=== PATIENT | female | born 1965 | race Caucasian/White ===

== ENCOUNTER 2016-11-11 15:16 | Inpatient (IN) | payer MEDICARE ==
[2016-11-11] MEDS ORDERED: Sodium Chloride 0.9% 10 ML FLUSH Syringe IV PRN (15:35)
[2016-11-11] MEDS ORDERED: TYLENOL 325 MG PO PRN (15:42)
[2016-11-11] MEDS ORDERED: xanAX 0.25 MG PO PRN (15:43)
[2016-11-11] MEDS ORDERED: Zofran 4 MG/2 ML VIAL IV PRN (15:43)
[2016-11-11] MEDS ORDERED: solu-MEDROL 125 MG IV SCH (16:00)
[2016-11-11] MEDS: ROCEPHIN 1 Gm-D5w 50 ml Bag** 50 ML IV SCH (16:47)
[2016-11-11 16:54] LABS: BASOPHIL % 0.2 % (0.0-0.4); Eosinophil % 1.1 % (0.00-5.0); Granulocytes % 74.3 % (36.0-66.0); Lymphocytes % 18.8 % (24.0-44.0); Mean Cell Volume 74.5 fl (78-100); Monocytes % 5.6 % (0.0-12.0); Platelet Count 247 K/mm3 (150-450); Red Blood Count 4.67 M/mm3 (4.1-5.4); Red Cell Distribution Width 15.6 % (11.5-14.0); White Blood Count 12.4 K/mm3 (4.0-10.5)
[2016-11-11 17:00] LABS: Mean Corpuscular Hemoglobin 24.1 pg (26-32)
[2016-11-11] MEDS ORDERED: MEDICATION INTERVENTION MC PRN (17:31)
[2016-11-11] MEDS: Zithromax 500 MG/ 250 ML NaCl Premix 250 ML IV SCH (17:46)
[2016-11-11 17:59] LABS: ALBUMIN 2.4 g/dL (3.4-5.0); ANION GAP 14.9 MEQ/L (5-15); BILIRUBIN,TOTAL 0.2 mg/dL (0.2-1.0); Carbon Dioxide 22.6 mEq/L (21-32); Potassium 5.3 mEq/L (3.5-5.1); Total Protein 8.2 gm/dL (6.4-8.2)
[2016-11-11] MEDS ORDERED: GABAPENTIN 1800 MG PO SCH (18:00)
[2016-11-11] MEDS ORDERED: Sodium Chloride 0.9% 1000 ML 1,000 ML IV STA (18:24)
[2016-11-11] MEDS: Lantus Insulin SQ SCH (18:39)
[2016-11-11] MEDS: NovoLOG Insulin SQ PRN ×2 (18:39→22:49)
[2016-11-11] MEDS: NORCO 5/325 MG PO PRN (18:50)
[2016-11-11] MEDS ORDERED: Advair Hfa 230/21 Mcg COMMON CANISTER IH SCH (19:00)
--- NOTE | 2016-11-11 22:33 | XRAY ---
Indication: COPD. Comparison: April 21, 2015. Portable chest demonstrates new right infrahilar infiltrate/atelectasis and bilaterally prominent interstitial opacities. Heart is not enlarged but there is central vascular prominence. No consolidation or large effusion.
[2016-11-11] MEDS: Zocor 10MG PO SCH (22:48)
[2016-11-11] MEDS: Cymbalta 30 MG Capsule PO SCH (22:48)
[2016-11-11] MEDS: Sodium Chloride 0.9% 10 ML FLUSH Syringe IV SCH (23:01)
[2016-11-12] MEDS: solu-MEDROL 40 MG IV SCH ×2 (01:23→10:41)
[2016-11-12] MEDS: Sodium Chloride 0.9% 10 ML FLUSH Syringe IV SCH (06:09)
[2016-11-12] MEDS ORDERED: PROVENTIL 2.5 MG/3 ML NEB IH PRN (06:47)
[2016-11-12 09:29] LABS: BASOPHIL % 0.2 % (0.0-0.4); Eosinophil % 0.1 % (0.00-5.0); Granulocytes % 88.9 % (36.0-66.0); Lymphocytes % 10.2 % (24.0-44.0); Mean Cell Volume 73.8 fl (78-100); Mean Corpuscular Hemoglobin 23.8 pg (26-32); Mean Platelet Volume 10.7 fl (6-9.5); Monocytes % 0.6 % (0.0-12.0); Platelet Count 199 K/mm3 (150-450); Red Cell Distribution Width 15.7 % (11.5-14.0); White Blood Count 11.4 K/mm3 (4.0-10.5)
[2016-11-12 09:57] LABS: ANION GAP 15.4 MEQ/L (5-15); BLOOD UREA NITROGEN 20 mg/dL (9-20); CHLORIDE 94 mEq/L (98-107); Carbon Dioxide 22.6 mEq/L (21-32); Glucose 478 MG/DL (70-110)
[2016-11-12] MEDS ORDERED: Lasix 40 MG PO SCH (10:00)
[2016-11-12] MEDS ORDERED: NON-FORMULARY ITEM (Omeprazole 20 Mg [Prilosec 20 Mg] 20 MG) PO SCH (10:00)
[2016-11-12] MEDS ORDERED: NON-FORMULARY ITEM (Pravastatin Sodium [Pravachol] 10 MG) PO SCH (10:00)
[2016-11-12] MEDS ORDERED: BABY ASPIRIN 81 MG CHEW PO SCH (10:00)
[2016-11-12] MEDS ORDERED: NON-FORMULARY ITEM (Multivitamin [Multivitamins] 1 EACH) PO SCH (10:00)
[2016-11-12] MEDS ORDERED: NovoLOG Insulin SQ PRN (10:02)
[2016-11-12] MEDS ORDERED: Lantus Insulin SQ SCH ×2 (10:02→13:15)
[2016-11-12 10:07] LABS: SODIUM 126 mEq/L (136-145)
[2016-11-12] MEDS: THERAGRAN MULTIVITAMIN PO SCH (10:41)
[2016-11-12] MEDS: ROCEPHIN 1 Gm-D5w 50 ml Bag** 50 ML IV SCH (10:41)
[2016-11-12] MEDS: Zestril 10 MG PO SCH (10:41)
[2016-11-12] MEDS: CLARITIN 10 MG PO SCH (10:41)
[2016-11-12] MEDS: Lantus Insulin SQ SCH ×3 (10:42→22:25)
[2016-11-12] MEDS: Protonix 40MG Tablet PO SCH (10:42)
[2016-11-12] MEDS: ECOTRIN 81 MG PO SCH (10:42)
[2016-11-12] MEDS ORDERED: Sodium Chloride 0.9% 500 ML 500 ML IV ONE (10:52)
[2016-11-12] MEDS ORDERED: NovoLOG Insulin SQ ONE (10:53)
[2016-11-12] MEDS: Spiriva 18 Mcg/Cap Inhaler IH SCH (11:42)
[2016-11-12] MEDS ORDERED: NovoLOG Insulin SQ SCH ×2 (12:00→17:00)
[2016-11-12] MEDS: ENOXAPARIN SODIUM SQ SCH (12:14)
[2016-11-12] MEDS ORDERED: Dextrose 5% -0.45 NaCl 1000 ML 1,000 ML IV PRN (13:36)
[2016-11-12] MEDS: NOVOLIN R INSULIN (FOR DRIPS)** 100 UNITS in Sodium Chloride 0.9% 100 ML IVPB 100 ML IV SCH (13:38)
[2016-11-12] MEDS ORDERED: Sodium Chloride 0.9% 1000 ML 1,000 ML IV SCH (13:45)
--- NOTE | 2016-11-12 14:28 | HP ---
HISTORY OF PRESENT ILLNESS: This is a 51 y/o patient of Dr. Giovanny Porter who presented to his clinic yesterday with increasing shortness of breath and O2 saturation 87% on room air. He made her a direct admission to the hospital for chronic obstructive pulmonary disease exacerbation. The patient had labs drawn. She was found to have a significantly elevated blood glucose. She does have a known history of diabetes mellitus type 2 as well as hyponatremia. He gave her a liter of NS overnight. The patient reports she does feel better today. She is not on any O2 right now. She reports she was having breathing problems for the past week and a half that were getting worse. She had cough and rhinorrhea. She denied any fever. She reports her blood sugars usually run 60-150 and she used to be on insulin pump, but isn't now and uses Humulin R 500 on a sliding scale. She reports that she has been seeing Dr. 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 REVIEW OF SYSTEMS: She denies any diarrhea. No chest pain. No abdominal pain. No constipation. No diarrhea. She reports pain in her left hip. Otherwise, Review of Systems is negative. PAST MEDICAL HISTORY: Diabetes mellitus type 2, history of left diabetic foot ulcer, asthma, chronic obstructive pulmonary disease, depression, and hypertension. PAST SURGICAL HISTORY: Cholecystectomy, hysterectomy, tonsillectomy, left foot surgery 09/28/16, left hip surgery for bone graft also in 09/2016. SOCIAL HISTORY: She smokes 10 cigarettes per day. She denies any alcohol use. She lives with her daughter. FAMILY HISTORY: Her mother is and had a brain aneurysm. Her father is living. HOME MEDICATIONS: Albuterol 2 puffs q 3 h PRN, aspirin 81 mg PO daily, Symbicort 160/4.5 mcg 2 puffs bid, Cymbalta 60 mg PO q HS, furosemide 40 mg PO daily, gabapentin 1800 mg PO in the evening, lisinopril 10 mg PO daily, loratadine 10 mg PO daily, multivitamin 1 tab daily, omeprazole 20 mg PO daily, pravastatin 10 mg PO daily, Spiriva 1 capsule inhaled daily, again she also says she is on the Humalog 500 at home on a sliding scale. ALLERGIES: ADHESIVE BAND-AIDS, BEE STINGS. PHYSICAL EXAMINATION: VITAL SIGNS: Temperature current 98.2, temperature maximum 99.8, heart rate 99-117, respiratory rate 17-20, O2 saturation 92-95% on room air, BP 104-142/55-74. GENERAL: The patient is lying in bed a pleasant lady in no acute distress. CVS: She has a regular rate and rhythm. No murmurs, gallops, or rubs are appreciated. CHEST: Clear to auscultation bilaterally. No crackles or wheezes. ABDOMEN: Soft, nontender, nondistended with normal bowel sounds. EXTREMITIES: The inside of her left ankle, she has a scar with a pinpoint opening which she states sometimes drains fluid. Her left hip has approximately 4 cm opening that is packed and covered with a bandage. No clubbing, cyanosis, or edema of her lower extremities. LABORATORY DATA: On admission, her glucose was 671, sodium 119, potassium 5.3, chloride 86. WBC 12.4 with 74% granulocytes, 18% lymphocytes, albumin 2.4. Repeat WBC this morning 11.4 with 88% granulocytes, 10% lymphocytes. She has a wound culture in lab from her left foot and blood cultures in lab. Chest x-ray was read as new right infrahilar infiltrates, this was a portable x-ray. ASSESSMENT AND PLAN: 1. CHRONIC OBSTRUCTIVE PULMONARY DISEASE EXACERBATION. She was started on IV ceftriaxone and azithromycin. She was also started on methylprednisolone. She had 125 mg IV once and then decreased to 40 mg IV q 8. She is also receiving breathing treatments. She is currently not needing O2. 2. DIABETES MELLITUS TYPE 2 UNCONTROLLED. I have ordered an Hgb A1C. She has been started on Lantus. Will start her on some short-acting insulin with her meals and she may need her Lantus increased. We are rechecking a BMP this morning. 3. HYPERTENSION. Currently well controlled on her home medications. 4. LEFT HIP WOUND. Her wound VAC had to be removed as her daughter couldn't come back in to bring in the cord and chicken sexer. Will as for physical therapy consult. 5. PNEUMONIA IN THE RIGHT LUNG. Will continue with current antibiotics. 6. HYPONATREMIA. Again, she got a liter of NS last night. We are rechecking her sodium this morning. 7. DEEP VEIN THROMBOSIS PROPHYLAXIS. Will start her on Lovenox.
[2016-11-12 15:26] LABS: ANION GAP 14.3 MEQ/L (5-15); Carbon Dioxide 21.8 mEq/L (21-32); MAGNESIUM 1.5 mg/dL (1.8-2.4); Potassium 4.2 mEq/L (3.5-5.1)
[2016-11-12] MEDS: Magnesium 1 Gm / 100 Ml D5W*** 100 ML IV PRN ×2 (16:27→17:02)
[2016-11-12] MEDS: Zithromax 500 MG/ 250 ML NaCl Premix 250 ML IV SCH (17:40)
[2016-11-12] MEDS: PATIENT OWN MEDICATION PO SCH (17:41)
[2016-11-12 20:33] LABS: ANION GAP 14.8 MEQ/L (5-15); Carbon Dioxide 20.4 mEq/L (21-32); Potassium 4.5 mEq/L (3.5-5.1)
[2016-11-12] MEDS: Cymbalta 30 MG Capsule PO SCH (22:01)
[2016-11-12] MEDS: Zocor 10MG PO SCH (22:01)
[2016-11-12] MEDS: Sodium Chloride 0.9% 1000 ML 1,000 ML IV SCH (22:02)
[2016-11-12] MEDS ORDERED: Lantus Insulin ONE (22:21)
[2016-11-12 23:58] LABS: ANION GAP 10.9 MEQ/L (5-15); BLOOD UREA NITROGEN 21 mg/dL (9-20); CHLORIDE 99 mEq/L (98-107); Carbon Dioxide 24.2 mEq/L (21-32); Glucose 140 MG/DL (70-110); Potassium 4.4 mEq/L (3.5-5.1); SODIUM 130 mEq/L (136-145)
[2016-11-13] MEDS: NOVOLIN R INSULIN (FOR DRIPS)** 100 UNITS in Sodium Chloride 0.9% 100 ML IVPB 100 ML IV SCH (05:02)
[2016-11-13 05:38] LABS: BASOPHIL % 0.2 % (0.0-0.4); Eosinophil % 0.8 % (0.00-5.0); Granulocytes % 64.4 % (36.0-66.0); Lymphocytes % 28.6 % (24.0-44.0); Mean Cell Volume 74.4 fl (78-100); Mean Platelet Volume 9.5 fl (6-9.5); Platelet Count 172 K/mm3 (150-450); Red Blood Count 3.79 M/mm3 (4.1-5.4); Red Cell Distribution Width 15.5 % (11.5-14.0)
[2016-11-13 05:56] LABS: ANION GAP 12.6 MEQ/L (5-15); BLOOD UREA NITROGEN 19 mg/dL (9-20); CHLORIDE 99 mEq/L (98-107); Carbon Dioxide 22.8 mEq/L (21-32); Glucose 135 MG/DL (70-110); SODIUM 130 mEq/L (136-145)
[2016-11-13] MEDS ORDERED: NovoLOG Insulin SQ PRN (06:00)
[2016-11-13] MEDS: Magnesium 1 Gm / 100 Ml D5W*** 100 ML IV PRN ×2 (07:27→08:24)
[2016-11-13] MEDS: NovoLOG Insulin SQ SCH ×3 (08:02→16:43)
[2016-11-13] MEDS: Spiriva 18 Mcg/Cap Inhaler IH SCH (09:05)
[2016-11-13] MEDS: ADVAIR 500-50 DISKUS IH SCH ×2 (09:06→18:49)
--- NOTE | 2016-11-13 09:30 | PCM.NOTE ---
Date and Time: 11/13/16924 Subjective Assessment: Patient reports she wants to go home but she was just taken off the insulin drip last night and started on lantus and novolog and she does not have these insulins at home. I explained to her that is best to make sure that her blood glucoses are stable and that she doesn't have any lows so that she won't need to come right back and also it is best for her wound healing to have her blood glucoses controlled as her Hgb A1C was 12. She reports she used to see Dr. Roger but needs to make an appointment with him. She reports her breathing is better. - Review of Systems Constitutional: No Symptoms Eyes: No Symptoms Ears, Nose, & Throat: No Symptoms Respiratory: Cough Cardiac: No Symptoms Abdominal/Gastrointestinal: No Symptoms Genitourinary Symptoms: No Symptoms Musculoskeletal: No Symptoms Skin: No Symptoms Neurological: No Symptoms Objective Exam General Appearance: no apparent distress, alert Neurologic Exam: alert, cooperative, normal mood/affect Skin Exam: normal color, warm, dry, other (areas on toes with dried blood, inside of left ankle with scar, left hip with dressing in place (wound was visualized yesterday)) Respiratory Exam: normal breath sounds, lungs clear, No crackles/rales, No rhonchi, No wheezing Cardiovascular Exam: regular rate/rhythm, normal heart sounds, No murmur, No friction rub, No gallop Gastrointestinal/Abdomen Exam: soft, normal bowel sounds, No tenderness, No distention, No mass Extremity Exam: other (no c/c/e, +2 dorsalis pedis pusles bilat) OBJECTIVE DATA Vital Signs: Vital Signs - 24 hr Temp Pulse Resp BP BP Pulse Ox 11/13/16 08:00 98 H 11/13/16 05:00 98.5 F 98 H 20 136/77 96 11/13/16 00:00 98.1 F 99 H 19 128/73 98 11/12/16 20:00 96.0 F 100 H 19 112/71 97 11/12/16 16:00 98.2 F 105 H 19 112/71 94 L 11/12/16 12:00 98.4 F 112 H 24 141/65 90 L Pain Assessment - Last Documented Pain Intensity 0 Pain Scale Used FLACC Intake and Output: Intake & Output 03/10/11/12/16 11/13/16 11/14/16 05:59 05:59 06:59 06:59 Intake Total Output Total Balance Weight Lab Results: Accuchecks 11/13/1611/13/1611/12/1611/12/1611/12/1611/12/1611/12/1611/12/1611/12/1611/12/1611/12/1611/12/1611/12/1611/12/16 Time 00:00 Time 23:05 Time 22:25 Time 22:05 Time 21:00 Time 20:00 Time 19:00 Time 18:00 Time 17:00 Time 16:00 Time 15:00 Time 14:00 Time 13:00 Accucheck Value: 145 Accucheck Value: 154 Accucheck Value: 191 Accucheck Value: 254 Accucheck Value: 352 Accucheck Value: 400 Accucheck Value: 362 Accucheck Value: 356 Accucheck Value: 373 Accucheck Value: 471 Accucheck Value: 531 Accucheck Value: 590 Lab Results-Last 24 Hours 11/12/16 11/12/16 11/12/16 Range/Units 09:15 09:15 09:15 WBC 11.4 H (4.0-10.5) K/mm3 RBC 4.70 (4.1-5.4) M/mm3 Hgb 11.2 L (12.0-16.0) gm/dl Hct 34.7 L (35-47) % MCV 73.8 L (78-100) fl MCH 23.8 L (26-32) pg MCHC 32.3 (32-36) g/dl RDW 15.7 H (11.5-14.0) % Plt Count 199 (150-450) K/mm3 MPV 10.7 H (6-9.5) fl Gran % 88.9 H (36.0-66.0) % Lymphocytes % 10.2 L (24.0-44.0) % Monocytes % 0.6 (0.0-12.0) % Eosinophils % 0.1 (0.00-5.0) % Basophils % 0.2 (0.0-0.4) % Basophils # 0.02 (0-0.4) Sodium 126 L (136-145) mEq/L Potassium 6.0 H* (3.5-5.1) mEq/L Chloride 94 L (98-107) mEq/L Carbon Dioxide 22.6 (21-32) mEq/L Anion Gap 15.4 H (5-15) MEQ/L BUN 20 (9-20) mg/dL Creatinine 1.00 (0.55-1.30) mg/dl Estimated GFR > 60 ML/MIN Glucose 478 H (70-110) MG/DL Hemoglobin A1c 12.0 H (4.5-6.2) Calcium 8.9 (8.5-10.1) mg/dL Magnesium (1.8-2.4) mg/dL Serum , Qual (Negative) 11/12/16 11/12/16 11/12/16 Range/Units 11:40 15:00 15:00 WBC (4.0-10.5) K/mm3 RBC (4.1-5.4) M/mm3 Hgb (12.0-16.0) gm/dl Hct (35-47) % MCV (78-100) fl MCH (26-32) pg MCHC (32-36) g/dl RDW (11.5-14.0) % Plt Count (150-450) K/mm3 MPV (6-9.5) fl Gran % (36.0-66.0) % Lymphocytes % (24.0-44.0) % Monocytes % (0.0-12.0) % Eosinophils % (0.00-5.0) % Basophils % (0.0-0.4) % Basophils # (0-0.4) Sodium 127 L (136-145) mEq/L Potassium 4.2 (3.5-5.1) mEq/L Chloride 95 L (98-107) mEq/L Carbon Dioxide 21.8 (21-32) mEq/L Anion Gap 14.3 (5-15) MEQ/L BUN 22 H (9-20) mg/dL Creatinine 1.11 (0.55-1.30) mg/dl Estimated GFR 56 ML/MIN Glucose 582 H* 471 H (70-110) MG/DL Hemoglobin A1c (4.5-6.2) Calcium 8.6 (8.5-10.1) mg/dL Magnesium 1.5 L (1.8-2.4) mg/dL Serum , Qual NEGATIVE (Negative) 11/12/16 11/12/16 11/13/16 Range/Units 20:11 23:40 05:25 WBC 9.0 (4.0-10.5) K/mm3 RBC 3.79 L (4.1-5.4) M/mm3 Hgb 9.1 L (12.0-16.0) gm/dl Hct 28.2 L (35-47) % MCV 74.4 L (78-100) fl MCH 24.0 L (26-32) pg MCHC 32.3 (32-36) g/dl RDW 15.5 H (11.5-14.0) % Plt Count 172 (150-450) K/mm3 MPV 9.5 (6-9.5) fl Gran % 64.4 (36.0-66.0) % Lymphocytes % 28.6 (24.0-44.0) % Monocytes % 6.0 (0.0-12.0) % Eosinophils % 0.8 (0.00-5.0) % Basophils % 0.2 (0.0-0.4) % Basophils # 0.02 (0-0.4) Sodium 130 L 130 L (136-145) mEq/L Potassium 4.5 4.4 (3.5-5.1) mEq/L Chloride 99 99 (98-107) mEq/L Carbon Dioxide 20.4 L 24.2 (21-32) mEq/L Anion Gap 14.8 10.9 (5-15) MEQ/L BUN 21 H 21 H (9-20) mg/dL Creatinine 1.21 0.98 (0.55-1.30) mg/dl Estimated GFR 50 > 60 ML/MIN Glucose 342 H 140 H (70-110) MG/DL Hemoglobin A1c (4.5-6.2) Calcium 8.3 L 8.3 L (8.5-10.1) mg/dL Magnesium (1.8-2.4) mg/dL Serum , Qual (Negative) 11/13/16 11/13/16 Range/Units 05:25 05:25 WBC (4.0-10.5) K/mm3 RBC (4.1-5.4) M/mm3 Hgb (12.0-16.0) gm/dl Hct (35-47) % MCV (78-100) fl MCH (26-32) pg MCHC (32-36) g/dl RDW (11.5-14.0) % Plt Count (150-450) K/mm3 MPV (6-9.5) fl Gran % (36.0-66.0) % Lymphocytes % (24.0-44.0) % Monocytes % (0.0-12.0) % Eosinophils % (0.00-5.0) % Basophils % (0.0-0.4) % Basophils # (0-0.4) Sodium 130 L (136-145) mEq/L Potassium 4.0 (3.5-5.1) mEq/L Chloride 99 (98-107) mEq/L Carbon Dioxide 22.8 (21-32) mEq/L Anion Gap 12.6 (5-15) MEQ/L BUN 19 (9-20) mg/dL Creatinine 0.85 (0.55-1.30) mg/dl Estimated GFR > 60 ML/MIN Glucose 135 H (70-110) MG/DL Hemoglobin A1c (4.5-6.2) Calcium 8.5 (8.5-10.1) mg/dL Magnesium 1.7 L (1.8-2.4) mg/dL Serum , Qual (Negative) Radiology Exams: Radiology Procedures Category Date Time Status CHEST 1 VIEW (PORTABLE) Routine Exams 11/11/16 15:36 Completed CHEST 2 VIEWS (PA AND LAT) Routine Exams 11/13/16 08:00 Taken Assessment/Plan (1) COPD with exacerbation Current Visit: Yes Status: Acute Assessment & Plan: Continue antibiotics. I stopped her steroids yesterday as she did not have much wheezing and her blood glucoses were >500 requiring an insulin drip. Code(s): J44.1 - CHRONIC OBSTRUCTIVE PULMONARY DISEASE W (ACUTE) EXACERBATION (2) Pneumonia Current Visit: Yes Status: Acute Qualifiers: Laterality: right Assessment & Plan: Continue antibiotics. She is not requiring oxygen. 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 She had required about 120 units of lantus over the past 24 hours so I started her on lantus 60 units which she got about 10 pm last night before she came off the drip and I have ordered novolog 14 units tid with her meals. She will need orders for these insulins at home. She does not currently have an insulin pump at home and only has some kind of 500 units/mL of insulin at home which sounds like a short acting insulin. Code(s): E11.65 - TYPE 2 DIABETES MELLITUS WITH HYPERGLYCEMIA (4) Hypertension Current Visit: Yes Status: Acute Assessment & Plan: Currently well controlled. Code(s): I10 - ESSENTIAL (PRIMARY) HYPERTENSION (5) Hyponatremia Current Visit: Yes Status: Acute Assessment & Plan: Improved but her Na is still low at 130. Code(s): E87.1 - HYPO-OSMOLALITY AND HYPONATREMIA (6) Hypomagnesemia Current Visit: Yes Status: Acute Assessment & Plan: She was given 2 grams of Magnesium sulfate this AM. Recheck magnesium in AM. Code(s): E83.42 - HYPOMAGNESEMIA (7) Wound, open, hip or thigh Current Visit: Yes Status: Acute Assessment & Plan: PT consulted. Continue dressing changes. Wound vac could not be continued her as her family could not bring in her battery pack/cord. She will follow up with home health after discharge and her wound care center at [facility]. Code(s): S71.009A - UNSPECIFIED OPEN WOUND, UNSPECIFIED HIP, INITIAL ENCOUNTER; S71.109A - UNSPECIFIED OPEN WOUND, UNSPECIFIED THIGH, INITIAL ENCOUNTER
[2016-11-13] MEDS: Sodium Chloride 0.9% 1000 ML 1,000 ML IV SCH ×2 (09:31→20:05)
[2016-11-13] MEDS: ECOTRIN 81 MG PO SCH (09:58)
[2016-11-13] MEDS: Zestril 10 MG PO SCH (09:58)
[2016-11-13] MEDS: THERAGRAN MULTIVITAMIN PO SCH (09:58)
[2016-11-13] MEDS: CLARITIN 10 MG PO SCH (09:59)
[2016-11-13] MEDS: ROCEPHIN 1 Gm-D5w 50 ml Bag** 50 ML IV SCH (09:59)
[2016-11-13] MEDS: Protonix 40MG Tablet PO SCH (10:01)
[2016-11-13] MEDS: ENOXAPARIN SODIUM SQ SCH (10:01)
--- NOTE | 2016-11-13 10:05 | XRAY ---
Indication: Follow-up pneumonia. Comparison: November 11, 2016. PA/lateral chest again demonstrates bilateral interstitial opacities and right lower lobe infiltrate/atelectasis unchanged. Heart is not enlarged and the vascularity appears more normal. No new cardiopulmonary abnormalities. Comment: Preliminary interpretation was made by [facility]. No discrepancy.
[2016-11-13] MEDS: Zithromax 500 MG/ 250 ML NaCl Premix 250 ML IV SCH (16:43)
[2016-11-13] MEDS: PATIENT OWN MEDICATION PO SCH (16:43)
[2016-11-13] MEDS: NORCO 5/325 MG PO PRN ×2 (16:44→23:21)
[2016-11-13] MEDS: Cymbalta 30 MG Capsule PO SCH (21:57)
[2016-11-13] MEDS: Zocor 10MG PO SCH (21:57)
[2016-11-13] MEDS ORDERED: Lantus Insulin SQ SCH ×2 (22:00)
[2016-11-14] MEDS: Sodium Chloride 0.9% 1000 ML 1,000 ML IV SCH (05:27)
[2016-11-14 05:54] LABS: BASOPHIL % 0.4 % (0.0-0.4); Eosinophil % 1.9 % (0.00-5.0); Granulocytes % 52.3 % (36.0-66.0); Lymphocytes % 37.9 % (24.0-44.0); Mean Cell Volume 76.3 fl (78-100); Mean Corpuscular Hemoglobin 24.5 pg (26-32); Mean Platelet Volume 9.7 fl (6-9.5); Monocytes % 7.5 % (0.0-12.0); Platelet Count 185 K/mm3 (150-450); Red Blood Count 3.71 M/mm3 (4.1-5.4); Red Cell Distribution Width 15.8 % (11.5-14.0); White Blood Count 5.4 K/mm3 (4.0-10.5)
[2016-11-14 06:24] LABS: ANION GAP 13.4 MEQ/L (5-15); BLOOD UREA NITROGEN 14 mg/dL (9-20); CHLORIDE 106 mEq/L (98-107); Glucose 81 MG/DL (70-110); Potassium 4.2 mEq/L (3.5-5.1); SODIUM 140 mEq/L (136-145)
[2016-11-14] MEDS: Spiriva 18 Mcg/Cap Inhaler IH SCH (06:54)
[2016-11-14] MEDS: ADVAIR 500-50 DISKUS IH SCH (06:54)
--- NOTE | 2016-11-14 08:02 | PCM.DCORD ---
- Discharge Discharge Date: 11/14/16 Disposition: Home, Self-Care Condition: Stable Prescriptions: New Insulin Glargine,Hum.rec.anlog [Lantus Solostar] 50 unit SQ DAILY #15 ml Insulin Aspart [Novolog Flexpen] 14 unit SQ AC #15 ml Azithromycin 250 mg [Zithromax 250 MG TABLET] 250 mg PO DAILY #3 tablet Continue Multivitamin [Multivitamins] 1 each PO DAILY Duloxetine HCl 30 mg [Cymbalta 30 MG Capsule] 60 mg PO HS Aspirin 81 gm Chew [Baby Aspirin 81 mg Chew] 81 mg PO DAILY Omeprazole 20 MG [Prilosec 20 mg] 20 mg PO DAILY Budesonide/Formoterol Fumarate [Symbicort 160-4.5 Mcg Inhaler] 2 puff IH BID Albuterol Sulfate [Proair Hfa] 2 puff IH Q3H/PRN PRN PRN Reason: RESP Pravastatin Sodium [Pravachol] 10 mg PO DAILY Loratadine 10 mg [Claritin 10 mg] 10 mg PO DAILY Lisinopril 10 mg [Zestril 10 MG] 10 mg PO DAILY Gabapentin [Gralise] 1,800 mg PO EVENING MEAL Furosemide 40 mg [Lasix 40 MG] 40 mg PO DAILY Tiotropium [place] Inhaler [Spiriva 18 Mcg/Cap Inhaler] 1 ea IH BID Follow up with: ROSELIA BOWER [Primary Care Provider] - 1 Week MARCO A REBOLLAR [NON-STAFF PHY W/O PRIVILEGES] - 1 Week
[2016-11-14] MEDS: Zestril 10 MG PO SCH (08:28)
[2016-11-14] MEDS: THERAGRAN MULTIVITAMIN PO SCH (08:28)
[2016-11-14] MEDS: ENOXAPARIN SODIUM SQ SCH (08:28)
[2016-11-14] MEDS: ECOTRIN 81 MG PO SCH (08:28)
[2016-11-14] MEDS: NovoLOG Insulin SQ SCH (08:28)
[2016-11-14] MEDS: CLARITIN 10 MG PO SCH (08:28)
[2016-11-14] MEDS: Protonix 40MG Tablet PO SCH (08:28)
[2016-11-14] MEDS: ROCEPHIN 1 Gm-D5w 50 ml Bag** 50 ML IV SCH (08:28)
[2016-11-14 08:43] VITALS: BP 165/85; PULSE 90; O2SAT 96
--- NOTE | 2016-11-14 18:28 | PCM.DS ---
Discharge Summary Date of Admission: 11/12/16 11:40 Date of Discharge: 11/14/16 Admitting Physician: ROSELIA BOWER Consults: Consults on Case 11/12/16 19:20 Nutritional Consult ROUTINE Primary Care Provider: ROSELIA BOWER Allergies Allergies Adhesive Bandage *RETIRED-12/26/12 [Adhesive Bandage] Allergy (Mild, Verified 18:22) bee stings Allergy (Mild, Uncoded 02/07/16 18:22) Hospital Summary - Hospital Course Hospital Course: she presented with shortness of breath to office was found to have O2 at 87% after walking to exam room and improved with rest. SHe was very wheezing and tachypneic and arrangements made for direct admission. She was treated with steroids and antibiotics found to have pneumonia but did not require O2. IT was discovered she stopped using her insulin pump a while back and her sugars are very uncontrolled and in the 600's on arrival. With the sugar readings adn requirement for steroids fro the lungs she was placed on insulin gtt with control of her hyperglycemia and changed over to subcutaneous basal bolus. She tolerated this well breathing was much better she was weaned all the way off the steroids and antibiotic continued at discharge. She was given new Rx for lantus and novolog pens to use as well as rx for mag ox with her hypomagnesemia while inpatient. - Vitals & Intake/Output Vital Signs: Vital Signs Temperature 98.3 F 11/14/16 08:00 Pulse Rate 90 11/14/16 08:00 Respiratory Rate 16 11/14/16 08:00 Blood Pressure 165/85 11/14/16 08:00 O2 Sat by Pulse Oximetry 96 11/14/16 08:00 Intake & Output: Intake & Output 11/12/16 11/13/16 11/14/16 11/15/16 10:59 11:59 11:59 11:59 Intake Total 5208 Output Total 3800 Balance 1408 Weight 87.7 kg - Lab Result Diagrams: 11/14/16 05:20 11/14/16 05:20 Lab Results-Last 24 Hrs: Accuchecks Date 11/14/16 Date 11/13/16 Time 05:30 Accucheck Value: 166 Lab Results-Last 24 Hours 11/14/16 11/14/16 11/14/16 Range/Units 05:20 05:20 05:20 WBC 5.4 (4.0-10.5) K/mm3 RBC 3.71 L (4.1-5.4) M/mm3 Hgb 9.1 L (12.0-16.0) gm/dl Hct 28.3 L (35-47) % MCV 76.3 L (78-100) fl MCH 24.5 L (26-32) pg MCHC 32.2 (32-36) g/dl RDW 15.8 H (11.5-14.0) % Plt Count 185 (150-450) K/mm3 MPV 9.7 H (6-9.5) fl Gran % 52.3 (36.0-66.0) % Lymphocytes % 37.9 (24.0-44.0) % Monocytes % 7.5 (0.0-12.0) % Eosinophils % 1.9 (0.00-5.0) % Basophils % 0.4 (0.0-0.4) % Basophils # 0.02 (0-0.4) Sodium 140 (136-145) mEq/L Potassium 4.2 (3.5-5.1) mEq/L Chloride 106 (98-107) mEq/L Carbon Dioxide 25.0 (21-32) mEq/L Anion Gap 13.4 (5-15) MEQ/L BUN 14 (9-20) mg/dL Creatinine 0.75 (0.55-1.30) mg/dl Estimated GFR > 60 ML/MIN Glucose 81 (70-110) MG/DL Calcium 8.4 L (8.5-10.1) mg/dL Magnesium 1.5 L (1.8-2.4) mg/dL Micro Results-Entire Visit: Microbiology 11/11/16 16:35 Blood Culture - Preliminary Blood NO GROWTH TO DATE 11/11/16 16:30 Blood Culture - Preliminary Blood NO GROWTH TO DATE 11/11/16 19:06 Gram Stain - Final Foot - Left Top Wound Culture - Preliminary ORGANISMS ISOLATED ARE CONSISTENT WITH NORMAL SKIN HEATHER MODERATE GROWTH, NO PREDOMINANT ORGANISM Accuchecks Date 11/14/16 Date 11/13/16 Time 05:30 Accucheck Value: 166 - Radiology Exams Ordered Rad Exams-Entire Visit: Radiology Procedures Category Date Time Status CHEST 2 VIEWS (PA AND LAT) Routine Exams 11/13/16 08:00 Completed - Procedures and Test Procedures and Tests throughout Hospitalization: Therapy Orders & Screens 11/11/16 15:36 Respiratory Therapy Consult ROUTINE Comment: Reason For Exam: 11/11/16 16:20 OT Screen per Nursing Assess ONCE Comment: Protocol Order Physician Instructions: Greater than 3 points order OT Admission Screening Reason For Exam: Triggered on Admission Diagnosis: Exac. COPD Open Wound/Cellutlitis/Pressure Ulcers: Yes Acute Fx/ORIF/Change in wt bearing status: No Severe MUSCULOSKELETAL pain: No ADL Dysfunction: No Acute CVA w/Hemiparesis/Hemiplegia: No Decreased Functional Mobility/Strength: Yes Sprain/Strain: No Acute Post-op Mobility Dysfunction: No Total Points: 6 PT Screen per Nursing Assess ONCE Comment: Protocol Order Physician Instructions: Greater than 3 points order PT Admission Screenin Reason For Exam: Triggered on Admission Diagnosis: Exac. COPD Open Wound/Cellutlitis/Pressure Ulcers: Yes Acute Fx/ORIF/Change in wt bearing status: No Severe MUSCULOSKELETAL pain: No ADL Dysfunction: No Acute CVA w/Hemiparesis/Hemiplegia: No Decreased Functional Mobility/Strength: Yes Sprain/Strain: No Acute Post-op Mobility Dysfunction: No Total Points: 6 RT Screen per Nursing Assess ONCE Comment: Protocol Order Physician Instructions: Greater than 3 points order RT Admission Screen Reason For Exam: Triggered on Admission Diagnosis: Exac. COPD Diagnosis: Exac. COPD Pneumonia: No Home O2: No Asthma: Yes CHF: No Home CPAP/BIPAP: Yes Home Nebs/MDI: Yes Total Points: 14 Smoking Cessation Education ONCE Comment: Diagnosis: Exac. COPD Smoking Status: Current every day smoker How long have you smoked: 33 Have you smoked in the past 12 months: Yes Approximately how many cigarettes per day: 7 Do you dip or chew tobacco: No 11/12/16 06:47 neb [Respiratory Nebulizer] PRN Comment: Diagnosis: Exac. COPD 11/12/16 07:00 Respiratory MDI UD Comment: SPIRIVA DAILY Diagnosis: Exac. COPD 11/12/16 10:00 PT Eval & Treat (MD Order) ROUTINE Evaluate: Yes Treat: Yes Reason for Eval:: left hip wound, hx of wound vac from [facility] Diagnosis: Exac. COPD 11/12/16 10:53 EKG STAT Comment: Diagnosis: Exac. COPD Discharge Exam General Appearance: no apparent distress, obese Neurologic Exam: alert, 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 Skin Exam: warm, dry Eye Exam: No scleral icterus Ears, Nose, Throat Exam: moist mucous membranes Neck Exam: non-tender, supple Respiratory Exam: normal breath sounds, No accessory muscle use, No rhonchi, No wheezing Cardiovascular Exam: regular rate/rhythm, normal heart sounds Gastrointestinal/Abdomen Exam: soft, normal bowel sounds, No tenderness, No distention Extremity Exam: normal inspection, No calf tenderness, No pedal edema Final Diagnosis/Problem List - Final Discharge Diagnosis/Problem (1) Pneumonia Status: Acute (2) COPD with exacerbation Status: Acute (3) Diabetes mellitus type 2, uncontrolled Status: Acute (4) Hypertension Status: Acute (5) Hypomagnesemia Status: Acute (6) Noncompliance Status: Acute (7) Wound, open, foot with complication Status: Acute - Discharge Discharge Date: 11/14/16 Disposition: Home, Self-Care Condition: Stable Prescriptions: New Insulin Glargine,Hum.rec.anlog [Lantus Solostar] 50 unit SQ DAILY #15 ml Insulin Aspart [Novolog Flexpen] 14 unit SQ AC #15 ml Azithromycin 250 mg [Zithromax 250 MG TABLET] 250 mg PO DAILY #3 tablet Magnesium Oxide 400 mg [Mag-Ox 400] 400 mg PO BID #60 tablet Continue Multivitamin [Multivitamins] 1 each PO DAILY Duloxetine HCl 30 mg [Cymbalta 30 MG Capsule] 60 mg PO HS Aspirin 81 gm Chew [Baby Aspirin 81 mg Chew] 81 mg PO DAILY Omeprazole 20 MG [Prilosec 20 mg] 20 mg PO DAILY Budesonide/Formoterol Fumarate [Symbicort 160-4.5 Mcg Inhaler] 2 puff IH BID Albuterol Sulfate [Proair Hfa] 2 puff IH Q3H/PRN PRN PRN Reason: RESP Pravastatin Sodium [Pravachol] 10 mg PO DAILY Loratadine 10 mg [Claritin 10 mg] 10 mg PO DAILY Lisinopril 10 mg [Zestril 10 MG] 10 mg PO DAILY Gabapentin [Gralise] 1,800 mg PO EVENING MEAL Furosemide 40 mg [Lasix 40 MG] 40 mg PO DAILY Tiotropium [place] Inhaler [Spiriva 18 Mcg/Cap Inhaler] 1 ea IH BID Instructions: Take Care of Your Feet If You Have Diabetes, Insulin Aspart., Insulin Glulisine., Carbohydrate-Counting Diet, Chronic Obstructive Pulmonary Disease, Diabetes Type 2 Follow up with: MARCO A REBOLLAR [NON-STAFF PHY W/O PRIVILEGES] - 1 Week ROSELIA BOWER [Primary Care Provider] - 1 Week
== END 2016-11-14 10:45 | disposition home or self-care (01) | DRG 194 ==
LOC: MED SURG 15:16 → INTOOBSV 15:16 → OBSVTOIN 15:16 → INTOOBSV 11-12 11:40 → OBSVTOIN 11-12 11:40 → ICU 11-12 13:00 → MED SURG 11-12 13:00
PROVIDERS: ADMIT Family Medicine; ATTEND Family Medicine
DX: J18.9 Pneumonia, unspecified organism (principal); J44.1 Chronic obstructive pulmonary disease with (acute) exacerbation; E87.1 Hypo-osmolality and hyponatremia; I10 Essential (primary) hypertension; E11.40 Type 2 diabetes mellitus with diabetic neuropathy, unspecified; E11.65 Type 2 diabetes mellitus with hyperglycemia; Z79.01 Long term (current) use of anticoagulants; E83.42 Hypomagnesemia; Z91.19 Patient's noncompliance with other medical treatment and regimen; S71.009A Unspecified open wound, unspecified hip, initial encounter; S71.109A Unspecified open wound, unspecified thigh, initial encounter; S91.309A Unspecified open wound, unspecified foot, initial encounter; K21.9 Gastro-esophageal reflux disease without esophagitis; G47.33 Obstructive sleep apnea (adult) (pediatric); F32.9 Major depressive disorder, single episode, unspecified; Z79.4 Long term (current) use of insulin; Z79.899 Other long term (current) drug therapy; J45.909 Unspecified asthma, uncomplicated
CPT/HCPCS: 36415; 71010; 71020; 80048; 80053; 82947; 82962; 83036; 83605; 83735; 83880; 84134; 84703; 85025; 87040; 87070; 93005; 93268; 94640; G0378; J0456; J0696; J1650; J1815; J2920; J3475; A9270-GY

== ENCOUNTER 2017-01-22 12:47 | Emergency (ER) | payer MEDICARE ==
[2017-01-22] MEDS ORDERED: DUONEB 0.5-3 MG/3 ml Neb IH ONE ×2 (13:23→13:29)
[2017-01-22] MEDS ORDERED: Sodium Chloride 0.9% 1000 ML 1,000 ML IV SCH (13:30)
[2017-01-22] MEDS ORDERED: Sodium Chloride 0.9% 1000 ML 1,000 ML ONE (13:42)
[2017-01-22 13:46] LABS: Mean Cell Volume 72.3 fl (78-100); Mean Corpuscular Hemoglobin 21.5 pg (26-32); Platelet Count 235 K/mm3 (150-450); Red Blood Count 3.76 M/mm3 (4.1-5.4)
--- NOTE | 2017-01-22 13:53 | ERPHSYRPT ---
- History of Present Illness Time Seen by Provider: 01/22/17 12:53 Source: patient, other ([facility] nurse) Patient Subjective Stated Complaint: pt states she seen Dr. Bower on 01/20/17 and he instructed her to come to ER if she was not feeling better over the weekend. pt c/o feeling weak with Sob. Pt currently being treated for a wound to left foot and left hip. Triage Nursing Assessment: pt pink, warm, dry. lung sounds have some crackles throughout. pt afebrile. Physician History: CC: short of breath HX: 51 y/o chronically ill patient of Dr Bower. She has [facility]. She has recent diabetic foot infection, left hip wound infection wearing wound vac. She recent pneumonia. She has PICC. She is now on insulin shots. She reports increased dyspnea. Nurse heard wheezing and sent her to ER. No fever or chills. She has general malaise and fatigue. She continues to smoke but has cut down. Timing/Duration: day(s) (couple) Severity: moderate Allergies/Adverse Reactions: Adhesive Bandage *RETIRED-12/26/12 [Adhesive Bandage] Allergy (Mild, Verified 13:08) bee stings Allergy (Mild, Uncoded 01/22/17 13:08) Home Medications: Aspirin 81 gm Chew [Baby Aspirin 81 mg Chew] 81 mg PO DAILY 11/17/12 [ History] Duloxetine HCl 30 mg [Cymbalta 30 MG Capsule] 60 mg PO HS 11/17/12 [ History] Multivitamin [Multivitamins] 1 each PO DAILY 11/17/12 [History] Albuterol Sulfate [Proair Hfa] 2 puff IH Q3H/PRN PRN 04/21/15 [History] Budesonide/Formoterol Fumarate [Symbicort 160-4.5 Mcg Inhaler] 2 puff IH BID [History] Omeprazole 20 MG [Prilosec 20 mg] 20 mg PO DAILY 04/21/15 [History] Pravastatin Sodium [Pravachol] 10 mg PO DAILY 02/07/16 [History] Furosemide 40 mg [Lasix 40 MG] 40 mg PO DAILY 11/11/16 [History] Gabapentin [Gralise] 1,800 mg PO EVENING MEAL 11/11/16 [History] Lisinopril 10 mg [Zestril 10 MG] 10 mg PO DAILY 11/11/16 [History] Loratadine 10 mg [Claritin 10 mg] 10 mg PO DAILY 11/11/16 [History] Insulin Aspart [Novolog Flexpen] 0 unit SQ AC 01/22/17 [History] Hx Tetanus, Diphtheria Vaccination/Date Given: Yes (up to date) Hx Influenza Vaccination/Date Given: No Hx Pneumococcal Vaccination/Date Given: No Immunizations Up to Date: Yes - Review of Systems Constitutional: Fatigue, Malaise, Weakness, No Fever, No Chills Eyes: No Symptoms Ears, Nose, & Throat: No Symptoms Respiratory: Cough, Dyspnea Cardiac: No Chest Pain Abdominal/Gastrointestinal: No Abdominal Pain Skin: No Rash Neurological: No Focal Weakness, No Headache All Other Systems: Reviewed and Negative - Past Medical History Pertinent Past Medical History: Yes Neurological History: No Pertinent History ENT History: No Pertinent History Cardiac History: Hypertension Respiratory History: Asthma, COPD, Pneumonia Endocrine Medical History: Diabetes Type II Musculoskeletal History: Fractures GI Medical History: GERD History: No Pertinent History Psycho-Social History: Anxiety, Depression Female Reproductive Disorders: No Pertinent History Other Medical History: left ankle fracture. wound vac left hip. wound center left foot - Past Surgical History Past Surgical History: Yes Neuro Surgical History: No Pertinent History Cardiac: No Pertinent History Respiratory: No Pertinent History Gastrointestinal: Cholecystectomy, Exploratory Laparoscopy Genitourinary: No Pertinent History Musculoskeletal: No Pertinent History Female Surgical History: Section, Hysterectomy Other Surgical History: foot surgery, screw placed in left big toe, removal, and antibiotic beed placement - Social History Smoking Status: Current every day smoker How long have you smoked: 34 Exposure to second hand smoke: Yes Drug Use: none Patient Lives Alone: No - Female History Hx Now: No - Nursing Vital Signs Nursing Vital Signs: Initial Vital Signs Temperature 98.2 F Temperature Source Oral Pulse Rate 103 Respiratory Rate 18 Blood Pressure [] 158/87 Pain Intensity 0 - Physical Exam General Appearance: alert Eye Exam: PERRL/EOMI Ears, Nose, Throat Exam: moist mucous membranes Neck Exam: supple Respiratory Exam: wheezing Cardiovascular Exam: regular rate/rhythm Gastrointestinal/Abdomen Exam: soft, No tenderness, No distention Extremity Exam: other (wound vac left hip-looks good. Some serous drng from left diabetic foot wound but not red. Some swelling is chronic appearing.) Neurologic Exam: alert, 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, cooperative, No motor deficits Skin Exam: warm, dry, pale SpO2 Interpretation: normal SpO2: 96 Oxygen Delivery: Room Air - Course Nursing assessment & vital signs reviewed: Yes EKG Interpreted by Me: RATE (100), Sinus Rhythm, NORMAL AXIS, NORMAL INTERVALS, NORMAL QRS, NORMAL ST-T - Radiology Exams cxr X-ray Interpretation: Reviewed by me (some congestion, mild RLL infitrate not much changed from prior) Ordered Tests: Active Orders 24 hr Category Date Time Status Accucheck STAT Care 01/22/17 15:03 Active It Web Development Consultant STAT Care 01/22/17 13:13 Active Cath for Specimen-Straight STAT Care 01/22/17 13:22 Active EKG-ER Only STAT Care 01/22/17 13:22 Active IV Insertion STAT Care 01/22/17 13:13 Active CHEST 1 VIEW (PORTABLE) Stat Exams 01/22/17 13:23 Taken CBC W DIFF Stat Lab 01/22/17 13:15 Completed CMP Stat Lab 01/22/17 13:15 Completed CULTURE,URINE Stat Lab 01/22/17 14:15 Received Lactic Acid Stat Lab 01/22/17 13:22 Completed Manual Differential NC Stat Lab 01/22/17 13:15 Completed NT PRO BNP Stat Lab 01/22/17 13:15 Completed UA W/ MICROSCOPIC Stat Lab 01/22/17 14:15 Completed Respiratory Nebulizer STAT RT 01/22/17 13:23 Completed Medication Summary Generic Name Dose Route Start Last Admin Trade Name Freq PRN Reason Stop Dose Admin Sodium Chloride 1,000 mls @ 100 mls/hr 01/22/17 13:30 01/22/17 13:43 Sodium Chloride 0.9% 1000 Ml IV 02/21/17 13:29 100 mls/hr .Q10H TISHA Administration Discontinued Medications Generic Name Dose Route Start Last Admin Trade Name Freq PRN Reason Stop Dose Admin Albuterol/Ipratropium 3 ml 01/22/17 13:23 01/22/17 13:38 Duoneb 0.5-3 Mg/3 Ml Neb IH 01/22/17 13:24 3 ml STAT ONE Administration Albuterol/Ipratropium Confirm 05/21/17 13:29 Duoneb 0.5-3 Mg/3 Ml Neb Administered 01/22/17 13:30 Dose 3 ml IH .STK-MED ONE Furosemide 40 mg 01/22/17 15:03 01/22/17 15:12 Lasix 40 Mg/4 Ml IV 01/22/17 15:04 40 mg STAT ONE Administration Furosemide Confirm 01/22/17 15:11 Lasix 40 Mg/4 Ml Administered 01/22/17 15:12 Dose 40 mg .ROUTE .STK-MED ONE Insulin Aspart 5 unit 01/22/17 15:03 01/22/17 15:28 Novolog Insulin SQ 01/22/17 15:04 5 unit STAT ONE Administration Insulin Aspart Confirm 01/22/17 15:11 Novolog Insulin Administered 01/22/17 15:12 Dose 5 unit .ROUTE .STK-MED ONE Lab/Rad Data: Laboratory Result Diagrams 01/22/17 13:15 01/22/17 13:15 Laboratory Results 01/22/17 01/22/17 01/22/17 Range/Units 14:15 13:22 13:15 WBC (4.0-10.5) K/mm3 RBC (4.1-5.4) M/mm3 Hgb (12.0-16.0) gm/dl Hct (35-47) % MCV (78-100) fl MCH (26-32) pg MCHC (32-36) g/dl RDW (11.5-14.0) % Plt Count (150-450) K/mm3 MPV (6-9.5) fl Segmented Neutrophils (36.0-66.0) % Lymphocytes (Manual) (24-44) % Monocytes (Manual) (0.0-12.0) % Eosinophils (Manual) (0.00-3.0) % Differential Comment Platelet Estimate (NORMAL) Sodium (136-145) mEq/L Potassium (3.5-5.1) mEq/L Chloride (98-107) mEq/L Carbon Dioxide (21-32) mEq/L Anion Gap (5-15) MEQ/L BUN (9-20) mg/dL Creatinine (0.55-1.30) mg/dl Estimated GFR ML/MIN Glucose (70-110) MG/DL Lactic Acid 1.3 (0.4-2.0) Calcium (8.5-10.1) mg/dL Total Bilirubin (0.2-1.0) mg/dL AST (15-37) U/L ALT (12-78) U/L Alkaline Phosphatase (46-116) U/L NT-Pro-B Natriuret Pep 376 H (0-125) pg/ml Serum Total Protein (6.4-8.2) gm/dL Albumin (3.4-5.0) g/dL Ur Collection Type CATH Urine Color YELLOW (YELLOW) Urine Appearance CLEAR (CLEAR) Urine pH 6.0 (5-6) Ur Specific Ransom 1.025 (1.005-1.025) Urine Protein >=300 (Negative) Urine Glucose (UA) 100 (NEGATIVE) mg/dL Urine Ketones NEGATIVE (NEGATIVE) Urine Nitrite NEGATIVE (NEGATIVE) Urine Bilirubin NEGATIVE (NEGATIVE) Urine Urobilinogen 0.2 (0-1) mg/dL Urine WBC (Auto) NEGATIVE (NEGATIVE) Urine RBC (Auto) SMALL (0-5) Ubaldo/ul Urine Microscopic RBC 2-5 (0-2) /HPF Urine Microscopic WBC 5-10 (0-5) /HPF Ur Epithelial Cells MODERATE (FEW) /HPF Amorphous Crystals FEW (NEGATIVE) /HPF Urine Bacteria FEW (NEGATIVE) /HPF Hyaline Casts 0-2 (0-2) /LPF Specimen Received 01/22/17 1415 01/22/17 01/22/17 Range/Units 13:15 13:15 WBC 8.0 (4.0-10.5) K/mm3 RBC 3.76 L (4.1-5.4) M/mm3 Hgb 8.1 L (12.0-16.0) gm/dl Hct 27.2 L (35-47) % MCV 72.3 L (78-100) fl MCH 21.5 L (26-32) pg MCHC 29.8 L (32-36) g/dl RDW 19.0 H (11.5-14.0) % Plt Count 235 (150-450) K/mm3 MPV 10.0 H (6-9.5) fl Segmented Neutrophils 79 H (36.0-66.0) % Lymphocytes (Manual) 16 L (24-44) % Monocytes (Manual) 4 (0.0-12.0) % Eosinophils (Manual) 1 (0.00-3.0) % Differential Comment NORMAL Platelet Estimate NORMAL (NORMAL) Sodium 132 L (136-145) mEq/L Potassium 3.9 (3.5-5.1) mEq/L Chloride 101 (98-107) mEq/L Carbon Dioxide 22.1 (21-32) mEq/L Anion Gap 12.4 (5-15) MEQ/L BUN 13 (9-20) mg/dL Creatinine 1.23 (0.55-1.30) mg/dl Estimated GFR 49 ML/MIN Glucose 287 H (70-110) MG/DL Lactic Acid (0.4-2.0) Calcium 8.5 (8.5-10.1) mg/dL Total Bilirubin 0.3 (0.2-1.0) mg/dL AST 52 H (15-37) U/L ALT 30 (12-78) U/L Alkaline Phosphatase 250 H (46-116) U/L NT-Pro-B Natriuret Pep (0-125) pg/ml Serum Total Protein 7.5 (6.4-8.2) gm/dL Albumin 1.8 L (3.4-5.0) g/dL Ur Collection Type Urine Color (YELLOW) Urine Appearance (CLEAR) Urine pH (5-6) Ur Specific Ransom (1.005-1.025) Urine Protein (Negative) Urine Glucose (UA) (NEGATIVE) mg/dL Urine Ketones (NEGATIVE) Urine Nitrite (NEGATIVE) Urine Bilirubin (NEGATIVE) Urine Urobilinogen (0-1) mg/dL Urine WBC (Auto) (NEGATIVE) Urine RBC (Auto) (0-5) Ubaldo/ul Urine Microscopic RBC (0-2) /HPF Urine Microscopic WBC (0-5) /HPF Ur Epithelial Cells (FEW) /HPF Amorphous Crystals (NEGATIVE) /HPF Urine Bacteria (NEGATIVE) /HPF Hyaline Casts (0-2) /LPF Specimen Received - Progress Progress Note: 01/22/17 16:18 She is feeling better. No fever or WBC elevation. Lasix and insulin given. She feels good enough to go home. Will follow up with Dr Bower. Will use her nebs every 4 hours. Nothing to suggest venous thromboembolic disease. Counseled pt/family regarding: lab results, diagnosis, need for follow-up - Departure Time of Disposition: 16:19 Departure Disposition: Home Clinical Impression: Shortness of breath, Uncontrolled diabetes mellitus Condition: Stable Critical Care Time: No Referrals: ROSELIA BOWER [Primary Care Provider] - Instructions: Shortness of Breath Additional Instructions: Use your nebulizers every [address] Bower this week. Return for problems or concerns.
[2017-01-22 14:03] LABS: ALBUMIN 1.8 g/dL (3.4-5.0); ANION GAP 12.4 MEQ/L (5-15); BILIRUBIN,TOTAL 0.3 mg/dL (0.2-1.0); Carbon Dioxide 22.1 mEq/L (21-32); Potassium 3.9 mEq/L (3.5-5.1); Total Protein 7.5 gm/dL (6.4-8.2)
[2017-01-22 14:27] LABS: Eosinophil 1 % (0.00-3.0); Total Cells Counted 100
[2017-01-22 14:28] LABS: Platelet Estimate NORMAL (NORMAL)
[2017-01-22 14:35] LABS: Collection Type CATH
[2017-01-22 14:41] LABS: COMPLETE URINE MICROSCOPIC? YES
[2017-01-22 14:50] LABS: Bacteria FEW /HPF (NEGATIVE); Epithelial Cells MODERATE /HPF (FEW); Hyaline Casts 0-2 /LPF (0-2)
[2017-01-22] MEDS ORDERED: Lasix 40 MG/4 ML IV ONE (15:03)
[2017-01-22] MEDS ORDERED: NovoLOG Insulin SQ ONE (15:03)
[2017-01-22] MEDS ORDERED: NovoLOG Insulin ONE (15:11)
[2017-01-22] MEDS ORDERED: Lasix 40 MG/4 ML ONE (15:11)
[2017-01-22 16:22] VITALS: BP 159/83; PULSE 92; O2SAT 97
--- NOTE | 2017-01-22 20:58 | XRAY ---
Indication: Cough. Comparison: November 13, 2016. Portable chest demonstrates interval left lung clearing with small residual right base infiltrate/atelectasis. Heart is not enlarged for AP portable technique. New left-sided PICC line with tip projecting over the SVC.
== END 2017-01-22 16:37 | disposition home or self-care (01) ==
LOC: ED 12:47
DX: R06.02 Shortness of breath (principal); E11.65 Type 2 diabetes mellitus with hyperglycemia; I10 Essential (primary) hypertension; J44.9 Chronic obstructive pulmonary disease, unspecified; Z87.01 Personal history of pneumonia (recurrent); R05 Cough; R06.00 Dyspnea, unspecified
CPT/HCPCS: 93041; 96372; 96374; 36591; 99284; 82962; 96360; 96361; 93005; 81000; 36415; 83880; 85025; 80053; 87086; 71010; 94640; 83605; P9612; J1940; A9270-GY

== ENCOUNTER 2017-01-27 15:21 | Emergency (ER) | payer MEDICARE ==
--- NOTE | 2017-01-27 16:26 | ERPHSYRPT ---
- History of Present Illness Time Seen by Provider: 01/27/17 16:20 Historian: patient Exam Limitations: no limitations Patient Subjective Stated Complaint: Pt c/o abdominal pain for last 2 weeks but it has gotten really bad today. She has had severe nausea and vomited 5 times today. She also c/o diarrhea for 1 week. Denies any fever Triage Nursing Assessment: Pt alert and oriented x3. skin pink warm and dry. afebrile. pt dry heaving upon arrival. bowel sounds hypoactive x4. abdomen round, firm, and tender with palpation Physician History: The patient is a 51-year-old female complains of increasing abdominal pain for 2 weeks. She has vomited 5 times today. She's had diarrhea as well. She was recently treated with IV antibiotics which were discontinued January 13 for left foot cellulitis. Her past medical history is significant for left foot cellulitis, hypertension, COPD, diabetes, and depression. Timing/Duration: week(s) (2) Activities at Onset: none Quality: sharpness Abdominal Pain Onset Location: generalized abdomen Severity of Pain-Max: moderate Severity of Pain-Current: moderate Modifying Factors: Improves With: nothing Associated Symptoms: diarrhea, nausea, vomiting Previous symptoms: no prior history Allergies/Adverse Reactions: Adhesive Bandage *RETIRED-12/26/12 [Adhesive Bandage] Allergy (Mild, Verified 15:41) "silk tape" bee stings Allergy (Mild, Uncoded 01/22/17 13:08) Home Medications: Aspirin 81 gm Chew [Baby Aspirin 81 mg Chew] 81 mg PO DAILY 11/17/12 [ History] Duloxetine HCl 30 mg [Cymbalta 30 MG Capsule] 60 mg PO HS 11/17/12 [ History] Multivitamin [Multivitamins] 1 each PO DAILY 11/17/12 [History] Albuterol Sulfate [Proair Hfa] 2 puff IH Q3H/PRN PRN 04/21/15 [History] Budesonide/Formoterol Fumarate [Symbicort 160-4.5 Mcg Inhaler] 2 puff IH BID [History] Omeprazole 20 MG [Prilosec 20 mg] 20 mg PO DAILY 04/21/15 [History] Pravastatin Sodium [Pravachol] 10 mg PO DAILY 02/07/16 [History] Furosemide 40 mg [Lasix 40 MG] 40 mg PO DAILY 11/11/16 [History] Gabapentin [Gralise] 1,800 mg PO EVENING MEAL 11/11/16 [History] Lisinopril 10 mg [Zestril 10 MG] 10 mg PO DAILY 11/11/16 [History] Loratadine 10 mg [Claritin 10 mg] 10 mg PO DAILY 11/11/16 [History] Insulin Aspart [Novolog Flexpen] 0 unit SQ AC 01/22/17 [History] Insulin Glargine,Hum.rec.anlog [Lantus Solostar] 50 unit SQ HS 01/27/17 [History ] Magnesium Oxide 400 mg [Mag-Ox 400] 800 mg PO BID 01/27/17 [History] Hx Tetanus, Diphtheria Vaccination/Date Given: Yes (up to date) Hx Influenza Vaccination/Date Given: No Hx Pneumococcal Vaccination/Date Given: No - Review of Systems Constitutional: No Fever, No Chills Eyes: No Symptoms Ears, Nose, & Throat: No Symptoms Respiratory: Wheezing, No Cough, No Dyspnea Cardiac: No Chest Pain, No Edema, No Syncope Abdominal/Gastrointestinal: Abdominal Pain, Nausea, Vomiting, Diarrhea Genitourinary Symptoms: No Dysuria Musculoskeletal: No Back Pain, No Neck Pain Skin: No Rash Neurological: No Dizziness, No Focal Weakness, No Sensory Changes Psychological: No Symptoms Hematologic/Lymphatic: No Symptoms Immunological/Allergic: No Symptoms All Other Systems: Reviewed and Negative - Past Medical History Pertinent Past Medical History: Yes Neurological History: No Pertinent History ENT History: No Pertinent History Cardiac History: Hypertension Respiratory History: Asthma, COPD, Pneumonia Endocrine Medical History: Diabetes Type II Musculoskeletal History: Fractures GI Medical History: GERD History: No Pertinent History Psycho-Social History: Anxiety, Depression Female Reproductive Disorders: No Pertinent History Other Medical History: left ankle fracture. wound vac left hip. wound center left foot - Past Surgical History Past Surgical History: Yes Neuro Surgical History: No Pertinent History Cardiac: No Pertinent History Respiratory: No Pertinent History Gastrointestinal: Cholecystectomy, Exploratory Laparoscopy Genitourinary: No Pertinent History Musculoskeletal: No Pertinent History Female Surgical History: Section, Hysterectomy Other Surgical History: foot surgery, screw placed in left big toe, removal, and antibiotic beed placement - Social History Smoking Status: Current every day smoker How long have you smoked: 34 Exposure to second hand smoke: Yes Drug Use: none Patient Lives Alone: No - Female History Hx Last Menstrual Period: n/a Hx Now: No - Nursing Vital Signs Nursing Vital Signs: Initial Vital Signs Temperature 98.1 F Temperature Source Oral Pulse Rate 98 Respiratory Rate 18 Blood Pressure [Right Arm] 175/80 Pain Intensity 10 - Physical Exam General Appearance: moderate distress Eye Exam: PERRL/EOMI, eyes nml inspection Ears, Nose, Throat Exam: normal ENT inspection, pharynx normal, moist mucous membranes Neck Exam: normal inspection, non-tender, supple, full range of motion Respiratory Exam: diminished breath sounds, wheezing Cardiovascular Exam: regular rate/rhythm, normal heart sounds Gastrointestinal/Abdomen Exam: tenderness (generalized), other (hypoactive BS) Pelvic Exam: not done Rectal Exam: not done Back Exam: normal inspection, normal range of motion, No CVA tenderness, No vertebral tenderness Extremity Exam: other (Evaluation of the left lower leg and foot reveals swelling and redness.) Neurologic Exam: alert, 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, cooperative, normal mood/affect, nml cerebellar function, sensation nml, No motor deficits Skin Exam: normal color, warm, dry SpO2 Interpretation: normal SpO2: 100 Oxygen Delivery: Room Air Ordered Tests: Active Orders 24 hr Category Date Time Status IV Insertion STAT Care 01/27/17 16:33 Active cath [Cath for Specimen-Straight] STAT Care 01/27/17 17:51 Active ABDOMEN AND PELVIS W/0 CONTRAS [CT] Stat Exams 01/27/17 16:33 Taken CBC W DIFF Stat Lab 01/27/17 17:30 Completed CMP Stat Lab 01/27/17 17:30 Completed LIPASE Stat Lab 01/27/17 17:30 Completed Lactic Acid Stat Lab 01/27/17 17:41 Completed Manual Differential NC Stat Lab 01/27/17 17:30 Completed TROPONIN Stat Lab 01/27/17 17:30 Completed UA W/RFX UR CULTURE Stat Lab 01/27/17 16:32 Ordered Medication Summary Discontinued Medications Generic Name Dose Route Start Last Admin Trade Name Freq PRN Reason Stop Dose Admin Sodium Chloride 1,000 mls @ 999 mls/hr 01/27/17 16:33 01/27/17 17:00 Sodium Chloride 0.9% 1000 Ml IV 01/27/17 17:33 999 mls/hr .Q1H1M STA Administration Sodium Chloride Confirm 01/27/17 16:58 Sodium Chloride 0.9% 1000 Ml Administered 01/27/17 16:59 Dose 1,000 mls @ ud .ROUTE .STK-MED ONE Ondansetron HCl 4 mg 01/27/17 16:33 01/27/17 17:00 Zofran 4 Mg/2 Ml Vial IV 01/27/17 16:34 4 mg STAT ONE Administration Ondansetron HCl Confirm 01/27/17 16:58 Zofran 4 Mg/2 Ml Vial Administered 01/27/17 16:59 Dose 4 mg .ROUTE .STK-MED ONE Lab/Rad Data: Laboratory Result Diagrams 01/27/17 17:30 01/27/17 17:30 Laboratory Results 01/27/17 01/27/17 01/27/17 Range/Units 17:41 17:30 17:30 WBC 7.9 (4.0-10.5) K/mm3 RBC 3.70 L (4.1-5.4) M/mm3 Hgb 7.9 L (12.0-16.0) gm/dl Hct 26.5 L (35-47) % MCV 71.6 L (78-100) fl MCH 21.3 L (26-32) pg MCHC 29.8 L (32-36) g/dl RDW 18.9 H (11.5-14.0) % Plt Count 204 (150-450) K/mm3 MPV 11.1 H (6-9.5) fl Sodium 131 L (136-145) mEq/L Potassium 3.6 (3.5-5.1) mEq/L Chloride 99 (98-107) mEq/L Carbon Dioxide 23.6 (21-32) mEq/L Anion Gap 12.2 (5-15) MEQ/L BUN 11 (9-20) mg/dL Creatinine 1.17 (0.55-1.30) mg/dl Estimated GFR 52 ML/MIN Glucose 272 H (70-110) MG/DL Lactic Acid 1.4 (0.4-2.0) Calcium 8.4 L (8.5-10.1) mg/dL Total Bilirubin 0.30 (0.2-1.0) mg/dL AST 68 H (15-37) U/L ALT 40 (12-78) U/L Alkaline Phosphatase 256 H (46-116) U/L Ammonia (11-32) MMOL/l Troponin I < 0.017 (0.000-0.056) ng/ml Serum Total Protein 7.5 (6.4-8.2) gm/dL Albumin 1.9 L (3.4-5.0) g/dL Lipase 127 (73-393) U/L / Range/Units 13:00 WBC (4.0-10.5) K/mm3 RBC (4.1-5.4) M/mm3 Hgb (12.0-16.0) gm/dl Hct (35-47) % MCV (78-100) fl MCH (26-32) pg MCHC (32-36) g/dl RDW (11.5-14.0) % Plt Count (150-450) K/mm3 MPV (6-9.5) fl Sodium (136-145) mEq/L Potassium (3.5-5.1) mEq/L Chloride (98-107) mEq/L Carbon Dioxide (21-32) mEq/L Anion Gap (5-15) MEQ/L BUN (9-20) mg/dL Creatinine (0.55-1.30) mg/dl Estimated GFR ML/MIN Glucose (70-110) MG/DL Lactic Acid (0.4-2.0) Calcium (8.5-10.1) mg/dL Total Bilirubin (0.2-1.0) mg/dL AST (15-37) U/L ALT (12-78) U/L Alkaline Phosphatase (46-116) U/L Ammonia 30 (11-32) MMOL/l Troponin I (0.000-0.056) ng/ml Serum Total Protein (6.4-8.2) gm/dL Albumin (3.4-5.0) g/dL Lipase (73-393) U/L - Progress Progress: unchanged Counseled pt/family regarding: lab results, diagnosis, rad results - Departure Time of Disposition: 19:54 Departure Disposition: Transfer (The patient to be transferred to [facility] per GI liver specialist Dr. iMshra.) Clinical Impression: Cirrhosis, Ascites, Abdominal pain Condition: Stable Critical Care Time: No
[2017-01-27] MEDS ORDERED: Zofran 4 MG/2 ML VIAL IV ONE (16:33)
[2017-01-27] MEDS ORDERED: Sodium Chloride 0.9% 1000 ML 1,000 ML IV STA (16:33)
[2017-01-27] MEDS ORDERED: Sodium Chloride 0.9% 1000 ML 1,000 ML ONE ×2 (16:58→20:18)
[2017-01-27] MEDS ORDERED: Zofran 4 MG/2 ML VIAL ONE (16:58)
[2017-01-27 17:58] LABS: Mean Cell Volume 71.6 fl (78-100); Mean Platelet Volume 11.1 fl (6-9.5); Platelet Count 204 K/mm3 (150-450); Red Cell Distribution Width 18.9 % (11.5-14.0); White Blood Count 7.9 K/mm3 (4.0-10.5)
[2017-01-27 17:59] LABS: Mean Corpuscular Hemoglobin 21.3 pg (26-32)
[2017-01-27 18:27] LABS: ALBUMIN 1.9 g/dL (3.4-5.0); ALKALINE PHOSPHATASE 256 U/L (46-116); ANION GAP 12.2 MEQ/L (5-15); BLOOD UREA NITROGEN 11 mg/dL (9-20); CHLORIDE 99 mEq/L (98-107); Carbon Dioxide 23.6 mEq/L (21-32); Glucose 272 MG/DL (70-110); LIPASE 127 U/L (73-393); Potassium 3.6 mEq/L (3.5-5.1); SGOT/AST 68 U/L (15-37); SGPT/ALT 40 U/L (12-78); SODIUM 131 mEq/L (136-145); TROPONIN < 0.017 ng/ml (0.000-0.056); Total Protein 7.5 gm/dL (6.4-8.2)
[2017-01-27] MEDS ORDERED: ROCEPHIN 1 Gm-D5w 50 ml Bag** 1 G/50 ML IVPB IV ONE ×2 (19:57→20:19)
[2017-01-27] MEDS ORDERED: Sodium Chloride 0.9% 1000 ML 1,000 ML IV SCH (20:30)
[2017-01-27 20:32] LABS: ADD URINE CULTURE? YES (NO); Bacteria FEW /HPF (NEGATIVE); COMPLETE URINE MICROSCOPIC? YES; Collection Type CATH; Epithelial Cells RARE /HPF (FEW)
--- NOTE | 2017-01-27 21:58 | XRAY ---
Indication: Central abdominal pain and vomiting. Multiple contiguous axial images obtained through the abdomen and pelvis without contrast as ordered. Comparison: None Lung bases demonstrates diffuse bilateral interstitial alveolar opacities. No consolidation or effusion. Heart is not enlarged. Cirrhotic appearing liver with large amount of abdominal and pelvic ascites. No free air. Spleen is enlarged measuring 14.5 cm. Noncontrasted stomach and bowel loops appear nonobstructed. Previous cholecystectomy and hysterectomy. Urinary bladder is nominally distended with circumferential wall thickening either incomplete distention versus cystitis. Remaining pancreas, adrenal glands, kidneys, and ureters are unremarkable for noncontrast exam. Mild aortoiliac calcifications without aneurysm. Osseous structures intact with minimal degenerative changes throughout the spine. Lower abdominal wall demonstrates marked cutaneous/subcutaneous induration. Impression: 1. Cirrhotic liver with large amount of abdominal/pelvic ascites. 2. Splenomegaly. 3. Urinary bladder wall thickening either incomplete distention versus cystitis. 4. Lung bases demonstrates diffuse bilateral interstitial alveolar opacities. Comment: Preliminary interpretation was made by [facility]. No critical discrepancy. CTDI 23.24
[2017-01-27 22:36] LABS: Eosinophil 1 % (0.00-3.0); Total Cells Counted 100
[2017-01-27 22:37] LABS: Platelet Estimate NORMAL (NORMAL)
[2017-01-27 22:39] LABS: Hypochromia 2+
[2017-01-27 22:40] LABS: ANISOCYTOSIS 1+
[2017-01-28 03:48] VITALS: BP 130/70; PULSE 94; O2SAT 94
== END 2017-01-28 04:26 | disposition short-term general hospital (02) ==
LOC: ED 15:21
DX: K74.60 Unspecified cirrhosis of liver (principal); R18.8 Other ascites; R10.9 Unspecified abdominal pain; R11.2 Nausea with vomiting, unspecified; I10 Essential (primary) hypertension; J44.9 Chronic obstructive pulmonary disease, unspecified; E11.9 Type 2 diabetes mellitus without complications; F32.9 Major depressive disorder, single episode, unspecified; Z79.899 Other long term (current) drug therapy; Z79.4 Long term (current) use of insulin
CPT/HCPCS: 96374; 96365; 99285; 51702; 96360; 96361; 81000; 36415; 83690; 82140; 85025; 80053; 84484; 87086; 74176; 83605; P9612; J0696; J2405

== ENCOUNTER 2017-03-03 21:38 | Emergency (ER) | payer MEDICARE ==
[2017-03-03] MEDS ORDERED: Rocephin 1000 MG INJ IM STA (22:11)
[2017-03-03] MEDS ORDERED: Sodium Chloride 0.9% 1000 ML 1,000 ML IV STA (22:11)
--- NOTE | 2017-03-03 22:23 | ERPHSYRPT ---
- History of Present Illness Time Seen by Provider: 03/03/17 22:21 Source: patient Exam Limitations: no limitations Patient Subjective Stated Complaint: pt states she began having increased pain in her lt foot and pain in her calf. states she noticed redness and increased swelling today. states she is nwb on that leg per her wound care Triage Nursing Assessment: pt alert and oriented, answers questions approp. respirations nonlabored with lungs cta. edema, redness, warmth noted to lt leg. drsg to lt foot with kerlix and coban. unable to assess pedal pulse. Physician History: pt states she began having increased pain in her lt foot and pain in her calf. states she noticed redness and increased swelling today. states she is non weight bearing on that leg per her wound care drJace Patient diabetic and has chronic wound of left foot Modifying Factors: Improves With: nothing Allergies/Adverse Reactions: Adhesive Bandage *RETIRED-12/26/12 [Adhesive Bandage] Allergy (Mild, Verified 22:04) "silk tape" bee stings Allergy (Mild, Uncoded 03/03/17 22:04) Home Medications: Aspirin 81 gm Chew [Baby Aspirin 81 mg Chew] 81 mg PO DAILY 11/17/12 [ History] Duloxetine HCl 30 mg [Cymbalta 30 MG Capsule] 60 mg PO HS 11/17/12 [ History] Multivitamin [Multivitamins] 1 each PO DAILY 11/17/12 [History] Albuterol Sulfate [Proair Hfa] 2 puff IH Q3H/PRN PRN 04/21/15 [History] Budesonide/Formoterol Fumarate [Symbicort 160-4.5 Mcg Inhaler] 2 puff IH BID [History] Omeprazole 20 MG [Prilosec 20 mg] 20 mg PO DAILY 04/21/15 [History] Pravastatin Sodium [Pravachol] 10 mg PO DAILY 02/07/16 [History] Furosemide 40 mg [Lasix 40 MG] 40 mg PO DAILY 11/11/16 [History] Gabapentin [Gralise] 1,800 mg PO EVENING MEAL 11/11/16 [History] Loratadine 10 mg [Claritin 10 mg] 10 mg PO DAILY 11/11/16 [History] Insulin Aspart [Novolog Flexpen] 0 unit SQ AC 01/22/17 [History] Insulin Glargine,Hum.rec.anlog [Lantus Solostar] 50 unit SQ HS 01/27/17 [History ] Magnesium Oxide 400 mg [Mag-Ox 400] 800 mg PO BID 01/27/17 [History] Hx Tetanus, Diphtheria Vaccination/Date Given: Yes (up to date) Hx Influenza Vaccination/Date Given: No Hx Pneumococcal Vaccination/Date Given: No Immunizations Up to Date: Yes - Review of Systems Constitutional: Lethargy, Malaise, Weakness, No Fever, No Chills Eyes: No Symptoms Ears, Nose, & Throat: No Symptoms Respiratory: No Cough, No Dyspnea Cardiac: No Chest Pain, No Edema, No Syncope Abdominal/Gastrointestinal: No Abdominal Pain, No Nausea, No Vomiting, No Diarrhea Genitourinary Symptoms: No Dysuria Musculoskeletal: No Back Pain, No Neck Pain Skin: Other (diabetic woung kim stage 2 on planter surface of left foot), No Rash Neurological: No Dizziness, No Focal Weakness, No Sensory Changes Psychological: No Symptoms Endocrine: No Symptoms All Other Systems: Reviewed and Negative - Past Medical History Pertinent Past Medical History: Yes Neurological History: No Pertinent History ENT History: No Pertinent History Cardiac History: Hypertension Respiratory History: Asthma, COPD, Pneumonia Endocrine Medical History: Diabetes Type II Musculoskeletal History: Fractures GI Medical History: GERD History: No Pertinent History Psycho-Social History: Anxiety, Depression Female Reproductive Disorders: No Pertinent History Other Medical History: left ankle fx with mult surgeries. wound center left foot - Past Surgical History Past Surgical History: Yes Neuro Surgical History: No Pertinent History Cardiac: No Pertinent History Respiratory: No Pertinent History Gastrointestinal: Cholecystectomy, Exploratory Laparoscopy Genitourinary: No Pertinent History Musculoskeletal: No Pertinent History Female Surgical History: Section, Hysterectomy Other Surgical History: foot surgery, screw placed in left big toe, removal, and antibiotic beed placement. mult lt foot surgeries - Social History Smoking Status: Current every day smoker How long have you smoked: 34 Exposure to second hand smoke: Yes Drug Use: none Patient Lives Alone: No - Female History Hx Last Menstrual Period: hyster Hx Now: No - Nursing Vital Signs Nursing Vital Signs: Initial Vital Signs Temperature 99.4 F Temperature Source Oral Pulse Rate 115 Respiratory Rate 16 Blood Pressure [Right Arm] 133/62 Pain Intensity 10 - Physical Exam General Appearance: alert Eyes, Ears, Nose, Throat Exam: moist mucous membranes Neck Exam: non-tender, supple Cardiovascular/Respiratory Exam: chest non-tender, normal breath sounds, regular rate/rhythm, no respiratory distress Gastrointestinal/Abdominal Exam: non-tender, guarding Back Exam: normal inspection, No vertebral tenderness Foot Exam: left foot: infection, soft tissue tenderness, swelling Neuro/Tendon Exam: normal sensation, normal motor functions Mental Status Exam: alert, 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, cooperative Skin Exam: normal color, warm, dry SpO2: 97 Oxygen Delivery: Room Air - Course Nursing assessment & vital signs reviewed: Yes Ordered Tests: Active Orders 24 hr Category Date Time Status BLOOD CULTURE Stat Lab 03/03/17 22:39 Ordered CBC W DIFF Stat Lab 03/03/17 22:30 Completed CMP Stat Lab 03/03/17 22:30 Completed CULTURE,WOUND Stat Lab 03/03/17 22:11 Ordered Lactic Acid Stat Lab 03/03/17 22:11 Completed UA W/RFX UR CULTURE Stat Lab 03/03/17 22:11 Ordered Medication Summary Generic Name Dose Route Start Last Admin Trade Name Freq PRN Reason Stop Dose Admin Ceftriaxone Sodium mg 03/03/17 22:11 Rocephin 1000 Mg Inj IM 03/03/17 22:12 STAT STA Sodium Chloride 1,000 mls @ 999 mls/hr 03/03/17 22:11 03/03/17 22:31 Sodium Chloride 0.9% 1000 Ml IV 03/03/17 23:11 999 mls/hr .Q1H1M STA Administration Discontinued Medications Generic Name Dose Route Start Last Admin Trade Name Freq PRN Reason Stop Dose Admin Sodium Chloride Confirm 03/03/17 22:24 Sodium Chloride 0.9% 1000 Ml Administered 03/03/17 22:25 Dose 1,000 mls @ ud .ROUTE .STK-MED ONE Ceftriaxone Sodium/Dextrose Confirm 03/03/17 22:51 Rocephin 1 Gm-D5w 50 Ml Bag Administered 03/03/17 22:52 Dose 1 g in 50 mls @ ud IV .STK-MED ONE Lab/Rad Data: Laboratory Result Diagrams 03/03/17 22:30 03/03/17 22:30 Laboratory Results 03/03/17 03/03/17 03/03/17 Range/Units 22:30 22:30 22:11 WBC 11.7 H (4.0-10.5) K/mm3 RBC 3.49 L (4.1-5.4) M/mm3 Hgb 7.9 L (12.0-16.0) gm/dl Hct 25.5 L (35-47) % MCV 73.1 L (78-100) fl MCH 22.6 L (26-32) pg MCHC 31.0 L (32-36) g/dl RDW 21.0 H (11.5-14.0) % Plt Count 252 (150-450) K/mm3 MPV 10.3 H (6-9.5) fl Gran % 80.5 H (36.0-66.0) % Lymphocytes % 12.5 L (24.0-44.0) % Monocytes % 5.6 (0.0-12.0) % Eosinophils % 1.2 (0.00-5.0) % Basophils % 0.2 (0.0-0.4) % Basophils # 0.02 (0-0.4) Sodium 130 L (136-145) mEq/L Potassium 4.3 (3.5-5.1) mEq/L Chloride 97 L (98-107) mEq/L Carbon Dioxide 22.8 (21-32) mEq/L Anion Gap 14.4 (5-15) MEQ/L BUN 18 (9-20) mg/dL Creatinine 1.39 H (0.55-1.30) mg/dl Estimated GFR 43 ML/MIN Glucose 360 H (70-110) MG/DL Lactic Acid 1.3 (0.4-2.0) Calcium 8.3 L (8.5-10.1) mg/dL Total Bilirubin 0.20 (0.2-1.0) mg/dL AST 38 H (15-37) U/L ALT 24 (12-78) U/L Alkaline Phosphatase 293 H (46-116) U/L Serum Total Protein 7.5 (6.4-8.2) gm/dL Albumin 1.7 L (3.4-5.0) g/dL - Progress Progress: unchanged Counseled pt/family regarding: lab results, diagnosis, need for follow-up - Departure Time of Disposition: 22:53 Departure Disposition: Home Clinical Impression: Wound, open, foot with complication Qualifiers: Encounter type: sequela Laterality: left Qualified Code(s): S91.302S - Unspecified open wound, left foot, sequela Diabetes mellitus type 2, uncontrolled Qualifiers: Diabetes mellitus complication status: with skin complications Diabetes mellitus complication detail: with foot ulcer 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 Please take your medication as prescribed if given. If symptoms recur or get worse, come back to the emergency room if you cannot reach your primary care physician, or call your primary care physician for an appointment. Again if your symptoms get worse, come back to the emergency room. Thanks for visiting emergency room, and let us take care of you.
[2017-03-03] MEDS ORDERED: Sodium Chloride 0.9% 1000 ML 1,000 ML ONE (22:24)
[2017-03-03 22:42] LABS: BASOPHIL % 0.2 % (0.0-0.4); Eosinophil % 1.2 % (0.00-5.0); Granulocytes % 80.5 % (36.0-66.0); Lymphocytes % 12.5 % (24.0-44.0); Mean Cell Volume 73.1 fl (78-100); Mean Corpuscular Hemoglobin 22.6 pg (26-32); Mean Platelet Volume 10.3 fl (6-9.5); Monocytes % 5.6 % (0.0-12.0); Platelet Count 252 K/mm3 (150-450); Red Blood Count 3.49 M/mm3 (4.1-5.4); White Blood Count 11.7 K/mm3 (4.0-10.5)
[2017-03-03] MEDS ORDERED: ROCEPHIN 1 Gm-D5w 50 ml Bag** 1 G/50 ML IVPB IV ONE (22:51)
[2017-03-03 23:01] LABS: ALBUMIN 1.7 g/dL (3.4-5.0); ANION GAP 14.4 MEQ/L (5-15); BILIRUBIN,TOTAL 0.2 mg/dL (0.2-1.0); Carbon Dioxide 22.8 mEq/L (21-32); Potassium 4.3 mEq/L (3.5-5.1); Total Protein 7.5 gm/dL (6.4-8.2)
[2017-03-03 23:05] VITALS: BP 133/62; PULSE 115
[2017-03-03 23:07] VITALS: O2SAT 97
[2017-03-04] MEDS ORDERED: ROCEPHIN 1 Gm-D5w 50 ml Bag** 1 G/50 ML IVPB IV STA (05:37)
== END 2017-03-03 23:42 | disposition home or self-care (01) ==
LOC: ED 21:38
DX: S91.302S Unspecified open wound, left foot, sequela (principal); E11.621 Type 2 diabetes mellitus with foot ulcer; Z79.899 Other long term (current) drug therapy
CPT/HCPCS: 36415; 80053; 83605; 85025; 87040; 96360; 96361; 99284; J0696

== ENCOUNTER 2017-04-19 17:21 | Emergency (ER) | payer MEDICARE ==
--- NOTE | 2017-04-19 18:08 | ERPHSYRPT ---
- History of Present Illness Historian: patient Exam Limitations: no limitations Patient Subjective Stated Complaint: pt states she was released from [facility] on 08/20. She states she had a paracentesis for cirrhosis during her stay. pt c/o abdominal pain that has been worse over the past few days. Triage Nursing Assessment: pt dusky, warm, dry. abdomen distended. bowel sounds present in all 4 quads. pt afebrile. Timing/Duration: day(s) (5) Activities at Onset: none Quality: aching, fullness Abdominal Pain Onset Location: generalized abdomen Pain Radiation: no radiation Severity of Pain-Max: moderate Severity of Pain-Current: moderate Modifying Factors: Improves With: nothing Associated Symptoms: diarrhea, loss of appetite, nausea, No vomiting Previous symptoms: same symptoms as today, recent hospitalization, recently treated Hx Tetanus, Diphtheria Vaccination/Date Given: Yes (up to date) Hx Influenza Vaccination/Date Given: No Hx Pneumococcal Vaccination/Date Given: No Immunizations Up to Date: Yes <GRACIE HADDAD - Last Filed: 04/19/17 19:07> <GRACIE HURTADO - Last Filed: 04/19/17 22:51> - History of Present Illness Time Seen by Provider: 04/19/17 18:01 Physician History: The patient is a 52-year-old female complaining of abdominal pain and distention since she was released from [facility] in [place]. She was seen at [facility] for abdominal pain and distention. She states they did a paracentesis on her abdomen. She doesn't think they drained enough fluid from it. She has known cirrhosis that was diagnosed in January. She spent 5 days at [facility] in [place] and was treated for ascites secondary to cirrhosis. Today she states she also is nauseated. She thinks she needs more fluid to be taken off of her abdomen. Her past medical history is significant for cirrhosis. Ascites. Left foot cellulitis. Hypertension. COPD. Diabetes. Depression. GERD. (GRACIE HADDAD) Allergies/Adverse Reactions: Adhesive Bandage *RETIRED-12/26/12 [Adhesive Bandage] Allergy (Mild, Unverified 04/19/17 17:44) "silk tape" bee stings Allergy (Mild, Uncoded 04/19/17 17:44) Hives Home Medications: Aspirin 81 gm Chew [Baby Aspirin 81 mg Chew] 81 mg PO DAILY 11/17/12 [ History] Duloxetine HCl 30 mg [Cymbalta 30 MG Capsule] 60 mg PO HS 11/17/12 [ History] Multivitamin [Multivitamins] 1 each PO DAILY 11/17/12 [History] Albuterol Sulfate [Proair Hfa] 2 puff IH Q3H/PRN PRN 04/21/15 [History] Budesonide/Formoterol Fumarate [Symbicort 160-4.5 Mcg Inhaler] 2 puff IH BID [History] Omeprazole 20 MG [Prilosec 20 mg] 20 mg PO DAILY 04/21/15 [History] Pravastatin Sodium [Pravachol] 10 mg PO DAILY 02/07/16 [History] Furosemide 40 mg [Lasix 40 MG] 40 mg PO DAILY 11/11/16 [History] Gabapentin [Gralise] 1,800 mg PO EVENING MEAL 11/11/16 [History] Loratadine 10 mg [Claritin 10 mg] 10 mg PO DAILY 11/11/16 [History] Insulin Aspart [Novolog Flexpen] 0 unit SQ AC 01/22/17 [History] Insulin Glargine,Hum.rec.anlog [Lantus Solostar] 50 unit SQ HS 01/27/17 [History ] Magnesium Oxide 400 mg [Mag-Ox 400] 800 mg PO BID 01/27/17 [History] - Review of Systems Constitutional: No Fever, No Chills Eyes: No Symptoms Ears, Nose, & Throat: No Symptoms Respiratory: No Cough, No Dyspnea Cardiac: No Chest Pain, No Edema, No Syncope Abdominal/Gastrointestinal: Nausea, Diarrhea Genitourinary Symptoms: No Dysuria Musculoskeletal: No Back Pain, No Neck Pain Skin: No Rash Neurological: No Dizziness, No Focal Weakness, No Sensory Changes Psychological: No Symptoms Endocrine: No Symptoms Hematologic/Lymphatic: No Symptoms Immunological/Allergic: No Symptoms All Other Systems: Reviewed and Negative <GRACIE HADDAD - Last Filed: 04/19/17 19:07> - Past Medical History Pertinent Past Medical History: Yes Neurological History: No Pertinent History ENT History: No Pertinent History Cardiac History: Hypertension Respiratory History: Asthma, COPD, Pneumonia Endocrine Medical History: Diabetes Type II Musculoskeletal History: Fractures GI Medical History: GERD, Other History: No Pertinent History Psycho-Social History: Anxiety, Depression Female Reproductive Disorders: No Pertinent History Other Medical History: left ankle fx with mult surgeries. wound center left foot - Past Surgical History Past Surgical History: Yes Neuro Surgical History: No Pertinent History Cardiac: No Pertinent History Respiratory: No Pertinent History Gastrointestinal: Cholecystectomy, Exploratory Laparoscopy Genitourinary: No Pertinent History Musculoskeletal: No Pertinent History Female Surgical History: Section, Hysterectomy Other Surgical History: foot surgery, screw placed in left big toe, removal, and antibiotic beed placement. mult lt foot surgeries - Social History Smoking Status: Current every day smoker How long have you smoked: 35 Exposure to second hand smoke: Yes Drug Use: none Patient Lives Alone: No - Female History Hx Now: No <GRACIE HADDAD - Last Filed: 04/19/17 19:07> - Physical Exam General Appearance: moderate distress Eye Exam: PERRL/EOMI, eyes nml inspection Ears, Nose, Throat Exam: normal ENT inspection, pharynx normal, moist mucous membranes Neck Exam: normal inspection, non-tender, supple, full range of motion Respiratory Exam: diminished breath sounds, prolonged expirations, rhonchi, No respiratory distress Cardiovascular Exam: regular rate/rhythm Gastrointestinal/Abdomen Exam: tenderness, distention, other (fluid wave) Pelvic Exam: not done Rectal Exam: not done Back Exam: normal inspection, normal range of motion, No CVA tenderness, No vertebral tenderness Extremity Exam: normal range of motion, pelvis stable, other (left foot and lower leg bandaged) Neurologic Exam: alert, 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, cooperative, normal mood/affect, nml cerebellar function, sensation nml, No motor deficits Skin Exam: normal color, warm, dry SpO2 Interpretation: normal SpO2: 96 Oxygen Delivery: Room Air <GRACIE HADDAD - Last Filed: 04/19/17 19:07> - Nursing Vital Signs Nursing Vital Signs: Initial Vital Signs Temperature 98.5 F 04/19/17 17:25 Pulse Rate 125 H 04/19/17 17:25 Respiratory Rate 26 H 04/19/17 17:25 Blood Pressure 141/78 04/19/17 17:25 O2 Sat by Pulse Oximetry 96 04/19/17 17:25 Pain Scale Pain Intensity 6 - CT Exams Abdomen/Pelvis CT Interpretation: Tele-radiologist Report (CIRRHOSIS WITH EVIDENCE OF PORTAL HYPERTENSION INCLUDING MASSIVE ASCITES AND SPLENOMEGLAY. SEE REST OF REPORT.) - Radiology Ultrasound Exam Left Venous Lower Extremity Ultrasound: Other (TECH REPORT: NO DVT.) <GRACIE HURTADO - Last Filed: 04/19/17 22:51> Ordered Tests: Active Orders 24 hr Category Date Time Status IV Insertion STAT Care 04/19/17 18:06 Active cath [Cath for Specimen-Straight] STAT Care 04/19/17 18:49 Active ABDOMEN AND PELVIS W/0 CONTRAS [CT] Stat Exams 04/19/17 20:35 Taken CHEST 2 VIEWS (PA AND LAT) Stat Exams 04/19/17 20:35 Taken KUB Stat Exams 04/19/17 18:26 Taken VENOUS UNILAT/LIMITED EXTREMIT [US] Stat Exams 04/19/17 20:59 Taken AMYLASE Stat Lab 04/19/17 17:30 Completed CBC W DIFF Stat Lab 04/19/17 18:30 Completed CMP Stat Lab 04/19/17 18:30 Completed CULTURE,URINE Stat Lab 04/19/17 18:30 Received LIPASE Stat Lab 04/19/17 18:30 Completed Lactic Acid Stat Lab 04/19/17 Completed PROTIME WITH INR Stat Lab 04/19/17 18:30 Completed UA W/ MICROSCOPIC Stat Lab 04/19/17 18:30 Completed Respiratory Nebulizer STAT RT 04/19/17 22:06 Active Medication Summary Discontinued Medications Generic Name Dose Route Start Last Admin Trade Name Freq PRN Reason Stop Dose Admin Levalbuterol HCl 1.25 mg 04/19/17 20:35 04/19/17 22:01 Xopenex 1.25 Mg/0.5 Ml Ud Nebule IH 04/19/17 20:36 1.25 mg STAT ONE Administration Levalbuterol HCl Confirm 04/19/17 21:01 Xopenex 1.25 Mg/0.5 Ml Ud Nebule Administered 04/19/17 21:02 Dose 1.25 mg IH .STK-MED ONE Ondansetron HCl 4 mg 04/19/17 18:25 04/19/17 18:30 Zofran 4 Mg/2 Ml Vial IV 04/19/17 18:26 4 mg STAT ONE Administration Ondansetron HCl Confirm 04/19/17 18:29 Zofran 4 Mg/2 Ml Vial Administered 04/19/17 18:30 Dose 4 mg .ROUTE .STK-MED ONE Sodium Chloride Confirm 04/19/17 21:02 Sodium Chloride 3 Ml Ud Nebules Administered 04/19/17 21:03 Dose 3 ml IH .STK-MED ONE Lab/Rad Data: Laboratory Result Diagrams 04/19/17 18:30 04/19/17 18:30 Laboratory Results 04/19/17 04/19/17 04/19/17 Range/Units Unknown 18:30 18:30 WBC (4.0-10.5) K/mm3 RBC (4.1-5.4) M/mm3 Hgb (12.0-16.0) gm/dl Hct (35-47) % MCV (78-100) fl MCH (26-32) pg MCHC (32-36) g/dl RDW (11.5-14.0) % Plt Count (150-450) K/mm3 MPV (6-9.5) fl Gran % (36.0-66.0) % Lymphocytes % (24.0-44.0) % Monocytes % (0.0-12.0) % Eosinophils % (0.00-5.0) % Basophils % (0.0-0.4) % Basophils # (0-0.4) INR 1.26 (0.8-3.0) Sodium (136-145) mEq/L Potassium (3.5-5.1) mEq/L Chloride (98-107) mEq/L Carbon Dioxide (21-32) mEq/L Anion Gap (5-15) MEQ/L BUN (9-20) mg/dL Creatinine (0.55-1.30) mg/dl Estimated GFR ML/MIN Glucose (70-110) MG/DL Lactic Acid 1.3 (0.4-2.0) Calcium (8.5-10.1) mg/dL Total Bilirubin (0.2-1.0) mg/dL AST (15-37) U/L ALT (12-78) U/L Alkaline Phosphatase (46-116) U/L Serum Total Protein (6.4-8.2) gm/dL Albumin (3.4-5.0) g/dL Amylase (25-115) U/L Lipase (73-393) U/L Ur Collection Type CATH Urine Color DARK YELLOW (YELLOW) Urine Appearance SLIGHTLY CLOUDY (CLEAR) Urine pH 5.0 (5-6) Ur Specific [place] 1.020 (1.005-1.025) Urine Protein 300 (Negative) Urine Ketones MODERATE (NEGATIVE) Urine Blood TRACE LYSED (0-5) Ubaldo/ul Urine Nitrite NEGATIVE (NEGATIVE) Urine Bilirubin + (NEGATIVE) Urine Urobilinogen NORMAL (0-1) mg/dL Ur Leukocyte Esterase NEGATIVE (NEGATIVE) Urine Microscopic RBC 2-5 (0-2) /HPF Urine Microscopic WBC 2-5 (0-5) /HPF Ur Epithelial Cells FEW (FEW) /HPF Amorphous Crystals MODERATE (NEGATIVE) /HPF Urine Bacteria FEW (NEGATIVE) /HPF Urine Glucose 50 (NEGATIVE) mg/dL Specimen Received 04/19/17 1841 04/19/17 04/19/17 04/19/17 Range/Units 18:30 18:30 17:30 WBC 11.9 H (4.0-10.5) K/mm3 RBC 3.53 L (4.1-5.4) M/mm3 Hgb 8.5 L (12.0-16.0) gm/dl Hct 27.7 L (35-47) % MCV 78.5 (78-100) fl MCH 24.0 L (26-32) pg MCHC 30.7 L (32-36) g/dl RDW 19.9 H (11.5-14.0) % Plt Count 247 (150-450) K/mm3 MPV 9.8 H (6-9.5) fl Gran % 88.1 H (36.0-66.0) % Lymphocytes % 6.9 L (24.0-44.0) % Monocytes % 4.5 (0.0-12.0) % Eosinophils % 0.3 (0.00-5.0) % Basophils % 0.2 (0.0-0.4) % Basophils # 0.02 (0-0.4) INR (0.8-3.0) Sodium 133 L (136-145) mEq/L Potassium 4.6 (3.5-5.1) mEq/L Chloride 100 (98-107) mEq/L Carbon Dioxide 18.9 L (21-32) mEq/L Anion Gap 18.4 H (5-15) MEQ/L BUN 15 (9-20) mg/dL Creatinine 1.11 (0.55-1.30) mg/dl Estimated GFR 55 ML/MIN Glucose 208 H (70-110) MG/DL Lactic Acid (0.4-2.0) Calcium 8.2 L (8.5-10.1) mg/dL Total Bilirubin 0.60 (0.2-1.0) mg/dL AST 43 H (15-37) U/L ALT 27 (12-78) U/L Alkaline Phosphatase 331 H (46-116) U/L Serum Total Protein 7.4 (6.4-8.2) gm/dL Albumin 1.9 L (3.4-5.0) g/dL Amylase 21 L (25-115) U/L Lipase 126 (73-393) U/L Ur Collection Type Urine Color (YELLOW) Urine Appearance (CLEAR) Urine pH (5-6) Ur Specific [place] (1.005-1.025) Urine Protein (Negative) Urine Ketones (NEGATIVE) Urine Blood (0-5) Ubaldo/ul Urine Nitrite (NEGATIVE) Urine Bilirubin (NEGATIVE) Urine Urobilinogen (0-1) mg/dL Ur Leukocyte Esterase (NEGATIVE) Urine Microscopic RBC (0-2) /HPF Urine Microscopic WBC (0-5) /HPF Ur Epithelial Cells (FEW) /HPF Amorphous Crystals (NEGATIVE) /HPF Urine Bacteria (NEGATIVE) /HPF Urine Glucose (NEGATIVE) mg/dL Specimen Received <GRACIE HADDAD - Last Filed: 04/19/17 19:07> - Progress Discussed with DrJace: Other (SPOKE WITH Angel [facility](FOR DR WEBER)([id number]) WHO ACCEPTED PT FOR TRANSFER TO [facility] A DIRECT ADMISSION.) <GRACIE HURTADO - Last Filed: 04/19/17 22:51> - Progress Progress Note: 04/19/17 19:07 Pt care discussed and care transferred to Dr Hurtado at 19:00. (GRACIE HADDAD) 04/19/17 20:[address] HURTADO 2020: PERRL; EOMI; PHARYNX PINK; LUNGS HAVE RHONCHI AND MILD EXPIRATORY WHEEZING; NO CARDIAC RUB; ABDOMINAL B.S. NORMAL WITH MILDLY TENDER DISTENDED ABDOMEN AND FLUID WAVE; LEFT FOOT HAS +3 EDEMA WITH ULCER ON THE LEFT DORSUM ~ 1 CM DIAMETER(ONGOING); ALERT & COOPERATIVE. PT STATES SHE HAS SOME PAIN IN THE LEFT LEG AND HAD A BLOOD CLOT IN THAT LEG LAST YEAR. (GRACIE HURTADO) <GRACIE HADDAD - Last Filed: 04/19/17 19:07> - Departure Time of Disposition: 22:51 Departure Disposition: Transfer ([facility]) Critical Care Time: No <GRACIE HURTADO - Last Filed: 04/19/17 22:51> - Departure Clinical Impression: ABDOMINAL PAIN/DISTENTION, MASSIVE ASCITES AND SPLENOMEGALY, BRONCHITIS, COPD, HTN, DM, GERD, ANXIETY, DEPRESSION, ULCER OF LEFT FOOT, ANEMIA, HYPOALBUMINEMIA Condition: Stable Referrals: ROSELIA BOWER [Primary Care Provider] -
[2017-04-19] MEDS ORDERED: Zofran 4 MG/2 ML VIAL IV ONE (18:25)
[2017-04-19] MEDS ORDERED: Zofran 4 MG/2 ML VIAL ONE (18:29)
[2017-04-19 18:33] LABS: BASOPHIL % 0.2 % (0.0-0.4); Eosinophil % 0.3 % (0.00-5.0); Granulocytes % 88.1 % (36.0-66.0); Lymphocytes % 6.9 % (24.0-44.0); Mean Cell Volume 78.5 fl (78-100); Mean Platelet Volume 9.8 fl (6-9.5); Monocytes % 4.5 % (0.0-12.0); Platelet Count 247 K/mm3 (150-450); Red Blood Count 3.53 M/mm3 (4.1-5.4); Red Cell Distribution Width 19.9 % (11.5-14.0); White Blood Count 11.9 K/mm3 (4.0-10.5)
[2017-04-19 18:55] LABS: ALBUMIN 1.9 g/dL (3.4-5.0); ANION GAP 18.4 MEQ/L (5-15); BILIRUBIN,TOTAL 0.6 mg/dL (0.2-1.0); Carbon Dioxide 18.9 mEq/L (21-32); Potassium 4.6 mEq/L (3.5-5.1); Total Protein 7.4 gm/dL (6.4-8.2)
[2017-04-19 18:58] LABS: INR 1.26 (0.8-3.0); PROTIME 14.3 SECONDS (9.95-12.35)
[2017-04-19 19:19] LABS: Blood TRACE LYSED Ery/ul (0-5); Collection Type CATH; Glucose 50 mg/dL (NEGATIVE); Leukocyte Esterase NEGATIVE (NEGATIVE)
[2017-04-19 19:20] LABS: Bacteria FEW /HPF (NEGATIVE); COMPLETE URINE MICROSCOPIC? YES; Epithelial Cells FEW /HPF (FEW)
[2017-04-19 19:21] LABS: ADD URINE CULTURE? YES (NO)
[2017-04-19] MEDS ORDERED: Xopenex 1.25 MG/0.5 ML UD NEBULE IH ONE ×2 (20:35→21:01)
[2017-04-19] MEDS ORDERED: Sodium Chloride 3 ML UD NEBULES IH ONE (21:02)
[2017-04-19 22:09] VITALS: PULSE 110
[2017-04-20 00:09] VITALS: BP 117/78; O2SAT 93
--- NOTE | 2017-04-20 08:56 | XRAY ---
Indication: Abdominal pain, nausea, and vomiting. History of cirrhosis. Multiple contiguous axial images obtained through the abdomen and pelvis without contrast as ordered. Comparison: January 27, 2017. Lung bases again demonstrates diffuse bilateral interstitial alveolar opacities without consolidation or effusion. Heart is not enlarged. Again cirrhotic appearing liver with large amount of abdominal and pelvic ascites. No free air. Spleen remains enlarged today measuring 15.5 cm in greatest axial dimension. Noncontrasted stomach and bowel loops appear nonobstructed. Again previous cholecystectomy and hysterectomy. Urinary bladder is normally distended with again circumferential wall thickening either incomplete distention versus cystitis. Remaining pancreas, adrenal glands, kidneys, and ureters are unremarkable for noncontrast exam. There remains mild aortoiliac calcifications without aneurysm. Osseous structures intact with minimal degenerative changes throughout the spine. Lower abdominal wall again demonstrates marked cutaneous/subcutaneous induration. Impression: 1. Stable cirrhotic liver with large abdominal/pelvic ascites. 2. Again splenomegaly. 3. Stable urinary bladder wall thickening either incomplete distention versus cystitis. 4. Lung bases demonstrates again diffuse bilateral interstitial alveolar opacities. Comment: Preliminary interpretation was made by [facility]. No critical discrepancy. CTDI 27.23
--- NOTE | 2017-04-20 08:57 | XRAY ---
Indication: Abdominal pain. Ascites. Comparison: None KUB appears nonacute and nonobstructed with known large ascites and cholecystectomy clips. Solid organs unremarkable. Osseous structures intact with mild degenerative changes.
--- NOTE | 2017-04-20 09:04 | XRAY ---
Indication: Left leg pain. Two-dimensional sonogram and color Doppler imaging of the major venous vessels of the left leg was performed. Comparison: None Posterior tibial vein not imaged due to overlying bandage. No thrombus seen in the remaining examined deep venous vessels of the left leg including greater saphenous vein. Veins demonstrate normal compressibility. Venous waveforms are normal with and without augmentation. Impression: Posterior tibial vein not imaged. Left leg negative for DVT. Comment: Preliminary report was given.
--- NOTE | 2017-04-20 09:05 | XRAY ---
Indication: Wheezing. Comparison: January 22, 2017. AP/lateral chest unchanged again demonstrating right base infiltrate/atelectasis and left arm PICC line. Remaining left lung and heart unremarkable. Bony thorax intact.
== END 2017-04-20 00:35 | disposition short-term general hospital (02) ==
LOC: ED 17:21
DX: R10.84 Generalized abdominal pain (principal); R14.0 Abdominal distension (gaseous); R18.8 Other ascites; R16.1 Splenomegaly, not elsewhere classified; J40 Bronchitis, not specified as acute or chronic; J44.9 Chronic obstructive pulmonary disease, unspecified; I10 Essential (primary) hypertension; E11.9 Type 2 diabetes mellitus without complications; K21.9 Gastro-esophageal reflux disease without esophagitis; F41.9 Anxiety disorder, unspecified; F32.9 Major depressive disorder, single episode, unspecified; L97.529 Non-pressure chronic ulcer of other part of left foot with unspecified severity; D64.9 Anemia, unspecified; E88.09 Other disorders of plasma-protein metabolism, not elsewhere classified; R19.7 Diarrhea, unspecified; R11.2 Nausea with vomiting, unspecified; R63.0 Anorexia; K74.60 Unspecified cirrhosis of liver; L03.116 Cellulitis of left lower limb; Z79.4 Long term (current) use of insulin; Z79.899 Other long term (current) drug therapy
CPT/HCPCS: 36591; 99285; 82150; 81000; 85610; 36415; 83690; 85025; 80053; 87086; 93971; 71020; 74000; 74176; 94640; 83605; P9612; J2405; A9270-GY

== ENCOUNTER 2017-09-08 19:41 | Inpatient (IN) | payer MEDICARE ==
[2017-09-08] MEDS ORDERED: D50W 50 ml Abboject IV ONE ×2 (19:47→19:56)
[2017-09-08] MEDS ORDERED: Zithromax 500 MG/ 250 ML NaCl Premix 500 MG/250 ML IVPB IV STA (19:53)
[2017-09-08] MEDS ORDERED: DUONEB 0.5-3 MG/3 ml Neb IH ONE ×2 (19:53→19:58)
[2017-09-08] MEDS ORDERED: ROCEPHIN 1 Gm-D5w 50 ml Bag** 1 G/50 ML IVPB IV STA (19:53)
[2017-09-08] MEDS ORDERED: solu-MEDROL 125 MG IV ONE (19:53)
[2017-09-08] MEDS ORDERED: Sodium Chloride 0.9% 1000 ML 1,000 ML IV SCH (20:00)
[2017-09-08] MEDS ORDERED: Sodium Chloride 0.9% 1000 ML 1,000 ML ONE (20:15)
[2017-09-08] MEDS ORDERED: ROCEPHIN 1 Gm-D5w 50 ml Bag** 1 G/50 ML IVPB IV ONE (20:15)
[2017-09-08] MEDS ORDERED: solu-MEDROL 125 MG ONE (20:15)
--- NOTE | 2017-09-08 20:19 | ERPHSYRPT ---
- History of Present Illness Time Seen by Provider: 09/08/17 19:50 Source: patient, EMS Exam Limitations: clinical condition Patient Subjective Stated Complaint: was found unresponsive per EMS by family member, unknown length of time unresponsive, responsive to voice upon arrival Triage Nursing Assessment: patient responsive to stimulus and verbal upon arrival. Physician History: PATIENT WITH A HISTORY OF TYPE 2 DIABETES, CIRRHOSIS, HYPERTENSION, COPD WAS FOUND PER EMS UNRESPONSIVE BY FAMILY MEMBER, HAD ACCUCHECK OF 33, GIVEN AN AMP OF GLUCAGON WITH MINIMAL RESPONSE. PATIENT RESPONSIVE TO VERBAL STIMULI. Timing/Duration: other (PRIOR TO ARRIVAL ) Severity: severe Character of Deficits: other (UNRESPONSIVE) Deficits: weak (RESPONSIVE TO VERBAL STIMULI) Baseline/Normal Cognition: alert 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 Current Cognition: poor alertness Baseline Gait: walks w/o assistance Associated Symptoms: weakness Allergies/Adverse Reactions: Adhesive Bandage *RETIRED-12/26/12 [Adhesive Bandage] Allergy (Mild, Unverified 04/19/17 17:44) "silk tape" bee stings Allergy (Mild, Uncoded 04/19/17 17:44) Hives Home Medications: Aspirin 81 gm Chew [Baby Aspirin 81 mg Chew] 81 mg PO DAILY 11/17/12 [ History] Duloxetine HCl 30 mg [Cymbalta 30 MG Capsule] 60 mg PO HS 11/17/12 [ History] Multivitamin [Multivitamins] 1 each PO DAILY 11/17/12 [History] Albuterol Sulfate [Proair Hfa] 2 puff IH Q3H/PRN PRN 04/21/15 [History] Budesonide/Formoterol Fumarate [Symbicort 160-4.5 Mcg Inhaler] 2 puff IH BID [History] Omeprazole 20 MG [Prilosec 20 mg] 20 mg PO DAILY 04/21/15 [History] Pravastatin Sodium [Pravachol] 10 mg PO DAILY 02/07/16 [History] Furosemide 40 mg [Lasix 40 MG] 40 mg PO DAILY 11/11/16 [History] Gabapentin [Gralise] 1,800 mg PO EVENING MEAL 11/11/16 [History] Loratadine 10 mg [Claritin 10 mg] 10 mg PO DAILY 11/11/16 [History] Insulin Aspart [Novolog Flexpen] 0 unit SQ AC 01/22/17 [History] Insulin Glargine,Hum.rec.anlog [Lantus Solostar] 50 unit SQ HS 01/27/17 [History ] Magnesium Oxide 400 mg [Mag-Ox 400] 800 mg PO BID 01/27/17 [History] Hx Tetanus, Diphtheria Vaccination/Date Given: Yes (up to date) Hx Influenza Vaccination/Date Given: No Hx Pneumococcal Vaccination/Date Given: No Immunizations Up to Date: Yes - Review of Systems Constitutional: Weakness, No Fever, No Chills Eyes: No Symptoms Ears, Nose, & Throat: No Symptoms Respiratory: No Cough, No Dyspnea Cardiac: No Symptoms, No Chest Pain, No Edema, No Syncope Abdominal/Gastrointestinal: No Symptoms, No Abdominal Pain, No Nausea, No Vomiting, No Diarrhea Genitourinary Symptoms: No Symptoms, No Dysuria Musculoskeletal: No Symptoms, No Back Pain, No Neck Pain Skin: No Rash Neurological: Lethargy, No Dizziness, No Focal Weakness, No Sensory Changes Psychological: No Symptoms Endocrine: No Symptoms All Other Systems: Reviewed and Negative - Past Medical History Pertinent Past Medical History: Yes Neurological History: No Pertinent History ENT History: No Pertinent History Cardiac History: Hypertension Respiratory History: Asthma, COPD, Pneumonia Endocrine Medical History: Diabetes Type II Musculoskeletal History: Fractures GI Medical History: GERD, Other History: No Pertinent History Psycho-Social History: Anxiety, Depression Female Reproductive Disorders: No Pertinent History Other Medical History: left ankle fx with mult surgeries. wound center left foot - Past Surgical History Past Surgical History: Yes Neuro Surgical History: No Pertinent History Cardiac: No Pertinent History Respiratory: No Pertinent History Gastrointestinal: Cholecystectomy, Exploratory Laparoscopy Genitourinary: No Pertinent History Musculoskeletal: No Pertinent History Female Surgical History: Section, Hysterectomy Other Surgical History: foot surgery, screw placed in left big toe, removal, and antibiotic beed placement. mult lt foot surgeries - Social History Smoking Status: Current every day smoker How long have you smoked: 35 Exposure to second hand smoke: Yes Drug Use: none Patient Lives Alone: No - Nursing Vital Signs Nursing Vital Signs: Initial Vital Signs Temperature 91.2 F 09/08/17 19:52 Pulse Rate 80 09/08/17 19:52 Respiratory Rate 36 H 09/08/17 19:52 Blood Pressure 136/64 09/08/17 19:52 O2 Sat by Pulse Oximetry 100 09/08/17 19:52 Pain Scale Pain Intensity 7 - [place] Coma Scale Best Eye Response ([place]): (4) open spontaneously Best Verbal Response ([place]): (4) confused conversation Best Motor Response (Kavon): (6) obeys commands Kavon Total: 14 - Physical Exam General Appearance: lethargy Eye Exam: bilateral eye: normal inspection, PERRL Ears, Nose, Throat Exam: normal ENT inspection Neck Exam: normal inspection Respiratory: diminished breath sounds, wheezing (DIFFUSE WHEEZES) Cardiovascular: regular rate/rhythm Gastrointestinal: soft, normal bowel sounds, other (NONTENDER) Back Exam: normal inspection, normal range of motion Extremity Exam: normal inspection, normal range of motion Peripheral Pulses: carotid (R): 2+, carotid (L): 2+, femoral (R): 2+, femoral (L ): 2+, dorsalis-pedis (R): 2+, dorsalis-pedis (L): 2+ Mental Status: other (RESPONSIVE TO VERBAL STIMULI) core 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 Exam: normal hearing, normal speech Coordination/Gait: normal finger to nose Motor/Sensory: no motor deficit, no sensory deficit DTR: bicep (R): 2+, bicep (L): 2+, tricep (R): 2+, tricep (L): 2+, knee (R): 2+ , knee (L): 2+, ankle (R): 2+, ankle (L): 2+ SpO2 Interpretation: normal SpO2: 100 Oxygen Delivery: Aerosol Mask - Course EKG Interpreted by Me: RATE, Sinus Rhythm, NORMAL AXIS - Radiology Exams Chest X-ray Interpretation: Interpreted by me (INFILTRATE LEFT LINGULA, RIGHT MIDDLE , LOWER LOBE INFILTRATES) Ordered Tests: Active Orders 24 hr Category Date Time Status Bedrest with BRP/BSC TOLERATED Activity 09/08/17 22:18 Active Accucheck ACHS Care 09/08/17 22:28 Active Admission/Status Order ROUTINE Care 09/08/17 22:18 Active Admission/Status Order ROUTINE Care 09/08/17 22:28 Active Te[place] Yo,Apply DAILY Care 09/08/17 20:00 Active Engraved Roller Inspector STAT Care 09/08/17 19:54 Active Catheter-[place] STAT Care 09/08/17 19:53 Active Code Status Order ROUTINE Care 09/08/17 22:28 Active EKG-ER Only STAT Care 09/08/17 19:53 Active IV Care Q6H Care 09/08/17 22:28 Active IV Insertion ROUTINE Care 09/08/17 22:18 Active Implement Pneumonia Pathway ROUTINE Care 09/08/17 22:18 Active Intake and Output 09,13,18,21 Care 09/08/17 22:18 Active Oxygen-ED Only NASAL CANNULA 2 lpm Care 09/08/17 19:53 Active Dewayne Hose, Apply ROUTINE Care 09/08/17 22:28 Active Vital Signs .q15mx2,q3omx2,q1hx2,q7hw93r Care 09/08/17 22:18 Active Weight,Daily 0600 Care 09/08/17 22:28 Active 2000 Calorie ADA Diet 09/08/17 Breakfast Active CHEST 1 VIEW (PORTABLE) Stat Exams 09/08/17 19:54 Completed BLOOD CULTURE Stat Lab 09/08/17 20:20 Received BMP AM.LAB Lab 09/09/17 04:00 Ordered CBC W DIFF AM.LAB Lab 09/09/17 04:00 Ordered CBC W DIFF Stat Lab 09/08/17 20:20 Completed CMP Stat Lab 09/08/17 20:20 Completed CULTURE,URINE Stat Lab 09/08/17 20:08 Received Lactic Acid Stat Lab 09/08/17 20:07 Completed MAGNESIUM Stat Lab 09/08/17 20:20 Completed NT PRO BNP Stat Lab 09/08/17 20:20 Completed PROTIME WITH INR Stat Lab 09/08/17 20:20 Completed TROPONIN Q3H Lab 09/08/17 20:20 Completed TROPONIN Q3H Lab 09/08/17 23:15 Ordered TROPONIN Q3H Lab 09/09/17 02:15 Ordered TROPONIN Q3H Lab 09/09/17 05:15 Ordered TROPONIN Q3H Lab 09/09/17 08:15 Ordered UA W/ MICROSCOPIC Stat Lab 09/08/17 20:08 Completed Urine Triage Profile Stat Lab 09/08/17 20:05 Completed VENOUS BLOOD GAS Stat Lab 09/08/17 20:07 Completed Oxygen NASAL CANNULA 2 lpm RT 09/08/17 22:28 Active Pulse Oximetry CONTINUOUS RT 09/08/17 22:30 Active Respiratory Nebulizer STAT RT 09/08/17 19:56 Completed Respiratory Nebulizer STAT RT 09/08/17 22:24 Active Respiratory Therapy Consult ROUTINE RT 09/08/17 22:18 Active Transfer Order Routine Transfer 09/08/17 Ordered Medication Summary Generic Name Dose Route Start Last Admin Trade Name Fremaeve PRN Reason Stop Dose Admin Albuterol/Ipratropium 3 ml 09/08/17 22:23 Duoneb 0.5-3 Mg/3 Ml Neb IH 10/08/17 22:22 Q4HPRN PRN SHORTNESS OF BREATH/WHEEZING Sodium Chloride 1,000 mls @ 200 mls/hr 09/08/17 20:00 09/08/17 20:18 Sodium Chloride 0.9% 1000 Ml IV 10/08/17 19:59 200 mls/hr .Q5H TISHA Administration Ceftriaxone Sodium/Dextrose 1 g in 50 mls @ 100 mls/hr 09/09/17 10:00 Rocephin 1 Gm-D5w 50 Ml Bag IV 10/09/17 09:59 Q24H10 TISHA Azithromycin 250 mls @ 125 mls/hr 09/09/17 10:00 Zithromax 500 Mg/ 250 Ml Nacl Premix IV 10/09/17 09:59 Q24H10 TISHA Sodium Chloride 1,000 mls @ 100 mls/hr 09/08/17 22:30 Sodium Chloride 0.9% 1000 Ml IV 10/08/17 22:29 .Q10H TISHA Insulin Aspart 0 unit 09/08/17 22:28 Novolog Insulin SQ 10/08/17 22:27 UD PRN HYPERGLYCEMIA Levalbuterol HCl 1.25 mg 09/08/17 22:23 Xopenex 1.25 Mg/0.5 Ml Ud Nebule IH 10/08/17 22:22 Q2HPRN PRN DIFFICULTY BREATHING Magnesium Oxide 800 mg 09/09/17 10:00 Mag-Ox 400 PO 10/09/17 09:59 BID TISHA Methylprednisolone Sodium Succinate 80 mg 09/09/17 00:00 Solu-Medrol 125 Mg IV 10/09/17 00:00 Q6HT TISHA Discontinued Medications Generic Name Dose Route Start Last Admin Trade Name Allan PRN Reason Stop Dose Admin Albuterol/Ipratropium 3 ml 09/08/17 19:53 09/08/17 20:01 Duoneb 0.5-3 Mg/3 Ml Neb IH 09/08/17 19:54 3 ml STAT ONE Administration Albuterol/Ipratropium Confirm 09/08/17 19:58 Duoneb 0.5-3 Mg/3 Ml Neb Administered 09/08/17 19:59 Dose 3 ml IH .STK-MED ONE Dextrose Confirm 09/08/17 19:47 D50w 50 Ml Abboject Administered 09/08/17 19:48 Dose 50 ml IV .STK-MED ONE Dextrose 50 ml 09/08/17 19:56 09/08/17 20:13 D50w 50 Ml Abboject IV 09/08/17 19:57 50 ml STAT ONE Administration Ceftriaxone Sodium/Dextrose 1 g in 50 mls @ 100 mls/hr 09/08/17 19:53 20:23 Rocephin 1 Gm-D5w 50 Ml Bag IV 09/08/17 20:22 100 mls/hr STAT STA Administration Azithromycin 500 mg in 250 mls @ 250 mls/hr 09/08/17 19:53 09/08/17 20:30 Zithromax 500 Mg/ 250 Ml Nacl Premix IV 09/08/17 20:52 250 mls/hr STAT STA Administration Ceftriaxone Sodium/Dextrose Confirm 09/08/17 20:15 Rocephin 1 Gm-D5w 50 Ml Bag Administered 09/08/17 20:16 Dose 1 g in 50 mls @ ud IV .STK-MED ONE Azithromycin Confirm 09/08/17 20:27 Zithromax 500 Mg/ 250 Ml Nacl Premix Administered 09/08/17 20:28 Dose 500 mg in 250 mls @ ud IV .STK-MED ONE Methylprednisolone Sodium Succinate 125 mg 09/08/17 19:53 09/08/17 20:20 Solu-Medrol 125 Mg IV 09/08/17 19:54 125 mg STAT ONE Administration Methylprednisolone Sodium Succinate Confirm 09/08/17 20:15 Solu-Medrol 125 Mg Administered 09/08/17 20:16 Dose 125 mg .ROUTE .STK-MED ONE Lab/Rad Data: Laboratory Result Diagrams 09/08/17 20:20 09/08/17 20:20 Laboratory Results 09/08/17 09/08/17 09/08/17 Range/Units 20:20 20:20 20:20 WBC (4.0-10.5) K/mm3 RBC (4.1-5.4) M/mm3 Hgb (12.0-16.0) gm/dl Hct (35-47) % MCV (78-100) fl MCH (26-32) pg MCHC (32-36) g/dl RDW (11.5-14.0) % Plt Count (150-450) K/mm3 MPV (6-9.5) fl Gran % (36.0-66.0) % Lymphocytes % (24.0-44.0) % Monocytes % (0.0-12.0) % Eosinophils % (0.00-5.0) % Basophils % (0.0-0.4) % Basophils # (0-0.4) INR 1.31 (0.8-3.0) VBG pH (7.32-7.42) VBG pCO2 at Pat Temp (42-55) mm/Hg VBG pO2 at Pat Temp (25-40) mm/Hg VBG HCO3 (22-28) meq/L VBG O2 Sat (Radha) (95-100) VBG Base Excess (-2.0-2.0) VBG Hemoglobin VBG Carboxyhemoglobin (0.0-6.9) % T HGB POC Potassium (3.5-5.1) Sodium 128 L (136-145) mEq/L Potassium 4.3 (3.5-5.1) mEq/L Chloride 99 (98-107) mEq/L Carbon Dioxide 18.3 L (21-32) mEq/L Anion Gap 15.2 H (5-15) MEQ/L BUN 15 (9-20) mg/dL Creatinine 1.18 (0.55-1.30) mg/dl Estimated GFR 52 ML/MIN Glucose 139 H (70-110) MG/DL Lactic Acid (0.4-2.0) Calcium 8.4 L (8.5-10.1) mg/dL Magnesium 1.6 L (1.8-2.4) mg/dL Total Bilirubin 0.30 (0.2-1.0) mg/dL AST 30 (15-37) U/L ALT 12 (12-78) U/L Alkaline Phosphatase 274 H (46-116) U/L Troponin I < 0.017 (0.000-0.056) ng/ml NT-Pro-B Natriuret Pep 374 H (0-125) pg/ml Serum Total Protein 7.6 (6.4-8.2) gm/dL Albumin 1.9 L (3.4-5.0) g/dL Ur Collection Type Urine Color (YELLOW) Urine Appearance (CLEAR) Urine pH (5-6) Ur Specific Bradley (1.005-1.025) Urine Protein (Negative) Urine Ketones (NEGATIVE) Urine Blood (0-5) Ubaldo/ul Urine Nitrite (NEGATIVE) Urine Bilirubin (NEGATIVE) Urine Urobilinogen (0-1) mg/dL Ur Leukocyte Esterase (NEGATIVE) Urine Microscopic RBC (0-2) /HPF Urine Microscopic WBC (0-5) /HPF Urine Culture Reflexed (NO) Urine Glucose (NEGATIVE) mg/dL Urine Opiates Level (NEGATIVE) Ur Methadone (NEGATIVE) Urine Barbiturates (NEGATIVE) Ur Phencyclidine (PCP) (NEGATIVE) Urine Amphetamine (NEGATIVE) U Benzodiazepine Level (NEGATIVE) Urine Cocaine (NEGATIVE) Urine Marijuana (THC) (NEGATIVE) Specimen Received 09/08/17 09/08/17 09/08/17 Range/Units 20:20 20:08 20:07 WBC 5.6 (4.0-10.5) K/mm3 RBC 4.09 L (4.1-5.4) M/mm3 Hgb 10.6 L (12.0-16.0) gm/dl Hct 33.2 L (35-47) % MCV 81.2 (78-100) fl MCH 25.9 L (26-32) pg MCHC 31.9 L (32-36) g/dl RDW 15.2 H (11.5-14.0) % Plt Count 158 (150-450) K/mm3 MPV 8.7 (6-9.5) fl Gran % 80.2 H (36.0-66.0) % Lymphocytes % 11.6 L (24.0-44.0) % Monocytes % 7.8 (0.0-12.0) % Eosinophils % 0.2 (0.00-5.0) % Basophils % 0.2 (0.0-0.4) % Basophils # 0.01 (0-0.4) INR (0.8-3.0) VBG pH 7.24 L* (7.32-7.42) VBG pCO2 at Pat Temp 52 (42-55) mm/Hg VBG pO2 at Pat Temp 26 (25-40) mm/Hg VBG HCO3 22.3 (22-28) meq/L VBG O2 Sat (Radha) 49.0 L (95-100) VBG Base Excess -5.3 L (-2.0-2.0) VBG Hemoglobin 11.6 VBG Carboxyhemoglobin 3.4 (0.0-6.9) % T HGB POC Potassium 4.3 (3.5-5.1) Sodium (136-145) mEq/L Potassium (3.5-5.1) mEq/L Chloride (98-107) mEq/L Carbon Dioxide (21-32) mEq/L Anion Gap (5-15) MEQ/L BUN (9-20) mg/dL Creatinine (0.55-1.30) mg/dl Estimated GFR ML/MIN Glucose (70-110) MG/DL Lactic Acid (0.4-2.0) Calcium (8.5-10.1) mg/dL Magnesium (1.8-2.4) mg/dL Total Bilirubin (0.2-1.0) mg/dL AST (15-37) U/L ALT (12-78) U/L Alkaline Phosphatase (46-116) U/L Troponin I (0.000-0.056) ng/ml NT-Pro-B Natriuret Pep (0-125) pg/ml Serum Total Protein (6.4-8.2) gm/dL Albumin (3.4-5.0) g/dL Ur Collection Type CCMS Urine Color YELLOW (YELLOW) Urine Appearance CLEAR (CLEAR) Urine pH 6.0 (5-6) Ur Specific Bradley 1.010 (1.005-1.025) Urine Protein 100 (Negative) Urine Ketones NEGATIVE (NEGATIVE) Urine Blood 50 (0-5) Ubaldo/ul Urine Nitrite NEGATIVE (NEGATIVE) Urine Bilirubin NEGATIVE (NEGATIVE) Urine Urobilinogen NORMAL (0-1) mg/dL Ur Leukocyte Esterase NEGATIVE (NEGATIVE) Urine Microscopic RBC 0-2 (0-2) /HPF Urine Microscopic WBC 0-2 (0-5) /HPF Urine Culture Reflexed YES (NO) Urine Glucose NEGATIVE (NEGATIVE) mg/dL Urine Opiates Level (NEGATIVE) Ur Methadone (NEGATIVE) Urine Barbiturates (NEGATIVE) Ur Phencyclidine (PCP) (NEGATIVE) Urine Amphetamine (NEGATIVE) U Benzodiazepine Level (NEGATIVE) Urine Cocaine (NEGATIVE) Urine Marijuana (THC) (NEGATIVE) Specimen Received 09-08-17 2030 09/08/17 09/08/17 Range/Units 20:07 20:05 WBC (4.0-10.5) K/mm3 RBC (4.1-5.4) M/mm3 Hgb (12.0-16.0) gm/dl Hct (35-47) % MCV (78-100) fl MCH (26-32) pg MCHC (32-36) g/dl RDW (11.5-14.0) % Plt Count (150-450) K/mm3 MPV (6-9.5) fl Gran % (36.0-66.0) % Lymphocytes % (24.0-44.0) % Monocytes % (0.0-12.0) % Eosinophils % (0.00-5.0) % Basophils % (0.0-0.4) % Basophils # (0-0.4) INR (0.8-3.0) VBG pH (7.32-7.42) VBG pCO2 at Pat Temp (42-55) mm/Hg VBG pO2 at Pat Temp (25-40) mm/Hg VBG HCO3 (22-28) meq/L VBG O2 Sat (Radha) (95-100) VBG Base Excess (-2.0-2.0) VBG Hemoglobin VBG Carboxyhemoglobin (0.0-6.9) % T HGB POC Potassium (3.5-5.1) Sodium (136-145) mEq/L Potassium (3.5-5.1) mEq/L Chloride (98-107) mEq/L Carbon Dioxide (21-32) mEq/L Anion Gap (5-15) MEQ/L BUN (9-20) mg/dL Creatinine (0.55-1.30) mg/dl Estimated GFR ML/MIN Glucose (70-110) MG/DL Lactic Acid 1.0 (0.4-2.0) Calcium (8.5-10.1) mg/dL Magnesium (1.8-2.4) mg/dL Total Bilirubin (0.2-1.0) mg/dL AST (15-37) U/L ALT (12-78) U/L Alkaline Phosphatase (46-116) U/L Troponin I (0.000-0.056) ng/ml NT-Pro-B Natriuret Pep (0-125) pg/ml Serum Total Protein (6.4-8.2) gm/dL Albumin (3.4-5.0) g/dL Ur Collection Type Urine Color (YELLOW) Urine Appearance (CLEAR) Urine pH (5-6) Ur Specific Bradley (1.005-1.025) Urine Protein (Negative) Urine Ketones (NEGATIVE) Urine Blood (0-5) Ubaldo/ul Urine Nitrite (NEGATIVE) Urine Bilirubin (NEGATIVE) Urine Urobilinogen (0-1) mg/dL Ur Leukocyte Esterase (NEGATIVE) Urine Microscopic RBC (0-2) /HPF Urine Microscopic WBC (0-5) /HPF Urine Culture Reflexed (NO) Urine Glucose (NEGATIVE) mg/dL Urine Opiates Level NEG. (NEGATIVE) Ur Methadone NEG. (NEGATIVE) Urine Barbiturates NEG. (NEGATIVE) Ur Phencyclidine (PCP) NEG. (NEGATIVE) Urine Amphetamine NEG. (NEGATIVE) U Benzodiazepine Level POS. (NEGATIVE) Urine Cocaine NEG. (NEGATIVE) Urine Marijuana (THC) NEG. (NEGATIVE) Specimen Received - Progress Progress: improved Progress Note: 09/08/17 20:21 ACCUCHECK UPON ARRIVAL 33, IV AMP D-50 MORE ALERT, IV NORMAL SALINE 200ML/HR, RECTAL TEMP 91, PLACED ON DOUG HUGGER, FOLLOWED BY DUONEB AEROSOL, AFTER 2 SETS OF BLOOD CULTURES ADMINISTERED ROCEPHIN 1GM, ZITHROMAX 500MG IVPB 09/08/17 21:48 PATIENT IS PROGRESSIVELY MORE ALERT 09/08/17 22:16- TEMP IMPROVED TO 92.[address] Troncoso (DISCUSSED WITH DR TRONCOSO AT 2130 FOR ADMISSION) - Departure Time of Disposition: 22:30 Departure Disposition: In-patient Admission Clinical Impression: PNEUMONIA, UNCONTROLLED DIABETES, HYPOTHERMIA Condition: Stable Critical Care Time: No Referrals: ROSELIA BOWER [Primary Care Provider] -
[2017-09-08 20:26] LABS: BASOPHIL % 0.2 % (0.0-0.4); Basophil (Absolute #) 0.01 (0-0.4); Eosinophil % 0.2 % (0.00-5.0); Eosinophil (Absolute #) 0.01 (0-0.5); Granulocyte Absolute (ANC) 4.51 (1.4-6.9); Granulocytes % 80.2 % (36.0-66.0); Hematocrit 33.2 % (35-47); Hemoglobin 10.6 gm/dl (12.0-16.0); Lymphocyte (Absolute #) 0.65 (1.0-4.6); Lymphocytes % 11.6 % (24.0-44.0); Mean Cell Volume 81.2 fl (78-100); Mean Corpuscular Hemoglobin 25.9 pg (26-32); Mean Corpuscular Hgb Concent. 31.9 g/dl (32-36); Mean Platelet Volume 8.7 fl (6-9.5); Monocyte (Absolute #) 0.44 (0.0-1.3); Monocytes % 7.8 % (0.0-12.0); Platelet Count 158 K/mm3 (150-450); Red Blood Count 4.09 M/mm3 (4.1-5.4); Red Cell Distribution Width 15.2 % (11.5-14.0); White Blood Count 5.6 K/mm3 (4.0-10.5)
[2017-09-08] MEDS ORDERED: Zithromax 500 MG/ 250 ML NaCl Premix 500 MG/250 ML IVPB IV ONE (20:27)
[2017-09-08 20:29] LABS: VBG BASE EXCESS -5.3 (-2.0-2.0); VBG CARBOXYHEMOGLOBIN 3.4 % T HGB (0.0-6.9); VBG HCO3- 22.3 meq/L (22-28); VBG HEMOGLOBIN 11.6; VBG POTASSIUM 4.3 (3.5-5.1)
[2017-09-08 20:30] LABS: VBG pH 7.24 (7.32-7.42)
[2017-09-08 20:56] LABS: Appearance CLEAR (CLEAR); Bilirubin NEGATIVE (NEGATIVE); Blood 50 Ery/ul (0-5); Glucose NEGATIVE (NEGATIVE); Ketones NEGATIVE (NEGATIVE); Leukocyte Esterase NEGATIVE (NEGATIVE); Nitrite NEGATIVE (NEGATIVE); Protein,Urine Dip 100 (Negative); Urobilinogen NORMAL mg/dL (0-1)
[2017-09-08 20:57] LABS: WBC 0-2 /HPF (0-5)
[2017-09-08 21:03] LABS: INR 1.31 (0.8-3.0)
[2017-09-08 21:04] LABS: ALBUMIN 1.9 g/dL (3.4-5.0); ANION GAP 15.2 MEQ/L (5-15); BILIRUBIN,TOTAL 0.3 mg/dL (0.2-1.0); Calcium 8.4 mg/dL (8.5-10.1); Carbon Dioxide 18.3 mEq/L (21-32); Creatinine 1 1.18 mg/dl (0.55-1.30); MAGNESIUM 1.6 mg/dL (1.8-2.4); Potassium 4.3 mEq/L (3.5-5.1); Total Protein 7.6 gm/dL (6.4-8.2)
[2017-09-08 21:21] LABS: Amphetamine,Urine NEG. (NEGATIVE); Barbiturate,Urine NEG. (NEGATIVE); Benzodiazepine,Urine POS. (NEGATIVE); Cocaine,Urine NEG. (NEGATIVE); Methadone,Urine NEG. (NEGATIVE); Opiate,Urine NEG. (NEGATIVE); PCP,Urine NEG. (NEGATIVE); THC,Urine NEG. (NEGATIVE)
[2017-09-08] MEDS ORDERED: Xopenex 1.25 MG/0.5 ML UD NEBULE IH PRN (22:23)
--- NOTE | 2017-09-08 22:27 | XRAY ---
Indication: Found unresponsive. Cough and dyspnea. Comparison: April 19, 2017. Portable chest slightly underinflated with again right base infiltrate/atelectasis but no consolidation or large effusion. Left lung remains clear. Heart is not enlarged for AP portable technique. Bony thorax intact.
[2017-09-08] MEDS ORDERED: NovoLOG Insulin SQ PRN (22:28)
[2017-09-08] MEDS: DUONEB 0.5-3 MG/3 ml Neb IH PRN (23:35)
[2017-09-09] MEDS: solu-MEDROL 125 MG IV SCH ×3 (01:13→13:19)
[2017-09-09] MEDS: Sodium Chloride 0.9% 1000 ML 1,000 ML IV SCH ×3 (01:14→16:25)
[2017-09-09 07:08] LABS: ANION GAP 17.2 MEQ/L (5-15); Calcium 8.3 mg/dL (8.5-10.1); Carbon Dioxide 18.7 mEq/L (21-32); Creatinine 1 1.22 mg/dl (0.55-1.30)
[2017-09-09] MEDS ORDERED: Sodium Chloride 0.9% 500 ML 500 ML IV ONE ×2 (08:30→10:36)
[2017-09-09] MEDS ORDERED: NON-FORMULARY ITEM (Pravastatin Sodium [Pravachol] 10 MG) PO SCH (10:00)
[2017-09-09] MEDS ORDERED: NON-FORMULARY ITEM (Omeprazole 20 Mg [Prilosec 20 Mg] 20 MG) PO SCH (10:00)
[2017-09-09] MEDS ORDERED: NON-FORMULARY ITEM (Multivitamin [Multivitamins] 1 EACH) PO SCH (10:00)
[2017-09-09] MEDS ORDERED: BABY ASPIRIN 81 MG CHEW PO SCH (10:00)
[2017-09-09] MEDS ORDERED: GABAPENTIN 600 MG PO SCH (10:00)
[2017-09-09] MEDS: ECOTRIN 81 MG PO SCH (10:29)
[2017-09-09] MEDS: CLARITIN 10 MG PO SCH (10:29)
[2017-09-09] MEDS: Zocor 10MG PO SCH (10:29)
[2017-09-09] MEDS: THERAGRAN MULTIVITAMIN PO SCH (10:29)
[2017-09-09] MEDS: NEURONTIN 300 MG PO SCH ×3 (10:29→21:06)
[2017-09-09] MEDS: MAG-OX 400 PO SCH ×2 (10:29→21:05)
[2017-09-09] MEDS: Protonix 40MG Tablet PO SCH (10:29)
[2017-09-09] MEDS: ENOXAPARIN SODIUM SQ SCH (10:30)
[2017-09-09] MEDS ORDERED: NovoLOG Insulin SQ PRN (13:04)
[2017-09-09] MEDS: Advair Hfa 230/21 Mcg COMMON CANISTER IH SCH ×2 (13:06→21:43)
[2017-09-09] MEDS ORDERED: Lantus Insulin SQ ONE (13:30)
[2017-09-09 15:18] LABS: ANION GAP 16.8 MEQ/L (5-15); Calcium 8.1 mg/dL (8.5-10.1); Carbon Dioxide 16.8 mEq/L (21-32); Creatinine 1 1.68 mg/dl (0.55-1.30); Potassium 5.3 mEq/L (3.5-5.1)
[2017-09-09] MEDS ORDERED: NOVOLIN R INSULIN (FOR DRIPS)** 100 UNITS in Sodium Chloride 0.9% 100 ML IVPB 100 ML IV PRN (16:11)
[2017-09-09 20:15] LABS: ANION GAP 14.5 MEQ/L (5-15); Carbon Dioxide 18.8 mEq/L (21-32); Creatinine 1 1.46 mg/dl (0.55-1.30)
[2017-09-09] MEDS: ROCEPHIN 1 Gm-D5w 50 ml Bag** 1 G/50 ML IVPB IV SCH (20:58)
[2017-09-09] MEDS: Cymbalta 30 MG Capsule PO SCH (21:05)
[2017-09-09] MEDS: DUONEB 0.5-3 MG/3 ml Neb IH PRN (21:57)
[2017-09-09] MEDS: NACL IV SCH (21:58)
[2017-09-09] MEDS: ZITHROMAX IV SCH (21:58)
[2017-09-09] MEDS: TYLENOL 325 MG PO PRN (22:33)
[2017-09-10 00:40] LABS: ANION GAP 15.1 MEQ/L (5-15); Calcium 7.8 mg/dL (8.5-10.1); Carbon Dioxide 16.3 mEq/L (21-32); Creatinine 1 1.28 mg/dl (0.55-1.30)
[2017-09-10] MEDS: Sodium Chloride 0.9% 1000 ML 1,000 ML IV SCH ×3 (03:53→21:44)
[2017-09-10 04:05] LABS: ANION GAP 14.9 MEQ/L (5-15); Carbon Dioxide 17.8 mEq/L (21-32); Creatinine 1 1.2 mg/dl (0.55-1.30); Potassium 4.9 mEq/L (3.5-5.1)
[2017-09-10] MEDS: TYLENOL 325 MG PO PRN (07:10)
[2017-09-10 07:51] LABS: Calcium 8.2 mg/dL (8.5-10.1); Carbon Dioxide 19.8 mEq/L (21-32); Creatinine 1 1.23 mg/dl (0.55-1.30); Potassium 5.2 mEq/L (3.5-5.1)
[2017-09-10] MEDS ORDERED: NovoLOG Insulin SQ PRN (08:57)
--- NOTE | 2017-09-10 09:08 | PCM.NOTE ---
Date and Time: 09/10/17 0900 Subjective Assessment: Patient reports that she feels much better. She would like to try to eat this AM and feels hungry. She denies abdominal pain. She continues to have some cough. She reports she had a little headache which they gave her tylenol for and this helped. - Review of Systems Constitutional: No Symptoms Eyes: No Symptoms Ears, Nose, & Throat: No Symptoms Respiratory: Cough, Wheezing Cardiac: No Symptoms Abdominal/Gastrointestinal: No Symptoms Genitourinary Symptoms: No Symptoms Musculoskeletal: No Symptoms Skin: No Symptoms Objective Exam General Appearance: no apparent distress, alert Neurologic Exam: alert, cooperative, normal mood/affect Skin Exam: normal color, warm, dry, No rash Respiratory Exam: wheezing, other (scattered wheezing throughout, equal breath sounds, no crackles, no rhonchi.) Cardiovascular Exam: regular rate/rhythm, normal heart sounds, No murmur, No friction rub, No gallop Gastrointestinal/Abdomen Exam: soft, normal bowel sounds, No tenderness, No distention, No mass Extremity Exam: other (no c/c/e) OBJECTIVE DATA Vital Signs: Vital Signs - 24 hr Temp Pulse Resp BP Pulse Ox 09/10/17 07:55 98.8 F 94 H 23 141/64 95 09/10/17 07:53 94 H 09/10/17 04:51 107 H 09/10/17 04:00 98.1 F 107 H 20 143/73 99 09/10/17 01:00 97 H 09/09/17 23:26 98.4 F 113 H 22 132/62 98 09/09/17 21:57 99 09/09/17 21:43 97 H 19 99 09/09/17 21:00 98.2 F 79 26 H 137/74 99 09/09/17 16:20 98.3 F 103 H 17 143/68 95 09/09/17 16:18 103 H 09/09/17 13:48 109 H 20 140/79 98 09/09/17 13:00 104 H 09/09/17 11:00 98 F 104 H 20 169/73 98 09/09/17 10:00 100 H 18 100 Pain Assessment - Last Documented Pain Intensity 6 Pain Scale Used 0-10 Pain Scale Intake and Output: Intake & Output 09/08/17 09/09/17 09/10/17 09/11/17 06:59 06:59 06:59 06:59 Intake Total 719 5322 Output Total 700 1890 Balance 19 2672 Weight 77 kg Lab Results: Accuchecks 09/10/1709/10/1709/10/1709/10/1709/10/1709/10/1709/10/1709/10/1709/09/1709/09/1709/09/1709/09/1709/09/1709/09/1709/09/1709/09/1709/09/17 Time 07:30 Time 06:27 Time 05:28 Time 04:00 Time 03:00 Time 01:14 Time 00:30 Time 00:15 Time 23:00 Time 22:04 Time 20:39 Time 19:30 Time 18:27 Time 17:25 Time 15:55 Time 13:00 Time 12:45 Accucheck Value: 95 Accucheck Value: 97 Accucheck Value: 123 Accucheck Value: 111 Accucheck Value: 117 Accucheck Value: 213 Accucheck Value: 236 Accucheck Value: 225 Accucheck Value: 190 Accucheck Value: 253 Accucheck Value: 315 Accucheck Value: 403 Accucheck Value: 428 Accucheck Value: 507 Accucheck Value: 458 Accucheck Value: 459 Lab Results-Last 24 Hours 09/09/17 09/09/17 09/09/17 Range/Units 00:05 08:35 08:35 Sodium 125 L (136-145) mEq/L Potassium 5.0 5.5 H (3.5-5.1) mEq/L Chloride 99 (98-107) mEq/L Carbon Dioxide 16.3 L (21-32) mEq/L Anion Gap 15.1 H (5-15) MEQ/L BUN 30 H (9-20) mg/dL Creatinine 1.28 (0.55-1.30) mg/dl Estimated GFR 47 ML/MIN Glucose 240 H (70-110) MG/DL Calcium 7.8 L (8.5-10.1) mg/dL Creatine Kinase (26-192) U/L Troponin I < 0.017 (0.000-0.056) ng/ml 09/09/17 09/09/17 09/09/17 Range/Units 08:44 14:15 19:40 Sodium 127 L 127 L (136-145) mEq/L Potassium 5.3 H 5.0 (3.5-5.1) mEq/L Chloride 99 99 (98-107) mEq/L Carbon Dioxide 16.8 L 18.8 L (21-32) mEq/L Anion Gap 16.8 H 14.5 (5-15) MEQ/L BUN 26 H 29 H (9-20) mg/dL Creatinine 1.68 H 1.46 H (0.55-1.30) mg/dl Estimated GFR 34 40 ML/MIN Glucose 537 H* 315 H (70-110) MG/DL Calcium 8.1 L 8.0 L (8.5-10.1) mg/dL Creatine Kinase 40 (26-192) U/L Troponin I (0.000-0.056) ng/ml 09/10/17 09/10/17 Range/Units 03:45 07:27 Sodium 129 L 132 L (136-145) mEq/L Potassium 4.9 5.2 H (3.5-5.1) mEq/L Chloride 101 104 (98-107) mEq/L Carbon Dioxide 17.8 L 19.8 L (21-32) mEq/L Anion Gap 14.9 13.0 (5-15) MEQ/L BUN 29 H 29 H (9-20) mg/dL Creatinine 1.20 1.23 (0.55-1.30) mg/dl Estimated GFR 51 49 ML/MIN Glucose 108 99 (70-110) MG/DL Calcium 8.0 L 8.2 L (8.5-10.1) mg/dL Creatine Kinase (26-192) U/L Troponin I (0.000-0.056) ng/ml Radiology Exams: Radiology Procedures Category Date Time Status CHEST 2 VIEWS (PA AND LAT) Routine Exams 09/10/17 Ordered Multi-Disciplinary Progress Notes: Multi-Disciplinary Progress Notes 09/09/17 10:57 Case Management Note by Milagros Powell DISCHARGE PLAN REVIEWED WITH PT. NORMALLY LIVES AT HOME WITH HER CHILDREN AND HAS AVAILABLE A WALKER, CANE, WHEELCHAIR, AND DIABETIC TESTING DEVICE. SHE HAS HOME PHYSICAL THERAPY ONCE WEEKLY WITH [facility]. PT DENIES NEED FOR ANY OTHER SERVICE/DME AT HOME. IMPORTANT PAPERS FROM [employer] EXPLAINED, SIGNED AND COPY GIVEN TO PT WITH ORIGINALS ON THE CHART. PLAN TO RETUN HOME TO PRE EPISODIC LEVEL OF FUNCTION. WILL CONTINUE TO MONITOR FOR ALL D/C NEEDS. Initialized on 09/09/17 10:57 - END OF NOTE Assessment/Plan (1) Diabetes type 2, controlled Current Visit: Yes Status: Acute Qualifiers: Diabetes mellitus complication status: with hyperglycemia Assessment & Plan: She initially came in with hypoglycemia and hypothermia. She was started on IV steroids for her breathing and insulin was held. Her blood glucoses then reached 500's despite 12 units of novolog and 20 units of lantus that were given once her blood glucose started to rise. Patient is unsure how much insulin she is on through her pump and says her Paper Pattern Folder, Dr. Roger, programs this. She says she gives herself the 50 units of lantus only if she eats. I had her on an insulin drip overnight as I was not sure how much insulin she usually requires. While on the drip, her nurses state she got 47 units. So yesterday she had a total of 79 units (47 on the drip, 20 units of lantus at 1400 on 09/09/17 and 12 units of novolog). Code(s): E11.9 - TYPE 2 DIABETES MELLITUS WITHOUT COMPLICATIONS (2) COPD with exacerbation Current Visit: Yes Status: Acute Assessment & Plan: Continue breathing treatments and IV antibiotics Day 2. Currently off IV steroids due to hyperglycemia, brittle diabetes. Check Chest X-ray. Code(s): J44.1 - CHRONIC OBSTRUCTIVE PULMONARY DISEASE W (ACUTE) EXACERBATION (3) Hyponatremia Current Visit: Yes Status: Acute Assessment & Plan: Appears to be chronic. May be related to her underlying liver disease. Continue to monitor. Check cortisol level in AM. Code(s): E87.1 - HYPO-OSMOLALITY AND HYPONATREMIA (4) Dehydration Current Visit: Yes Status: Acute Assessment & Plan: Resolving. Continue Normal saline at 80 mL/hr. Code(s): E86.0 - DEHYDRATION (5) Hyperkalemia Current Visit: Yes Status: Acute Assessment & Plan: K currently 5.2. Continue to monitor. Code(s): E87.5 - HYPERKALEMIA (6) Cirrhosis Current Visit: No Status: Chronic (7) Anemia of chronic disease Current Visit: Yes Status: Acute Assessment & Plan: Check CBC today. Code(s): D63.8 - ANEMIA IN OTHER CHRONIC DISEASES CLASSIFIED ELSEWHERE
[2017-09-10 09:35] LABS: Basophil (Absolute #) 0 (0-0.4); Eosinophil (Absolute #) 0 (0-0.5); Granulocyte Absolute (ANC) 4.36 (1.4-6.9); Hematocrit 25.8 % (35-47); Hemoglobin 8.2 gm/dl (12.0-16.0); Lymphocyte (Absolute #) 0.76 (1.0-4.6); Lymphocytes % 13.6 % (24.0-44.0); Mean Cell Volume 81.9 fl (78-100); Mean Corpuscular Hgb Concent. 31.8 g/dl (32-36); Mean Platelet Volume 9.2 fl (6-9.5); Monocyte (Absolute #) 0.47 (0.0-1.3); Monocytes % 8.4 % (0.0-12.0); Platelet Count 147 K/mm3 (150-450); Red Blood Count 3.15 M/mm3 (4.1-5.4); Red Cell Distribution Width 14.9 % (11.5-14.0); White Blood Count 5.6 K/mm3 (4.0-10.5)
[2017-09-10] MEDS: Protonix 40MG Tablet PO SCH (10:27)
[2017-09-10] MEDS: Zocor 10MG PO SCH (10:27)
[2017-09-10] MEDS: THERAGRAN MULTIVITAMIN PO SCH (10:27)
[2017-09-10] MEDS: MAG-OX 400 PO SCH ×2 (10:27→21:43)
[2017-09-10] MEDS: CLARITIN 10 MG PO SCH (10:27)
[2017-09-10] MEDS: NEURONTIN 300 MG PO SCH ×3 (10:27→21:43)
[2017-09-10] MEDS: ECOTRIN 81 MG PO SCH (10:27)
[2017-09-10] MEDS: ENOXAPARIN SODIUM SQ SCH (10:27)
[2017-09-10] MEDS: Advair Hfa 230/21 Mcg COMMON CANISTER IH SCH ×2 (11:26→18:40)
[2017-09-10] MEDS: NovoLOG Insulin SQ SCH ×2 (11:51→16:30)
[2017-09-10] MEDS: Lantus Insulin SQ SCH (13:43)
--- NOTE | 2017-09-10 20:10 | XRAY ---
Indication: COPD. Comparison: September 08, 2017. PA/lateral chest hyperinflated today with bibasilar infiltrate/atelectasis, stable on the right and new on the left. Remaining heart and lungs unremarkable. Comment: Preliminary interpretation was made by [facility]. No discrepancy.
[2017-09-10] MEDS: ZITHROMAX IV SCH (21:43)
[2017-09-10] MEDS: Cymbalta 30 MG Capsule PO SCH (21:43)
[2017-09-10] MEDS: NACL IV SCH (21:43)
[2017-09-10] MEDS: ROCEPHIN 1 Gm-D5w 50 ml Bag** 1 G/50 ML IVPB IV SCH (21:44)
[2017-09-11] MEDS: Sodium Chloride 0.9% 1000 ML 1,000 ML IV SCH ×2 (01:49→07:43)
[2017-09-11 06:04] LABS: Granulocyte Absolute (ANC) 2.56 (1.4-6.9); Hematocrit 25.7 % (35-47); Mean Cell Volume 82.4 fl (78-100); Mean Corpuscular Hemoglobin 25.6 pg (26-32); Mean Corpuscular Hgb Concent. 31.1 g/dl (32-36); Mean Platelet Volume 8.6 fl (6-9.5); Platelet Count 130 K/mm3 (150-450); Red Blood Count 3.12 M/mm3 (4.1-5.4); Red Cell Distribution Width 14.8 % (11.5-14.0)
[2017-09-11 06:27] LABS: ANION GAP 14.4 MEQ/L (5-15); Calcium 8.1 mg/dL (8.5-10.1); Carbon Dioxide 20.2 mEq/L (21-32); Creatinine 1 1.23 mg/dl (0.55-1.30); Potassium 5.5 mEq/L (3.5-5.1)
[2017-09-11 07:18] LABS: ANISOCYTOSIS 1+; Lymphocytes 18 % (24-44); Monocyte 6 % (0.0-12.0); Neutrophils 76 % (36.0-66.0); Platelet Estimate NORMAL (NORMAL); Poikilocytosis 1+; Total Cells Counted 100
[2017-09-11] MEDS: NovoLOG Insulin SQ SCH ×3 (07:42→17:46)
[2017-09-11] MEDS: Lantus Insulin SQ SCH (07:42)
[2017-09-11] MEDS: Advair Hfa 230/21 Mcg COMMON CANISTER IH SCH ×2 (07:50→17:44)
--- NOTE | 2017-09-11 08:41 | PCM.NOTE ---
Date and Time: 09/11/17 0840 Subjective Assessment: still very weak coughing and feels short of breath sugar better controlled now off the drip since yesterday Objective Exam General Appearance: no apparent distress, alert, obese Neurologic Exam: alert, 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, cooperative, normal mood/affect, sensation nml, No motor deficits Skin Exam: normal color, warm, dry Eye Exam: PERRL, EOMI, eyes nml inspection Ears, Nose, Throat Exam: normal ENT inspection, moist mucous membranes Neck Exam: normal inspection, non-tender, supple, full range of motion Respiratory Exam: crackles/rales (bibasilar), rhonchi, wheezing, No respiratory distress Cardiovascular Exam: regular rate/rhythm, normal heart sounds Gastrointestinal/Abdomen Exam: soft, No tenderness, No mass Extremity Exam: normal range of motion, other (chronic left foot deformity) Back Exam: normal inspection, No CVA tenderness, No vertebral tenderness Pelvic Exam: deferred Rectal Exam: deferred OBJECTIVE DATA Vital Signs: Vital Signs - 24 hr Temp Pulse Resp BP Pulse Ox 09/11/17 08:00 98.5 F 101 H 18 157/77 96 09/11/17 07:52 103 H 20 95 09/11/17 04:00 97.8 F 101 H 20 155/74 97 09/11/17 00:00 98.6 F 105 H 20 175/78 95 09/10/17 21:00 97 09/10/17 20:00 97.8 F 103 H 24 155/70 96 09/10/17 18:49 95 H 18 97 09/10/17 16:00 98.5 F 104 H 18 120/62 99 09/10/17 15:00 90 09/10/17 11:47 98.2 F 90 20 140/67 97 09/10/17 11:26 87 18 98 09/10/17 10:30 92 H Pain Assessment - Last Documented Pain Intensity 0 Pain Scale Used 0-10 Pain Scale Intake and Output: Intake & Output 09/08/17 09/09/17 09/10/17 09/11/17 11:59 11:59 11:59 11:59 Intake Total 1559 4482 4369 Output Total 700 8045 0380 Balance 568 812 0934 Weight 77 kg 83.3 kg Lab Results: Accuchecks Date 01/08/09/10/17 Date 09/10/17 Date 09/10/17 Time 07:43 Time 21:00 Time 16:25 Time 11:46 Accucheck Value: 85 Accucheck Value: 173 Accucheck Value: 195 Accucheck Value: 125 Lab Results-Last 24 Hours 09/10/17 09/11/17 09/11/17 Range/Units 07:30 05:50 05:50 WBC 5.6 4.0 (4.0-10.5) K/mm3 RBC 3.15 L 3.12 L (4.1-5.4) M/mm3 Hgb 8.2 L 8.0 L (12.0-16.0) gm/dl Hct 25.8 L 25.7 L (35-47) % MCV 81.9 82.4 (78-100) fl MCH 26.0 25.6 L (26-32) pg MCHC 31.8 L 31.1 L (32-36) g/dl RDW 14.9 H 14.8 H (11.5-14.0) % Plt Count 147 L 130 L (150-450) K/mm3 MPV 9.2 8.6 (6-9.5) fl Gran % 78.0 H (36.0-66.0) % Lymphocytes % 13.6 L (24.0-44.0) % Monocytes % 8.4 (0.0-12.0) % Eosinophils % 0.0 (0.00-5.0) % Basophils % 0.0 (0.0-0.4) % Segmented Neutrophils 76 H (36.0-66.0) % Lymphocytes (Manual) 18 L (24-44) % Monocytes (Manual) 6 (0.0-12.0) % Basophils # 0 (0-0.4) Differential Comment ABNORMAL Platelet Estimate NORMAL (NORMAL) Poikilocytosis 1+ Anisocytosis 1+ Sodium 133 L (136-145) mEq/L Potassium 5.5 H (3.5-5.1) mEq/L Chloride 104 (98-107) mEq/L Carbon Dioxide 20.2 L (21-32) mEq/L Anion Gap 14.4 (5-15) MEQ/L BUN 25 H (9-20) mg/dL Creatinine 1.23 (0.55-1.30) mg/dl Estimated GFR 49 ML/MIN Glucose 96 (70-110) MG/DL Calcium 8.1 L (8.5-10.1) mg/dL Radiology Exams: Radiology Procedures Category Date Time Status CHEST 2 VIEWS (PA AND LAT) Routine Exams 09/10/17 11:00 Completed Assessment/Plan (1) COPD with exacerbation Current Visit: Yes Status: Acute Assessment & Plan: with the evolving bibasilar likely pneumonia and her presentation with the hypoglycemia ams will change coverage for possible aspiration if doing well tomorrow on this could go home on Augmentin then she still has the hyperkalemia repeat in am monitor glucose levels Code(s): J44.1 - CHRONIC OBSTRUCTIVE PULMONARY DISEASE W (ACUTE) EXACERBATION (2) Pneumonia Current Visit: Yes Status: Acute Qualifiers: Laterality: right Code(s): J18.9 - PNEUMONIA, UNSPECIFIED ORGANISM (3) Hyperkalemia Current Visit: Yes Status: Acute Code(s): E87.5 - HYPERKALEMIA (4) Anemia of chronic disease Current Visit: Yes Status: Acute Code(s): D63.8 - ANEMIA IN OTHER CHRONIC DISEASES CLASSIFIED ELSEWHERE (5) Diabetes mellitus type 2, uncontrolled Current Visit: Yes Status: Acute Qualifiers: Diabetes mellitus complication status: with skin complications Diabetes mellitus complication detail: with foot ulcer 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
[2017-09-11] MEDS: Unasyn 3GM / NaCl 100ML 3 GM/100 ML IVPB IV SCH ×4 (09:01→22:49)
--- NOTE | 2017-09-11 09:03 | HP ---
HISTORY OF PRESENT ILLNESS: This is a 52 year-old patient who was brought in by ambulance. The patient states she does not recall what happened but the emergency room note said that she was found by her family unresponsive and that they tried to give her a dose of Glucagon. When EMS arrived her blood sugar was 33. The emergency room note stated that she was minimally responsive. In the emergency department her temperature was found to be 91.2F rectally. The patient reports that the last time she remembers checking her blood sugar it was 167 at approximately 1430 hours in the afternoon. She laid down because she had a stomach ache which she stated she had for a couple of days and also had vomiting x2 days. She uses an insulin pump that Dr. Roger prescribes and on her medicine list was also Lantus but it said she last took that on 09/05/2017. She reports she used to have problem with hypoglycemia when she was on U500 but she was changed to Humalog three months ago. She does not think she had any U500 left that she could have gotten confused with. She reports she remembers being in the emergency department. She states that her home does have heat and quite a few people live at home including her daughter, her daughter's boyfriend, the patient's friend, the friend's child and a grandson and the friend's uncle. She reports she sleeps with a fan on her year round. She reports that she has a visiting nurse that told her that her lungs sounded bad yesterday and she has an appointment scheduled to see Dr. Dante Barrett this coming Monday. REVIEW OF SYSTEMS: She denies any diarrhea. She states she has had a decreased appetite and could not eat but did adjust her insulin pump for this. She reports a cough for months productive of a little bit of phlegm. She denies any fever. She states she has been urinating well. She had some sinus headaches but not now. She denies any rashes. PAST MEDICAL HISTORY: Diabetes mellitus type [address] Roger. Diabetic neuropathy. History of chronic left foot problems. Cirrhosis with history of paracentesis she reports three years ago. She sees Dr. Valencia for this as well as a doctor in [place]. History of chronic obstructive pulmonary disease and asthma. She does not wear oxygen at home. No history of coronary artery disease. No history of congestive heart failure. PAST SURGICAL HISTORY: section x3, cholecystectomy, tonsillectomy, hysterectomy, exploratory surgery. Ten surgeries on her left foot. MEDICATIONS: Albuterol 2 puffs every three hours as needed, aspirin 81 mg daily, Symbicort 2 puffs b.i.d. 160/4.5 mcg, Cymbalta 600 mg p.o. q.h.s., Furosemide 40 mg p.o. daily, gabapentin 600 mg p.o. t.i.d., Lantus 50 units subcutaneously h.s., Humalog insulin pump per sliding scale, loratadine 10 mg p.o. daily, magnesium oxide 800 mg p.o. b.i.d., multivitamin 1 tablet daily, omeprazole 20 mg daily, Pravastatin 10 mg daily, ALLERGIES: ADHESIVE BANDAGE, BEE STINGS. SOCIAL HISTORY: She reports she smokes one-half pack per day. She denies need for nicotine patch. She denies any alcohol or illicit drug use. She lives at home with individuals as mentioned in history of present illness. FAMILY HISTORY: Her mother is and had a brain aneurysm. Her father is living and is healthy. PHYSICAL EXAMINATION: VITAL SIGNS: Temperature current 97.7F, temperature max 99.5F, however it was 91.2F, heart rate 78 to 101 currently 101, respiratory rate 16 to 36 currently 19, blood pressure 115 to 149 over 60 to 82, weight 77 kg. Oxygen saturation 96 to 100% on 2 liters to nonrebreather. She is currently 100% on 1 liter nasal cannula. GENERAL: The patient is lying in bed and a pleasant talkative lady. She is alert and oriented x3. HEENT: Her pupils equal and reactive to light. Her mount is moist. There is no erythema or exudate. NECK: Supple without any lymphadenopathy. CVS: Her heart has a regular rate and rhythm. No murmurs, gallops or rubs are appreciated. CHEST: She has a few scattered wheezes. ABDOMEN: Obese, soft, nontender, nondistended. No hepatosplenomegaly. EXTREMITIES: She has marked deformity of her left foot with old surgical scars. No clubbing, cyanosis or edema. SKIN: Warm, dry and intact. LABORATORY DATA AND TESTS: Her hemoglobin was 10.6. Chest x-ray was read as right base infiltrate versus atelectasis. Please see the radiologist dictation for the full report. EKG 09/08/2017 at 2022 hours was normal sinus rhythm with a heart rate of 81, no ST-T wave changes. ASSESSMENT AND PLAN: 1) HYPOGLYCEMIA: She was given an amp of D50 in the emergency department. Currently her blood sugar is 207. Her insulin pump was removed in the emergency room. Her Lantus is being held. We are using a low dose sliding scale of NovoLog right now. The hypoglycemia most likely contributed to the hypothermia. The patient will need to be followed up closely when she is discharged by her judge's clerk. 2) HYPOTHERMIA: This resolved with the use of a Bear hugger overnight. Her temperature is currently normal, will continue to monitor this closely. 3) DEHYDRATION: She has been getting normal saline at 100 ml/hour. Carbon dioxide is18.7 this morning and I will give her 500 ml normal saline bolus and continue with her fluids at 100 ml/hour, monitor her ins and outs closely. 4) DIABETES MELLITUS TYPE 2: Again she is on a low dose sliding scale right now. She will need to follow up closely with Dr. Roger as an outpatient. Her hemoglobin A1C was 7.8. 5) ANEMIA: Her hemoglobin was 10.6 on admission. MCV was normal. Most likely this is anemia of chronic disease. 6) CIRRHOSIS: Appears to be stable at this point. She follows up as an outpatient with a specialist. 7) HYPONATREMIA: I looked back at her labs and she has a baseline sodium of 130 which is where she is at this morning. Continue with the normal saline and IV fluids. 8) HYPERKALEMIA: Potassium is 6.0 this morning. Her potassium yesterday was 4.3. Her creatinine is 1.22 which is at her baseline. She is not on any potassium supplements and has not received any potassium through her IV. I am going to ask them to redraw this to check and make sure it is not a lab error. 9) PNEUMONIA: She has been started on ceftriaxone and azithromycin which we will continue. Right lower lung is where the pneumonia is located. 10) CHRONIC OBSTRUCTIVE PULMONARY DISEASE EXACERBATION: Will continue with breathing treatments. She has been started on IV steroids, oxygen as needed and will continue with close monitoring. 11) DEEP VENOUS THROMBOSIS PROPHYLAXIS: Will start her on Lovenox and JESUS hose.
[2017-09-11] MEDS: THERAGRAN MULTIVITAMIN PO SCH (09:27)
[2017-09-11] MEDS: ENOXAPARIN SODIUM SQ SCH (09:27)
[2017-09-11] MEDS: NEURONTIN 300 MG PO SCH ×3 (09:27→22:49)
[2017-09-11] MEDS: Protonix 40MG Tablet PO SCH (09:27)
[2017-09-11] MEDS: ECOTRIN 81 MG PO SCH (09:28)
[2017-09-11] MEDS: CLARITIN 10 MG PO SCH (09:28)
[2017-09-11] MEDS: Zocor 10MG PO SCH (09:28)
[2017-09-11] MEDS: MAG-OX 400 PO SCH ×2 (09:30→22:49)
[2017-09-11] MEDS: TYLENOL 325 MG PO PRN (10:33)
[2017-09-11] MEDS: Cymbalta 30 MG Capsule PO SCH (22:49)
[2017-09-12] MEDS: Unasyn 3GM / NaCl 100ML 3 GM/100 ML IVPB IV SCH (05:14)
[2017-09-12] MEDS: Advair Hfa 230/21 Mcg COMMON CANISTER IH SCH (07:46)
[2017-09-12] MEDS: DUONEB 0.5-3 MG/3 ml Neb IH PRN (07:46)
[2017-09-12] MEDS: NovoLOG Insulin SQ SCH (07:56)
[2017-09-12 08:17] LABS: Calcium 8.1 mg/dL (8.5-10.1); Carbon Dioxide 21.5 mEq/L (21-32); Creatinine 1 1.37 mg/dl (0.55-1.30); Potassium 4.9 mEq/L (3.5-5.1)
--- NOTE | 2017-09-12 08:19 | PCM.DS ---
Discharge Summary Date of Admission: 09/08/17 23:17 Date of Discharge: 09/12/2017 Admitting Physician: ROSELIA BOWER Primary Care Provider: ROSELIA BOWER Allergies Allergies adhesive tape Allergy (Mild, Verified 09/08/17 23:51) Hives bee stings Allergy (Mild, Uncoded 04/19/17 17:44) [facility] Summary - Hospital Course Hospital Course: Ms. Bonilla lives at home and follows with Dr. Roger for her insulin mgmt and was suffering from an exacerbation of her COPD from a viral influenza like illness when she was not eating well and went to sleep and woke up in the hospital after her friend found her unresponsive. SHe had glucose of 31. She was treated and improved then developed severe hyperglycemia and was placed on insulin gtt. SHe was taken off this 09/10 and transitioned to subcutaneous insulin and was doing well with sugar well controlled and tolerating po well. Her breathing however continued to give her trouble and there were developing lower lobe infiltrates bilaterally. On admission she was treated with ceftriaxone and azithromycin with the evolving symptoms and her lack of improvement and concern for possible aspiration given her presentation with ams she was changed to unasyn iv and showed improvement. SHe was not requiring O2. SHe has home health arranged and is discharged to continue her neb treatments and start augmentin. She will f/u with Dr. Roger on her blood sugars as well. - Vitals & Intake/Output Vital Signs: Vital Signs Temperature 98.6 F 09/12/17 07:31 Pulse Rate 95 H 09/12/17 07:46 Respiratory Rate 20 09/12/17 07:46 Blood Pressure 154/65 09/12/17 07:31 O2 Sat by Pulse Oximetry 95 09/12/17 07:46 Oxygen-Last Documented O2 Percentage 1 Liter = 24% Intake & Output: Intake & Output 09/09/17 09/10/17 09/11/17 09/12/17 11:59 11:59 11:59 11:59 Intake Total 1559 4482 4369 1621 Output Total 700 3825 2050 Balance 240 400 4572 1621 Weight 77 kg 83.3 kg 82.1 kg - Lab Result Diagrams: 09/11/17 05:50 09/12/17 05:25 Lab Results-Last 24 Hrs: Accuchecks Date 09/11/17 Date 09/11/17 Time 22:00 Time 11:25 Accucheck Value: 146 Accucheck Value: 116 Accucheck Value: 170 Micro Results-Entire Visit: Accuchecks Date 09/11/17 Date 09/11/17 Time 22:00 Time 11:25 Accucheck Value: 146 Accucheck Value: 116 Accucheck Value: 170 - Radiology Exams Ordered Rad Exams-Entire Visit: Radiology Procedures Category Date Time Status CHEST 2 VIEWS (PA AND LAT) Routine Exams 09/10/17 11:00 Completed - Procedures and Test Procedures and Tests throughout Hospitalization: Therapy Orders & Screens 09/08/17 22:18 Respiratory Therapy Consult ROUTINE Comment: Reason For Exam: Diagnosis: Shortness of Breath 09/08/17 22:24 Respiratory Nebulizer STAT Comment: Diagnosis: Shortness of Breath 09/08/17 22:28 Oxygen NASAL CANNULA 2 lpm Comment: Diagnosis: Shortness of Breath 09/08/17 23:45 neb [Respiratory Nebulizer] PRN Comment: Q4PRN Diagnosis: Shortness of Breath 09/09/17 00:42 Smoking Cessation Education ONCE Comment: Diagnosis: Shortness of Breath Smoking Status: Current every day smoker How long have you smoked: 35 years Have you smoked in the past 12 months: Yes Approximately how many cigarettes per day: 10 Do you dip or chew tobacco: No 09/09/17 01:09 Respiratory MDI BID Comment: Diagnosis: Shortness of Breath 09/09/17 10:35 EKG ROUTINE Comment: Diagnosis: hyperkalemia Discharge Exam General Appearance: no apparent distress, alert Neurologic Exam: alert, 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, cooperative, normal mood/affect Skin Exam: normal color, warm, dry Eye Exam: EOMI, eyes nml inspection Ears, Nose, Throat Exam: pharynx normal, moist mucous membranes Neck Exam: normal inspection, non-tender, supple, full range of motion Respiratory Exam: crackles/rales, rhonchi, wheezing Cardiovascular Exam: regular rate/rhythm, normal heart sounds Gastrointestinal/Abdomen Exam: soft, No tenderness, No mass Extremity Exam: other (left foot chronic deformity mild edema no open wounds) Back Exam: normal inspection, normal range of motion, No CVA tenderness, No vertebral tenderness Pelvic Exam: deferred Rectal Exam: deferred Final Diagnosis/Problem List - Final Discharge Diagnosis/Problem (1) COPD with exacerbation Status: Acute (2) Pneumonia Status: Acute (3) Hyperkalemia Status: Acute (4) Anemia of chronic disease Status: Acute (5) Diabetes mellitus type 2, uncontrolled Status: Acute (6) Hypoglycemia associated with diabetes Status: Acute - Discharge Discharge Date: 09/12/17 Disposition: Home Health @ Other In State Condition: Fair Prescriptions: New Amoxicillin/Potassium Clav [Augmentin 875-125 Tablet] 1 each PO BID #12 tablet Continue Multivitamin [Multivitamins] 1 each PO DAILY Duloxetine HCl 30 mg [Cymbalta 30 MG Capsule] 60 mg PO HS Aspirin 81 gm Chew [Baby Aspirin 81 mg Chew] 81 mg PO DAILY Omeprazole 20 MG [Prilosec 20 mg] 20 mg PO DAILY Budesonide/Formoterol Fumarate [Symbicort 160-4.5 Mcg Inhaler] 2 puff IH BID Albuterol Sulfate [Proair Hfa] 2 puff IH Q3H/PRN PRN PRN Reason: RESP Pravastatin Sodium [Pravachol] 10 mg PO DAILY Loratadine 10 mg [Claritin 10 mg] 10 mg PO DAILY Gabapentin [Gralise] 600 mg PO TID Furosemide 40 mg [Lasix 40 MG] 40 mg PO DAILY Magnesium Oxide 400 mg [Mag-Ox 400] 800 mg PO BID Insulin Lispro [Humalog] 0 unit SQ AC Discontinued Insulin Glargine,Hum.rec.anlog [Lantus Solostar] 50 unit SQ HS Instructions: Pneumonia in Adults, Type 2 Diabetes, Exacerbation of COPD Additional Instructions: Resume home health services [facility] WILL FOLLOW ON DISCHARGE. THEY ARE AWARE OF YOUR DISCHARGE AND WILL CALL YOU TO ARRANGE YOUR NEXT APPOINTMENT. Follow up with: ROSELIA BOWER [Primary Care Provider] - 09/19/17 9:45 am
[2017-09-12] MEDS: ECOTRIN 81 MG PO SCH (08:35)
[2017-09-12] MEDS: CLARITIN 10 MG PO SCH (08:35)
[2017-09-12] MEDS: Lantus Insulin SQ SCH (08:35)
[2017-09-12] MEDS: ENOXAPARIN SODIUM SQ SCH (08:35)
[2017-09-12] MEDS: Zocor 10MG PO SCH (08:36)
[2017-09-12] MEDS: MAG-OX 400 PO SCH (08:36)
[2017-09-12] MEDS: THERAGRAN MULTIVITAMIN PO SCH (08:36)
[2017-09-12] MEDS: NEURONTIN 300 MG PO SCH (08:36)
[2017-09-12] MEDS: Protonix 40MG Tablet PO SCH (08:42)
[2017-09-12 10:59] VITALS: BP 150/62; PULSE 76; O2SAT 92
== END 2017-09-12 11:00 | disposition home health service (06) | DRG 194 ==
LOC: ED 19:41 → ICU 23:17 → MED SURG 09-11 18:30
PROVIDERS: ADMIT Family Medicine; ATTEND Family Medicine
DX: J18.9 Pneumonia, unspecified organism (principal); E11.65 Type 2 diabetes mellitus with hyperglycemia; J44.1 Chronic obstructive pulmonary disease with (acute) exacerbation; T68.XXXA Hypothermia, initial encounter; K74.60 Unspecified cirrhosis of liver; I10 Essential (primary) hypertension; J44.9 Chronic obstructive pulmonary disease, unspecified; F41.8 Other specified anxiety disorders; K21.9 Gastro-esophageal reflux disease without esophagitis; E87.1 Hypo-osmolality and hyponatremia; Z79.4 Long term (current) use of insulin; E87.5 Hyperkalemia; E86.0 Dehydration; D63.8 Anemia in other chronic diseases classified elsewhere; E11.649 Type 2 diabetes mellitus with hypoglycemia without coma; J45.909 Unspecified asthma, uncomplicated; E11.40 Type 2 diabetes mellitus with diabetic neuropathy, unspecified; E11.621 Type 2 diabetes mellitus with foot ulcer; L97.509 Non-pressure chronic ulcer of other part of unspecified foot with unspecified severity; Z79.899 Other long term (current) drug therapy; Z72.0 Tobacco use
CPT/HCPCS: 36000; 36415; 51702; 71045; 71046; 80048; 80053; 80307; 81000; 82533; 82550; 82805; 82962; 83036; 83605; 83735; 83880; 84132; 84484; 85025; 85610; 87040; 87086; 93005; 93041; 94640; 94760; 96360; 96361; 96365; 96366; 96374; 99291; 99292; J0295; J0456; J0696; J1650; J1815; J2930; A9270-GY

== ENCOUNTER 2019-01-17 16:37 | Inpatient (IN) | payer MEDICARE ==
[2019-01-17] MEDS ORDERED: Sodium Chloride 0.9% 1000 ML 1,000 ML IV STA (16:54)
[2019-01-17] MEDS ORDERED: DUONEB 0.5-3 MG/3 ml Neb IH ONE ×2 (16:56→17:02)
[2019-01-17] MEDS ORDERED: Sodium Chloride 0.9% 1000 ML 1,000 ML ONE (17:00)
--- NOTE | 2019-01-17 17:01 | ERPHSYRPT ---
- History of Present Illness Source: patient, EMS Patient Subjective Stated Complaint: Medics stated "She was found unresponsive with a FSBS 30, we gave 25 g D50 and her sugar came up to 188. He breathing was not very good so we gave her a duo neb tx and her Spo2 improved.". Pt states "I have been coughing and I am just really really sleepy." Triage Nursing Assessment: Pt presented via [facility] through the back doors and placed in room 5. Pt presented alert and oriented X 3, skin pwd. PT had a duo neb tx in place upon arrival. Pt had an 18 g iv in right forearm upon arrival, pt had picc line in her left bicep upon arrival. PT has wound on her left foot that is being cared for prior to arrival. PT able to speak in clear full sentences with intermittant cough. Pt had coarse lung soudns. 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, improved with D50 and narcan, no injury, no emesis, on home oxygen, no fever, pt given solumedrol by ems (NAKUL DOWNING) Allergies/Adverse Reactions: adhesive tape Allergy (Mild, Verified 09/08/17 23:51) Hives bee stings Allergy (Mild, Uncoded 04/19/17 17:44) Hives Home Medications: Aspirin 81 gm Chew [Baby Aspirin 81 mg Chew] 81 mg PO DAILY 11/17/12 [ History] Duloxetine HCl 30 mg [Cymbalta 30 MG Capsule] 60 mg PO HS 11/17/12 [ History] Multivitamin [Multivitamins] 1 each PO DAILY 11/17/12 [History] Albuterol Sulfate [Proair Hfa] 2 puff IH Q3H/PRN PRN 04/21/15 [History] Budesonide/Formoterol Fumarate [Symbicort 160-4.5 Mcg Inhaler] 2 puff IH BID [History] Omeprazole 20 MG [Prilosec 20 mg] 20 mg PO DAILY 04/21/15 [History] Pravastatin Sodium [Pravachol] 10 mg PO DAILY 02/07/16 [History] Furosemide 40 mg [Lasix 40 MG] 40 mg PO DAILY 11/11/16 [History] Gabapentin [Gralise] 600 mg PO TID 11/11/16 [History] Loratadine 10 mg [Claritin 10 mg] 10 mg PO DAILY 11/11/16 [History] Magnesium Oxide 400 mg [Mag-Ox 400] 800 mg PO BID 01/27/17 [History] Insulin Lispro [Humalog] 0 unit SQ AC 09/08/17 [History] - Past Medical History Pertinent Past Medical History: Yes Neurological History: No Pertinent History ENT History: No Pertinent History Cardiac History: Hypertension Respiratory History: Asthma, COPD, Pneumonia Endocrine Medical History: Diabetes Type II Musculoskeletal History: Fractures GI Medical History: GERD, Other History: No Pertinent History Psycho-Social History: Anxiety, Depression Female Reproductive Disorders: No Pertinent History Other Medical History: left ankle fx with mult surgeries. wound center left foot - Past Surgical History Past Surgical History: Yes Neuro Surgical History: No Pertinent History Cardiac: No Pertinent History Respiratory: No Pertinent History Gastrointestinal: Cholecystectomy, Exploratory Laparoscopy Genitourinary: No Pertinent History Musculoskeletal: No Pertinent History Female Surgical History: Section, Hysterectomy Other Surgical History: foot surgery, screw placed in left big toe, removal, and antibiotic beed placement. mult lt foot surgeries - Social History Smoking Status: Current every day smoker How long have you smoked: 35 years Exposure to second hand smoke: Yes Drug Use: none Patient Lives Alone: No - Female History Hx Last Menstrual Period: 1996 hysterectomy Hx Now: No <NAKUL DOWNING - Last Filed: 01/17/19 18:57> - Review of Systems Constitutional: No Fever Eyes: No Eye Redness Ears, Nose, & Throat: No Mouth Pain Respiratory: Dyspnea, Wheezing, No Cyanosis, No Stridor Cardiac: Syncope, No Chest Pain Abdominal/Gastrointestinal: No Abdominal Pain, No Vomiting Neurological: Dizziness, No Focal Weakness <NAKUL DOWNING - Last Filed: 01/17/19 18:57> Physical Exam - [place] Coma Scale Best Eye Response ([place]): (4) open spontaneously Best Verbal Response ([place]): (5) oriented Best Motor Response ([place]): (6) obeys commands [place] Total: 15 - Physical Exam General Appearance: no apparent distress Eye Exam: bilateral eye: PERRL, EOMI Ears, Nose, Throat Exam: moist mucous membranes Neck Exam: normal inspection Respiratory: wheezing, No respiratory distress, No accessory muscle use, No stridor Cardiovascular: regular rate/rhythm Gastrointestinal: soft, No tenderness Back Exam: No vertebral tenderness Extremity Exam: No joint swelling 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, 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, 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 Exam: normal hearing, normal speech, PERRL Skin Exam: warm, dry SpO2 Interpretation: normal SpO2: 100 <NAKUL DOWNING - Last Filed: 01/17/19 18:57> - Nursing Vital Signs Nursing Vital Signs: Initial Vital Signs Temperature 97.5 F 01/17/19 16:39 Pulse Rate 84 01/17/19 16:39 Respiratory Rate 18 01/17/19 16:39 Blood Pressure 157/87 01/17/19 16:39 O2 Sat by Pulse Oximetry 100 01/17/19 16:39 Pain Scale Pain Intensity 0 - Course Nursing assessment & vital signs reviewed: Yes EKG Interpreted by Me: RATE (83), Sinus Rhythm, NORMAL AXIS, NORMAL INTERVALS, NORMAL QRS, Other (no change from comparison ekg date09/09/17) <CATE KENDALL - Last Filed: 01/17/19 22:35> Ordered Tests: Active Orders 24 hr Category Date Time Status Oim Consultant STAT Care 01/17/19 16:55 Active EKG-ER Only STAT Care 01/17/19 16:54 Active IV Insertion STAT Care 01/17/19 16:54 Active Oxygen-ED Only Nasal Cannula 2 lpm Care 01/17/19 16:54 Active CHEST 1 VIEW (PORTABLE) Stat Exams 01/17/19 16:55 Taken CHEST WITH CONTRAST [CT] Stat Exams 01/17/19 19:47 Taken HEAD WITHOUT CONTRAST [CT] Stat Exams 01/17/19 16:56 Taken ABG [ARTERIAL BLOOD GASES] Stat Lab 01/17/19 18:18 Completed ABG [ARTERIAL BLOOD GASES] Stat Lab 05/16/19 22:05 Completed CBC W DIFF Stat Lab 01/17/19 18:10 Completed CMP Stat Lab 01/17/19 18:10 Completed D-DIMER QUANTITATION Stat Lab 01/17/19 18:10 Completed NT PRO BNP Stat Lab 01/17/19 18:10 Completed PROTIME WITH INR Stat Lab 01/17/19 18:10 Completed TROPONIN Q3H Lab 01/17/19 18:10 Completed TROPONIN Q3H Lab 01/17/19 20:16 Completed TROPONIN Q3H Lab 01/17/19 23:00 Ordered TROPONIN Q3H Lab 01/18/19 02:00 Ordered TROPONIN Q3H Lab 01/18/19 05:00 Ordered UA W/RFX UR CULTURE Stat Lab 01/17/19 21:30 Completed Urine Triage Profile Stat Lab 01/17/19 21:30 Completed BiPap/CPAP STAT RT 01/17/19 18:40 Active Respiratory Therapy Assessment DAILY RT 01/17/19 17:07 Active Transfer Order Routine Transfer 01/17/19 Ordered Medication Summary Generic Name Dose Route Start Last Admin Trade Name Freq PRN Reason Stop Dose Admin Dextrose/Sodium Chloride 1,000 mls @ 50 mls/hr 01/17/19 22:30 Dextrose 5%-Ns Iv Solution 1000 Ml IV 02/16/19 22:29 .Q20H TISHA Discontinued Medications Generic Name Dose Route Start Last Admin Trade Name Freq PRN Reason Stop Dose Admin Albuterol/Ipratropium 3 ml 01/17/19 16:56 01/17/19 17:04 Duoneb 0.5-3 Mg/3 Ml Neb IH 01/17/19 16:57 3 ml STAT ONE Administration Albuterol/Ipratropium Confirm 01/17/19 17:02 Duoneb 0.5-3 Mg/3 Ml Neb Administered 01/17/19 17:03 Dose 3 ml IH .STK-MED ONE Dextrose 50 ml 01/17/19 17:49 01/17/19 17:56 D50w 50 Ml Abboject IV 01/17/19 17:50 50 ml STAT ONE Administration Enoxaparin Sodium 80 mg 01/17/19 22:23 Enoxaparin Sodium SQ 01/17/19 22:24 STAT ONE Furosemide 40 mg 01/17/19 22:09 Lasix 40 Mg/4 Ml IV 01/17/19 22:10 STAT ONE Sodium Chloride 1,000 mls @ 999 mls/hr 01/17/19 16:54 01/17/19 17:00 Sodium Chloride 0.9% 1000 Ml IV 01/17/19 17:54 999 mls/hr .Q1H1M STA Administration Sodium Chloride Confirm 01/17/19 17:00 Sodium Chloride 0.9% 1000 Ml Administered 01/17/19 17:01 Dose 1,000 mls @ ud .ROUTE .STK-MED ONE Naloxone HCl Confirm 01/17/19 17:46 Narcan 2 Mg/2 Ml Administered 01/17/19 17:47 Dose 2 mg .ROUTE .STK-MED ONE Naloxone HCl 1 mg 01/17/19 17:49 01/17/19 17:50 Narcan 2 Mg/2 Ml IV 01/17/19 17:50 1 mg STAT ONE Administration Lab/Rad Data: Laboratory Result Diagrams 01/17/19 18:10 01/17/19 18:10 Laboratory Results 01/17/19 01/17/19 01/17/19 Range/Units 22:05 21:30 21:30 WBC (4.0-10.5) K/mm3 RBC (4.1-5.4) M/mm3 Hgb (12.0-16.0) gm/dl Hct (35-47) % MCV (78-100) fl MCH (26-32) pg MCHC (32-36) g/dl RDW (11.5-14.0) % Plt Count (150-450) K/mm3 MPV (6-9.5) fl Gran % (36.0-66.0) % Eos # (Auto) (0-0.5) Absolute Lymphs (auto) (1.0-4.6) Absolute Monos (auto) (0.0-1.3) Lymphocytes % (24.0-44.0) % Monocytes % (0.0-12.0) % Eosinophils % (0.00-5.0) % Basophils % (0.0-0.4) % Absolute Granulocytes (1.4-6.9) Basophils # (0-0.4) PT (9.95-12.35) SECONDS INR (0.8-3.0) D-Dimer (215-500) ng/mL Puncture Site LEFT RADIAL pCO2 52 H (35-45) mmHg pO2 88 (75-100) mmHg Base Excess 0.3 (-2.0-2.0) O2 Saturation 93.7 L (94-100) g/dF ABG pH 7.32 L (7.35-7.45) ABG HCO3 26.8 (22-28) ABG O2 Sat (Measured) 97.4 (95-100) % Des Test YES A-a Gradient 47 a/A Ratio 0.65 Hemoglobin 9.4 Carboxyhemoglobin 2.4 (0.0-6.9) % THgb Methemoglobin 1.4 (1.4-1.5) % Temperature 37.0 C POC O2 Flow Rate 28 % Sodium (137-145) mmol/L Potassium 4.8 (3.5-5.1) mmol/L Chloride (98-107) mmol/L Carbon Dioxide (22-30) mmol/L Anion Gap (5-15) MEQ/L BUN (7-17) mg/dL Creatinine (0.52-1.04) mg/dL Estimated GFR ML/MIN Glucose (74-106) mg/dL Calcium (8.4-10.2) mg/dL Total Bilirubin (0.2-1.3) mg/dL AST (14-36) U/L ALT (0-35) U/L Alkaline Phosphatase (38-126) U/L Ammonia (9-30) umol/L Troponin I (0.000-0.034) ng/mL NT-Pro-B Natriuret Pep (0-900) pg/mL Serum Total Protein (6.3-8.2) g/dL Albumin (3.5-5.0) g/dL Urine Color STRAW (YELLOW) Urine Appearance CLEAR (CLEAR) Urine pH 7.0 (5-6) Ur Specific [place] 1.011 (1.005-1.025) Urine Protein 100 (Negative) Urine Ketones NEGATIVE (NEGATIVE) Urine Blood NEGATIVE (0-5) Ubaldo/ul Urine Nitrite NEGATIVE (NEGATIVE) Urine Bilirubin NEGATIVE (NEGATIVE) Urine Urobilinogen NEGATIVE (0-1) mg/dL Ur Leukocyte Esterase NEGATIVE (NEGATIVE) Urine WBC (Auto) NONE (0-5) /HPF Urine RBC (Auto) NONE (0-2) /HPF U Epithel Cells (Auto) NONE (FEW) /HPF Urine Bacteria (Auto) NONE (NEGATIVE) /HPF Urine Culture Reflexed NO (NO) Urine Glucose NEGATIVE (NEGATIVE) mg/dL Urine Opiates Level NEGATIVE (NEGATIVE) Ur Methadone NEGATIVE (NEGATIVE) Urine Barbiturates NEGATIVE (NEGATIVE) Ur Phencyclidine (PCP) NEGATIVE (NEGATIVE) Urine Amphetamine NEGATIVE (NEGATIVE) U Benzodiazepine Level NEGATIVE (NEGATIVE) Urine Cocaine NEGATIVE (NEGATIVE) Urine Marijuana (THC) NEGATIVE (NEGATIVE) 01/17/19 01/17/19 01/17/19 Range/Units 20:16 19:08 18:18 WBC (4.0-10.5) K/mm3 RBC (4.1-5.4) M/mm3 Hgb (12.0-16.0) gm/dl Hct (35-47) % MCV (78-100) fl MCH (26-32) pg MCHC (32-36) g/dl RDW (11.5-14.0) % Plt Count (150-450) K/mm3 MPV (6-9.5) fl Gran % (36.0-66.0) % Eos # (Auto) (0-0.5) Absolute Lymphs (auto) (1.0-4.6) Absolute Monos (auto) (0.0-1.3) Lymphocytes % (24.0-44.0) % Monocytes % (0.0-12.0) % Eosinophils % (0.00-5.0) % Basophils % (0.0-0.4) % Absolute Granulocytes (1.4-6.9) Basophils # (0-0.4) PT (9.95-12.35) SECONDS INR (0.8-3.0) D-Dimer (215-500) ng/mL Puncture Site LEFT BRACHIAL pCO2 56 H (35-45) mmHg pO2 116 H (75-100) mmHg Base Excess 0.7 (-2.0-2.0) O2 Saturation 94.6 (94-100) g/dF ABG pH 7.30 L (7.35-7.45) ABG HCO3 27.6 (22-28) ABG O2 Sat (Measured) 98.7 (95-100) % Des Test NOT APPLICABLE A-a Gradient -36 a/A Ratio 1.45 Hemoglobin 8.6 Carboxyhemoglobin 3.0 (0.0-6.9) % THgb Methemoglobin 1.3 L (1.4-1.5) % Temperature 37.0 C POC O2 Flow Rate 21 % Sodium (137-145) mmol/L Potassium 3.9 (3.5-5.1) mmol/L Chloride (98-107) mmol/L Carbon Dioxide (22-30) mmol/L Anion Gap (5-15) MEQ/L BUN (7-17) mg/dL Creatinine (0.52-1.04) mg/dL Estimated GFR ML/MIN Glucose (74-106) mg/dL Calcium (8.4-10.2) mg/dL Total Bilirubin (0.2-1.3) mg/dL AST (14-36) U/L ALT (0-35) U/L Alkaline Phosphatase (38-126) U/L Ammonia 24 (9-30) umol/L Troponin I < 0.012 (0.000-0.034) ng/mL NT-Pro-B Natriuret Pep (0-900) pg/mL Serum Total Protein (6.3-8.2) g/dL Albumin (3.5-5.0) g/dL Urine Color (YELLOW) Urine Appearance (CLEAR) Urine pH (5-6) Ur Specific [place] (1.005-1.025) Urine Protein (Negative) Urine Ketones (NEGATIVE) Urine Blood (0-5) Ubaldo/ul Urine Nitrite (NEGATIVE) Urine Bilirubin (NEGATIVE) Urine Urobilinogen (0-1) mg/dL Ur Leukocyte Esterase (NEGATIVE) Urine WBC (Auto) (0-5) /HPF Urine RBC (Auto) (0-2) /HPF U Epithel Cells (Auto) (FEW) /HPF Urine Bacteria (Auto) (NEGATIVE) /HPF Urine Culture Reflexed (NO) Urine Glucose (NEGATIVE) mg/dL Urine Opiates Level (NEGATIVE) Ur Methadone (NEGATIVE) Urine Barbiturates (NEGATIVE) Ur Phencyclidine (PCP) (NEGATIVE) Urine Amphetamine (NEGATIVE) U Benzodiazepine Level (NEGATIVE) Urine Cocaine (NEGATIVE) Urine Marijuana (THC) (NEGATIVE) 01/17/19 01/17/19 01/17/19 Range/Units 18:10 18:10 18:10 WBC (4.0-10.5) K/mm3 RBC (4.1-5.4) M/mm3 Hgb (12.0-16.0) gm/dl Hct (35-47) % MCV (78-100) fl MCH (26-32) pg MCHC (32-36) g/dl RDW (11.5-14.0) % Plt Count (150-450) K/mm3 MPV (6-9.5) fl Gran % (36.0-66.0) % Eos # (Auto) (0-0.5) Absolute Lymphs (auto) (1.0-4.6) Absolute Monos (auto) (0.0-1.3) Lymphocytes % (24.0-44.0) % Monocytes % (0.0-12.0) % Eosinophils % (0.00-5.0) % Basophils % (0.0-0.4) % Absolute Granulocytes (1.4-6.9) Basophils # (0-0.4) PT 16.1 H (9.95-12.35) SECONDS INR 1.38 (0.8-3.0) D-Dimer 3506 H* (215-500) ng/mL Puncture Site pCO2 (35-45) mmHg pO2 (75-100) mmHg Base Excess (-2.0-2.0) O2 Saturation (94-100) g/dF ABG pH (7.35-7.45) ABG HCO3 (22-28) ABG O2 Sat (Measured) (95-100) % Des Test A-a Gradient a/A Ratio Hemoglobin Carboxyhemoglobin (0.0-6.9) % THgb Methemoglobin (1.4-1.5) % Temperature C POC O2 Flow Rate % Sodium 127 L (137-145) mmol/L Potassium 4.0 (3.5-5.1) mmol/L Chloride 93 L (98-107) mmol/L Carbon Dioxide 26 (22-30) mmol/L Anion Gap 11.5 (5-15) MEQ/L BUN 25 H (7-17) mg/dL Creatinine 0.84 (0.52-1.04) mg/dL Estimated GFR > 60.0 ML/MIN Glucose 222 H (74-106) mg/dL Calcium 7.6 L (8.4-10.2) mg/dL Total Bilirubin 0.30 (0.2-1.3) mg/dL AST 35 (14-36) U/L ALT 17 (0-35) U/L Alkaline Phosphatase 131 H (38-126) U/L Ammonia (9-30) umol/L Troponin I < 0.012 (0.000-0.034) ng/mL NT-Pro-B Natriuret Pep 1420 H (0-900) pg/mL Serum Total Protein 6.0 L (6.3-8.2) g/dL Albumin 2.7 L (3.5-5.0) g/dL Urine Color (YELLOW) Urine Appearance (CLEAR) Urine pH (5-6) Ur Specific [place] (1.005-1.025) Urine Protein (Negative) Urine Ketones (NEGATIVE) Urine Blood (0-5) Ubaldo/ul Urine Nitrite (NEGATIVE) Urine Bilirubin (NEGATIVE) Urine Urobilinogen (0-1) mg/dL Ur Leukocyte Esterase (NEGATIVE) Urine WBC (Auto) (0-5) /HPF Urine RBC (Auto) (0-2) /HPF U Epithel Cells (Auto) (FEW) /HPF Urine Bacteria (Auto) (NEGATIVE) /HPF Urine Culture Reflexed (NO) Urine Glucose (NEGATIVE) mg/dL Urine Opiates Level (NEGATIVE) Ur Methadone (NEGATIVE) Urine Barbiturates (NEGATIVE) Ur Phencyclidine (PCP) (NEGATIVE) Urine Amphetamine (NEGATIVE) U Benzodiazepine Level (NEGATIVE) Urine Cocaine (NEGATIVE) Urine Marijuana (THC) (NEGATIVE) 01/17/19 Range/Units 18:10 WBC 7.8 (4.0-10.5) K/mm3 RBC 3.21 L (4.1-5.4) M/mm3 Hgb 8.3 L (12.0-16.0) gm/dl Hct 26.0 L (35-47) % MCV 81.0 (78-100) fl MCH 25.8 L (26-32) pg MCHC 31.9 L (32-36) g/dl RDW 16.4 H (11.5-14.0) % Plt Count 190 (150-450) K/mm3 MPV 9.6 H (6-9.5) fl Gran % 83.6 H (36.0-66.0) % Eos # (Auto) 0.11 (0-0.5) Absolute Lymphs (auto) 0.78 L (1.0-4.6) Absolute Monos (auto) 0.35 (0.0-1.3) Lymphocytes % 10.1 L (24.0-44.0) % Monocytes % 4.5 (0.0-12.0) % Eosinophils % 1.4 (0.00-5.0) % Basophils % 0.4 (0.0-0.4) % Absolute Granulocytes 6.49 (1.4-6.9) Basophils # 0.03 (0-0.4) PT (9.95-12.35) SECONDS INR (0.8-3.0) D-Dimer (215-500) ng/mL Puncture Site pCO2 (35-45) mmHg pO2 (75-100) mmHg Base Excess (-2.0-2.0) O2 Saturation (94-100) g/dF ABG pH (7.35-7.45) ABG HCO3 (22-28) ABG O2 Sat (Measured) (95-100) % Des Test A-a Gradient a/A Ratio Hemoglobin Carboxyhemoglobin (0.0-6.9) % THgb Methemoglobin (1.4-1.5) % Temperature C POC O2 Flow Rate % Sodium (137-145) mmol/L Potassium (3.5-5.1) mmol/L Chloride (98-107) mmol/L Carbon Dioxide (22-30) mmol/L Anion Gap (5-15) MEQ/L BUN (7-17) mg/dL Creatinine (0.52-1.04) mg/dL Estimated GFR ML/MIN Glucose (74-106) mg/dL Calcium (8.4-10.2) mg/dL Total Bilirubin (0.2-1.3) mg/dL AST (14-36) U/L ALT (0-35) U/L Alkaline Phosphatase (38-126) U/L Ammonia (9-30) umol/L Troponin I (0.000-0.034) ng/mL NT-Pro-B Natriuret Pep (0-900) pg/mL Serum Total Protein (6.3-8.2) g/dL Albumin (3.5-5.0) g/dL Urine Color (YELLOW) Urine Appearance (CLEAR) Urine pH (5-6) Ur Specific [place] (1.005-1.025) Urine Protein (Negative) Urine Ketones (NEGATIVE) Urine Blood (0-5) Ubaldo/ul Urine Nitrite (NEGATIVE) Urine Bilirubin (NEGATIVE) Urine Urobilinogen (0-1) mg/dL Ur Leukocyte Esterase (NEGATIVE) Urine WBC (Auto) (0-5) /HPF Urine RBC (Auto) (0-2) /HPF U Epithel Cells (Auto) (FEW) /HPF Urine Bacteria (Auto) (NEGATIVE) /HPF Urine Culture Reflexed (NO) Urine Glucose (NEGATIVE) mg/dL Urine Opiates Level (NEGATIVE) Ur Methadone (NEGATIVE) Urine Barbiturates (NEGATIVE) Ur Phencyclidine (PCP) (NEGATIVE) Urine Amphetamine (NEGATIVE) U Benzodiazepine Level (NEGATIVE) Urine Cocaine (NEGATIVE) Urine Marijuana (THC) (NEGATIVE) <NAKUL DOWNING - Last Filed: 01/17/19 18:57> - Progress Progress: improved, re-examined Discussed with : Jose Counseled pt/family regarding: lab results, diagnosis, rad results <CATE KENDALL - Last Filed: 01/17/19 22:35> - Progress Progress Note: 01/17/19 18:[address] Kendall at 19:00 (NAKUL DOWNING) 01/17/19 22:30 i reviewed pt hx, condition, lab, ekg, cta chest results with dr. betancourt. she accepts pt for observation 01/17/19 22:33 cta chest: very tiny rll pulmonary embolus. diffuse bilat interstitial alveolar opacities. intraabd ascites, cirrhosis, splenomegaly (CATE KENDALL) <NAKUL DOWNING - Last Filed: 01/17/19 18:57> - Departure Departure Disposition: Observation Critical Care Time: Yes Critical Care Time(excluding separately billable procedures): 30-74 minutes <CATE KENDALL - Last Filed: 01/17/19 22:35> - Departure Clinical Impression: Pulmonary embolus, CHF (congestive heart failure), Hypoglycemia, Hyponatremia Condition: Stable Referrals: TERRY TRONCOSO [Primary Care Provider] - Instructions: Heart Failure
[2019-01-17] MEDS ORDERED: NARCAN 2 MG/2 ML ONE (17:46)
[2019-01-17] MEDS ORDERED: NARCAN 2 MG/2 ML IV ONE (17:49)
[2019-01-17] MEDS ORDERED: D50W 50 ml Abboject IV ONE (17:49)
[2019-01-17 18:11] LABS: BASOPHIL % 0.4 % (0.0-0.4); Basophil (Absolute #) 0.03 (0-0.4); Eosinophil % 1.4 % (0.00-5.0); Eosinophil (Absolute #) 0.11 (0-0.5); Granulocyte Absolute (ANC) 6.49 (1.4-6.9); Granulocytes % 83.6 % (36.0-66.0); Hemoglobin 8.3 gm/dl (12.0-16.0); Lymphocyte (Absolute #) 0.78 (1.0-4.6); Lymphocytes % 10.1 % (24.0-44.0); Mean Corpuscular Hgb Concent. 31.9 g/dl (32-36); Mean Platelet Volume 9.6 fl (6-9.5); Monocyte (Absolute #) 0.35 (0.0-1.3); Monocytes % 4.5 % (0.0-12.0); Platelet Count 190 K/mm3 (150-450); Red Blood Count 3.21 M/mm3 (4.1-5.4); Red Cell Distribution Width 16.4 % (11.5-14.0); White Blood Count 7.8 K/mm3 (4.0-10.5)
[2019-01-17 18:15] LABS: Mean Corpuscular Hemoglobin 25.8 pg (26-32)
[2019-01-17 18:17] LABS: INR 1.38 (0.8-3.0); PROTIME 16.1 SECONDS (9.95-12.35)
[2019-01-17 18:23] LABS: A-aADO2 -36; ABG HEMOGLOBIN 8.6; ABG POTASSIUM 3.9 (3.5-5.1); ABG SITE LEFT BRACHIAL; ARTERIAL BLD GAS O2 SATURATION 98.7 % (95-100); ARTERIAL BLOOD GAS BASE EXCESS 0.7 (-2.0-2.0); ARTERIAL BLOOD GAS FIO2 21 %; ARTERIAL BLOOD GAS PCO2 56 mmHg (35-45); ARTERIAL BLOOD GAS PO2 116 mmHg (75-100); HCO3- 27.6 (22-28); HGB O2 SAT 94.6 g/dF (94-100); Methhemoglobin 1.3 % (1.4-1.5); paO2 pAO1 1.45
[2019-01-17 18:33] LABS: ALBUMIN 2.7 g/dL (3.5-5.0); ALKALINE PHOSPHATASE 131 U/L (38-126); ANION GAP 11.5 MEQ/L (5-15); BLOOD UREA NITROGEN 25 mg/dL (7-17); CHLORIDE 93 mmol/L (98-107); Calcium 7.6 mg/dL (8.4-10.2); Carbon Dioxide 26 mmol/L (22-30); Creatinine 1 0.84 mg/dL (0.52-1.04); Glucose 222 mg/dL (74-106); NT PRO BNP 1420 pg/mL (0-900); SGOT/AST 35 U/L (14-36); SGPT/ALT 17 U/L (0-35); SODIUM 127 mmol/L (137-145)
[2019-01-17 21:41] LABS: Appearance CLEAR (CLEAR); Bilirubin NEGATIVE (NEGATIVE); Blood NEGATIVE Ery/ul (0-5); Glucose NEGATIVE (NEGATIVE); Ketones NEGATIVE (NEGATIVE); Leukocyte Esterase NEGATIVE (NEGATIVE); Nitrite NEGATIVE (NEGATIVE); Protein,Urine Dip 100 (Negative); Specific Gravity 1.011 (1.005-1.025); Urobilinogen NEGATIVE mg/dL (0-1)
[2019-01-17 21:52] LABS: Amphetamine,Urine NEGATIVE (NEGATIVE); Barbiturate,Urine NEGATIVE (NEGATIVE); Benzodiazepine,Urine NEGATIVE (NEGATIVE); Cocaine,Urine NEGATIVE (NEGATIVE); Methadone,Urine NEGATIVE (NEGATIVE); Opiate,Urine NEGATIVE (NEGATIVE); PCP,Urine NEGATIVE (NEGATIVE); THC,Urine NEGATIVE (NEGATIVE)
[2019-01-17] MEDS ORDERED: Lasix 40 MG/4 ML IV ONE (22:09)
[2019-01-17 22:11] LABS: A-aADO2 47; ABG HEMOGLOBIN 9.4; ABG POTASSIUM 4.8 (3.5-5.1); ABG SITE LEFT RADIAL; ARTERIAL BLD GAS O2 SATURATION 97.4 % (95-100); ARTERIAL BLOOD GAS BASE EXCESS 0.3 (-2.0-2.0); ARTERIAL BLOOD GAS FIO2 28 %; ARTERIAL BLOOD GAS PCO2 52 mmHg (35-45); ARTERIAL BLOOD GAS PO2 88 mmHg (75-100); ARTERIAL BLOOD GAS pH 7.32 (7.35-7.45); CARBOXYHEMOGLOBIN 2.4 % THgb (0.0-6.9); HCO3- 26.8 (22-28); HGB O2 SAT 93.7 g/dF (94-100); Methhemoglobin 1.4 % (1.4-1.5); paO2 pAO1 0.65
[2019-01-17 22:12] LABS: ALLEN TEST OK? YES
[2019-01-17] MEDS ORDERED: ENOXAPARIN SODIUM SQ ONE ×2 (22:23→22:28)
[2019-01-17] MEDS ORDERED: Lasix 40 MG/4 ML ONE (22:28)
[2019-01-17] MEDS ORDERED: Dextrose 5%-NS IV Solution 1000 ML 1,000 ML IV ONE (22:28)
[2019-01-17] MEDS ORDERED: Dextrose 5%-NS IV Solution 1000 ML 1,000 ML IV SCH (22:30)
[2019-01-17] MEDS ORDERED: Zofran 4 MG/2 ML VIAL IV PRN (23:10)
[2019-01-18] MEDS: PROVENTIL 2.5 MG/3 ML NEB IH SCH ×4 (05:53→19:09)
[2019-01-18 06:52] LABS: Basophil (Absolute #) 0 (0-0.4); Eosinophil % 0.2 % (0.00-5.0); Eosinophil (Absolute #) 0.01 (0-0.5); Granulocyte Absolute (ANC) 3.67 (1.4-6.9); Granulocytes % 82.6 % (36.0-66.0); Hematocrit 25.7 % (35-47); Hemoglobin 8.1 gm/dl (12.0-16.0); Lymphocytes % 11.3 % (24.0-44.0); Mean Cell Volume 81.6 fl (78-100); Mean Corpuscular Hemoglobin 25.7 pg (26-32); Mean Corpuscular Hgb Concent. 31.5 g/dl (32-36); Mean Platelet Volume 9.6 fl (6-9.5); Monocyte (Absolute #) 0.26 (0.0-1.3); Monocytes % 5.9 % (0.0-12.0); Platelet Count 192 K/mm3 (150-450); Red Blood Count 3.15 M/mm3 (4.1-5.4); Red Cell Distribution Width 16.6 % (11.5-14.0); White Blood Count 4.4 K/mm3 (4.0-10.5)
[2019-01-18 06:59] LABS: ALBUMIN 2.7 g/dL (3.5-5.0); ALKALINE PHOSPHATASE 145 U/L (38-126); ANION GAP 15.2 MEQ/L (5-15); BLOOD UREA NITROGEN 27 mg/dL (7-17); CHLORIDE 95 mmol/L (98-107); Calcium 8.2 mg/dL (8.4-10.2); Carbon Dioxide 25 mmol/L (22-30); Creatinine 1 0.94 mg/dL (0.52-1.04); Glucose 247 mg/dL (74-106); NT PRO BNP 991 pg/mL (0-900); SGOT/AST 29 U/L (14-36); SGPT/ALT 19 U/L (0-35); SODIUM 131 mmol/L (137-145); Total Protein 6.1 g/dL (6.3-8.2)
[2019-01-18 07:25] LABS: Potassium 5.1 mmol/L (3.5-5.1)
--- NOTE | 2019-01-18 08:37 | XRAY ---
Indication: Syncope and headache. Loss of consciousness. Poor historian. Multiple contiguous axial images obtained through the head without contrast. Comparison: None Several images slightly degraded by motion artifact especially near the base of the brain. No gross acute intracranial hemorrhage, abnormal extra-axial fluid collection, or mass effect. Fourth ventricle is midline without hydrocephalus. Mcconnell-white matter differentiation preserved. Bony calvarium intact. Visualized paranasal sinuses and mastoid air cells are clear. Impression: Motion artifact. No gross acute intracranial abnormalities. CT DI 50.97
--- NOTE | 2019-01-18 08:44 | XRAY ---
Indication: Short of breath. Elevated d-dimer. Multiple contiguous axial images obtained through the chest using 100 cc Isovue 370 contrast and PE protocol. Comparison: Noncontrast exam July 08, 2016. There is good opacification of the pulmonary arteries to include the lobar and segmental branches. Tiny pulmonary embolus seen in the distal right lower lobe pulmonary artery. Heart is nonenlarged. Aorta is normal in course and caliber. Prominent bilateral perihilar adenopathy, largest right suprahilar measuring 1.7 x 3.2 cm. Examination of the lung parenchyma again demonstrates diffuse bilateral interstitial alveolar opacities greatest near the lung bases. No consolidation/effusion. Again partial differential includes nonspecific pneumonitis, idiopathic pulmonary fibrosis, pulmonary alveolar proteinosis, and hypersensitivity pneumonia. Bony thorax intact again with minimal degenerative changes throughout the spine. Limited upper abdomen demonstrates worsening cirrhosis, increasing splenomegaly today 17.2 cm, and increasing large ascites. Impression: 1. New tiny right lower lobe pulmonary embolus. 2. Grossly stable diffuse bilateral interstitial alveolar opacities with partial differential offered above. 3. Mild prominent bilateral hilar adenopathy. 4. Worsening cirrhosis, splenomegaly, and ascites. CT DI 22.96
--- NOTE | 2019-01-18 08:47 | XRAY ---
Indication: Short of breath, wheezing, and fatigue. Comparison: September 14, 2018. Portable chest less inflated today again with bilateral interstitial alveolar opacities. No consolidation or large effusion. New left arm PICC line with tip projecting over the SVC. Remaining heart and bony thorax unremarkable.
[2019-01-18] MEDS: TYLENOL 325 MG PO PRN (09:20)
[2019-01-18] MEDS ORDERED: Lasix 40 MG/4 ML IV SCH (10:00)
--- NOTE | 2019-01-18 10:03 | HP ---
HISTORY OF PRESENT ILLNESS: This is a 53 year-old patient of mine who presented to the emergency department after being found unresponsive in her home with a blood sugar in the 30's. According to EMS, she was given a bolus of D50 by then and a nebulizer treatment. The patient is alert and oriented this morning. She reports that she was at [facility] from 01/14/2019 to 01/14/2019 with ascites and she reports they drained 2 gallons off. She reports she saw Dr. Navarro's office yesterday and her blood sugar was in the 30's there. They gave her Starburst to eat and rechecked her blood sugar and it was 79 and she was told she could go home. I called Natalie the physician's medical assistant dermatology at Dr. Navarro's office, she reports the patient is on a pump and has a basal rate usually at 44 units per day which they decreased yesterday to 38 units a day. She also has a bolus ratio of 1 unit of Humalog for every 4 gm of carbs she eats and then 1 unit of insulin for every 15 points her blood sugar is high and reports that the patient had given herself 18 units of Humalog right before she came to the clinic. The patient also had a recent foot surgery with Dr. Madrid on 01/04/2019. She reports one stitch came out and now more stitches have come out and it is wide open. She reports they were aware of this at [facility] and have set her up to see Dr. Madrid in the [facility] this coming Monday. She has a PICC line in place. She also saw Dr. Romo, Infection Disease, yesterday. He has ordered Cubicin through her IV. She reports she had a culture when she has surgery that was growing something. She reports she has also been on Cubicin and Meropenem for weeks before this. She cannot tell me much more about this infection. They took her insulin pump off when she was in the emergency department. The patient reports she feels like she has been hit by a truck. REVIEW OF SYSTEMS: She has had a cough. She reports her chest hurts. She reports headache. No nausea or vomiting. No diarrhea. She reports her belly was sore but better than before when she had the 2 gallons of fluid removed at [facility]. At this time I do not have access to any of [facility] records and we have asked for these. PAST MEDICAL HISTORY: Asthma, chronic obstructive pulmonary disease, depression, diabetes mellitus type 2, hypertension, iron deficiency anemia, cirrhosis of the liver. She reports she is going to see Dr. Valencia but has not yet. In the past she had declined seeing a med peds. PAST SURGICAL HISTORY: section x3. Cholecystectomy. Hysterectomy. Tonsillectomy. Multiple left foot surgeries. Right second toe amputation. MEDICATIONS: Please see the medication reconciliation list. ALLERGIES: ADHESIVE TAPE. SOCIAL HISTORY: She smokes one half pack per day, denies any alcohol use. Her two daughters live with her. FAMILY HISTORY: Her mother of a stroke after having a brain aneurysm. Her father is living and healthy. PHYSICAL EXAMINATION: VITAL SIGNS: Temperature current 98.5F, temperature max 98.5F, heart rate 110, respiratory rate 22, blood pressure 142/70. Oxygen saturation 98% on 2 liters. GENERAL: The patient is a pleasant talkative lady lying in bed in no acute distress. She is able to follow commands and answers questions appropriately. CVS: She is tachycardic with a regular rhythm. No murmurs, gallops or rubs are appreciated. CHEST: Scattered rhonchi at the bases, bilateral equal breath sounds. No tachypnea. No retractions. ABDOMEN: Obese. She has some splenomegaly but hard to assess due to obesity. It is soft, nontender, normal bowel sounds. EXTREMITIES: She has a large gapping foot wound with sutures in place with some tunneling. There is no surrounding erythema. No drainage. When I saw the bandage had come off on her bed that the wound was open. Right lower extremity no clubbing, cyanosis or edema. LABORATORY DATA AND TESTS: Hemoglobin 8.1, sodium 131, glucose 247. BNP 991. Albumin 2.7. UA was negative. Urine tox was negative. She has no cultures in lab. She had a CT scan of her chest show a small right lower lobe pulmonary embolus, prominent bilateral hilar adenopathy, worsening cirrhosis, splenomegaly and ascites. EKG normal sinus rhythm. Heart rate [address]-T wave changes. ASSESSMENT AND PLAN: 1) PULMONARY EMBOLUS: Will continue with Lovenox at this time, will consult music intern, Dr. Zachery Galan. The patient has multiple other health problems along with this new problem now. 2) HYPOGLYCEMIA: When I talked to the PA at Dr. Navarro's office she thought it would be best if she was not placed back on her pump at the time of discharge and will try to see how much insulin the patient is requiring at this time. Will probably start a low dose of some Lantus while she is here and continue a short-acting insulin with her meal. 3) CIRRHOSIS: Etiology is unknown. The patient plans to finally see a med peds. She usually requires paracentesis every few months which she gets at [facility] most of the time. 4) DIABETES MELLITUS TYPE 2: It is actually well controlled according to her A1C but she had significant hypoglycemic event now. 5) LEFT FOOT WOUND: I tried to call Dr. Madrid's office. They are not open again until this coming Monday. I left a message. I tried the number we have his home and pager and both have been disconnected. I will ask physical therapy to take a look at her wound. Will try to speak with Dr. Romo and see what doses of antibiotics she has been getting and what the indication was. 6) CHRONIC OBSTRUCTIVE PULMONARY DISEASE AND ASTHMA: Will continue with her home medication. 7) HYPERTENSION: Will continue with her home medications. 8) ANEMIA: Will continue to monitor closely. She may need a blood transfusion if her hemoglobin continues to drop. 9) HYPERLIPIDEMIA: Will continue her cholesterol medicine. 10) HYPOTHYROIDISM: Will continue with her levothyroxine.
[2019-01-18] MEDS: ENOXAPARIN SODIUM SQ SCH ×2 (10:27→21:20)
[2019-01-18] MEDS: Lantus Insulin SQ SCH (10:27)
[2019-01-18] MEDS ORDERED: Ventolin Hfa MDI IH PRN (10:42)
[2019-01-18] MEDS ORDERED: VITAMIN D2 PO SCH (10:45)
[2019-01-18] MEDS ORDERED: PROVENTIL COMMON CANISTER IH PRN (10:49)
[2019-01-18] MEDS ORDERED: MEDICATION INTERVENTION MC SCH (11:00)
[2019-01-18] MEDS ORDERED: MEDICATION INTERVENTION PO SCH (11:00)
[2019-01-18] MEDS: BUMEX 1 MG PO SCH (11:37)
[2019-01-18] MEDS: ATARAX 25 MG PO SCH ×2 (11:37→21:19)
[2019-01-18] MEDS: DELTASONE 20 MG PO SCH ×2 (11:38→21:20)
[2019-01-18] MEDS: Zocor 10MG PO SCH (11:38)
[2019-01-18] MEDS: SYNTHROID 25 MCG PO SCH (11:38)
[2019-01-18] MEDS: FEOSOL 325 MG PO SCH (11:38)
[2019-01-18] MEDS: NORVASC 5 MG PO SCH (11:38)
[2019-01-18] MEDS: Protonix 40MG Tablet PO SCH (11:38)
[2019-01-18] MEDS ORDERED: PHARMACY DOSING REQUIRED: VANCOMYCIN IV ONE (13:50)
[2019-01-18] MEDS ORDERED: VANCOCIN 1 GM VIAL*** 1.5 GM in Sodium Chloride 0.9% 500 ML 500 ML IV SCH (15:00)
[2019-01-18] MEDS ORDERED: GABAPENTIN 600 MG PO SCH (15:00)
[2019-01-18] MEDS: Vibramycin 100 MG PO SCH (17:55)
[2019-01-18] MEDS ORDERED: NovoLOG Insulin SQ ONE (21:04)
[2019-01-18] MEDS ORDERED: Lantus Insulin SQ ONE (21:05)
[2019-01-18] MEDS: Colace 100 MG PO SCH (21:20)
[2019-01-18] MEDS: Cymbalta 30 MG Capsule PO SCH (21:20)
[2019-01-18] MEDS ORDERED: NON-FORMULARY ITEM (Hydroxyzine Hcl [Hydroxyzine Hcl] 10 MG) PO SCH (22:00)
[2019-01-18] MEDS ORDERED: NON-FORMULARY ITEM (Budesonide/Formoterol Fumarate [Symbicort 160-4.5 Mcg Inhaler] 2 PUFF) IH SCH (22:00)
[2019-01-19] MEDS: PROVENTIL 2.5 MG/3 ML NEB IH SCH ×4 (00:51→17:27)
[2019-01-19] MEDS: TYLENOL 325 MG PO PRN (03:27)
[2019-01-19] MEDS: VANCOCIN 1 GM VIAL*** 1 GM in Sodium Chloride 0.9% 250 ML 250 ML IV SCH ×2 (06:11→17:26)
[2019-01-19] MEDS: Lantus Insulin SQ SCH (08:34)
[2019-01-19] MEDS: BUMEX 1 MG PO SCH (08:34)
[2019-01-19] MEDS: ATARAX 25 MG PO SCH ×2 (08:35→21:23)
[2019-01-19] MEDS: DELTASONE 20 MG PO SCH ×2 (08:35→21:24)
[2019-01-19] MEDS: Zocor 10MG PO SCH (08:35)
[2019-01-19] MEDS: FEOSOL 325 MG PO SCH (08:35)
[2019-01-19] MEDS: SYNTHROID 25 MCG PO SCH (08:35)
[2019-01-19] MEDS: Protonix 40MG Tablet PO SCH (08:35)
[2019-01-19] MEDS: NORVASC 5 MG PO SCH (08:35)
[2019-01-19] MEDS: Vibramycin 100 MG PO SCH ×2 (08:35→17:25)
[2019-01-19] MEDS: NovoLOG Insulin SQ PRN ×3 (08:36→21:25)
[2019-01-19] MEDS: ENOXAPARIN SODIUM SQ SCH (08:36)
[2019-01-19] MEDS ORDERED: BUMETANIDE 2 MG PO SCH (10:00)
[2019-01-19] MEDS ORDERED: NON-FORMULARY ITEM (Pravastatin Sodium [Pravachol] 10 MG) PO SCH (10:00)
[2019-01-19] MEDS ORDERED: NON-FORMULARY ITEM (Omeprazole 20 Mg [Prilosec 20 Mg] 20 MG) PO SCH (10:00)
[2019-01-19] MEDS: ADVAIR 500-50 DISKUS IH SCH ×2 (12:15→17:27)
[2019-01-19 13:06] LABS: BASOPHIL % 0.2 % (0.0-0.4); Basophil (Absolute #) 0.01 (0-0.4); Eosinophil % 0.3 % (0.00-5.0); Eosinophil (Absolute #) 0.02 (0-0.5); Granulocyte Absolute (ANC) 4.92 (1.4-6.9); Granulocytes % 86.1 % (36.0-66.0); Hemoglobin 8.4 gm/dl (12.0-16.0); Lymphocyte (Absolute #) 0.43 (1.0-4.6); Lymphocytes % 7.5 % (24.0-44.0); Mean Cell Volume 83.9 fl (78-100); Mean Corpuscular Hgb Concent. 31.1 g/dl (32-36); Monocyte (Absolute #) 0.34 (0.0-1.3); Monocytes % 5.9 % (0.0-12.0); Platelet Count 182 K/mm3 (150-450); Red Blood Count 3.22 M/mm3 (4.1-5.4); Red Cell Distribution Width 17.3 % (11.5-14.0); White Blood Count 5.7 K/mm3 (4.0-10.5)
[2019-01-19 13:28] LABS: ANION GAP 16.8 MEQ/L (5-15); Calcium 8.2 mg/dL (8.4-10.2); Creatinine 1 1.07 mg/dL (0.52-1.04); Potassium 4.9 mmol/L (3.5-5.1)
--- NOTE | 2019-01-19 14:57 | PCM.NOTE ---
Date and Time: 01/19/19 5281 Subjective Assessment: Patient reports she is feeling a little better. She reports hx of DVT in left leg 2-3 years ago and being on Eliquis for this for 3 months and doing well on this. Discussed with Dr. Peng Galan who thought with her liver disease that it would be better for her to be on Eliquis than warfarin for anticoagulation for her small PE. PT as wrapped wound for the weekend to try to limit infection. Patient has been having high blood glucoses now instead of low blood glucoses. She reports her appetite is good. - Review of Systems Constitutional: Fatigue Eyes: No Symptoms Ears, Nose, & Throat: No Symptoms Respiratory: Cough, Short Of Breath Cardiac: No Symptoms Abdominal/Gastrointestinal: No Symptoms Genitourinary Symptoms: No Symptoms Musculoskeletal: Other (some vague pain in her left foot on and off) Objective Exam General Appearance: no apparent distress, alert Neurologic Exam: alert, cooperative, normal mood/affect Skin Exam: normal color, warm, dry, other (left foot wrapped and dressed) Wound Assessment: Skin/Wound Assessment Wound/Incision Assessment Start: 01/18/19 00: 17 Text: Status: Active Freq: Q6H Protocol: Document 01/19/19 14:00 CL (Rec: 01/19/19 14:32 CL [id number]) Wound/Incision Assessment Left Foot Wound Type gross abnormality Dressing Status Dry & Intact Drainage Amount Minimal Comment Pb PT has pictures and is calling it gross abnormality; dressing cdi Wound Photo Photo Taken Yes Date: 01/18/19 Time: 12:00 Comment: Pb PT has pictures and is calling it gross abnormality. Respiratory Exam: other (few scattered wheezes throughout) Cardiovascular Exam: regular rate/rhythm, normal heart sounds, No murmur, No friction rub, No gallop Gastrointestinal/Abdomen Exam: soft, normal bowel sounds, No tenderness, No distention, No mass Extremity Exam: other (no c/c/e) OBJECTIVE DATA Vital Signs: Vital Signs - 24 hr Temp Pulse Resp BP Pulse Ox 01/19/19 12:22 100 H 18 100 01/19/19 12:00 18 01/19/19 11:22 98.2 F 99 H 18 151/71 99 01/19/19 08:00 18 01/19/19 07:17 98.1 F 109 H 18 158/78 99 01/19/19 05:42 100 H 18 96 01/19/19 04:00 98.1 F 100 H 19 148/71 99 01/19/19 00:52 100 H 17 99 01/19/19 00:00 15 01/18/19 23:18 98.1 F 99 H 15 143/66 99 01/18/19 20:00 98.6 F 113 H 17 141/71 97 01/18/19 19:09 107 H 18 99 01/18/19 16:00 98.9 F 102 H 18 141/67 97 Oxygen-Last 24 hours O2 Percentage 2 Liters = 28% O2 Percentage 2 Liters = 28% O2 Percentage 2 Liters = 28% O2 Percentage 2 Liters = 28% O2 Percentage 2 Liters = 28% Pain Assessment - Last Documented Pain Intensity 5 Pain Scale Used 0-10 Pain Scale Intake and Output: Intake & Output 01/17/19 01/18/19 01/19/19 01/20/19 06:59 06:59 06:59 06:59 Intake Total 315 2279 960 Output Total 3258 6101 Balance -2935 -1214 960 Weight 89.8 kg 88.3 kg Lab Results: Accuchecks Date 01/19/19 Date 01/19/19 Date 01/18/19 Date 01/18/19 Time 11:30 Time 07:30 Time 21:20 Time 16:30 Accucheck Value: 478 Accucheck Value: 275 Accucheck Value: 329 Lab Results-Last 24 Hours 01/18/19 01/19/19 01/19/19 Range/Units 20:55 13:03 13:03 WBC 5.7 (4.0-10.5) K/mm3 RBC 3.22 L (4.1-5.4) M/mm3 Hgb 8.4 L (12.0-16.0) gm/dl Hct 27.0 L (35-47) % MCV 83.9 (78-100) fl MCH 26.0 (26-32) pg MCHC 31.1 L (32-36) g/dl RDW 17.3 H (11.5-14.0) % Plt Count 182 (150-450) K/mm3 MPV 10.0 H (6-9.5) fl Gran % 86.1 H (36.0-66.0) % Eos # (Auto) 0.02 (0-0.5) Absolute Lymphs (auto) 0.43 L (1.0-4.6) Absolute Monos (auto) 0.34 (0.0-1.3) Lymphocytes % 7.5 L (24.0-44.0) % Monocytes % 5.9 (0.0-12.0) % Eosinophils % 0.3 (0.00-5.0) % Basophils % 0.2 (0.0-0.4) % Absolute Granulocytes 4.92 (1.4-6.9) Basophils # 0.01 (0-0.4) Sodium 131 L (137-145) mmol/L Potassium 4.9 (3.5-5.1) mmol/L Chloride 96 L (98-107) mmol/L Carbon Dioxide 23 (22-30) mmol/L Anion Gap 16.8 H (5-15) MEQ/L BUN 27 H (7-17) mg/dL Creatinine 1.07 H (0.52-1.04) mg/dL Estimated GFR 57.5 ML/MIN Glucose 522 H* 545 H* (74-106) mg/dL Calcium 8.2 L (8.4-10.2) mg/dL Radiology Exams: Radiology Procedures Category Date Time Status CHEST 1 VIEW (PORTABLE) Stat Exams 01/17/19 16:55 Completed CHEST WITH CONTRAST [CT] Stat Exams 01/17/19 19:47 Completed HEAD WITHOUT CONTRAST [CT] Stat Exams 01/17/19 16:56 Completed Assessment/Plan (1) Pulmonary embolus Current Visit: Yes Status: Acute Assessment & Plan: Will stop lovenox tonight and start eliquis. Dr. Peng Galan plans to see patient tomorrow. Code(s): I26.99 - OTHER PULMONARY EMBOLISM WITHOUT ACUTE COR PULMONALE (2) Diabetes type 2, controlled Current Visit: No Status: Acute Qualifiers: Diabetes mellitus longterm insulin use: with longterm use Diabetes mellitus complication status: with skin complications Assessment & Plan: Trying to determine how much insulin she needs since pump removed after severe hypogylcemia episode. I increased her lantus today and added short acting insulin to her meals at night starting tonight. She will follow up with her Pipe Testing Technician after discharge. Code(s): E11.9 - TYPE 2 DIABETES MELLITUS WITHOUT COMPLICATIONS (3) Cirrhosis Current Visit: No Status: Chronic Qualifiers: Ascites presence: with ascites Assessment & Plan: s/p drainage of almost 6L during her last hospitalization at [facility]. She plans to see cloth shrinking tester as outpatient. (4) Unspecified open wound, left foot, subsequent encounter Current Visit: Yes Status: Acute Assessment & Plan: PT has dressed. Patient on longterm antibiotics. Left message with Dr. Madrid' s office yesterday. Surgical area has dihisced. Code(s): S91.302D - UNSPECIFIED OPEN WOUND, LEFT FOOT, SUBSEQUENT ENCOUNTER (5) COPD with exacerbation Current Visit: No Status: Acute Assessment & Plan: Finishing course of doxycycline started at [facility] (she needed 5 more days). Continue with prednisone, breathing treatments and oxygen. She wears oxygen at home also. Code(s): J44.1 - CHRONIC OBSTRUCTIVE PULMONARY DISEASE W (ACUTE) EXACERBATION (6) Anemia of chronic disease Current Visit: Yes Status: Acute Assessment & Plan: Stable at this time. Pending Sale To [facility] discharge notes that she did not want a blood transfusion there. Code(s): D63.8 - ANEMIA IN OTHER CHRONIC DISEASES CLASSIFIED ELSEWHERE (7) Hyponatremia Current Visit: Yes Status: Acute Assessment & Plan: Chronic and stable. Code(s): E87.1 - HYPO-OSMOLALITY AND HYPONATREMIA
[2019-01-19] MEDS ORDERED: NovoLOG Insulin SQ ONE (15:14)
[2019-01-19 15:33] LABS: Slide Review 1 YES
[2019-01-19] MEDS: NovoLOG Insulin SQ SCH (17:25)
[2019-01-19] MEDS: ELIQUIS 2.5 MG TABLET PO SCH (21:24)
[2019-01-19] MEDS: Cymbalta 30 MG Capsule PO SCH (21:24)
[2019-01-19] MEDS: Colace 100 MG PO SCH (21:24)
[2019-01-20] MEDS: PROVENTIL 2.5 MG/3 ML NEB IH SCH ×2 (00:45→07:09)
[2019-01-20] MEDS: TYLENOL 325 MG PO PRN ×3 (03:30→17:51)
[2019-01-20 06:06] LABS: Basophil (Absolute #) 0 (0-0.4); Eosinophil % 0.4 % (0.00-5.0); Eosinophil (Absolute #) 0.02 (0-0.5); Granulocyte Absolute (ANC) 4.47 (1.4-6.9); Granulocytes % 86.6 % (36.0-66.0); Hematocrit 26.2 % (35-47); Hemoglobin 8.2 gm/dl (12.0-16.0); Lymphocyte (Absolute #) 0.48 (1.0-4.6); Lymphocytes % 9.3 % (24.0-44.0); Mean Cell Volume 83.2 fl (78-100); Mean Corpuscular Hgb Concent. 31.3 g/dl (32-36); Mean Platelet Volume 9.7 fl (6-9.5); Monocyte (Absolute #) 0.19 (0.0-1.3); Monocytes % 3.7 % (0.0-12.0); Platelet Count 158 K/mm3 (150-450); Red Blood Count 3.15 M/mm3 (4.1-5.4); Red Cell Distribution Width 17.1 % (11.5-14.0); White Blood Count 5.2 K/mm3 (4.0-10.5)
[2019-01-20 06:30] LABS: ANION GAP 13.9 MEQ/L (5-15); BLOOD UREA NITROGEN 26 mg/dL (7-17); CHLORIDE 99 mmol/L (98-107); Calcium 8.6 mg/dL (8.4-10.2); Carbon Dioxide 27 mmol/L (22-30); Creatinine 1 0.93 mg/dL (0.52-1.04); Glucose 233 mg/dL (74-106); Potassium 5.1 mmol/L (3.5-5.1); SODIUM 134 mmol/L (137-145)
[2019-01-20] MEDS: VANCOCIN 1 GM VIAL*** 1 GM in Sodium Chloride 0.9% 250 ML 250 ML IV SCH ×2 (06:44→17:48)
[2019-01-20] MEDS: ADVAIR 500-50 DISKUS IH SCH ×2 (07:12→19:05)
[2019-01-20] MEDS: NovoLOG Insulin SQ SCH ×3 (08:33→17:48)
[2019-01-20] MEDS: Vibramycin 100 MG PO SCH ×2 (08:33→17:48)
[2019-01-20] MEDS: Lantus Insulin SQ SCH (08:33)
[2019-01-20 08:37] LABS: Slide Review 1 YES
[2019-01-20] MEDS: BUMEX 1 MG PO SCH (10:05)
[2019-01-20] MEDS: ELIQUIS 2.5 MG TABLET PO SCH ×2 (10:05→21:39)
[2019-01-20] MEDS: Protonix 40MG Tablet PO SCH (10:06)
[2019-01-20] MEDS: Zestril 5 MG PO SCH (10:06)
[2019-01-20] MEDS: NORVASC 5 MG PO SCH (10:06)
[2019-01-20] MEDS: SYNTHROID 25 MCG PO SCH (10:06)
[2019-01-20] MEDS: DELTASONE 20 MG PO SCH (10:06)
[2019-01-20] MEDS: ATARAX 25 MG PO SCH ×2 (10:06→21:40)
[2019-01-20] MEDS: FEOSOL 325 MG PO SCH (10:06)
[2019-01-20] MEDS: Zocor 10MG PO SCH (10:06)
[2019-01-20] MEDS ORDERED: PROVENTIL 2.5 MG/3 ML NEB IH PRN (10:50)
[2019-01-20] MEDS: NovoLOG Insulin SQ PRN ×3 (12:05→21:47)
--- NOTE | 2019-01-20 12:38 | PCM.NOTE ---
Date and Time: 01/20/19 1233 Subjective Assessment: Patient reports besides a headache this AM, she is feeling better. - Review of Systems Constitutional: No Symptoms Eyes: No Symptoms Ears, Nose, & Throat: No Symptoms Respiratory: No Symptoms Cardiac: No Symptoms Abdominal/Gastrointestinal: No Symptoms Genitourinary Symptoms: No Symptoms Musculoskeletal: No Symptoms Skin: No Symptoms Neurological: Headache Objective Exam General Appearance: no apparent distress, alert Neurologic Exam: alert, cooperative, normal mood/affect Skin Exam: normal color, warm, dry, other (left foot wrapped and dressed) Wound Assessment: Skin/Wound Assessment Wound/Incision Assessment Start: 01/18/19 00: 17 Text: Status: Active Freq: Q6H Protocol: Document 01/20/19 08:00 CL (Rec: 01/20/19 08:23 CL [id number]) Wound/Incision Assessment Left Foot Wound Assessment Shift Assessment Wound Type gross abnormality Dressing Status Dry & Intact Comment Dressing CDI, not removed per PT Wound Photo Photo Taken Yes Date: 01/18/19 Respiratory Exam: normal breath sounds, lungs clear, No crackles/rales, No rhonchi, No wheezing Cardiovascular Exam: regular rate/rhythm, No murmur, No friction rub, No gallop Gastrointestinal/Abdomen Exam: soft, normal bowel sounds, No tenderness, No distention, No mass Extremity Exam: other (no c/c/e (left foot with deformity and wrapped and dressed)) OBJECTIVE DATA Vital Signs: Vital Signs - 24 hr Temp Pulse Resp BP Pulse Ox 01/20/19 12:00 16 01/20/19 08:00 16 01/20/19 07:12 100 H 16 95 01/20/19 07:11 98.5 F 107 H 18 176/79 93 L 01/20/19 04:00 98.5 F 102 H 18 181/79 96 01/20/19 00:45 97 H 16 97 01/20/19 00:00 16 01/19/19 23:46 98.6 F 104 H 17 143/74 94 L 01/19/19 20:00 18 01/19/19 19:29 97.7 F 116 H 18 169/71 95 01/19/19 17:31 104 H 18 98 01/19/19 16:00 98.1 F 106 H 18 136/56 96 Oxygen-Last 24 hours O2 Percentage 2 Liters = 28% Pain Assessment - Last Documented Pain Intensity 5 Pain Scale Used 0-10 Pain Scale Intake and Output: Intake & Output 01/18/19 01/19/19 01/20/19 01/21/19 06:59 06:59 06:59 06:59 Intake Total 315 2279 2260 480 Output Total 3255 6186 2200 Balance -2935 -3871 60 480 Weight 89.8 kg 88.3 kg Lab Results: Accuchecks Date 01/20/19 Date 01/20/19 Date 01/19/19 Time 11:30 Time 07:30 Time 18:16 Accucheck Value: 325 Accucheck Value: 233 Accucheck Value: 406 Accucheck Value: 471 Lab Results-Last 24 Hours 01/19/19 01/19/19 01/19/19 Range/Units 13:03 13:03 14:43 WBC 5.7 (4.0-10.5) K/mm3 RBC 3.22 L (4.1-5.4) M/mm3 Hgb 8.4 L (12.0-16.0) gm/dl Hct 27.0 L (35-47) % MCV 83.9 (78-100) fl MCH 26.0 (26-32) pg MCHC 31.1 L (32-36) g/dl RDW 17.3 H (11.5-14.0) % Plt Count 182 (150-450) K/mm3 MPV 10.0 H (6-9.5) fl Gran % 86.1 H (36.0-66.0) % Eos # (Auto) 0.02 (0-0.5) Absolute Lymphs (auto) 0.43 L (1.0-4.6) Absolute Monos (auto) 0.34 (0.0-1.3) Lymphocytes % 7.5 L (24.0-44.0) % Monocytes % 5.9 (0.0-12.0) % Eosinophils % 0.3 (0.00-5.0) % Basophils % 0.2 (0.0-0.4) % Absolute Granulocytes 4.92 (1.4-6.9) Basophils # 0.01 (0-0.4) Sodium 131 L (137-145) mmol/L Potassium 4.9 (3.5-5.1) mmol/L Chloride 96 L (98-107) mmol/L Carbon Dioxide 23 (22-30) mmol/L Anion Gap 16.8 H (5-15) MEQ/L BUN 27 H (7-17) mg/dL Creatinine 1.07 H (0.52-1.04) mg/dL Estimated GFR 57.5 ML/MIN Glucose 545 H* 517 H* (74-106) mg/dL Calcium 8.2 L (8.4-10.2) mg/dL Slides for Path Review YES 01/20/19 01/20/19 Range/Units 05:47 05:47 WBC 5.2 (4.0-10.5) K/mm3 RBC 3.15 L (4.1-5.4) M/mm3 Hgb 8.2 L (12.0-16.0) gm/dl Hct 26.2 L (35-47) % MCV 83.2 (78-100) fl MCH 26.0 (26-32) pg MCHC 31.3 L (32-36) g/dl RDW 17.1 H (11.5-14.0) % Plt Count 158 (150-450) K/mm3 MPV 9.7 H (6-9.5) fl Gran % 86.6 H (36.0-66.0) % Eos # (Auto) 0.02 (0-0.5) Absolute Lymphs (auto) 0.48 L (1.0-4.6) Absolute Monos (auto) 0.19 (0.0-1.3) Lymphocytes % 9.3 L (24.0-44.0) % Monocytes % 3.7 (0.0-12.0) % Eosinophils % 0.4 (0.00-5.0) % Basophils % 0.0 (0.0-0.4) % Absolute Granulocytes 4.47 (1.4-6.9) Basophils # 0 (0-0.4) Sodium 134 L (137-145) mmol/L Potassium 5.1 (3.5-5.1) mmol/L Chloride 99 (98-107) mmol/L Carbon Dioxide 27 (22-30) mmol/L Anion Gap 13.9 (5-15) MEQ/L BUN 26 H (7-17) mg/dL Creatinine 0.93 (0.52-1.04) mg/dL Estimated GFR > 60.0 ML/MIN Glucose 233 H (74-106) mg/dL Calcium 8.6 (8.4-10.2) mg/dL Slides for Path Review YES Assessment/Plan (1) Pulmonary embolus Current Visit: Yes Status: Acute Assessment & Plan: Continue with Eliquis 10 mg po bid x 7 days (day 2) then [address] Peng Galan plans to see patient today. She is on room air. Discussed with patient that we decided to use Eliquis instead of warfarin. Code(s): I26.99 - OTHER PULMONARY EMBOLISM WITHOUT ACUTE COR PULMONALE (2) Diabetes type 2, controlled Current Visit: No Status: Acute Qualifiers: Diabetes mellitus alf insulin use: with alf use Diabetes mellitus complication status: with skin complications Assessment & Plan: Her blood glucoses were high yesterday. I am continuing to adjust to try to control her blood glucoses without significant lows which is one of the main reasons she was admitted. She will follow with her Rehab Department Manager as outpatient. Code(s): E11.9 - TYPE 2 DIABETES MELLITUS WITHOUT COMPLICATIONS (3) Cirrhosis Current Visit: No Status: Chronic Qualifiers: Ascites presence: with ascites Assessment & Plan: to see specialist as outpatient. (4) Unspecified open wound, left foot, subsequent encounter Current Visit: Yes Status: Acute Assessment & Plan: PT consulting. Hopefully she can see her surgeon as outpatient on Monday. Code(s): S91.302D - UNSPECIFIED OPEN WOUND, LEFT FOOT, SUBSEQUENT ENCOUNTER (5) COPD with exacerbation Current Visit: No Status: Acute Assessment & Plan: I have weaned her prednisone down to 20 mg daily today. Finishing course of doxycyline that was prescribed at time of discharge from [facility]. Code(s): J44.1 - CHRONIC OBSTRUCTIVE PULMONARY DISEASE W (ACUTE) EXACERBATION (6) Anemia of chronic disease Current Visit: Yes Status: Acute Assessment & Plan: Stable. Code(s): D63.8 - ANEMIA IN OTHER CHRONIC DISEASES CLASSIFIED ELSEWHERE (7) Hyponatremia Current Visit: Yes Status: Acute Assessment & Plan: Improving. Code(s): E87.1 - HYPO-OSMOLALITY AND HYPONATREMIA
[2019-01-20] MEDS: Colace 100 MG PO SCH (21:40)
[2019-01-20] MEDS: Cymbalta 30 MG Capsule PO SCH (21:45)
[2019-01-21] MEDS ORDERED: TROUGH DRUG LEVELS IJ ONE (05:30)
[2019-01-21] MEDS: ADVAIR 500-50 DISKUS IH SCH (06:50)
--- NOTE | 2019-01-21 09:35 | XRAY ---
Exam: Two-view chest from 01/21/2019. Comparison: CT of the chest with IV contrast from 01/17/2019 and AP portable chest film from 01/17/2019. Indication: Cigarette smoker, protocol for ventilation/perfusion nuclear lung scan. Findings: Upright PA and lateral chest films are submitted for evaluation. I again note a left-sided PICC line with the tip within the lateral aspect of the mid SVC pointing inferiorly. The transverse heart size is normal. Inflation of the lungs is a bit less than average. Prior mild mediastinal/bilateral perihilar lymphadenopathy seen on the CT of the chest with IV contrast from 01/17/2019 is more difficult to appreciate on the current plain films. I again note abnormal increased interstitial lung markings with some alveolar opacities and bronchial wall thickening at the right lung base, left perihilar projection, and left lung base. This appears similar to the portable chest film from 01/17/2019 as well as the two-view chest series from 09/14/2018 and 05/23/2018. I do not see a definite superimposed dense consolidation, but it would be difficult to in exclude a superimposed acute inflammatory or infectious process upon chronic interstitial lung disease. Only the upper two thirds the right lung, the left lung apex, and the lateral left lung base remain relatively unaffected. There is no pleural fluid. No pneumothorax is seen. Surgical clips consistent with prior cholecystectomy are seen within the right upper quadrant. The bones are demineralized. No acute osseous process is seen. Impression: 1. I again see evidence of significant bilateral asymmetric interstitial lung disease with superimposed fine airspace opacities, but no dense focal consolidated areas. Similar findings are seen dating back to a CT of the chest from 07/08/2016. This would suggest a chronic process, although some superimposed acute inflammation or infection cannot be entirely excluded. I see no associated pleural effusion. 2. Unchanged position of left-sided PICC line.
[2019-01-21] MEDS: VANCOCIN 1 GM VIAL*** 1 GM in Sodium Chloride 0.9% 250 ML 250 ML IV SCH (10:22)
[2019-01-21] MEDS: Zestril 5 MG PO SCH (10:23)
[2019-01-21] MEDS: ELIQUIS 2.5 MG TABLET PO SCH (10:23)
[2019-01-21] MEDS: BUMEX 1 MG PO SCH (10:23)
[2019-01-21] MEDS: ATARAX 25 MG PO SCH (10:23)
[2019-01-21] MEDS: SYNTHROID 25 MCG PO SCH (10:24)
[2019-01-21] MEDS: Vibramycin 100 MG PO SCH (10:24)
[2019-01-21] MEDS: Protonix 40MG Tablet PO SCH (10:24)
[2019-01-21] MEDS: NORVASC 5 MG PO SCH (10:24)
[2019-01-21] MEDS: DELTASONE 20 MG PO SCH (10:24)
[2019-01-21] MEDS: Zocor 10MG PO SCH (10:24)
[2019-01-21] MEDS: NovoLOG Insulin SQ SCH ×2 (10:24→12:05)
[2019-01-21] MEDS: FEOSOL 325 MG PO SCH (10:24)
[2019-01-21] MEDS: Lantus Insulin SQ SCH (10:25)
--- NOTE | 2019-01-21 11:21 | XRAY ---
Exam: Radionuclide ventilation perfusion lung scan from 01/21/2019. Comparison: Two-view chest radiograph series from 01/21/[address] of the chest with IV contrast from 01/17/2019. Indication: PE. Additional history: Patient has history of shortness of breath, COPD, asthma, and chronic interstitial lung disease. Recent CT scan of the chest with IV contrast revealed a small, partially occluding filling defect within a right lower lobe pulmonary artery. Dose: Ventilation scan - 38.4 mCi of technetium 99m MDP DTPA aerosol Perfusion scan - 6 mCi of technetium 99m MAA IV Technique: Anterior, posterior, both lateral, both posterior oblique, and both anterior oblique projections of the chest were obtained during the ventilation and perfusion lung phases. Findings: There are multiple bilateral ventilation defects, somewhat larger within the left lung than the right lung. I believe these ventilation defects are mostly matched on the perfusion scan. The corresponding chest radiograph is abnormal with left perihilar and bibasilar (right greater than left) increased interstitial lung markings with fine air space opacities. According to the modified PIOPED criteria for pulmonary embolism, the best fit for these images would be an intermediate probability for pulmonary embolism. Impression: 1. Intermediate probability of pulmonary embolism.
[2019-01-21 11:39] VITALS: BP 163/79; PULSE 82; O2SAT 98
--- NOTE | 2019-01-21 11:50 | XRAY ---
Exam: Bilateral lower extremity duplex Doppler venous ultrasound exam from 01/21/2019. Comparison: Left lower extremity duplex Doppler venous ultrasound exam from 04/19/2017. Indication: PE. Technique: Bilateral lower extremity duplex Doppler venous ultrasound exam was obtained in the usual manner using grayscale images and color flow images. Findings: Normal compressibility, Doppler waveforms, and color flow imaging was seen within route service representative sections of the common femoral vein, proximal, mid, and distal superficial femoral vein, popliteal vein, and distal posterior tibial veins bilaterally. I also noted normal compression of the greater saphenous vein and peroneal vein bilaterally. There was normal color flow within the profunda femoral vein bilaterally. I saw no evidence of echogenic clot within any of the deep veins. There was normal Doppler signal augmentation within all route service representative sections of the common femoral vein, superficial femoral vein, and popliteal vein bilaterally. Impression: 1. No evidence of DVT is seen within either lower extremity. Also, no definite superficial venous thrombosis is seen within the greater saphenous vein in either lower extremity.
--- NOTE | 2019-01-21 12:17 | CONS ---
CONSULT DATE: 01/20/2019 HISTORY: Miss Heather Bonilla is a 53 year-old woman with history of chronic obstructive pulmonary disease/obstructive airway disease who was brought in after the patient was found poorly responsive. She was noted to have an episode of hypoglycemia, this was corrected. However, the patient also had a CT chest performed through the emergency room showed a small right lower lobe pulmonary embolus. She was on anticoagulation before with history of deep venous thrombosis about a year ago. The patient reportedly took Eliquis for six months and stopped it upon medical advice of her polishing pad mounter. She is unsure of the doctor and states it was likely Dr. Madrid. The patient has had history of obstructive airway disease. She has not had any major exacerbations in the past. She does use inhaled bronchodilators along with nebulizer. PAST MEDICAL HISTORY: Positive for history of cirrhosis. Patient is unclear of the etiology, reportedly had fatty liver. History of diabetes mellitus, hypertension, anxiety, depression, hypothyroidism, gastroesophageal reflux. PAST SURGICAL HISTORY: No recent surgeries. PERSONAL AND SOCIAL HISTORY: Patient has been a former smoker. She also reportedly did drink in excess in the past. Denies any history of hepatitis. MEDICATIONS: Home and current medications are reviewed. ALLERGIES: ALLERGIES NOTED. PHYSICAL EXAMINATION: A middle aged woman appears comfortable, able to speak without difficulty, remains on room air. Vital signs noted. HEENT: Normocephalic. Oral exam is unremarkable. NECK: Supple. CVS: First and second heart sounds normal, regular, rhythmic. RESPIRATORY: Shows diminished breath sounds, clear to auscultation. ABDOMEN: Soft. No significant edema is noted. LABORATORY DATA AND TESTS: CT chest preliminary report reviewed. ASSESSMENT: This is a 53 year old woman admitted with: 1) Altered mental status from hypoglycemia now with fluctuating blood sugars as noted. 2) Finding of right lower lobe pulmonary embolus with prior history of deep venous thrombosis. 3) Underlying chronic obstructive pulmonary disease, stable. 4) Fluctuating blood. The patient is still on prednisone 20 mg a day, indication? 5) Hypertension, diabetes and other comorbids as listed above. RECOMMENDATIONS: 1) Discussed with patient risks, benefits of anticoagulation along with options. She has been on Eliquis before and upon discussion with Dr. Ayala yesterday I recommended that the patient be restarted back on Eliquis for at least six months at the end of which will repeat CT followed by hypercoag work up. 2) Obtain lower extremity venous Doppler's to rule out additional clot burden. 3) Continue bronchodilators. 4) Reduce steroids if possible which may allow better control of hyperglycemia. 5) The patient is maintaining good oxygen saturation on room air. Ambulate as tolerated and discharge home, follow up with me in outpatient setting in the next weeks or earlier. 6) The patient has a foot wound which is open on physical examination managed by a polishing pad mounter. Thank you for allowing me to participate in the care of Heather Bonilla.
--- NOTE | 2019-01-21 15:09 | PCM.DCORD ---
- Discharge Discharge Date: 01/21/19 Disposition: Home, Self-Care Condition: Fair Prescriptions: New Apixaban [Eliquis] 5 mg PO UD #70 tablet Insulin Glargine [Lantus Insulin] 26 unit SQ AMINSULIN #10 ml Lisinopril 5 mg [Zestril 5 MG] 5 mg PO DAILY #90 tablet Continue Duloxetine HCl 30 mg [Cymbalta 30 MG Capsule] 60 mg PO HS Omeprazole 20 MG [Prilosec 20 mg] 20 mg PO DAILY Budesonide/Formoterol Fumarate [Symbicort 160-4.5 Mcg Inhaler] 2 puff IH BID Albuterol Sulfate [Proair Hfa] 2 puff IH Q4HPRN PRN PRN Reason: RESP Pravastatin Sodium [Pravachol] 10 mg PO DAILY Gabapentin [Gralise] 600 mg PO TID Docusate Sodium 100 mg [Colace 100 MG] 100 mg PO HS Ergocalciferol (Vitamin D2) [Vitamin D] 50,000 units PO UD Hydroxyzine HCl 10 mg PO BID Ferrous Sulfate 325 mg PO DAILY Bumetanide 2 mg PO DAILY Levothyroxine Sodium 25 Mcg [Synthroid 25 Mcg] 25 mcg PO DAILY Amlodipine Besylate 5 mg PO DAILY Changed Insulin Lispro [Humalog] 8 unit SQ TIDWM #0 Discontinued Aspirin 81 gm Chew [Baby Aspirin 81 mg Chew] 81 mg PO DAILY Prednisone 20 mg [Deltasone 20 mg] 20 mg PO BID Doxycycline Hyclate [Vibramycin] 100 mg PO BID Additional Instructions: Keep your appointment at the [facility] with Dr. Adhikari tomorrow. Schedule a follow up with Dr. Sutton as soon as possible. Check your blood glucoses before meals and before supper. Continue your Cubicin as ordered by your infectious disease doctor. Go to ER if you have blood in your stool, dark black stools, or any concerns. Follow up with: VARSHA LEVINE [ACTIVE STAFF] - 02/04/19 3:00 pm (at [place] ) TERRY TRONCOSO [Primary Care Provider] - 05/24/19 9:45 am WARD SUTTON [NON-STAFF PHY W/O PRIVILEGES] - 1 Week BILL ADHIKARI III [NON-STAFF PHY W/O PRIVILEGES] - 1 Week
--- NOTE | 2019-01-23 09:53 | DS ---
DISCHARGE DIAGNOSES: 1) RIGHT LUNG PULMONARY EMBOLUS. 2) DIABETES MELLITUS TYPE 2, CONTROLLED. 3) CIRRHOSIS. 4) LEFT FOOT WOUND. 5) CHRONIC OBSTRUCTIVE PULMONARY DISEASE WITH EXACERBATION. 6) ANEMIA OF CHRONIC DISEASE. 7) HYPONATREMIA. 8) OSTEOMYELITIS. 9) HYPERTENSION. DISCHARGE PHYSICAL EXAMINATION: VITALS: Temperature current 98.8F, temperature max 99.1F, heart rate 82, respiratory rate 18, blood pressure 162/79. Oxygen saturation 98% on room air. GENERAL: The patient is a pleasant talkative lady sitting up on the side of the bed in no acute distress. CVS: She has a regular rate and rhythm. No murmurs, gallops or rubs. CHEST: Clear to auscultation bilaterally. No crackles or wheezes. ABDOMEN: Soft, nontender, nondistended with normal bowel sounds. EXTREMITIES: Her left foot has known deformity, is dressed with some blood marking the dressing. HOSPITAL COURSE: 1) PULMONARY EMBOLISM: She was found to have a tiny right lower lobe pulmonary embolism on chest CT. She was initially started on Lovenox 1 mg/kg and this was changed to Eliquis and she finished two days of 10 mg p.o. b.i.d. and will be discharged on 10 mg p.o. b.i.d. for five more days and then to change to [address] Zachery Galan, Research Staff Member, saw her while she was in the hospital and agreed to this treatment. She also had Doppler's of her lower extremities that were negative and a VQ scan that was intermediate probability for pulmonary embolism. I discussed the risks and benefits of anticoagulation and her nurse reported that Dr. Zachery Galan also discussed these with her. She reported that she had been on Eliquis in the past. She is going to follow up with Dr. Galan this coming month in early February. 2) DIABETES MELLITUS TYPE 2, CONTROLLED: She came in with hypoglycemic episode. Her blood sugars have been hard to control and have mostly been high but more in the 200's at the time of discharge. She is not to use her insulin pump until she sees Dr. Navarro again. Please see the discharge order for her current regimen. 3) CIRRHOSIS: She reported no abdominal discomfort during her hospitalization and she plans to follow up with Dr. Valencia, [employer], as an outpatient. 4) LEFT FOOT WOUND: Dr. Madrid's office was not open during her hospitalization. She has already scheduled appointment to see him tomorrow. She was seen by PT while she was here and they used Alginate and dressing, this was kept on over the weekend and redressed the day of her discharge. According to the physical therapist the wound did look better. This had been dressed and wrapped over the weekend. 5) CHRONIC OBSTRUCTIVE PULMONARY DISEASE WITH EXACERBATION: She has completed a course of doxycycline and prednisone per her discharge from [facility]. Dr. Zachery Galan did not feel like she needed to be on prednisone so I stopped this at discharge as well as the doxycycline. 6) ANEMIA OF CHRONIC DISEASE: Her hemoglobin was stable at just above 8 during her hospitalization. 7) HYPONATREMIA: Improved during her hospital course. At the time of discharge, her sodium was 134. 8) OSTEOMYELITIS: She was continued on Vancomycin while she was here as her note from [facility] said she was on Vancomycin when she was there with them. She reports she has Cubicin at home per her infectious disease doctor which she plans to give to herself and has a supply at home. 9) HYPERTENSION: I started her on a low dose of lisinopril which may need to be adjusted as an outpatient. DISCHARGE MEDICATIONS: Please see the discharge order. FOLLOW UP: Please see the discharge order. DISPOSITION: The patient was discharged to home in fair condition.
== END 2019-01-21 15:42 | disposition home or self-care (01) | DRG 176 ==
LOC: ED 16:37 → MED SURG 23:06 → OBSVTOIN 01-18 09:13
PROVIDERS: ADMIT Internal Medicine; ATTEND Internal Medicine
DX: I26.99 Other pulmonary embolism without acute cor pulmonale (principal); E87.1 Hypo-osmolality and hyponatremia; J44.1 Chronic obstructive pulmonary disease with (acute) exacerbation; E11.649 Type 2 diabetes mellitus with hypoglycemia without coma; S91.302D Unspecified open wound, left foot, subsequent encounter; I10 Essential (primary) hypertension; F17.200 Nicotine dependence, unspecified, uncomplicated; K74.60 Unspecified cirrhosis of liver; R51 Headache; E78.5 Hyperlipidemia, unspecified; E03.9 Hypothyroidism, unspecified; Z86.711 Personal history of pulmonary embolism; Z79.4 Long term (current) use of insulin; Z79.01 Long term (current) use of anticoagulants; Z79.899 Other long term (current) drug therapy; D63.8 Anemia in other chronic diseases classified elsewhere; Z98.890 Other specified postprocedural states
CPT/HCPCS: 36000; 36415; 36600; 51702; 70450; 71045; 71046; 71260; 80048; 80053; 80202; 80307; 81001; 82140; 82375; 82803; 82947; 82962; 83036; 83880; 84134; 84484; 85025; 85379; 85610; 93005; 93041; 93268; 93970; 94002; 94150; 94640; 94760; 94762; 96360; 96365; 96372; 96374; 96375; 97161; 97530; 99285; G0378; 78582; A6457; A9540; A9567; J1650; J1940; J2310; J3370; J7609; A9270-GY

== ENCOUNTER 2019-01-29 13:06 | Emergency (ER) | payer MEDICARE ==
[2019-01-29] MEDS ORDERED: Sodium Chloride 0.9% 1000 ML 1,000 ML IV STA (13:14)
[2019-01-29] MEDS ORDERED: DUONEB 0.5-3 MG/3 ml Neb IH ONE ×2 (13:19→13:41)
--- NOTE | 2019-01-29 13:25 | ERPHSYRPT ---
- History of Present Illness Time Seen by Provider: 01/29/19 13:15 Source: patient Exam Limitations: no limitations Physician History: 53-year-old white female with history of asthma, high blood pressure, COPD, and pneumonia, diabetes, ORIF of her foot with multiple surgeries. Patient brought by medics with complaint that patient had taken too many of her Nucynta 75 mg as many as 6-7 tablets, also had taken 2 times her normal dosages of her regular medication. Patient was noted to be decreased level of consciousness by the medics she was given Narcan patient also was noted to have a low pressure. Patient states she has a chronic foot infection which she sees a local physician secondary to this he states he took theNucnta secondary to pain in that foot. Patient does have obvious wheezing she has no chest pain. Past medical history includes asthma, high blood pressure, COPD, pneumonia, diabetes type 2, fractures, GERD, anxiety, depression, left ankle fracture with multiple surgeries, wound in the center of her left foot Past surgical history includes tubal ligation, cholecystectomy, exploratory laparotomy, , hysterectomy, ORIF left foot. Timing/Duration: today Severity: moderate Modifying Factors: Improves With: medication (took too many of nucnta.) Associated Symptoms: shortness of breath, cough, other (Left foot pain with chronic draining wound left foot), No nausea, No vomiting, No abdominal pain, No heartburn, No diaphoresis, No chills, No chest pain, No fever, No headaches, No loss of appetite, No malaise, No rash, No syncope, No seizure, No weakness Allergies/Adverse Reactions: adhesive tape Allergy (Mild, Verified 01/29/19 13:29) Hives bee stings Allergy (Mild, Uncoded 01/18/19 00:31) Hives Home Medications: Duloxetine HCl 30 mg [Cymbalta 30 MG Capsule] 60 mg PO HS 11/17/12 [ History] Albuterol Sulfate [Proair Hfa] 2 puff IH Q4HPRN PRN 04/21/15 [History] Budesonide/Formoterol Fumarate [Symbicort 160-4.5 Mcg Inhaler] 2 puff IH BID [History] Omeprazole 20 MG [Prilosec 20 mg] 20 mg PO DAILY 04/21/15 [History] Pravastatin Sodium [Pravachol] 10 mg PO DAILY 02/07/16 [History] Gabapentin [Gralise] 600 mg PO TID 11/11/16 [History] Amlodipine Besylate 5 mg PO DAILY 01/18/19 [History] Bumetanide 2 mg PO DAILY 01/18/19 [History] Docusate Sodium 100 mg [Colace 100 MG] 100 mg PO HS 01/18/19 [History] Ergocalciferol (Vitamin D2) [Vitamin D] 50,000 units PO UD 01/18/19 [History] Ferrous Sulfate 325 mg PO DAILY 01/18/19 [History] Hydroxyzine HCl 10 mg PO BID 01/18/19 [History] Levothyroxine Sodium 25 Mcg [Synthroid 25 Mcg] 25 mcg PO DAILY 01/18/19 [ History] Tapentadol HCl [Nucynta] 75 mg PO Q8H 01/29/19 [History] Hx Tetanus, Diphtheria Vaccination/Date Given: No Hx Influenza Vaccination/Date Given: Yes Hx Pneumococcal Vaccination/Date Given: Yes - Review of Systems Constitutional: Other (decreased level of consciousness at home), No Fever, No Chills Eyes: No Symptoms Ears, Nose, & Throat: No Symptoms Respiratory: Cough, Dyspnea, Wheezing Cardiac: No Chest Pain, No Edema, No Syncope Abdominal/Gastrointestinal: No Abdominal Pain, No Nausea, No Vomiting, No Diarrhea Genitourinary Symptoms: No Dysuria Musculoskeletal: Other (left foot pain chronic draining wound left foot) Skin: Other (chronic draining wound left foot) Neurological: No Dizziness, No Focal Weakness, No Sensory Changes Psychological: No Symptoms, Other (possible overdose nucnta) Endocrine: No Symptoms - Past Medical History Pertinent Past Medical History: Yes Neurological History: No Pertinent History ENT History: No Pertinent History Cardiac History: Hypertension Respiratory History: Asthma, COPD, Pneumonia Endocrine Medical History: Diabetes Type II Musculoskeletal History: Fractures GI Medical History: GERD, Other History: No Pertinent History Psycho-Social History: Anxiety, Depression Female Reproductive Disorders: No Pertinent History Other Medical History: left ankle fx with mult surgeries. wound center left foot - Past Surgical History Past Surgical History: Yes Neuro Surgical History: No Pertinent History Cardiac: No Pertinent History Respiratory: No Pertinent History Gastrointestinal: Cholecystectomy, Exploratory Laparoscopy Genitourinary: No Pertinent History Musculoskeletal: No Pertinent History Female Surgical History: Section, Hysterectomy Other Surgical History: foot surgery, screw placed in left big toe, removal, and antibiotic beed placement. mult lt foot surgeries - Social History Smoking Status: Current every day smoker How long have you smoked: 35 years Exposure to second hand smoke: Yes Drug Use: none Patient Lives Alone: No - Nursing Vital Signs Nursing Vital Signs: Initial Vital Signs Temperature 97.9 F 01/29/19 13:07 Pulse Rate 76 01/29/19 13:07 Blood Pressure 153/64 01/29/19 13:07 O2 Sat by Pulse Oximetry 97 01/29/19 13:07 Pain Scale Pain Intensity 7 - Physical Exam General Appearance: other (Well-developed white female alert oriented x3 garbled wheezes) Eye Exam: PERRL/EOMI, eyes nml inspection Ears, Nose, Throat Exam: normal ENT inspection, TMs normal, pharynx normal, moist mucous membranes Neck Exam: normal inspection, non-tender, supple, full range of motion Respiratory Exam: wheezing (wheezes throughout) Cardiovascular Exam: regular rate/rhythm, normal heart sounds, normal peripheral pulses Gastrointestinal/Abdomen Exam: soft, normal bowel sounds, No tenderness, No mass Extremity Exam: other (left foot with dirty dressing. dressing is removed by the patient's nurse. patient without erythema to the left ankle there does appear to be exposed bone in the left ankle with overlying exudate on the medial surface of the left ankle.) Neurologic Exam: alert, 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, cooperative, desk attendant II-XII nml as tested, normal mood/affect, nml cerebellar function, nml station & gait, sensation nml, No motor deficits Skin Exam: other (Left ankle with dirty dressing, this is removed by the patient 's nurse. Left ankle with sutures in place medially, no erythema exposed what appears to be bones with overlying exudate medially.) - Course Nursing assessment & vital signs reviewed: Yes EKG Interpreted by Me: RATE (71 bpm), Sinus Rhythm, NORMAL AXIS, Other (EKG: Sinus rhythmwwith large amount of artifact, 71 beats per minute, normal axis, no acute ST or T wave changes noted) - Radiology Exams Chest X-ray Interpretation: Discussed w/ radiologist (chest x-ray: Moderate worsening diffuse bilateral interstitial alveolar opacities without consolidation or large effusion. Heart is not enlarged is stable left PICC line. Remaining chest unremarkable) Ordered Tests: Active Orders 24 hr Category Date Time Status Inspector Structural Bonding STAT Care 01/29/19 13:14 Active EKG-ER Only STAT Care 01/29/19 13:14 Active IV Insertion STAT Care 01/29/19 13:14 Active Pulse Oximetry (ED) STAT Care 01/29/19 13:19 Active CHEST 1 VIEW (PORTABLE) Stat Exams 01/29/19 13:18 Completed ACETAMINOPHEN Stat Lab 01/29/19 13:23 Completed BLOOD CULTURE Stat Lab 01/29/19 13:42 Received CBC W DIFF Stat Lab 01/29/19 13:23 Completed CMP Stat Lab 01/29/19 13:23 Completed CULTURE,URINE Stat Lab 01/29/19 14:15 Received ETHYL ALCOHOL Stat Lab 01/29/19 13:23 Completed Lactic Acid Stat Lab 01/29/19 13:18 Completed Potassium Stat Lab 01/29/19 16:11 Ordered SALICYLATE Stat Lab 01/29/19 13:23 Completed UA W/RFX UR CULTURE Stat Lab 01/29/19 14:15 Completed Urine Triage Profile Stat Lab 01/29/19 Completed VENOUS BLOOD GAS Stat Lab 01/29/19 13:14 Completed Respiratory Therapy Assessment DAILY RT 01/30/19 13:44 Completed Medication Summary Generic Name Dose Route Start Last Admin Trade Name Freq PRN Reason Stop Dose Admin Ceftriaxone Sodium/Dextrose 1 g in 50 mls @ 100 mls/hr 01/29/19 16:01 16:14 Rocephin 1 Gm-D5w 50 Ml Bag IV 01/29/19 16:30 100 mls/hr STAT STA 100 mls/hr Administration Discontinued Medications Generic Name Dose Route Start Last Admin Trade Name Freq PRN Reason Stop Dose Admin Albuterol/Ipratropium 3 ml 01/29/19 13:19 01/29/19 13:44 Duoneb 0.5-3 Mg/3 Ml Neb IH 01/29/19 13:20 3 ml STAT ONE Administration Albuterol/Ipratropium Confirm 01/29/19 13:41 Duoneb 0.5-3 Mg/3 Ml Neb Administered 01/29/19 13:42 Dose 3 ml IH .STK-MED ONE Sodium Chloride 1,000 mls @ 999 mls/hr 01/29/19 13:14 01/29/19 14:49 Sodium Chloride 0.9% 1000 Ml IV 01/29/19 14:14 Infused .Q1H1M STA Infusion Sodium Chloride Confirm 01/29/19 13:41 Sodium Chloride 0.9% 1000 Ml Administered 01/29/19 13:42 Dose 1,000 mls @ ud .ROUTE .STK-MED ONE Ceftriaxone Sodium/Dextrose Confirm 01/29/19 16:09 Rocephin 1 Gm-D5w 50 Ml Bag Administered 01/29/19 16:10 Dose 1 g in 50 mls @ ud IV .STK-MED ONE Lab/Rad Data: Laboratory Result Diagrams 01/29/19 13:23 01/29/19 13:23 Laboratory Results 01/29/19 01/29/19 01/29/19 Range/Units Unknown 14:15 13:23 WBC (4.0-10.5) K/mm3 RBC (4.1-5.4) M/mm3 Hgb (12.0-16.0) gm/dl Hct (35-47) % MCV (78-100) fl MCH (26-32) pg MCHC (32-36) g/dl RDW (11.5-14.0) % Plt Count (150-450) K/mm3 MPV (6-9.5) fl Gran % (36.0-66.0) % Eos # (Auto) (0-0.5) Absolute Lymphs (auto) (1.0-4.6) Absolute Monos (auto) (0.0-1.3) Lymphocytes % (24.0-44.0) % Monocytes % (0.0-12.0) % Eosinophils % (0.00-5.0) % Basophils % (0.0-0.4) % Absolute Granulocytes (1.4-6.9) Basophils # (0-0.4) pO2/FiO2 Ratio % VBG pH (7.32-7.42) VBG pCO2 at Pat Temp (42-55) mm/Hg VBG pO2 at Pat Temp (25-40) mm/Hg VBG HCO3 (22-28) meq/L VBG O2 Sat (Radha) (95-100) VBG Base Excess (-2.0-2.0) VBG Hemoglobin VBG Carboxyhemoglobin (0.0-6.9) % T HGB POC Potassium (3.5-5.1) Sodium 129 L (137-145) mmol/L Potassium 5.4 H (3.5-5.1) mmol/L Chloride 96 L (98-107) mmol/L Carbon Dioxide 24 (22-30) mmol/L Anion Gap 14.4 (5-15) MEQ/L BUN 34 H (7-17) mg/dL Creatinine 1.75 H (0.52-1.04) mg/dL Estimated GFR 32.6 ML/MIN Glucose 175 H (74-106) mg/dL Lactic Acid (0.4-2.0) Calcium 8.4 (8.4-10.2) mg/dL Total Bilirubin 0.70 (0.2-1.3) mg/dL AST 29 (14-36) U/L ALT 25 (0-35) U/L Alkaline Phosphatase 222 H (38-126) U/L Serum Total Protein 6.9 (6.3-8.2) g/dL Albumin 3.2 L (3.5-5.0) g/dL Urine Color YELLOW (YELLOW) Urine Appearance CLEAR (CLEAR) Urine pH 5.0 (5-6) Ur Specific [place] 1.006 (1.005-1.025) Urine Protein 30 (Negative) Urine Ketones NEGATIVE (NEGATIVE) Urine Blood SMALL (0-5) Ubaldo/ul Urine Nitrite NEGATIVE (NEGATIVE) Urine Bilirubin NEGATIVE (NEGATIVE) Urine Urobilinogen NEGATIVE (0-1) mg/dL Ur Leukocyte Esterase NEGATIVE (NEGATIVE) Urine WBC (Auto) 0-2 (0-5) /HPF Urine RBC (Auto) 0-2 (0-2) /HPF U Hyaline Cast (Auto) 6-10 (0-2) /LPF U Epithel Cells (Auto) NONE (FEW) /HPF Urine Bacteria (Auto) FEW (NEGATIVE) /HPF Urine Mucus (Auto) SLIGHT (NEGATIVE) /HPF Urine Culture Reflexed YES (NO) Urine Glucose NEGATIVE (NEGATIVE) mg/dL Salicylates < 1.0 L (2-20) mg/dL Urine Opiates Level NEGATIVE (NEGATIVE) Ur Methadone NEGATIVE (NEGATIVE) Acetaminophen < 10 L (10-30) ug/ml Urine Barbiturates NEGATIVE (NEGATIVE) Ur Phencyclidine (PCP) NEGATIVE (NEGATIVE) Urine Amphetamine NEGATIVE (NEGATIVE) U Benzodiazepine Level NEGATIVE (NEGATIVE) Urine Cocaine NEGATIVE (NEGATIVE) Urine Marijuana (THC) NEGATIVE (NEGATIVE) Ethyl Alcohol < 10 (0-10) mg/dL 01/29/19 01/29/19 01/29/19 Range/Units 13:23 13:18 13:14 WBC 10.1 (4.0-10.5) K/mm3 RBC 3.20 L (4.1-5.4) M/mm3 Hgb 8.4 L (12.0-16.0) gm/dl Hct 26.2 L (35-47) % MCV 81.9 (78-100) fl MCH 26.2 (26-32) pg MCHC 32.1 (32-36) g/dl RDW 19.0 H (11.5-14.0) % Plt Count 210 (150-450) K/mm3 MPV 9.9 H (6-9.5) fl Gran % 73.6 H (36.0-66.0) % Eos # (Auto) 0.23 (0-0.5) Absolute Lymphs (auto) 1.41 (1.0-4.6) Absolute Monos (auto) 0.99 (0.0-1.3) Lymphocytes % 14.0 L (24.0-44.0) % Monocytes % 9.8 (0.0-12.0) % Eosinophils % 2.3 (0.00-5.0) % Basophils % 0.3 (0.0-0.4) % Absolute Granulocytes 7.40 H (1.4-6.9) Basophils # 0.03 (0-0.4) pO2/FiO2 Ratio 36.0 % VBG pH 7.26 L (7.32-7.42) VBG pCO2 at Pat Temp 52 (42-55) mm/Hg VBG pO2 at Pat Temp 22 L (25-40) mm/Hg VBG HCO3 23.3 (22-28) meq/L VBG O2 Sat (Radha) 35.6 L (95-100) VBG Base Excess -3.8 L (-2.0-2.0) VBG Hemoglobin 8.7 VBG Carboxyhemoglobin 3.8 (0.0-6.9) % T HGB POC Potassium 5.1 (3.5-5.1) Sodium (137-145) mmol/L Potassium (3.5-5.1) mmol/L Chloride (98-107) mmol/L Carbon Dioxide (22-30) mmol/L Anion Gap (5-15) MEQ/L BUN (7-17) mg/dL Creatinine (0.52-1.04) mg/dL Estimated GFR ML/MIN Glucose (74-106) mg/dL Lactic Acid 0.6 (0.4-2.0) Calcium (8.4-10.2) mg/dL Total Bilirubin (0.2-1.3) mg/dL AST (14-36) U/L ALT (0-35) U/L Alkaline Phosphatase (38-126) U/L Serum Total Protein (6.3-8.2) g/dL Albumin (3.5-5.0) g/dL Urine Color (YELLOW) Urine Appearance (CLEAR) Urine pH (5-6) Ur Specific [place] (1.005-1.025) Urine Protein (Negative) Urine Ketones (NEGATIVE) Urine Blood (0-5) Ubaldo/ul Urine Nitrite (NEGATIVE) Urine Bilirubin (NEGATIVE) Urine Urobilinogen (0-1) mg/dL Ur Leukocyte Esterase (NEGATIVE) Urine WBC (Auto) (0-5) /HPF Urine RBC (Auto) (0-2) /HPF U Hyaline Cast (Auto) (0-2) /LPF U Epithel Cells (Auto) (FEW) /HPF Urine Bacteria (Auto) (NEGATIVE) /HPF Urine Mucus (Auto) (NEGATIVE) /HPF Urine Culture Reflexed (NO) Urine Glucose (NEGATIVE) mg/dL Salicylates (2-20) mg/dL Urine Opiates Level (NEGATIVE) Ur Methadone (NEGATIVE) Acetaminophen (10-30) ug/ml Urine Barbiturates (NEGATIVE) Ur Phencyclidine (PCP) (NEGATIVE) Urine Amphetamine (NEGATIVE) U Benzodiazepine Level (NEGATIVE) Urine Cocaine (NEGATIVE) Urine Marijuana (THC) (NEGATIVE) Ethyl Alcohol (0-10) mg/dL - Progress Progress: improved Progress Note: 01/29/19 15:28 53-year-old white female with history of asthma, high blood pressure, COPD, pneumonia, diabetes type 2 Brought by medics with complaint of possible overdose of Nucynta. Patient apparently with decreased level of consciousness at home in improved after receiving Narcan from Medics. Patient is now somewhat more alert she does however have bilateral rhonchi and wheezes. Chest x-ray remarkable for moderate worsening of diffuse bilateral interstitial alveolar opacities without consolidation or large effusion Patient has received duo neb treatment Patient apparently needs to be monitored for at least 4 hours after last Narcan received (just prior to arrival) Will contact Dr. olivas and discuss the patient's case with her 01/29/19 15:49 I discussed the patient's case with Dr. olivas she states that the patient was admitted to this hospital one week ago patient with severe ulceration of her left ankle which has been been taking care of by wound care physician. She states that she has been unable to get the patient to present for continuing care. Nurses have actually stated that the patient to was to see the wound care physician today and consideration was being given to discussing possible amputation of the left foot with her. Dr. olivas feels like the patient needs to go to [facility] where she can have specialist care she states she has chronic liver problems. Patient does have a somewhat elevated potassium of 5.4 at this time. Will go ahead and discuss the case with [facility] one call. And discuss possible transfer. Impression 1Nucynta overdose. 2. Possible aspiration 3. Chronic wound infection left ankle, 4. Hyperkalemia 01/29/19 16:12 Rocephin 1 g IV was ordered for the patient, it should be noted that the patient did state that she was on [place] at home for her left ankle however it is unclear how long it has been since she receivedthis Therefore the Rocephin was ordered. The patient's case was discussed with Dr. Cuellar who has accepted the patient for transfer - Departure Departure Disposition: Transfer Clinical Impression: Decreased level of consciousness, Nucynta overdose, Hyperkalemia, chronic infection left ankle Aspiration into lower respiratory tract Qualifiers: Encounter type: initial encounter Qualified Code(s): T17.800A - Unspecified foreign body in other parts of respiratory tract causing asphyxiation, initial encounter Condition: Fair Critical Care Time: No Referrals: TERRY OLIVAS [Primary Care Provider] -
[2019-01-29 13:36] LABS: BASOPHIL % 0.3 % (0.0-0.4); Basophil (Absolute #) 0.03 (0-0.4); Eosinophil % 2.3 % (0.00-5.0); Eosinophil (Absolute #) 0.23 (0-0.5); Granulocytes % 73.6 % (36.0-66.0); Hematocrit 26.2 % (35-47); Hemoglobin 8.4 gm/dl (12.0-16.0); Lymphocyte (Absolute #) 1.41 (1.0-4.6); Mean Cell Volume 81.9 fl (78-100); Mean Corpuscular Hgb Concent. 32.1 g/dl (32-36); Mean Platelet Volume 9.9 fl (6-9.5); Monocyte (Absolute #) 0.99 (0.0-1.3); Monocytes % 9.8 % (0.0-12.0); Platelet Count 210 K/mm3 (150-450); White Blood Count 10.1 K/mm3 (4.0-10.5)
[2019-01-29] MEDS ORDERED: Sodium Chloride 0.9% 1000 ML 1,000 ML ONE (13:41)
[2019-01-29 13:43] LABS: Mean Corpuscular Hemoglobin 26.2 pg (26-32)
[2019-01-29 13:47] LABS: ALBUMIN 3.2 g/dL (3.5-5.0); ALKALINE PHOSPHATASE 222 U/L (38-126); ANION GAP 14.4 MEQ/L (5-15); BLOOD UREA NITROGEN 34 mg/dL (7-17); CHLORIDE 96 mmol/L (98-107); Calcium 8.4 mg/dL (8.4-10.2); Carbon Dioxide 24 mmol/L (22-30); Creatinine 1 1.75 mg/dL (0.52-1.04); Glucose 175 mg/dL (74-106); Potassium 5.4 mmol/L (3.5-5.1); SGOT/AST 29 U/L (14-36); SGPT/ALT 25 U/L (0-35); SODIUM 129 mmol/L (137-145); Total Protein 6.9 g/dL (6.3-8.2)
[2019-01-29 13:49] LABS: VBG BASE EXCESS -3.8 (-2.0-2.0); VBG CARBOXYHEMOGLOBIN 3.8 % T HGB (0.0-6.9); VBG HCO3- 23.3 meq/L (22-28); VBG HEMOGLOBIN 8.7; VBG O2 SATURATION 35.6 (95-100); VBG POTASSIUM 5.1 (3.5-5.1); VBG pH 7.26 (7.32-7.42)
[2019-01-29 13:51] LABS: ACETAMINOPHEN < 10 ug/ml (10-30); ETHYL ALCOHOL < 10 mg/dL (0-10); SALICYLATE < 1.0 mg/dL (2-20)
--- NOTE | 2019-01-29 13:58 | XRAY ---
Indication: Wheezing. Overdose. Comparison: January 21, 2019. Portable chest demonstrates moderate worsening diffuse bilateral interstitial alveolar opacities again without consolidation/large effusion. Heart is not enlarged with stable left PICC line. Remaining chest unremarkable.
[2019-01-29 14:03] VITALS: O2SAT 97
[2019-01-29 14:47] LABS: Appearance CLEAR (CLEAR); Bacteria FEW /HPF (NEGATIVE); Bilirubin NEGATIVE (NEGATIVE); Blood SMALL Ery/ul (0-5); Glucose NEGATIVE (NEGATIVE); Ketones NEGATIVE (NEGATIVE); Leukocyte Esterase NEGATIVE (NEGATIVE); Mucus SLIGHT /HPF (NEGATIVE); Nitrite NEGATIVE (NEGATIVE); Protein,Urine Dip 30 (Negative); RBC 0-2 /HPF (0-2); Specific Gravity 1.006 (1.005-1.025); Urobilinogen NEGATIVE mg/dL (0-1); WBC 0-2 /HPF (0-5)
[2019-01-29 15:00] LABS: Amphetamine,Urine NEGATIVE (NEGATIVE); Barbiturate,Urine NEGATIVE (NEGATIVE); Benzodiazepine,Urine NEGATIVE (NEGATIVE); Cocaine,Urine NEGATIVE (NEGATIVE); Methadone,Urine NEGATIVE (NEGATIVE); Opiate,Urine NEGATIVE (NEGATIVE); PCP,Urine NEGATIVE (NEGATIVE); THC,Urine NEGATIVE (NEGATIVE)
[2019-01-29 15:58] VITALS: BP 104/47; PULSE 69
[2019-01-29] MEDS ORDERED: ROCEPHIN 1 Gm-D5w 50 ml Bag** 1 G/50 ML IVPB IV STA (16:01)
[2019-01-29] MEDS ORDERED: ROCEPHIN 1 Gm-D5w 50 ml Bag** 1 G/50 ML IVPB IV ONE (16:09)
[2019-01-29] MEDS ORDERED: solu-MEDROL 125 MG ONE (16:19)
[2019-01-29] MEDS ORDERED: solu-MEDROL 125 MG IV ONE (16:20)
== END 2019-01-29 17:16 | disposition short-term general hospital (02) ==
LOC: ED 13:06
DX: R40.4 Transient alteration of awareness (principal); T50.991A Poisoning by other drugs, medicaments and biological substances, accidental (unintentional), initial encounter; E87.5 Hyperkalemia; M00.9 Pyogenic arthritis, unspecified; T17.800A Unspecified foreign body in other parts of respiratory tract causing asphyxiation, initial encounter; I10 Essential (primary) hypertension; J44.9 Chronic obstructive pulmonary disease, unspecified; E11.9 Type 2 diabetes mellitus without complications; J45.909 Unspecified asthma, uncomplicated; Z79.899 Other long term (current) drug therapy
CPT/HCPCS: 36415; 71045; 80053; 80307; 81001; 82805; 83605; 84132; 85025; 87040; 87086; 93005; 93041; 94640; 96360; 96365; 96374; 99285; G0480; G0481; J0696; J2930; A9270-GY

== ENCOUNTER 2019-05-19 21:29 | Emergency (ER) | payer MEDICARE ==
--- NOTE | 2019-05-19 22:21 | ERPHSYRPT ---
- History of Present Illness Time Seen by Provider: 05/19/19 22:05 Historian: patient Exam Limitations: no limitations Patient Subjective Stated Complaint: pt states, "I've been vomiting off and on x1 week, stomach pain x1 week". Triage Nursing Assessment: pt alert and oriented x3, pleasant. Wheeled self in w/c to rm 5. Lungs clear, no distress noted. Heart tones reg, abd lg, soft with active bs x4 quad. Pt c/o hx of acsites due to fatty liver. Vomtiing off and on x1 week and diarrhea that started today. Pt c/o nausea. Physician History: One week of left sided abdominal pain with nausea and vomiting. Negative evaluation prior to coming into the emergency department. Timing/Duration: week(s) (1) Activities at Onset: none Quality: aching Abdominal Pain Onset Location: LLQ Pain Radiation: LUQ Severity of Pain-Max: moderate Severity of Pain-Current: mild Modifying Factors: Improves With: eating. Worsens With: breathing, defecating, lying down, movement, rest, vomiting, position Associated Symptoms: nausea, vomiting, No back, No chest pain, No diaphoresis, No diarrhea, No fever/chills, No fatigue, No headache, No heartburn, No neck pain, No rash, No shortness of breath, No weakness Previous symptoms: same symptoms as today, no recent treatment Allergies/Adverse Reactions: adhesive tape Allergy (Mild, Verified 01/29/19 13:29) Hives bee stings Allergy (Mild, Uncoded 01/18/19 00:31) Hives Home Medications: Duloxetine HCl 30 mg [Cymbalta 30 MG Capsule] 60 mg PO HS 11/17/12 [ History] Albuterol Sulfate [Proair Hfa] 2 puff IH Q4HPRN PRN 04/21/15 [History] Budesonide/Formoterol Fumarate [Symbicort 160-4.5 Mcg Inhaler] 2 puff IH BID [History] Omeprazole 20 MG [Prilosec 20 mg] 20 mg PO DAILY 04/21/15 [History] Pravastatin Sodium [Pravachol] 10 mg PO DAILY 02/07/16 [History] Gabapentin [Gralise] 600 mg PO TID 11/11/16 [History] Amlodipine Besylate 5 mg PO DAILY 01/18/19 [History] Bumetanide 2 mg PO DAILY 01/18/19 [History] Docusate Sodium 100 mg [Colace 100 MG] 100 mg PO HS 01/18/19 [History] Ergocalciferol (Vitamin D2) [Vitamin D] 50,000 units PO UD 01/18/19 [History] Ferrous Sulfate 325 mg PO DAILY 01/18/19 [History] Hydroxyzine HCl 10 mg PO BID 01/18/19 [History] Levothyroxine Sodium 25 Mcg [Synthroid 25 Mcg] 25 mcg PO DAILY 01/18/19 [ History] Tapentadol HCl [Nucynta] 100 mg PO Q6H 01/29/19 [History] Apixaban [Eliquis] 5 mg PO BID 05/19/19 [History] Hx Tetanus, Diphtheria Vaccination/Date Given: Yes Hx Influenza Vaccination/Date Given: No Hx Pneumococcal Vaccination/Date Given: Yes Immunizations Up to Date: Yes - Review of Systems Constitutional: Fatigue, No Fever, No Chills Eyes: No Symptoms, No Eye Pain, No Vision Changes Ears, Nose, & Throat: No Nose Pain, No Nose Discharge, No Mouth Swelling, No Throat Pain Respiratory: No Cough, No Cyanosis, No Dyspnea Cardiac: No Chest Pain, No Edema, No Syncope Abdominal/Gastrointestinal: Abdominal Pain, Nausea, Vomiting, No Diarrhea, No Hematemesis, No Hematochezia, No Melena Genitourinary Symptoms: No Dysuria, No Frequency, No Hematuria, No Flank Pain Musculoskeletal: No Back Pain, No Neck Pain Skin: No Rash Neurological: No Dizziness, No Focal Weakness, No Parasthesia, No Sensory Changes Psychological: No Symptoms Endocrine: No Symptoms Hematologic/Lymphatic: No Easy Bleeding, No Easy Bruising All Other Systems: Reviewed and Negative - Past Medical History Pertinent Past Medical History: Yes Neurological History: No Pertinent History ENT History: No Pertinent History Cardiac History: Hypertension Respiratory History: Asthma, COPD, Pneumonia Endocrine Medical History: Diabetes Type II Musculoskeletal History: Fractures GI Medical History: GERD, Other History: No Pertinent History Psycho-Social History: Anxiety, Depression Female Reproductive Disorders: No Pertinent History Other Medical History: left ankle fx with mult surgeries, in February 2019 bka. ascites - Past Surgical History Past Surgical History: Yes Neuro Surgical History: No Pertinent History Cardiac: No Pertinent History Respiratory: No Pertinent History Gastrointestinal: Cholecystectomy, Exploratory Laparoscopy Genitourinary: No Pertinent History Musculoskeletal: No Pertinent History Female Surgical History: Section, Hysterectomy Other Surgical History: foot surgery, screw placed in left big toe, removal, and antibiotic bead placement. mult lt foot surgeries. LT BKA February 2019 - Social History Smoking Status: Current every day smoker How long have you smoked: 35 years Exposure to second hand smoke: Yes Drug Use: none Patient Lives Alone: No - Female History Hx Last Menstrual Period: hysterectomy Hx Now: No - Nursing Vital Signs Nursing Vital Signs: Initial Vital Signs Temperature 98.7 F 05/19/19 21:36 Pulse Rate 99 H 05/19/19 21:36 Respiratory Rate 20 05/19/19 21:36 Blood Pressure 160/87 05/19/19 21:36 O2 Sat by Pulse Oximetry 99 05/19/19 21:36 Pain Scale Pain Intensity 6 - Physical Exam General Appearance: no apparent distress, alert Eye Exam: PERRL/EOMI, eyes nml inspection, No scleral icterus Ears, Nose, Throat Exam: normal ENT inspection, pharynx normal, dry mucous membranes Neck Exam: normal inspection, non-tender, supple, full range of motion, No meningismus, No mass, No Brudzinski, No Kernig's Respiratory Exam: normal breath sounds, lungs clear, airway intact, No respiratory distress, No diminished breath sounds, No accessory muscle use, No crackles/rales, No rhonchi, No wheezing, No stridor Cardiovascular Exam: regular rate/rhythm, normal heart sounds Gastrointestinal/Abdomen Exam: soft, normal bowel sounds, distention, other ( positive fluid shift), No tenderness, No mass, No pulsatile mass, No rebound Back Exam: normal inspection, normal range of motion, No CVA tenderness, No vertebral tenderness Extremity Exam: normal inspection, normal range of motion, pelvis stable Neurologic Exam: alert, 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, cooperative, normal mood/affect, nml cerebellar function, sensation nml, No motor deficits Skin Exam: normal color, warm, dry Lymphatic Exam: No adenopathy SpO2 Interpretation: normal SpO2: 99 O2 Delivery: Room Air - Course EKG Interpreted by Me: RATE ([id number]), Sinus Rhythm, NORMAL AXIS, NORMAL INTERVALS, NORMAL QRS, NORMAL ST-T, Other (possible anterior myocardial infarction; no appreciable change in comparison to EKG from 01/29/2019) - CT Exams Abdomen/Pelvis CT Interpretation: Tele-radiologist Report, Other (radiologist report: Negative for focal acute inflammatory process. Central lobular emphysematous changes. Groundglass in interstitial markings in the lower lung villalpando may reflect an infectious or inflammatory process. Cirrhotic liver. Spleen enlarged to 17 cm. Moderate amount of ascites in the abdomen. Cholecystectomy.) Ordered Tests: Active Orders 24 hr Category Date Time Status Retail Visual Merchandiser STAT Care 05/19/19 22:10 Active EKG-ER Only STAT Care 05/19/19 22:15 Active IV Insertion STAT Care 05/19/19 22:10 Active Pulse Oximetry (ED) STAT Care 05/19/19 22:10 Active ABDOMEN AND PELVIS W/0 CONTRAS [CT] Stat Exams 05/19/19 22:16 Taken CHEST 1 VIEW (PORTABLE) Stat Exams 05/19/19 22:10 Taken BLOOD CULTURE Stat Lab 05/19/19 22:53 Received CBC W DIFF Stat Lab 05/19/19 22:53 Completed CMP Stat Lab 05/19/19 22:53 Completed CULTURE,URINE Stat Lab 05/19/19 22:59 Received LIPASE Stat Lab 05/19/19 22:53 Completed Lactic Acid Stat Lab 05/19/19 22:20 Completed MAGNESIUM Stat Lab 05/19/19 22:53 Completed PROTIME WITH INR Stat Lab 05/19/19 22:53 Completed PTT Stat Lab 05/19/19 22:53 Completed Urinalysis with Microscopy Stat Lab 05/19/19 22:53 Completed Medication Summary Generic Name Dose Route Start Last Admin Trade Name Freq PRN Reason Stop Dose Admin Sodium Chloride 1,000 mls @ 999 mls/hr 05/19/19 22:15 05/19/19 23:39 Sodium Chloride 0.9% 1000 Ml IV 05/20/19 01:15 999 mls/hr .Q1H1M TISHA Administration Discontinued Medications Generic Name Dose Route Start Last Admin Trade Name Freq PRN Reason Stop Dose Admin Magnesium Sulfate/Dextrose 100 mls @ 200 mls/hr 05/19/19 23:53 05/19/19 23:56 Magnesium 1 Gm / 100 Ml D5w IV 05/20/19 00:22 200 mls/hr STAT ONE Administration Magnesium Sulfate/Dextrose Confirm 05/19/19 23:54 Magnesium 1 Gm / 100 Ml D5w Administered 05/19/19 23:55 Dose 100 mls @ ud IV .[facility] ONE Magnesium Sulfate 1 gm 05/19/19 23:45 05/19/19 23:56 Magnesium Sulfate 1 Gm/2 Ml Vial IV 05/19/19 23:46 Not Given ONCE ONE Magnesium Sulfate Confirm 05/19/19 23:52 Magnesium Sulfate 1 Gm/2 Ml Vial Administered 05/19/19 23:53 Dose 1 gm .ROUTE .[facility] ONE Lab/Rad Data: Laboratory Result Diagrams 05/19/19 22:53 05/19/19 22:53 Laboratory Results 05/19/19 05/19/19 05/19/19 Range/Units 22:53 22:53 22:53 WBC (4.0-10.5) K/mm3 RBC (4.1-5.4) M/mm3 Hgb (12.0-16.0) gm/dl Hct (35-47) % MCV (78-100) fl MCH (26-32) pg MCHC (32-36) g/dl RDW (11.5-14.0) % Plt Count (150-450) K/mm3 MPV (6-9.5) fl Gran % (36.0-66.0) % Eos # (Auto) (0-0.5) Absolute Lymphs (auto) (1.0-4.6) Absolute Monos (auto) (0.0-1.3) Lymphocytes % (24.0-44.0) % Monocytes % (0.0-12.0) % Eosinophils % (0.00-5.0) % Basophils % (0.0-0.4) % Absolute Granulocytes (1.4-6.9) Basophils # (0-0.4) PT 15.3 H (9.95-12.35) SECONDS INR 1.35 (0.8-3.0) APTT 27.6 (25.3-37.0) SECONDS Sodium 135 L (137-145) mmol/L Potassium 4.4 (3.5-5.1) mmol/L Chloride 101 (98-107) mmol/L Carbon Dioxide 21 L (22-30) mmol/L Anion Gap 16.4 H (5-15) MEQ/L BUN 14 (7-17) mg/dL Creatinine 1.52 H (0.52-1.04) mg/dL Estimated GFR 38.2 ML/MIN Glucose 230 H (74-106) mg/dL Lactic Acid (0.4-2.0) Calcium 8.3 L (8.4-10.2) mg/dL Magnesium 1.4 L (1.6-2.3) mg/dL Total Bilirubin 0.50 (0.2-1.3) mg/dL AST 21 (14-36) U/L ALT 11 (0-35) U/L Alkaline Phosphatase 179 H (38-126) U/L Serum Total Protein 7.2 (6.3-8.2) g/dL Albumin 3.1 L (3.5-5.0) g/dL Lipase 48 (23-300) U/L Urine Color YELLOW (YELLOW) Urine Appearance CLOUDY (CLEAR) Urine pH 6.0 (5-6) Ur Specific Labad[place] 1.006 (1.005-1.025) Urine Protein 100 (Negative) Urine Ketones NEGATIVE (NEGATIVE) Urine Blood SMALL (0-5) Ubaldo/ul Urine Nitrite NEGATIVE (NEGATIVE) Urine Bilirubin NEGATIVE (NEGATIVE) Urine Urobilinogen NEGATIVE (0-1) mg/dL Ur Leukocyte Esterase LARGE (NEGATIVE) Urine WBC (Auto) >100 (0-5) /HPF Urine RBC (Auto) 11-15 (0-2) /HPF U Epithel Cells (Auto) NONE (FEW) /HPF Urine Bacteria (Auto) NONE (NEGATIVE) /HPF Urine Glucose NEGATIVE (NEGATIVE) mg/dL 05/19/19 05/19/19 Range/Units 22:53 22:20 WBC 5.9 (4.0-10.5) K/mm3 RBC 3.37 L (4.1-5.4) M/mm3 Hgb 8.9 L (12.0-16.0) gm/dl Hct 26.7 L (35-47) % MCV 79.2 (78-100) fl MCH 26.4 (26-32) pg MCHC 33.3 (32-36) g/dl RDW 15.9 H (11.5-14.0) % Plt Count 171 (150-450) K/mm3 MPV 10.0 H (6-9.5) fl Gran % 57.8 (36.0-66.0) % Eos # (Auto) 0.14 (0-0.5) Absolute Lymphs (auto) 1.65 (1.0-4.6) Absolute Monos (auto) 0.66 (0.0-1.3) Lymphocytes % 28.2 (24.0-44.0) % Monocytes % 11.3 (0.0-12.0) % Eosinophils % 2.4 (0.00-5.0) % Basophils % 0.3 (0.0-0.4) % Absolute Granulocytes 3.38 (1.4-6.9) Basophils # 0.02 (0-0.4) PT (9.95-12.35) SECONDS INR (0.8-3.0) APTT (25.3-37.0) SECONDS Sodium (137-145) mmol/L Potassium (3.5-5.1) mmol/L Chloride (98-107) mmol/L Carbon Dioxide (22-30) mmol/L Anion Gap (5-15) MEQ/L BUN (7-17) mg/dL Creatinine (0.52-1.04) mg/dL Estimated GFR ML/MIN Glucose (74-106) mg/dL Lactic Acid 1.5 (0.4-2.0) Calcium (8.4-10.2) mg/dL Magnesium (1.6-2.3) mg/dL Total Bilirubin (0.2-1.3) mg/dL AST (14-36) U/L ALT (0-35) U/L Alkaline Phosphatase (38-126) U/L Serum Total Protein (6.3-8.2) g/dL Albumin (3.5-5.0) g/dL Lipase (23-300) U/L Urine Color (YELLOW) Urine Appearance (CLEAR) Urine pH (5-6) Ur Specific Labadie (1.005-1.025) Urine Protein (Negative) Urine Ketones (NEGATIVE) Urine Blood (0-5) Ubaldo/ul Urine Nitrite (NEGATIVE) Urine Bilirubin (NEGATIVE) Urine Urobilinogen (0-1) mg/dL Ur Leukocyte Esterase (NEGATIVE) Urine WBC (Auto) (0-5) /HPF Urine RBC (Auto) (0-2) /HPF U Epithel Cells (Auto) (FEW) /HPF Urine Bacteria (Auto) (NEGATIVE) /HPF Urine Glucose (NEGATIVE) mg/dL - Progress Progress: improved Progress Note: 05/20/19 00:16 Patient's nausea has resolved. Patient has had multiple episodes of paracentesis in the past, including one time at [facility]. Patient denies any localized abdominal pain. Counseled pt/family regarding: lab results, diagnosis, need for follow-up, rad results - Departure Departure Disposition: Home, In-patient Admission, Extended Care Facility Clinical Impression: Anemia of chronic disease, Ascites of liver, Hypomagnesemia, Chronic kidney disease, stage 3 (moderate), Abdominal bloating, Splenomegaly Cirrhosis Qualifiers: Hepatic cirrhosis type: unspecified hepatic cirrhosis Ascites presence: with ascites Qualified Code(s): K74.60 - Unspecified cirrhosis of liver Nausea and vomiting Qualifiers: Vomiting type: unspecified Vomiting Intractability: non-intractable Qualified Code(s): R11.2 - Nausea with vomiting, unspecified Condition: Good Critical Care Time: No Referrals: TERRY TRONCOSO [Primary Care Provider] - Instructions: Nausea -- Adult, Vomiting -- Adult, Fluid in the Belly (Ascites) (DC), Abdominal Paracentesis (DC), Chronic Kidney Disease (DC), Low Magnesium Level (DC) Additional Instructions: Make an appointment with your physician in the morning of 05/20/2019 to get set up for an outpatient paracentesis. Return immediately back to emergency department if any worsening abdominal pain, worse vomiting, or any other concerning signs or symptoms that were not present at today's visit for immediate reevaluation in the emergency department. Prescriptions: Ondansetron ODT 4 MG [Zofran Odt 4 mg] 4 mg PO DAILY PRN PRN #3 tab.rapdis PRN Reason: Nausea
[2019-05-19] MEDS ORDERED: Sodium Chloride 0.9% 1000 ML 1,000 ML ONE ×2 (22:24→23:38)
[2019-05-19] MEDS: Sodium Chloride 0.9% 1000 ML 1,000 ML IV SCH ×2 (22:26→23:39)
[2019-05-19 22:55] LABS: BASOPHIL % 0.3 % (0.0-0.4); Basophil (Absolute #) 0.02 (0-0.4); Eosinophil % 2.4 % (0.00-5.0); Eosinophil (Absolute #) 0.14 (0-0.5); Granulocyte Absolute (ANC) 3.38 (1.4-6.9); Granulocytes % 57.8 % (36.0-66.0); Hematocrit 26.7 % (35-47); Hemoglobin 8.9 gm/dl (12.0-16.0); Lymphocyte (Absolute #) 1.65 (1.0-4.6); Lymphocytes % 28.2 % (24.0-44.0); Mean Cell Volume 79.2 fl (78-100); Mean Corpuscular Hemoglobin 26.4 pg (26-32); Mean Corpuscular Hgb Concent. 33.3 g/dl (32-36); Monocyte (Absolute #) 0.66 (0.0-1.3); Monocytes % 11.3 % (0.0-12.0); Platelet Count 171 K/mm3 (150-450); Red Blood Count 3.37 M/mm3 (4.1-5.4); Red Cell Distribution Width 15.9 % (11.5-14.0); White Blood Count 5.9 K/mm3 (4.0-10.5)
[2019-05-19 23:01] LABS: INR 1.35 (0.8-3.0); PROTIME 15.3 SECONDS (9.95-12.35)
[2019-05-19 23:03] LABS: PTT 27.6 SECONDS (25.3-37.0)
[2019-05-19 23:07] LABS: ALBUMIN 3.1 g/dL (3.5-5.0); ANION GAP 16.4 MEQ/L (5-15); BILIRUBIN,TOTAL 0.5 mg/dL (0.2-1.3); Calcium 8.3 mg/dL (8.4-10.2); Creatinine 1 1.52 mg/dL (0.52-1.04); MAGNESIUM 1.4 mg/dL (1.6-2.3); Potassium 4.4 mmol/L (3.5-5.1); Total Protein 7.2 g/dL (6.3-8.2)
[2019-05-19 23:08] LABS: Appearance CLOUDY (CLEAR); Bilirubin NEGATIVE (NEGATIVE); Blood SMALL Ery/ul (0-5); Glucose NEGATIVE (NEGATIVE); Ketones NEGATIVE (NEGATIVE); Leukocyte Esterase LARGE (NEGATIVE); Nitrite NEGATIVE (NEGATIVE); Protein,Urine Dip 100 (Negative); Specific Gravity 1.006 (1.005-1.025); Urobilinogen NEGATIVE mg/dL (0-1); WBC >100 /HPF (0-5)
[2019-05-19] MEDS ORDERED: Magnesium Sulfate 1 GM/2 ML VIAL IV ONE (23:45)
[2019-05-19] MEDS ORDERED: Magnesium Sulfate 1 GM/2 ML VIAL ONE (23:52)
[2019-05-19] MEDS ORDERED: Magnesium 1 Gm / 100 Ml D5W*** 100 ML IV ONE ×2 (23:53→23:54)
[2019-05-20 00:16] VITALS: O2SAT 99
[2019-05-20 00:51] VITALS: BP 140/74; PULSE 93
--- NOTE | 2019-05-20 09:13 | XRAY ---
Indication: Abdomen pain, emesis, and diarrhea. History ascites. Comparison: November 29, 2018. Portable chest demonstrates marked improvement of the previous bilateral interstitial alveolar opacities with bibasilar recurrent/residual opacities, right greater than left. Remaining heart, lungs, and bony thorax unremarkable.
--- NOTE | 2019-05-20 09:17 | XRAY ---
Indication: Ascites, nausea, vomiting, and diarrhea. Multiple contiguous axial images obtained through the abdomen and pelvis without contrast as ordered. Comparison: April 19, 2017. Lung bases again demonstrates scattered interstitial alveolar opacities and bronchiectasis bilaterally. No consolidation or effusion. Heart is not enlarged. Noncontrasted stomach and bowel loops appear nonobstructed. Again cirrhotic appearing liver with moderate abdomen/pelvic ascites. No free air. Spleen remains enlarged today measuring 18 cm in CC dimension. Again previous cholecystectomy and hysterectomy. Urinary bladder normally distended again with mild circumferential wall thickening either incomplete distention versus cystitis. Remaining pancreas, adrenal glands, kidneys, and ureters appear unremarkable for noncontrast exam. Stable mild aortoiliac calcifications without AAA. Osseous structures intact again with mild degenerative changes throughout the spine Impression: 1. Again cirrhotic liver with ascites and splenomegaly. 2. Stable urinary bladder wall thickening again either incomplete distention versus cystitis. 3. Stable bibasilar pulmonary interstitial alveolar opacities and bronchiectasis. Comment: Preliminary interpretation was made by [facility]. No critical discrepancy. CT DI 20.39
== END 2019-05-20 00:56 | disposition home or self-care (01) ==
LOC: ED 21:29
DX: N18.3 Chronic kidney disease, stage 3 (moderate) (principal); D63.1 Anemia in chronic kidney disease; R18.8 Other ascites; E83.42 Hypomagnesemia; R14.0 Abdominal distension (gaseous); R16.1 Splenomegaly, not elsewhere classified; K74.60 Unspecified cirrhosis of liver; R11.2 Nausea with vomiting, unspecified; Z79.899 Other long term (current) drug therapy
CPT/HCPCS: 36000; 36415; 71045; 74176; 80053; 81001; 83605; 83690; 83735; 85025; 85610; 85730; 87040; 87077; 87086; 87186; 93005; 93041; 94760; 96360; 96361; 96365; 99285; J3475

== ENCOUNTER 2019-07-11 15:22 | Emergency (ER) | payer MEDICARE ==
[2019-07-11] MEDS ORDERED: Sodium Chloride 0.9% 1000 ML 1,000 ML IV STA (16:41)
[2019-07-11] MEDS ORDERED: MORPHINE SULFATE 2 MG INJ IV ONE (16:41)
[2019-07-11] MEDS ORDERED: Zofran 4 MG/2 ML VIAL IV ONE (16:41)
--- NOTE | 2019-07-11 16:41 | ERPHSYRPT ---
- History of Present Illness Time Seen by Provider: 07/11/19 16:20 Source: patient Exam Limitations: no limitations Patient Subjective Stated Complaint: Pt c/o of coughing, vomiting, off and on for the past 2 weeks Triage Nursing Assessment: Pt brought in via wheelchair, left BKA, vitals wnl, lungs coarse, rhonchi, and wheezing throughout, pulses normal, rates chest/ abdomen pain 04/13 Physician History: K/C/O COPD, continues to smoke. C/O N/V/D and ABd pain, cough for 2 weeks Timing/Duration: week(s) (2) Severity: moderate Associated Symptoms: nausea, vomiting, abdominal pain, shortness of breath, cough, chills, loss of appetite, malaise Allergies/Adverse Reactions: adhesive tape Allergy (Mild, Verified 07/11/19 16:34) Hives bee stings Allergy (Mild, Uncoded 07/11/19 16:34) Hives Home Medications: Duloxetine HCl 30 mg [Cymbalta 30 MG Capsule] 60 mg PO HS 11/17/12 [ History] Albuterol Sulfate [Proair Hfa] 2 puff IH Q4HPRN PRN 04/21/15 [History] Budesonide/Formoterol Fumarate [Symbicort 160-4.5 Mcg Inhaler] 2 puff IH BID [History] Omeprazole 20 MG [Prilosec 20 mg] 20 mg PO DAILY 04/21/15 [History] Pravastatin Sodium [Pravachol] 10 mg PO DAILY 02/07/16 [History] Gabapentin [Gralise] 600 mg PO TID 11/11/16 [History] Amlodipine Besylate 5 mg PO DAILY 01/18/19 [History] Bumetanide 2 mg PO DAILY 01/18/19 [History] Docusate Sodium 100 mg [Colace 100 MG] 100 mg PO HS 01/18/19 [History] Ergocalciferol (Vitamin D2) [Vitamin D] 50,000 units PO UD 01/18/19 [History] Ferrous Sulfate 325 mg PO DAILY 01/18/19 [History] Hydroxyzine HCl 10 mg PO BID 01/18/19 [History] Levothyroxine Sodium 25 Mcg [Synthroid 25 Mcg] 25 mcg PO DAILY 01/18/19 [ History] Tapentadol HCl [Nucynta] 200 mg PO Q6H 01/29/19 [History] Hydrocodone/Acetaminophen [[place] 7.5-325 Tablet] 1 each PO UD PRN 07/11/19 [ History] Insulin Lispro [Humalog] 100 unit SQ UD 07/11/19 [History] Hx Tetanus, Diphtheria Vaccination/Date Given: Yes Hx Influenza Vaccination/Date Given: No Hx Pneumococcal Vaccination/Date Given: Yes - Review of Systems Constitutional: No Fever, No Chills Eyes: No Symptoms Ears, Nose, & Throat: No Symptoms Respiratory: Cough, No Dyspnea Cardiac: No Chest Pain, No Edema, No Syncope Abdominal/Gastrointestinal: Nausea, Vomiting, Diarrhea Genitourinary Symptoms: No Dysuria Musculoskeletal: No Back Pain, No Neck Pain Skin: No Rash Neurological: No Dizziness, No Focal Weakness, No Sensory Changes Psychological: No Symptoms Endocrine: No Symptoms All Other Systems: Reviewed and Negative - Past Medical History Pertinent Past Medical History: Yes Neurological History: No Pertinent History ENT History: No Pertinent History Cardiac History: Hypertension Respiratory History: Asthma, COPD, Pneumonia Endocrine Medical History: Diabetes Type II Musculoskeletal History: Fractures GI Medical History: GERD, Other History: No Pertinent History Psycho-Social History: Anxiety, Depression Female Reproductive Disorders: No Pertinent History Other Medical History: left ankle fx with mult surgeries, in February 2019 bka. ascites - Past Surgical History Past Surgical History: Yes Neuro Surgical History: No Pertinent History Cardiac: No Pertinent History Respiratory: No Pertinent History Gastrointestinal: Cholecystectomy, Exploratory Laparoscopy Genitourinary: No Pertinent History Musculoskeletal: No Pertinent History, Amputation Female Surgical History: Section, Hysterectomy Other Surgical History: foot surgery, screw placed in left big toe, removal, and antibiotic bead placement. mult lt foot surgeries. LT BKA February 2019 - Social History Smoking Status: Current every day smoker How long have you smoked: 35 years Exposure to second hand smoke: Yes Drug Use: none Patient Lives Alone: No - Female History Hx Now: No - Nursing Vital Signs Nursing Vital Signs: Initial Vital Signs Temperature 97.9 F 07/11/19 16:22 Pulse Rate 100 H 07/11/19 16:22 Blood Pressure 135/83 07/11/19 16:22 O2 Sat by Pulse Oximetry 98 07/11/19 16:22 Pain Scale Pain Intensity 0 - Physical Exam General Appearance: no apparent distress, alert Eye Exam: PERRL/EOMI, eyes nml inspection Ears, Nose, Throat Exam: normal ENT inspection, TMs normal, pharynx normal, moist mucous membranes Neck Exam: normal inspection, non-tender, supple, full range of motion Respiratory Exam: normal breath sounds, lungs clear, No respiratory distress Cardiovascular Exam: regular rate/rhythm, normal heart sounds, normal peripheral pulses Gastrointestinal/Abdomen Exam: soft, normal bowel sounds, No tenderness, No mass Back Exam: normal inspection, normal range of motion, No CVA tenderness, No vertebral tenderness Extremity Exam: normal inspection, normal range of motion, pelvis stable, other (left below knee amputation) Neurologic Exam: alert, 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, cooperative, normal mood/affect, nml cerebellar function, nml station & gait, sensation nml, No motor deficits Skin Exam: normal color, warm, dry, No rash Lymphatic Exam: No adenopathy SpO2: 100 - Course EKG Interpreted by Me: RATE, Sinus Rhythm, NORMAL AXIS, NORMAL INTERVALS, NORMAL QRS, Q-wave, Non-specific ST Changes - CT Exams Abdomen/Pelvis CT Interpretation: Discussed w/radiologist, Other (sstable by basilar interstitial or alveolar opacities, cirrhosis, splenomegaly, ascites, distended urinary bladder.) Ordered Tests: Active Orders 24 hr Category Date Time Status EKG-ER Only STAT Care 07/11/19 16:41 Active IV Insertion STAT Care 07/11/19 16:41 Active NPO (ED) STAT Care 07/11/19 16:41 Active ABDOMEN AND PELVIS W/0 CONTRAS [CT] Stat Exams 07/11/19 18:38 Taken CHEST 1 VIEW (PORTABLE) Stat Exams 07/11/19 16:42 Taken BLOOD CULTURE Stat Lab 07/11/19 18:00 Received CBC W DIFF Stat Lab 07/11/19 17:00 Completed CMP Stat Lab 07/11/19 17:00 Completed CULTURE,URINE Stat Lab 07/11/19 19:52 Received LIPASE Stat Lab 07/11/19 17:00 Completed Lactic Acid Stat Lab 07/11/19 17:20 Completed TROPONIN Stat Lab 07/11/19 17:00 Completed UA W/RFX UR CULTURE Stat Lab 07/11/19 19:52 Completed Peak Expiratory Flow Rate ONCE RT 07/11/19 17:42 Active Respiratory Therapy Assessment DAILY RT 07/11/19 17:41 Active Medication Summary Discontinued Medications Generic Name Dose Route Start Last Admin Trade Name Allan PRN Reason Stop Dose Admin Albuterol/Ipratropium 3 ml 07/11/19 16:46 07/11/19 17:36 Duoneb 0.5-3 Mg/3 Ml Neb IH 07/11/19 16:47 3 ml STAT ONE Administration Albuterol/Ipratropium Confirm 07/11/19 16:53 Duoneb 0.5-3 Mg/3 Ml Neb Administered 07/11/19 16:54 Dose 3 ml IH .STK-MED ONE Azithromycin 500 mg 07/11/19 16:46 07/11/19 17:25 Zithromax 250 Mg Tablet PO 07/11/19 16:47 500 mg STAT ONE Administration Azithromycin Confirm 07/11/19 17:16 Zithromax 250 Mg Tablet Administered 07/11/19 17:17 Dose 500 mg .ROUTE .STK-MED ONE Sodium Chloride 1,000 mls @ 999 mls/hr 07/11/19 16:41 07/11/19 18:17 Sodium Chloride 0.9% 1000 Ml IV 07/11/19 17:41 Infused .Q1H1M STA Infusion Ceftriaxone Sodium/Dextrose 1 g in 50 mls @ 100 mls/hr 07/11/19 16:46 18:16 Rocephin 1 Gm-D5w 50 Ml Bag IV 07/11/19 17:15 Infused STAT STA Infusion Sodium Chloride Confirm 07/11/19 17:17 Sodium Chloride 0.9% 1000 Ml Administered 07/11/19 17:18 Dose 1,000 mls @ ud .ROUTE .STK-MED ONE Ceftriaxone Sodium/Dextrose Confirm 07/11/19 17:17 Rocephin 1 Gm-D5w 50 Ml Bag Administered 07/11/19 17:18 Dose 1 g in 50 mls @ ud IV .STK-MED ONE Morphine Sulfate 2 mg 07/11/19 16:41 07/11/19 17:25 Morphine Sulfate 2 Mg Inj IV 07/11/19 16:42 2 mg STAT ONE Administration Morphine Sulfate Confirm 07/11/19 17:17 Morphine Sulfate 2 Mg Inj Administered 07/11/19 17:18 Dose 2 mg .ROUTE .STK-MED ONE Ondansetron HCl 4 mg 07/11/19 16:41 07/11/19 17:25 Zofran 4 Mg/2 Ml Vial IV 07/11/19 16:42 4 mg STAT ONE Administration Ondansetron HCl Confirm 07/11/19 17:16 Zofran 4 Mg/2 Ml Vial Administered 07/11/19 17:17 Dose 4 mg .ROUTE .STK-MED ONE Lab/Rad Data: Laboratory Result Diagrams 07/11/19 17:00 07/11/19 17:00 Laboratory Results 07/11/19 07/11/19 07/11/19 Range/Units 19:52 17:20 17:00 WBC (4.0-10.5) K/mm3 RBC (4.1-5.4) M/mm3 Hgb (12.0-16.0) gm/dl Hct (35-47) % MCV (78-100) fl MCH (26-32) pg MCHC (32-36) g/dl RDW (11.5-14.0) % Plt Count (150-450) K/mm3 MPV (6-9.5) fl Gran % (36.0-66.0) % Eos # (Auto) (0-0.5) Absolute Lymphs (auto) (1.0-4.6) Absolute Monos (auto) (0.0-1.3) Lymphocytes % (24.0-44.0) % Monocytes % (0.0-12.0) % Eosinophils % (0.00-5.0) % Basophils % (0.0-0.4) % Absolute Granulocytes (1.4-6.9) Basophils # (0-0.4) Sodium 129 L (137-145) mmol/L Potassium 4.2 (3.5-5.1) mmol/L Chloride 91 L (98-107) mmol/L Carbon Dioxide 28 (22-30) mmol/L Anion Gap 14.2 (5-15) MEQ/L BUN 11 (7-17) mg/dL Creatinine 1.13 H (0.52-1.04) mg/dL Estimated GFR 53.7 ML/MIN Glucose 146 H (74-106) mg/dL Lactic Acid 1.1 (0.4-2.0) Calcium 8.5 (8.4-10.2) mg/dL Total Bilirubin 0.50 (0.2-1.3) mg/dL AST 25 (14-36) U/L ALT 9 (0-35) U/L Alkaline Phosphatase 180 H (38-126) U/L Troponin I < 0.012 (0.000-0.034) ng/mL Serum Total Protein 7.4 (6.3-8.2) g/dL Albumin 3.1 L (3.5-5.0) g/dL Lipase 31 (23-300) U/L Urine Color YELLOW (YELLOW) Urine Appearance CLOUDY (CLEAR) Urine pH 6.0 (5-6) Ur Specific [place] 1.004 (1.005-1.025) Urine Protein 100 (Negative) Urine Ketones NEGATIVE (NEGATIVE) Urine Blood SMALL (0-5) Ubaldo/ul Urine Nitrite NEGATIVE (NEGATIVE) Urine Bilirubin NEGATIVE (NEGATIVE) Urine Urobilinogen NEGATIVE (0-1) mg/dL Ur Leukocyte Esterase LARGE (NEGATIVE) Urine WBC (Auto) >100 (0-5) /HPF Urine RBC (Auto) 16-25 (0-2) /HPF U Epithel Cells (Auto) RARE (FEW) /HPF Urine Bacteria (Auto) MODERATE (NEGATIVE) /HPF Urine Mucus (Auto) SLIGHT (NEGATIVE) /HPF Urine Yeast (Budding) Rare (NEGATIVE) /HPF Urine Culture Reflexed YES (NO) Urine Glucose NEGATIVE (NEGATIVE) mg/dL 07/11/19 Range/Units 17:00 WBC 12.0 H (4.0-10.5) K/mm3 RBC 4.06 L (4.1-5.4) M/mm3 Hgb 10.6 L (12.0-16.0) gm/dl Hct 31.9 L (35-47) % MCV 78.6 (78-100) fl MCH 26.1 (26-32) pg MCHC 33.2 (32-36) g/dl RDW 15.7 H (11.5-14.0) % Plt Count 257 (150-450) K/mm3 MPV 9.1 (6-9.5) fl Gran % 77.8 H (36.0-66.0) % Eos # (Auto) 0.19 (0-0.5) Absolute Lymphs (auto) 1.83 (1.0-4.6) Absolute Monos (auto) 0.60 (0.0-1.3) Lymphocytes % 15.3 L (24.0-44.0) % Monocytes % 5.0 (0.0-12.0) % Eosinophils % 1.6 (0.00-5.0) % Basophils % 0.3 (0.0-0.4) % Absolute Granulocytes 9.34 H (1.4-6.9) Basophils # 0.04 (0-0.4) Sodium (137-145) mmol/L Potassium (3.5-5.1) mmol/L Chloride (98-107) mmol/L Carbon Dioxide (22-30) mmol/L Anion Gap (5-15) MEQ/L BUN (7-17) mg/dL Creatinine (0.52-1.04) mg/dL Estimated GFR ML/MIN Glucose (74-106) mg/dL Lactic Acid (0.4-2.0) Calcium (8.4-10.2) mg/dL Total Bilirubin (0.2-1.3) mg/dL AST (14-36) U/L ALT (0-35) U/L Alkaline Phosphatase (38-126) U/L Troponin I (0.000-0.034) ng/mL Serum Total Protein (6.3-8.2) g/dL Albumin (3.5-5.0) g/dL Lipase (23-300) U/L Urine Color (YELLOW) Urine Appearance (CLEAR) Urine pH (5-6) Ur Specific [place] (1.005-1.025) Urine Protein (Negative) Urine Ketones (NEGATIVE) Urine Blood (0-5) Ubaldo/ul Urine Nitrite (NEGATIVE) Urine Bilirubin (NEGATIVE) Urine Urobilinogen (0-1) mg/dL Ur Leukocyte Esterase (NEGATIVE) Urine WBC (Auto) (0-5) /HPF Urine RBC (Auto) (0-2) /HPF U Epithel Cells (Auto) (FEW) /HPF Urine Bacteria (Auto) (NEGATIVE) /HPF Urine Mucus (Auto) (NEGATIVE) /HPF Urine Yeast (Budding) (NEGATIVE) /HPF Urine Culture Reflexed (NO) Urine Glucose (NEGATIVE) mg/dL - Progress Progress: improved Progress Note: 07/11/19 19:49 patient feels better. Discussed the the lab and CT results with the patient she understood that she has a low sodium and also cirrhosis of the liver with splenomegaly. I advised her to see ticket chopper assembler for the same. Patient understood and agreed. No acute life or limb threatening condition on discharge. The patient was seen in May for the same thing. The CT scan has not changed since then. No active vomiting or bleeding. Will discharge patient home with Zofran ODT for vomiting and Z-Chano for bronchitis. 07/11/19 19:55 ddelay in dispo due to CT scan and lab results. 07/11/19 20:12 on UA patient has a UTI so we'll treat with Levaquin. Counseled pt/family regarding: lab results, diagnosis, need for follow-up, rad results, smoking cessation - Departure Departure Disposition: Home Clinical Impression: Hyponatremia Nausea and vomiting Qualifiers: Vomiting type: unspecified Vomiting Intractability: non-intractable Qualified Code(s): R11.2 - Nausea with vomiting, unspecified Acute bronchitis Qualifiers: Bronchitis organism: unspecified organism Qualified Code(s): J20.9 - Acute bronchitis, unspecified Cirrhosis Qualifiers: Hepatic cirrhosis type: unspecified hepatic cirrhosis Ascites presence: with ascites Qualified Code(s): K74.60 - Unspecified cirrhosis of liver; R18.8 - Other ascites Ascites Qualifiers: Ascites type: other type Qualified Code(s): R18.8 - Other ascites UTI (urinary tract infection) Qualifiers: Urinary tract infection type: site unspecified Hematuria presence: without hematuria Qualified Code(s): N39.0 - Urinary tract infection, site not specified Condition: Stable Critical Care Time: No Referrals: TERRY TRONCOSO [Primary Care Provider] - Instructions: Fluid in the Belly (Ascites), Acute Bronchitis, Nausea and Vomiting, Adult (DC), Cirrhosis (DC), Cough, Adult (DC) Prescriptions: Ondansetron ODT 4 MG [Zofran Odt 4 mg] 4 mg PO Q6H PRN PRN #10 tab.rapdis PRN Reason: Vomiting Levofloxacin [Levaquin] 500 mg PO DAILY #7 tablet
[2019-07-11] MEDS ORDERED: ROCEPHIN 1 Gm-D5w 50 ml Bag** 1 G/50 ML IVPB IV STA (16:46)
[2019-07-11] MEDS ORDERED: DUONEB 0.5-3 MG/3 ml Neb IH ONE ×2 (16:46→16:53)
[2019-07-11] MEDS ORDERED: Zithromax 250 MG TABLET PO ONE (16:46)
[2019-07-11] MEDS ORDERED: Zofran 4 MG/2 ML VIAL ONE (17:16)
[2019-07-11] MEDS ORDERED: Zithromax 250 MG TABLET ONE (17:16)
[2019-07-11] MEDS ORDERED: ROCEPHIN 1 Gm-D5w 50 ml Bag** 1 G/50 ML IVPB IV ONE (17:17)
[2019-07-11] MEDS ORDERED: Sodium Chloride 0.9% 1000 ML 1,000 ML ONE (17:17)
[2019-07-11] MEDS ORDERED: MORPHINE SULFATE 2 MG INJ ONE (17:17)
[2019-07-11 17:55] LABS: Absolute Neutrophil Ct (ANC) 9.34 (1.4-6.9); BASOPHIL % 0.3 % (0.0-0.4); Basophil (Absolute #) 0.04 (0-0.4); Eosinophil % 1.6 % (0.00-5.0); Eosinophil (Absolute #) 0.19 (0-0.5); Hematocrit 31.9 % (35-47); Hemoglobin 10.6 gm/dl (12.0-16.0); Lymphocyte (Absolute #) 1.83 (1.0-4.6); Lymphocytes % 15.3 % (24.0-44.0); Mean Cell Volume 78.6 fl (78-100); Mean Corpuscular Hemoglobin 26.1 pg (26-32); Mean Corpuscular Hgb Concent. 33.2 g/dl (32-36); Mean Platelet Volume 9.1 fl (6-9.5); Neutrophil % 77.8 % (36.0-66.0); Platelet Count 257 K/mm3 (150-450); Red Blood Count 4.06 M/mm3 (4.1-5.4); Red Cell Distribution Width 15.7 % (11.5-14.0)
[2019-07-11 18:13] LABS: ALBUMIN 3.1 g/dL (3.5-5.0); ALKALINE PHOSPHATASE 180 U/L (38-126); ANION GAP 14.2 MEQ/L (5-15); BLOOD UREA NITROGEN 11 mg/dL (7-17); CHLORIDE 91 mmol/L (98-107); Calcium 8.5 mg/dL (8.4-10.2); Carbon Dioxide 28 mmol/L (22-30); Creatinine 1 1.13 mg/dL (0.52-1.04); Glucose 146 mg/dL (74-106); LIPASE 31 U/L (23-300); Potassium 4.2 mmol/L (3.5-5.1); SGOT/AST 25 U/L (14-36); SGPT/ALT 9 U/L (0-35); SODIUM 129 mmol/L (137-145); Total Protein 7.4 g/dL (6.3-8.2)
[2019-07-11 18:20] LABS: TROPONIN < 0.012 ng/mL (0.000-0.034)
[2019-07-11 18:33] VITALS: O2SAT 100
[2019-07-11 19:55] VITALS: BP 131/76
[2019-07-11 20:07] LABS: Appearance CLOUDY (CLEAR); Bacteria MODERATE /HPF (NEGATIVE); Bilirubin NEGATIVE (NEGATIVE); Blood SMALL Ery/ul (0-5); Epithelial Cells RARE /HPF (FEW); Glucose NEGATIVE (NEGATIVE); Ketones NEGATIVE (NEGATIVE); Leukocyte Esterase LARGE (NEGATIVE); Mucus SLIGHT /HPF (NEGATIVE); Nitrite NEGATIVE (NEGATIVE); Protein,Urine Dip 100 (Negative); Specific Gravity 1.004 (1.005-1.025); Urobilinogen NEGATIVE mg/dL (0-1); WBC >100 /HPF (0-5)
[2019-07-11 20:08] LABS: Budding Yeast Rare /HPF (NEGATIVE)
[2019-07-11 20:32] VITALS: PULSE 96
--- NOTE | 2019-07-12 08:39 | XRAY ---
Indication: Abdominal pain and vomiting. Multiple contiguous axial images obtained through the abdomen and pelvis without contrast as ordered. Comparison: May 19, 2019. Lung bases again demonstrates diffuse scattered interstitial alveolar opacities and cylindrical bronchiectasis. No consolidation or large effusion. Heart is not enlarged. Noncontrasted stomach and bowel loops appear nonobstructed. Mild increasing scattered colonic fecal debris predominantly in the ascending and transverse colon. Stable cirrhotic liver with significant abdomen/pelvic ascites and 17 cm splenomegaly. No free air. Again previous cholecystectomy and hysterectomy. Urinary bladder remains distended with mild circumferential wall thickening presumed chronic. Remaining pancreas, adrenal glands, kidneys, and ureters unremarkable for noncontrast exam. Stable mild aortoiliac calcifications without AAA. Osseous structures again demonstrates mild degenerative changes throughout the thoracolumbar spine. Stable small fatty umbilical hernia. Impression: 1. Again cirrhotic liver with marked ascites and splenomegaly. 2. Urinary bladder distended again with chronic circumferential wall thickening. 3. Stable bibasilar pulmonary interstitial alveolar opacities and bronchiectasis. CT DI 12.11
--- NOTE | 2019-07-12 08:41 | XRAY ---
Indication: Cough 2 months. Comparison: June 10, 2019. Portable chest again demonstrates bibasilar interstitial alveolar opacities, right greater than left. Remaining heart, upper lungs, and bony thorax remain unremarkable.
== END 2019-07-11 20:42 | disposition home or self-care (01) ==
LOC: ED 15:22
DX: E87.1 Hypo-osmolality and hyponatremia (principal); R11.2 Nausea with vomiting, unspecified; J20.9 Acute bronchitis, unspecified; K74.60 Unspecified cirrhosis of liver; R18.8 Other ascites; N39.0 Urinary tract infection, site not specified; R10.9 Unspecified abdominal pain; F17.200 Nicotine dependence, unspecified, uncomplicated; J44.9 Chronic obstructive pulmonary disease, unspecified; R05 Cough; Z79.899 Other long term (current) drug therapy; Z79.891 Long term (current) use of opiate analgesic; Z79.4 Long term (current) use of insulin; E11.9 Type 2 diabetes mellitus without complications; I10 Essential (primary) hypertension
CPT/HCPCS: 36415; 71045; 74176; 80053; 81001; 83605; 83690; 84484; 85025; 87040; 87077; 87086; 87186; 93005; 94150; 94640; 96360; 96365; 96374; 96375; 99284; J0696; J2270; J2405; A9270-GY

== ENCOUNTER 2019-07-16 15:56 | Inpatient (IN) | payer MEDICARE ==
[2019-07-16 17:00] LABS: Absolute Neutrophil Ct (ANC) 6.46 (1.4-6.9); BASOPHIL % 0.2 % (0.0-0.4); Basophil (Absolute #) 0.02 (0-0.4); Eosinophil % 1.8 % (0.00-5.0); Eosinophil (Absolute #) 0.16 (0-0.5); Hematocrit 32.2 % (35-47); Hemoglobin 10.4 gm/dl (12.0-16.0); Lymphocyte (Absolute #) 1.55 (1.0-4.6); Lymphocytes % 17.6 % (24.0-44.0); Mean Cell Volume 79.9 fl (78-100); Mean Corpuscular Hemoglobin 25.8 pg (26-32); Mean Corpuscular Hgb Concent. 32.3 g/dl (32-36); Mean Platelet Volume 8.7 fl (6-9.5); Monocyte (Absolute #) 0.62 (0.0-1.3); Neutrophil % 73.4 % (36.0-66.0); Platelet Count 213 K/mm3 (150-450); Red Blood Count 4.03 M/mm3 (4.1-5.4); Red Cell Distribution Width 15.4 % (11.5-14.0); White Blood Count 8.8 K/mm3 (4.0-10.5)
[2019-07-16 17:08] LABS: INR 1.32 (0.8-3.0)
[2019-07-16 17:12] LABS: ALBUMIN 3.1 g/dL (3.5-5.0); ALKALINE PHOSPHATASE 162 U/L (38-126); ANION GAP 12.1 MEQ/L (5-15); BLOOD UREA NITROGEN 8 mg/dL (7-17); CHLORIDE 94 mmol/L (98-107); Calcium 8.5 mg/dL (8.4-10.2); Carbon Dioxide 28 mmol/L (22-30); Glucose 203 mg/dL (74-106); Potassium 4.1 mmol/L (3.5-5.1); SGOT/AST 18 U/L (14-36); SGPT/ALT 10 U/L (0-35); SODIUM 131 mmol/L (137-145); Total Protein 7.4 g/dL (6.3-8.2)
[2019-07-16] MEDS ORDERED: Sodium Chloride 0.9% 10 ML FLUSH Syringe IV PRN (17:15)
[2019-07-16] MEDS ORDERED: PROVENTIL COMMON CANISTER IH PRN (17:40)
[2019-07-16] MEDS: NovoLOG Insulin SQ PRN (17:45)
[2019-07-16] MEDS ORDERED: Ventolin Hfa MDI IH PRN (18:05)
[2019-07-16] MEDS ORDERED: NORCO 7.5/325 MG TAB PO PRN (18:21)
[2019-07-16] MEDS ORDERED: ZOFRAN ODT 4 MG PO PRN (18:36)
[2019-07-16] MEDS: Advair Hfa 230/21 Mcg COMMON CANISTER IH SCH (19:54)
[2019-07-16] MEDS ORDERED: PROTONIX 40 MG IV IV ONE (20:06)
[2019-07-16] MEDS: ROCEPHIN 1 Gm-D5w 50 ml Bag** 1 G/50 ML IVPB IV SCH (20:12)
[2019-07-16] MEDS: PROTONIX 40 MG IV IV SCH (20:12)
[2019-07-16] MEDS: solu-MEDROL 125 MG IV SCH (20:12)
[2019-07-16] MEDS: Sodium Chloride 0.9% 10 ML FLUSH Syringe IV SCH (20:12)
[2019-07-16] MEDS: Zithromax 500 MG/ 250 ML NaCl Premix 500 MG/250 ML IVPB IV SCH (20:12)
[2019-07-16] MEDS: Colace 100 MG PO SCH (20:39)
[2019-07-16] MEDS: FEOSOL 325 MG PO SCH (20:39)
[2019-07-16] MEDS: NEURONTIN 300 MG PO SCH (20:40)
[2019-07-16] MEDS: Zocor 10MG PO SCH (20:40)
[2019-07-16] MEDS: Cymbalta 30 MG Capsule PO SCH (20:40)
[2019-07-16] MEDS: Phenergan 25 MG INJ IV PRN (20:41)
[2019-07-16] MEDS ORDERED: ATARAX 25 MG PO SCH (22:00)
[2019-07-17] MEDS: solu-MEDROL 125 MG IV SCH ×4 (00:48→18:08)
[2019-07-17 04:45] LABS: Appearance SLIGHTLY CLOUDY (CLEAR); Bilirubin NEGATIVE (NEGATIVE); Blood SMALL Ery/ul (0-5); Epithelial Cells RARE /HPF (FEW); Glucose 50 mg/dL (NEGATIVE); Ketones NEGATIVE (NEGATIVE); Leukocyte Esterase LARGE (NEGATIVE); Mucus SLIGHT /HPF (NEGATIVE); Nitrite NEGATIVE (NEGATIVE); Protein,Urine Dip 100 (Negative); Specific Gravity 1.009 (1.005-1.025); Urobilinogen NEGATIVE mg/dL (0-1); WBC >100 /HPF (0-5)
[2019-07-17] MEDS: Sodium Chloride 0.9% 10 ML FLUSH Syringe IV SCH ×3 (05:29→21:15)
[2019-07-17] MEDS ORDERED: NORCO 7.5/325 MG TAB PO PRN (06:36)
[2019-07-17] MEDS ORDERED: PROVENTIL COMMON CANISTER IH PRN (06:38)
[2019-07-17] MEDS: Advair Hfa 230/21 Mcg COMMON CANISTER IH SCH ×2 (07:17→21:10)
[2019-07-17] MEDS ORDERED: Protonix 40MG Tablet PO SCH (08:00)
[2019-07-17] MEDS: NovoLOG Insulin SQ PRN ×4 (08:11→21:09)
--- NOTE | 2019-07-17 08:31 | XRAY ---
Indication: Cough. COPD exacerbation. Comparison: July 11, 2019. AP/lateral chest unchanged again demonstrating diffuse bilateral interstitial alveolar opacities, right greater than left. Heart is not enlarged. No new cardiopulmonary abnormalities.
[2019-07-17 09:37] LABS: Hematocrit 31.7 % (35-47); Hemoglobin 10.3 gm/dl (12.0-16.0); Mean Cell Volume 79.4 fl (78-100); Mean Corpuscular Hemoglobin 25.8 pg (26-32); Mean Corpuscular Hgb Concent. 32.5 g/dl (32-36); Mean Platelet Volume 8.8 fl (6-9.5); Platelet Count 189 K/mm3 (150-450); Red Blood Count 3.99 M/mm3 (4.1-5.4); Red Cell Distribution Width 15.3 % (11.5-14.0); White Blood Count 5.2 K/mm3 (4.0-10.5)
[2019-07-17] MEDS ORDERED: NON-FORMULARY ITEM (Tapentadol Hcl [Nucynta Er] 200 MG) PO SCH (10:00)
[2019-07-17 11:11] LABS: ALBUMIN 3.2 g/dL (3.5-5.0); ANION GAP 16.2 MEQ/L (5-15); BILIRUBIN,TOTAL 0.4 mg/dL (0.2-1.3); Calcium 8.5 mg/dL (8.4-10.2); Creatinine 1 1.04 mg/dL (0.52-1.04); Potassium 5.2 mmol/L (3.5-5.1); Total Protein 7.7 g/dL (6.3-8.2)
[2019-07-17] MEDS: Sodium Chloride 0.9% 1000 ML 1,000 ML IV SCH (11:27)
[2019-07-17] MEDS: PROTONIX 40 MG IV IV SCH (11:30)
[2019-07-17] MEDS: Phenergan 25 MG INJ IV PRN (11:30)
[2019-07-17] MEDS: ROCEPHIN 1 Gm-D5w 50 ml Bag** 1 G/50 ML IVPB IV SCH (11:32)
[2019-07-17] MEDS: Zestril 5 MG PO SCH ×2 (11:36→13:05)
[2019-07-17] MEDS: NORVASC 5 MG PO SCH ×2 (11:36→13:06)
[2019-07-17] MEDS: BUMEX 1 MG PO SCH (11:36)
[2019-07-17] MEDS: SYNTHROID 25 MCG PO SCH ×2 (11:36→13:04)
[2019-07-17] MEDS: NEURONTIN 300 MG PO SCH ×3 (11:36→21:09)
[2019-07-17] MEDS: FEOSOL 325 MG PO SCH ×2 (11:36→21:09)
[2019-07-17] MEDS: ATARAX 25 MG PO SCH ×2 (11:37→21:10)
--- NOTE | 2019-07-17 12:16 | XRAY ---
Indication: Ascites. Informed consent obtained. Patient placed supine. Initial 4 quadrant abdominal ultrasound performed for localization. Largest pocket in the right mid abdomen. The abdominal wall was prepped and draped in sterile fashion. 1% lidocaine plain was used for local anesthesia. Tiny skin incision made. 5 Slovak Yueh paracentesis needle/catheter was then percutaneously inserted. Once fluid was aspirating, the outer catheter was then advanced with the inner needle removed. Catheter was connected to a Vacutainer. Approximately 750 cc of clear almaz fluid was aspirated when the catheter stopped draining for unknown reason. Repeat sonogram continue to demonstrate large ascites. Catheter was manipulated unsuccessfully. Site was abandoned. A second percutaneous paracentesis site was identified just superior to this. Again abdominal wall was prepped and draped in sterile fashion. 1% lidocaine plain used for local anesthesia. Tiny skin incision made. 5 Slovak UV paracentesis needle/catheter was then percutaneously inserted until fluid was noted aspirating easily. Outer catheter was advanced with the inner needle removed. Catheter connected to a Vacutainer. Approximately 3 L of grape-colored transudative fluid was aspirated. All the fluid was collected and sent to laboratory. Repeat sonogram demonstrates marked improvement with small residual. Catheter removed. Band-Aid applied over the puncture site. Patient was discharged in good condition. Impression: Technically successful ultrasound-guided abdominal paracentesis for diagnostic and therapeutic purpose. Approximately 3.75 L of fluid aspirated. Second puncture/paracentesis site revealed a different color transudative fluid, grape in color. Case was discussed with the ordering clinician Dr. Ayala via telephone. I informed her my concern for possible postprocedure hemorrhage and recommended close observation including monitoring vital signs and hemoglobin/hematocrit.
[2019-07-17] MEDS: PATIENT OWN MEDICATION PO SCH ×2 (13:04→21:16)
[2019-07-17] MEDS: Zithromax 500 MG/ 250 ML NaCl Premix 500 MG/250 ML IVPB IV SCH (13:05)
[2019-07-17] MEDS ORDERED: Lantus Insulin SQ ONE (13:15)
[2019-07-17 13:36] LABS: Hematocrit 31.8 % (35-47); Hemoglobin 10.4 gm/dl (12.0-16.0)
--- NOTE | 2019-07-17 14:02 | HP ---
HISTORY OF PRESENT ILLNESS: This is a 54 year-old patient of mine who presented to the clinic yesterday. She reports that she had been coughing and vomiting for the past two weeks. She was seen in the emergency room last Monday and was diagnosed with urinary tract infection and given first levofloxacin which had been changed to Keflex to take at home for that. She had a CT scan of her abdomen and pelvis there in the emergency room. I reviewed the report on that. It was read as cirrhotic liver, marked ascites and splenomegaly. Please see the radiologist dictation for the full report. She also had a chest x-ray that was read as bibasilar interstitial alveolar opacities right greater than left. The patient reports she has not had much of an appetite at home. She is not using her insulin pump due to not eating well. She has a history of ascites and she has seen Dr. Valencia's nurse practitioner in regards to figuring out where the etiology is for the cirrhosis of her liver that is causing the ascites. She has had numerous paracentesis at [facility] as well as [facility] in the past for this. The patient reports some epigastric pain. REVIEW OF SYSTEMS: No fever. She is urinating well. Mild epigastric abdominal pain. No difficulty breathing. She denies any sores on her skin. She has been more fatigued and nauseated sometimes with vomiting. PAST MEDICAL HISTORY: Cirrhosis of unknown etiology being worked up by Dr. Valencia's office. Asthma. Chronic obstructive pulmonary disease. Depression. Diabetes mellitus type [address] Navarro for. Hypertension. Iron deficiency anemia. PAST SURGICAL HISTORY: Amputation of her leg below the knee on the left. section x3. Cholecystectomy. Hysterectomy. Laparoscopy. Tonsillectomy. Left foot surgery. SOCIAL HISTORY: She smokes one-fourth pack per day of cigarettes. Denies any alcohol use. She is currently staying with her brother. FAMILY HISTORY: Noncontributory. PHYSICAL EXAMINATION: VITAL SIGNS: Temperature current 98.3F, temperature max 98.5F, heart rate 108, respiratory rate 18, blood pressure 134/91. Oxygen saturation 94% on room air. GENERAL: The patient is lying in bed in no acute distress. She appears chronically ill. She is pale. CVS: She is tachycardic with a regular rhythm. No murmurs, gallops or rubs are appreciated. CHEST: She has rhonchi scattered throughout her lung villalpando. No retractions. Equal breath sounds. ABDOMEN: Distended with mild epigastric tenderness. No guarding. No rigidity. EXTREMITIES: No clubbing, cyanosis or edema. She has left below knee amputation. LABORATORY DATA AND TESTS: Hemoglobin 10.4, PLT 213,000, white blood cell count 8.3. International normalized ratio 1.3. Sodium 131, chloride 94, glucose 203. Hemoglobin A1C 7.32. AST and ALT are normal. UA had greater than 100 white blood cells, 6 to 10 red blood cells, 100 protein. She has urine culture in lab. EKG is sinus rhythm with no ST-T wave changes. Chest x-ray was read as diffuse bilateral interstitial alveolar opacities right greater than left. Please see the radiologist report for the full dictation. ASSESSMENT AND PLAN: 1) CHRONIC OBSTRUCTIVE PULMONARY DISEASE, EXACERBATION: I started her on azithromycin and ceftriaxone as well as IV steroids. She has been continued on her home breathing medications and RT is following her. I have asked her cloud solutions architect, Dr. Zachery Galan to see her. 2) CIRRHOSIS OF THE LIVER WITH ASCITIES: Again the etiology of the cirrhosis is not known. She was recently agreeable to seeing a locomotive operator and had initial appointment with them and has follow up scheduled next month including an upper endoscopy to look for what sounds like varices. She has no known varices at this time. Will plan for therapeutic and diagnostic paracentesis with Dr. Abilio Back under ultrasound guidance. 3) DIABETES MELLITUS TYPE 2: Again, she usually sees Dr. Navarro and is on an insulin pump but right now she is off of that due to poor oral intake. Will continue with a low dose sliding scale and consider adding low dose of Lantus. 4) URINARY TRACT INFECTION: Will continue with ceftriaxone and await the next urine culture. 5) NAUSEA: It could be due to the ascites and cirrhosis. 6) TOBACCO ABUSE: The patient will need to be counseled that she should completely quit smoking.
[2019-07-17 14:57] LABS: ANISOCYTOSIS 1+; Lymphocytes 14 % (24-44); Monocyte 4 % (0.0-12.0); Neutrophils 82 % (36.0-66.0); Platelet Estimate NORMAL (NORMAL); Total Cells Counted 100; Toxic Granulation 1+
[2019-07-17 17:44] LABS: Hemoglobin 9.9 gm/dl (12.0-16.0)
[2019-07-17] MEDS ORDERED: Mucomyst 200 MG/ML ONE (20:19)
[2019-07-17] MEDS: Zocor 10MG PO SCH (21:09)
[2019-07-17] MEDS: Colace 100 MG PO SCH (21:09)
[2019-07-17] MEDS: Cymbalta 30 MG Capsule PO SCH (21:09)
[2019-07-17] MEDS: PROVENTIL 2.5 MG/3 ML NEB IH SCH (21:09)
[2019-07-17] MEDS: Mucomyst 200 MG/ML IH SCH (21:10)
[2019-07-18] MEDS: solu-MEDROL 125 MG IV SCH ×4 (00:09→22:09)
[2019-07-18] MEDS: Phenergan 25 MG INJ IV PRN ×2 (04:30→08:37)
[2019-07-18 04:50] LABS: Absolute Neutrophil Ct (ANC) 6.69 (1.4-6.9); BASOPHIL % 0.1 % (0.0-0.4); Basophil (Absolute #) 0.01 (0-0.4); Eosinophil % 0.1 % (0.00-5.0); Eosinophil (Absolute #) 0.01 (0-0.5); Hemoglobin 9.5 gm/dl (12.0-16.0); Lymphocyte (Absolute #) 0.66 (1.0-4.6); Lymphocytes % 8.7 % (24.0-44.0); Mean Cell Volume 79.7 fl (78-100); Mean Corpuscular Hgb Concent. 32.8 g/dl (32-36); Mean Platelet Volume 9.2 fl (6-9.5); Monocytes % 2.6 % (0.0-12.0); Neutrophil % 88.5 % (36.0-66.0); Platelet Count 158 K/mm3 (150-450); Red Blood Count 3.64 M/mm3 (4.1-5.4); Red Cell Distribution Width 15.1 % (11.5-14.0); White Blood Count 7.6 K/mm3 (4.0-10.5)
[2019-07-18 04:57] LABS: ALBUMIN 2.8 g/dL (3.5-5.0); ALKALINE PHOSPHATASE 135 U/L (38-126); ANION GAP 12.7 MEQ/L (5-15); BLOOD UREA NITROGEN 13 mg/dL (7-17); CHLORIDE 93 mmol/L (98-107); Calcium 8.2 mg/dL (8.4-10.2); Carbon Dioxide 26 mmol/L (22-30); Creatinine 1 0.98 mg/dL (0.52-1.04); Glucose 289 mg/dL (74-106); Potassium 4.6 mmol/L (3.5-5.1); SGOT/AST 14 U/L (14-36); SGPT/ALT 8 U/L (0-35); SODIUM 127 mmol/L (137-145); Total Protein 6.8 g/dL (6.3-8.2)
[2019-07-18] MEDS: Sodium Chloride 0.9% 10 ML FLUSH Syringe IV SCH ×3 (06:14→23:00)
[2019-07-18] MEDS: PROVENTIL 2.5 MG/3 ML NEB IH SCH ×4 (07:08→19:36)
[2019-07-18] MEDS: Mucomyst 200 MG/ML IH SCH ×2 (07:08→19:38)
[2019-07-18] MEDS: Advair Hfa 230/21 Mcg COMMON CANISTER IH SCH ×2 (07:09→19:38)
[2019-07-18] MEDS: Sodium Chloride 0.9% 1000 ML 1,000 ML IV SCH (07:47)
--- NOTE | 2019-07-18 07:50 | CONS ---
CONSULT DATE: 07/17/2019 HISTORY: Heather Bonilla is a 54 year-old woman with history of chronic obstructive pulmonary disease who has been admitted with complaints of cough, shortness of breath and wheezing. The patient has reportedly has been getting gradually worse. In addition, she was noted to have cirrhosis of the liver requiring frequent paracentesis. The patient underwent paracentesis today where 3.75 liters of fluid was aspirated from abdominal cavity. At the time of my evaluation she appears comfortable. She does complain of cough which has been minimally productive. The patient has a feeling that she has mucus but is unable to cough it up. PAST MEDICAL HISTORY: She had been diagnosed with chronic obstructive pulmonary disease and chronic bronchitis. Besides this she has history of cirrhosis of liver along with diabetes mellitus. Besides this the patient has history of anemia. PAST SURGICAL HISTORY: No recent surgery. PERSONAL AND SOCIAL HISTORY: She is a middle aged woman who appears chronically ill. PHYSICAL EXAMINATION: Vital signs noted. HEENT: Normocephalic. Oral exam limited. Partly edentulous. NECK: Supple. CVS: First and second heart sounds are normal, regular, rhythmic. RESPIRATORY: Shows diminished breath sounds, scattered rhonchi are heard. ABDOMEN: Soft. EXTREMITIES: Trace edema is noted. LABORATORY DATA AND TESTS: X-rays reviewed. ASSESSMENT: A 54 year old woman admitted with: 1) Chronic obstructive pulmonary disease with mild exacerbation. 2) Acute bronchitis. 3) Cirrhosis of liver with ascites having undergone paracentesis. 4) Anemia. 5) Diabetes mellitus. RECOMMENDATIONS: 1) The patient is clinically improving. 2) Continue bronchodilators. 3) Will add Mucomyst and flutter valve to improve pulmonary toilet. 4) Advised gradual steroid taper, continue other supportive care. I will follow up in outpatient setting when released from the hospital.
[2019-07-18] MEDS ORDERED: Lantus Insulin SQ SCH (08:00)
[2019-07-18] MEDS: NovoLOG Insulin SQ PRN ×4 (08:35→22:10)
[2019-07-18] MEDS: Zithromax 500 MG/ 250 ML NaCl Premix 500 MG/250 ML IVPB IV SCH (09:40)
[2019-07-18] MEDS: ROCEPHIN 1 Gm-D5w 50 ml Bag** 1 G/50 ML IVPB IV SCH (09:40)
[2019-07-18] MEDS: BUMEX 1 MG PO SCH (09:41)
[2019-07-18] MEDS: PROTONIX 40 MG IV IV SCH (09:41)
[2019-07-18] MEDS: SYNTHROID 25 MCG PO SCH (09:41)
[2019-07-18] MEDS: FEOSOL 325 MG PO SCH ×2 (09:41→22:09)
[2019-07-18] MEDS: Zestril 5 MG PO SCH (09:41)
[2019-07-18] MEDS: ATARAX 25 MG PO SCH ×2 (09:41→22:59)
[2019-07-18] MEDS: NEURONTIN 300 MG PO SCH ×3 (09:41→22:09)
[2019-07-18] MEDS: NORVASC 5 MG PO SCH (09:41)
[2019-07-18] MEDS: VITAMIN D2 PO SCH (09:41)
[2019-07-18] MEDS: PATIENT OWN MEDICATION PO SCH ×2 (09:42→22:59)
--- NOTE | 2019-07-18 10:25 | PCM.NOTE ---
Date and Time: 07/18/19 1020 Subjective Assessment: Patient reports she feels a little bit better and not coughing as much. She reports nausea at times which nausea medication helps with. She has been getting up to the chair and getting to the bathroom with assistance. She does not think she will need a rehab stay before going home. She reports some continued abdominal pain. She has upcoming ultrasound at [facility] ordered by Dr. Valencia and upcoming upper endoscopy with Dr. Valencia this month as well as follow up with him. - Review of Systems Constitutional: Fatigue Eyes: No Symptoms Ears, Nose, & Throat: No Symptoms Respiratory: Cough Cardiac: No Symptoms Abdominal/Gastrointestinal: Abdominal Pain Genitourinary Symptoms: No Symptoms Musculoskeletal: No Symptoms Objective Exam General Appearance: no apparent distress Neurologic Exam: alert, cooperative Skin Exam: normal color, warm, dry Respiratory Exam: other (few scattered wheezes at bases, no crackles, no rhonchi ) Cardiovascular Exam: regular rate/rhythm, No murmur, No friction rub, No gallop Gastrointestinal/Abdomen Exam: soft, normal bowel sounds, No tenderness, No distention, No mass Extremity Exam: other (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, no c/c/e of right leg) OBJECTIVE DATA Vital Signs: Vital Signs - 24 hr Temp Pulse Resp BP Pulse Ox 07/18/19 07:22 98.4 F 108 H 18 151/72 94 L 07/18/19 07:00 95 H 18 97 07/18/19 04:15 98.2 F 108 H 18 176/81 95 07/17/19 23:42 98.8 F 93 H 20 127/62 96 07/17/19 21:11 99 H 16 95 07/17/19 19:44 97.7 F 104 H 16 122/62 95 07/17/19 16:00 98.8 F 103 H 18 148/70 92 L 07/17/19 11:57 98.3 F 108 H 18 134/91 94 L Pain Assessment - Last Documented Pain Intensity 7 Pain Scale Used [facility] Intake and Output: Intake & Output 07/16/19 07/17/19 07/18/19 07/19/19 06:59 06:59 06:59 06:59 Intake Total 458 2081 Output Total 500 1600 650 Balance -42 481 -650 Weight 67.1 kg 64 kg Lab Results: Accuchecks Date 07/18/19 Date 07/17/19 Date 07/17/19 Time 05:00 Time 16:40 Time 11:30 Accucheck Value: 305 Accucheck Value: 338 Accucheck Value: 328 Lab Results-Last 24 Hours 07/17/19 07/17/19 07/17/19 Range/Units 09:25 09:25 12:04 WBC (4.0-10.5) K/mm3 RBC (4.1-5.4) M/mm3 Hgb (12.0-16.0) gm/dl Hct (35-47) % MCV (78-100) fl MCH (26-32) pg MCHC (32-36) g/dl RDW (11.5-14.0) % Plt Count (150-450) K/mm3 MPV (6-9.5) fl Gran % (36.0-66.0) % Eos # (Auto) (0-0.5) Absolute Lymphs (auto) (1.0-4.6) Absolute Monos (auto) (0.0-1.3) Lymphocytes % (24.0-44.0) % Monocytes % (0.0-12.0) % Eosinophils % (0.00-5.0) % Basophils % (0.0-0.4) % Absolute Granulocytes (1.4-6.9) Segmented Neutrophils 82 H (36.0-66.0) % Lymphocytes (Manual) 14 L (24-44) % Monocytes (Manual) 4 (0.0-12.0) % Basophils # (0-0.4) Toxic Granulation 1+ Platelet Estimate NORMAL (NORMAL) RBC Morphology ABNORMAL Anisocytosis 1+ Sodium 131 L (137-145) mmol/L Potassium 5.2 H D (3.5-5.1) mmol/L Chloride 95 L (98-107) mmol/L Carbon Dioxide 24 (22-30) mmol/L Anion Gap 16.2 H (5-15) MEQ/L BUN 11 (7-17) mg/dL Creatinine 1.04 (0.52-1.04) mg/dL Estimated GFR 59.1 ML/MIN Glucose 325 H (74-106) mg/dL Calcium 8.5 (8.4-10.2) mg/dL Total Bilirubin 0.40 (0.2-1.3) mg/dL AST 19 (14-36) U/L ALT 12 (0-35) U/L Alkaline Phosphatase 165 H (38-126) U/L Serum Total Protein 7.7 (6.3-8.2) g/dL Albumin 3.2 L (3.5-5.0) g/dL Fluid Differential SEE SEPARATE REPORT Fluid Tot Cell Count SEE SEPARATE REPORT Fluid Glucose SEE SEPARATE REPORT Fluid Total Protein SEE SEPARATE REPORT Fluid LDH SEE SEPARATE REPORT 07/17/19 07/17/19 07/18/19 Range/Units 13:34 17:30 04:47 WBC 7.6 (4.0-10.5) K/mm3 RBC 3.64 L (4.1-5.4) M/mm3 Hgb 10.4 L 9.9 L 9.5 L (12.0-16.0) gm/dl Hct 31.8 L 30.0 L 29.0 L (35-47) % MCV 79.7 (78-100) fl MCH 26.0 (26-32) pg MCHC 32.8 (32-36) g/dl RDW 15.1 H (11.5-14.0) % Plt Count 158 (150-450) K/mm3 MPV 9.2 (6-9.5) fl Gran % 88.5 H (36.0-66.0) % Eos # (Auto) 0.01 (0-0.5) Absolute Lymphs (auto) 0.66 L (1.0-4.6) Absolute Monos (auto) 0.20 (0.0-1.3) Lymphocytes % 8.7 L (24.0-44.0) % Monocytes % 2.6 (0.0-12.0) % Eosinophils % 0.1 (0.00-5.0) % Basophils % 0.1 (0.0-0.4) % Absolute Granulocytes 6.69 (1.4-6.9) Segmented Neutrophils (36.0-66.0) % Lymphocytes (Manual) (24-44) % Monocytes (Manual) (0.0-12.0) % Basophils # 0.01 (0-0.4) Toxic Granulation Platelet Estimate (NORMAL) RBC Morphology Anisocytosis Sodium (137-145) mmol/L Potassium (3.5-5.1) mmol/L Chloride (98-107) mmol/L Carbon Dioxide (22-30) mmol/L Anion Gap (5-15) MEQ/L BUN (7-17) mg/dL Creatinine (0.52-1.04) mg/dL Estimated GFR ML/MIN Glucose (74-106) mg/dL Calcium (8.4-10.2) mg/dL Total Bilirubin (0.2-1.3) mg/dL AST (14-36) U/L ALT (0-35) U/L Alkaline Phosphatase (38-126) U/L Serum Total Protein (6.3-8.2) g/dL Albumin (3.5-5.0) g/dL Fluid Differential Fluid Tot Cell Count Fluid Glucose Fluid Total Protein Fluid LDH 07/18/19 Range/Units 04:47 WBC (4.0-10.5) K/mm3 RBC (4.1-5.4) M/mm3 Hgb (12.0-16.0) gm/dl Hct (35-47) % MCV (78-100) fl MCH (26-32) pg MCHC (32-36) g/dl RDW (11.5-14.0) % Plt Count (150-450) K/mm3 MPV (6-9.5) fl Gran % (36.0-66.0) % Eos # (Auto) (0-0.5) Absolute Lymphs (auto) (1.0-4.6) Absolute Monos (auto) (0.0-1.3) Lymphocytes % (24.0-44.0) % Monocytes % (0.0-12.0) % Eosinophils % (0.00-5.0) % Basophils % (0.0-0.4) % Absolute Granulocytes (1.4-6.9) Segmented Neutrophils (36.0-66.0) % Lymphocytes (Manual) (24-44) % Monocytes (Manual) (0.0-12.0) % Basophils # (0-0.4) Toxic Granulation Platelet Estimate (NORMAL) RBC Morphology Anisocytosis Sodium 127 L (137-145) mmol/L Potassium 4.6 (3.5-5.1) mmol/L Chloride 93 L (98-107) mmol/L Carbon Dioxide 26 (22-30) mmol/L Anion Gap 12.7 (5-15) MEQ/L BUN 13 (7-17) mg/dL Creatinine 0.98 (0.52-1.04) mg/dL Estimated GFR > 60.0 ML/MIN Glucose 289 H (74-106) mg/dL Calcium 8.2 L (8.4-10.2) mg/dL Total Bilirubin 0.40 (0.2-1.3) mg/dL AST 14 (14-36) U/L ALT 8 (0-35) U/L Alkaline Phosphatase 135 H (38-126) U/L Serum Total Protein 6.8 (6.3-8.2) g/dL Albumin 2.8 L (3.5-5.0) g/dL Fluid Differential Fluid Tot Cell Count Fluid Glucose Fluid Total Protein Fluid LDH Radiology Exams: Radiology Procedures Category Date Time Status ABDOMINAL PARACENTESIS [US] Routine Exams 07/17/19 09:00 Completed CHEST 2 VIEWS (PA AND LAT) Routine Exams 07/16/19 16:30 Completed Assessment/Plan (1) COPD with exacerbation Current Visit: Yes Status: Acute Assessment & Plan: Continue IV antibiotics and IV steroids; Dr. Galan has seen patient and plans to follow up with her as an outpatient. Clinically she is slowly improving. Code(s): J44.1 - CHRONIC OBSTRUCTIVE PULMONARY DISEASE W (ACUTE) EXACERBATION (2) Cirrhosis of liver with ascites Current Visit: Yes Status: Acute Assessment & Plan: Ascitic fluid revealed uncomplicated ascites in cirrhosis as no WBC in fluid, serum - ascitic albumin gradient 5.3 and protein <2.5. She follows with Dr. Valencia as an outpatient. Code(s): K74.60 - UNSPECIFIED CIRRHOSIS OF LIVER; R18.8 - OTHER ASCITES (3) Diabetes mellitus type 2, uncontrolled Current Visit: No Status: Acute Assessment & Plan: Lantus started yesterday at 10 units a day, will increase to 2 units and continue low dose sliding scale. Code(s): E11.65 - TYPE 2 DIABETES MELLITUS WITH HYPERGLYCEMIA (4) UTI (urinary tract infection) Current Visit: No Status: Acute Assessment & Plan: Urine culture grew mixed mohan. Will continue antibiotics at this time. She had positive urine culture from ER visit last Monday. Code(s): N39.0 - URINARY TRACT INFECTION, SITE NOT SPECIFIED (5) Nausea Current Visit: Yes Status: Acute Assessment & Plan: Improving Code(s): R11.0 - NAUSEA (6) Hyponatremia Current Visit: No Status: Acute Assessment & Plan: She reports she sees Dr. Thrasher as outpatient. Will continue with gentle hydration with normal saline. May be related to fluid shift after paracentesis. Continue to monitor and will ask Dr. Thrasher for consultation. Code(s): E87.1 - HYPO-OSMOLALITY AND HYPONATREMIA (7) Tobacco abuse Current Visit: Yes Status: Acute Assessment & Plan: Will ask for Tob abuse counseling Code(s): Z72.0 - TOBACCO USE
[2019-07-18] MEDS ORDERED: Lantus Insulin SQ ONE (11:00)
[2019-07-18 20:01] LABS: A-aADO2 54; ABG HEMOGLOBIN 10.1; ABG POTASSIUM 4.5 (3.5-5.1); ABG SITE RIGHT RADIAL; ALLEN TEST OK? YES; ARTERIAL BLD GAS O2 SATURATION 99.6 % (95-100); ARTERIAL BLOOD GAS BASE EXCESS 0.5 (-2.0-2.0); ARTERIAL BLOOD GAS FIO2 40 %; ARTERIAL BLOOD GAS PCO2 45 mmHg (35-45); ARTERIAL BLOOD GAS PO2 175 mmHg (75-100); ARTERIAL BLOOD GAS pH 7.37 (7.35-7.45); CARBOXYHEMOGLOBIN 2.2 % THgb (0.0-6.9); HGB O2 SAT 96.3 g/dF (94-100); Methhemoglobin 1.1 % (1.4-1.5); paO2 pAO1 0.76
[2019-07-18] MEDS ORDERED: Narcan 0.4 MG/ML ONE (20:21)
[2019-07-18] MEDS ORDERED: Sodium Chloride 0.9% 1000 ML 1,000 ML IV STA (20:30)
[2019-07-18 20:32] LABS: Hematocrit 30.6 % (35-47); Hemoglobin 9.9 gm/dl (12.0-16.0); Mean Cell Volume 79.9 fl (78-100); Mean Corpuscular Hemoglobin 25.8 pg (26-32); Mean Corpuscular Hgb Concent. 32.4 g/dl (32-36); Mean Platelet Volume 8.9 fl (6-9.5); Platelet Count 210 K/mm3 (150-450); Red Blood Count 3.83 M/mm3 (4.1-5.4); Red Cell Distribution Width 14.9 % (11.5-14.0); White Blood Count 11.2 K/mm3 (4.0-10.5)
[2019-07-18] MEDS ORDERED: Narcan 0.4 MG/ML IV ONE ×2 (20:32→23:21)
[2019-07-18 20:43] LABS: ANION GAP 15.6 MEQ/L (5-15); BILIRUBIN,TOTAL 0.3 mg/dL (0.2-1.3); Calcium 8.4 mg/dL (8.4-10.2); Creatinine 1 1.11 mg/dL (0.52-1.04); Potassium 4.7 mmol/L (3.5-5.1)
[2019-07-18 21:10] LABS: Appearance CLEAR (CLEAR); Bilirubin NEGATIVE (NEGATIVE); Blood NEGATIVE Ery/ul (0-5); Glucose 150 mg/dL (NEGATIVE); Ketones NEGATIVE (NEGATIVE); Leukocyte Esterase TRACE (NEGATIVE); Nitrite NEGATIVE (NEGATIVE); Protein,Urine Dip 100 (Negative); Specific Gravity 1.006 (1.005-1.025); Urobilinogen NEGATIVE mg/dL (0-1)
[2019-07-18 21:29] LABS: Amphetamine,Urine NEGATIVE (NEGATIVE); Barbiturate,Urine NEGATIVE (NEGATIVE); Benzodiazepine,Urine NEGATIVE (NEGATIVE); Cocaine,Urine NEGATIVE (NEGATIVE); Methadone,Urine NEGATIVE (NEGATIVE); Opiate,Urine NEGATIVE (NEGATIVE); PCP,Urine NEGATIVE (NEGATIVE); THC,Urine NEGATIVE (NEGATIVE)
[2019-07-18] MEDS: Cymbalta 30 MG Capsule PO SCH (22:09)
[2019-07-18] MEDS: Colace 100 MG PO SCH (22:09)
[2019-07-18] MEDS: Zocor 10MG PO SCH (22:10)
[2019-07-18] MEDS: MOTRIN 600 MG PO PRN (22:11)
[2019-07-19] MEDS ORDERED: Narcan 0.4 MG/ML IV ONE (00:43)
[2019-07-19 04:33] LABS: Absolute Neutrophil Ct (ANC) 6.67 (1.4-6.9); Basophil (Absolute #) 0 (0-0.4); Eosinophil (Absolute #) 0 (0-0.5); Hematocrit 28.9 % (35-47); Hemoglobin 9.3 gm/dl (12.0-16.0); Lymphocyte (Absolute #) 0.64 (1.0-4.6); Lymphocytes % 8.5 % (24.0-44.0); Mean Cell Volume 80.7 fl (78-100); Mean Corpuscular Hgb Concent. 32.2 g/dl (32-36); Monocyte (Absolute #) 0.18 (0.0-1.3); Monocytes % 2.4 % (0.0-12.0); Neutrophil % 89.1 % (36.0-66.0); Platelet Count 156 K/mm3 (150-450); Red Blood Count 3.58 M/mm3 (4.1-5.4); Red Cell Distribution Width 14.9 % (11.5-14.0); White Blood Count 7.5 K/mm3 (4.0-10.5)
[2019-07-19 04:35] LABS: Mean Corpuscular Hemoglobin 25.9 pg (26-32)
[2019-07-19 04:43] LABS: ALBUMIN 2.7 g/dL (3.5-5.0); ANION GAP 11.7 MEQ/L (5-15); BILIRUBIN,TOTAL 0.3 mg/dL (0.2-1.3); Calcium 8.2 mg/dL (8.4-10.2); Creatinine 1 1.15 mg/dL (0.52-1.04); Potassium 4.7 mmol/L (3.5-5.1); Total Protein 6.4 g/dL (6.3-8.2)
[2019-07-19] MEDS: solu-MEDROL 125 MG IV SCH ×3 (05:31→20:44)
[2019-07-19] MEDS: Sodium Chloride 0.9% 10 ML FLUSH Syringe IV SCH ×5 (05:31→20:44)
[2019-07-19] MEDS: Advair Hfa 230/21 Mcg COMMON CANISTER IH SCH ×2 (06:42→19:39)
[2019-07-19] MEDS: PROVENTIL 2.5 MG/3 ML NEB IH SCH ×2 (06:42→19:38)
[2019-07-19] MEDS: Mucomyst 200 MG/ML IH SCH ×2 (06:42→19:39)
[2019-07-19] MEDS: Lantus Insulin SQ SCH (08:13)
[2019-07-19] MEDS: NovoLOG Insulin SQ PRN ×4 (08:13→20:44)
--- NOTE | 2019-07-19 08:47 | PCM.NOTE ---
Date and Time: 07/19/19 08 Subjective Assessment: Patient reports she had headache last night and took tylenol from her purse and this is all she remembers. She was found to have decreased responsiveness and decreased respirations and had code rapid called as detailed in her chart and nurses notes and was transferred to ICU per er doctor and Dr. Pizarro who was also called. She required 3 doses of narcan and bipap. When I asked her today if there was something besides tylenol in her bottle, she said there is nucynta but that nucynta is blue and tylenol is white. She had not been taking the nucynta regularly at home she states due to not needing it. Dr. New is her pain management doctor and she has an upcoming appointment later this month. She states that she does not have narcan at home. Patient reports her abdominal pain is better and her breathing is ok but she wants to try to get off the oxygen. - Review of Systems Constitutional: No Symptoms Respiratory: No Symptoms Cardiac: No Symptoms Abdominal/Gastrointestinal: No Symptoms Genitourinary Symptoms: No Symptoms Neurological: Headache, Other OBJECTIVE DATA Vital Signs: Vital Signs - 24 hr Temp Pulse Resp BP Pulse Ox 07/19/19 08:00 108 H 07/19/19 06:47 98 H 18 100 07/19/19 04:00 97.5 F 99 H 12 145/93 99 07/18/19 23:47 97.0 F 100 H 12 143/82 97 07/18/19 19:38 102 H 10 L 95 07/18/19 19:29 98.8 F 108 H 16 140/66 95 07/18/19 16:00 98 F 105 H 20 154/72 97 07/18/19 11:34 97.9 F 107 H 16 159/75 95 Oxygen-Last 24 hours O2 Percentage 2 Liters = 28% O2 Percentage 2 Liters = 28% Pain Assessment - Last Documented Pain Intensity 0 Pain Scale Used 0-10 Pain Scale Intake and Output: Intake & Output 07/17/19 07/18/19 07/19/19 07/20/19 06:59 06:59 06:59 06:59 Intake Total 458 2081 1435 Output Total 500 1600 2970 Balance -42 651 -6752 Weight 67.1 kg 64 kg 65.2 kg Lab Results: Accuchecks Date 07/18/19 Date 07/18/19 Time 16:30 Time 11:30 Accucheck Value: 274 Accucheck Value: 407 Accucheck Value: 334 Lab Results-Last 24 Hours 07/17/19 07/18/19 07/18/19 Range/Units 12:04 12:18 12:18 WBC (4.0-10.5) K/mm3 RBC (4.1-5.4) M/mm3 Hgb (12.0-16.0) gm/dl Hct (35-47) % MCV (78-100) fl MCH (26-32) pg MCHC (32-36) g/dl RDW (11.5-14.0) % Plt Count (150-450) K/mm3 MPV (6-9.5) fl Gran % (36.0-66.0) % Eos # (Auto) (0-0.5) Absolute Lymphs (auto) (1.0-4.6) Absolute Monos (auto) (0.0-1.3) Lymphocytes % (24.0-44.0) % Monocytes % (0.0-12.0) % Eosinophils % (0.00-5.0) % Basophils % (0.0-0.4) % Absolute Granulocytes (1.4-6.9) Basophils # (0-0.4) Puncture Site pCO2 (35-45) mmHg pO2 (75-100) mmHg Base Excess (-2.0-2.0) O2 Saturation (94-100) g/dF ABG pH (7.35-7.45) ABG HCO3 (22-28) ABG O2 Sat (Measured) (95-100) % Eds Test A-a Gradient a/A Ratio Hemoglobin Carboxyhemoglobin (0.0-6.9) % THgb Methemoglobin (1.4-1.5) % Potassium (3.5-5.1) Temperature C POC O2 Flow Rate % Sodium (137-145) mmol/L Chloride (98-107) mmol/L Carbon Dioxide (22-30) mmol/L Anion Gap (5-15) MEQ/L BUN (7-17) mg/dL Creatinine (0.52-1.04) mg/dL Estimated GFR ML/MIN Glucose (74-106) mg/dL Lactic Acid (0.4-2.0) Calcium (8.4-10.2) mg/dL Magnesium (1.6-2.3) mg/dL Total Bilirubin (0.2-1.3) mg/dL AST (14-36) U/L ALT (0-35) U/L Alkaline Phosphatase (38-126) U/L Ammonia (9-30) umol/L Serum Total Protein (6.3-8.2) g/dL Albumin (3.5-5.0) g/dL Urine Color (YELLOW) Urine Appearance (CLEAR) Urine pH (5-6) Ur Specific [place] (1.005-1.025) Urine Protein (Negative) Urine Ketones (NEGATIVE) Urine Blood (0-5) Ubaldo/ul Urine Nitrite (NEGATIVE) Urine Bilirubin (NEGATIVE) Urine Urobilinogen (0-1) mg/dL Ur Leukocyte Esterase (NEGATIVE) Urine WBC (Auto) (0-5) /HPF Urine RBC (Auto) (0-2) /HPF U Epithel Cells (Auto) (FEW) /HPF Urine Bacteria (Auto) (NEGATIVE) /HPF Urine Culture Reflexed (NO) Urine Osmolality 301 mOsm/kg Urine Sodium 86 (30-90) mmol/L Urine Glucose (NEGATIVE) mg/dL Fluid Differential SEE SEPARATE REPORT Fluid Tot Cell Count SEE SEPARATE REPORT Fluid Glucose SEE SEPARATE REPORT Fluid Total Protein SEE SEPARATE REPORT Fluid LDH SEE SEPARATE REPORT Urine Opiates Level (NEGATIVE) Ur Methadone (NEGATIVE) Urine Barbiturates (NEGATIVE) Ur Phencyclidine (PCP) (NEGATIVE) Urine Amphetamine (NEGATIVE) U Benzodiazepine Level (NEGATIVE) Urine Cocaine (NEGATIVE) Urine Marijuana (THC) (NEGATIVE) 07/18/19 07/18/19 07/18/19 Range/Units 19:58 20:26 20:26 WBC 11.2 H (4.0-10.5) K/mm3 RBC 3.83 L (4.1-5.4) M/mm3 Hgb 9.9 L (12.0-16.0) gm/dl Hct 30.6 L (35-47) % MCV 79.9 (78-100) fl MCH 25.8 L (26-32) pg MCHC 32.4 (32-36) g/dl RDW 14.9 H (11.5-14.0) % Plt Count 210 (150-450) K/mm3 MPV 8.9 (6-9.5) fl Gran % (36.0-66.0) % Eos # (Auto) (0-0.5) Absolute Lymphs (auto) (1.0-4.6) Absolute Monos (auto) (0.0-1.3) Lymphocytes % (24.0-44.0) % Monocytes % (0.0-12.0) % Eosinophils % (0.00-5.0) % Basophils % (0.0-0.4) % Absolute Granulocytes (1.4-6.9) Basophils # (0-0.4) Puncture Site RIGHT RADIAL pCO2 45 (35-45) mmHg pO2 175 H* (75-100) mmHg Base Excess 0.5 (-2.0-2.0) O2 Saturation 96.3 (94-100) g/dF ABG pH 7.37 (7.35-7.45) ABG HCO3 26.0 (22-28) ABG O2 Sat (Measured) 99.6 (95-100) % Des Test YES A-a Gradient 54 a/A Ratio 0.76 Hemoglobin 10.1 Carboxyhemoglobin 2.2 (0.0-6.9) % THgb Methemoglobin 1.1 L (1.4-1.5) % Potassium 4.5 4.7 (3.5-5.1) Temperature 37.0 C POC O2 Flow Rate 40 % Sodium 129 L (137-145) mmol/L Chloride 93 L (98-107) mmol/L Carbon Dioxide 25 (22-30) mmol/L Anion Gap 15.6 H (5-15) MEQ/L BUN 16 (7-17) mg/dL Creatinine 1.11 H (0.52-1.04) mg/dL Estimated GFR 54.9 ML/MIN Glucose 280 H (74-106) mg/dL Lactic Acid (0.4-2.0) Calcium 8.4 (8.4-10.2) mg/dL Magnesium (1.6-2.3) mg/dL Total Bilirubin 0.30 (0.2-1.3) mg/dL AST 18 (14-36) U/L ALT 12 (0-35) U/L Alkaline Phosphatase 127 H (38-126) U/L Ammonia (9-30) umol/L Serum Total Protein 7.0 (6.3-8.2) g/dL Albumin 3.0 L (3.5-5.0) g/dL Urine Color (YELLOW) Urine Appearance (CLEAR) Urine pH (5-6) Ur Specific [place] (1.005-1.025) Urine Protein (Negative) Urine Ketones (NEGATIVE) Urine Blood (0-5) Ubaldo/ul Urine Nitrite (NEGATIVE) Urine Bilirubin (NEGATIVE) Urine Urobilinogen (0-1) mg/dL Ur Leukocyte Esterase (NEGATIVE) Urine WBC (Auto) (0-5) /HPF Urine RBC (Auto) (0-2) /HPF U Epithel Cells (Auto) (FEW) /HPF Urine Bacteria (Auto) (NEGATIVE) /HPF Urine Culture Reflexed (NO) Urine Osmolality mOsm/kg Urine Sodium (30-90) mmol/L Urine Glucose (NEGATIVE) mg/dL Fluid Differential Fluid Tot Cell Count Fluid Glucose Fluid Total Protein Fluid LDH Urine Opiates Level (NEGATIVE) Ur Methadone (NEGATIVE) Urine Barbiturates (NEGATIVE) Ur Phencyclidine (PCP) (NEGATIVE) Urine Amphetamine (NEGATIVE) U Benzodiazepine Level (NEGATIVE) Urine Cocaine (NEGATIVE) Urine Marijuana (THC) (NEGATIVE) 07/18/19 07/18/19 07/18/19 Range/Units 20:27 20:33 21:02 WBC (4.0-10.5) K/mm3 RBC (4.1-5.4) M/mm3 Hgb (12.0-16.0) gm/dl Hct (35-47) % MCV (78-100) fl MCH (26-32) pg MCHC (32-36) g/dl RDW (11.5-14.0) % Plt Count (150-450) K/mm3 MPV (6-9.5) fl Gran % (36.0-66.0) % Eos # (Auto) (0-0.5) Absolute Lymphs (auto) (1.0-4.6) Absolute Monos (auto) (0.0-1.3) Lymphocytes % (24.0-44.0) % Monocytes % (0.0-12.0) % Eosinophils % (0.00-5.0) % Basophils % (0.0-0.4) % Absolute Granulocytes (1.4-6.9) Basophils # (0-0.4) Puncture Site pCO2 (35-45) mmHg pO2 (75-100) mmHg Base Excess (-2.0-2.0) O2 Saturation (94-100) g/dF ABG pH (7.35-7.45) ABG HCO3 (22-28) ABG O2 Sat (Measured) (95-100) % Des Test A-a Gradient a/A Ratio Hemoglobin Carboxyhemoglobin (0.0-6.9) % THgb Methemoglobin (1.4-1.5) % Potassium (3.5-5.1) Temperature C POC O2 Flow Rate % Sodium (137-145) mmol/L Chloride (98-107) mmol/L Carbon Dioxide (22-30) mmol/L Anion Gap (5-15) MEQ/L BUN (7-17) mg/dL Creatinine (0.52-1.04) mg/dL Estimated GFR ML/MIN Glucose (74-106) mg/dL Lactic Acid (0.4-2.0) Calcium (8.4-10.2) mg/dL Magnesium 1.4 L (1.6-2.3) mg/dL Total Bilirubin (0.2-1.3) mg/dL AST (14-36) U/L ALT (0-35) U/L Alkaline Phosphatase (38-126) U/L Ammonia (9-30) umol/L Serum Total Protein (6.3-8.2) g/dL Albumin (3.5-5.0) g/dL Urine Color STRAW (YELLOW) Urine Appearance CLEAR (CLEAR) Urine pH 6.0 (5-6) Ur Specific [place] 1.006 (1.005-1.025) Urine Protein 100 (Negative) Urine Ketones NEGATIVE (NEGATIVE) Urine Blood NEGATIVE (0-5) Ubaldo/ul Urine Nitrite NEGATIVE (NEGATIVE) Urine Bilirubin NEGATIVE (NEGATIVE) Urine Urobilinogen NEGATIVE (0-1) mg/dL Ur Leukocyte Esterase TRACE (NEGATIVE) Urine WBC (Auto) 6-10 (0-5) /HPF Urine RBC (Auto) NONE (0-2) /HPF U Epithel Cells (Auto) NONE (FEW) /HPF Urine Bacteria (Auto) NONE (NEGATIVE) /HPF Urine Culture Reflexed ORDERED SEPARATELY (NO) Urine Osmolality mOsm/kg Urine Sodium (30-90) mmol/L Urine Glucose 150 (NEGATIVE) mg/dL Fluid Differential Fluid Tot Cell Count Fluid Glucose Fluid Total Protein Fluid LDH Urine Opiates Level NEGATIVE (NEGATIVE) Ur Methadone NEGATIVE (NEGATIVE) Urine Barbiturates NEGATIVE (NEGATIVE) Ur Phencyclidine (PCP) NEGATIVE (NEGATIVE) Urine Amphetamine NEGATIVE (NEGATIVE) U Benzodiazepine Level NEGATIVE (NEGATIVE) Urine Cocaine NEGATIVE (NEGATIVE) Urine Marijuana (THC) NEGATIVE (NEGATIVE) 07/18/19 07/18/19 07/19/19 Range/Units 22:05 Unknown 04:32 WBC 7.5 (4.0-10.5) K/mm3 RBC 3.58 L (4.1-5.4) M/mm3 Hgb 9.3 L (12.0-16.0) gm/dl Hct 28.9 L (35-47) % MCV 80.7 (78-100) fl MCH 25.9 L (26-32) pg MCHC 32.2 (32-36) g/dl RDW 14.9 H (11.5-14.0) % Plt Count 156 (150-450) K/mm3 MPV 9.0 (6-9.5) fl Gran % 89.1 H (36.0-66.0) % Eos # (Auto) 0 (0-0.5) Absolute Lymphs (auto) 0.64 L (1.0-4.6) Absolute Monos (auto) 0.18 (0.0-1.3) Lymphocytes % 8.5 L (24.0-44.0) % Monocytes % 2.4 (0.0-12.0) % Eosinophils % 0.0 (0.00-5.0) % Basophils % 0.0 (0.0-0.4) % Absolute Granulocytes 6.67 (1.4-6.9) Basophils # 0 (0-0.4) Puncture Site pCO2 (35-45) mmHg pO2 (75-100) mmHg Base Excess (-2.0-2.0) O2 Saturation (94-100) g/dF ABG pH (7.35-7.45) ABG HCO3 (22-28) ABG O2 Sat (Measured) (95-100) % Des Test A-a Gradient a/A Ratio Hemoglobin Carboxyhemoglobin (0.0-6.9) % THgb Methemoglobin (1.4-1.5) % Potassium (3.5-5.1) Temperature C POC O2 Flow Rate % Sodium (137-145) mmol/L Chloride (98-107) mmol/L Carbon Dioxide (22-30) mmol/L Anion Gap (5-15) MEQ/L BUN (7-17) mg/dL Creatinine (0.52-1.04) mg/dL Estimated GFR ML/MIN Glucose (74-106) mg/dL Lactic Acid 1.5 (0.4-2.0) Calcium (8.4-10.2) mg/dL Magnesium (1.6-2.3) mg/dL Total Bilirubin (0.2-1.3) mg/dL AST (14-36) U/L ALT (0-35) U/L Alkaline Phosphatase (38-126) U/L Ammonia 14 (9-30) umol/L Serum Total Protein (6.3-8.2) g/dL Albumin (3.5-5.0) g/dL Urine Color (YELLOW) Urine Appearance (CLEAR) Urine pH (5-6) Ur Specific [place] (1.005-1.025) Urine Protein (Negative) Urine Ketones (NEGATIVE) Urine Blood (0-5) Ubaldo/ul Urine Nitrite (NEGATIVE) Urine Bilirubin (NEGATIVE) Urine Urobilinogen (0-1) mg/dL Ur Leukocyte Esterase (NEGATIVE) Urine WBC (Auto) (0-5) /HPF Urine RBC (Auto) (0-2) /HPF U Epithel Cells (Auto) (FEW) /HPF Urine Bacteria (Auto) (NEGATIVE) /HPF Urine Culture Reflexed (NO) Urine Osmolality mOsm/kg Urine Sodium (30-90) mmol/L Urine Glucose (NEGATIVE) mg/dL Fluid Differential Fluid Tot Cell Count Fluid Glucose Fluid Total Protein Fluid LDH Urine Opiates Level (NEGATIVE) Ur Methadone (NEGATIVE) Urine Barbiturates (NEGATIVE) Ur Phencyclidine (PCP) (NEGATIVE) Urine Amphetamine (NEGATIVE) U Benzodiazepine Level (NEGATIVE) Urine Cocaine (NEGATIVE) Urine Marijuana (THC) (NEGATIVE) 07/19/19 Range/Units 04:32 WBC (4.0-10.5) K/mm3 RBC (4.1-5.4) M/mm3 Hgb (12.0-16.0) gm/dl Hct (35-47) % MCV (78-100) fl MCH (26-32) pg MCHC (32-36) g/dl RDW (11.5-14.0) % Plt Count (150-450) K/mm3 MPV (6-9.5) fl Gran % (36.0-66.0) % Eos # (Auto) (0-0.5) Absolute Lymphs (auto) (1.0-4.6) Absolute Monos (auto) (0.0-1.3) Lymphocytes % (24.0-44.0) % Monocytes % (0.0-12.0) % Eosinophils % (0.00-5.0) % Basophils % (0.0-0.4) % Absolute Granulocytes (1.4-6.9) Basophils # (0-0.4) Puncture Site pCO2 (35-45) mmHg pO2 (75-100) mmHg Base Excess (-2.0-2.0) O2 Saturation (94-100) g/dF ABG pH (7.35-7.45) ABG HCO3 (22-28) ABG O2 Sat (Measured) (95-100) % Des Test A-a Gradient a/A Ratio Hemoglobin Carboxyhemoglobin (0.0-6.9) % THgb Methemoglobin (1.4-1.5) % Potassium 4.7 (3.5-5.1) Temperature C POC O2 Flow Rate % Sodium 128 L (137-145) mmol/L Chloride 95 L (98-107) mmol/L Carbon Dioxide 26 (22-30) mmol/L Anion Gap 11.7 (5-15) MEQ/L BUN 18 H (7-17) mg/dL Creatinine 1.15 H (0.52-1.04) mg/dL Estimated GFR 52.7 ML/MIN Glucose 215 H (74-106) mg/dL Lactic Acid (0.4-2.0) Calcium 8.2 L (8.4-10.2) mg/dL Magnesium (1.6-2.3) mg/dL Total Bilirubin 0.30 (0.2-1.3) mg/dL AST 17 (14-36) U/L ALT 9 (0-35) U/L Alkaline Phosphatase 116 (38-126) U/L Ammonia (9-30) umol/L Serum Total Protein 6.4 (6.3-8.2) g/dL Albumin 2.7 L (3.5-5.0) g/dL Urine Color (YELLOW) Urine Appearance (CLEAR) Urine pH (5-6) Ur Specific [place] (1.005-1.025) Urine Protein (Negative) Urine Ketones (NEGATIVE) Urine Blood (0-5) Ubaldo/ul Urine Nitrite (NEGATIVE) Urine Bilirubin (NEGATIVE) Urine Urobilinogen (0-1) mg/dL Ur Leukocyte Esterase (NEGATIVE) Urine WBC (Auto) (0-5) /HPF Urine RBC (Auto) (0-2) /HPF U Epithel Cells (Auto) (FEW) /HPF Urine Bacteria (Auto) (NEGATIVE) /HPF Urine Culture Reflexed (NO) Urine Osmolality mOsm/kg Urine Sodium (30-90) mmol/L Urine Glucose (NEGATIVE) mg/dL Fluid Differential Fluid Tot Cell Count Fluid Glucose Fluid Total Protein Fluid LDH Urine Opiates Level (NEGATIVE) Ur Methadone (NEGATIVE) Urine Barbiturates (NEGATIVE) Ur Phencyclidine (PCP) (NEGATIVE) Urine Amphetamine (NEGATIVE) U Benzodiazepine Level (NEGATIVE) Urine Cocaine (NEGATIVE) Urine Marijuana (THC) (NEGATIVE) Radiology Exams: Radiology Procedures Category Date Time Status ABDOMINAL PARACENTESIS [US] Routine Exams 07/17/19 09:00 Completed CHEST 1 VIEW (PORTABLE) Stat Exams 07/18/19 20:53 Taken Multi-Disciplinary Progress Notes: Multi-Disciplinary Progress Notes 07/18/19 20:53 Respiratory Note by Liliana,Chan CAME IN TO PT SLEEPING AND HER DINNER/FOOD AND DRINK WERE SPILLED IN HER LAP. SHE WOULD WAKE TO ANSWER QUESTIONS BUT QUICKLY FALL ASLEEP AFTER. I PLACED TX AND I STARTED CHECKING VITALS. I CALLED PT NURSE IN TO VERIFY IF SHE HAD RECENTLY BEEN GIVEN PAIN MEDS. SHE HAD NOT. AFTER NURSING AND I ASSESSED I ROSE MARIE AN ABG, THEY CHECKED SUGAR, VITALS AGAIN, AND DID AN EKG. NOTHING WAS TERRIBLY ALARMING OTHER THAN PT LOC AND RR. WE CALLED A CODE RAPID AND DR. HULL REQUESTED I PLACE PT ON A BIPAP. Initialized on 07/18/19 20:53 - END OF NOTE 07/18/19 14:12 Case Management Note by Brittni Davidson CALL TO [facility] [phone], SPOKE WITH ANTHONY, REPORTED THAT PT IS INPT STATUS, AND WILL NOTIFY ON DISCHARGE. Initialized on 07/18/19 14:12 - END OF NOTE 07/18/19 10:00 (created 07/18/19 14:13) Case Management Note by Brittni Davidson PLANS TO RETURN HOME TO PRE EPISODIC LEVEL OF [facility], PLANS FOR [facility] TO RESUME SERVICES. DENIES ADDNL NEEDS FOR DISCHARGE. Initialized on 07/18/19 14:13 - END OF NOTE Assessment/Plan (1) Opioid overdose Current Visit: Yes Status: Acute Assessment & Plan: Discussed with patient that I would not recommend for her to take nucynta or opioids at home when she is discharged due to the overdose that she experienced here in the hospital where it seems she took some medication (opioids) that she had in her purse. I also told her that I wanted her to have narcan at home and would write this script and that her family needs to know about the narcan and how to use it. She states she will talk to her brother whom she lives with. She states she takes the pain medication for her legs and foot. I had had her home pain medication ordered here in the hospital but it was not being given as we did not have it available and I have discontinued these orders now. Code(s): T40.2X1A - POISONING BY OTH OPIOIDS, ACCIDENTAL (UNINTENTIONAL), INIT (2) COPD with exacerbation Current Visit: Yes Status: Acute Assessment & Plan: IV steroids were weaned yesterday. Continue IV antibiotics. Clinically she is improving but was put on oxygen last night during rapid response. Dr. Galan has been following. Off Bipap now. Code(s): J44.1 - CHRONIC OBSTRUCTIVE PULMONARY DISEASE W (ACUTE) EXACERBATION (3) Cirrhosis of liver with ascites Current Visit: Yes Status: Acute Assessment & Plan: Continue to see Dr. Valencia as outpatient. S/p paracentesis here in hospital and fluid looked to be uncomplicated ascities. Code(s): K74.60 - UNSPECIFIED CIRRHOSIS OF LIVER; R18.8 - OTHER ASCITES (4) Diabetes mellitus type 2, uncontrolled Current Visit: No Status: Acute Assessment & Plan: Continue lantus and sliding scale. Code(s): E11.65 - TYPE 2 DIABETES MELLITUS WITH HYPERGLYCEMIA (5) UTI (urinary tract infection) Current Visit: No Status: Acute Assessment & Plan: On ceftriaxone. Had positive culture from ER visit last Monday. Code(s): N39.0 - URINARY TRACT INFECTION, SITE NOT SPECIFIED (6) Nausea Current Visit: Yes Status: Acute Assessment & Plan: Improved today and patient is eating breakfast well. Code(s): R11.0 - NAUSEA (7) Hyponatremia Current Visit: No Status: Acute Assessment & Plan: Nephrology consulted. Stable. Code(s): E87.1 - HYPO-OSMOLALITY AND HYPONATREMIA (8) Tobacco abuse Current Visit: Yes Status: Acute Code(s): Z72.0 - TOBACCO USE (9) Chronic pain Current Visit: Yes Status: Acute Assessment & Plan: Patient will need to follow closely with Dr. New. Code(s): G89.29 - OTHER CHRONIC PAIN
--- NOTE | 2019-07-19 08:47 | XRAY ---
Indication: Low respiration and low oxygenation. Comparison: July 16, 2019. Portable chest unchanged again demonstrating diffuse interstitial alveolar opacities, right greater than left. Heart and mediastinal structures within normal limits. No new cardiopulmonary abnormalities.
[2019-07-19] MEDS: NORVASC 5 MG PO SCH (09:06)
[2019-07-19] MEDS: ATARAX 25 MG PO SCH ×2 (09:06→20:43)
[2019-07-19] MEDS: SYNTHROID 25 MCG PO SCH (09:06)
[2019-07-19] MEDS: NEURONTIN 300 MG PO SCH ×3 (09:06→20:43)
[2019-07-19] MEDS: FEOSOL 325 MG PO SCH ×2 (09:06→20:43)
[2019-07-19] MEDS: BUMEX 1 MG PO SCH (09:07)
[2019-07-19] MEDS: ROCEPHIN 1 Gm-D5w 50 ml Bag** 1 G/50 ML IVPB IV SCH (09:07)
[2019-07-19] MEDS: PROTONIX 40 MG IV IV SCH (09:07)
[2019-07-19] MEDS: Zestril 5 MG PO SCH (09:07)
[2019-07-19] MEDS: Zithromax 500 MG/ 250 ML NaCl Premix 500 MG/250 ML IVPB IV SCH (09:58)
[2019-07-19] MEDS ORDERED: FLUZONE QUAD 2019-2020 SYRINGE IM ONE (10:00)
[2019-07-19] MEDS ORDERED: Sodium Chloride 0.9% 10 ML FLUSH Syringe IV PRN (14:00)
--- NOTE | 2019-07-19 14:27 | CONS ---
CONSULT DATE: 07/19/2019 REASON FOR CONSULT: Hyponatremia, chronic kidney disease. HISTORY: The patient is a 54 year-old female who follows with Dr. Thrasher in the office for chronic kidney disease stage III, thought to be related hypertensive nephropathy. The patient apparently started having cough and vomiting a few days ago. She went to the emergency room last Monday and diagnosed with urinary tract infection and was given levofloxacin which was changed to Keflex at home. She had a CT abdomen and pelvis in the emergency room which showed cirrhosis of the liver, marked ascites, splenomegaly. She also had x-ray done that showed bibasilar interstitial alveolar opacities. She had not been feeling better. She was admitted for management. The patient had episode of confusion last night. She had initial sodium 131 which dropped down to 128 with fluids. She denies any active vomiting or diarrhea. REVIEW OF SYSTEMS: Complains of generalized weakness. Denies any active vomiting, diarrhea, fever or chest pain. Vague abdominal discomfort. All other systems were reviewed negative except as listed above. PAST MEDICAL HISTORY: Diabetes mellitus type 2. Hypertension. Chronic kidney disease stage III. Chronic obstructive pulmonary disease. Chronic tobacco abuse. Cirrhosis of the liver of unclear etiology. Splenomegaly. Hypertension. Anemia. Edema. PAST SURGICAL HISTORY: Amputation of left leg below knee. section x2. Cholecystectomy. Hysterectomy. Tonsillectomy. Left foot surgery. MEDICATIONS: Home medicines and medicine in the hospital reviewed per the medication reconciliation sheet. ALLERGIES: ADHESIVE TAPE. SOCIAL HISTORY: She smokes cigarettes every day. Denies any alcohol or illicit substance abuse. She currently lives with her brother. FAMILY HISTORY: Denies any history of kidney disease in the family. PHYSICAL EXAMINATION: The patient is awake, alert and oriented. No acute distress. VITAL SIGNS: Temperature 98.4, pulse rate 108, respiratory rate 18, blood pressure 151/72. Oxygen saturation 94% on room air. HEENT: Head - Atraumatic, normocephalic. Eyes - Nonicteric. No pallor. ENT: Mucosa moist. NECK: No JVD. CHEST: Occasional rhonchi, occasional wheeze. No rales. No respiratory distress. CVS: Appears regular. No peripheral edema. ABDOMEN: Soft, nontender. Positive bowel sounds. No organomegaly. EXTREMITIES: Left below knee amputation. Right no edema. NEURO: Awake, alert, oriented. Following commands. PSYCH: Appropriate mood and affect. SKIN: Warm and dry. LAB DATA AND TESTS: Hemoglobin 9.3. BUN 18, creatinine 1.15. Glomerular filtration rate 52. Sodium 138, potassium 4.7. Ammonia 14. Glucose 215. Her CT scan showed ascites, splenomegaly, cirrhosis of liver. She had paracentesis. Ultrasound and CT scan and imaging tests over the last few days have been reviewed. ASSESSMENT AND PLAN: 1) Hyponatremia. Likely secondary to cirrhosis, volume overload, increased ADH secondary to chronic obstructive pulmonary disease, diuretics and poor osmolar intake. Given her cirrhosis she is not a very good candidate for SAMSCA. I recommend Jynarque 15 gm p.o. b.i.d. and I will monitor her sodium level closely. 2) Chronic kidney disease stage III. Secondary to diabetes mellitus type 2, hypertension, nephropathy and possible contribution from chronic renal syndrome. Renal functions still low moderate. Monitor renal functions and electrolytes closely. I recommend avoiding nephrotoxins. 3) Ascites. I recommend continuing her diuretics Lasix, Bumex. 4) Anemia. Likely secondary to acute and chronic medical problems and possibly iron deficiency, get B12, folic acid. Monitor hemoglobin closely. 5) Hypertension. Continue to monitor it. Management per primary team. 6) Cirrhosis of the liver. Unclear etiology. Further management per GI. 7) Urinary tract infection. Continue present management. I agree with ceftriaxone. Thank you for the consultation on this patient. Please do not hesitate to contact me for any questions.
[2019-07-19] MEDS: NovoLOG Insulin SQ SCH (17:16)
[2019-07-19] MEDS: NON-FORMULARY ITEM PO SCH (17:17)
[2019-07-19] MEDS: Zocor 10MG PO SCH (20:43)
[2019-07-19] MEDS: Cymbalta 30 MG Capsule PO SCH (20:43)
[2019-07-19] MEDS: Colace 100 MG PO SCH (20:43)
[2019-07-20 05:49] LABS: Absolute Neutrophil Ct (ANC) 6.05 (1.4-6.9); Basophil (Absolute #) 0 (0-0.4); Eosinophil (Absolute #) 0 (0-0.5); Hematocrit 27.8 % (35-47); Hemoglobin 9.1 gm/dl (12.0-16.0); Lymphocytes % 11.1 % (24.0-44.0); Mean Cell Volume 78.8 fl (78-100); Mean Corpuscular Hgb Concent. 32.7 g/dl (32-36); Monocyte (Absolute #) 0.36 (0.0-1.3); Neutrophil % 83.9 % (36.0-66.0); Platelet Count 150 K/mm3 (150-450); Red Blood Count 3.53 M/mm3 (4.1-5.4); Red Cell Distribution Width 14.6 % (11.5-14.0); White Blood Count 7.2 K/mm3 (4.0-10.5)
[2019-07-20 05:53] LABS: Mean Corpuscular Hemoglobin 25.7 pg (26-32)
[2019-07-20 06:05] LABS: ALBUMIN 2.6 g/dL (3.5-5.0); ANION GAP 11.8 MEQ/L (5-15); BILIRUBIN,TOTAL 0.3 mg/dL (0.2-1.3); Creatinine 1 1.1 mg/dL (0.52-1.04); Potassium 4.5 mmol/L (3.5-5.1); Total Protein 6.2 g/dL (6.3-8.2)
[2019-07-20 06:12] LABS: Iron 35 ug/dL (37-170); Iron Saturation 16 % (20-39); TIBC 221 ug/dL (265-462)
[2019-07-20] MEDS: Sodium Chloride 0.9% 10 ML FLUSH Syringe IV SCH ×6 (06:30→23:03)
[2019-07-20] MEDS: Mucomyst 200 MG/ML IH SCH ×2 (06:41→19:14)
[2019-07-20] MEDS: Advair Hfa 230/21 Mcg COMMON CANISTER IH SCH ×2 (06:41→19:12)
[2019-07-20] MEDS: PROVENTIL 2.5 MG/3 ML NEB IH SCH ×2 (06:41→19:11)
[2019-07-20 07:10] LABS: Ferritin 37.6 ng/mL (11.1-264); Folate (Folic Acid) 3.09 ng/mL (2.76 - >20); MAGNESIUM 1.3 mg/dL (1.6-2.3)
[2019-07-20] MEDS: NovoLOG Insulin SQ SCH ×3 (07:57→17:32)
[2019-07-20] MEDS: NON-FORMULARY ITEM PO SCH ×2 (07:57→18:25)
[2019-07-20] MEDS: Lantus Insulin SQ SCH (07:59)
[2019-07-20] MEDS: MOTRIN 600 MG PO PRN ×2 (09:58→20:54)
[2019-07-20] MEDS: Zithromax 500 MG/ 250 ML NaCl Premix 500 MG/250 ML IVPB IV SCH (09:59)
[2019-07-20] MEDS: solu-MEDROL 125 MG IV SCH (09:59)
[2019-07-20] MEDS: PROTONIX 40 MG IV IV SCH (09:59)
[2019-07-20] MEDS: ROCEPHIN 1 Gm-D5w 50 ml Bag** 1 G/50 ML IVPB IV SCH (09:59)
[2019-07-20] MEDS: SYNTHROID 25 MCG PO SCH (10:00)
[2019-07-20] MEDS: NORVASC 5 MG PO SCH (10:00)
[2019-07-20] MEDS: BUMEX 1 MG PO SCH (10:00)
[2019-07-20] MEDS: NEURONTIN 300 MG PO SCH ×3 (10:00→22:09)
[2019-07-20] MEDS: FEOSOL 325 MG PO SCH ×2 (10:00→22:09)
[2019-07-20] MEDS: Zestril 5 MG PO SCH (10:00)
[2019-07-20] MEDS: ATARAX 25 MG PO SCH ×2 (10:01→22:08)
[2019-07-20] MEDS: NovoLOG Insulin SQ PRN ×2 (11:54→17:32)
--- NOTE | 2019-07-20 15:18 | PCM.NOTE ---
Date and Time: 07/20/19 1513 - Review of Systems Constitutional: Lethargy Respiratory: Short Of Breath (better ) Abdominal/Gastrointestinal: Other (a little improvement in appetite) Objective Exam General Appearance: other (appears fatigued) Skin Exam: warm, dry, pale Respiratory Exam: wheezing (bilateral mid) Cardiovascular Exam: other (regular ,rate 90) Gastrointestinal/Abdomen Exam: soft (nontender) Extremity Exam: other (no pitting edema) OBJECTIVE DATA Vital Signs: Vital Signs - 24 hr Temp Pulse Resp BP Pulse Ox 07/20/19 11:13 68 20 125/62 96 07/20/19 07:16 97.7 F 80 20 138/75 96 07/20/19 06:46 103 H 16 98 07/20/19 03:48 100 H 07/20/19 03:45 98.0 F 99 H 21 168/93 97 07/20/19 00:00 97.8 F 99 H 26 H 140/71 100 07/19/19 19:52 98.0 F 106 H 19 135/85 100 07/19/19 19:45 103 H 07/19/19 19:44 104 H 18 98 07/19/19 16:00 98.5 F 105 H 22 124/73 98 Oxygen-Last 24 hours O2 Percentage 2 Liters = 28% Pain Assessment - Last Documented Pain Intensity 0 Pain Scale Used 0-10 Pain Scale Intake and Output: Intake & Output 07/18/19 07/19/19 07/20/19 07/21/19 11:59 11:59 11:59 11:59 Intake Total 2081 1435 2920 240 Output Total 2950 1620 3150 750 Balance -869 -185 -230 -510 Weight 64 kg 65.2 kg 65.4 kg Lab Results: Accuchecks Date 07/20/19 Date 07/20/19 Date 07/19/19 Time 11:30 Time 07:30 Time 03:50 Accucheck Value: 279 Accucheck Value: 168 Accucheck Value: 405 Lab Results-Last 24 Hours 07/20/19 07/20/19 07/20/19 Range/Units 05:43 05:43 05:43 WBC 7.2 (4.0-10.5) K/mm3 RBC 3.53 L (4.1-5.4) M/mm3 Hgb 9.1 L (12.0-16.0) gm/dl Hct 27.8 L (35-47) % MCV 78.8 (78-100) fl MCH 25.7 L (26-32) pg MCHC 32.7 (32-36) g/dl RDW 14.6 H (11.5-14.0) % Plt Count 150 (150-450) K/mm3 MPV 9.0 (6-9.5) fl Gran % 83.9 H (36.0-66.0) % Eos # (Auto) 0 (0-0.5) Absolute Lymphs (auto) 0.80 L (1.0-4.6) Absolute Monos (auto) 0.36 (0.0-1.3) Lymphocytes % 11.1 L (24.0-44.0) % Monocytes % 5.0 (0.0-12.0) % Eosinophils % 0.0 (0.00-5.0) % Basophils % 0.0 (0.0-0.4) % Absolute Granulocytes 6.05 (1.4-6.9) Basophils # 0 (0-0.4) Sodium 124 L (137-145) mmol/L Potassium 4.5 (3.5-5.1) mmol/L Chloride 91 L (98-107) mmol/L Carbon Dioxide 26 (22-30) mmol/L Anion Gap 11.8 (5-15) MEQ/L BUN 32 H (7-17) mg/dL Creatinine 1.10 H (0.52-1.04) mg/dL Estimated GFR 55.4 ML/MIN Glucose 327 H (74-106) mg/dL Calcium 8.0 L (8.4-10.2) mg/dL Magnesium 1.3 L (1.6-2.3) mg/dL Iron (37-170) ug/dL TIBC (265-462) ug/dL Iron Saturation (20-39) % Ferritin 37.6 (11.1-264) ng/mL Total Bilirubin 0.30 (0.2-1.3) mg/dL AST 20 (14-36) U/L ALT 13 (0-35) U/L Alkaline Phosphatase 100 (38-126) U/L Serum Total Protein 6.2 L (6.3-8.2) g/dL Albumin 2.6 L (3.5-5.0) g/dL Vitamin B12 884 (239-931) pg/mL Folic Acid 3.09 (2.76 - >20) ng/mL 07/20/19 Range/Units 05:43 WBC (4.0-10.5) K/mm3 RBC (4.1-5.4) M/mm3 Hgb (12.0-16.0) gm/dl Hct (35-47) % MCV (78-100) fl MCH (26-32) pg MCHC (32-36) g/dl RDW (11.5-14.0) % Plt Count (150-450) K/mm3 MPV (6-9.5) fl Gran % (36.0-66.0) % Eos # (Auto) (0-0.5) Absolute Lymphs (auto) (1.0-4.6) Absolute Monos (auto) (0.0-1.3) Lymphocytes % (24.0-44.0) % Monocytes % (0.0-12.0) % Eosinophils % (0.00-5.0) % Basophils % (0.0-0.4) % Absolute Granulocytes (1.4-6.9) Basophils # (0-0.4) Sodium (137-145) mmol/L Potassium (3.5-5.1) mmol/L Chloride (98-107) mmol/L Carbon Dioxide (22-30) mmol/L Anion Gap (5-15) MEQ/L BUN (7-17) mg/dL Creatinine (0.52-1.04) mg/dL Estimated GFR ML/MIN Glucose (74-106) mg/dL Calcium (8.4-10.2) mg/dL Magnesium (1.6-2.3) mg/dL Iron 35 L (37-170) ug/dL TIBC 221 L (265-462) ug/dL Iron Saturation 16 L (20-39) % Ferritin (11.1-264) ng/mL Total Bilirubin (0.2-1.3) mg/dL AST (14-36) U/L ALT (0-35) U/L Alkaline Phosphatase (38-126) U/L Serum Total Protein (6.3-8.2) g/dL Albumin (3.5-5.0) g/dL Vitamin B12 (239-931) pg/mL Folic Acid (2.76 - >20) ng/mL Radiology Exams: Radiology Procedures Category Date Time Status CHEST 1 VIEW (PORTABLE) Stat Exams 07/18/19 20:53 Completed Assessment/Plan (1) Hyponatremia Current Visit: No Status: Acute Assessment & Plan: phone consult with Commodities Broker,Dr Thrasher who advised fluid restriction ,hold Bumex and start IV NS at 20cc/hour with caution. Code(s): E87.1 - HYPO-OSMOLALITY AND HYPONATREMIA (2) Opioid overdose Current Visit: Yes Status: Acute Assessment & Plan: responded to Narcan ,stable to transfer back to med/surg bed. Code(s): T40.2X1A - POISONING BY OTH OPIOIDS, ACCIDENTAL (UNINTENTIONAL), INIT (3) COPD with exacerbation Current Visit: Yes Status: Acute Assessment & Plan: not quite at baseline per patient but improving,reduce IV solumedrol 60mg q12h to 40mg q 12h Code(s): J44.1 - CHRONIC OBSTRUCTIVE PULMONARY DISEASE W (ACUTE) EXACERBATION
[2019-07-20] MEDS: Sodium Chloride 0.9% 1000 ML 1,000 ML IV SCH (15:53)
[2019-07-20] MEDS ORDERED: solu-MEDROL 40 MG IV SCH (22:00)
[2019-07-20] MEDS: Colace 100 MG PO SCH (22:08)
[2019-07-20] MEDS: Cymbalta 30 MG Capsule PO SCH (22:09)
[2019-07-20] MEDS: Zocor 10MG PO SCH (22:09)
[2019-07-20] MEDS: solu-MEDROL 40 MG IV SCH (23:07)
[2019-07-21 06:17] LABS: Absolute Neutrophil Ct (ANC) 6.84 (1.4-6.9); Basophil (Absolute #) 0 (0-0.4); Eosinophil % 0.1 % (0.00-5.0); Eosinophil (Absolute #) 0.01 (0-0.5); Hematocrit 30.9 % (35-47); Hemoglobin 10.1 gm/dl (12.0-16.0); Lymphocytes % 11.3 % (24.0-44.0); Mean Corpuscular Hemoglobin 25.8 pg (26-32); Mean Corpuscular Hgb Concent. 32.7 g/dl (32-36); Mean Platelet Volume 9.3 fl (6-9.5); Monocyte (Absolute #) 0.22 (0.0-1.3); Monocytes % 2.8 % (0.0-12.0); Neutrophil % 85.8 % (36.0-66.0); Platelet Count 188 K/mm3 (150-450); Red Blood Count 3.91 M/mm3 (4.1-5.4); Red Cell Distribution Width 14.9 % (11.5-14.0)
[2019-07-21 06:20] LABS: ALBUMIN 2.9 g/dL (3.5-5.0); ANION GAP 13.6 MEQ/L (5-15); BILIRUBIN,TOTAL 0.3 mg/dL (0.2-1.3); Calcium 8.4 mg/dL (8.4-10.2); Creatinine 1 1.25 mg/dL (0.52-1.04); Potassium 4.5 mmol/L (3.5-5.1); Total Protein 6.7 g/dL (6.3-8.2)
[2019-07-21] MEDS: PROVENTIL 2.5 MG/3 ML NEB IH SCH ×2 (07:08→19:27)
[2019-07-21] MEDS: Advair Hfa 230/21 Mcg COMMON CANISTER IH SCH ×2 (07:08→19:27)
[2019-07-21] MEDS: Lantus Insulin SQ SCH (08:07)
[2019-07-21] MEDS: NovoLOG Insulin SQ SCH ×3 (08:07→16:30)
[2019-07-21] MEDS: NON-FORMULARY ITEM PO SCH ×2 (08:08→18:34)
[2019-07-21] MEDS: ROCEPHIN 1 Gm-D5w 50 ml Bag** 1 G/50 ML IVPB IV SCH (09:43)
[2019-07-21] MEDS: PROTONIX 40 MG IV IV SCH (09:44)
[2019-07-21] MEDS: FEOSOL 325 MG PO SCH ×2 (09:44→21:33)
[2019-07-21] MEDS: Calcium 500MG W/Vit D Tablet PO SCH (09:44)
[2019-07-21] MEDS: NEURONTIN 300 MG PO SCH ×3 (09:44→21:33)
[2019-07-21] MEDS: Zestril 5 MG PO SCH (09:44)
[2019-07-21] MEDS: NORVASC 5 MG PO SCH (09:44)
[2019-07-21] MEDS: ATARAX 25 MG PO SCH ×2 (09:44→21:33)
[2019-07-21] MEDS: SYNTHROID 25 MCG PO SCH (09:44)
[2019-07-21] MEDS: Zithromax 500 MG/ 250 ML NaCl Premix 500 MG/250 ML IVPB IV SCH (10:21)
[2019-07-21] MEDS: solu-MEDROL 40 MG IV SCH ×2 (10:21→21:33)
[2019-07-21] MEDS: VITAMIN D2 PO SCH (10:21)
[2019-07-21] MEDS: NovoLOG Insulin SQ PRN ×3 (11:54→21:34)
[2019-07-21] MEDS: Phenergan 25 MG INJ IV PRN (13:50)
[2019-07-21] MEDS: MOTRIN 600 MG PO PRN (13:57)
[2019-07-21] MEDS: Sodium Chloride 0.9% 10 ML FLUSH Syringe IV SCH ×6 (14:00→21:33)
--- NOTE | 2019-07-21 14:16 | PCM.NOTE ---
Date and Time: 07/21/19 1415 Subjective Assessment: Patient C/O nausea after eating today and is feeling lethargic. Sugars are 300+ . Patient states she is on an insulin pump at home. 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 Objective Exam General Appearance: moderate distress (vomiting nauseated) Neurologic Exam: alert, 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, cooperative Skin Exam: warm, dry, pale Respiratory Exam: wheezing (right base) Gastrointestinal/Abdomen Exam: soft, tenderness (epigastrum), distention Extremity Exam: other (BKA no edema) OBJECTIVE DATA Vital Signs: Vital Signs - 24 hr Temp Pulse Resp BP Pulse Ox 07/21/19 12:26 97.7 F 110 H 20 135/71 97 07/21/19 07:35 97.6 F 106 H 18 161/72 95 07/21/19 07:00 110 H 18 98 07/21/19 03:44 98.3 F 100 H 17 151/88 94 L 07/20/19 23:58 97.6 F 97 H 17 131/70 96 07/20/19 20:00 98.1 F 104 H 16 125/76 98 07/20/19 19:15 104 H 16 98 07/20/19 16:26 98.2 F 90 20 139/75 97 Pain Assessment - Last Documented Pain Intensity 6 Pain Scale Used 0-10 Pain Scale Intake and Output: Intake & Output 07/19/19 07/20/19 07/21/19 07/22/19 11:59 11:59 11:59 11:59 Intake Total 1435 2920 1175 210 Output Total 1620 3150 2750 Balance -185 -230 -1575 210 Weight 65.2 kg 65.4 kg 69 kg Lab Results: Accuchecks Date 07/21/19 Date 07/21/19 Date 07/20/19 Date 07/20/19 Time 11:30 Time 07:30 Time 21:00 Time 16:30 Accucheck Value: 287 Accucheck Value: 399 Accucheck Value: 323 Accucheck Value: 316 Lab Results-Last 24 Hours 07/21/19 07/21/19 Range/Units 05:45 05:45 WBC 8.0 (4.0-10.5) K/mm3 RBC 3.91 L (4.1-5.4) M/mm3 Hgb 10.1 L (12.0-16.0) gm/dl Hct 30.9 L (35-47) % MCV 79.0 (78-100) fl MCH 25.8 L (26-32) pg MCHC 32.7 (32-36) g/dl RDW 14.9 H (11.5-14.0) % Plt Count 188 (150-450) K/mm3 MPV 9.3 (6-9.5) fl Gran % 85.8 H (36.0-66.0) % Eos # (Auto) 0.01 (0-0.5) Absolute Lymphs (auto) 0.90 L (1.0-4.6) Absolute Monos (auto) 0.22 (0.0-1.3) Lymphocytes % 11.3 L (24.0-44.0) % Monocytes % 2.8 (0.0-12.0) % Eosinophils % 0.1 (0.00-5.0) % Basophils % 0.0 (0.0-0.4) % Absolute Granulocytes 6.84 (1.4-6.9) Basophils # 0 (0-0.4) Sodium 128 L (137-145) mmol/L Potassium 4.5 (3.5-5.1) mmol/L Chloride 94 L (98-107) mmol/L Carbon Dioxide 25 (22-30) mmol/L Anion Gap 13.6 (5-15) MEQ/L BUN 55 H (7-17) mg/dL Creatinine 1.25 H (0.52-1.04) mg/dL Estimated GFR 47.8 ML/MIN Glucose 363 H (74-106) mg/dL Calcium 8.4 (8.4-10.2) mg/dL Total Bilirubin 0.30 (0.2-1.3) mg/dL AST 35 (14-36) U/L ALT 23 (0-35) U/L Alkaline Phosphatase 121 (38-126) U/L Serum Total Protein 6.7 (6.3-8.2) g/dL Albumin 2.9 L (3.5-5.0) g/dL Assessment/Plan (1) Hyponatremia Current Visit: No Status: Acute Assessment & Plan: symptomatic treated with fluid restriction ,IV NS at 20 cc/hour per [employer] Finishing Supervisor. Is not keeping food down today. Code(s): E87.1 - HYPO-OSMOLALITY AND HYPONATREMIA (2) COPD with exacerbation Current Visit: Yes Status: Acute Assessment & Plan: improving and has tolerated lower dose of steroids. Code(s): J44.1 - CHRONIC OBSTRUCTIVE PULMONARY DISEASE W (ACUTE) EXACERBATION (3) Hyperglycemia due to type 2 diabetes mellitus Current Visit: Yes Status: Acute Assessment & Plan: increased Lantus to 25 units and increased Sliding scal to moderate Code(s): E11.65 - TYPE 2 DIABETES MELLITUS WITH HYPERGLYCEMIA (4) Opioid overdose Current Visit: Yes Status: Resolved Code(s): T40.2X1A - POISONING BY OTH OPIOIDS, ACCIDENTAL (UNINTENTIONAL), INIT
[2019-07-21] MEDS ORDERED: Lantus Insulin SQ SCH (14:24)
[2019-07-21] MEDS: Sodium Chloride 0.9% 1000 ML 1,000 ML IV SCH (16:29)
[2019-07-21] MEDS: Cymbalta 30 MG Capsule PO SCH (21:33)
[2019-07-21] MEDS: Colace 100 MG PO SCH (21:33)
[2019-07-21] MEDS: Zocor 10MG PO SCH (21:33)
[2019-07-22 05:22] LABS: Hematocrit 26.8 % (35-47); Hemoglobin 8.7 gm/dl (12.0-16.0); Mean Cell Volume 80.2 fl (78-100); Mean Corpuscular Hgb Concent. 32.5 g/dl (32-36); Platelet Count 161 K/mm3 (150-450); Red Blood Count 3.34 M/mm3 (4.1-5.4); Red Cell Distribution Width 14.9 % (11.5-14.0); White Blood Count 5.5 K/mm3 (4.0-10.5)
[2019-07-22] MEDS: Sodium Chloride 0.9% 10 ML FLUSH Syringe IV SCH ×6 (05:31→21:37)
[2019-07-22] MEDS: PROVENTIL 2.5 MG/3 ML NEB IH SCH ×2 (06:50→18:43)
[2019-07-22] MEDS: Advair Hfa 230/21 Mcg COMMON CANISTER IH SCH ×2 (06:50→18:45)
[2019-07-22] MEDS: NON-FORMULARY ITEM PO SCH ×2 (08:31→18:28)
[2019-07-22] MEDS: NovoLOG Insulin SQ SCH ×3 (08:32→18:29)
[2019-07-22] MEDS: NovoLOG Insulin SQ PRN ×2 (08:32→21:40)
--- NOTE | 2019-07-22 08:59 | PCM.NOTE ---
Date and Time: 07/22/19 0853 Subjective Assessment: Patient reports increased stools yesterday but thinks from constipation earlier this hospital stay. She denies abdominal pain or nausea today. She does not like the fluid restriction that Dr. Thrasher placed her on. She reports headache yesterday but not today. She denies history of headache. I called Dr. New 's office and left a message about her episode night with opioid overdose. INSPECT reviewed and shows she is getting over 160 MME per day from Dr. New. This is filled by [facility]. I asked patient if she was trying to hurt herself that night and she said no. She stated she is trying to get better. I called Dr. Navarro's office and she has not been seen there for over 6 months and nurse stated he would not refill her insulin for her pump. They reported she was taking 39 units of long acting insulin and 5 units of insulin with meals. - Review of Systems Constitutional: No Symptoms Eyes: No Symptoms Ears, Nose, & Throat: No Symptoms Respiratory: No Symptoms Cardiac: No Symptoms Abdominal/Gastrointestinal: No Symptoms Genitourinary Symptoms: No Symptoms Musculoskeletal: No Symptoms Skin: No Symptoms Objective Exam General Appearance: no apparent distress Neurologic Exam: alert, cooperative, normal mood/affect Skin Exam: normal color, warm Respiratory Exam: other (few scattered rhonchi) Cardiovascular Exam: regular rate/rhythm, normal heart sounds, No murmur, No friction rub, No gallop Extremity Exam: other (no c/c/e of right leg; left leg with amputation) OBJECTIVE DATA Vital Signs: Vital Signs - 24 hr Temp Pulse Resp BP Pulse Ox 07/22/19 08:00 97.8 F 107 H 18 132/68 96 07/22/19 06:53 109 H 16 96 07/22/19 04:00 97.9 F 109 H 20 138/64 96 07/21/19 23:46 97.8 F 105 H 20 123/75 96 07/21/19 19:36 97.9 F 110 H 20 98/59 96 07/21/19 19:29 110 H 18 97 07/21/19 16:29 97.6 F 116 H 20 117/65 95 07/21/19 12:26 97.7 F 110 H 20 135/71 97 Pain Assessment - Last Documented Pain Intensity 0 Pain Scale Used 0-10 Pain Scale,FLACC Intake and Output: Intake & Output 07/20/19 07/21/19 07/22/19 07/23/19 06:59 06:59 06:59 06:59 Intake Total 2800 1195 1251 Output Total 3150 2300 1150 Balance -350 -1105 101 Weight 65.2 kg 68.9 kg 69 kg Lab Results: Accuchecks Date 07/22/19 Date 07/21/19 Date 07/21/19 Date 07/21/19 Time 07:30 Time 21:47 Time 16:30 Time 11:30 Accucheck Value: 410 Accucheck Value: 264 Accucheck Value: 351 Accucheck Value: 287 Lab Results-Last 24 Hours 07/22/19 07/22/19 Range/Units 04:25 04:25 WBC 5.5 (4.0-10.5) K/mm3 RBC 3.34 L (4.1-5.4) M/mm3 Hgb 8.7 L (12.0-16.0) gm/dl Hct 26.8 L (35-47) % MCV 80.2 (78-100) fl MCH 26.0 (26-32) pg MCHC 32.5 (32-36) g/dl RDW 14.9 H (11.5-14.0) % Plt Count 161 (150-450) K/mm3 MPV 10.0 H (6-9.5) fl 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 New's office to update. Code(s): T40.2X1A - POISONING BY OTH OPIOIDS, ACCIDENTAL (UNINTENTIONAL), INIT (2) COPD with exacerbation Current Visit: Yes Status: Acute Assessment & Plan: Much improvement will wean off IV steroid and change to oral steroids. Code(s): J44.1 - CHRONIC OBSTRUCTIVE PULMONARY DISEASE W (ACUTE) EXACERBATION (3) Cirrhosis of liver with ascites Current Visit: Yes Status: Acute Assessment & Plan: Continue follow up as outpatient with Dr. Valencia. Code(s): K74.60 - UNSPECIFIED CIRRHOSIS OF LIVER; R18.8 - OTHER ASCITES (4) Diabetes mellitus type 2, uncontrolled Current Visit: No Status: Acute Assessment & Plan: Will continue to adjust insulin and plan to send home on lantus and novolog if her insurance will cover this. Code(s): E11.65 - TYPE 2 DIABETES MELLITUS WITH HYPERGLYCEMIA (5) Nausea Current Visit: Yes Status: Resolved Code(s): R11.0 - NAUSEA (6) Hyponatremia Current Visit: No Status: Acute Assessment & Plan: Following with privacy officer. Code(s): E87.1 - HYPO-OSMOLALITY AND HYPONATREMIA (7) Tobacco abuse Current Visit: Yes Status: Acute Code(s): Z72.0 - TOBACCO USE (8) Chronic pain Current Visit: Yes Status: Acute Assessment & Plan: Currently controlled with cymbalta and neurontin. Code(s): G89.29 - OTHER CHRONIC PAIN (9) Sinus tachycardia Current Visit: Yes Status: Acute Assessment & Plan: May be related to fluid restriction. Will add metoprolol. Code(s): R00.0 - TACHYCARDIA, UNSPECIFIED
[2019-07-22] MEDS: ATARAX 25 MG PO SCH ×2 (09:35→21:35)
[2019-07-22] MEDS: PROTONIX 40 MG IV IV SCH (09:35)
[2019-07-22] MEDS: Calcium 500MG W/Vit D Tablet PO SCH (09:38)
[2019-07-22] MEDS: FEOSOL 325 MG PO SCH ×2 (09:39→21:37)
[2019-07-22] MEDS: NEURONTIN 300 MG PO SCH ×3 (09:40→21:37)
[2019-07-22] MEDS: Lopressor 25MG Tab PO SCH ×2 (09:40→21:37)
[2019-07-22] MEDS: NORVASC 5 MG PO SCH (09:41)
[2019-07-22] MEDS: SYNTHROID 25 MCG PO SCH (09:41)
[2019-07-22] MEDS: ROCEPHIN 1 Gm-D5w 50 ml Bag** 1 G/50 ML IVPB IV SCH (09:41)
[2019-07-22] MEDS: Zestril 5 MG PO SCH (09:41)
[2019-07-22] MEDS ORDERED: DELTASONE 20 MG PO SCH (10:00)
[2019-07-22] MEDS ORDERED: NovoLOG Insulin SQ ONE (12:00)
[2019-07-22] MEDS ORDERED: Lantus Insulin SQ ONE (12:15)
[2019-07-22] MEDS: Cymbalta 30 MG Capsule PO SCH (21:37)
[2019-07-22] MEDS: Zocor 10MG PO SCH (21:37)
[2019-07-22] MEDS: Colace 100 MG PO SCH (21:37)
[2019-07-23] MEDS: MOTRIN 600 MG PO PRN (02:15)
[2019-07-23] MEDS: Sodium Chloride 0.9% 10 ML FLUSH Syringe IV SCH ×2 (04:02)
[2019-07-23] MEDS: PROVENTIL 2.5 MG/3 ML NEB IH SCH (07:21)
[2019-07-23] MEDS: Advair Hfa 230/21 Mcg COMMON CANISTER IH SCH (07:22)
[2019-07-23 07:44] VITALS: PULSE 80
[2019-07-23] MEDS: Sodium Chloride 0.9% 1000 ML 1,000 ML IV SCH (07:47)
[2019-07-23] MEDS ORDERED: Lantus Insulin SQ SCH (08:00)
[2019-07-23] MEDS: NON-FORMULARY ITEM PO SCH (08:04)
[2019-07-23] MEDS: NovoLOG Insulin SQ SCH (08:05)
[2019-07-23 08:21] VITALS: BP 125/58; O2SAT 95
--- NOTE | 2019-07-23 08:38 | PCM.DCORD ---
- Discharge Discharge Date: 07/23/19 Disposition: HOME HEALTH SERVICE Condition: Good Prescriptions: New Prednisone 20 mg [Deltasone 20 mg] 20 mg PO DAILY #3 tablet Insulin Lispro [Humalog Kwikpen U-100] 8 unit SQ TIDWMEALS #3 insuln.pen Insulin Glargine,Hum.rec.anlog [Lantus Solostar] 30 unit SQ QAM #3 pens Metoprolol Tartrate 25 mg [Lopressor 25MG Tab] 25 mg PO BID #60 tab Continue Duloxetine HCl 30 mg [Cymbalta 30 MG Capsule] 60 mg PO HS Omeprazole 20 MG [Prilosec 20 mg] 20 mg PO DAILY Budesonide/Formoterol Fumarate [Symbicort 160-4.5 Mcg Inhaler] 2 puff IH BID Albuterol Sulfate [Proair Hfa] 2 puff IH Q4HPRN PRN PRN Reason: RESP Pravastatin Sodium [Pravachol] 10 mg PO HS Gabapentin [Gralise] 600 mg PO TID Docusate Sodium 100 mg [Colace 100 MG] 100 mg PO HS Ergocalciferol (Vitamin D2) [Vitamin D] 50,000 units PO UD Hydroxyzine HCl 10 mg PO BID Ferrous Sulfate 325 mg PO BID Levothyroxine Sodium 25 Mcg [Synthroid 25 Mcg] 25 mcg PO DAILY Lisinopril 5 mg [Zestril 5 MG] 5 mg PO DAILY #90 tablet Ondansetron ODT 4 MG [Zofran Odt 4 mg] 4 mg PO Q6H PRN PRN #10 tab.rapdis PRN Reason: Vomiting Discontinued Bumetanide 2 mg PO DAILY Amlodipine Besylate 5 mg PO DAILY Hydrocodone/Acetaminophen [Hadley 7.5-325 Tablet] 1 tab PO DAILY PRN PRN PRN Reason: Pain Insulin Lispro [Humalog] 100 unit SQ UD Tapentadol HCl [Nucynta ER] 200 mg PO BID Additional Instructions: Narcan script was handwritten. Please take this to your pharmacy. Do not take any opioid pain medication until you have spoken with Dr. Holt, your pain management physician. Do not take hydrocodone, Hadley, Vicodin or Nucynta. You are on a fluid restriction and you should not drink more than 1500 mL a day. I have sent a prescription for your pen needles for the insulin in through the outpatient computer system. Keep your upcoming appointment with Dr. Valencia also. Follow up with: HU ROJAS [CONSULTING PHYSICIAN] - 07/29/19 3:00 pm (at [facility] ) TERRY TRONCOSO [Primary Care Provider] - 07/30/19 10:30 am WARD SUTTON [NON-STAFF PHY W/O PRIVILEGES] - 1 Week VARSHA LEVINE [ACTIVE STAFF] - 1 Week WILFREDO HOLT [CONSULTING PHYSICIAN] - 1 Week
[2019-07-23] MEDS ORDERED: Lantus Insulin SQ ONE (12:00)
--- NOTE | 2019-07-24 09:43 | DS ---
DISCHARGE DIAGNOSES: 1) CHRONIC OBSTRUCTIVE PULMONARY DISEASE WITH EXACERBATION. 2) CIRRHOSIS OF THE LIVER WITH ASCITES. 3) DIABETES MELLITUS TYPE 2. 4) UNINTENTIONAL OPIOID OVERDOSE. 5) HYPONATREMIA. 6) NAUSEA. 7) TOBACCO ABUSE. 8) CHRONIC PAIN. 9) SINUS TACHYCARDIA. DISCHARGE PHYSICAL EXAMINATION: VITALS: Temperature current 98.0F, temperature max 98.0F, heart rate 80, respiratory rate 20, blood pressure 125/58. Oxygen saturation 95% on room air. GENERAL: The patient is a pleasant talkative lady sitting up in bed in no acute distress. CVS: She had a regular rate and rhythm. No murmurs, gallops or rubs are appreciated. CHEST: A few scattered wheezes, equal breath sounds. No tachypnea. No retractions. ABDOMEN: Soft, nontender, nondistended with normal bowel sounds. EXTREMITIES: No clubbing, cyanosis or edema right leg. Left leg shows below knee amputation. HOSPITAL COURSE: 1) CHRONIC OBSTRUCTIVE PULMONARY DISEASE WITH EXACERBATION: She was started on IV steroids and IV antibiotics during her hospitalization. She completed over five day course of azithromycin as well as seven day course of ceftriaxone and was weaned to oral steroids before her discharge. She was given breathing treatments in the hospital. Reported that she had medication at home to give herself. Her medications for her chronic obstructive pulmonary disease and follow up scheduled with her flagsetter, Dr. Zachery Galan, who also saw her while she was in the hospital. 2) CIRRHOSIS OF THE LIVER WITH ASCITES: She is being worked up as an outpatient with Dr. Valencia. She did have a paracentesis here that looked like the fluid was normal or inflammatory fluid from the cirrhosis and not infected. They took off 3.8 liters. 3) DIABETES MELLITUS TYPE 2: Uncontrolled. She has not seen her sales representative for over six months. She is usually on insulin pump but is almost out of insulin. I contacted their office and they will not refill this until they see her. I started her on Lantus and a short-acting insulin. She was discharged on Lantus and Humalog to follow up with her sales representative. 4) UNINTENTIONAL OPIOID OVERDOSE: On the evening of 07/18/2019, she was found with her purse open and decreased respirations and altered mental status and they thought that she had taken an opioid in her purse. She has a home prescription for Nucynta from Dr. New. She was given a total of three doses of Narcan at night and was doing fine the next morning. I spoke with Dr. New on the phone and explained what had happened. I have instructed the patient not to take any of her opioids as her body is not used to them at this point and to keep her appointment with Dr. New to talk about pain control. I explained to Dr. New the patient is doing fine off all opiates here in the hospital. She was on Cymbalta and gabapentin. 5) HYPONATREMIA: Her sodium was low on admission. Continued levothyroxine throughout her hospitalization. She was seen by Dr. Marshall and Dr. Thrasher that felt like her corrected sodium corrected for hypoglycemia was okay and they will follow as an outpatient. 6) NAUSEA: This improved during her hospitalization with treatment of the chronic obstructive pulmonary disease exacerbation. 7) TOBACCO ABUSE: The patient was counseled that she should quit smoking. 8) CHRONIC PAIN: She will follow up with Dr. New. 9) SINUS TACHYCARDIA: Started a low dose of metoprolol b.i.d. and her heart rate is within normal limits on the day of her discharge. DISCHARGE MEDICATIONS: Please see the discharge order. FOLLOW UP: She is to follow up with myself, Dr. Zachery Galan, Dr. Thrasher, Dr. Valencia, Dr. New and Dr. Navarro. DISPOSITION: The patient was discharged to home with home care.
== END 2019-07-23 09:27 | disposition home health service (06) | DRG 191 ==
LOC: MED SURG 16:02 → OBSVTOIN 07-17 13:03 → ICU 07-19 00:50 → MED SURG 07-22 22:20
PROVIDERS: ADMIT Internal Medicine; ATTEND Internal Medicine
DX: J44.1 Chronic obstructive pulmonary disease with (acute) exacerbation (principal); R18.8 Other ascites; E87.1 Hypo-osmolality and hyponatremia; N39.0 Urinary tract infection, site not specified; K74.60 Unspecified cirrhosis of liver; E11.65 Type 2 diabetes mellitus with hyperglycemia; I12.9 Hypertensive chronic kidney disease with stage 1 through stage 4 chronic kidney disease, or unspecified chronic kidney disease; E11.22 Type 2 diabetes mellitus with diabetic chronic kidney disease; N18.3 Chronic kidney disease, stage 3 (moderate); T40.2X1A Poisoning by other opioids, accidental (unintentional), initial encounter; R11.0 Nausea; G89.29 Other chronic pain; R00.0 Tachycardia, unspecified; Z72.0 Tobacco use; D50.9 Iron deficiency anemia, unspecified; Z89.512 Acquired absence of left leg below knee; R51 Headache
CPT/HCPCS: 36415; 36600; 49083; 71045; 71046; 80053; 80307; 81001; 82040; 82140; 82150; 82375; 82607; 82728; 82746; 82803; 82945; 82962; 83036; 83540; 83550; 83605; 83615; 83735; 83935; 84157; 84300; 85014; 85018; 85025; 85027; 85610; 87040; 87070; 87075; 87086; 87205; 89050; 89051; 93005; 94002; 94150; 94640; 94667; 94668; 94760; G0378; 90686; J0456; J0696; J2310; J2550; J2920; J2930; J7609; A9270-GY

== ENCOUNTER 2019-08-05 16:41 | Emergency (ER) | payer MEDICARE ==
[2019-08-05] MEDS ORDERED: Lasix 40 MG/4 ML IV ONE (17:03)
--- NOTE | 2019-08-05 17:14 | ERPHSYRPT ---
- History of Present Illness Time Seen by Provider: 08/05/19 16:55 Source: patient Exam Limitations: no limitations Patient Subjective Stated Complaint: pt here for sob for a couple days with swelling to lower right leg,and abd, pt was seen by kidney dr and he told her to come to the er, Triage Nursing Assessment: pt alert, arrived per wc, resp easy, skin yellow in color, warm and dry, and large and distended, she states had fluid remvoed from 2 weeks ago, pt is a left below the knee amputee, the stump is red and has an open sore which pt states she healing,bruising to right mtz from hitting her wc at home Physician History: The patient has been short of breath for the past 4 days and she feels like she is drowning. Patient has a history of ascites and was in the hospital last week. 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 Patient has been seen or treated by anyone prior to coming into the emergency department this late afternoon. Timing/Duration: day(s) (4) Activities at Onset: none Severity of Dyspnea-Max: severe Severity of Dyspnea-Current: severe Possible Cause: occasional episodes Modifying Factors: Worsens With: lying down Associated Symptoms: constant, edema (in abdomen), ankle swelling, heaviness, No cough, No chest pain/discomfort, No fever, No insomnia, No loss of appetite, No lightheadedness, No wheezing, No chills, No hemoptysis, No calf pain, No dizziness, No heart racing, No lightheadedness, No muscle spasms hands, No productive cough, No sweating, No tightness, No tingling face International travel in last 2 weeks: No Allergies/Adverse Reactions: adhesive tape Allergy (Mild, Verified 08/05/19 16:48) Hives bee stings Allergy (Mild, Uncoded 08/05/19 16:48) Hives Home Medications: Duloxetine HCl 30 mg [Cymbalta 30 MG Capsule] 60 mg PO HS 11/17/12 [ History] Albuterol Sulfate [Proair Hfa] 2 puff IH Q4HPRN PRN 04/21/15 [History] Budesonide/Formoterol Fumarate [Symbicort 160-4.5 Mcg Inhaler] 2 puff IH BID [History] Omeprazole 20 MG [Prilosec 20 mg] 20 mg PO DAILY 04/21/15 [History] Pravastatin Sodium [Pravachol] 10 mg PO HS 02/07/16 [History] Gabapentin [Gralise] 600 mg PO TID 11/11/16 [History] Docusate Sodium 100 mg [Colace 100 MG] 100 mg PO HS 01/18/19 [History] Ergocalciferol (Vitamin D2) [Vitamin D] 50,000 units PO UD 01/18/19 [History] Ferrous Sulfate 325 mg PO BID 01/18/19 [History] Hydroxyzine HCl 10 mg PO BID 01/18/19 [History] Levothyroxine Sodium 25 Mcg [Synthroid 25 Mcg] 25 mcg PO DAILY 01/18/19 [ History] Hx Tetanus, Diphtheria Vaccination/Date Given: No Hx Influenza Vaccination/Date Given: Yes Hx Pneumococcal Vaccination/Date Given: Yes Immunizations Up to Date: Yes - Review of Systems Constitutional: No Fever, No Chills Eyes: No Eye Pain, No Vision Changes Ears, Nose, & Throat: No Nose Congestion, No Mouth Swelling, No Painful Swallowing Respiratory: Dyspnea, No Cough Cardiac: Edema, No Chest Pain, No Syncope Abdominal/Gastrointestinal: No Abdominal Pain, No Nausea, No Vomiting, No Diarrhea, No Melena Genitourinary Symptoms: No Dysuria, No Hematuria Musculoskeletal: No Back Pain, No Neck Pain Skin: No Rash Neurological: No Dizziness, No Focal Weakness, No Headache, No Sensory Changes Psychological: No Symptoms Endocrine: No Symptoms Hematologic/Lymphatic: No Easy Bleeding, No Easy Bruising All Other Systems: Reviewed and Negative - Past Medical History Pertinent Past Medical History: Yes Neurological History: No Pertinent History ENT History: No Pertinent History Cardiac History: Hypertension Respiratory History: Asthma, COPD, Pneumonia Endocrine Medical History: Diabetes Type II Musculoskeletal History: Fractures GI Medical History: GERD, Other History: No Pertinent History Psycho-Social History: Anxiety, Depression Female Reproductive Disorders: No Pertinent History Other Medical History: left ankle fx with mult surgeries, in February 2019 bka. ascites. fatty liver - Past Surgical History Past Surgical History: Yes Neuro Surgical History: No Pertinent History Cardiac: No Pertinent History Respiratory: No Pertinent History Gastrointestinal: Cholecystectomy, Exploratory Laparoscopy Genitourinary: No Pertinent History Musculoskeletal: No Pertinent History, Amputation Female Surgical History: Section, Hysterectomy Other Surgical History: foot surgery, screw placed in left big toe, removal, and antibiotic bead placement. mult lt foot surgeries. LT BKA February 2019 - Social History Smoking Status: Current every day smoker How long have you smoked: "33 years" Exposure to second hand smoke: Yes Drug Use: none Patient Lives Alone: No - Female History Hx Last Menstrual Period: post - Nursing Vital Signs Nursing Vital Signs: Initial Vital Signs Temperature 97.7 F 08/05/19 16:52 Pulse Rate 80 08/05/19 16:52 Respiratory Rate 20 08/05/19 16:52 Blood Pressure 126/58 08/05/19 16:52 O2 Sat by Pulse Oximetry 100 08/05/19 16:52 Pain Scale Pain Intensity 0 - Physical Exam General Appearance: no apparent distress, mild distress, alert Eye Exam: PERRL/EOMI, eyes nml inspection, No scleral icterus, No pale conjunctivae Ears, Nose, Throat Exam: hearing grossly normal, normal pharynx, No pharyngeal erythema Neck Exam: normal inspection, supple, full range of motion, No Brudzinski, No lymphadenopathy (R), No lymphadenopathy (L) Respiratory Exam: airway intact, crackles/rales, No respiratory distress, No prolonged expirations, No rhonchi, No wheezing, No stridor Cardiovascular/Chest Exam: normal heart sounds, regular rate/rhythm Abdominal/Gastrointestinal Exam: soft, distention, other (positive fluid), No tenderness, No mass, No guarding, No rebound Extremity Exam: non-tender, normal range of motion, pedal edema, swelling Neurologic Exam: alert, 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, cooperative, motel operator II-XII nml as tested, sensation nml, No motor deficits Skin Exam: normal color, warm, No dry, No rash, No cyanosis, No jaundice SpO2 Interpretation: normal SpO2: 99 O2 Delivery: Room Air - Course Nursing assessment & vital signs reviewed: Yes EKG Interpreted by Me: RATE, Sinus Rhythm, NORMAL AXIS, NORMAL INTERVALS, NORMAL QRS, NORMAL ST-T, Other (negative for any appreciable change in comparison to EKG from 07/18/2019) - Radiology Exams Chest X-ray Interpretation: No Pneumonia, No Pneumothorax, Other (bilateral alveolar infiltrates, R> L) Ordered Tests: Active Orders 24 hr Category Date Time Status [facility] STAT Care 08/05/19 17:04 Active Catheter-[place] STAT Care 08/05/19 17:03 Active EKG-ER Only STAT Care 08/05/19 17:03 Active IV Insertion STAT Care 08/05/19 17:03 Active NPO (ED) STAT Care 08/05/19 17:03 Active Pulse Oximetry (ED) STAT Care 08/05/19 17:03 Active CHEST 1 VIEW (PORTABLE) Stat Exams 08/05/19 17:03 Taken BLOOD CULTURE Stat Lab 08/05/19 17:22 Received CBC W DIFF Stat Lab 08/05/19 17:19 Completed CMP Stat Lab 08/05/19 17:19 Completed CULTURE,URINE Stat Lab 08/05/19 Received Lactic Acid Stat Lab 08/05/19 17:29 Completed MAGNESIUM Stat Lab 08/05/19 17:19 Completed NT PRO BNP Stat Lab 08/05/19 17:19 Completed PROTIME WITH INR Stat Lab 08/05/19 17:19 Completed TROPONIN Q3H Lab 08/05/19 17:19 Completed TROPONIN Q3H Lab 08/05/19 20:15 Ordered TROPONIN Q3H Lab 08/05/19 23:15 Ordered TROPONIN Q3H Lab 08/06/19 02:15 Ordered TROPONIN Q3H Lab 08/06/19 05:15 Ordered TSH [TSH, 3RD Generation] Stat Lab 08/05/19 17:15 Completed UA W/RFX UR CULTURE Stat Lab 08/05/19 Completed VENOUS BLOOD GAS Stat Lab 08/05/19 17:29 Completed BiPap/CPAP STAT RT 08/05/19 17:03 Active Respiratory Therapy Assessment DAILY RT 08/05/19 19:25 Active Medication Summary Discontinued Medications Generic Name Dose Route Start Last Admin Trade Name Freq PRN Reason Stop Dose Admin Albuterol/Ipratropium Confirm 08/05/19 19:18 Duoneb 0.5-3 Mg/3 Ml Neb Administered 08/05/19 19:19 Dose 3 ml IH .STK-MED ONE Albuterol/Ipratropium 3 ml 08/05/19 19:21 08/05/19 19:24 Duoneb 0.5-3 Mg/3 Ml Neb IH 08/05/19 19:22 3 ml STAT ONE Administration Furosemide 40 mg 08/05/19 17:03 08/05/19 17:31 Lasix 40 Mg/4 Ml IV 08/05/19 17:04 40 mg STAT ONE Administration Furosemide Confirm 08/05/19 17:29 Lasix 40 Mg/4 Ml Administered 08/05/19 17:30 Dose 40 mg .ROUTE .STK-MED ONE Lab/Rad Data: Laboratory Result Diagrams 08/05/19 17:19 08/05/19 17:19 Laboratory Results 08/05/19 08/05/19 08/05/19 Range/Units Unknown 17:29 17:19 WBC (4.0-10.5) K/mm3 RBC (4.1-5.4) M/mm3 Hgb (12.0-16.0) gm/dl Hct (35-47) % MCV (78-100) fl MCH (26-32) pg MCHC (32-36) g/dl RDW (11.5-14.0) % Plt Count (150-450) K/mm3 MPV (6-9.5) fl Gran % (36.0-66.0) % Eos # (Auto) (0-0.5) Absolute Lymphs (auto) (1.0-4.6) Absolute Monos (auto) (0.0-1.3) Lymphocytes % (24.0-44.0) % Monocytes % (0.0-12.0) % Eosinophils % (0.00-5.0) % Basophils % (0.0-0.4) % Absolute Granulocytes (1.4-6.9) Basophils # (0-0.4) PT (9.95-12.35) SECONDS INR (0.8-3.0) pO2/FiO2 Ratio 21.0 % VBG pH 7.33 (7.32-7.42) VBG pCO2 at Pat Temp 45 (42-55) mm/Hg VBG pO2 at Pat Temp 23 L (25-40) mm/Hg VBG HCO3 23.7 (22-28) meq/L VBG O2 Sat (Radha) 48.7 L (95-100) VBG Base Excess -2.2 L (-2.0-2.0) VBG Hemoglobin 9.2 VBG Carboxyhemoglobin 7.8 H* (0.0-6.9) % T HGB POC Potassium 3.9 (3.5-5.1) Sodium (137-145) mmol/L Potassium (3.5-5.1) mmol/L Chloride (98-107) mmol/L Carbon Dioxide (22-30) mmol/L Anion Gap (5-15) MEQ/L BUN (7-17) mg/dL Creatinine (0.52-1.04) mg/dL Estimated GFR ML/MIN Glucose (74-106) mg/dL Lactic Acid 1.1 (0.4-2.0) Calcium (8.4-10.2) mg/dL Magnesium (1.6-2.3) mg/dL Total Bilirubin (0.2-1.3) mg/dL AST (14-36) U/L ALT (0-35) U/L Alkaline Phosphatase (38-126) U/L Troponin I < 0.012 (0.000-0.034) ng/mL NT-Pro-B Natriuret Pep (0-900) pg/mL Serum Total Protein (6.3-8.2) g/dL Albumin (3.5-5.0) g/dL TSH 3rd Generation (0.47-4.68) mIU/L Urine Color STRAW (YELLOW) Urine Appearance CLEAR (CLEAR) Urine pH 6.0 (5-6) Ur Specific [place] 1.004 (1.005-1.025) Urine Protein NEGATIVE (Negative) Urine Ketones NEGATIVE (NEGATIVE) Urine Blood NEGATIVE (0-5) Ubaldo/ul Urine Nitrite NEGATIVE (NEGATIVE) Urine Bilirubin NEGATIVE (NEGATIVE) Urine Urobilinogen NEGATIVE (0-1) mg/dL Ur Leukocyte Esterase NEGATIVE (NEGATIVE) Urine WBC (Auto) 11-15 (0-5) /HPF Urine RBC (Auto) 0-2 (0-2) /HPF Urine Bacteria (Auto) RARE (NEGATIVE) /HPF Urine Culture Reflexed YES (NO) Urine Glucose NEGATIVE (NEGATIVE) mg/dL 08/05/19 08/05/19 08/05/19 Range/Units 17:19 17:19 17:19 WBC 11.3 H (4.0-10.5) K/mm3 RBC 3.49 L (4.1-5.4) M/mm3 Hgb 9.3 L (12.0-16.0) gm/dl Hct 28.0 L (35-47) % MCV 80.2 (78-100) fl MCH 26.6 (26-32) pg MCHC 33.2 (32-36) g/dl RDW 15.5 H (11.5-14.0) % Plt Count 189 (150-450) K/mm3 MPV 9.8 H (6-9.5) fl Gran % 75.0 H (36.0-66.0) % Eos # (Auto) 0.30 (0-0.5) Absolute Lymphs (auto) 1.97 (1.0-4.6) Absolute Monos (auto) 0.51 (0.0-1.3) Lymphocytes % 17.4 L (24.0-44.0) % Monocytes % 4.5 (0.0-12.0) % Eosinophils % 2.7 (0.00-5.0) % Basophils % 0.4 (0.0-0.4) % Absolute Granulocytes 8.48 H (1.4-6.9) Basophils # 0.05 (0-0.4) PT 14.3 H (9.95-12.35) SECONDS INR 1.26 (0.8-3.0) pO2/FiO2 Ratio % VBG pH (7.32-7.42) VBG pCO2 at Pat Temp (42-55) mm/Hg VBG pO2 at Pat Temp (25-40) mm/Hg VBG HCO3 (22-28) meq/L VBG O2 Sat (Radha) (95-100) VBG Base Excess (-2.0-2.0) VBG Hemoglobin VBG Carboxyhemoglobin (0.0-6.9) % T HGB POC Potassium (3.5-5.1) Sodium 131 L (137-145) mmol/L Potassium 4.0 (3.5-5.1) mmol/L Chloride 96 L (98-107) mmol/L Carbon Dioxide 25 (22-30) mmol/L Anion Gap 13.6 (5-15) MEQ/L BUN 20 H (7-17) mg/dL Creatinine 1.35 H (0.52-1.04) mg/dL Estimated GFR 43.8 ML/MIN Glucose 143 H (74-106) mg/dL Lactic Acid (0.4-2.0) Calcium 8.6 (8.4-10.2) mg/dL Magnesium 1.5 L (1.6-2.3) mg/dL Total Bilirubin 0.40 (0.2-1.3) mg/dL AST 60 H (14-36) U/L ALT 41 H (0-35) U/L Alkaline Phosphatase 283 H (38-126) U/L Troponin I (0.000-0.034) ng/mL NT-Pro-B Natriuret Pep 442 (0-900) pg/mL Serum Total Protein 7.6 (6.3-8.2) g/dL Albumin 3.2 L (3.5-5.0) g/dL TSH 3rd Generation (0.47-4.68) mIU/L Urine Color (YELLOW) Urine Appearance (CLEAR) Urine pH (5-6) Ur Specific [place] (1.005-1.025) Urine Protein (Negative) Urine Ketones (NEGATIVE) Urine Blood (0-5) Ubaldo/ul Urine Nitrite (NEGATIVE) Urine Bilirubin (NEGATIVE) Urine Urobilinogen (0-1) mg/dL Ur Leukocyte Esterase (NEGATIVE) Urine WBC (Auto) (0-5) /HPF Urine RBC (Auto) (0-2) /HPF Urine Bacteria (Auto) (NEGATIVE) /HPF Urine Culture Reflexed (NO) Urine Glucose (NEGATIVE) mg/dL 08/05/19 Range/Units 17:15 WBC (4.0-10.5) K/mm3 RBC (4.1-5.4) M/mm3 Hgb (12.0-16.0) gm/dl Hct (35-47) % MCV (78-100) fl MCH (26-32) pg MCHC (32-36) g/dl RDW (11.5-14.0) % Plt Count (150-450) K/mm3 MPV (6-9.5) fl Gran % (36.0-66.0) % Eos # (Auto) (0-0.5) Absolute Lymphs (auto) (1.0-4.6) Absolute Monos (auto) (0.0-1.3) Lymphocytes % (24.0-44.0) % Monocytes % (0.0-12.0) % Eosinophils % (0.00-5.0) % Basophils % (0.0-0.4) % Absolute Granulocytes (1.4-6.9) Basophils # (0-0.4) PT (9.95-12.35) SECONDS INR (0.8-3.0) pO2/FiO2 Ratio % VBG pH (7.32-7.42) VBG pCO2 at Pat Temp (42-55) mm/Hg VBG pO2 at Pat Temp (25-40) mm/Hg VBG HCO3 (22-28) meq/L VBG O2 Sat (Radha) (95-100) VBG Base Excess (-2.0-2.0) VBG Hemoglobin VBG Carboxyhemoglobin (0.0-6.9) % T HGB POC Potassium (3.5-5.1) Sodium (137-145) mmol/L Potassium (3.5-5.1) mmol/L Chloride (98-107) mmol/L Carbon Dioxide (22-30) mmol/L Anion Gap (5-15) MEQ/L BUN (7-17) mg/dL Creatinine (0.52-1.04) mg/dL Estimated GFR ML/MIN Glucose (74-106) mg/dL Lactic Acid (0.4-2.0) Calcium (8.4-10.2) mg/dL Magnesium (1.6-2.3) mg/dL Total Bilirubin (0.2-1.3) mg/dL AST (14-36) U/L ALT (0-35) U/L Alkaline Phosphatase (38-126) U/L Troponin I (0.000-0.034) ng/mL NT-Pro-B Natriuret Pep (0-900) pg/mL Serum Total Protein (6.3-8.2) g/dL Albumin (3.5-5.0) g/dL TSH 3rd Generation 3.610 (0.47-4.68) mIU/L Urine Color (YELLOW) Urine Appearance (CLEAR) Urine pH (5-6) Ur Specific [place] (1.005-1.025) Urine Protein (Negative) Urine Ketones (NEGATIVE) Urine Blood (0-5) Ubaldo/ul Urine Nitrite (NEGATIVE) Urine Bilirubin (NEGATIVE) Urine Urobilinogen (0-1) mg/dL Ur Leukocyte Esterase (NEGATIVE) Urine WBC (Auto) (0-5) /HPF Urine RBC (Auto) (0-2) /HPF Urine Bacteria (Auto) (NEGATIVE) /HPF Urine Culture Reflexed (NO) Urine Glucose (NEGATIVE) mg/dL - Progress Progress: re-examined Air Movement: good Progress Note: 08/05/19 19:20 Patient feels much better after BiPAP and IV Lasix and feels she can breathe easy now. Patient still had same findings of crackles and some rhonchi. I will do one DuoNeb treatment. 08/05/19 19:57 Discussed the patient and her presentation, imaging and labs with Dr Galan, Pulmonology. Dr Galan states he will be able to see her on 08/07/2019 due to being in the office all day tomorrow, but will be able for phone consultation 08/05/2019 19:58 Discussed the recommendations and when Dr Galan can see the paitent with Dr Troncoso, patient's physician and hospitalist. Due to Reid not being able to potentially see the patient for two days and the patient's specialists are in [place], [place], Dr Troncoso recommended transfer to [facility] in [place], [place]. 08/05/19 20:11 Discussed the patient with Dr Cuellar, Emergency Department attending at [facility] in [place], [place]. Dr Cuellar accepted the patient for transfer to [facility]. Blood Culture(s) Obtained: No Antibiotics given: No Discussed with DrJace: Faheem (@19:15, spoke with Dr Troncoso about the patient, her presentation and x-ray and lab results. Dr Troncoso would like Reid, [employer] consulted since patient was recently admitted and had paracentesis performed and has no history of heart failure.) Counseled pt/family regarding: lab results, diagnosis, need for follow-up, rad results - Departure Departure Disposition: Home Clinical Impression: Shortness of breath, Acute renal insufficiency, COPD with exacerbation, Hypomagnesemia, COPD with exacerbation CHF (congestive heart failure) Qualifiers: Heart failure type: unspecified Heart failure chronicity: acute Qualified Code( s): I50.9 - Heart failure, unspecified Cirrhosis of liver with ascites Qualifiers: Hepatic cirrhosis type: unspecified hepatic cirrhosis Qualified Code(s): K74.60 - Unspecified cirrhosis of liver; R18.8 - Other ascites Condition: Fair Critical Care Time: Yes Critical Care Time(excluding separately billable procedures): Critical 30-74 mins Referrals: TERRY TRONCOSO [Primary Care Provider] - Instructions: Heart Failure, Shortness of Breath (Dyspnea) (DC), Chronic Obstructive Pulmonary Disease
[2019-08-05] MEDS ORDERED: Lasix 40 MG/4 ML ONE (17:29)
[2019-08-05 17:30] LABS: Absolute Neutrophil Ct (ANC) 8.48 (1.4-6.9); BASOPHIL % 0.4 % (0.0-0.4); Basophil (Absolute #) 0.05 (0-0.4); Eosinophil % 2.7 % (0.00-5.0); Hemoglobin 9.3 gm/dl (12.0-16.0); Lymphocyte (Absolute #) 1.97 (1.0-4.6); Lymphocytes % 17.4 % (24.0-44.0); Mean Cell Volume 80.2 fl (78-100); Mean Corpuscular Hemoglobin 26.6 pg (26-32); Mean Corpuscular Hgb Concent. 33.2 g/dl (32-36); Mean Platelet Volume 9.8 fl (6-9.5); Monocyte (Absolute #) 0.51 (0.0-1.3); Monocytes % 4.5 % (0.0-12.0); Platelet Count 189 K/mm3 (150-450); Red Blood Count 3.49 M/mm3 (4.1-5.4); Red Cell Distribution Width 15.5 % (11.5-14.0); White Blood Count 11.3 K/mm3 (4.0-10.5)
[2019-08-05 17:32] LABS: Lactic Acid 1.1 (0.4-2.0); VBG BASE EXCESS -2.2 (-2.0-2.0); VBG CARBOXYHEMOGLOBIN 7.8 % T HGB (0.0-6.9); VBG HCO3- 23.7 meq/L (22-28); VBG HEMOGLOBIN 9.2; VBG O2 SATURATION 48.7 (95-100); VBG POTASSIUM 3.9 (3.5-5.1); VBG pH 7.33 (7.32-7.42)
[2019-08-05 17:35] LABS: INR 1.26 (0.8-3.0); PROTIME 14.3 SECONDS (9.95-12.35)
[2019-08-05 17:48] LABS: ALBUMIN 3.2 g/dL (3.5-5.0); ANION GAP 13.6 MEQ/L (5-15); BILIRUBIN,TOTAL 0.4 mg/dL (0.2-1.3); Calcium 8.6 mg/dL (8.4-10.2); Creatinine 1 1.35 mg/dL (0.52-1.04); MAGNESIUM 1.5 mg/dL (1.6-2.3); Total Protein 7.6 g/dL (6.3-8.2)
[2019-08-05 18:56] VITALS: O2SAT 99
[2019-08-05 19:17] LABS: Appearance CLEAR (CLEAR); Bacteria RARE /HPF (NEGATIVE); Bilirubin NEGATIVE (NEGATIVE); Blood NEGATIVE Ery/ul (0-5); Glucose NEGATIVE (NEGATIVE); Ketones NEGATIVE (NEGATIVE); Leukocyte Esterase NEGATIVE (NEGATIVE); Nitrite NEGATIVE (NEGATIVE); Protein,Urine Dip NEGATIVE (Negative); RBC 0-2 /HPF (0-2); Specific Gravity 1.004 (1.005-1.025); Urobilinogen NEGATIVE mg/dL (0-1)
[2019-08-05] MEDS ORDERED: DUONEB 0.5-3 MG/3 ml Neb IH ONE ×2 (19:18→19:21)
[2019-08-05] MEDS ORDERED: Magnesium 1 Gm / 100 Ml D5W*** 100 ML IV ONE ×2 (20:14→20:32)
[2019-08-05 20:39] VITALS: BP 99/54; PULSE 74
--- NOTE | 2019-08-06 08:55 | XRAY ---
Indication: Difficulty breathing. Cough 2 weeks. Comparison: July 18, 2019. Portable chest demonstrates mild improvement in the bilateral interstitial alveolar opacities with greatest focus in the right base. Heart is not enlarged. No new cardiopulmonary abnormalities.
== END 2019-08-05 21:15 | disposition short-term general hospital (02) ==
LOC: ED 16:41
DX: R06.02 Shortness of breath (principal); N28.9 Disorder of kidney and ureter, unspecified; E83.42 Hypomagnesemia; J44.1 Chronic obstructive pulmonary disease with (acute) exacerbation; I50.9 Heart failure, unspecified; R18.8 Other ascites; I10 Essential (primary) hypertension; E11.9 Type 2 diabetes mellitus without complications; K21.9 Gastro-esophageal reflux disease without esophagitis; K76.0 Fatty (change of) liver, not elsewhere classified; F41.9 Anxiety disorder, unspecified
CPT/HCPCS: 36000; 36415; 51702; 71045; 80053; 81001; 82805; 83605; 83735; 83880; 83935; 84300; 84443; 84484; 85025; 85610; 87040; 87086; 93005; 93041; 94002; 94640; 94760; 96374; 99285; 99291; J1940; J3475; A9270-GY

== ENCOUNTER 2019-08-29 14:39 | Emergency (ER) | payer MEDICARE ==
[2019-08-29] MEDS ORDERED: DUONEB 0.5-3 MG/3 ml Neb IH ONE ×2 (15:05→15:11)
--- NOTE | 2019-08-29 15:38 | XRAY ---
Indication: Posterior head injury following fall. Multiple contiguous axial images obtained through the head without contrast. Comparison: January 17, 2019. Normal appearing brain parenchyma, ventricles, and bony calvarium. Tiny posterior midline scalp hematoma. Visualized paranasal sinuses demonstrates near complete opacification of both ethmoid, both maxillary, and right ethmoid sinuses. Impression: 1. Posterior scalp hematoma. No underlying fracture or acute intracranial abnormalities. 2. Incidental new pansinusitis. CT DI 56.04
--- NOTE | 2019-08-29 15:40 | XRAY ---
Indication: Posterior head injury following fall. Multiple contiguous axial images obtained through the cervical spine. Sagittal and coronal reformatted images obtained. Comparison: None. Study slightly degraded by motion artifact. Axial images negative for gross acute fracture, suspicious bony lesions, or spinal canal stenosis. Mild C5-C6 degenerative endplate spurring. Sagittal and coronal reformatted images demonstrates cervical lordotic straightening, positional versus paraspinal spasm. Mild C5-C6 disc space narrowing. No acute compression fracture, subluxation, or jumped facet. Normal appearing craniocervical junction. Visualized noncontrasted soft tissues unremarkable. Visualized lung apices demonstrates bilateral interstitial alveolar opacities. Impression: 1. Motion artifact. 2. Negative gross acute fracture/subluxation. Cervical lordotic straightening, positional versus paraspinal spasm. 3. C5-C6 degenerative changes. 4. Incidental biapical interstitial alveolar opacities. Rule out pneumonia. CT DI 56.04
[2019-08-29 19:12] VITALS: BP 103/59; PULSE 76; O2SAT 95
--- NOTE | 2019-08-29 19:20 | ERPHSYRPT ---
- History of Present Illness Time Seen by Provider: 08/29/19 15:03 Source: patient Exam Limitations: no limitations Patient Subjective Stated Complaint: PT states "I was getting help out of my wheelchair and I fell over backwards and hit my head. I was told I was knocked out." Triage Nursing Assessment: PT presented alert and oriented X 3, skin pwd Pt able to speak in full sentences, slightly slurred, pt has large hematoma to occiput, no other injures noted. Physician History: fell out of her wheel luiza struck the back of her head negative LOC is Timing/Duration: today Severity: mild Associated Symptoms: nausea, other ( who) Allergies/Adverse Reactions: adhesive tape Allergy (Mild, Verified 08/05/19 16:48) Hives bee stings Allergy (Mild, Uncoded 08/05/19 16:48) Hives Home Medications: Duloxetine HCl 30 mg [Cymbalta 30 MG Capsule] 60 mg PO HS 11/17/12 [ History] Albuterol Sulfate [Proair Hfa] 2 puff IH Q4HPRN PRN 04/21/15 [History] Budesonide/Formoterol Fumarate [Symbicort 160-4.5 Mcg Inhaler] 2 puff IH BID [History] Omeprazole 20 MG [Prilosec 20 mg] 20 mg PO DAILY 04/21/15 [History] Pravastatin Sodium [Pravachol] 10 mg PO HS 02/07/16 [History] Gabapentin [Gralise] 600 mg PO TID 11/11/16 [History] Docusate Sodium 100 mg [Colace 100 MG] 100 mg PO HS 01/18/19 [History] Ergocalciferol (Vitamin D2) [Vitamin D] 50,000 units PO UD 01/18/19 [History] Ferrous Sulfate 325 mg PO BID 01/18/19 [History] Hydroxyzine HCl 10 mg PO BID 01/18/19 [History] Levothyroxine Sodium 25 Mcg [Synthroid 25 Mcg] 25 mcg PO DAILY 01/18/19 [ History] Hx Tetanus, Diphtheria Vaccination/Date Given: Yes Hx Influenza Vaccination/Date Given: Yes Hx Pneumococcal Vaccination/Date Given: Yes Immunizations Up to Date: Yes - Review of Systems Constitutional: No Symptoms Eyes: No Symptoms Ears, Nose, & Throat: Nose Congestion Respiratory: Cough Cardiac: No Symptoms Abdominal/Gastrointestinal: No Symptoms Genitourinary Symptoms: No Symptoms Musculoskeletal: Back Pain, Neck Pain, Myalgias Skin: No Symptoms Neurological: Headache Psychological: No Symptoms Endocrine: No Symptoms Hematologic/Lymphatic: No Symptoms All Other Systems: Reviewed and Negative - Past Medical History Pertinent Past Medical History: Yes Neurological History: No Pertinent History ENT History: No Pertinent History Cardiac History: Hypertension Respiratory History: Asthma, COPD, Pneumonia Endocrine Medical History: Diabetes Type II Musculoskeletal History: Fractures GI Medical History: GERD, Other History: No Pertinent History Psycho-Social History: Anxiety, Depression Female Reproductive Disorders: No Pertinent History Other Medical History: left ankle fx with mult surgeries, in February 2019 bka. ascites. fatty liver - Past Surgical History Past Surgical History: Yes Neuro Surgical History: No Pertinent History Cardiac: No Pertinent History Respiratory: No Pertinent History Gastrointestinal: Cholecystectomy, Exploratory Laparoscopy Genitourinary: No Pertinent History Musculoskeletal: No Pertinent History, Amputation Female Surgical History: Section, Hysterectomy Other Surgical History: foot surgery, screw placed in left big toe, removal, and antibiotic bead placement. mult lt foot surgeries. LT BKA February 2019 - Social History Smoking Status: Current every day smoker How long have you smoked: years Exposure to second hand smoke: Yes Drug Use: none Patient Lives Alone: No - Female History Hx Now: No - Nursing Vital Signs Nursing Vital Signs: Initial Vital Signs Temperature 97.7 F 08/29/19 14:40 Pulse Rate 77 08/29/19 14:40 Respiratory Rate 18 08/29/19 14:40 Blood Pressure 141/53 08/29/19 14:40 O2 Sat by Pulse Oximetry 97 08/29/19 14:40 Pain Scale Pain Intensity 2 - Physical Exam General Appearance: mild distress Eye Exam: PERRL/EOMI, eyes nml inspection Ears, Nose, Throat Exam: normal ENT inspection, TMs normal, moist mucous membranes, other (p0oor oral care/dentition) Neck Exam: other (pos: mild tenderness c1,2 pos: paracerviocal fullnesas r>l) Respiratory Exam: diminished breath sounds, wheezing (end exp mbases), No respiratory distress, No accessory muscle use Cardiovascular Exam: regular rate/rhythm, murmur (1-2/6 sys apex) Gastrointestinal/Abdomen Exam: soft, normal bowel sounds, tenderness, distention Pelvic Exam: deferred Rectal Exam: deferred Back Exam: other (pos : djd c,t,l sp[ine with decreased rom pos: c-spine tenderness neg:t,l spione tendernesss) Extremity Exam: normal range of motion, pelvis stable, amputations (lle --aka ) , other (s/p aka ), No calf tenderness, No deformities Skin Exam: normal color Lymphatic Exam: adenopathy SpO2 Interpretation: normal SpO2: 95 O2 Delivery: Room Air Comments: 08/29/19 19:19 head: pos cephalohematoma : occipital 3X4 cm pos: tenderness mild - Course Nursing assessment & vital signs reviewed: Yes Ordered Tests: Active Orders 24 hr Category Date Time Status IV Insertion STAT Care 08/29/19 14:55 Active CERVICAL SPINE WO CONTRAST [CT] Stat Exams 08/29/19 15:04 Completed HEAD WITHOUT CONTRAST [CT] Stat Exams 08/29/19 15:04 Completed Peak Expiratory Flow Rate ONCE RT 08/29/19 15:42 Active Respiratory Therapy Assessment DAILY RT 08/29/19 15:42 Active Medication Summary Discontinued Medications Generic Name Dose Route Start Last Admin Trade Name Freq PRN Reason Stop Dose Admin Albuterol/Ipratropium 3 ml 08/29/19 15:05 08/29/19 15:38 Duoneb 0.5-3 Mg/3 Ml Neb IH 08/29/19 15:06 3 ml STAT ONE Administration Albuterol/Ipratropium Confirm 08/29/19 15:11 Duoneb 0.5-3 Mg/3 Ml Neb Administered 08/29/19 15:12 Dose 3 ml IH .STK-MED ONE - Progress Progress: improved - Departure Departure Disposition: Home Clinical Impression: Fall, Blunt head trauma, Acute cervical myofascial strain, COPD (chronic obstructive pulmonary disease), Acute pansinusitis Condition: Stable Critical Care Time: No Referrals: TERRY TRONCOSO [Primary Care Provider] - Instructions: Concussion, Adult (DC), Closed Head Injury (DC), Chronic Obstructive Pulmonary Disease Additional Instructions: home meds as directed follow up with private doctor next week return to ER if any changes in symptoms Prescriptions: Amoxicillin/Potassium Clav [Augmentin 500-125 Tablet] 1 each PO TID #30 tablet
== END 2019-08-29 19:50 | disposition home or self-care (01) ==
LOC: ED 14:39
DX: S09.90XA Unspecified injury of head, initial encounter (principal); W05.0XXA Fall from non-moving wheelchair, initial encounter; Y93.9 Activity, unspecified; Y92.9 Unspecified place or not applicable; S16.1XXA Strain of muscle, fascia and tendon at neck level, initial encounter; J44.9 Chronic obstructive pulmonary disease, unspecified; J01.40 Acute pansinusitis, unspecified; W22.09XA Striking against other stationary object, initial encounter; Z79.899 Other long term (current) drug therapy; R51 Headache; I10 Essential (primary) hypertension; J45.909 Unspecified asthma, uncomplicated; E11.9 Type 2 diabetes mellitus without complications; K21.9 Gastro-esophageal reflux disease without esophagitis; F41.9 Anxiety disorder, unspecified; K76.0 Fatty (change of) liver, not elsewhere classified
CPT/HCPCS: 36000; 70450; 72125; 82962; 94150; 94640; 99284; A9270-GY

== ENCOUNTER 2019-09-12 19:23 | Emergency (ER) | payer MEDICARE ==
[2019-09-12] MEDS ORDERED: BABY ASPIRIN 81 MG CHEW PO ONE (19:40)
[2019-09-12] MEDS ORDERED: solu-MEDROL 125 MG IV ONE (19:42)
[2019-09-12] MEDS ORDERED: DUONEB 0.5-3 MG/3 ml Neb IH ONE ×2 (19:42→20:23)
--- NOTE | 2019-09-12 19:49 | ERPHSYRPT ---
- History of Present Illness Time Seen by Provider: 09/12/19 19:25 Historian: patient Exam Limitations: no limitations Patient Subjective Stated Complaint: pt states she has chest congestion and gets frequent bronchitis, states she has a nonproductive cough. leg edema for last month. Triage Nursing Assessment: pt alert and oriented, answers questions approp. pt back per wheelchair, transfers to stretcher with assist of 1, lt bka. skin warm and dry. edema noted to rt lower ext and lt lower stump. occasional moist cough noted. insp and exp wheezes noted, crackles to bases. Physician History: Patient is here with chest pain. Mid-sternal, non-radiating. It has been going on since yesterday. She has no fall or trauma. Location: mid-sternal Quality: sharp Radiation: none Severity: moderate Duration: since last night Timing: intermittent and lasts for 20 mins Modifying factors/associated signs and symptoms: none tried Timing/Duration: yesterday Activities at Onset: none Quality: sharpness Aspirin Treatment Today: no aspirin today Allergies/Adverse Reactions: adhesive tape Allergy (Mild, Verified 09/12/19 19:45) Hives bee stings Allergy (Mild, Uncoded 09/12/19 19:45) Hives Home Medications: Duloxetine HCl 30 mg [Cymbalta 30 MG Capsule] 60 mg PO HS 11/17/12 [ History] Albuterol Sulfate [Proair Hfa] 2 puff IH Q4HPRN PRN 04/21/15 [History] Budesonide/Formoterol Fumarate [Symbicort 160-4.5 Mcg Inhaler] 2 puff IH BID [History] Omeprazole 20 MG [Prilosec 20 mg] 20 mg PO DAILY 04/21/15 [History] Pravastatin Sodium [Pravachol] 10 mg PO HS 02/07/16 [History] Gabapentin [Gralise] 600 mg PO TID 11/11/16 [History] Docusate Sodium 100 mg [Colace 100 MG] 100 mg PO HS 01/18/19 [History] Ergocalciferol (Vitamin D2) [Vitamin D] 50,000 units PO UD 01/18/19 [History] Ferrous Sulfate 325 mg PO BID 01/18/19 [History] Hydroxyzine HCl 10 mg PO BID 01/18/19 [History] Levothyroxine Sodium 25 Mcg [Synthroid 25 Mcg] 25 mcg PO DAILY 01/18/19 [ History] Hx Tetanus, Diphtheria Vaccination/Date Given: Yes Hx Influenza Vaccination/Date Given: Yes Hx Pneumococcal Vaccination/Date Given: Yes Immunizations Up to Date: Yes - Review of Systems Constitutional: No Fever, No Chills Eyes: No Symptoms Ears, Nose, & Throat: No Symptoms Respiratory: Cough, Dyspnea Cardiac: Chest Pain, No Edema, No Syncope Abdominal/Gastrointestinal: No Abdominal Pain, No Nausea, No Vomiting, No Diarrhea Genitourinary Symptoms: No Dysuria Musculoskeletal: No Back Pain, No Neck Pain Skin: No Rash Neurological: No Dizziness, No Focal Weakness, No Sensory Changes Psychological: No Symptoms Endocrine: No Symptoms All Other Systems: Reviewed and Negative - Past Medical History Pertinent Past Medical History: Yes Neurological History: No Pertinent History ENT History: No Pertinent History Cardiac History: Hypertension Respiratory History: Asthma, COPD, Pneumonia Endocrine Medical History: Diabetes Type II Musculoskeletal History: Fractures GI Medical History: GERD, Other History: No Pertinent History Psycho-Social History: Anxiety, Depression Female Reproductive Disorders: No Pertinent History Other Medical History: left ankle fx with mult surgeries, in February 2019 bka,. ascites. fatty liver - Past Surgical History Past Surgical History: Yes Neuro Surgical History: No Pertinent History Cardiac: No Pertinent History Respiratory: No Pertinent History Gastrointestinal: Cholecystectomy, Exploratory Laparoscopy Genitourinary: No Pertinent History Musculoskeletal: No Pertinent History, Amputation Female Surgical History: Section, Hysterectomy Other Surgical History: foot surgery, screw placed in left big toe, removal, and antibiotic bead placement. mult lt foot surgeries. LT BKA February 2019 - Social History Smoking Status: Current every day smoker How long have you smoked: years Exposure to second hand smoke: Yes Drug Use: none Patient Lives Alone: No - Female History Hx Last Menstrual Period: post - Nursing Vital Signs Nursing Vital Signs: Initial Vital Signs Temperature 97.5 F 09/12/19 19:32 Pulse Rate 70 09/12/19 19:32 Respiratory Rate 20 09/12/19 19:32 Blood Pressure 131/61 09/12/19 19:32 O2 Sat by Pulse Oximetry 100 09/12/19 19:32 Pain Scale Pain Intensity 0 - Physical Exam General Appearance: no apparent distress (Left BKA), alert Eye Exam: PERRL/EOMI, eyes nml inspection Ears, Nose, Throat Exam: normal ENT inspection, moist mucous membranes Neck Exam: normal inspection, non-tender, supple, full range of motion Respiratory Exam: normal breath sounds, lungs clear, No respiratory distress Cardiovascular Exam: regular rate/rhythm, normal heart sounds Gastrointestinal/Abdomen Exam: soft, No tenderness, No mass Back Exam: normal inspection, No CVA tenderness, No vertebral tenderness Extremity Exam: normal inspection, normal range of motion Neurologic Exam: alert, 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, cooperative, normal mood/affect, sensation nml, No motor deficits Skin Exam: normal color, warm, dry SpO2: 100 Ordered Tests: Active Orders 24 hr Category Date Time Status Construction Laborer STAT Care 09/12/19 19:41 Active EKG-ER Only STAT Care 09/12/19 19:40 Active IV Insertion STAT Care 09/12/19 19:40 Active Pulse Oximetry (ED) STAT Care 09/12/19 19:40 Active CHEST 2 VIEWS (PA AND LAT) Stat Exams 09/12/19 19:56 Taken BMP Stat Lab 09/12/19 20:10 Completed CBC W DIFF Stat Lab 09/12/19 20:10 Completed Hepatic Function Panel Stat Lab 09/12/19 20:10 Completed NT PRO BNP Stat Lab 09/12/19 20:10 Completed PROTIME WITH INR Stat Lab 09/12/19 20:10 Completed TROPONIN Q3H Lab 09/12/19 20:10 Completed TROPONIN Q3H Lab 09/12/19 22:45 Ordered TROPONIN Q3H Lab 09/13/19 01:45 Ordered TROPONIN Q3H Lab 09/13/19 04:45 Ordered TROPONIN Q3H Lab 09/13/19 07:45 Ordered Respiratory Therapy Assessment DAILY RT 09/12/19 20:22 Completed Medication Summary Generic Name Dose Route Start Last Admin Trade Name Freq PRN Reason Stop Dose Admin Azithromycin 500 mg in 250 mls @ 250 mls/hr 09/12/19 20:41 09/12/19 21:07 Zithromax 500 Mg/ 250 Ml Nacl Premix IV 09/12/19 21:40 250 ml/hr STAT STA 250 mls/hr Administration Discontinued Medications Generic Name Dose Route Start Last Admin Trade Name Freq PRN Reason Stop Dose Admin Albuterol/Ipratropium 3 ml 09/12/19 19:42 09/12/19 20:24 Duoneb 0.5-3 Mg/3 Ml Neb IH 09/12/19 19:43 3 ml STAT ONE Administration Albuterol/Ipratropium Confirm 09/12/19 20:23 Duoneb 0.5-3 Mg/3 Ml Neb Administered 09/12/19 20:24 Dose 3 ml IH .STK-MED ONE Aspirin 324 mg 09/12/19 19:40 09/12/19 19:59 Baby Aspirin 81 Mg Chew PO 09/12/19 19:41 324 mg STAT ONE Administration Aspirin Confirm 09/12/19 19:58 Baby Aspirin 81 Mg Chew Administered 09/12/19 19:59 Dose 324 mg .ROUTE .STK-MED ONE Ceftriaxone Sodium/Dextrose 1 g in 50 mls @ 100 mls/hr 09/12/19 20:40 20:50 Rocephin 1 Gm-D5w 50 Ml Bag IV 09/12/19 21:09 100 ml/hr STAT STA 100 mls/hr Administration Azithromycin Confirm 09/12/19 20:47 Zithromax 500 Mg/ 250 Ml Nacl Premix Administered 09/12/19 20:48 Dose 500 mg in 250 mls @ ud IV .STK-MED ONE Ceftriaxone Sodium/Dextrose Confirm 09/12/19 20:47 Rocephin 1 Gm-D5w 50 Ml Bag Administered 09/12/19 20:48 Dose 1 g in 50 mls @ ud IV .STK-MED ONE Methylprednisolone Sodium Succinate 125 mg 09/12/19 19:42 09/12/19 20:00 Solu-Medrol 125 Mg IV 09/12/19 19:43 125 mg STAT ONE Administration Methylprednisolone Sodium Succinate Confirm 09/12/19 19:58 Solu-Medrol 125 Mg Administered 09/12/19 19:59 Dose 125 mg .ROUTE .STK-MED ONE Lab/Rad Data: Laboratory Result Diagrams 09/12/19 20:10 09/12/19 20:10 Laboratory Results 09/12/19 09/12/19 09/12/19 Range/Units Unknown 20:10 20:10 WBC (4.0-10.5) K/mm3 RBC (4.1-5.4) M/mm3 Hgb (12.0-16.0) gm/dl Hct (35-47) % MCV (78-100) fl MCH (26-32) pg MCHC (32-36) g/dl RDW (11.5-14.0) % Plt Count (150-450) K/mm3 MPV (7.5-11.0) fl Gran % (36.0-66.0) % Eos # (Auto) (0-0.5) Absolute Lymphs (auto) (1.0-4.6) Absolute Monos (auto) (0.0-1.3) Lymphocytes % (24.0-44.0) % Monocytes % (0.0-12.0) % Eosinophils % (0.00-5.0) % Basophils % (0.0-0.4) % Absolute Granulocytes (1.4-6.9) Basophils # (0-0.4) PT 14.4 H (9.95-12.35) SECONDS INR 1.27 (0.8-3.0) Sodium (137-145) mmol/L Potassium (3.5-5.1) mmol/L Chloride (98-107) mmol/L Carbon Dioxide (22-30) mmol/L Anion Gap (5-15) MEQ/L BUN (7-17) mg/dL Creatinine (0.52-1.04) mg/dL Estimated GFR ML/MIN Glucose (74-106) mg/dL Calcium (8.4-10.2) mg/dL Total Bilirubin (0.2-1.3) mg/dL Direct Bilirubin (0.0-0.4) mg/dL AST (14-36) U/L ALT (0-35) U/L Alkaline Phosphatase (38-126) U/L Troponin I < 0.012 (0.000-0.034) ng/mL NT-Pro-B Natriuret Pep (0-900) pg/mL Serum Total Protein (6.3-8.2) g/dL Albumin (3.5-5.0) g/dL Influenza Type A Ag NEGATIVE (NEGATIVE) Influenza Type B Ag NEGATIVE (NEGATIVE) RSV (PCR) NEGATIVE (Negative) 09/12/19 09/12/19 Range/Units 20:10 20:10 WBC 11.8 H (4.0-10.5) K/mm3 RBC 3.18 L (4.1-5.4) M/mm3 Hgb 8.4 L (12.0-16.0) gm/dl Hct 25.5 L (35-47) % MCV 80.2 (78-100) fl MCH 26.4 (26-32) pg MCHC 32.9 (32-36) g/dl RDW 16.0 H (11.5-14.0) % Plt Count 217 (150-450) K/mm3 MPV 9.5 (7.5-11.0) fl Gran % 82.8 H (36.0-66.0) % Eos # (Auto) 0.15 (0-0.5) Absolute Lymphs (auto) 1.34 (1.0-4.6) Absolute Monos (auto) 0.51 (0.0-1.3) Lymphocytes % 11.3 L (24.0-44.0) % Monocytes % 4.3 (0.0-12.0) % Eosinophils % 1.3 (0.00-5.0) % Basophils % 0.3 (0.0-0.4) % Absolute Granulocytes 9.80 H (1.4-6.9) Basophils # 0.03 (0-0.4) PT (9.95-12.35) SECONDS INR (0.8-3.0) Sodium 124 L (137-145) mmol/L Potassium 5.1 (3.5-5.1) mmol/L Chloride 93 L (98-107) mmol/L Carbon Dioxide 25 (22-30) mmol/L Anion Gap 10.7 (5-15) MEQ/L BUN 31 H (7-17) mg/dL Creatinine 1.48 H (0.52-1.04) mg/dL Estimated GFR 39.4 ML/MIN Glucose 86 (74-106) mg/dL Calcium 8.1 L (8.4-10.2) mg/dL Total Bilirubin 0.40 (0.2-1.3) mg/dL Direct Bilirubin 0.4 (0.0-0.4) mg/dL AST 30 (14-36) U/L ALT 12 (0-35) U/L Alkaline Phosphatase 203 H (38-126) U/L Troponin I (0.000-0.034) ng/mL NT-Pro-B Natriuret Pep 1330 H (0-900) pg/mL Serum Total Protein 6.7 (6.3-8.2) g/dL Albumin 2.7 L (3.5-5.0) g/dL Influenza Type A Ag (NEGATIVE) Influenza Type B Ag (NEGATIVE) RSV (PCR) (Negative) - Progress Progress: improved Air Movement: good Progress Note: 09/12/19 19:48 DDx. MS, STEMI, PNA - We obtain basic labs, fluids, EKG, troponin, chest x-ray - EKG shows no ST changes - my read. See full read below. - O2 saturations consistently greater than 95%. 09/12/19 21:33 Patient found to be in CHF exacerbation, possible PNA, and hyponatermia. Given this she will need cardiology evaluation and further monitoring. We will transfer to [facility] for cardiology evaluation. Accepting doctor is Dr. Mejia of the ER. Antibiotics given: Yes - Departure Departure Disposition: Transfer Clinical Impression: CHF (congestive heart failure), PNA (pneumonia), Hyponatremia Condition: Stable Critical Care Time: No Referrals: TERRY TRONCOSO [Primary Care Provider] - Instructions: Heart Failure
[2019-09-12] MEDS ORDERED: BABY ASPIRIN 81 MG CHEW ONE (19:58)
[2019-09-12] MEDS ORDERED: solu-MEDROL 125 MG ONE (19:58)
[2019-09-12 20:11] LABS: BASOPHIL % 0.3 % (0.0-0.4); Basophil (Absolute #) 0.03 (0-0.4); Eosinophil % 1.3 % (0.00-5.0); Eosinophil (Absolute #) 0.15 (0-0.5); Hematocrit 25.5 % (35-47); Hemoglobin 8.4 gm/dl (12.0-16.0); Lymphocyte (Absolute #) 1.34 (1.0-4.6); Lymphocytes % 11.3 % (24.0-44.0); Mean Cell Volume 80.2 fl (78-100); Mean Corpuscular Hemoglobin 26.4 pg (26-32); Mean Corpuscular Hgb Concent. 32.9 g/dl (32-36); Mean Platelet Volume 9.5 fl (7.5-11.0); Monocyte (Absolute #) 0.51 (0.0-1.3); Monocytes % 4.3 % (0.0-12.0); Neutrophil % 82.8 % (36.0-66.0); Platelet Count 217 K/mm3 (150-450); Red Blood Count 3.18 M/mm3 (4.1-5.4); White Blood Count 11.8 K/mm3 (4.0-10.5)
[2019-09-12 20:21] LABS: INR 1.27 (0.8-3.0); PROTIME 14.4 SECONDS (9.95-12.35)
[2019-09-12 20:34] LABS: ALBUMIN 2.7 g/dL (3.5-5.0); ANION GAP 10.7 MEQ/L (5-15); BILIRUBIN,TOTAL 0.4 mg/dL (0.2-1.3); Calcium 8.1 mg/dL (8.4-10.2); Creatinine 1 1.48 mg/dL (0.52-1.04); Direct Bilirubin 0.4 mg/dL (0.0-0.4); Potassium 5.1 mmol/L (3.5-5.1); Total Protein 6.7 g/dL (6.3-8.2)
[2019-09-12] MEDS ORDERED: ROCEPHIN 1 Gm-D5w 50 ml Bag** 1 G/50 ML IVPB IV STA (20:40)
[2019-09-12] MEDS ORDERED: Zithromax 500 MG/ 250 ML NaCl Premix 500 MG/250 ML IVPB IV STA (20:41)
[2019-09-12] MEDS ORDERED: ROCEPHIN 1 Gm-D5w 50 ml Bag** 1 G/50 ML IVPB IV ONE (20:47)
[2019-09-12] MEDS ORDERED: Zithromax 500 MG/ 250 ML NaCl Premix 500 MG/250 ML IVPB IV ONE (20:47)
[2019-09-12 21:00] LABS: INFLUENZA A NEGATIVE (NEGATIVE); INFLUENZA B NEGATIVE (NEGATIVE); RESPIRATORY SYNCTIAL VIRUS NEGATIVE (Negative)
[2019-09-12 21:02] VITALS: BP 94/53; PULSE 69
[2019-09-12 21:35] VITALS: O2SAT 100
--- NOTE | 2019-09-13 08:40 | XRAY ---
Indication: Cough. Flu retention. Comparison: August 05, 2019. PA/lateral chest demonstrates mild worsening diffuse bilateral interstitial alveolar opacities again right greater than left with new tiny right effusion. Heart is not enlarged. Bony thorax intact.
== END 2019-09-12 22:14 | disposition short-term general hospital (02) ==
LOC: ED 19:23
DX: I50.9 Heart failure, unspecified (principal); J18.9 Pneumonia, unspecified organism; E87.1 Hypo-osmolality and hyponatremia; I10 Essential (primary) hypertension; J44.9 Chronic obstructive pulmonary disease, unspecified; E11.9 Type 2 diabetes mellitus without complications; Z79.899 Other long term (current) drug therapy; J45.909 Unspecified asthma, uncomplicated
CPT/HCPCS: 36000; 36415; 71046; 80048; 80076; 83880; 84484; 85025; 85610; 87631; 93005; 93041; 94640; 94760; 96365; 96367; 96374; 99285; J0456; J0696; J2930; A9270-GY

== ENCOUNTER 2019-09-27 11:07 | Emergency (ER) | payer MEDICARE ==
[2019-09-27] MEDS ORDERED: NITRO-BID 2% UD PACKETS TOP ONE (11:36)
[2019-09-27] MEDS ORDERED: BABY ASPIRIN 81 MG CHEW PO ONE (11:36)
[2019-09-27] MEDS ORDERED: DUONEB 0.5-3 MG/3 ml Neb IH ONE ×2 (11:40→11:56)
[2019-09-27] MEDS ORDERED: BABY ASPIRIN 81 MG CHEW ONE (11:45)
[2019-09-27] MEDS ORDERED: NITRO-BID 2% UD PACKETS ONE (11:45)
--- NOTE | 2019-09-27 11:49 | ERPHSYRPT ---
- History of Present Illness Time Seen by Provider: 09/27/19 11:21 Historian: patient Exam Limitations: no limitations Patient Subjective Stated Complaint: Swelling Triage Nursing Assessment: Patient brought back to ED via w/c and transferred self to bed. Patient A+O X 3. Patient's skin pink, warm and dry. Patient complains of swelling to right lower extremity and abdomen. Patient's right leg noted to have +1 pitting edema to right lower leg. Patient's lungs clear a/p manohar. Patient denies pain or discomfort. Physician History: 54 years old female with history of hypertension, hyperlipidemia, diabetes mellitus, congestive heart failure, liver cirrhosis with ascites needing paracentesis intermittently last one 3 weeks ago is here with cough , SOB for 1 week and substernal intermittent pressure for 2 days. reports as if she is having an elephant sitting on her chest. no fever or chills. no h/o CAD. Timing/Duration: day(s) (2), intermittent, gradual onset, worse Activities at Onset: none Quality: fullness, pressure Location: substernal Chest Pain Radiation: no radiation Severity of Pain-Max: moderate Severity of Pain-Current: moderate Modifying Factors: Improves With: nothing Associated Symptoms: denies symptoms Nitro Today/Relief: no nitro taken today Aspirin Treatment Today: 81 mg x 4 Allergies/Adverse Reactions: adhesive tape Allergy (Mild, Verified 09/27/19 11:14) Hives bee stings Allergy (Mild, Uncoded 09/27/19 11:14) Hives Home Medications: Duloxetine HCl 30 mg [Cymbalta 30 MG Capsule] 60 mg PO HS 11/17/12 [ History] Albuterol Sulfate [Proair Hfa] 2 puff IH Q4HPRN PRN 04/21/15 [History] Budesonide/Formoterol Fumarate [Symbicort 160-4.5 Mcg Inhaler] 2 puff IH BID [History] Omeprazole 20 MG [Prilosec 20 mg] 20 mg PO DAILY 04/21/15 [History] Pravastatin Sodium [Pravachol] 10 mg PO HS 02/07/16 [History] Gabapentin [Gralise] 600 mg PO TID 11/11/16 [History] Docusate Sodium 100 mg [Colace 100 MG] 100 mg PO HS 01/18/19 [History] Ergocalciferol (Vitamin D2) [Vitamin D] 50,000 units PO UD 01/18/19 [History] Ferrous Sulfate 325 mg PO BID 01/18/19 [History] Hydroxyzine HCl 10 mg PO BID 01/18/19 [History] Levothyroxine Sodium 25 Mcg [Synthroid 25 Mcg] 25 mcg PO DAILY 01/18/19 [ History] Insulin Glargine [Lantus Insulin] 30 units SQ DAILY 09/27/19 [History] Metoprolol Tartrate 25 mg [Lopressor 25MG Tab] 1 tab PO BID 09/27/19 [ History] Hx Tetanus, Diphtheria Vaccination/Date Given: Yes Hx Influenza Vaccination/Date Given: Yes Hx Pneumococcal Vaccination/Date Given: Yes Immunizations Up to Date: Yes - Review of Systems Constitutional: No Symptoms Eyes: No Symptoms Ears, Nose, & Throat: No Symptoms Respiratory: Cough, Dyspnea, Wheezing Cardiac: Chest Pain Abdominal/Gastrointestinal: No Symptoms Genitourinary Symptoms: No Symptoms Musculoskeletal: No Symptoms Skin: No Symptoms Neurological: No Symptoms Psychological: No Symptoms Endocrine: No Symptoms Hematologic/Lymphatic: No Symptoms Immunological/Allergic: No Symptoms - Past Medical History Pertinent Past Medical History: Yes Neurological History: No Pertinent History ENT History: No Pertinent History Cardiac History: Hypertension Respiratory History: Asthma, COPD, Pneumonia Endocrine Medical History: Diabetes Type II Musculoskeletal History: Fractures GI Medical History: GERD, Other History: No Pertinent History Psycho-Social History: Anxiety, Depression Female Reproductive Disorders: No Pertinent History Other Medical History: left ankle fx with mult surgeries, in February 2019 bka,. ascites. fatty liver - Past Surgical History Past Surgical History: Yes Neuro Surgical History: No Pertinent History Cardiac: No Pertinent History Respiratory: No Pertinent History Gastrointestinal: Cholecystectomy, Exploratory Laparoscopy Genitourinary: No Pertinent History Musculoskeletal: No Pertinent History, Amputation Female Surgical History: Section, Hysterectomy Other Surgical History: foot surgery, screw placed in left big toe, removal, and antibiotic bead placement. mult lt foot surgeries. LT BKA February 2019 - Social History Smoking Status: Current some day smoker How long have you smoked: years Exposure to second hand smoke: Yes Drug Use: none Patient Lives Alone: No - Female History Hx Last Menstrual Period: hysterecomy Hx Now: No - Nursing Vital Signs Nursing Vital Signs: Initial Vital Signs Temperature 97.9 F 09/27/19 11:14 Pulse Rate 86 09/27/19 11:14 Respiratory Rate 18 09/27/19 11:14 Blood Pressure 150/71 09/27/19 11:14 O2 Sat by Pulse Oximetry 97 09/27/19 11:14 Pain Scale Pain Intensity 5 - Physical Exam General Appearance: no apparent distress Eye Exam: PERRL/EOMI, eyes nml inspection Ears, Nose, Throat Exam: normal ENT inspection Neck Exam: normal inspection, non-tender, supple, full range of motion Respiratory Exam: normal breath sounds, crackles/rales, wheezing, No chest tenderness Cardiovascular Exam: regular rate/rhythm, normal heart sounds Gastrointestinal/Abdomen Exam: soft, normal bowel sounds Pelvic Exam: not done Back Exam: normal inspection Extremity Exam: normal inspection Neurologic Exam: alert, 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, cooperative, 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 nml as tested, normal mood/affect Skin Exam: normal color SpO2 Interpretation: normal SpO2: 97 O2 Delivery: Room Air - Course Nursing assessment & vital signs reviewed: Yes EKG Interpreted by Me: RATE (74), NORMAL AXIS, NORMAL INTERVALS, NORMAL QRS Ordered Tests: Active Orders 24 hr Category Date Time Status Unemployment Claims Adjudicator STAT Care 09/27/19 11:38 Active EKG-ER Only STAT Care 09/27/19 11:36 Active IV Insertion STAT Care 09/27/19 11:36 Active CHEST 2 VIEWS (PA AND LAT) Stat Exams 09/27/19 11:38 Completed BLOOD CULTURE Stat Lab 09/27/19 Ordered CBC W DIFF Stat Lab 09/27/19 12:00 Completed CK-Creatinine Phosphokinase Stat Lab 09/27/19 12:00 Completed CMP Stat Lab 09/27/19 12:00 Completed MAGNESIUM Stat Lab 09/27/19 12:00 Completed NT PRO BNP Stat Lab 09/27/19 12:00 Completed PROTIME WITH INR Stat Lab 09/27/19 12:00 Completed TROPONIN Q3H Lab 09/27/19 12:10 Completed TROPONIN Q3H Lab 09/27/19 14:45 Ordered TROPONIN Q3H Lab 09/27/19 17:45 Ordered TROPONIN Q3H Lab 09/27/19 20:45 Ordered TROPONIN Q3H Lab 09/27/19 23:45 Ordered UA W/RFX UR CULTURE Stat Lab 09/27/19 11:37 Uncollected Peak Expiratory Flow Rate ONCE RT 09/27/19 12:01 Completed Respiratory Therapy Assessment DAILY RT 09/27/19 12:01 Completed Medication Summary Generic Name Dose Route Start Last Admin Trade Name Allan PRN Reason Stop Dose Admin Sodium Chloride 1,000 mls @ 100 mls/hr 09/27/19 14:00 09/27/19 14:17 Sodium Chloride 0.9% 1000 Ml IV 10/27/19 13:59 100 mls/hr .Q10H TISHA Administration Ceftriaxone Sodium/Dextrose 1 g in 50 mls @ 100 mls/hr 09/27/19 14:06 Rocephin 1 Gm-D5w 50 Ml Bag IV 09/27/19 14:35 STAT STA Azithromycin 500 mg in 250 mls @ 250 mls/hr 09/27/19 14:06 Zithromax 500 Mg/ 250 Ml Nacl Premix IV 09/27/19 15:05 STAT STA Discontinued Medications Generic Name Dose Route Start Last Admin Trade Name Allan CALDERAN Reason Stop Dose Admin Albuterol/Ipratropium 3 ml 09/27/19 11:40 09/27/19 11:58 Duoneb 0.5-3 Mg/3 Ml Neb IH 09/27/19 11:41 3 ml STAT ONE Administration Albuterol/Ipratropium Confirm 09/27/19 11:56 Duoneb 0.5-3 Mg/3 Ml Neb Administered 09/27/19 11:57 Dose 3 ml IH .STK-MED ONE Aspirin 324 mg 09/27/19 11:36 09/27/19 11:46 Baby Aspirin 81 Mg Chew PO 09/27/19 11:37 324 mg STAT ONE Administration Aspirin Confirm 09/27/19 11:45 Baby Aspirin 81 Mg Chew Administered 09/27/19 11:46 Dose 243 mg .ROUTE .STK-MED ONE Insulin Aspart 10 unit 09/27/19 13:53 09/27/19 14:16 Novolog Insulin IV 09/27/19 13:54 10 unit STAT ONE Administration Insulin Aspart Confirm 09/27/19 14:13 Novolog Insulin Administered 09/27/19 14:14 Dose 10 unit .ROUTE .STK-MED ONE Nitroglycerin 0.5 gm 09/27/19 11:36 09/27/19 11:47 Nitro-Bid 2% Ud Packets TOP 09/27/19 11:37 0.5 gm STAT ONE Administration Nitroglycerin Confirm 09/27/19 11:45 Nitro-Bid 2% Ud Packets Administered 09/27/19 11:46 Dose 1 gm .ROUTE .STK-MED ONE Sodium Bicarbonate 50 meq 09/27/19 13:54 09/27/19 14:15 Sodium Bicarbonate 50 Meq/50 Ml Vial IV 09/27/19 13:55 50 meq 1XONLY STA Administration Sodium Bicarbonate Confirm 09/27/19 14:14 Sodium Bicarbonate 50 Meq/50 Ml Abboject Administered 09/27/19 14:15 Dose 50 meq IV .STK-MED ONE Sodium Polystyrene Sulfonate 30 g 09/27/19 13:51 09/27/19 14:17 Kayexylate 15 Gm/60 Ml PO 09/27/19 13:52 30 g STAT ONE Administration Sodium Polystyrene Sulfonate Confirm 09/27/19 14:13 Kayexylate 15 Gm/60 Ml Administered 09/27/19 14:14 Dose 30 g .ROUTE .STK-MED ONE Lab/Rad Data: Laboratory Result Diagrams 09/27/19 12:00 09/27/19 12:00 Laboratory Results 09/27/19 09/27/19 09/27/19 Range/Units 12:10 12:00 12:00 WBC (4.0-10.5) K/mm3 RBC (4.1-5.4) M/mm3 Hgb (12.0-16.0) gm/dl Hct (35-47) % MCV (78-100) fl MCH (26-32) pg MCHC (32-36) g/dl RDW (11.5-14.0) % Plt Count (150-450) K/mm3 MPV (7.5-11.0) fl Gran % (36.0-66.0) % Eos # (Auto) (0-0.5) Absolute Lymphs (auto) (1.0-4.6) Absolute Monos (auto) (0.0-1.3) Lymphocytes % (24.0-44.0) % Monocytes % (0.0-12.0) % Eosinophils % (0.00-5.0) % Basophils % (0.0-0.4) % Absolute Granulocytes (1.4-6.9) Basophils # (0-0.4) PT 13.3 H (9.95-12.35) SECONDS INR 1.17 (0.8-3.0) Sodium 125 L (137-145) mmol/L Potassium 5.7 H (3.5-5.1) mmol/L Chloride 95 L (98-107) mmol/L Carbon Dioxide 22 (22-30) mmol/L Anion Gap 13.2 (5-15) MEQ/L BUN 34 H (7-17) mg/dL Creatinine 1.08 H (0.52-1.04) mg/dL Estimated GFR 56.6 ML/MIN Glucose 201 H (74-106) mg/dL Calcium 8.8 (8.4-10.2) mg/dL Magnesium 1.6 (1.6-2.3) mg/dL Total Bilirubin 0.40 (0.2-1.3) mg/dL AST 25 (14-36) U/L ALT 14 (0-35) U/L Alkaline Phosphatase 210 H (38-126) U/L Creatine Kinase 27 L (30-135) U/L Troponin I < 0.012 (0.000-0.034) ng/mL NT-Pro-B Natriuret Pep 630 (0-900) pg/mL Serum Total Protein 7.5 (6.3-8.2) g/dL Albumin 3.3 L (3.5-5.0) g/dL 09/27/19 Range/Units 12:00 WBC 8.5 (4.0-10.5) K/mm3 RBC 3.09 L (4.1-5.4) M/mm3 Hgb 8.5 L (12.0-16.0) gm/dl Hct 25.3 L (35-47) % MCV 81.9 (78-100) fl MCH 27.5 (26-32) pg MCHC 33.6 (32-36) g/dl RDW 17.5 H (11.5-14.0) % Plt Count 181 (150-450) K/mm3 MPV 9.7 (7.5-11.0) fl Gran % 78.6 H (36.0-66.0) % Eos # (Auto) 0.17 (0-0.5) Absolute Lymphs (auto) 1.20 (1.0-4.6) Absolute Monos (auto) 0.42 (0.0-1.3) Lymphocytes % 14.1 L (24.0-44.0) % Monocytes % 4.9 (0.0-12.0) % Eosinophils % 2.0 (0.00-5.0) % Basophils % 0.4 (0.0-0.4) % Absolute Granulocytes 6.71 (1.4-6.9) Basophils # 0.03 (0-0.4) PT (9.95-12.35) SECONDS INR (0.8-3.0) Sodium (137-145) mmol/L Potassium (3.5-5.1) mmol/L Chloride (98-107) mmol/L Carbon Dioxide (22-30) mmol/L Anion Gap (5-15) MEQ/L BUN (7-17) mg/dL Creatinine (0.52-1.04) mg/dL Estimated GFR ML/MIN Glucose (74-106) mg/dL Calcium (8.4-10.2) mg/dL Magnesium (1.6-2.3) mg/dL Total Bilirubin (0.2-1.3) mg/dL AST (14-36) U/L ALT (0-35) U/L Alkaline Phosphatase (38-126) U/L Creatine Kinase (30-135) U/L Troponin I (0.000-0.034) ng/mL NT-Pro-B Natriuret Pep (0-900) pg/mL Serum Total Protein (6.3-8.2) g/dL Albumin (3.5-5.0) g/dL - Progress Progress: re-examined Air Movement: fair Progress Note: 89 years old is evaluated for chest pressure and swelling along with some shortness of breath. She is given a breathing treatment, aspirin and nitro paste, and evaluation feeling better. EKG did not show any acute ischemic changes. Unremarkable initial troponin. Chest x-ray showed some opacity suspicious for pneumonia and started on antibiotics. Chemistry showed hyperkalemia of 5.7 and dextrose/insulin/bicarbonate/Kayexalate given. Also has hyponatremia of 125 and started her on gentle hydration to light any fluid overload. Discussed with Dr. Troncoso for admission, who has discussed with Dr. jacob, recommended transfer to [facility] as she recently left there. Discussed with Dr. Abdirizak Perez and patient is accepted for transfer. Plan discussed with patient which she seemed understanding. 09/27/19 14:28 Blood Culture(s) Obtained: No Antibiotics given: No Discussed with Dr.: Faheem Will see patient in: hospital (full admit) Counseled pt/family regarding: lab results, diagnosis, rad results, smoking cessation - Departure Departure Disposition: In-patient Admission, Transfer Clinical Impression: Chest pain, rule out acute myocardial infarction, Hyponatremia, Anemia of chronic disease Pneumonia Qualifiers: Pneumonia type: due to unspecified organism Laterality: unspecified laterality Lung location: unspecified part of lung Qualified Code(s): J18.9 - Pneumonia, unspecified organism Condition: Stable Critical Care Time: Yes Critical Care Time(excluding separately billable procedures): Critical 30-74 mins Referrals: TERRY TRONCOSO [Primary Care Provider] -
[2019-09-27 12:11] LABS: Absolute Neutrophil Ct (ANC) 6.71 (1.4-6.9); BASOPHIL % 0.4 % (0.0-0.4); Basophil (Absolute #) 0.03 (0-0.4); Eosinophil (Absolute #) 0.17 (0-0.5); Hematocrit 25.3 % (35-47); Hemoglobin 8.5 gm/dl (12.0-16.0); Lymphocytes % 14.1 % (24.0-44.0); Mean Cell Volume 81.9 fl (78-100); Mean Corpuscular Hemoglobin 27.5 pg (26-32); Mean Corpuscular Hgb Concent. 33.6 g/dl (32-36); Mean Platelet Volume 9.7 fl (7.5-11.0); Monocyte (Absolute #) 0.42 (0.0-1.3); Monocytes % 4.9 % (0.0-12.0); Neutrophil % 78.6 % (36.0-66.0); Platelet Count 181 K/mm3 (150-450); Red Blood Count 3.09 M/mm3 (4.1-5.4); Red Cell Distribution Width 17.5 % (11.5-14.0); White Blood Count 8.5 K/mm3 (4.0-10.5)
[2019-09-27 12:19] LABS: INR 1.17 (0.8-3.0); PROTIME 13.3 SECONDS (9.95-12.35)
[2019-09-27 12:39] LABS: ALBUMIN 3.3 g/dL (3.5-5.0); ANION GAP 13.2 MEQ/L (5-15); BILIRUBIN,TOTAL 0.4 mg/dL (0.2-1.3); Calcium 8.8 mg/dL (8.4-10.2); Creatinine 1 1.08 mg/dL (0.52-1.04); MAGNESIUM 1.6 mg/dL (1.6-2.3); Potassium 5.7 mmol/L (3.5-5.1); Total Protein 7.5 g/dL (6.3-8.2)
--- NOTE | 2019-09-27 12:39 | XRAY ---
Indication: Chest heaviness and persistent cough. COPD. Comparison: September 12, 2019. PA/lateral chest demonstrates minimal improving diffuse bilateral interstitial alveolar opacities and tiny right effusion. Heart is not enlarged. No new cardiopulmonary abnormalities.
[2019-09-27] MEDS ORDERED: Kayexylate 15 GM/60 ML PO ONE (13:51)
[2019-09-27] MEDS ORDERED: NovoLOG Insulin IV ONE (13:53)
[2019-09-27] MEDS ORDERED: Sodium Bicarbonate 50 MEQ/50 ML VIAL IV STA (13:54)
[2019-09-27] MEDS ORDERED: Sodium Chloride 0.9% 1000 ML 1,000 ML IV SCH (14:00)
[2019-09-27] MEDS ORDERED: Zithromax 500 MG/ 250 ML NaCl Premix 500 MG/250 ML IVPB IV STA (14:06)
[2019-09-27] MEDS ORDERED: ROCEPHIN 1 Gm-D5w 50 ml Bag** 1 G/50 ML IVPB IV STA (14:06)
[2019-09-27] MEDS ORDERED: Kayexylate 15 GM/60 ML ONE (14:13)
[2019-09-27] MEDS ORDERED: NovoLOG Insulin ONE (14:13)
[2019-09-27] MEDS ORDERED: Sodium Chloride 0.9% 1000 ML 1,000 ML ONE (14:13)
[2019-09-27] MEDS ORDERED: SODIUM BICARBONATE 50 MEQ/50 ML ABBOJECT IV ONE (14:14)
[2019-09-27 14:29] VITALS: BP 122/76
[2019-09-27] MEDS ORDERED: ROCEPHIN 1 Gm-D5w 50 ml Bag** 1 G/50 ML IVPB IV ONE (14:33)
[2019-09-27 14:53] VITALS: PULSE 87; O2SAT 98
[2019-09-27] MEDS ORDERED: Zithromax 500 MG/ 250 ML NaCl Premix 500 MG/250 ML IVPB IV ONE (15:29)
[2019-09-27 16:09] LABS: Appearance CLEAR (CLEAR); Bacteria RARE /HPF (NEGATIVE); Bilirubin NEGATIVE (NEGATIVE); Blood SMALL Ery/ul (0-5); Glucose NEGATIVE (NEGATIVE); Ketones NEGATIVE (NEGATIVE); Leukocyte Esterase TRACE (NEGATIVE); Nitrite NEGATIVE (NEGATIVE); Protein,Urine Dip 30 (Negative); RBC 0-2 /HPF (0-2); Specific Gravity 1.009 (1.005-1.025); Urobilinogen NEGATIVE mg/dL (0-1)
== END 2019-09-27 16:01 | disposition short-term general hospital (02) ==
LOC: ED 11:07
DX: R07.9 Chest pain, unspecified (principal); E87.1 Hypo-osmolality and hyponatremia; D63.8 Anemia in other chronic diseases classified elsewhere
CPT/HCPCS: 36000; 36415; 71046; 80053; 81001; 82550; 83735; 83880; 84484; 85025; 85610; 87040; 87086; 93005; 93041; 94150; 94640; 96365; 96367; 96374; 96375; 99285; 99291; J0456; J0696; A9270-GY

== ENCOUNTER 2019-10-14 17:57 | Emergency (ER) | payer MEDICARE ==
--- NOTE | 2019-10-14 18:28 | ERPHSYRPT ---
- History of Present Illness Time Seen by Provider: 10/14/19 18:10 Source: patient Exam Limitations: no limitations Patient Subjective Stated Complaint: states increasing sob over past couple of days. hx of fatty liver with ascites. states she has abd drained every two weeks and its been two weeks since she was drained. also has recent cough. Triage Nursing Assessment: to room per w/c. skin w/d, sallow. resp nonlabored , diminshed breath sounds throughout. sat 99% room air. Physician History: This is a 54-year-old white female with history of hypertension, diabetes, chronic hyponatremia, anemia of chronic disease, stage III kidney disease, COPD , cirrhosis of the liver with recurrent ascites, and congestive heart failure who presents with increasing shortness of breath over the last 2 days. A little over 3 weeks ago, the patient underwent a paracentesis of the ascites at [facility]. However, the patient is fine staying here to have this arranged for her at our facility. Patient denies significant chest pain at this time. Patient was seen here in this facility on September 27, 2019 for the same issue. She was then sent to [facility] for the scheduling of a paracentesis. Again, the patient is fine undergoing the same procedure at our facility Timing/Duration: day(s) (2) Activities at Onset: none Severity of Dyspnea-Max: mild Severity of Dyspnea-Current: mild Possible Cause: frequent episodes Modifying Factors: Improves With: coughing Associated Symptoms: cough, wheezing Allergies/Adverse Reactions: adhesive tape Allergy (Mild, Verified 10/14/19 18:05) Hives bee stings Allergy (Mild, Uncoded 10/14/19 18:07) Hives Home Medications: Duloxetine HCl 30 mg [Cymbalta 30 MG Capsule] 60 mg PO HS 11/17/12 [ History] Albuterol Sulfate [Proair Hfa] 2 puff IH Q4HPRN PRN 04/21/15 [History] Omeprazole 20 MG [Prilosec 20 mg] 20 mg PO DAILY 04/21/15 [History] Pravastatin Sodium [Pravachol] 10 mg PO HS 02/07/16 [History] Gabapentin [Gralise] 600 mg PO TID 11/11/16 [History] Docusate Sodium 100 mg [Colace 100 MG] 100 mg PO HS 01/18/19 [History] Ergocalciferol (Vitamin D2) [Vitamin D] 50,000 units PO UD 01/18/19 [History] Ferrous Sulfate 325 mg PO BID 01/18/19 [History] Hydroxyzine HCl 10 mg PO BID 01/18/19 [History] Levothyroxine Sodium 25 Mcg [Synthroid 25 Mcg] 25 mcg PO DAILY 01/18/19 [ History] Insulin Glargine [Lantus Insulin] 30 units SQ DAILY 09/27/19 [History] Metoprolol Tartrate 25 mg [Lopressor 25MG Tab] 1 tab PO BID 09/27/19 [ History] Tiotropium [place] [Spiriva Respimat] 2 ea IH DAILY 10/14/19 [History] Hx Tetanus, Diphtheria Vaccination/Date Given: Yes Hx Influenza Vaccination/Date Given: Yes Hx Pneumococcal Vaccination/Date Given: Yes - Review of Systems Constitutional: No Symptoms Eyes: No Symptoms Ears, Nose, & Throat: No Symptoms Respiratory: Cough, Dyspnea, Wheezing Cardiac: No Symptoms Abdominal/Gastrointestinal: Other (abd distension) Genitourinary Symptoms: No Symptoms Musculoskeletal: No Symptoms Skin: No Symptoms Neurological: No Symptoms Psychological: No Symptoms Endocrine: No Symptoms Hematologic/Lymphatic: No Symptoms Immunological/Allergic: No Symptoms All Other Systems: Reviewed and Negative - Past Medical History Pertinent Past Medical History: Yes Neurological History: No Pertinent History ENT History: No Pertinent History Cardiac History: Hypertension Respiratory History: Asthma, COPD, Pneumonia Endocrine Medical History: Diabetes Type II Musculoskeletal History: Fractures GI Medical History: GERD, Other History: No Pertinent History Psycho-Social History: Anxiety, Depression Female Reproductive Disorders: No Pertinent History Other Medical History: left ankle fx with mult surgeries, in February 2019 bka,. ascites. fatty liver - Past Surgical History Past Surgical History: Yes Neuro Surgical History: No Pertinent History Cardiac: No Pertinent History Respiratory: No Pertinent History Gastrointestinal: Cholecystectomy, Exploratory Laparoscopy Genitourinary: No Pertinent History Musculoskeletal: No Pertinent History, Amputation Female Surgical History: Section, Hysterectomy Other Surgical History: foot surgery, screw placed in left big toe, removal, and antibiotic bead placement. mult lt foot surgeries. LT BKA February 2019 - Social History Smoking Status: Current every day smoker How long have you smoked: 34 Exposure to second hand smoke: No Drug Use: none Patient Lives Alone: No - Female History Hx Now: No - Nursing Vital Signs Nursing Vital Signs: Initial Vital Signs Temperature 98.2 F 10/14/19 17:58 Pulse Rate 91 H 10/14/19 17:58 Respiratory Rate 18 10/14/19 17:58 Blood Pressure 156/70 10/14/19 17:58 O2 Sat by Pulse Oximetry 99 10/14/19 17:58 Pain Scale Pain Intensity 0 - Physical Exam General Appearance: no apparent distress, alert, anxiety Eye Exam: PERRL/EOMI, eyes nml inspection Ears, Nose, Throat Exam: hearing grossly normal, normal ENT inspection, normal pharynx Neck Exam: normal inspection, non-tender, supple, full range of motion Respiratory Exam: airway intact, wheezing, No chest tenderness, No respiratory distress Cardiovascular/Chest Exam: normal heart sounds, regular rate/rhythm, murmur, normal peripheral pulses Abdominal/Gastrointestinal Exam: distention, other (ascites) Rectal Exam: not done Extremity Exam: non-tender (left bka), pelvis stable Neurologic Exam: alert, 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, cooperative, tile setter II-XII nml as tested, normal mood/affect Skin Exam: normal color, warm, dry Lymphatic Exam: No adenopathy SpO2 Interpretation: normal SpO2: 99 O2 Delivery: Room Air - Course Nursing assessment & vital signs reviewed: Yes EKG Interpreted by Me: RATE (89), Sinus Rhythm, NORMAL AXIS, NORMAL INTERVALS, NORMAL QRS, Other (no sig change from comparison ekg date09/27/2019) Ordered Tests: Active Orders 24 hr Category Date Time Status Cuff Maker STAT Care 10/14/19 18:28 Active EKG-ER Only STAT Care 10/14/19 18:27 Active IV Insertion STAT Care 10/14/19 18:27 Active Pulse Oximetry (ED) STAT Care 10/14/19 18:27 Active CHEST 1 VIEW (PORTABLE) Stat Exams 10/14/19 18:28 Ordered CBC W DIFF Stat Lab 10/14/19 18:43 Completed CMP Stat Lab 10/14/19 18:43 Completed Lactic Acid Stat Lab 10/14/19 19:00 Completed NT PRO BNP Stat Lab 10/14/19 18:43 Completed PROTIME WITH INR Stat Lab 10/14/19 18:43 Completed TROPONIN Q3H Lab 10/14/19 18:43 Completed TROPONIN Q3H Lab 10/14/19 21:30 Ordered TROPONIN Q3H Lab 10/15/19 00:30 Ordered TROPONIN Q3H Lab 10/15/19 03:30 Ordered TROPONIN Q3H Lab 10/15/19 06:30 Ordered Peak Expiratory Flow Rate ONCE RT 10/14/19 19:13 Active Respiratory Therapy Assessment DAILY RT 10/14/19 19:24 Active Medication Summary Generic Name Dose Route Start Last Admin Trade Name Freq PRN Reason Stop Dose Admin Ceftriaxone Sodium/Dextrose 1 g in 50 mls @ 100 mls/hr 10/14/19 19:39 Rocephin 1 Gm-D5w 50 Ml Bag IV 10/14/19 20:08 STAT STA Discontinued Medications Generic Name Dose Route Start Last Admin Trade Name Freq PRN Reason Stop Dose Admin Albuterol Sulfate 2.5 mg 10/14/19 19:01 10/14/19 19:03 Proventil 2.5 Mg/3 Ml Neb IH 10/14/19 19:02 2.5 mg STAT ONE Administration Albuterol/Ipratropium Confirm 10/14/19 18:59 Duoneb 0.5-3 Mg/3 Ml Neb Administered 10/14/19 19:00 Dose 3 ml IH .STK-MED ONE Furosemide 40 mg 10/14/19 19:18 10/14/19 19:24 Lasix 40 Mg/4 Ml IV 10/14/19 19:19 40 mg STAT ONE Administration Furosemide Confirm 10/14/19 19:23 Lasix 40 Mg/4 Ml Administered 10/14/19 19:24 Dose 40 mg .ROUTE .STK-MED ONE Lab/Rad Data: Laboratory Result Diagrams 10/14/19 18:43 10/14/19 18:43 Laboratory Results 10/14/19 10/14/19 10/14/19 Range/Units 19:00 18:43 18:43 WBC (4.0-10.5) K/mm3 RBC (4.1-5.4) M/mm3 Hgb (12.0-16.0) gm/dl Hct (35-47) % MCV (78-100) fl MCH (26-32) pg MCHC (32-36) g/dl RDW (11.5-14.0) % Plt Count (150-450) K/mm3 MPV (7.5-11.0) fl Gran % (36.0-66.0) % Eos # (Auto) (0-0.5) Absolute Lymphs (auto) (1.0-4.6) Absolute Monos (auto) (0.0-1.3) Lymphocytes % (24.0-44.0) % Monocytes % (0.0-12.0) % Eosinophils % (0.00-5.0) % Basophils % (0.0-0.4) % Absolute Granulocytes (1.4-6.9) Basophils # (0-0.4) PT 13.4 H (9.95-12.35) SECONDS INR 1.18 (0.8-3.0) Sodium (137-145) mmol/L Potassium (3.5-5.1) mmol/L Chloride (98-107) mmol/L Carbon Dioxide (22-30) mmol/L Anion Gap (5-15) MEQ/L BUN (7-17) mg/dL Creatinine (0.52-1.04) mg/dL Estimated GFR ML/MIN Glucose (74-106) mg/dL Lactic Acid 0.9 (0.4-2.0) Calcium (8.4-10.2) mg/dL Total Bilirubin (0.2-1.3) mg/dL AST (14-36) U/L ALT (0-35) U/L Alkaline Phosphatase (38-126) U/L Troponin I < 0.012 (0.000-0.034) ng/mL NT-Pro-B Natriuret Pep (0-900) pg/mL Serum Total Protein (6.3-8.2) g/dL Albumin (3.5-5.0) g/dL 10/14/19 10/14/19 Range/Units 18:43 18:43 WBC 6.4 (4.0-10.5) K/mm3 RBC 3.33 L (4.1-5.4) M/mm3 Hgb 9.1 L (12.0-16.0) gm/dl Hct 27.2 L (35-47) % MCV 81.7 (78-100) fl MCH 27.3 (26-32) pg MCHC 33.5 (32-36) g/dl RDW 15.8 H (11.5-14.0) % Plt Count 195 (150-450) K/mm3 MPV 8.8 (7.5-11.0) fl Gran % 64.0 (36.0-66.0) % Eos # (Auto) 0.24 (0-0.5) Absolute Lymphs (auto) 1.55 (1.0-4.6) Absolute Monos (auto) 0.47 (0.0-1.3) Lymphocytes % 24.3 (24.0-44.0) % Monocytes % 7.4 (0.0-12.0) % Eosinophils % 3.8 (0.00-5.0) % Basophils % 0.5 (0.0-0.4) % Absolute Granulocytes 4.09 (1.4-6.9) Basophils # 0.03 (0-0.4) PT (9.95-12.35) SECONDS INR (0.8-3.0) Sodium 123 L (137-145) mmol/L Potassium 5.2 H (3.5-5.1) mmol/L Chloride 93 L (98-107) mmol/L Carbon Dioxide 21 L (22-30) mmol/L Anion Gap 14.7 (5-15) MEQ/L BUN 17 (7-17) mg/dL Creatinine 1.07 H (0.52-1.04) mg/dL Estimated GFR 57.2 ML/MIN Glucose 179 H (74-106) mg/dL Lactic Acid (0.4-2.0) Calcium 8.5 (8.4-10.2) mg/dL Total Bilirubin 0.50 (0.2-1.3) mg/dL AST 30 (14-36) U/L ALT 13 (0-35) U/L Alkaline Phosphatase 231 H (38-126) U/L Troponin I (0.000-0.034) ng/mL NT-Pro-B Natriuret Pep 428 (0-900) pg/mL Serum Total Protein 7.5 (6.3-8.2) g/dL Albumin 3.5 (3.5-5.0) g/dL - Progress Progress: improved, re-examined Air Movement: good Progress Note: 02/10/20 19:46 Differential diagnosis includes pneumonia versus CHF versus pleural effusion. In addition she has intra-abdominal ascites. Chest x-ray reveals either fluid present versus atelectasis. Difficult to determine if there is an infiltrate present. Medical decision making: Given the patient's history of recurrent intra- abdominal ascites and the presence of ascites on physical exam intra-abdominal he, we have arranged for a intra-abdominal paracentesis for tomorrow morning. Patient agrees with this plan. Patient is not under any respiratory distress and room air oxygenation is at 99% with a respiratory rate of 16-18. The patient is afebrile and her white count is normal. However she does have a new cough and it is difficult to determine whether or not this patient has an infiltrate.. Blood Culture(s) Obtained: No Antibiotics given: Yes Counseled pt/family regarding: lab results, diagnosis, need for follow-up, rad results - Departure Departure Disposition: Home Clinical Impression: Ascites of liver, Cough, Pulmonary infiltrate in right lung on CXR Condition: Stable Critical Care Time: No Referrals: TERRY TRONCOSO [Primary Care Provider] - Additional Instructions: Return tomorrow to the radiology department for your paracentesis. Fill your Z- [facility] prescription. Take your medicine as prescribed. Follow-up with your primary care physician for persistent symptoms. Prescriptions: Azithromycin 250 mg [Zithromax 250 MG TABLET] 250 mg PO ZPACK #6 tablet
[2019-10-14 18:52] LABS: Absolute Neutrophil Ct (ANC) 4.09 (1.4-6.9); BASOPHIL % 0.5 % (0.0-0.4); Basophil (Absolute #) 0.03 (0-0.4); Eosinophil % 3.8 % (0.00-5.0); Eosinophil (Absolute #) 0.24 (0-0.5); Hematocrit 27.2 % (35-47); Hemoglobin 9.1 gm/dl (12.0-16.0); Lymphocyte (Absolute #) 1.55 (1.0-4.6); Lymphocytes % 24.3 % (24.0-44.0); Mean Cell Volume 81.7 fl (78-100); Mean Corpuscular Hemoglobin 27.3 pg (26-32); Mean Corpuscular Hgb Concent. 33.5 g/dl (32-36); Mean Platelet Volume 8.8 fl (7.5-11.0); Monocyte (Absolute #) 0.47 (0.0-1.3); Monocytes % 7.4 % (0.0-12.0); Platelet Count 195 K/mm3 (150-450); Red Blood Count 3.33 M/mm3 (4.1-5.4); Red Cell Distribution Width 15.8 % (11.5-14.0); White Blood Count 6.4 K/mm3 (4.0-10.5)
[2019-10-14] MEDS ORDERED: DUONEB 0.5-3 MG/3 ml Neb IH ONE (18:59)
[2019-10-14] MEDS ORDERED: PROVENTIL 2.5 MG/3 ML NEB IH ONE (19:01)
[2019-10-14 19:02] LABS: INR 1.18 (0.8-3.0); PROTIME 13.4 SECONDS (9.95-12.35)
[2019-10-14] MEDS ORDERED: Lasix 40 MG/4 ML IV ONE (19:18)
[2019-10-14 19:21] LABS: ALBUMIN 3.5 g/dL (3.5-5.0); ANION GAP 14.7 MEQ/L (5-15); BILIRUBIN,TOTAL 0.5 mg/dL (0.2-1.3); Calcium 8.5 mg/dL (8.4-10.2); Creatinine 1 1.07 mg/dL (0.52-1.04); Total Protein 7.5 g/dL (6.3-8.2)
[2019-10-14] MEDS ORDERED: Lasix 40 MG/4 ML ONE (19:23)
[2019-10-14 19:24] LABS: Potassium 5.2 mmol/L (3.5-5.1)
[2019-10-14] MEDS ORDERED: ROCEPHIN 1 Gm-D5w 50 ml Bag** 1 G/50 ML IVPB IV STA (19:39)
[2019-10-14 19:52] LABS: INFLUENZA A NEGATIVE (NEGATIVE); INFLUENZA B NEGATIVE (NEGATIVE); RESPIRATORY SYNCTIAL VIRUS NEGATIVE (Negative)
[2019-10-14] MEDS ORDERED: ROCEPHIN 1 Gm-D5w 50 ml Bag** 1 G/50 ML IVPB IV ONE (20:04)
[2019-10-14 21:06] VITALS: BP 116/57; PULSE 74; O2SAT 97
--- NOTE | 2019-10-15 08:58 | XRAY ---
Indication: Cough and short of breath. Comparison: September 27, 2019. Portable chest again demonstrates diffuse left lung and right base interstitial alveolar opacities with tiny bibasilar effusions. Heart and mediastinal structures within normal limits. No new cardiopulmonary abnormalities.
== END 2019-10-14 21:00 | disposition home or self-care (01) ==
LOC: ED 17:57
DX: R18.8 Other ascites (principal); R05 Cough; R91.8 Other nonspecific abnormal finding of lung field; K76.0 Fatty (change of) liver, not elsewhere classified; I10 Essential (primary) hypertension; J44.9 Chronic obstructive pulmonary disease, unspecified; E11.9 Type 2 diabetes mellitus without complications
CPT/HCPCS: 36000; 36415; 71045; 80053; 83605; 83880; 84484; 85025; 85610; 87631; 87651; 93005; 93041; 94150; 94640; 94760; 96365; 96374; 99284; J0696; J1940; J7609; A9270-GY

== ENCOUNTER 2019-10-29 13:34 | Observation (INO) | payer MEDICARE ==
--- NOTE | 2019-10-29 13:42 | ERPHSYRPT ---
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 Onset reportedly was 3 days ago. She reportedly has become nauseous but denies vomiting, fever as well as chills and states that she feels as if her pain is distended and is requesting an abdominal paracentesis at this time. She states her last paracentesis was 3 weeks ago and reportedly at [facility] and was done through the emergency department and also during that admission. Breath, chest pain, diarrhea, constipation in addition to symptoms consistent with a UTI. Her primary care provider is Dr. Ayala. Associated Symptoms: nausea, abdominal pain, No vomiting, No shortness of breath , No cough, No chills, No chest pain, No rash Allergies/Adverse Reactions: adhesive tape Allergy (Mild, Verified 10/29/19 17:39) redness bee stings Allergy (Mild, Uncoded 10/29/19 17:39) Anaphylactic Reaction trouble breathing and swelling. Home Medications: Duloxetine HCl 30 mg [Cymbalta 30 MG Capsule] 60 mg PO HS 11/17/12 [ History] Albuterol Sulfate [Proair Hfa] 2 puff IH Q4HPRN PRN 04/21/15 [History] Omeprazole 20 MG [Prilosec 20 mg] 20 mg PO DAILY 04/21/15 [History] Pravastatin Sodium [Pravachol] 10 mg PO HS 02/07/16 [History] Gabapentin [Gralise] 600 mg PO TID 11/11/16 [History] Docusate Sodium 100 mg [Colace 100 MG] 100 mg PO HSPRN PRN 01/18/19 [ History] Ergocalciferol (Vitamin D2) [Vitamin D] 50,000 units PO UD 01/18/19 [History] Ferrous Sulfate 325 mg PO BID 01/18/19 [History] Hydroxyzine HCl 10 mg PO BID 01/18/19 [History] Levothyroxine Sodium 25 Mcg [Synthroid 25 Mcg] 25 mcg PO DAILY 01/18/19 [ History] Insulin Glargine [Lantus Insulin] 30 units SQ HS 09/27/19 [History] Metoprolol Tartrate 25 mg [Lopressor 25MG Tab] 1 tab PO BID 09/27/19 [ History] Tiotropium [place] [Spiriva Respimat] 1 puff IH DAILY 10/14/19 [History] Furosemide 40 mg [Lasix 40 MG] 40 mg PO BID 10/29/19 [History] Lactulose [Lactulose 20 gm/30Ml Ud Cup] 20 gm PO TID 10/29/19 [History] Hx Tetanus, Diphtheria Vaccination/Date Given: Yes Hx Influenza Vaccination/Date Given: Yes Hx Pneumococcal Vaccination/Date Given: Yes - Review of Systems Constitutional: No Fever, No Chills Eyes: No Symptoms Ears, Nose, & Throat: No Symptoms Respiratory: No Cough, No Dyspnea Cardiac: No Chest Pain, No Syncope, No PND Abdominal/Gastrointestinal: Abdominal Pain, Nausea, No Vomiting, No Diarrhea, No Constipation Genitourinary Symptoms: No Dysuria, No Frequency, No Hematuria, No Hesitancy, No Incontinence Skin: No Symptoms Neurological: No Symptoms, No Headache Psychological: No Symptoms Endocrine: No Symptoms Hematologic/Lymphatic: No Symptoms Immunological/Allergic: No Symptoms All Other Systems: Reviewed and Negative - Past Medical History Pertinent Past Medical History: Yes Neurological History: No Pertinent History ENT History: No Pertinent History Cardiac History: Hypertension Respiratory History: Asthma, COPD, Pneumonia Endocrine Medical History: Diabetes Type II Musculoskeletal History: Fractures GI Medical History: GERD, Other History: No Pertinent History Psycho-Social History: Anxiety, Depression Female Reproductive Disorders: No Pertinent History Other Medical History: left ankle fx with mult surgeries, in February 2019 bka,. ascites. fatty liver - Past Surgical History Past Surgical History: Yes Neuro Surgical History: No Pertinent History Cardiac: No Pertinent History Respiratory: No Pertinent History Gastrointestinal: Cholecystectomy, Exploratory Laparoscopy Genitourinary: No Pertinent History Musculoskeletal: No Pertinent History, Amputation Female Surgical History: Section, Hysterectomy Other Surgical History: foot surgery, screw placed in left big toe, removal, and antibiotic bead placement. mult lt foot surgeries. LT BKA February 2019 - Social History Smoking Status: Current every day smoker How long have you smoked: 34 Exposure to second hand smoke: No Drug Use: none Patient Lives Alone: No - Nursing Vital Signs Nursing Vital Signs: Initial Vital Signs Temperature 97.6 F 10/29/19 13:39 Pulse Rate 110 H 10/29/19 13:39 Respiratory Rate 10/29/19 13:39 Blood Pressure 187/92 10/29/19 13:39 O2 Sat by Pulse Oximetry 94 L 10/29/19 13:39 Pain Scale Pain Intensity 0 - Physical Exam General Appearance: no apparent distress, alert Eye Exam: PERRL/EOMI, scleral icterus Ears, Nose, Throat Exam: normal ENT inspection, pharynx normal, No pharyngeal erythema, No tonsillar exudate Neck Exam: normal inspection, non-tender, supple, No mass Respiratory Exam: airway intact, crackles/rales, No respiratory distress, No accessory muscle use, No prolonged expirations Cardiovascular Exam: normal peripheral pulses, tachycardia, capillary refill <2 sec, No murmur, No friction rub, No gallop Gastrointestinal/Abdomen Exam: soft, distention, hepatomegaly, other (Ascites), No tenderness Pelvic Exam: not done Rectal Exam: deferred Back Exam: normal inspection Extremity Exam: normal inspection, No pedal edema, No swelling, No tenderness Neurologic Exam: alert, 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, cooperative Skin Exam: normal color, warm, dry, jaundice, No rash, No petechiae SpO2 Interpretation: normal O2 Delivery: Room Air - Course Nursing assessment & vital signs reviewed: Yes EKG Interpreted by Me: Other (Sinus tachycardia, no acute myocardial ischemia or injury) - Radiology Exams Chest X-ray Interpretation: Reviewed by me, Negative (No acute cardiopulmonary process ) Ordered Tests: Active Orders 24 hr Category Date Time Status EKG-ER Only STAT Care 10/29/19 14:24 Completed CHEST 2 VIEWS (PA AND LAT) Stat Exams 10/29/19 14:04 Completed BMP Stat Lab 10/29/19 14:53 Completed CBC W DIFF Stat Lab 10/29/19 14:53 Completed CULTURE,URINE Stat Lab 10/29/19 Received Hepatic Function Panel Stat Lab 10/29/19 14:53 Completed PROTIME WITH INR Stat Lab 10/29/19 14:53 Completed UA W/RFX UR CULTURE Stat Lab 10/29/19 Completed Medication Summary Generic Name Dose Route Start Last Admin Trade Name Freq PRN Reason Stop Dose Admin Albuterol Sulfate 2.5 mg 10/29/19 19:24 10/29/19 19:25 Proventil 2.5 Mg/3 Ml Neb IH 11/28/19 19:23 2.5 mg Q4H PRN PRN Administration SHORTNESS OF BREATH/WHEEZING Docusate Sodium 100 mg 10/29/19 22:00 Colace 100 Mg PO 11/28/19 21:59 HS PRN constipation Duloxetine HCl 60 mg 10/29/19 22:00 Cymbalta 30 Mg Capsule PO 11/28/19 21:59 HS [facility] Ferrous Sulfate 325 mg 10/29/19 22:00 Feosol 325 Mg PO 11/28/19 21:59 BID [facility] Furosemide 40 mg 10/29/19 22:00 Lasix 40 Mg PO 11/28/19 21:59 BID DIURETIC [facility] Gabapentin 600 mg 10/29/19 22:00 Neurontin 300 Mg PO 11/28/19 21:59 TID [facility] Hydroxyzine HCl 10 mg 10/29/19 22:00 Atarax 25 Mg PO 11/28/19 21:59 BID [facility] Insulin Glargine 30 unit 10/29/19 22:00 Lantus Insulin SQ 11/28/19 21:59 HS [facility] Insulin Human Lispro 0 unit 10/29/19 19:00 Humalog SQ 11/28/19 18:59 UD PRN HYPERGLYCEMIA Lactulose 20 gm 10/29/19 22:00 Lactulose 20 Gm/30ml Ud Cup PO 11/28/19 21:59 TID [facility] Metoprolol Tartrate 25 mg 10/29/19 22:00 Lopressor 25mg Tab PO 11/28/19 21:59 BID [facility] Ondansetron HCl 4 mg 10/29/19 18:42 Zofran 4 Mg/2 Ml Vial IV 11/28/19 18:41 Q4H PRN PRN NAUSEA/VOMITING Simvastatin 10 mg 10/29/19 22:00 Zocor 10mg PO 11/28/19 21:59 HS [facility] Tiotropium [place] 1 ea 10/30/19 07:00 Spiriva 18 Mcg/Cap Inhaler IH 11/29/19 06:59 DAILY TISHA Discontinued Medications Generic Name Dose Route Start Last Admin Trade Name Allan PRN Reason Stop Dose Admin Albuterol Sulfate Confirm 10/29/19 19:20 Proventil 2.5 Mg/3 Ml Neb Administered 10/29/19 19:21 Dose 2.5 mg IH .STK-MED ONE Ondansetron HCl 4 mg 10/29/19 14:23 10/29/19 14:39 Zofran 4 Mg/2 Ml Vial IV 10/29/19 14:24 4 mg STAT ONE Administration Ondansetron HCl Confirm 10/29/19 14:33 Zofran 4 Mg/2 Ml Vial Administered 10/29/19 14:34 Dose 4 mg .ROUTE .STK-MED ONE Lab/Rad Data: Laboratory Result Diagrams 10/29/19 14:53 10/29/19 14:53 Laboratory Results 10/29/19 10/29/19 10/29/19 Range/Units 14:53 14:53 14:53 WBC 5.7 (4.0-10.5) K/mm3 RBC 3.65 L (4.1-5.4) M/mm3 Hgb 9.8 L (12.0-16.0) gm/dl Hct 30.2 L (35-47) % MCV 82.7 (78-100) fl MCH 26.8 (26-32) pg MCHC 32.5 (32-36) g/dl RDW 15.2 H (11.5-14.0) % Plt Count 152 (150-450) K/mm3 MPV 9.7 (7.5-11.0) fl Gran % 71.5 H (36.0-66.0) % Eos # (Auto) 0.12 (0-0.5) Absolute Lymphs (auto) 1.10 (1.0-4.6) Absolute Monos (auto) 0.33 (0.0-1.3) Lymphocytes % 19.4 L (24.0-44.0) % Monocytes % 5.8 (0.0-12.0) % Eosinophils % 2.1 (0.00-5.0) % Basophils % 1.2 (0.0-0.4) % Absolute Granulocytes 4.05 (1.4-6.9) Basophils # 0.07 (0-0.4) PT 14.4 H (9.95-12.35) SECONDS INR 1.27 (0.8-3.0) Sodium 132 L (137-145) mmol/L Potassium 4.6 (3.5-5.1) mmol/L Chloride 100 (98-107) mmol/L Carbon Dioxide 27 (22-30) mmol/L Anion Gap 9.8 (5-15) MEQ/L BUN 17 (7-17) mg/dL Creatinine 1.09 H (0.52-1.04) mg/dL Estimated GFR 56.0 ML/MIN Glucose 222 H (74-106) mg/dL Calcium 8.8 (8.4-10.2) mg/dL Total Bilirubin 0.60 (0.2-1.3) mg/dL Direct Bilirubin 0.3 (0.0-0.4) mg/dL AST 24 (14-36) U/L ALT 11 (0-35) U/L Alkaline Phosphatase 202 H (38-126) U/L Serum Total Protein 7.5 (6.3-8.2) g/dL Albumin 3.4 L (3.5-5.0) g/dL - Progress Progress: improved, re-examined Progress Note: 10/29/19 16:[address] Ayala, the patient's PCP, who agreed to admit for observation 10/29/19 20:31 Nontoxic in appearance. The patient overall appears to be well-appearing Suspicion for SBP is low at this time initial plan was to obtain basic labs and if there are no signs of infection to have her follow-up tomorrow as an outpatient in radiology to undergo an abdominal paracentesis. Labs demonstrated her baseline hyponatremia, renal function in addition to anemia and liver function. When the nurse went in to reassess the patient, she was taken and noted to be at 83% on room air for an SPO2 reading with a correlating waveform. It was at that time that the patient reported that she is supposed to be wearing 2 L of supplemental oxygen via nasal cannula but has not had her oxygen because of a recent move. Because of this, I decided to admit the patient so she can undergo another home O2 eval and be seen by social work faculty member to have this arranged to be supplied as an outpatient. During this observation admission, the plan is also for her to undergo an abdominal paracentesis. Discussed with : Faheem (Admit for observation. Hold fluids and plan for US abdominal paracentesis tomorrow) Will see patient in: hospital (observation) Counseled pt/family regarding: lab results, diagnosis, rad results - Departure Departure Disposition: Observation Clinical Impression: Ascites, Hypoxia, COPD (chronic obstructive pulmonary disease) Condition: Stable Critical Care Time: No
[2019-10-29] MEDS ORDERED: Zofran 4 MG/2 ML VIAL IV ONE (14:23)
[2019-10-29] MEDS ORDERED: Zofran 4 MG/2 ML VIAL ONE (14:33)
--- NOTE | 2019-10-29 14:47 | XRAY ---
Indication: Productive cough and congestion. Comparison: October 14, 2019. PA/lateral chest demonstrates minimal clearing of the previous diffuse left lung interstitial alveolar opacities with mild residual. Stable right base infiltrate/atelectasis and tiny bibasilar effusions. Heart is not enlarged. No new cardiopulmonary abnormalities.
[2019-10-29 14:53] LABS: Absolute Neutrophil Ct (ANC) 4.05 (1.4-6.9); BASOPHIL % 1.2 % (0.0-0.4); Basophil (Absolute #) 0.07 (0-0.4); Eosinophil % 2.1 % (0.00-5.0); Eosinophil (Absolute #) 0.12 (0-0.5); Hematocrit 30.2 % (35-47); Hemoglobin 9.8 gm/dl (12.0-16.0); Lymphocytes % 19.4 % (24.0-44.0); Mean Cell Volume 82.7 fl (78-100); Mean Corpuscular Hemoglobin 26.8 pg (26-32); Mean Corpuscular Hgb Concent. 32.5 g/dl (32-36); Mean Platelet Volume 9.7 fl (7.5-11.0); Monocyte (Absolute #) 0.33 (0.0-1.3); Monocytes % 5.8 % (0.0-12.0); Neutrophil % 71.5 % (36.0-66.0); Platelet Count 152 K/mm3 (150-450); Red Blood Count 3.65 M/mm3 (4.1-5.4); Red Cell Distribution Width 15.2 % (11.5-14.0); White Blood Count 5.7 K/mm3 (4.0-10.5)
[2019-10-29 14:58] LABS: INR 1.27 (0.8-3.0); PROTIME 14.4 SECONDS (9.95-12.35)
[2019-10-29 15:04] LABS: ALBUMIN 3.4 g/dL (3.5-5.0); ANION GAP 9.8 MEQ/L (5-15); BILIRUBIN,TOTAL 0.6 mg/dL (0.2-1.3); Calcium 8.8 mg/dL (8.4-10.2); Creatinine 1 1.09 mg/dL (0.52-1.04); Direct Bilirubin 0.3 mg/dL (0.0-0.4); Potassium 4.6 mmol/L (3.5-5.1); Total Protein 7.5 g/dL (6.3-8.2)
[2019-10-29 17:02] LABS: Appearance CLEAR (CLEAR); Bacteria RARE /HPF (NEGATIVE); Bilirubin NEGATIVE (NEGATIVE); Blood SMALL Ery/ul (0-5); Epithelial Cells RARE /HPF (FEW); Glucose 50 mg/dL (NEGATIVE); Ketones NEGATIVE (NEGATIVE); Leukocyte Esterase SMALL (NEGATIVE); Mucus SLIGHT /HPF (NEGATIVE); Nitrite NEGATIVE (NEGATIVE); Protein,Urine Dip 100 (Negative); Specific Gravity 1.012 (1.005-1.025); Urobilinogen NEGATIVE mg/dL (0-1); WBC 26-50 /HPF (0-5)
[2019-10-29] MEDS ORDERED: Zofran 4 MG/2 ML VIAL IV PRN (18:42)
[2019-10-29] MEDS ORDERED: PROVENTIL 2.5 MG/3 ML NEB IH ONE (19:20)
[2019-10-29] MEDS ORDERED: PROVENTIL 2.5 MG/3 ML NEB IH PRN (19:24)
[2019-10-29] MEDS: Lantus Insulin SQ SCH (21:54)
[2019-10-29] MEDS: HUMALOG SQ PRN (21:54)
[2019-10-29] MEDS: FEOSOL 325 MG PO SCH (21:57)
[2019-10-29] MEDS: Zocor 10MG PO SCH (21:58)
[2019-10-29] MEDS: Lopressor 25MG Tab PO SCH (21:58)
[2019-10-29] MEDS: Lasix 40 MG PO SCH (21:58)
[2019-10-29] MEDS: LACTULOSE 20 GM/30ML UD CUP PO SCH (21:59)
[2019-10-29] MEDS ORDERED: Colace 100 MG PO PRN (22:00)
[2019-10-29] MEDS ORDERED: ATARAX 25 MG PO SCH (22:00)
[2019-10-29] MEDS: NEURONTIN 300 MG PO SCH (22:04)
[2019-10-29] MEDS: Cymbalta 30 MG Capsule PO SCH (22:04)
[2019-10-30 05:19] LABS: Absolute Neutrophil Ct (ANC) 3.95 (1.4-6.9); Basophil (Absolute #) 0.06 (0-0.4); Eosinophil % 3.5 % (0.00-5.0); Eosinophil (Absolute #) 0.21 (0-0.5); Hematocrit 29.1 % (35-47); Hemoglobin 9.2 gm/dl (12.0-16.0); Lymphocyte (Absolute #) 1.37 (1.0-4.6); Lymphocytes % 22.5 % (24.0-44.0); Mean Cell Volume 84.8 fl (78-100); Mean Corpuscular Hemoglobin 26.8 pg (26-32); Mean Corpuscular Hgb Concent. 31.6 g/dl (32-36); Mean Platelet Volume 9.7 fl (7.5-11.0); Monocyte (Absolute #) 0.49 (0.0-1.3); Monocytes % 8.1 % (0.0-12.0); Neutrophil % 64.9 % (36.0-66.0); Platelet Count 146 K/mm3 (150-450); Red Blood Count 3.43 M/mm3 (4.1-5.4); Red Cell Distribution Width 15.3 % (11.5-14.0); White Blood Count 6.1 K/mm3 (4.0-10.5)
[2019-10-30 05:41] LABS: ALBUMIN 2.9 g/dL (3.5-5.0); ANION GAP 8.7 MEQ/L (5-15); BILIRUBIN,TOTAL 0.5 mg/dL (0.2-1.3); Calcium 8.4 mg/dL (8.4-10.2); Creatinine 1 1.19 mg/dL (0.52-1.04); Potassium 4.9 mmol/L (3.5-5.1); Total Protein 6.7 g/dL (6.3-8.2)
[2019-10-30] MEDS ORDERED: INSULIN LISPRO 8 UNIT SQ SCH (08:00)
[2019-10-30] MEDS: NEURONTIN 300 MG PO SCH ×3 (08:38→21:40)
[2019-10-30] MEDS: Lasix 40 MG PO SCH ×2 (08:38→17:13)
[2019-10-30] MEDS: LACTULOSE 20 GM/30ML UD CUP PO SCH ×4 (08:38→21:42)
[2019-10-30] MEDS: ATARAX 25 MG PO SCH ×2 (08:38→21:41)
[2019-10-30] MEDS: Lopressor 25MG Tab PO SCH ×2 (08:38→21:40)
[2019-10-30] MEDS: Zestril 5 MG PO SCH (08:39)
[2019-10-30] MEDS: Protonix 40MG Tablet PO SCH (08:39)
[2019-10-30] MEDS: SYNTHROID 25 MCG PO SCH (08:39)
[2019-10-30] MEDS: HUMALOG SQ SCH ×3 (08:39→17:19)
[2019-10-30] MEDS: FEOSOL 325 MG PO SCH ×2 (08:39→21:40)
--- NOTE | 2019-10-30 09:14 | XRAY ---
Indication: Dyspnea. Comparison: One day earlier. PA/lateral chest unchanged again demonstrating diffuse left lung interstitial alveolar opacities, right base infiltrate/atelectasis, and tiny bibasilar effusions. Heart is not enlarged. No new cardiopulmonary abnormalities.
[2019-10-30] MEDS ORDERED: SYNTHROID 25 MCG PO SCH (10:00)
[2019-10-30] MEDS ORDERED: NON-FORMULARY ITEM (Omeprazole 20 Mg [Prilosec 20 Mg] 20 MG) PO SCH (10:00)
[2019-10-30] MEDS: Spiriva 18 Mcg/Cap Inhaler IH SCH (10:53)
--- NOTE | 2019-10-30 11:48 | PCM.NOTE ---
Date and Time: 10/30/19 1147 Subjective Assessment: Patient reports looking forward to paracentesis to remove fluid. Not much abdominal pain. Not much nausea. - Review of Systems Constitutional: No Symptoms Respiratory: No Symptoms Cardiac: No Symptoms Abdominal/Gastrointestinal: Other (abdominal distenstion) Genitourinary Symptoms: No Symptoms Musculoskeletal: No Symptoms Objective Exam General Appearance: no apparent distress Neurologic Exam: alert, cooperative, normal mood/affect Skin Exam: normal color, warm, dry Respiratory Exam: normal breath sounds, lungs clear, other (few scattered rhonchi), No crackles/rales, No wheezing Cardiovascular Exam: regular rate/rhythm, normal heart sounds Gastrointestinal/Abdomen Exam: soft, other (distended), No tenderness Extremity Exam: normal inspection OBJECTIVE DATA Vital Signs: Vital Signs - 24 hr Temp Pulse Resp BP Pulse Ox 10/30/19 11:45 98.2 F 67 18 127/56 88 L 10/30/19 11:23 88 L 10/30/19 10:57 66 20 99 10/30/19 08:00 98.0 F 65 18 164/71 98 10/30/19 04:00 98.1 F 77 17 146/66 98 10/30/19 00:00 98.4 F 78 18 149/65 98 10/29/19 20:00 98.0 F 97 H 18 136/66 98 10/29/19 19:28 95 H 18 98 10/29/19 17:50 98.3 F 18 165/74 91 L 10/29/19 17:35 98.3 F 102 H 18 165/74 91 L 10/29/19 16:24 105 H 18 171/76 94 L 10/29/19 15:38 97 H 20 139/80 100 10/29/19 14:38 97.8 F 108 H 20 146/78 98 10/29/19 13:39 97.6 F 110 H 20 187/92 94 L Oxygen-Last 24 hours Oxygen Flowrate (L/min)-RT 2 Oxygen Flowrate (L/min)-RT 2 Pain Assessment - Last Documented Pain Intensity 0 Pain Scale Used 0-10 Pain Scale Intake and Output: Intake & Output 10/28/19 10/29/19 10/30/19 10/31/19 06:59 06:59 06:59 06:59 Intake Total 960 Output Total 500 Balance 960 -500 Weight 78.9 kg Lab Results: Accuchecks Date 10/30/19 Date 10/29/19 Time 07:30 Accucheck Value: 193 Accucheck Value: 246 Lab Results-Last 24 Hours 10/29/19 10/29/19 10/29/19 Range/Units 14:53 14:53 14:53 WBC 5.7 (4.0-10.5) K/mm3 RBC 3.65 L (4.1-5.4) M/mm3 Hgb 9.8 L (12.0-16.0) gm/dl Hct 30.2 L (35-47) % MCV 82.7 (78-100) fl MCH 26.8 (26-32) pg MCHC 32.5 (32-36) g/dl RDW 15.2 H (11.5-14.0) % Plt Count 152 (150-450) K/mm3 MPV 9.7 (7.5-11.0) fl Gran % 71.5 H (36.0-66.0) % Eos # (Auto) 0.12 (0-0.5) Absolute Lymphs (auto) 1.10 (1.0-4.6) Absolute Monos (auto) 0.33 (0.0-1.3) Lymphocytes % 19.4 L (24.0-44.0) % Monocytes % 5.8 (0.0-12.0) % Eosinophils % 2.1 (0.00-5.0) % Basophils % 1.2 (0.0-0.4) % Absolute Granulocytes 4.05 (1.4-6.9) Basophils # 0.07 (0-0.4) PT 14.4 H (9.95-12.35) SECONDS INR 1.27 (0.8-3.0) Sodium 132 L (137-145) mmol/L Potassium 4.6 (3.5-5.1) mmol/L Chloride 100 (98-107) mmol/L Carbon Dioxide 27 (22-30) mmol/L Anion Gap 9.8 (5-15) MEQ/L BUN 17 (7-17) mg/dL Creatinine 1.09 H (0.52-1.04) mg/dL Estimated GFR 56.0 ML/MIN Glucose 222 H (74-106) mg/dL Hemoglobin A1c (4.5-6.0) % Calcium 8.8 (8.4-10.2) mg/dL Total Bilirubin 0.60 (0.2-1.3) mg/dL Direct Bilirubin 0.3 (0.0-0.4) mg/dL AST 24 (14-36) U/L ALT 11 (0-35) U/L Alkaline Phosphatase 202 H (38-126) U/L Serum Total Protein 7.5 (6.3-8.2) g/dL Albumin 3.4 L (3.5-5.0) g/dL Urine Color (YELLOW) Urine Appearance (CLEAR) Urine pH (5-6) Ur Specific Queen (1.005-1.025) Urine Protein (Negative) Urine Ketones (NEGATIVE) Urine Blood (0-5) Ubaldo/ul Urine Nitrite (NEGATIVE) Urine Bilirubin (NEGATIVE) Urine Urobilinogen (0-1) mg/dL Ur Leukocyte Esterase (NEGATIVE) Urine WBC (Auto) (0-5) /HPF Urine RBC (Auto) (0-2) /HPF U Epithel Cells (Auto) (FEW) /HPF Urine Bacteria (Auto) (NEGATIVE) /HPF Urine Mucus (Auto) (NEGATIVE) /HPF Urine Culture Reflexed (NO) Urine Glucose (NEGATIVE) mg/dL 10/29/19 10/29/19 10/30/19 Range/Units 18:15 Unknown 04:59 WBC 6.1 (4.0-10.5) K/mm3 RBC 3.43 L (4.1-5.4) M/mm3 Hgb 9.2 L (12.0-16.0) gm/dl Hct 29.1 L (35-47) % MCV 84.8 (78-100) fl MCH 26.8 (26-32) pg MCHC 31.6 L (32-36) g/dl RDW 15.3 H (11.5-14.0) % Plt Count 146 L (150-450) K/mm3 MPV 9.7 (7.5-11.0) fl Gran % 64.9 (36.0-66.0) % Eos # (Auto) 0.21 (0-0.5) Absolute Lymphs (auto) 1.37 (1.0-4.6) Absolute Monos (auto) 0.49 (0.0-1.3) Lymphocytes % 22.5 L (24.0-44.0) % Monocytes % 8.1 (0.0-12.0) % Eosinophils % 3.5 (0.00-5.0) % Basophils % 1.0 (0.0-0.4) % Absolute Granulocytes 3.95 (1.4-6.9) Basophils # 0.06 (0-0.4) PT (9.95-12.35) SECONDS INR (0.8-3.0) Sodium (137-145) mmol/L Potassium (3.5-5.1) mmol/L Chloride (98-107) mmol/L Carbon Dioxide (22-30) mmol/L Anion Gap (5-15) MEQ/L BUN (7-17) mg/dL Creatinine (0.52-1.04) mg/dL Estimated GFR ML/MIN Glucose (74-106) mg/dL Hemoglobin A1c 6.23 H (4.5-6.0) % Calcium (8.4-10.2) mg/dL Total Bilirubin (0.2-1.3) mg/dL Direct Bilirubin (0.0-0.4) mg/dL AST (14-36) U/L ALT (0-35) U/L Alkaline Phosphatase (38-126) U/L Serum Total Protein (6.3-8.2) g/dL Albumin (3.5-5.0) g/dL Urine Color YELLOW (YELLOW) Urine Appearance CLEAR (CLEAR) Urine pH 7.0 (5-6) Ur Specific Queen 1.012 (1.005-1.025) Urine Protein 100 (Negative) Urine Ketones NEGATIVE (NEGATIVE) Urine Blood SMALL (0-5) Ubaldo/ul Urine Nitrite NEGATIVE (NEGATIVE) Urine Bilirubin NEGATIVE (NEGATIVE) Urine Urobilinogen NEGATIVE (0-1) mg/dL Ur Leukocyte Esterase SMALL (NEGATIVE) Urine WBC (Auto) 26-50 (0-5) /HPF Urine RBC (Auto) 3-5 (0-2) /HPF U Epithel Cells (Auto) RARE (FEW) /HPF Urine Bacteria (Auto) RARE (NEGATIVE) /HPF Urine Mucus (Auto) SLIGHT (NEGATIVE) /HPF Urine Culture Reflexed YES (NO) Urine Glucose 50 (NEGATIVE) mg/dL 10/30/19 Range/Units 04:59 WBC (4.0-10.5) K/mm3 RBC (4.1-5.4) M/mm3 Hgb (12.0-16.0) gm/dl Hct (35-47) % MCV (78-100) fl MCH (26-32) pg MCHC (32-36) g/dl RDW (11.5-14.0) % Plt Count (150-450) K/mm3 MPV (7.5-11.0) fl Gran % (36.0-66.0) % Eos # (Auto) (0-0.5) Absolute Lymphs (auto) (1.0-4.6) Absolute Monos (auto) (0.0-1.3) Lymphocytes % (24.0-44.0) % Monocytes % (0.0-12.0) % Eosinophils % (0.00-5.0) % Basophils % (0.0-0.4) % Absolute Granulocytes (1.4-6.9) Basophils # (0-0.4) PT (9.95-12.35) SECONDS INR (0.8-3.0) Sodium 133 L (137-145) mmol/L Potassium 4.9 (3.5-5.1) mmol/L Chloride 101 (98-107) mmol/L Carbon Dioxide 28 (22-30) mmol/L Anion Gap 8.7 (5-15) MEQ/L BUN 18 H (7-17) mg/dL Creatinine 1.19 H (0.52-1.04) mg/dL Estimated GFR 50.6 ML/MIN Glucose 183 H (74-106) mg/dL Hemoglobin A1c (4.5-6.0) % Calcium 8.4 (8.4-10.2) mg/dL Total Bilirubin 0.50 (0.2-1.3) mg/dL Direct Bilirubin (0.0-0.4) mg/dL AST 22 (14-36) U/L ALT 10 (0-35) U/L Alkaline Phosphatase 165 H (38-126) U/L Serum Total Protein 6.7 (6.3-8.2) g/dL Albumin 2.9 L (3.5-5.0) g/dL Urine Color (YELLOW) Urine Appearance (CLEAR) Urine pH (5-6) Ur Specific Queen (1.005-1.025) Urine Protein (Negative) Urine Ketones (NEGATIVE) Urine Blood (0-5) Ubaldo/ul Urine Nitrite (NEGATIVE) Urine Bilirubin (NEGATIVE) Urine Urobilinogen (0-1) mg/dL Ur Leukocyte Esterase (NEGATIVE) Urine WBC (Auto) (0-5) /HPF Urine RBC (Auto) (0-2) /HPF U Epithel Cells (Auto) (FEW) /HPF Urine Bacteria (Auto) (NEGATIVE) /HPF Urine Mucus (Auto) (NEGATIVE) /HPF Urine Culture Reflexed (NO) Urine Glucose (NEGATIVE) mg/dL Radiology Exams: Radiology Procedures Category Date Time Status ABDOMINAL PARACENTESIS [US] Routine Exams 10/30/19 17:42 Taken CHEST 2 VIEWS (PA AND LAT) Routine Exams 10/30/19 17:42 Completed CHEST 2 VIEWS (PA AND LAT) Stat Exams 10/29/19 14:04 Completed Multi-Disciplinary Progress Notes: Multi-Disciplinary Progress Notes 10/30/19 11:31 Respiratory Note by Jamee Del Angel PT O2 SAT 88% ON ROOM AIR AT REST. O2 SAT 99% ON 2LPM NC AT REST Initialized on 10/30/19 11:31 - END OF NOTE 10/30/19 11:13 Case Management Note by Makenzie Simpson S/W ANTHONY AT [facility] NOTIFIED THAT PATIENT IS HERE FOR OBS. SHE VERIFIED UNDERSTANDING NURSING NEEDS TO CONTACT THEM AT TIME OF DC AND FAX THEM THE DC INSTRUCTIONS/MED LIST AT THAT TIME Initialized on 10/30/19 11:13 - END OF NOTE 10/30/19 11:11 Case Management Note by Makenzie Simpson CALLED AND S/W [id number]- PATIENT RETURNED EQUIPMENT AND SIGNED AN "AMA" PAPER. IN ORDER TO GET OXYGEN SET BACK UP IT WILL NEED TO BE TREATED LIKE A NEW ORDER/NEW PATIENT. S/W PATIENT REGARDING THIS- [facility] TRONCOSO OFFICE NOTIFIED THAT DOCUMENTATION WILL BE NEEDED FOR NEW OXYGEN. ORDER PLACED FOR RT TO REQUALIFY PATIENT. Initialized on 10/30/19 11:11 - END OF NOTE Assessment/Plan (1) Ascites Current Visit: Yes Status: Acute Assessment & Plan: Planning for paracentesis today. Code(s): R18.8 - OTHER ASCITES (2) COPD with hypoxia Current Visit: Yes Status: Acute Assessment & Plan: Will need qualified for home O2. Code(s): J44.9 - CHRONIC OBSTRUCTIVE PULMONARY DISEASE, UNSPECIFIED; R09.02 - HYPOXEMIA (3) Diabetes type 2, controlled Current Visit: No Status: Acute Qualifiers: Diabetes mellitus fdc insulin use: with fdc use Diabetes mellitus complication status: with skin complications Assessment & Plan: Well controlled. Code(s): E11.9 - TYPE 2 DIABETES MELLITUS WITHOUT COMPLICATIONS
--- NOTE | 2019-10-30 13:15 | HP ---
HISTORY OF PRESENT ILLNESS: This is a 54 year-old patient of mine who presented to the emergency department complaining of increasing abdominal fluid. She reports that she has had some nausea too that is better with the nausea medicine they gave her in the emergency room. The emergency room doctor called me for admission because she needed to have paracentesis to remove some of the fluid and also when she was resting was found to be 81% on room air with good correlation with the wave form and did not have home oxygen at home as previously ordered. The patient reports because she was moving, she had called the company to take it back because she was not sure where she is going to be staying. She reports now she is living in one of the high-rise towers and has an apartment by herself so has stable housing at this time. The patient reports she has been following up with material attendant and is supposed to be seen at about possible transplant soon. She denies any chest pain or shortness of breath, some abdominal pain but not severe. She has been urinating okay. No other concerns at this time. REVIEW OF SYSTEMS: As noted in the history of present illness. MEDICATIONS: Please see the home medication reconciliation list which I have reviewed. ALLERGIES: ADHESIVE TAPE. BEE STING. PAST MEDICAL HISTORY: Cirrhosis of unknown etiology. Asthma. Chronic obstructive pulmonary disease. Depression. Diabetes mellitus type 2. Iron deficiency anemia. PAST SURGICAL HISTORY: Laparoscopy. Hysterectomy. Cholecystectomy. section x3. Amputation of her left leg through tibia and fibula February 2019. Tonsillectomy. Upper endoscopy July 2019 with small esophageal varices. No gastric varices. Surgery on her left foot prior to the amputation. SOCIAL HISTORY: She currently lives alone, smokes one-fourth pack per day. FAMILY HISTORY: Noncontributory. PHYSICAL EXAMINATION: VITAL SIGNS: Temperature current 97.6F, heart rate 110, respiratory rate 20, blood pressure 187/92. Oxygen saturation 81 to 94% on room air with 2 liters nasal cannula. GENERAL: The patient was lying in in bed a pleasant talkative lady in no acute distress. CVS: She has a regular rate and rhythm. No murmurs, gallops or rubs. CHEST: Scattered crackles throughout with equal breath sounds. No retractions. No tachypnea. Clear to auscultation bilaterally. No crackles or wheezes. ABDOMEN: Distended with enlarged liver palpable. EXTREMITIES: Left above the knee amputation. Right lower extremity no clubbing, cyanosis or edema. LABORATORY DATA AND TESTS: Hemoglobin 9.8. International normalized ratio 1.2. Sodium 132, creatinine 1.09, glucose 222, hemoglobin A1C 6.2. UA with 26 to 25 white blood cells. Urine culture in lab. X-ray revealed minimal clearing of the previous diffuse left lung interstitial alveolar opacities with mild residual. Please see the radiologist report for full details. ASSESSMENT AND PLAN: 1) CHRONIC OBSTRUCTIVE PULMONARY DISEASE WITH HYPOXIA: She is going to require oxygen at home and this will need to be ordered and set up through respiratory therapy and/or landscape architect and planner. The patient is agreeable to this. She will need it all the time since she needs it at rest so she will need it when she is up and mobile as well. Will continue her home medications. 2) CIRRHOSIS WITH ABDOMINAL ASCITIES: Will plan for an ultrasound guided paracentesis tomorrow, continue to follow up with the material attendant and liver specialist as scheduled. 3) DIABETES MELLITUS TYPE 2: Will continue with her home medications. 4) ANEMIA: Continue with her home medications. 5) RENAL INSUFFICIENCY: Will continue to monitor closely. 6) HISTORY OF IRON DEFICIENCY ANEMIA: Continue with her home medications.
[2019-10-30] MEDS: Zocor 10MG PO SCH (21:40)
[2019-10-30] MEDS: Cymbalta 30 MG Capsule PO SCH (21:40)
[2019-10-30] MEDS: Lantus Insulin SQ SCH (21:41)
[2019-10-31] MEDS: SYNTHROID 25 MCG PO SCH (06:19)
[2019-10-31 06:51] VITALS: BP 99/49; O2SAT 98
[2019-10-31] MEDS: Spiriva 18 Mcg/Cap Inhaler IH SCH (06:54)
[2019-10-31 06:57] VITALS: PULSE 53
--- NOTE | 2019-10-31 08:44 | PCM.DCORD ---
- Discharge Discharge Date: 10/31/19 Disposition: Home, Self-Care Condition: Fair Prescriptions: Continue Duloxetine HCl 30 mg [Cymbalta 30 MG Capsule] 60 mg PO HS Omeprazole 20 MG [Prilosec 20 mg] 20 mg PO DAILY Albuterol Sulfate [Proair Hfa] 2 puff IH Q4HPRN PRN PRN Reason: RESP Pravastatin Sodium [Pravachol] 10 mg PO HS Gabapentin [Gralise] 600 mg PO TID Docusate Sodium 100 mg [Colace 100 MG] 100 mg PO HSPRN PRN PRN Reason: Constipation Ergocalciferol (Vitamin D2) [Vitamin D] 50,000 units PO UD Hydroxyzine HCl 10 mg PO BID Ferrous Sulfate 325 mg PO BID Levothyroxine Sodium 25 Mcg [Synthroid 25 Mcg] 25 mcg PO DAILY Lisinopril 5 mg [Zestril 5 MG] 5 mg PO DAILY #90 tablet Ondansetron ODT 4 MG [Zofran Odt 4 mg] 4 mg PO Q6H PRN PRN #10 tab.rapdis PRN Reason: Vomiting Insulin Lispro [Humalog Kwikpen U-100] 8 unit SQ TIDWMEALS #3 insuln.pen Metoprolol Tartrate 25 mg [Lopressor 25MG Tab] 1 tab PO BID Insulin Glargine [Lantus Insulin] 30 units SQ HS Tiotropium Sturtevant [Spiriva Respimat] 1 puff IH DAILY Lactulose [Lactulose 20 gm/30Ml Ud Cup] 20 gm PO TID Furosemide 40 mg [Lasix 40 MG] 40 mg PO BID Additional Instructions: 2L oxygen at all times. Follow up with: TERRY TRONCOSO [Primary Care Provider] - 1 Week
[2019-10-31] MEDS: Protonix 40MG Tablet PO SCH (09:00)
[2019-10-31] MEDS: Zestril 5 MG PO SCH (09:00)
--- NOTE | 2019-10-31 09:00 | XRAY ---
Indication: Ascites. Informed consent obtained. Patient placed supine. Initial 4 quadrant abdominal ultrasound performed for localization. Largest pocket in the right mid abdomen. The abdominal wall was prepped and draped in sterile fashion. 1% lidocaine plain was used for local anesthesia. Tiny skin incision made. 5 Kisw[place]ili EdPuzzleeh paracentesis needle/catheter was then percutaneously inserted. Once fluid was aspirating, the outer catheter was then advanced with the inner needle removed. Catheter was connected to a Vacutainer. Approximately 7 L of clear almaz colored transudative fluid aspirated and disposed of properly. Repeat sonogram demonstrates marked improvement with small residual. Catheter removed. Band-Aid applied over the puncture site. Patient was discharged in good condition. Impression: Technically successful ultrasound-guided abdominal paracentesis for therapeutic purpose. No immediate complications or blood loss.
[2019-10-31] MEDS: HUMALOG SQ SCH (09:01)
[2019-10-31] MEDS: Lopressor 25MG Tab PO SCH (09:01)
[2019-10-31] MEDS: NEURONTIN 300 MG PO SCH (09:01)
[2019-10-31] MEDS: ATARAX 25 MG PO SCH (09:01)
[2019-10-31] MEDS: Lasix 40 MG PO SCH (09:01)
[2019-10-31] MEDS: FEOSOL 325 MG PO SCH (09:01)
[2019-10-31] MEDS: HUMALOG SQ PRN (09:02)
[2019-10-31] MEDS: LACTULOSE 20 GM/30ML UD CUP PO SCH (09:04)
[2019-11-04] MEDS ORDERED: VITAMIN D2 PO SCH (07:15)
== END 2019-10-31 10:10 | disposition home or self-care (01) ==
LOC: ED 13:34 → MED SURG 17:25
PROVIDERS: ADMIT Internal Medicine; ATTEND Internal Medicine
DX: J44.9 Chronic obstructive pulmonary disease, unspecified (principal); R09.02 Hypoxemia; R18.8 Other ascites; E11.9 Type 2 diabetes mellitus without complications; K74.60 Unspecified cirrhosis of liver; N28.9 Disorder of kidney and ureter, unspecified; Z89.612 Acquired absence of left leg above knee; D64.9 Anemia, unspecified
CPT/HCPCS: 36415; 49083; 71046; 80048; 80053; 80076; 81001; 82962; 83036; 85025; 85610; 87086; 93005; 94150; 94640; 94760; 96374; 99285; G0378; J1817; J2405; J7609; A9270-GY

== ENCOUNTER 2020-02-04 17:04 | Inpatient (IN) | payer MEDICARE ==
[2020-02-04 17:47] LABS: Absolute Neutrophil Ct (ANC) 4.67 (1.4-6.9); BASOPHIL % 0.4 % (0.0-0.4); Basophil (Absolute #) 0.03 (0-0.4); Eosinophil % 1.9 % (0.00-5.0); Eosinophil (Absolute #) 0.13 (0-0.5); Hematocrit 33.6 % (35-47); Hemoglobin 11.1 gm/dl (12.0-16.0); Lymphocyte (Absolute #) 1.56 (1.0-4.6); Mean Cell Volume 84.2 fl (78-100); Mean Corpuscular Hemoglobin 27.8 pg (26-32); Mean Platelet Volume 9.5 fl (7.5-11.0); Monocyte (Absolute #) 0.38 (0.0-1.3); Monocytes % 5.6 % (0.0-12.0); Neutrophil % 69.1 % (36.0-66.0); Platelet Count 146 K/mm3 (150-450); Red Blood Count 3.99 M/mm3 (4.1-5.4); Red Cell Distribution Width 15.5 % (11.5-14.0); White Blood Count 6.8 K/mm3 (4.0-10.5)
[2020-02-04] MEDS ORDERED: Zofran 4 MG/2 ML VIAL IV ONE (17:54)
--- NOTE | 2020-02-04 18:01 | ERPHSYRPT ---
- History of Present Illness Time Seen by Provider: 02/04/20 17:30 Historian: patient Exam Limitations: no limitations Patient Subjective Stated Complaint: vomiting Triage Nursing Assessment: Patient wheeled back to ED via w/c and transferred self to bed. Patient A+O x3. Patient's skin pink, warm and dry. Patient complains of vomiting for one week. Patient states she is unable to keep anything down today. Patient also complains of abdominal pain constant sharp, stabbing pain in the upper abdomen. Abdomen soft and round with BS X 4. Physician History: Patient is a 54-year-old female with history of hepatitis C, chronic renal insufficiency and diabetes presents to our ED with complaints of vomiting x1 week. Pain is associated with a sharp stabbing sensation in her right upper quadrant. Patient has to get routine paracentesis. Her last paracentesis was approximately 10 days ago. Patient denies fever. No trauma. No diarrhea. No chest pain or shortness of breath. Symptoms are progressive. Symptoms are moderate in intensity. No specific worsening or improving factors. Patient voices no other complaints at this time. Timing/Duration: week(s) (1 week ) Activities at Onset: none Quality: aching Abdominal Pain Onset Location: RUQ Pain Radiation: no radiation Severity of Pain-Max: moderate Severity of Pain-Current: mild Modifying Factors: Improves With: nothing Associated Symptoms: vomiting, No chest pain, No diarrhea, No fever/chills, No headache, No shortness of breath, No syncope Previous symptoms: same symptoms as today Allergies/Adverse Reactions: adhesive tape Allergy (Mild, Verified 02/04/20 17:21) redness bee stings Allergy (Mild, Uncoded 02/04/20 17:21) Anaphylactic Reaction trouble breathing and swelling. Home Medications: Duloxetine HCl 30 mg [Cymbalta 30 MG Capsule] 60 mg PO HS 11/17/12 [ History] Albuterol Sulfate [Proair Hfa] 2 puff IH Q4HPRN PRN 04/21/15 [History] Omeprazole 20 MG [Prilosec 20 mg] 20 mg PO DAILY 04/21/15 [History] Pravastatin Sodium [Pravachol] 10 mg PO HS 02/07/16 [History] Gabapentin [Gralise] 600 mg PO TID 11/11/16 [History] Docusate Sodium 100 mg [Colace 100 MG] 100 mg PO HSPRN PRN 01/18/19 [ History] Ergocalciferol (Vitamin D2) [Vitamin D] 50,000 units PO UD 01/18/19 [History] Ferrous Sulfate 325 mg PO BID 01/18/19 [History] Hydroxyzine HCl 10 mg PO BID 01/18/19 [History] Levothyroxine Sodium 25 Mcg [Synthroid 25 Mcg] 25 mcg PO DAILY 01/18/19 [ History] Insulin Glargine [Lantus Insulin] 30 units SQ HS 09/27/19 [History] Metoprolol Tartrate 25 mg [Lopressor 25MG Tab] 1 tab PO BID 09/27/19 [ History] Tiotropium [place] [Spiriva Respimat] 1 puff IH DAILY 10/14/19 [History] Furosemide 40 mg [Lasix 40 MG] 40 mg PO BID 10/29/19 [History] Lactulose [Lactulose 20 gm/30Ml Ud Cup] 20 gm PO TID 10/29/19 [History] Hx Tetanus, Diphtheria Vaccination/Date Given: Yes Hx Influenza Vaccination/Date Given: Yes Hx Pneumococcal Vaccination/Date Given: Yes Immunizations Up to Date: Yes Travel Risk - International Travel Have you traveled outside of the country in past 3 weeks: No Have you or anyone close to you been diagnosed with or: No Do your reside in a community with a known COVID-19 case?: Yes If Yes where:: [facility] - Coronavirus Screening Has patient experienced Coronavirus symptoms: No - Review of Systems Constitutional: No Symptoms, No Fever, No Chills Eyes: No Symptoms Ears, Nose, & Throat: No Symptoms Respiratory: No Symptoms, No Cough, No Dyspnea Cardiac: No Symptoms, No Chest Pain, No Edema, No Syncope Abdominal/Gastrointestinal: No Symptoms, Nausea, Vomiting, No Abdominal Pain, No Diarrhea Genitourinary Symptoms: No Symptoms, No Dysuria Musculoskeletal: No Symptoms, No Back Pain, No Neck Pain Skin: No Symptoms, No Rash Neurological: No Symptoms, No Dizziness, No Focal Weakness, No Sensory Changes Psychological: No Symptoms Endocrine: No Symptoms Hematologic/Lymphatic: No Symptoms Immunological/Allergic: No Symptoms All Other Systems: Reviewed and Negative - Past Medical History Pertinent Past Medical History: Yes Neurological History: No Pertinent History ENT History: No Pertinent History Cardiac History: Hypertension Respiratory History: Asthma, COPD, Pneumonia Endocrine Medical History: Diabetes Type II Musculoskeletal History: Fractures GI Medical History: GERD, Other History: No Pertinent History Psycho-Social History: Anxiety, Depression Female Reproductive Disorders: No Pertinent History Other Medical History: left ankle fx with mult surgeries, in February 2019 bka,. ascites. fatty liver - Past Surgical History Past Surgical History: Yes Neuro Surgical History: No Pertinent History Cardiac: No Pertinent History Respiratory: No Pertinent History Gastrointestinal: Cholecystectomy, Exploratory Laparoscopy Genitourinary: No Pertinent History Musculoskeletal: No Pertinent History, Amputation Female Surgical History: Section, Hysterectomy Other Surgical History: foot surgery, screw placed in left big toe, removal, and antibiotic bead placement. mult lt foot surgeries. LT BKA February 2019 - Social History Smoking Status: Current every day smoker How long have you smoked: 34 Exposure to second hand smoke: No Drug Use: none Patient Lives Alone: Yes - Female History Hx Now: No - Nursing Vital Signs Nursing Vital Signs: Initial Vital Signs Temperature 97.9 F 02/04/20 17:22 Pulse Rate 95 H 02/04/20 17:22 Respiratory Rate 18 02/04/20 17:22 Blood Pressure 165/86 02/04/20 17:22 O2 Sat by Pulse Oximetry 96 02/04/20 17:22 Pain Scale Pain Intensity 6 - Physical Exam General Appearance: no apparent distress, alert Eye Exam: PERRL/EOMI, eyes nml inspection Ears, Nose, Throat Exam: normal ENT inspection, pharynx normal, moist mucous membranes Neck Exam: normal inspection, non-tender, supple, full range of motion Respiratory Exam: normal breath sounds, lungs clear, No respiratory distress Cardiovascular Exam: regular rate/rhythm, normal heart sounds Gastrointestinal/Abdomen Exam: soft, other (Distended abdomen, likely ascitic fluid from cirrhosis/hep C history.), No tenderness, No mass Back Exam: normal inspection, normal range of motion, No CVA tenderness, No vertebral tenderness Extremity Exam: normal inspection, normal range of motion, pelvis stable, amputations (Left above-knee amputation. Right lower extremity 2+ pitting edema. Negative Homans sign.), swelling, No contusions, No calf tenderness, No deformities, No lacerations, No parasthesia, No paralysis, No dipak's sign, No tenderness Neurologic Exam: alert, 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, cooperative, normal mood/affect, nml cerebellar function, sensation nml, No motor deficits Skin Exam: normal color, warm, dry, No petechiae, No jaundice SpO2 Interpretation: normal SpO2: 96 O2 Delivery: Room Air - Course Nursing assessment & vital signs reviewed: Yes EKG Interpreted by Me: RATE (85), Sinus Rhythm, NORMAL AXIS, NORMAL INTERVALS - Radiology Exams Chest X-ray Interpretation: Teleradiologist Report (No change compared to 10/28/2019. Diffuse interstitial alveolar opacities with focal right base infiltrate versus atelectasis.) - CT Exams Abdomen/Pelvis CT Interpretation: Tele-radiologist Report (No change since 07/11/2019. Stable bibasilar interstitial alveolar opacities, cirrhosis, splenomegaly and large abdomen pelvis ascites.) Ordered Tests: Active Orders 24 hr Category Date Time Status EKG-ER Only STAT Care 02/04/20 17:34 Active IV Insertion STAT Care 02/04/20 17:34 Active ABDOMEN AND PELVIS W/0 CONTRAS [CT] Stat Exams 02/04/20 17:35 Taken CHEST 1 VIEW (PORTABLE) Stat Exams 02/04/20 17:35 Taken BLOOD CULTURE Stat Lab 02/04/20 19:01 Received CBC W DIFF Stat Lab 02/04/20 17:42 Completed CMP Stat Lab 02/04/20 17:42 Completed CULTURE,URINE Stat Lab 02/04/20 17:38 Received LIPASE Stat Lab 02/04/20 17:42 Completed TROPONIN Q3H Lab 02/04/20 17:42 Completed TROPONIN Q3H Lab 02/04/20 20:45 Ordered TROPONIN Q3H Lab 02/04/20 23:45 Ordered TROPONIN Q3H Lab 02/05/20 02:45 Ordered TROPONIN Q3H Lab 02/05/20 05:45 Ordered UA W/RFX UR CULTURE Stat Lab 02/04/20 17:38 Completed Transfer Order Routine Transfer 02/04/20 Ordered Medication Summary Generic Name Dose Route Start Last Admin Trade Name Freq PRN Reason Stop Dose Admin Azithromycin / Sodium Chloride 250 mls @ 125 mls/hr 02/04/20 19:02 IV 02/04/20 21:01 STAT ONE Ceftriaxone Sodium/Dextrose 2 g in 50 mls @ 100 mls/hr 02/04/20 19:02 19:12 Rocephin 2 Gm-D5w 50ml Bag IV 02/04/20 19:31 100 ml/hr STAT STA 100 mls/hr Administration Azithromycin 500 mg in 250 mls @ 250 mls/hr 02/04/20 19:23 Zithromax 500 Mg/ 250 Ml Nacl Premix IV 02/04/20 20:22 STAT STA Discontinued Medications Generic Name Dose Route Start Last Admin Trade Name Freq PRN Reason Stop Dose Admin Ceftriaxone Sodium/Dextrose Confirm 02/04/20 19:05 Rocephin 2 Gm-D5w 50ml Bag Administered 02/04/20 19:06 Dose 2 g in 50 mls @ ud IV .STK-MED ONE Ondansetron HCl 4 mg 02/04/20 17:54 02/04/20 18:05 Zofran 4 Mg/2 Ml Vial IV 02/04/20 17:55 4 mg STAT ONE Administration Ondansetron HCl Confirm 02/04/20 18:04 Zofran 4 Mg/2 Ml Vial Administered 02/04/20 18:05 Dose 4 mg .ROUTE .STK-MED ONE Lab/Rad Data: Laboratory Result Diagrams 02/04/20 17:42 02/04/20 17:42 Laboratory Results 02/04/20 02/04/20 02/04/20 Range/Units 17:42 17:42 17:42 WBC 6.8 (4.0-10.5) K/mm3 RBC 3.99 L (4.1-5.4) M/mm3 Hgb 11.1 L (12.0-16.0) gm/dl Hct 33.6 L (35-47) % MCV 84.2 (78-100) fl MCH 27.8 (26-32) pg MCHC 33.0 (32-36) g/dl RDW 15.5 H (11.5-14.0) % Plt Count 146 L (150-450) K/mm3 MPV 9.5 (7.5-11.0) fl Gran % 69.1 H (36.0-66.0) % Eos # (Auto) 0.13 (0-0.5) Absolute Lymphs (auto) 1.56 (1.0-4.6) Absolute Monos (auto) 0.38 (0.0-1.3) Lymphocytes % 23.0 L (24.0-44.0) % Monocytes % 5.6 (0.0-12.0) % Eosinophils % 1.9 (0.00-5.0) % Basophils % 0.4 (0.0-0.4) % Absolute Granulocytes 4.67 (1.4-6.9) Basophils # 0.03 (0-0.4) Sodium 133 L (137-145) mmol/L Potassium 4.7 (3.5-5.1) mmol/L Chloride 104 (98-107) mmol/L Carbon Dioxide 23 (22-30) mmol/L Anion Gap 10.2 (5-15) MEQ/L BUN 14 (7-17) mg/dL Creatinine 1.15 H (0.52-1.04) mg/dL Estimated GFR 52.7 ML/MIN Glucose 254 H (74-106) mg/dL Calcium 8.6 (8.4-10.2) mg/dL Total Bilirubin 0.50 (0.2-1.3) mg/dL AST 19 (14-36) U/L ALT 10 (0-35) U/L Alkaline Phosphatase 203 H (38-126) U/L Troponin I < 0.012 (0.000-0.034) ng/mL Serum Total Protein 7.6 (6.3-8.2) g/dL Albumin 3.3 L (3.5-5.0) g/dL Lipase 93 (23-300) U/L Urine Color (YELLOW) Urine Appearance (CLEAR) Urine pH (5-6) Ur Specific [place] (1.005-1.025) Urine Protein (Negative) Urine Ketones (NEGATIVE) Urine Blood (0-5) Ubaldo/ul Urine Nitrite (NEGATIVE) Urine Bilirubin (NEGATIVE) Urine Urobilinogen (0-1) mg/dL Ur Leukocyte Esterase (NEGATIVE) Urine WBC (Auto) (0-5) /HPF Urine RBC (Auto) (0-2) /HPF U Epithel Cells (Auto) (FEW) /HPF Urine Bacteria (Auto) (NEGATIVE) /HPF Urine Mucus (Auto) (NEGATIVE) /HPF Urine Culture Reflexed (NO) Urine Glucose (NEGATIVE) mg/dL 02/04/20 Range/Units 17:38 WBC (4.0-10.5) K/mm3 RBC (4.1-5.4) M/mm3 Hgb (12.0-16.0) gm/dl Hct (35-47) % MCV (78-100) fl MCH (26-32) pg MCHC (32-36) g/dl RDW (11.5-14.0) % Plt Count (150-450) K/mm3 MPV (7.5-11.0) fl Gran % (36.0-66.0) % Eos # (Auto) (0-0.5) Absolute Lymphs (auto) (1.0-4.6) Absolute Monos (auto) (0.0-1.3) Lymphocytes % (24.0-44.0) % Monocytes % (0.0-12.0) % Eosinophils % (0.00-5.0) % Basophils % (0.0-0.4) % Absolute Granulocytes (1.4-6.9) Basophils # (0-0.4) Sodium (137-145) mmol/L Potassium (3.5-5.1) mmol/L Chloride (98-107) mmol/L Carbon Dioxide (22-30) mmol/L Anion Gap (5-15) MEQ/L BUN (7-17) mg/dL Creatinine (0.52-1.04) mg/dL Estimated GFR ML/MIN Glucose (74-106) mg/dL Calcium (8.4-10.2) mg/dL Total Bilirubin (0.2-1.3) mg/dL AST (14-36) U/L ALT (0-35) U/L Alkaline Phosphatase (38-126) U/L Troponin I (0.000-0.034) ng/mL Serum Total Protein (6.3-8.2) g/dL Albumin (3.5-5.0) g/dL Lipase (23-300) U/L Urine Color YELLOW (YELLOW) Urine Appearance SLIGHTLY CLOUDY (CLEAR) Urine pH 5.0 (5-6) Ur Specific [place] 1.015 (1.005-1.025) Urine Protein 100 (Negative) Urine Ketones NEGATIVE (NEGATIVE) Urine Blood SMALL (0-5) Ubaldo/ul Urine Nitrite NEGATIVE (NEGATIVE) Urine Bilirubin NEGATIVE (NEGATIVE) Urine Urobilinogen NEGATIVE (0-1) mg/dL Ur Leukocyte Esterase TRACE (NEGATIVE) Urine WBC (Auto) 11-15 (0-5) /HPF Urine RBC (Auto) 3-5 (0-2) /HPF U Epithel Cells (Auto) RARE (FEW) /HPF Urine Bacteria (Auto) NONE (NEGATIVE) /HPF Urine Mucus (Auto) SLIGHT (NEGATIVE) /HPF Urine Culture Reflexed YES (NO) Urine Glucose 50 (NEGATIVE) mg/dL - Progress Progress: improved Progress Note: 02/04/20 19:[address] Jamil covering the cold unit. We will admit patient to COVID unit pending formal testing. In light of hypoxia right upper quadrant pain and right base infiltrates we will initiate antibiotics for pneumonia. Antibiotics include Rocephin which will cover since UTI as well. Plan of care discussed with patient. She agrees to admission to [facility] for further evaluation and treatment. Discussed with Dr.: Kishore Will see patient in: hospital (observation) Counseled pt/family regarding: lab results, diagnosis, rad results - Departure Departure Disposition: Observation Clinical Impression: Pneumonia, Ascites, Hypoxia, Vomiting, UTI (urinary tract infection) Condition: Stable Critical Care Time: No Referrals: TERRY TRONCOSO [Primary Care Provider] -
[2020-02-04] MEDS ORDERED: Zofran 4 MG/2 ML VIAL ONE (18:04)
[2020-02-04 18:13] LABS: Appearance SLIGHTLY CLOUDY (CLEAR); Bilirubin NEGATIVE (NEGATIVE); Blood SMALL Ery/ul (0-5); Epithelial Cells RARE /HPF (FEW); Glucose 50 mg/dL (NEGATIVE); Ketones NEGATIVE (NEGATIVE); Leukocyte Esterase TRACE (NEGATIVE); Mucus SLIGHT /HPF (NEGATIVE); Nitrite NEGATIVE (NEGATIVE); Protein,Urine Dip 100 (Negative); Specific Gravity 1.015 (1.005-1.025); Urobilinogen NEGATIVE mg/dL (0-1)
[2020-02-04 18:30] LABS: ALBUMIN 3.3 g/dL (3.5-5.0); ANION GAP 10.2 MEQ/L (5-15); BILIRUBIN,TOTAL 0.5 mg/dL (0.2-1.3); Calcium 8.6 mg/dL (8.4-10.2); Creatinine 1 1.15 mg/dL (0.52-1.04); Potassium 4.7 mmol/L (3.5-5.1); Total Protein 7.6 g/dL (6.3-8.2)
[2020-02-04] MEDS ORDERED: ROCEPHIN 2 Gm-D5w 50ML BAG** 2 G/50 ML IVPB IV STA (19:02)
[2020-02-04] MEDS ORDERED: ZITHROMAX IV 500 MG*** 0 MG in Sodium Chloride 0.9% 250 ML 250 ML IV ONE (19:02)
[2020-02-04] MEDS ORDERED: ROCEPHIN 2 Gm-D5w 50ML BAG** 2 G/50 ML IVPB IV ONE (19:05)
[2020-02-04] MEDS ORDERED: Zithromax 500 MG/ 250 ML NaCl Premix 500 MG/250 ML IVPB IV STA (19:23)
[2020-02-04] MEDS ORDERED: Zithromax 500 MG/ 250 ML NaCl Premix 500 MG/250 ML IVPB IV ONE (19:41)
[2020-02-05 06:17] LABS: BASOPHIL % 0.6 % (0.0-0.4); Basophil (Absolute #) 0.04 (0-0.4); Eosinophil % 3.5 % (0.00-5.0); Eosinophil (Absolute #) 0.24 (0-0.5); Hematocrit 31.4 % (35-47); Lymphocyte (Absolute #) 1.89 (1.0-4.6); Lymphocytes % 27.8 % (24.0-44.0); Mean Cell Volume 86.5 fl (78-100); Mean Corpuscular Hemoglobin 27.5 pg (26-32); Mean Corpuscular Hgb Concent. 31.8 g/dl (32-36); Mean Platelet Volume 9.6 fl (7.5-11.0); Monocyte (Absolute #) 0.52 (0.0-1.3); Monocytes % 7.7 % (0.0-12.0); Neutrophil % 60.4 % (36.0-66.0); Platelet Count 117 K/mm3 (150-450); Red Blood Count 3.63 M/mm3 (4.1-5.4); Red Cell Distribution Width 15.6 % (11.5-14.0); White Blood Count 6.8 K/mm3 (4.0-10.5)
[2020-02-05 07:03] LABS: ALBUMIN 2.6 g/dL (3.5-5.0); ANION GAP 8.7 MEQ/L (5-15); BILIRUBIN,TOTAL 0.4 mg/dL (0.2-1.3); Calcium 8.3 mg/dL (8.4-10.2); Creatinine 1 1.21 mg/dL (0.52-1.04); Potassium 5.1 mmol/L (3.5-5.1); Total Protein 6.4 g/dL (6.3-8.2)
--- NOTE | 2020-02-05 08:38 | XRAY ---
Indication: Abdomen pain, nausea, and vomiting. Multiple contiguous axial images obtained through the abdomen and pelvis without contrast as ordered. Comparison: July 11, 2019. Lung bases again demonstrates diffuse scattered interstitial alveolar opacities with bronchiectasis. Heart is not enlarged. Noncontrasted stomach and bowel loops appear nonobstructed. Grossly stable cirrhotic liver again with significant abdomen/pelvic ascites, 16 cm splenomegaly, and splenorenal varices. No free air. Again previous reported cholecystectomy and hysterectomy. Remaining pancreas, adrenal glands, kidneys, ureters, and bladder appear unremarkable for noncontrast exam. Stable mild aortoiliac calcifications without AAA. Osseous structures intact again with mild degenerative changes throughout the spine. Stable small umbilical and tiny left periumbilical fluid filled ventral hernias. Impression: 1. Stable cirrhotic liver with significant ascites, splenomegaly, and splenorenal varices. 2. Stable bibasilar pulmonary interstitial opacities and bronchiectasis. 3. Stable ventral/periumbilical ventral hernias. 4. No new or acute intra-abdominal/pelvic abnormalities on this noncontrast exam.
--- NOTE | 2020-02-05 08:39 | XRAY ---
Indication: Cough, nausea, and vomiting. Comparison: October 30, 2019. Portable chest unchanged again demonstrating bilateral interstitial alveolar opacities and right base infiltrate/atelectasis. Heart is not enlarged. Bony thorax intact. No new cardiopulmonary abnormalities.
[2020-02-05] MEDS ORDERED: TYLENOL 325 MG PO PRN (09:35)
[2020-02-05] MEDS ORDERED: VITAMIN D2 PO SCH (10:00)
[2020-02-05] MEDS ORDERED: Ventolin Hfa MDI IH PRN (10:10)
[2020-02-05] MEDS ORDERED: Colace 100 MG PO PRN (10:10)
[2020-02-05] MEDS ORDERED: ZOFRAN ODT 4 MG PO PRN (10:10)
[2020-02-05] MEDS ORDERED: VENTOLIN COMMON CANISTER IH PRN (10:21)
[2020-02-05] MEDS: Spiriva 18 Mcg/Cap Inhaler IH SCH ×2 (10:41→12:56)
[2020-02-05] MEDS: NEURONTIN 300 MG PO SCH ×3 (10:44→21:27)
[2020-02-05] MEDS: ATARAX 25 MG PO SCH ×2 (10:44→21:27)
[2020-02-05] MEDS: Lasix 40 MG PO SCH ×2 (10:45→16:35)
[2020-02-05] MEDS: Lopressor 25MG Tab PO SCH ×2 (10:45→21:27)
[2020-02-05] MEDS: PROTONIX 40 MG IV IV SCH (10:45)
[2020-02-05] MEDS: Zestril 5 MG PO SCH (10:45)
[2020-02-05] MEDS: LACTULOSE 20 GM/30ML UD CUP PO SCH ×3 (10:45→21:28)
[2020-02-05] MEDS: FEOSOL 325 MG PO SCH ×2 (10:45→21:26)
[2020-02-05] MEDS: SYNTHROID 25 MCG PO SCH (10:47)
--- NOTE | 2020-02-05 10:47 | HP ---
HISTORY OF PRESENT ILLNESS: This is a 54 year-old patient of mine with a history of liver failure. She is not positive for hepatitis C and is following with a liver specialist in [place] for possible transplant. She reports she started to have vomiting the past week that was worse yesterday and has just felt really drained for the past month. She currently has home health. She denies any recent hospitalizations. She reports she has had a cough but no fever. She is taking fluids okay but reports she just vomits them back up. She denies any diarrhea. No rashes. She has itching of her skin. She reports her last paracentesis of fluid was sent off to be tested per her liver specialist request. REVIEW OF SYSTEMS: As noted in the history of present illness. MEDICATIONS: Please see the home medication reconciliation list which I have reviewed. ALLERGIES: BEE HONEY. ADHESIVE TAPE. PAST MEDICAL HISTORY: Cirrhosis of the liver of unclear etiology. Asthma. Chronic obstructive pulmonary disease. Depression. Diabetes mellitus type 2. Hypertension. Iron deficiency anemia. PAST SURGICAL HISTORY: Amputation of the left leg. section x3. Cholecystectomy. Hysterectomy. Laparoscopy. Tonsillectomy. Upper endoscopy July 2019 with small esophageal varices, no gastric varices. Left foot surgery. SOCIAL HISTORY: She lives alone in an apartment [facility]. She reports smoking two cigarettes a day. No alcohol use. FAMILY HISTORY: Noncontributory. PHYSICAL EXAMINATION: VITAL SIGNS: Temperature current 98F, temperature max 98.1F, heart rate 74, respiratory rate 18, blood pressure 132/62. Oxygen saturation 100% on 2 liters. GENERAL: The patient is lying in bed a pleasant, talkative lady in no acute distress. She is on oxygen by nasal cannula. CVS: She has a regular rate and rhythm. No murmurs, gallops or rubs. CHEST: Clear to auscultation bilaterally. ABDOMEN: Distended with hypoactive bowel sounds. EXTREMITIES: Right lower leg no clubbing, cyanosis or edema. SKIN: Warm, dry and intact. LABORATORY DATA AND TESTS: Hemoglobin 10. Sodium 134, creatinine 1.2, glucose 137. Serial troponins were negative. AST 22, ALT 8, alkaline phosphatase 158. UA with 11 to 15 white blood cells, no bacteria. Rapid COVID test was negative. She had a chest x-ray that was read as interstitial alveolar opacities and right base infiltrate/atelectasis. She had a CT of her abdomen and pelvis that was read as stable cirrhotic liver with significant ascites, splenomegaly, and splenorenal varices. Please see the radiologist dictation for the full report. ASSESSMENT AND PLAN: 1) PNEUMONIA: I started her on ceftriaxone. She has ceftriaxone and azithromycin in the emergency department. Continue with oxygen as needed. 2) CIRRHOSIS WITH ASCITES: She gets regular paracentesis with the last one about ten days ago, will see if she can have an ultrasound guided paracentesis while she is here as this may help with her feeling of nausea and vomiting. 3) NAUSEA AND VOMITING: Maybe related to underlying liver disease. Again, will have the paracentesis done as soon as possible. 4) DIABETES MELLITUS TYPE 2: I slightly decreased her insulin as she does not have good oral intake at this time. 5) HYPERTENSION: Will continue her home medication.
[2020-02-05] MEDS: MORPHINE SULFATE 2 MG INJ IV PRN (10:59)
--- NOTE | 2020-02-05 14:14 | XRAY ---
Indication: Ascites. Informed consent obtained. Patient placed supine. Initial 4 quadrant abdominal ultrasound performed for localization. Largest pocket in the right mid abdomen. The abdominal wall was prepped and draped in sterile fashion. 1% lidocaine plain was used for local anesthesia. Tiny skin incision made. 5 [place] [employer] paracentesis needle/catheter was then percutaneously inserted. Once fluid was aspirating, the outer catheter was then advanced with the inner needle removed. Catheter was connected to a Vacutainer. Approximately 5.3 L of clear tea colored transudative fluid aspirated and disposed of properly. Repeat sonogram demonstrates marked improvement with small residual. Catheter removed. Band-Aid applied over the puncture site. Patient was discharged in good condition. Impression: Technically successful ultrasound-guided abdominal paracentesis for therapeutic purpose. No immediate complications or blood loss.
[2020-02-05] MEDS ORDERED: GABAPENTIN 600 MG PO SCH (15:00)
[2020-02-05] MEDS: HUMALOG SQ PRN ×3 (17:34→23:55)
[2020-02-05] MEDS ORDERED: PHARMACY DOSING REQUIRED: VANCOMYCIN IV ONE (17:54)
[2020-02-05] MEDS ORDERED: VANCOCIN 1 GM VIAL*** 1 GM in Sodium Chloride 0.9% 250 ML 250 ML IV SCH (18:30)
[2020-02-05] MEDS ORDERED: Vancomycin 1GM/ Ns 250ML*** 250 ML IV ONE (18:31)
[2020-02-05] MEDS: Cymbalta 30 MG Capsule PO SCH (21:27)
[2020-02-05] MEDS: Zocor 10MG PO SCH (21:27)
[2020-02-05] MEDS: ROCEPHIN 1 Gm-D5w 50 ml Bag** 1 G/50 ML IVPB IV SCH (21:29)
[2020-02-05] MEDS: Lantus Insulin SQ SCH (21:29)
[2020-02-05] MEDS ORDERED: NON-FORMULARY ITEM (Hydroxyzine Hcl [Hydroxyzine Hcl] 10 MG) PO SCH (22:00)
[2020-02-05] MEDS ORDERED: NON-FORMULARY ITEM (Pravastatin Sodium [Pravachol] 10 MG) PO SCH (22:00)
[2020-02-06] MEDS: Spiriva 18 Mcg/Cap Inhaler IH SCH (06:59)
[2020-02-06] MEDS: Zestril 5 MG PO SCH (08:40)
[2020-02-06] MEDS: Lasix 40 MG PO SCH ×2 (08:40→15:21)
[2020-02-06] MEDS: Lopressor 25MG Tab PO SCH ×2 (08:40→21:37)
[2020-02-06] MEDS: ATARAX 25 MG PO SCH ×2 (08:42→21:37)
[2020-02-06] MEDS: LACTULOSE 20 GM/30ML UD CUP PO SCH ×3 (08:42→21:37)
[2020-02-06] MEDS: NEURONTIN 300 MG PO SCH ×3 (08:43→21:37)
[2020-02-06] MEDS: FEOSOL 325 MG PO SCH ×2 (08:43→21:38)
[2020-02-06] MEDS: PROTONIX 40 MG IV IV SCH (08:43)
[2020-02-06] MEDS: HUMALOG SQ PRN ×3 (08:45→21:00)
[2020-02-06] MEDS: SYNTHROID 25 MCG PO SCH (08:48)
[2020-02-06] MEDS ORDERED: TIOTROPIUM BROMIDE IH SCH (10:00)
[2020-02-06] MEDS: VANCOMYCIN 1 GRAM/200 ML BAG 1 GM/200 ML PIGGYBACK IV SCH (10:47)
--- NOTE | 2020-02-06 15:59 | PCM.NOTE ---
Date and Time: 02/06/20 7085 Subjective Assessment: Patient reports some continued nausea but no vomiting and she has been able to eat. She states her abdomen feels better after her paracentesis where they removed >5 L of fluid. - Review of Systems Constitutional: Fatigue Respiratory: No Symptoms Abdominal/Gastrointestinal: Abdominal Pain, Nausea, No Vomiting Genitourinary Symptoms: No Symptoms Musculoskeletal: No Symptoms Objective Exam General Appearance: no apparent distress Neurologic Exam: alert, cooperative, normal mood/affect Skin Exam: normal color, warm, dry Respiratory Exam: normal breath sounds, lungs clear, No crackles/rales, No rhonchi, No wheezing Cardiovascular Exam: regular rate/rhythm, normal heart sounds, No murmur, No friction rub, No gallop Gastrointestinal/Abdomen Exam: soft, No tenderness, No distention, No mass OBJECTIVE DATA Vital Signs: Vital Signs - 24 hr Temp Pulse Resp BP Pulse Ox 02/06/20 11:59 98.5 F 76 16 95/59 90 L 02/06/20 08:00 97.7 F 69 16 109/55 95 02/06/20 07:01 65 16 96 02/06/20 04:15 97.9 F 59 L 17 87/51 97 02/06/20 00:12 97.5 F 62 16 95/49 97 02/05/20 20:14 67 18 97 02/05/20 20:02 97.8 F 65 18 107/50 100 Pain Assessment - Last Documented Pain Intensity 0 Pain Scale Used 0-10 Pain Scale Intake and Output: Intake & Output 02/04/20 02/05/20 02/06/20 02/07/20 06:59 06:59 06:59 06:59 Intake Total 480 1860 480 Balance 480 1860 480 Weight 73.936 kg 74.5 kg Lab Results: Accuchecks Date 02/06/20 Date 02/06/20 Date 02/06/20 Date 02/05/20 Date 02/05/20 Date 02/05/20 Time 11:30 Time 08:00 Time 04:00 Time 23:58 Time 20:00 Time 16:00 Accucheck Value: 216 Accucheck Value: 239 Accucheck Value: 163 Accucheck Value: 249 Accucheck Value: 274 Accucheck Value: 272 Lab Results-Last 24 Hours 02/06/20 Range/Units 08:00 Triglycerides 64 (30-150) mg/dL Cholesterol 81 (50-200) mg/dL LDL Cholesterol 33 (30-100) mg/dL HDL Cholesterol 41 (40-60) mg/dL Heart Disease Risk Ratio 2.0 Radiology Exams: Radiology Procedures Category Date Time Status ABDOMEN AND PELVIS W/0 CONTRAS [CT] Stat Exams 02/04/20 17:35 Completed ABDOMINAL PARACENTESIS [US] Routine Exams 02/05/20 13:54 Completed CHEST 1 VIEW (PORTABLE) Stat Exams 02/04/20 17:35 Completed Multi-Disciplinary Progress Notes: Multi-Disciplinary Progress Notes 02/06/20 11:52 Case Management Note by Makenzie Simpson NO CHANGE IN DC PLANS AT THIS TIME. PATIENT HAS HHC AND ELDERS JOURNEY WILL START ON MONDAY Initialized on 02/06/20 11:52 - END OF NOTE Assessment/Plan (1) Pneumonia Current Visit: Yes Status: Acute Qualifiers: Laterality: right Lung location: lower lobe of lung Assessment & Plan: Continue ceftriaxone. I also started Vancomycin yesterday when her blood culture prelim results came back. Code(s): J18.9 - PNEUMONIA, UNSPECIFIED ORGANISM (2) Cirrhosis of liver with ascites Current Visit: No Status: Acute Assessment & Plan: s/p paracentesis yesterday; she sees liver specialist in [facility]; currently stable. Code(s): K74.60 - UNSPECIFIED CIRRHOSIS OF LIVER; R18.8 - OTHER ASCITES (3) Diabetes type 2, controlled Current Visit: No Status: Acute Qualifiers: Diabetes mellitus assisted insulin use: with assisted use Diabetes mellitus complication status: with circulatory complication Diabetes mellitus complication detail: with other circulatory complications Qualified Code(s): E11.59 - Type 2 diabetes mellitus with other circulatory complications; Z79.4 - halfway (current) use of insulin Assessment & Plan: Currently controlled. Code(s): E11.9 - TYPE 2 DIABETES MELLITUS WITHOUT COMPLICATIONS (4) Bacteremia Current Visit: Yes Status: Acute Assessment & Plan: awaiting final culture report. Code(s): R78.81 - BACTEREMIA
[2020-02-06] MEDS: ROCEPHIN 1 Gm-D5w 50 ml Bag** 1 G/50 ML IVPB IV SCH (21:36)
[2020-02-06] MEDS: Zocor 10MG PO SCH (21:38)
[2020-02-06] MEDS: Cymbalta 30 MG Capsule PO SCH (21:38)
[2020-02-06] MEDS: Lantus Insulin SQ SCH (21:38)
[2020-02-07 06:02] LABS: Absolute Neutrophil Ct (ANC) 4.05 (1.4-6.9); BASOPHIL % 0.5 % (0.0-0.4); Basophil (Absolute #) 0.03 (0-0.4); Eosinophil % 5.1 % (0.00-5.0); Eosinophil (Absolute #) 0.34 (0-0.5); Hematocrit 30.4 % (35-47); Hemoglobin 9.9 gm/dl (12.0-16.0); Lymphocyte (Absolute #) 1.62 (1.0-4.6); Lymphocytes % 24.3 % (24.0-44.0); Mean Cell Volume 84.7 fl (78-100); Mean Corpuscular Hemoglobin 27.6 pg (26-32); Mean Corpuscular Hgb Concent. 32.6 g/dl (32-36); Mean Platelet Volume 10.3 fl (7.5-11.0); Monocyte (Absolute #) 0.62 (0.0-1.3); Monocytes % 9.3 % (0.0-12.0); Neutrophil % 60.8 % (36.0-66.0); Platelet Count 126 K/mm3 (150-450); Red Blood Count 3.59 M/mm3 (4.1-5.4); Red Cell Distribution Width 15.2 % (11.5-14.0); White Blood Count 6.7 K/mm3 (4.0-10.5)
[2020-02-07 06:22] LABS: ANION GAP 11.7 MEQ/L (5-15); Calcium 7.8 mg/dL (8.4-10.2); Creatinine 1 1.68 mg/dL (0.52-1.04)
[2020-02-07] MEDS: SYNTHROID 25 MCG PO SCH (06:59)
[2020-02-07] MEDS: MORPHINE SULFATE 2 MG INJ IV PRN (07:14)
[2020-02-07] MEDS: Spiriva 18 Mcg/Cap Inhaler IH SCH (07:56)
[2020-02-07 08:39] VITALS: O2SAT 96
[2020-02-07] MEDS: VANCOMYCIN 1 GRAM/200 ML BAG 1 GM/200 ML PIGGYBACK IV SCH (08:43)
[2020-02-07] MEDS: PROTONIX 40 MG IV IV SCH (08:45)
[2020-02-07] MEDS: NEURONTIN 300 MG PO SCH (08:49)
[2020-02-07] MEDS: LACTULOSE 20 GM/30ML UD CUP PO SCH ×2 (08:50→08:53)
[2020-02-07] MEDS: Lasix 40 MG PO SCH (08:50)
[2020-02-07] MEDS: ATARAX 25 MG PO SCH (08:50)
[2020-02-07] MEDS: FEOSOL 325 MG PO SCH (08:50)
[2020-02-07] MEDS: Zestril 5 MG PO SCH (08:51)
[2020-02-07] MEDS: Lopressor 25MG Tab PO SCH (08:51)
--- NOTE | 2020-02-07 10:31 | PCM.NOTE ---
Date and Time: 02/07/20 1026 Subjective Assessment: Patient reports she continues to feel better. No vomiting and not as much nausea. She reports a little bit of epigastric pain. - Review of Systems Constitutional: No Symptoms Respiratory: No Symptoms Cardiac: No Symptoms Abdominal/Gastrointestinal: Abdominal Pain, Nausea, No Vomiting, No Diarrhea Genitourinary Symptoms: No Symptoms Musculoskeletal: No Symptoms Objective Exam General Appearance: no apparent distress, alert Neurologic Exam: alert, cooperative Skin Exam: normal color, warm Respiratory Exam: normal breath sounds, other (scattered crackles throughout ( patient's baseline)) Cardiovascular Exam: regular rate/rhythm, normal heart sounds, No murmur, No friction rub, No gallop Gastrointestinal/Abdomen Exam: soft, normal bowel sounds, other (mild epigastric tenderness), No distention, No mass, No guarding Extremity Exam: other (no c/c/e) OBJECTIVE DATA Vital Signs: Vital Signs - 24 hr Temp Pulse Resp BP Pulse Ox 02/07/20 08:00 97.7 F 54 L 13 111/71 96 02/07/20 07:56 68 16 97 02/07/20 04:00 97.9 F 50 L 17 109/53 98 02/07/20 00:00 97.8 F 59 L 16 106/53 96 02/06/20 20:53 67 18 97 02/06/20 20:00 97.6 F 66 16 104/48 97 02/06/20 16:00 97.5 F 66 18 91/53 96 02/06/20 11:59 98.5 F 76 16 95/59 90 L Oxygen-Last 24 hours Oxygen Flowrate (L/min)-RT 2 Pain Assessment - Last Documented Pain Intensity 8 Pain Scale Used 0-10 Pain Scale Intake and Output: Intake & Output 02/05/20 02/06/20 02/07/20 02/08/20 06:59 06:59 06:59 06:59 Intake Total 480 1860 1420 Output Total 850 Balance 480 1860 570 Weight 73.936 kg 74.5 kg 76.6 kg Lab Results: Accuchecks Date 02/06/20 Date 02/07/20 Date 02/06/20 Date 02/06/20 Time 21:00 Time 00:00 Time 16:00 Time 11:30 Accucheck Value: 137 Accucheck Value: 253 Accucheck Value: 153 Accucheck Value: 155 Accucheck Value: 216 Lab Results-Last 24 Hours 02/07/20 02/07/20 Range/Units 05:25 05:25 WBC 6.7 (4.0-10.5) K/mm3 RBC 3.59 L (4.1-5.4) M/mm3 Hgb 9.9 L (12.0-16.0) gm/dl Hct 30.4 L (35-47) % MCV 84.7 (78-100) fl MCH 27.6 (26-32) pg MCHC 32.6 (32-36) g/dl RDW 15.2 H (11.5-14.0) % Plt Count 126 L (150-450) K/mm3 MPV 10.3 (7.5-11.0) fl Gran % 60.8 (36.0-66.0) % Eos # (Auto) 0.34 (0-0.5) Absolute Lymphs (auto) 1.62 (1.0-4.6) Absolute Monos (auto) 0.62 (0.0-1.3) Lymphocytes % 24.3 (24.0-44.0) % Monocytes % 9.3 (0.0-12.0) % Eosinophils % 5.1 H (0.00-5.0) % Basophils % 0.5 (0.0-0.4) % Absolute Granulocytes 4.05 (1.4-6.9) Basophils # 0.03 (0-0.4) Sodium 129 L (137-145) mmol/L Potassium 5.0 (3.5-5.1) mmol/L Chloride 99 (98-107) mmol/L Carbon Dioxide 23 (22-30) mmol/L Anion Gap 11.7 (5-15) MEQ/L BUN 26 H (7-17) mg/dL Creatinine 1.68 H (0.52-1.04) mg/dL Estimated GFR 34.0 ML/MIN Glucose 142 H (74-106) mg/dL Calcium 7.8 L (8.4-10.2) mg/dL Radiology Exams: Radiology Procedures Category Date Time Status ABDOMINAL PARACENTESIS [US] Routine Exams 02/05/20 13:54 Completed Multi-Disciplinary Progress Notes: Multi-Disciplinary Progress Notes 02/06/20 11:52 Case Management Note by Makenzie Simpson NO CHANGE IN DC PLANS AT THIS TIME. PATIENT HAS HHC AND ELDERS JOURNEY WILL START ON MONDAY Initialized on 02/06/20 11:52 - END OF NOTE Assessment/Plan (1) Pneumonia Current Visit: Yes Status: Acute Qualifiers: Laterality: right Lung location: lower lobe of lung Code(s): J18.9 - PNEUMONIA, UNSPECIFIED ORGANISM (2) Cirrhosis of liver with ascites Current Visit: No Status: Acute Assessment & Plan: Covid was neg; will finishe 5 more days of cefdinir. 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
--- NOTE | 2020-02-07 11:30 | PCM.DCORD ---
- Discharge Discharge Date: 02/07/20 Disposition: Home, Self-Care Condition: Fair Prescriptions: New Cefdinir [Omnicef] 300 mg PO BID #10 capsule Continue Duloxetine HCl 30 mg [Cymbalta 30 MG Capsule] 60 mg PO HS Omeprazole 20 MG [Prilosec 20 mg] 20 mg PO DAILY Albuterol Sulfate [Proair Hfa] 2 puff IH Q4HPRN PRN PRN Reason: RESP Pravastatin Sodium [Pravachol] 10 mg PO HS Gabapentin [Gralise] 600 mg PO TID Docusate Sodium 100 mg [Colace 100 MG] 100 mg PO HSPRN PRN PRN Reason: Constipation Ergocalciferol (Vitamin D2) [Vitamin D] 50,000 units PO UD Hydroxyzine HCl 10 mg PO BID Ferrous Sulfate 325 mg PO BID Levothyroxine Sodium 25 Mcg [Synthroid 25 Mcg] 25 mcg PO DAILY Lisinopril 5 mg [Zestril 5 MG] 5 mg PO DAILY #90 tablet Ondansetron ODT 4 MG [Zofran Odt 4 mg] 4 mg PO Q6H PRN PRN #10 tab.rapdis PRN Reason: Vomiting Insulin Lispro [Humalog Kwikpen U-100] 8 unit SQ TIDWMEALS #3 insuln.pen Metoprolol Tartrate 25 mg [Lopressor 25MG Tab] 1 tab PO BID Insulin Glargine [Lantus Insulin] 30 units SQ HS Tiotropium [place] [Spiriva Respimat] 1 puff IH DAILY Lactulose [Lactulose 20 gm/30Ml Ud Cup] 20 gm PO TID Furosemide 40 mg [Lasix 40 MG] 40 mg PO BID Additional Instructions: Return to ER or go to clinic if fever >100.4, abdominal pain or any other concerns. Follow up with: TERRY TRONCOSO [Primary Care Provider] - 1 Week
[2020-02-07] MEDS: HUMALOG SQ PRN (12:43)
[2020-02-07 15:29] VITALS: BP 113/53; PULSE 59
[2020-02-08] MEDS ORDERED: TROUGH DRUG LEVELS IJ ONE (09:00)
== END 2020-02-07 14:25 | disposition home or self-care (01) | DRG 194 ==
LOC: ED 17:04 → MED SURG 23:07 → OBSVTOIN 02-05 09:49
PROVIDERS: ADMIT Internal Medicine; ATTEND Internal Medicine
DX: J18.9 Pneumonia, unspecified organism (principal); R18.8 Other ascites; R78.81 Bacteremia; K74.60 Unspecified cirrhosis of liver; R11.2 Nausea with vomiting, unspecified; R10.11 Right upper quadrant pain; E11.9 Type 2 diabetes mellitus without complications; I10 Essential (primary) hypertension; J44.9 Chronic obstructive pulmonary disease, unspecified; Z86.19 Personal history of other infectious and parasitic diseases; Z79.899 Other long term (current) drug therapy
CPT/HCPCS: 36000; 36415; 49083; 71045; 74176; 80048; 80053; 80061; 81001; 82962; 83036; 83690; 83721; 84484; 85025; 87040; 87086; 93005; 94640; 94762; 96365; 96367; 96374; 99285; U0003; 93268; J0456; J0696; J1817; J2270; J2405; J3370; A9270-GY; G0378

== ENCOUNTER 2020-03-27 10:41 | Inpatient (IN) | payer MEDICARE ==
[2020-03-27] MEDS ORDERED: Zofran 4 MG/2 ML VIAL IV ONE (11:23)
[2020-03-27] MEDS ORDERED: MORPHINE SULFATE 4 MG INJ IV ONE (11:23)
[2020-03-27] MEDS ORDERED: PROTONIX 40 MG IV IV ONE ×2 (11:23→11:31)
[2020-03-27] MEDS ORDERED: Sodium Chloride 0.9% 1000 ML 1,000 ML IV STA (11:23)
[2020-03-27] MEDS ORDERED: MORPHINE SULFATE 4 MG INJ ONE (11:31)
[2020-03-27] MEDS ORDERED: Zofran 4 MG/2 ML VIAL ONE (11:31)
[2020-03-27] MEDS ORDERED: Sodium Chloride 0.9% 1000 ML 1,000 ML ONE (11:31)
[2020-03-27 11:47] LABS: Absolute Neutrophil Ct (ANC) 14.91 (1.4-6.9); BASOPHIL % 0.2 % (0.0-0.4); Basophil (Absolute #) 0.03 (0-0.4); Eosinophil % 0.2 % (0.00-5.0); Eosinophil (Absolute #) 0.03 (0-0.5); Hematocrit 32.1 % (35-47); Hemoglobin 10.3 gm/dl (12.0-16.0); Lymphocyte (Absolute #) 0.84 (1.0-4.6); Mean Cell Volume 83.6 fl (78-100); Mean Corpuscular Hemoglobin 26.8 pg (26-32); Mean Corpuscular Hgb Concent. 32.1 g/dl (32-36); Mean Platelet Volume 9.3 fl (7.5-11.0); Monocyte (Absolute #) 0.98 (0.0-1.3); Monocytes % 5.8 % (0.0-12.0); Neutrophil % 88.8 % (36.0-66.0); Platelet Count 213 K/mm3 (150-450); Red Blood Count 3.84 M/mm3 (4.1-5.4); White Blood Count 16.8 K/mm3 (4.0-10.5)
[2020-03-27 11:47] LABS: Appearance CLEAR (CLEAR); Bilirubin NEGATIVE (NEGATIVE); Blood NEGATIVE Ery/ul (0-5); Glucose 50 mg/dL (NEGATIVE); Ketones NEGATIVE (NEGATIVE); Leukocyte Esterase NEGATIVE (NEGATIVE); Mucus SLIGHT /HPF (NEGATIVE); Nitrite NEGATIVE (NEGATIVE); Protein,Urine Dip 100 (Negative); Specific Gravity 1.012 (1.005-1.025); Urobilinogen 4 mg/dL (0-1)
[2020-03-27 11:49] LABS: Bacteria NONE SEEN /HPF (NEGATIVE)
[2020-03-27 11:56] LABS: ALBUMIN 3.2 g/dL (3.5-5.0); ANION GAP 14.4 MEQ/L (5-15); BILIRUBIN,TOTAL 1.1 mg/dL (0.2-1.3); Calcium 8.4 mg/dL (8.4-10.2); Creatinine 1 1.28 mg/dL (0.52-1.04); Potassium 5.4 mmol/L (3.5-5.1); Total Protein 7.4 g/dL (6.3-8.2)
--- NOTE | 2020-03-27 12:06 | ERPHSYRPT ---
- History of Present Illness Time Seen by Provider: 03/27/20 11:03 Historian: patient Exam Limitations: no limitations Patient Subjective Stated Complaint: Pt c/o of vomiting for the past 3 days Triage Nursing Assessment: Pt presents to the ER with abdominal pain that is in all quadrants, pt does have her abdomen drained, abdomen is distended and hard, bowel sounds hypoactive, tachycardic, hypertensive, denies difficulty breathing, rates abdominal pain as 8/10 Physician History: 54 years old female with history of cirrhosis with ascites needing paracentesis on a regular basis, COPD, tobacco abuse presented in the ER with chief complaint of generalized abdominal pain with nausea and vomiting for the last 2 days. Patient described this as a sharp pain 8/10 intensity, without any significant aggravating or relieving factors, associated with multiple episodes of nonprojectile, nonbilious vomiting with no hematemesis. Reports being unable to hold much down. Denies any fever or chills but has mild productive cough for the last couple of weeks without any shortness of breath. Patient is scheduled to have paracentesis done in 5 days. Timing/Duration: day(s) (2), intermittent, gradual onset, worse Activities at Onset: rest Quality: sharpness Abdominal Pain Onset Location: generalized abdomen Pain Radiation: no radiation Modifying Factors: Improves With: nothing Associated Symptoms: nausea, vomiting, No diarrhea, No fever/chills, No shortness of breath Allergies/Adverse Reactions: adhesive tape Allergy (Mild, Verified 03/27/20 11:19) redness bee stings Allergy (Mild, Uncoded 02/04/20 17:21) Anaphylactic Reaction trouble breathing and swelling. Home Medications: Duloxetine HCl 30 mg [Cymbalta 30 MG Capsule] 60 mg PO BID 11/17/12 [History] Albuterol Sulfate [Proair Hfa] 2 puff IH Q4HPRN PRN 04/21/15 [History] Omeprazole 20 MG [Prilosec 20 mg] 20 mg PO DAILY 04/21/15 [History] Pravastatin Sodium [Pravachol] 10 mg PO HS 02/07/16 [History] Gabapentin [Gralise] 600 mg PO TID 11/11/16 [History] Docusate Sodium 100 mg [Colace 100 MG] 100 mg PO HSPRN PRN 01/18/19 [History] Ergocalciferol (Vitamin D2) [Vitamin D] 50,000 units PO UD 01/18/19 [History] Ferrous Sulfate 325 mg PO BID 01/18/19 [History] Hydroxyzine HCl 10 mg PO BID 01/18/19 [History] Levothyroxine Sodium 25 Mcg [Synthroid 25 Mcg] 25 mcg PO DAILY 01/18/19 [History] Insulin Glargine [Lantus Insulin] 30 units SQ HS 09/27/19 [History] Metoprolol Tartrate 25 mg [Lopressor 25MG Tab] 1 tab PO BID 09/27/19 [History] Tiotropium [place] [Spiriva Respimat] 1 puff IH DAILY 10/14/19 [History] Furosemide 40 mg [Lasix 40 MG] 40 mg PO BID 10/29/19 [History] Lactulose [Lactulose 20 gm/30Ml Ud Cup] 20 gm PO TID 10/29/19 [History] Hydrocodone/Acetaminophen [Hydrocodone-Acetamin 7.5-325] 1 tab PO BID 03/27/20 [History] Insulin Lispro [Humalog Kwikpen U-100] 10 unit SQ TIDWMEALS 03/27/20 [History] Hx Tetanus, Diphtheria Vaccination/Date Given: Yes Hx Influenza Vaccination/Date Given: Yes Hx Pneumococcal Vaccination/Date Given: Yes Travel Risk - International Travel Have you traveled outside of the country in past 3 weeks: No - Coronavirus Screening Are you exhibiting any of the following symptoms?: No Close contact with a COVID-19 positive Pt in past 14-21 Days: No - Review of Systems Constitutional: Weakness Eyes: No Symptoms Ears, Nose, & Throat: No Symptoms Respiratory: Cough Cardiac: No Symptoms Abdominal/Gastrointestinal: Abdominal Pain, Nausea, Vomiting Genitourinary Symptoms: No Symptoms Musculoskeletal: No Symptoms Skin: No Symptoms Neurological: No Symptoms Psychological: No Symptoms Endocrine: No Symptoms Hematologic/Lymphatic: No Symptoms Immunological/Allergic: No Symptoms - Past Medical History Pertinent Past Medical History: Yes Neurological History: No Pertinent History ENT History: No Pertinent History Cardiac History: Hypertension Respiratory History: Asthma, COPD, Pneumonia Endocrine Medical History: Diabetes Type II, Hyperthyroidism Musculoskeletal History: Fractures GI Medical History: GERD, Other History: No Pertinent History Psycho-Social History: Anxiety, Depression Female Reproductive Disorders: No Pertinent History Other Medical History: left ankle fx with mult surgeries, in February 2019 bka,. ascites. fatty liver - Past Surgical History Past Surgical History: Yes Neuro Surgical History: No Pertinent History Cardiac: No Pertinent History Respiratory: No Pertinent History Gastrointestinal: Cholecystectomy, Exploratory Laparoscopy Genitourinary: No Pertinent History Musculoskeletal: Amputation Female Surgical History: Section, Hysterectomy Other Surgical History: foot surgery, screw placed in left big toe, removal, and antibiotic bead placement. mult lt foot surgeries. LT BKA February 2019 - Social History Smoking Status: Current every day smoker How long have you smoked: 35 years Exposure to second hand smoke: Yes Drug Use: none Patient Lives Alone: No - Female History Hx Now: No (hysterectomy) - Nursing Vital Signs Nursing Vital Signs: Initial Vital Signs Temperature 98.7 F 03/27/20 10:58 Pulse Rate 116 H 03/27/20 10:58 Blood Pressure 168/84 03/27/20 10:58 O2 Sat by Pulse Oximetry 97 03/27/20 10:58 Pain Scale Pain Intensity 4 - Physical Exam General Appearance: no apparent distress, alert Eye Exam: PERRL/EOMI, eyes nml inspection Ears, Nose, Throat Exam: normal ENT inspection, pharynx normal Neck Exam: normal inspection, supple, full range of motion Respiratory Exam: normal breath sounds, lungs clear Cardiovascular Exam: regular rate/rhythm, normal heart sounds Gastrointestinal/Abdomen Exam: soft, normal bowel sounds, tenderness (Generalized), distention, No guarding Back Exam: normal inspection Extremity Exam: normal inspection Neurologic Exam: alert, 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, cooperative, normal mood/affect Skin Exam: normal color SpO2 Interpretation: normal SpO2: 98 O2 Delivery: Room Air Ordered Tests: Active Orders 24 hr Category Date Time Status EKG-ER Only STAT Care 03/27/20 13:34 Active IV Insertion STAT Care 03/27/20 11:23 Active ABDOMEN AND PELVIS W/0 CONTRAS [CT] Stat Exams 03/27/20 12:20 Completed CHEST 1 VIEW (PORTABLE) Stat Exams 03/27/20 11:24 Completed AMYLASE Stat Lab 03/27/20 11:25 Completed CBC W DIFF Stat Lab 03/27/20 11:25 Completed CMP Stat Lab 03/27/20 11:25 Completed LIPASE Stat Lab 03/27/20 11:25 Completed TROPONIN Q3H Lab 03/27/20 13:09 Received TROPONIN Q3H Lab 03/27/20 16:45 Ordered TROPONIN Q3H Lab 03/27/20 19:45 Ordered TROPONIN Q3H Lab 03/27/20 22:45 Ordered UA W/RFX UR CULTURE Stat Lab 03/27/20 11:28 Completed Respiratory Therapy Assessment DAILY RT 03/27/20 13:58 Active Transfer Order Routine Transfer 03/27/20 Ordered Medication Summary Generic Name Dose Route Start Last Admin Trade Name Freq PRN Reason Stop Dose Admin Azithromycin 500 mg in 250 mls @ 250 mls/hr 03/27/20 13:34 03/27/20 13:51 Zithromax 500 Mg/ 250 Ml Nacl Premix IV 03/27/20 14:33 250 mls/hr STAT STA 250 mls/hr Administration Discontinued Medications Generic Name Dose Route Start Last Admin Trade Name Freq PRN Reason Stop Dose Admin Albuterol/Ipratropium 3 ml 03/27/20 13:58 Duoneb 0.5-3 Mg/3 Ml Neb IH 03/27/20 13:59 STAT ONE Sodium Chloride 1,000 mls @ 499 mls/hr 03/27/20 11:23 03/27/20 13:41 Sodium Chloride 0.9% 1000 Ml IV 03/27/20 13:23 Infused .Q2H1M STA Infusion Sodium Chloride Confirm 03/27/20 11:31 Sodium Chloride 0.9% 1000 Ml Administered 03/27/20 11:32 Dose 1,000 mls @ ud .ROUTE .STK-MED ONE Ceftriaxone Sodium/Dextrose 1 g in 50 mls @ 100 mls/hr 03/27/20 13:34 03/27/20 13:48 Rocephin 1 Gm-D5w 50 Ml Bag IV 03/27/20 14:03 100 mls/hr STAT STA 100 mls/hr Administration Azithromycin Confirm 03/27/20 13:45 Zithromax 500 Mg/ 250 Ml Nacl Premix Administered 03/27/20 13:46 Dose 500 mg in 250 mls @ ud IV .STK-MED ONE Ceftriaxone Sodium/Dextrose Confirm 03/27/20 13:45 Rocephin 1 Gm-D5w 50 Ml Bag Administered 03/27/20 13:46 Dose 1 g in 50 mls @ ud IV .STK-MED ONE Morphine Sulfate 4 mg 03/27/20 11:23 03/27/20 11:38 Morphine Sulfate 4 Mg Inj IV 03/27/20 11:24 4 mg STAT ONE Administration Morphine Sulfate Confirm 03/27/20 11:31 Morphine Sulfate 4 Mg Inj Administered 03/27/20 11:32 Dose 4 mg .ROUTE .STK-MED ONE Ondansetron HCl 4 mg 03/27/20 11:23 03/27/20 11:37 Zofran 4 Mg/2 Ml Vial IV 03/27/20 11:24 4 mg STAT ONE Administration Ondansetron HCl Confirm 03/27/20 11:31 Zofran 4 Mg/2 Ml Vial Administered 03/27/20 11:32 Dose 4 mg .ROUTE .STK-MED ONE Pantoprazole Sodium 40 mg 03/27/20 11:23 03/27/20 11:37 Protonix 40 Mg Iv IV 03/27/20 11:24 40 mg STAT ONE Administration Pantoprazole Sodium Confirm 03/27/20 11:31 Protonix 40 Mg Iv Administered 03/27/20 11:32 Dose 40 mg IV .STK-MED ONE Sodium Polystyrene Sulfonate 60 g 03/27/20 13:35 03/27/20 13:52 Kayexylate 15 Gm/60 Ml PO 03/27/20 13:36 60 g STAT ONE Administration Sodium Polystyrene Sulfonate Confirm 03/27/20 13:51 Kayexylate 15 Gm/60 Ml Administered 03/27/20 13:52 Dose 60 g .ROUTE .STK-MED ONE Lab/Rad Data: Laboratory Result Diagrams 03/27/20 11:25 03/27/20 11:25 Laboratory Results 03/27/20 03/27/20 03/27/20 Range/Units 11:28 11:25 11:25 WBC 16.8 H (4.0-10.5) K/mm3 RBC 3.84 L (4.1-5.4) M/mm3 Hgb 10.3 L (12.0-16.0) gm/dl Hct 32.1 L (35-47) % MCV 83.6 (78-100) fl MCH 26.8 (26-32) pg MCHC 32.1 (32-36) g/dl RDW 15.0 H (11.5-14.0) % Plt Count 213 (150-450) K/mm3 MPV 9.3 (7.5-11.0) fl Gran % 88.8 H (36.0-66.0) % Eos # (Auto) 0.03 (0-0.5) Absolute Lymphs (auto) 0.84 L (1.0-4.6) Absolute Monos (auto) 0.98 (0.0-1.3) Lymphocytes % 5.0 L (24.0-44.0) % Monocytes % 5.8 (0.0-12.0) % Eosinophils % 0.2 (0.00-5.0) % Basophils % 0.2 (0.0-0.4) % Absolute Granulocytes 14.91 H (1.4-6.9) Basophils # 0.03 (0-0.4) Sodium 127 L (137-145) mmol/L Potassium 5.4 H (3.5-5.1) mmol/L Chloride 93 L (98-107) mmol/L Carbon Dioxide 24 (22-30) mmol/L Anion Gap 14.4 (5-15) MEQ/L BUN 17 (7-17) mg/dL Creatinine 1.28 H (0.52-1.04) mg/dL Estimated GFR 46.5 ML/MIN Glucose 317 H (74-106) mg/dL Calcium 8.4 (8.4-10.2) mg/dL Total Bilirubin 1.10 (0.2-1.3) mg/dL AST 18 (14-36) U/L ALT 10 (0-35) U/L Alkaline Phosphatase 224 H (38-126) U/L Serum Total Protein 7.4 (6.3-8.2) g/dL Albumin 3.2 L (3.5-5.0) g/dL Amylase 42 (30-110) U/L Lipase 32 (23-300) U/L Urine Color YELLOW (YELLOW) Urine Appearance CLEAR (CLEAR) Urine pH 6.0 (5-6) Ur Specific [place] 1.012 (1.005-1.025) Urine Protein 100 (Negative) Urine Ketones NEGATIVE (NEGATIVE) Urine Blood NEGATIVE (0-5) Ubaldo/ul Urine Nitrite NEGATIVE (NEGATIVE) Urine Bilirubin NEGATIVE (NEGATIVE) Urine Urobilinogen 4 (0-1) mg/dL Ur Leukocyte Esterase NEGATIVE (NEGATIVE) Urine WBC (Auto) 3-5 (0-5) /HPF Urine RBC (Auto) NONE (0-2) /HPF U Epithel Cells (Auto) NONE (FEW) /HPF Urine Bacteria (Auto) NONE SEEN (NEGATIVE) /HPF Urine Mucus (Auto) SLIGHT (NEGATIVE) /HPF Urine Culture Reflexed NO (NO) Urine Glucose 50 (NEGATIVE) mg/dL - Progress Progress: improved Progress Note: 03/27/20 14:12 54 years old is evaluated for abdominal pain with vomiting and shortness of breath. She is given a small bolus of fluid along with morphine and Zofran, on reevaluation feeling better. She is also given a breathing treatment. Work-up showed right-sided pneumonia with massive ascites but no other acute finding in the abdomen. She also has mildly elevated potassium and is given oral Ka yexalate. EKG did not show any acute T wave changes. Patient is started on Rocephin and Zithromax which will cover pneumonia and if there is any element of SBP. Discussed with Dr. Kiser and patient is being admitted. Will see patient in: hospital (observation) Counseled pt/family regarding: lab results, diagnosis, rad results - Departure Departure Disposition: Observation Clinical Impression: Hyperkalemia Pneumonia Qualifiers: Pneumonia type: due to unspecified organism Laterality: right Lung location: unspecified part of lung Qualified Code(s): J18.9 - Pneumonia, unspecified organism Cirrhosis of liver with ascites Qualifiers: Hepatic cirrhosis type: unspecified hepatic cirrhosis Qualified Code(s): K74.60 - Unspecified cirrhosis of liver; R18.8 - Other ascites COPD (chronic obstructive pulmonary disease) Qualifiers: COPD type: chronic bronchitis Chronic bronchitis type: mixed simple and mucopurulent Qualified Code(s): J41.8 - Mixed simple and mucopurulent chronic bronchitis Condition: Stable Critical Care Time: No Referrals: SARAH AMIN DO [Primary Care Provider] - Instructions: Chronic Obstructive Pulmonary Disease
--- NOTE | 2020-03-27 12:10 | XRAY ---
Exam: AP upright portable chest film from 03/27/2020. Comparison: AP portable chest film from 02/04/2020 and two-view chest film series from 10/30/2019. Indication: Rule out pneumonia. Findings: The heart size is normal. I again note mixed alveolar/interstitial infiltrates within the lower half of the left lung and at the right lung base. There appears to be slightly increased airspace opacity at the medial right lung base as compared to the last 2 chest films. I cannot exclude pneumonia superimposed on a chronic bilateral inflammatory and/or infectious process. The upper two thirds of the right lung and the upper half of the left lung remain clear. No pneumothorax or pleural effusion is seen. No acute osseous process is seen. Impression: 1. I again note mixed airspace/interstitial opacities throughout the lower half of the left lung and at the right lung base. However, I believe there is mildly increased airspace opacity at the medial right lung base on the current study as compared to the 2 previous exams. Consider an acute pneumonia superimposed upon chronic infiltrates.
--- NOTE | 2020-03-27 13:03 | XRAY ---
Exam: CT of the abdomen and pelvis without IV contrast from 03/27/2020. CTDI: 19.18 mGy Comparison: CT of the abdomen and pelvis without IV contrast from 02/04/2020. Indication: 54-year-old female with nausea and vomiting, history of cirrhosis and fatty liver, has had multiple paracentesis procedures in the past. She also has a history of prior cholecystectomy, hysterectomy, and 3 sections. Technique: Non-IV contrast axial images were obtained through the abdomen and pelvis. Reconstructed coronal and sagittal images were created and reviewed. Findings: The visualized lung bases again reveal scattered bilateral interstitial and alveolar opacities with extensive bronchiectasis. Apparently, these findings are chronic. There has been no significant interval change from 02/04/2020. No posterior pleural fluid is seen. The liver has a mildly irregular contour consistent with cirrhosis representing no change. Surgical clips consistent with prior cholecystectomy are again seen. There is a large amount of ascites throughout the abdomen and pelvis which I believe is slightly increased as compared to the prior CT from 02/04/2020. I see no free intraperitoneal air. The spleen again appears at least moderately enlarged measuring 17.3 cm in craniocaudal dimension on sagittal image #153. This is about the same as 02/04/2020. No focal splenic mass is seen. There appear to be some mild splenorenal varices seen within the left hemiabdomen representing no change. The pancreas and adrenal glands appear unremarkable. The right kidney appears slightly smaller than the left kidney. The right kidney measures about 9.0 cm in length and the left kidney measures about 10.8 cm in length. This is unchanged. No renal calculi or hydronephrosis is seen. No gross evidence of renal mass is seen. Mild atherosclerotic calcification is seen within the abdominal aorta and iliac arteries. No abdominal aortic aneurysm is seen. There is incidental note of a retro-aortic left renal vein on axial image #34. No abnormal retroperitoneal lymphadenopathy is seen. The bowel appears nonobstructed with some scattered stool throughout the colon. I again see a mild umbilical hernia containing fat and fluid representing no change. A smaller left periumbilical ventral hernia is also again seen. The uterus is surgically absent. The urinary bladder is mildly distended and reveals no bladder stone. The urinary bladder wall is again noted to be somewhat prominent measuring up to 5.5 mm in thickness. This could be due to bladder wall hypertrophy. Correlate clinically regarding cystitis. No enlarged pelvic lymph nodes are seen. The skeleton reveals no acute fracture or aggressive bone lesion. Mild degenerative changes are seen within the thoracolumbar spine. Impression: 1. I again see evidence of cirrhosis, splenomegaly, and splenorenal varices. In addition, there is a large amount of ascites within the abdomen and pelvis which may be slightly increased as compared to 02/04/2020. 2. I again note significant bibasilar interstitial and alveolar opacities with extensive bronchiectasis - chronic. 3. Stable small umbilical and left periumbilical ventral hernias are again seen. These contain fat as well as some ascitic fluid. 4. Colonic fecal stasis without obstruction. There is no free intraperitoneal air. 5. Mild urinary bladder wall thickening. See above. 5. The gallbladder and the uterus are surgically absent. No other acute process is seen within the abdomen or pelvis.
[2020-03-27] MEDS ORDERED: Zithromax 500 MG/ 250 ML NaCl Premix 500 MG/250 ML IVPB IV STA (13:34)
[2020-03-27] MEDS ORDERED: ROCEPHIN 1 Gm-D5w 50 ml Bag** 1 G/50 ML IVPB IV STA (13:34)
[2020-03-27] MEDS ORDERED: Kayexylate 15 GM/60 ML PO ONE (13:35)
[2020-03-27] MEDS ORDERED: Zithromax 500 MG/ 250 ML NaCl Premix 500 MG/250 ML IVPB IV ONE (13:45)
[2020-03-27] MEDS ORDERED: ROCEPHIN 1 Gm-D5w 50 ml Bag** 1 G/50 ML IVPB IV ONE (13:45)
[2020-03-27] MEDS ORDERED: Kayexylate 15 GM/60 ML ONE (13:51)
[2020-03-27] MEDS ORDERED: DUONEB 0.5-3 MG/3 ml Neb IH ONE ×2 (13:58→14:19)
[2020-03-27] MEDS ORDERED: Zofran 4 MG/2 ML VIAL IV PRN (14:41)
[2020-03-27] MEDS ORDERED: TYLENOL 325 MG PO PRN (14:41)
[2020-03-27] MEDS ORDERED: VENTOLIN COMMON CANISTER IH PRN (18:26)
[2020-03-27] MEDS: Sodium Chloride 0.9% 1000 ML 1,000 ML IV SCH (18:27)
[2020-03-27] MEDS ORDERED: ZOFRAN ODT 4 MG PO PRN (18:36)
[2020-03-27] MEDS ORDERED: PHENERGAN 25 MG PO PRN (18:38)
[2020-03-27] MEDS: DUONEB 0.5-3 MG/3 ml Neb IH SCH (18:41)
[2020-03-27] MEDS: Zocor 10MG PO SCH (21:36)
[2020-03-27] MEDS: FEOSOL 325 MG PO SCH (21:36)
[2020-03-27] MEDS: Cymbalta 30 MG Capsule PO SCH (21:36)
[2020-03-27] MEDS: Lantus Insulin SQ SCH (21:37)
[2020-03-27] MEDS: LACTULOSE 20 GM/30ML UD CUP PO SCH (21:37)
[2020-03-27] MEDS ORDERED: ATARAX 25 MG PO SCH (22:00)
[2020-03-27] MEDS ORDERED: NORCO 7.5/325 MG TAB PO SCH (22:00)
[2020-03-28] MEDS: DUONEB 0.5-3 MG/3 ml Neb IH SCH ×4 (00:29→19:22)
[2020-03-28] MEDS: HUMALOG SQ PRN ×3 (04:14→21:35)
[2020-03-28 05:05] LABS: Absolute Neutrophil Ct (ANC) 7.02 (1.4-6.9); BASOPHIL % 0.2 % (0.0-0.4); Basophil (Absolute #) 0.02 (0-0.4); Eosinophil % 1.8 % (0.00-5.0); Eosinophil (Absolute #) 0.18 (0-0.5); Hematocrit 29.3 % (35-47); Hemoglobin 9.1 gm/dl (12.0-16.0); Lymphocyte (Absolute #) 1.86 (1.0-4.6); Lymphocytes % 18.6 % (24.0-44.0); Mean Cell Volume 86.4 fl (78-100); Mean Corpuscular Hemoglobin 26.8 pg (26-32); Mean Corpuscular Hgb Concent. 31.1 g/dl (32-36); Mean Platelet Volume 8.9 fl (7.5-11.0); Monocyte (Absolute #) 0.93 (0.0-1.3); Monocytes % 9.3 % (0.0-12.0); Neutrophil % 70.1 % (36.0-66.0); Platelet Count 186 K/mm3 (150-450); Red Blood Count 3.39 M/mm3 (4.1-5.4); Red Cell Distribution Width 15.3 % (11.5-14.0)
[2020-03-28 05:18] LABS: ALBUMIN 2.7 g/dL (3.5-5.0); BILIRUBIN,TOTAL 0.5 mg/dL (0.2-1.3); Calcium 7.9 mg/dL (8.4-10.2); Creatinine 1 1.36 mg/dL (0.52-1.04); Potassium 4.6 mmol/L (3.5-5.1); Total Protein 6.5 g/dL (6.3-8.2)
[2020-03-28] MEDS ORDERED: Sodium Chloride 0.9% 1000 ML 1,000 ML ONE (06:04)
[2020-03-28] MEDS: Sodium Chloride 0.9% 1000 ML 1,000 ML IV SCH ×2 (06:05→18:46)
[2020-03-28] MEDS: HUMALOG SQ SCH ×3 (09:18→16:55)
--- NOTE | 2020-03-28 09:37 | PCM.HP ---
History of Present Illness - Chief Complaint Chief Complaint: pneumonia Date: 03/28/20 History of Present Illness: is a 54 year old female. Presented to ER yesterday afternoon with chief complaint of vomiting and generalized abdominal discomfort with shortness of breath. Pt. notes feeling better this am with decrease in sob and no further vomiting and only mild abdominal pain. - Review of Systems Constitutional: No Fever, No Chills Eyes: No Symptoms Ears, Nose, & Throat: No Symptoms Respiratory: Short Of Breath, No Cough Cardiac: No Chest Pain, No Edema, No Syncope Abdominal/Gastrointestinal: Abdominal Pain, Vomiting, No Nausea, No Diarrhea Genitourinary Symptoms: No Dysuria Musculoskeletal: No Back Pain, No Neck Pain Skin: No Rash Neurological: No Dizziness, No Focal Weakness, No Sensory Changes Psychological: No Symptoms Endocrine: No Symptoms Hematologic/Lymphatic: No Symptoms Immunological/Allergic: No Symptoms Medications & Allergies Home Medications: Home Medication List Duloxetine HCl 30 mg [Cymbalta 30 MG Capsule] 30 mg PO BID 11/17/12 [History Confirmed 03/27/20] Albuterol Sulfate [Proair Hfa] 2 puff IH Q4HPRN PRN 04/21/15 [History Confirmed 03/27/20] Omeprazole 20 MG [Prilosec 20 mg] 20 mg PO DAILY 04/21/15 [History Confirmed 03/27/20] Pravastatin Sodium [Pravachol] 10 mg PO HS 02/07/16 [History Confirmed 03/27/20] Gabapentin [Gralise] 600 mg PO TID 11/11/16 [History Confirmed 03/27/20] Docusate Sodium 100 mg [Colace 100 MG] 100 mg PO HSPRN PRN 01/18/19 [History Confirmed 03/27/20] Ergocalciferol (Vitamin D2) [Vitamin D] 50,000 units PO CHEW 01/18/19 [History Confirmed 03/27/20] Ferrous Sulfate 325 mg PO BID 01/18/19 [History Confirmed 03/27/20] Hydroxyzine HCl 10 mg PO BID 01/18/19 [History Confirmed 03/27/20] Levothyroxine Sodium 25 Mcg [Synthroid 25 Mcg] 25 mcg PO DAILY 01/18/19 [History Confirmed 03/27/20] Lisinopril 5 mg [Zestril 5 MG] 5 mg PO DAILY #90 tablet 01/21/19 [Rx Confirmed 03/27/20] Ondansetron ODT 4 MG [Zofran Odt 4 mg] 4 mg PO Q6H PRN PRN #10 tab.rapdis 07/11/19 [Rx Confirmed 03/27/20] Insulin Glargine [Lantus Insulin] 30 units SQ HS 09/27/19 [History Confirmed 03/27/20] Metoprolol Tartrate 25 mg [Lopressor 25MG Tab] 1 tab PO DAILY 09/27/19 [History Confirmed 03/27/20] Tiotropium [place] [Spiriva Respimat] 1 puff IH DAILY 10/14/19 [History Confirmed 03/27/20] Furosemide 40 mg [Lasix 40 MG] 40 mg PO BID 10/29/19 [History Confirmed 03/27/20] Lactulose [Lactulose 20 gm/30Ml Ud Cup] 20 gm PO TID 10/29/19 [History Confirmed 03/27/20] Hydrocodone/Acetaminophen [Hydrocodone-Acetamin 7.5-325] 1 tab PO BIDPRN PRN MDD \\ 03/27/20 [History Confirmed 03/27/20] Insulin Lispro [Humalog Kwikpen U-100] 10 unit SQ TIDWMEALS 03/27/20 [History Confirmed 03/27/20] Promethazine HCl 25 mg [Phenergan 25 mg] 25 mg PO Q6HPRN PRN 03/27/20 [History Confirmed 03/27/20] Allergies/Adverse Reactions: Allergies Allergy/AdvReac Type Severity Reaction Status Date / Time adhesive tape Allergy Mild Verified 03/27/20 11:19 bee stings Allergy Mild Anaphylactic Uncoded 02/04/20 17:21 Reaction - Past Medical History Past Medical History: Yes Neurological History: No Pertinent History ENT History: No Pertinent History Cardiac History: Hypertension Respiratory History: Asthma, COPD, Pneumonia Endocrine Medical History: Diabetes Type II, Hyperthyroidism Musculoskelatal History: Fractures GI Medical History: GERD, Other History: No Pertinent History Pyscho-Social History: Anxiety, Depression Reproductive Disorders: No Pertinent History Comment: left ankle fx with mult surgeries, in February 2019 bka,. ascites. fatty liver - Female History Are you now?: No (hysterectomy) - Past Surgical History Past Surgical History: Yes Neuro Surgical History: No Pertinent History Cardiac History: No Pertinent History Respiratory Surgery: No Pertinent History GI Surgical History: Cholecystectomy, Exploratory Laparoscopy Genitourinary Surgical Hx: No Pertinent History Musculskeletal Surgical Hx: Amputation Female Surgical History: Section, Hysterectomy Other Surgical History: foot surgery, screw placed in left big toe, removal, and antibiotic bead placement. mult lt foot surgeries. LT BKA February 2019 - Social History Smoking Status: Current every day smoker How long have you smoked: "35 years" Exposure to second hand smoke: Yes Alcohol: None Drug Use: none - Physical Exam Vital Signs: Vital Signs - 24 hr Temp Pulse Resp BP Pulse Ox 03/28/20 07:33 98.2 F 95 H 18 130/59 03/28/20 07:00 90 18 94 L 03/28/20 04:00 98.7 F 92 H 23 111/53 97 03/28/20 00:33 82 16 98 03/28/20 00:00 97.7 F 88 22 125/60 97 03/27/20 20:00 99.3 F 82 22 103/57 98 03/27/20 19:03 78 16 98 03/27/20 18:49 98 03/27/20 15:34 99.1 F 94 H 19 110/53 98 03/27/20 15:24 95 H 98 03/27/20 14:23 102 H 22 99 03/27/20 14:14 98 03/27/20 11:48 98.7 F 89 22 148/78 98 03/27/20 10:58 98.7 F 116 H 168/84 97 Oxygen-Last 24 hours Oxygen Flowrate (L/min)-RT 2 Oxygen Flowrate (L/min)-RT 2 Oxygen Flowrate (L/min)-RT 2 Oxygen Flowrate (L/min)-RT 2 General Appearance: no apparent distress Neurologic Exam: alert, cooperative Eye Exam: PERRL/EOMI, eyes nml inspection Ears, Nose, Throat Exam: normal ENT inspection, pharynx normal, moist mucous membranes Neck Exam: normal inspection, non-tender, supple, full range of motion, No meningismus Respiratory Exam: airway intact, crackles/rales, wheezing Cardiovascular Exam: regular rate/rhythm, normal heart sounds, normal peripheral pulses, No murmur Gastrointestinal/Abdomen Exam: soft, normal bowel sounds, distention, No tenderness, No mass, No guarding Pelvic Exam: not done Rectal Exam: deferred Back Exam: normal inspection Extremity Exam: normal inspection (left leg amputation noted) Skin Exam: normal color, warm, dry, No rash, No petechiae Results - Labs Lab/Micro Results: Accuchecks Date 03/28/20 Date 03/28/20 Date 03/28/20 Date 03/27/20 Time 07:00 Time 04:00 Time 00:11 Time 20:50 Accucheck Value: 154 Accucheck Value: 239 Accucheck Value: 192 Accucheck Value: 186 Lab Results-Last 24 Hours 03/27/20 03/27/20 03/27/20 Range/Units 11:25 11:25 11:28 WBC 16.8 H (4.0-10.5) K/mm3 RBC 3.84 L (4.1-5.4) M/mm3 Hgb 10.3 L (12.0-16.0) gm/dl Hct 32.1 L (35-47) % MCV 83.6 (78-100) fl MCH 26.8 (26-32) pg MCHC 32.1 (32-36) g/dl RDW 15.0 H (11.5-14.0) % Plt Count 213 (150-450) K/mm3 MPV 9.3 (7.5-11.0) fl Gran % 88.8 H (36.0-66.0) % Eos # (Auto) 0.03 (0-0.5) Absolute Lymphs (auto) 0.84 L (1.0-4.6) Absolute Monos (auto) 0.98 (0.0-1.3) Lymphocytes % 5.0 L (24.0-44.0) % Monocytes % 5.8 (0.0-12.0) % Eosinophils % 0.2 (0.00-5.0) % Basophils % 0.2 (0.0-0.4) % Absolute Granulocytes 14.91 H (1.4-6.9) Basophils # 0.03 (0-0.4) Sodium 127 L (137-145) mmol/L Potassium 5.4 H (3.5-5.1) mmol/L Chloride 93 L (98-107) mmol/L Carbon Dioxide 24 (22-30) mmol/L Anion Gap 14.4 (5-15) MEQ/L BUN 17 (7-17) mg/dL Creatinine 1.28 H (0.52-1.04) mg/dL Estimated GFR 46.5 ML/MIN Glucose 317 H (74-106) mg/dL Lactic Acid (0.4-2.0) Calcium 8.4 (8.4-10.2) mg/dL Total Bilirubin 1.10 (0.2-1.3) mg/dL AST 18 (14-36) U/L ALT 10 (0-35) U/L Alkaline Phosphatase 224 H (38-126) U/L Troponin I (0.000-0.034) ng/mL Serum Total Protein 7.4 (6.3-8.2) g/dL Albumin 3.2 L (3.5-5.0) g/dL Prealbumin (17.6-36.0) mg/dL Amylase 42 (30-110) U/L Lipase 32 (23-300) U/L Urine Color YELLOW (YELLOW) Urine Appearance CLEAR (CLEAR) Urine pH 6.0 (5-6) Ur Specific [place] 1.012 (1.005-1.025) Urine Protein 100 (Negative) Urine Ketones NEGATIVE (NEGATIVE) Urine Blood NEGATIVE (0-5) Ubaldo/ul Urine Nitrite NEGATIVE (NEGATIVE) Urine Bilirubin NEGATIVE (NEGATIVE) Urine Urobilinogen 4 (0-1) mg/dL Ur Leukocyte Esterase NEGATIVE (NEGATIVE) Urine WBC (Auto) 3-5 (0-5) /HPF Urine RBC (Auto) NONE (0-2) /HPF U Epithel Cells (Auto) NONE (FEW) /HPF Urine Bacteria (Auto) NONE SEEN (NEGATIVE) /HPF Urine Mucus (Auto) SLIGHT (NEGATIVE) /HPF Urine Culture Reflexed NO (NO) Urine Glucose 50 (NEGATIVE) mg/dL 03/27/20 03/27/20 03/27/20 Range/Units 13:09 17:20 17:59 WBC (4.0-10.5) K/mm3 RBC (4.1-5.4) M/mm3 Hgb (12.0-16.0) gm/dl Hct (35-47) % MCV (78-100) fl MCH (26-32) pg MCHC (32-36) g/dl RDW (11.5-14.0) % Plt Count (150-450) K/mm3 MPV (7.5-11.0) fl Gran % (36.0-66.0) % Eos # (Auto) (0-0.5) Absolute Lymphs (auto) (1.0-4.6) Absolute Monos (auto) (0.0-1.3) Lymphocytes % (24.0-44.0) % Monocytes % (0.0-12.0) % Eosinophils % (0.00-5.0) % Basophils % (0.0-0.4) % Absolute Granulocytes (1.4-6.9) Basophils # (0-0.4) Sodium (137-145) mmol/L Potassium (3.5-5.1) mmol/L Chloride (98-107) mmol/L Carbon Dioxide (22-30) mmol/L Anion Gap (5-15) MEQ/L BUN (7-17) mg/dL Creatinine (0.52-1.04) mg/dL Estimated GFR ML/MIN Glucose (74-106) mg/dL Lactic Acid 1.1 (0.4-2.0) Calcium (8.4-10.2) mg/dL Total Bilirubin (0.2-1.3) mg/dL AST (14-36) U/L ALT (0-35) U/L Alkaline Phosphatase (38-126) U/L Troponin I < 0.012 < 0.012 (0.000-0.034) ng/mL Serum Total Protein (6.3-8.2) g/dL Albumin (3.5-5.0) g/dL Prealbumin (17.6-36.0) mg/dL Amylase (30-110) U/L Lipase (23-300) U/L Urine Color (YELLOW) Urine Appearance (CLEAR) Urine pH (5-6) Ur Specific [place] (1.005-1.025) Urine Protein (Negative) Urine Ketones (NEGATIVE) Urine Blood (0-5) Ubaldo/ul Urine Nitrite (NEGATIVE) Urine Bilirubin (NEGATIVE) Urine Urobilinogen (0-1) mg/dL Ur Leukocyte Esterase (NEGATIVE) Urine WBC (Auto) (0-5) /HPF Urine RBC (Auto) (0-2) /HPF U Epithel Cells (Auto) (FEW) /HPF Urine Bacteria (Auto) (NEGATIVE) /HPF Urine Mucus (Auto) (NEGATIVE) /HPF Urine Culture Reflexed (NO) Urine Glucose (NEGATIVE) mg/dL 03/27/20 03/27/20 03/28/20 Range/Units 20:05 Unknown 04:26 WBC 10.0 (4.0-10.5) K/mm3 RBC 3.39 L (4.1-5.4) M/mm3 Hgb 9.1 L (12.0-16.0) gm/dl Hct 29.3 L (35-47) % MCV 86.4 (78-100) fl MCH 26.8 (26-32) pg MCHC 31.1 L (32-36) g/dl RDW 15.3 H (11.5-14.0) % Plt Count 186 (150-450) K/mm3 MPV 8.9 (7.5-11.0) fl Gran % 70.1 H (36.0-66.0) % Eos # (Auto) 0.18 (0-0.5) Absolute Lymphs (auto) 1.86 (1.0-4.6) Absolute Monos (auto) 0.93 (0.0-1.3) Lymphocytes % 18.6 L (24.0-44.0) % Monocytes % 9.3 (0.0-12.0) % Eosinophils % 1.8 (0.00-5.0) % Basophils % 0.2 (0.0-0.4) % Absolute Granulocytes 7.02 H (1.4-6.9) Basophils # 0.02 (0-0.4) Sodium (137-145) mmol/L Potassium (3.5-5.1) mmol/L Chloride (98-107) mmol/L Carbon Dioxide (22-30) mmol/L Anion Gap (5-15) MEQ/L BUN (7-17) mg/dL Creatinine (0.52-1.04) mg/dL Estimated GFR ML/MIN Glucose (74-106) mg/dL Lactic Acid (0.4-2.0) Calcium (8.4-10.2) mg/dL Total Bilirubin (0.2-1.3) mg/dL AST (14-36) U/L ALT (0-35) U/L Alkaline Phosphatase (38-126) U/L Troponin I < 0.012 (0.000-0.034) ng/mL Serum Total Protein (6.3-8.2) g/dL Albumin (3.5-5.0) g/dL Prealbumin 5.42 L (17.6-36.0) mg/dL Amylase (30-110) U/L Lipase (23-300) U/L Urine Color (YELLOW) Urine Appearance (CLEAR) Urine pH (5-6) Ur Specific [place] (1.005-1.025) Urine Protein (Negative) Urine Ketones (NEGATIVE) Urine Blood (0-5) Ubaldo/ul Urine Nitrite (NEGATIVE) Urine Bilirubin (NEGATIVE) Urine Urobilinogen (0-1) mg/dL Ur Leukocyte Esterase (NEGATIVE) Urine WBC (Auto) (0-5) /HPF Urine RBC (Auto) (0-2) /HPF U Epithel Cells (Auto) (FEW) /HPF Urine Bacteria (Auto) (NEGATIVE) /HPF Urine Mucus (Auto) (NEGATIVE) /HPF Urine Culture Reflexed (NO) Urine Glucose (NEGATIVE) mg/dL /25/20 Range/Units 04:26 WBC (4.0-10.5) K/mm3 RBC (4.1-5.4) M/mm3 Hgb (12.0-16.0) gm/dl Hct (35-47) % MCV (78-100) fl MCH (26-32) pg MCHC (32-36) g/dl RDW (11.5-14.0) % Plt Count (150-450) K/mm3 MPV (7.5-11.0) fl Gran % (36.0-66.0) % Eos # (Auto) (0-0.5) Absolute Lymphs (auto) (1.0-4.6) Absolute Monos (auto) (0.0-1.3) Lymphocytes % (24.0-44.0) % Monocytes % (0.0-12.0) % Eosinophils % (0.00-5.0) % Basophils % (0.0-0.4) % Absolute Granulocytes (1.4-6.9) Basophils # (0-0.4) Sodium 132 L (137-145) mmol/L Potassium 4.6 (3.5-5.1) mmol/L Chloride 100 (98-107) mmol/L Carbon Dioxide 25 (22-30) mmol/L Anion Gap 11.0 (5-15) MEQ/L BUN 17 (7-17) mg/dL Creatinine 1.36 H (0.52-1.04) mg/dL Estimated GFR 43.4 ML/MIN Glucose 234 H (74-106) mg/dL Lactic Acid (0.4-2.0) Calcium 7.9 L (8.4-10.2) mg/dL Total Bilirubin 0.50 (0.2-1.3) mg/dL AST 18 (14-36) U/L ALT 8 (0-35) U/L Alkaline Phosphatase 168 H (38-126) U/L Troponin I (0.000-0.034) ng/mL Serum Total Protein 6.5 (6.3-8.2) g/dL Albumin 2.7 L (3.5-5.0) g/dL Prealbumin (17.6-36.0) mg/dL Amylase (30-110) U/L Lipase (23-300) U/L Urine Color (YELLOW) Urine Appearance (CLEAR) Urine pH (5-6) Ur Specific [place] (1.005-1.025) Urine Protein (Negative) Urine Ketones (NEGATIVE) Urine Blood (0-5) Ubaldo/ul Urine Nitrite (NEGATIVE) Urine Bilirubin (NEGATIVE) Urine Urobilinogen (0-1) mg/dL Ur Leukocyte Esterase (NEGATIVE) Urine WBC (Auto) (0-5) /HPF Urine RBC (Auto) (0-2) /HPF U Epithel Cells (Auto) (FEW) /HPF Urine Bacteria (Auto) (NEGATIVE) /HPF Urine Mucus (Auto) (NEGATIVE) /HPF Urine Culture Reflexed (NO) Urine Glucose (NEGATIVE) mg/dL Accuchecks Date 03/28/20 Date 03/28/20 Date 03/28/20 Date 03/27/20 Time 07:00 Time 04:00 Time 00:11 Time 20:50 Accucheck Value: 154 Accucheck Value: 239 Accucheck Value: 192 Accucheck Value: 186 - Radiology Impressions Radiology Exams & Impressions: Radiology Procedures Category Date Time Status ABDOMEN AND PELVIS W/0 CONTRAS [CT] Stat Exams 03/27/20 12:20 Completed CHEST 1 VIEW (PORTABLE) Stat Exams 03/27/20 11:24 Completed - Other Procedures and Tests Respiratory Therapy 03/27/20 13:58 Respiratory Therapy Assessment DAILY 03/27/20 15:22 Oxygen NASAL CANNULA 2 lpm 03/27/20 19:09 Peak Expiratory Flow Rate ONCE Assessment/Plan (1) Pneumonia Current Visit: Yes Status: Acute Qualifiers: Pneumonia type: due to unspecified organism Laterality: right Lung location: unspecified part of lung Qualified Code(s): J18.9 - Pneumonia, unspecified organism Assessment & Plan: IV rocephin and azithromycin continue. Not requiring oxygen at this time, continue albuterol nebulization Code(s): J18.9 - PNEUMONIA, UNSPECIFIED ORGANISM (2) Vomiting Current Visit: No Status: Acute Assessment & Plan: Resolved, continue iv hydration. Code(s): R11.10 - VOMITING, UNSPECIFIED
[2020-03-28] MEDS ORDERED: NON-FORMULARY ITEM (Omeprazole 20 Mg [Prilosec 20 Mg] 20 MG) PO SCH (10:00)
[2020-03-28] MEDS ORDERED: PROTONIX 40 MG IV IV SCH (10:00)
[2020-03-28] MEDS ORDERED: ATARAX 25 MG PO PRN (10:00)
[2020-03-28] MEDS ORDERED: Spiriva 18 Mcg/Cap Inhaler IH SCH (10:00)
[2020-03-28] MEDS ORDERED: TIOTROPIUM BROMIDE IH SCH (10:00)
[2020-03-28] MEDS: Neurontin 400 MG PO SCH ×2 (10:04→21:34)
[2020-03-28] MEDS: Lopressor 25MG Tab PO SCH (10:04)
[2020-03-28] MEDS: Cymbalta 30 MG Capsule PO SCH ×2 (10:04→21:34)
[2020-03-28] MEDS: ROCEPHIN 1 Gm-D5w 50 ml Bag** 1 G/50 ML IVPB IV SCH (10:04)
[2020-03-28] MEDS: LACTULOSE 20 GM/30ML UD CUP PO SCH ×3 (10:04→21:35)
[2020-03-28] MEDS: Zestril 5 MG PO SCH (10:04)
[2020-03-28] MEDS: Protonix 40MG Tablet PO SCH (10:04)
[2020-03-28] MEDS: FEOSOL 325 MG PO SCH ×2 (10:04→21:34)
[2020-03-28] MEDS: SYNTHROID 25 MCG PO SCH (10:04)
[2020-03-28] MEDS: solu-MEDROL 40 MG IV SCH ×3 (11:01→23:24)
[2020-03-28] MEDS: Zithromax 500 MG/ 250 ML NaCl Premix 500 MG/250 ML IVPB IV SCH (11:01)
[2020-03-28] MEDS: Lasix 40 MG PO SCH (16:55)
[2020-03-28] MEDS: NORCO 7.5/325 MG TAB PO PRN (19:32)
--- NOTE | 2020-03-28 20:13 | XRAY ---
Indication: Left hip pain following fall. Comparison: None AP pelvis and 2 view left hip limited due to suboptimal technique presumed from patient body habitus. Query right L5 spondylolysis. No other bony, articular, or soft tissue abnormalities. Comment: Preliminary interpretation was made by [facility]. No critical discrepancy.
--- NOTE | 2020-03-28 20:14 | XRAY ---
Indication: Pain following fall. Comparison: None 2 view left knee demonstrates mild osteopenia, below knee amputation, and mild medial joint space narrowing. No other bony, articular, or soft tissue abnormalities. Comment: Preliminary interpretation was made by [facility]. No critical discrepancy.
[2020-03-28] MEDS: Colace 100 MG PO PRN (21:34)
[2020-03-28] MEDS: Zocor 10MG PO SCH (21:34)
[2020-03-28] MEDS: Lantus Insulin SQ SCH (21:35)
[2020-03-28] MEDS: MORPHINE SULFATE 4 MG INJ IV PRN (21:35)
[2020-03-29] MEDS: DUONEB 0.5-3 MG/3 ml Neb IH SCH ×4 (00:40→19:02)
[2020-03-29] MEDS: MORPHINE SULFATE 4 MG INJ IV PRN ×2 (01:35→21:14)
[2020-03-29 05:01] LABS: Absolute Neutrophil Ct (ANC) 6.81 (1.4-6.9); Basophil (Absolute #) 0 (0-0.4); Eosinophil (Absolute #) 0 (0-0.5); Hematocrit 29.8 % (35-47); Hemoglobin 9.4 gm/dl (12.0-16.0); Lymphocyte (Absolute #) 0.61 (1.0-4.6); Lymphocytes % 7.9 % (24.0-44.0); Mean Cell Volume 84.4 fl (78-100); Mean Corpuscular Hemoglobin 26.6 pg (26-32); Mean Corpuscular Hgb Concent. 31.5 g/dl (32-36); Mean Platelet Volume 9.1 fl (7.5-11.0); Monocytes % 3.9 % (0.0-12.0); Neutrophil % 88.2 % (36.0-66.0); Platelet Count 176 K/mm3 (150-450); Red Blood Count 3.53 M/mm3 (4.1-5.4); Red Cell Distribution Width 14.9 % (11.5-14.0); White Blood Count 7.7 K/mm3 (4.0-10.5)
[2020-03-29 05:28] LABS: ANION GAP 13.5 MEQ/L (5-15); Calcium 8.1 mg/dL (8.4-10.2); Creatinine 1 1.34 mg/dL (0.52-1.04); Potassium 4.9 mmol/L (3.5-5.1)
[2020-03-29] MEDS: solu-MEDROL 40 MG IV SCH (06:04)
[2020-03-29] MEDS: HUMALOG SQ SCH ×3 (09:55→17:30)
[2020-03-29] MEDS: HUMALOG SQ PRN ×4 (09:56→21:15)
[2020-03-29] MEDS: FEOSOL 325 MG PO SCH ×2 (09:58→21:09)
[2020-03-29] MEDS: Cymbalta 30 MG Capsule PO SCH ×2 (09:58→21:08)
[2020-03-29] MEDS: Neurontin 400 MG PO SCH ×2 (09:59→21:08)
[2020-03-29] MEDS: Protonix 40MG Tablet PO SCH (09:59)
[2020-03-29] MEDS: Lasix 40 MG PO SCH ×2 (09:59→17:22)
[2020-03-29] MEDS: LACTULOSE 20 GM/30ML UD CUP PO SCH ×3 (09:59→21:21)
[2020-03-29] MEDS: Lopressor 25MG Tab PO SCH (09:59)
[2020-03-29] MEDS ORDERED: VITAMIN D2 PO SCH ×2 (10:00→11:00)
[2020-03-29] MEDS: Zestril 5 MG PO SCH (10:00)
[2020-03-29] MEDS: SYNTHROID 25 MCG PO SCH (10:00)
[2020-03-29] MEDS: ROCEPHIN 1 Gm-D5w 50 ml Bag** 1 G/50 ML IVPB IV SCH (10:02)
[2020-03-29] MEDS: Zithromax 500 MG/ 250 ML NaCl Premix 500 MG/250 ML IVPB IV SCH (10:12)
--- NOTE | 2020-03-29 11:51 | PCM.NOTE ---
Date and Time: 03/29/20 1145 Subjective Assessment: Patient seen and examined this am. She reports that she is doing about the same since admission. She feels that her abdomen is more distended. She reports productive cough and that she has been getting breathing txs. Her routine paracentesis is due on . She denies any appetite changes. She sees Dr Valencia for GI with her cirrhosis and fatty liver. She has no other reported concerns at this time. - Review of Systems Constitutional: No Fever, No Weight Loss Eyes: No No Symptoms Ears, Nose, & Throat: No Symptoms Respiratory: Cough, Short Of Breath, No Wheezing Cardiac: Edema, No Chest Pain Abdominal/Gastrointestinal: Nausea, Vomiting, Other (Abdominal distention ), No Diarrhea, No Constipation Genitourinary Symptoms: No Symptoms Musculoskeletal: Other (L leg below knee amputation) Skin: No Symptoms Neurological: No Symptoms Psychological: Anxiety, Depression, No Alcohol Abuse, No Drug Abuse Endocrine: No Symptoms Objective Exam General Appearance: mild distress Neurologic Exam: alert, 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, cooperative, depressed mood/affect Skin Exam: jaundice Eye Exam: scleral icterus Ears, Nose, Throat Exam: moist mucous membranes (endentulous) Neck Exam: normal inspection Respiratory Exam: No normal breath sounds, No lungs clear, No respiratory distress, No crackles/rales Cardiovascular Exam: regular rate/rhythm, normal heart sounds, edema Gastrointestinal/Abdomen Exam: soft, distention, other (significant ascites), No tenderness Extremity Exam: other (left lower extremity below knee amputation) OBJECTIVE DATA Vital Signs: Vital Signs - 24 hr Temp Pulse Resp BP Pulse Ox 03/29/20 07:32 98.5 F 82 16 151/67 95 03/29/20 06:41 82 18 92 L 03/29/20 04:00 98.2 F 87 21 150/69 99 03/29/20 00:52 82 17 90 L 03/29/20 00:00 98.4 F 86 20 164/76 96 03/28/20 19:52 97.8 F 87 20 153/68 98 03/28/20 19:25 85 18 93 L 03/28/20 16:00 97.6 F 76 18 124/58 96 03/28/20 12:43 74 20 92 L 03/28/20 11:46 98.1 F 95 H 16 144/68 Pain Assessment - Last Documented Pain Intensity 8 Pain Scale Used FLACC Intake and Output: Intake & Output 03/26/20 03/27/20 03/28/20 03/29/20 11:59 11:59 11:59 11:59 Intake Total 2652 2612 Output Total 520 Balance 2659 8079 Weight 73.936 kg 82.6 kg 85 kg Lab Results: Accuchecks Date 03/29/20 Date 03/28/20 Date 03/28/20 Time 07:30 Time 22:00 Time 16:00 Accucheck Value: 285 Accucheck Value: 320 Accucheck Value: 251 Lab Results-Last 24 Hours 03/29/20 03/29/20 Range/Units 04:59 04:59 WBC 7.7 (4.0-10.5) K/mm3 RBC 3.53 L (4.1-5.4) M/mm3 Hgb 9.4 L (12.0-16.0) gm/dl Hct 29.8 L (35-47) % MCV 84.4 (78-100) fl MCH 26.6 (26-32) pg MCHC 31.5 L (32-36) g/dl RDW 14.9 H (11.5-14.0) % Plt Count 176 (150-450) K/mm3 MPV 9.1 (7.5-11.0) fl Gran % 88.2 H (36.0-66.0) % Eos # (Auto) 0 (0-0.5) Absolute Lymphs (auto) 0.61 L (1.0-4.6) Absolute Monos (auto) 0.30 (0.0-1.3) Lymphocytes % 7.9 L (24.0-44.0) % Monocytes % 3.9 (0.0-12.0) % Eosinophils % 0.0 (0.00-5.0) % Basophils % 0.0 (0.0-0.4) % Absolute Granulocytes 6.81 (1.4-6.9) Basophils # 0 (0-0.4) Sodium 129 L (137-145) mmol/L Potassium 4.9 (3.5-5.1) mmol/L Chloride 98 (98-107) mmol/L Carbon Dioxide 23 (22-30) mmol/L Anion Gap 13.5 (5-15) MEQ/L BUN 20 H (7-17) mg/dL Creatinine 1.34 H (0.52-1.04) mg/dL Estimated GFR 44.1 ML/MIN Glucose 285 H (74-106) mg/dL Calcium 8.1 L (8.4-10.2) mg/dL Radiology Exams: Radiology Procedures Category Date Time Status ABDOMEN AND PELVIS W/0 CONTRAS [CT] Stat Exams 03/27/20 12:20 Completed CHEST 1 VIEW (PORTABLE) Stat Exams 03/27/20 11:24 Completed HIP UNI (2V) INCL PEL IF DONE Stat Exams 03/28/20 19:21 Completed KNEE (1 OR 2 VIEW) Stat Exams 03/28/20 19:21 Completed Assessment/Plan (1) COPD (chronic obstructive pulmonary disease) Current Visit: Yes Status: Acute Qualifiers: COPD type: chronic bronchitis Chronic bronchitis type: mixed simple and mucopurulent Qualified Code(s): J41.8 - Mixed simple and mucopurulent chronic bronchitis Assessment & Plan: Patient is on duonebs, steroids and antibiotics. Will encourage incentive spirometry as well. Patient is saturating 92% on room air. She has productive cough. Will continue on current therapy at this time. Will add mucinex for cough (2) Cirrhosis of liver with ascites Current Visit: Yes Status: Acute Qualifiers: Hepatic cirrhosis type: unspecified hepatic cirrhosis Qualified Code(s): K74.60 - Unspecified cirrhosis of liver; R18.8 - Other ascites Assessment & Plan: Scheduled for routine paracentesis. By admission weight and daily weight patient appears to have gained 18 pounds over the past couple of days. Unsure if this is accurate but patient would likely benefit from routine tap tomorrow instead of tues. She sees Dr Valencia for her cirrhosis. Unsure if patient is candidate for TIPS procedure. Code(s): K74.60 - UNSPECIFIED CIRRHOSIS OF LIVER; R18.8 - OTHER ASCITES (3) Pneumonia Current Visit: Yes Status: Acute Qualifiers: Pneumonia type: due to unspecified organism Laterality: right Lung location: unspecified part of lung Qualified Code(s): J18.9 - Pneumonia, unspecified organism Assessment & Plan: Patient on rocephin and azith for potential community acquired pneumonia. This would also address COPD exacerbation as well Code(s): J18.9 - PNEUMONIA, UNSPECIFIED ORGANISM (4) Hyperkalemia Current Visit: Yes Status: Acute Assessment & Plan: Patient was given kayexlate for her elevated potassium which has trended down Code(s): E87.5 - HYPERKALEMIA (5) Hyponatremia Current Visit: No Status: Acute Assessment & Plan: Intially started trending up then back down. Patient pulled iv out. Will not replace IV at this time as patient is fluid overloaded. Will encourage PO intake of water as patient appears to be developing some mild alison or has hx of ckd Code(s): E87.1 - HYPO-OSMOLALITY AND HYPONATREMIA (6) Hyperglycemia Current Visit: Yes Status: Acute Assessment & Plan: Patient's BS are likely trending up due to current steroid use. Nurse reports BS in the 400s. Will continue to trend and adjust insulin if necessary. Code(s): R73.9 - HYPERGLYCEMIA, UNSPECIFIED (7) Anemia of chronic disease Current Visit: No Status: Acute Assessment & Plan: Will continue to trend hgb Code(s): D63.8 - ANEMIA IN OTHER CHRONIC DISEASES CLASSIFIED ELSEWHERE (8) Nausea and vomiting Current Visit: No Status: Acute Qualifiers: Vomiting type: unspecified Vomiting Intractability: non-intractable Qualified Code(s): R11.2 - Nausea with vomiting, unspecified Assessment & Plan: appears improved since admission will continue to monitor Code(s): R11.2 - NAUSEA WITH VOMITING, UNSPECIFIED
[2020-03-29] MEDS: Mucinex 600MG ER Tabs PO SCH ×2 (14:14→21:10)
[2020-03-29] MEDS: NORCO 7.5/325 MG TAB PO PRN (15:53)
[2020-03-29] MEDS ORDERED: Aldactone 25 MG PO ONE (16:14)
[2020-03-29] MEDS: Lasix 20 MG/2 ML IV ONE ×2 (16:31→17:22)
[2020-03-29] MEDS: Colace 100 MG PO PRN (21:08)
[2020-03-29] MEDS: Zocor 10MG PO SCH (21:09)
[2020-03-29] MEDS: Lantus Insulin SQ SCH (21:10)
[2020-03-30] MEDS: DUONEB 0.5-3 MG/3 ml Neb IH SCH ×4 (01:03→19:01)
[2020-03-30] MEDS: HUMALOG SQ PRN ×2 (08:15→12:00)
[2020-03-30] MEDS: HUMALOG SQ SCH ×3 (08:15→17:49)
--- NOTE | 2020-03-30 09:34 | PCM.NOTE ---
Date and Time: 03/30/20930 Subjective Assessment: Breathing better, no vomiting, still distended and awaiting paracentisis for cirrhosis, pt. notes unable to obtain ride back, - Review of Systems Constitutional: No Fever, No Chills Eyes: No Symptoms Ears, Nose, & Throat: No Symptoms Respiratory: No Cough, No Short Of Breath Cardiac: No Chest Pain, No Edema, No Syncope Abdominal/Gastrointestinal: No Abdominal Pain, No Nausea, No Vomiting, No Diarrhea Genitourinary Symptoms: No Dysuria Musculoskeletal: No Back Pain, No Neck Pain Skin: No Rash Neurological: No Dizziness, No Focal Weakness, No Sensory Changes Psychological: No Symptoms Endocrine: No Symptoms Hematologic/Lymphatic: No Symptoms Immunological/Allergic: No Symptoms Objective Exam General Appearance: no apparent distress, alert Neurologic Exam: alert, 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, cooperative, normal mood/affect, nml cerebellar function, sensation nml, No motor deficits Skin Exam: normal color, warm, dry Eye Exam: PERRL, EOMI, eyes nml inspection Ears, Nose, Throat Exam: normal ENT inspection, pharynx normal, moist mucous membranes Neck Exam: normal inspection, non-tender, supple, full range of motion Respiratory Exam: normal breath sounds, lungs clear, No respiratory distress Cardiovascular Exam: regular rate/rhythm, normal heart sounds Gastrointestinal/Abdomen Exam: soft, distention, No tenderness, No mass Extremity Exam: normal inspection, normal range of motion Back Exam: normal inspection, normal range of motion, No CVA tenderness, No vertebral tenderness Pelvic Exam: deferred Rectal Exam: deferred OBJECTIVE DATA Vital Signs: Vital Signs - 24 hr Temp Pulse Resp BP Pulse Ox 03/30/20 07:15 98.8 F 76 18 135/61 95 03/30/20 06:48 76 18 98 03/30/20 04:00 98.2 F 75 20 114/56 94 L 03/30/20 01:04 76 16 96 03/29/20 23:56 98.5 F 80 17 140/83 98 03/29/20 20:00 98.5 F 80 20 128/58 93 L 03/29/20 19:02 75 20 94 L 03/29/20 16:00 98.0 F 88 16 137/63 95 03/29/20 13:10 78 20 94 L 03/29/20 11:55 97.9 F 83 16 169/74 94 L Pain Assessment - Last Documented Pain Intensity 5 Pain Scale Used 0-10 Pain Scale Intake and Output: Intake & Output 03/27/20 03/28/20 03/29/20 03/30/20 11:59 11:59 11:59 11:59 Intake Total 2652 2612 1450 Output Total 520 200 Balance 2652 2092 1250 Weight 73.936 kg 82.6 kg 85 kg 86.3 kg Lab Results: Accuchecks Date 03/29/20 Date 03/29/20 Date 03/29/20 Time 22:00 Time 16:30 Time 11:30 Accucheck Value: 171 Accucheck Value: 217 Accucheck Value: 154 Accucheck Value: 460 Lab Results-Last 24 Hours 03/29/20 Range/Units 12:15 Ammonia 18 (9-30) umol/L Radiology Exams: Radiology Procedures Category Date Time Status HIP UNI (2V) INCL PEL IF DONE Stat Exams 03/28/20 19:21 Completed KNEE (1 OR 2 VIEW) Stat Exams 03/28/20 19:21 Completed Assessment/Plan (1) Pneumonia Current Visit: Yes Status: Acute Qualifiers: Pneumonia type: due to unspecified organism Laterality: right Lung location: unspecified part of lung Qualified Code(s): J18.9 - Pneumonia, unspecified organism Assessment & Plan: clinically improving, no changes Code(s): J18.9 - PNEUMONIA, UNSPECIFIED ORGANISM (2) Vomiting Current Visit: No Status: Acute Assessment & Plan: resolved, will have therapeutic paracentisis tomorrow Code(s): R11.10 - VOMITING, UNSPECIFIED
[2020-03-30] MEDS: LACTULOSE 20 GM/30ML UD CUP PO SCH ×3 (09:57→22:22)
[2020-03-30] MEDS: ROCEPHIN 1 Gm-D5w 50 ml Bag** 1 G/50 ML IVPB IV SCH (09:57)
[2020-03-30] MEDS: Zestril 5 MG PO SCH (09:58)
[2020-03-30] MEDS: FEOSOL 325 MG PO SCH ×2 (09:58→22:21)
[2020-03-30] MEDS: Lasix 40 MG PO SCH ×2 (09:59→17:49)
[2020-03-30] MEDS: SYNTHROID 25 MCG PO SCH (09:59)
[2020-03-30] MEDS: Lopressor 25MG Tab PO SCH (09:59)
[2020-03-30] MEDS: Mucinex 600MG ER Tabs PO SCH ×2 (09:59→22:21)
[2020-03-30] MEDS: Cymbalta 30 MG Capsule PO SCH ×2 (09:59→22:20)
[2020-03-30] MEDS: Protonix 40MG Tablet PO SCH (10:00)
[2020-03-30] MEDS: Neurontin 400 MG PO SCH ×2 (10:00→22:20)
[2020-03-30] MEDS: Zithromax 500 MG/ 250 ML NaCl Premix 500 MG/250 ML IVPB IV SCH (10:46)
[2020-03-30] MEDS: NORCO 7.5/325 MG TAB PO PRN (12:03)
[2020-03-30] MEDS: MORPHINE SULFATE 4 MG INJ IV PRN (19:39)
[2020-03-30] MEDS: Zocor 10MG PO SCH (22:21)
[2020-03-30] MEDS: Colace 100 MG PO PRN (22:21)
[2020-03-30] MEDS: Lantus Insulin SQ SCH (22:22)
[2020-03-31] MEDS: DUONEB 0.5-3 MG/3 ml Neb IH SCH ×2 (00:55→07:56)
[2020-03-31] MEDS: NORCO 7.5/325 MG TAB PO PRN ×2 (01:12→12:14)
[2020-03-31] MEDS: ROCEPHIN 1 Gm-D5w 50 ml Bag** 1 G/50 ML IVPB IV SCH (09:25)
[2020-03-31] MEDS: LACTULOSE 20 GM/30ML UD CUP PO SCH (09:30)
[2020-03-31] MEDS: Mucinex 600MG ER Tabs PO SCH (09:45)
[2020-03-31] MEDS: FEOSOL 325 MG PO SCH (09:46)
[2020-03-31] MEDS: Cymbalta 30 MG Capsule PO SCH (09:46)
[2020-03-31] MEDS: Lopressor 25MG Tab PO SCH (09:47)
[2020-03-31] MEDS: Neurontin 400 MG PO SCH (09:47)
[2020-03-31] MEDS: SYNTHROID 25 MCG PO SCH (09:47)
[2020-03-31] MEDS: Protonix 40MG Tablet PO SCH (09:47)
[2020-03-31] MEDS: Lasix 40 MG PO SCH (09:48)
[2020-03-31] MEDS: Zestril 5 MG PO SCH (09:48)
[2020-03-31] MEDS: Zithromax 500 MG/ 250 ML NaCl Premix 500 MG/250 ML IVPB IV SCH (09:49)
[2020-03-31] MEDS: HUMALOG SQ SCH ×2 (11:46→12:23)
[2020-03-31 12:28] VITALS: BP 143/63; PULSE 76; O2SAT 96
== END 2020-03-31 13:30 | disposition home or self-care (01) | DRG 194 ==
LOC: ED 10:41 → MED SURG 14:25 → OBSVTOIN 03-29 11:45
PROVIDERS: ADMIT Family Medicine; ATTEND Family Medicine
DX: J18.9 Pneumonia, unspecified organism (principal); R18.8 Other ascites; E87.1 Hypo-osmolality and hyponatremia; R11.2 Nausea with vomiting, unspecified; K74.60 Unspecified cirrhosis of liver; I10 Essential (primary) hypertension; E05.90 Thyrotoxicosis, unspecified without thyrotoxic crisis or storm; E11.9 Type 2 diabetes mellitus without complications; J44.9 Chronic obstructive pulmonary disease, unspecified; E87.5 Hyperkalemia; D63.8 Anemia in other chronic diseases classified elsewhere; Z79.899 Other long term (current) drug therapy; Z89.512 Acquired absence of left leg below knee
CPT/HCPCS: 36415; 49083; 71045; 73502; 73560; 74176; 80048; 80053; 81001; 82140; 82150; 82962; 83605; 83690; 84134; 84484; 85025; 93268; 94150; 94640; 94760; 96360; 96361; 96365; 96374; 96375; 99284; G0378; J0456; J0696; J1817; J1940; J2270; J2405; J2920; Q0162; A9270-GY

== ENCOUNTER 2020-04-13 18:40 | Emergency (ER) | payer MEDICARE ==
[2020-04-13] MEDS ORDERED: Zofran 4 MG/2 ML VIAL IV ONE (19:05)
[2020-04-13] MEDS ORDERED: Zofran 4 MG/2 ML VIAL ONE (19:08)
--- NOTE | 2020-04-13 19:22 | ERPHSYRPT ---
- History of Present Illness Historian: patient Exam Limitations: no limitations Patient Subjective Stated Complaint: vomiting x 1.5 days with severe abdominal pain. Triage Nursing Assessment: pt A&Ox4. pt arrive via personal wheelchair. 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 Physician History: 54 yo wf w N/V/periumbilical pain x2 days. Pt states pain 8 on scale/nothing makes better or worse/no radiation. She denies hematemesis/diarrhea /melena/hematochezia/dysuria/hematuria/fever/chest pain. Timing/Duration: day(s) (2days) Activities at Onset: none Abdominal Pain Onset Location: periumbilical Pain Radiation: no radiation Severity of Pain-Max: severe Severity of Pain-Current: severe Modifying Factors: Improves With: nothing Associated Symptoms: nausea, vomiting, No back, No chest pain, No diaphoresis, No diarrhea, No fever/chills, No fatigue, No headache, No heartburn, No loss of appetite, No neck pain, No rash, No shortness of breath, No syncope, No weakness Previous symptoms: same symptoms as today Allergies/Adverse Reactions: adhesive tape Allergy (Mild, Verified 04/13/20 18:51) redness bee stings Allergy (Mild, Uncoded 04/13/20 18:51) Anaphylactic Reaction trouble breathing and swelling. Home Medications: Duloxetine HCl 30 mg [Cymbalta 30 MG Capsule] 30 mg PO BID 11/17/12 [History] Albuterol Sulfate [Proair Hfa] 2 puff IH Q4HPRN PRN 04/21/15 [History] Omeprazole 20 MG [Prilosec 20 mg] 20 mg PO DAILY 04/21/15 [History] Pravastatin Sodium [Pravachol] 10 mg PO HS 02/07/16 [History] Gabapentin [Gralise] 600 mg PO TID 11/11/16 [History] Docusate Sodium 100 mg [Colace 100 MG] 100 mg PO HSPRN PRN 01/18/19 [History] Ergocalciferol (Vitamin D2) [Vitamin D] 50,000 units PO CHEW 01/18/19 [History] Ferrous Sulfate 325 mg PO BID 01/18/19 [History] Hydroxyzine HCl 10 mg PO BID 01/18/19 [History] Levothyroxine Sodium 25 Mcg [Synthroid 25 Mcg] 25 mcg PO DAILY 01/18/19 [History] Insulin Glargine [Lantus Insulin] 30 units SQ HS 09/27/19 [History] Metoprolol Tartrate 25 mg [Lopressor 25MG Tab] 1 tab PO DAILY 09/27/19 [History] Tiotropium [place] [Spiriva Respimat] 1 puff IH DAILY 10/14/19 [History] Furosemide 40 mg [Lasix 40 MG] 40 mg PO BID 10/29/19 [History] Lactulose [Lactulose 20 gm/30Ml Ud Cup] 20 gm PO TID 10/29/19 [History] Hydrocodone/Acetaminophen [Hydrocodone-Acetamin 7.5-325] 1 tab PO BIDPRN PRN MDD \\ 03/27/20 [History] Insulin Lispro [Humalog Kwikpen U-100] 10 unit SQ TIDWMEALS 03/27/20 [History] Promethazine HCl 25 mg [Phenergan 25 mg] 25 mg PO Q6HPRN PRN 03/27/20 [ History] Hx Tetanus, Diphtheria Vaccination/Date Given: Yes Hx Influenza Vaccination/Date Given: Yes Hx Pneumococcal Vaccination/Date Given: Yes Immunizations Up to Date: Yes Travel Risk - International Travel Have you traveled outside of the country in past 3 weeks: No - Coronavirus Screening Are you exhibiting any of the following symptoms?: Yes Symptoms: Vomiting/Diarrhea Close contact with a COVID-19 positive Pt in past 14-21 Days: No - Review of Systems Constitutional: No Symptoms Eyes: No Symptoms Ears, Nose, & Throat: No Symptoms Respiratory: No Symptoms Cardiac: No Symptoms Abdominal/Gastrointestinal: Abdominal Pain, Nausea, Vomiting, No Diarrhea, No Constipation, No Hematemesis, No Hematochezia, No Melena, No Dysphagia, No Appetite Changes Genitourinary Symptoms: No Symptoms Musculoskeletal: No Symptoms Skin: No Symptoms Neurological: No Symptoms Psychological: No Symptoms Endocrine: No Symptoms Hematologic/Lymphatic: No Symptoms Immunological/Allergic: No Symptoms - Past Medical History Pertinent Past Medical History: Yes Neurological History: No Pertinent History ENT History: No Pertinent History Cardiac History: Hypertension Respiratory History: Asthma, COPD, Pneumonia Endocrine Medical History: Diabetes Type II, Hyperthyroidism Musculoskeletal History: Fractures GI Medical History: GERD, Other History: No Pertinent History Psycho-Social History: Anxiety, Depression Female Reproductive Disorders: No Pertinent History Other Medical History: left ankle fx with mult surgeries, in February 2019 bka,. ascites. fatty liver - Past Surgical History Past Surgical History: Yes Neuro Surgical History: No Pertinent History Cardiac: No Pertinent History Respiratory: No Pertinent History Gastrointestinal: Cholecystectomy, Exploratory Laparoscopy Genitourinary: No Pertinent History Musculoskeletal: Amputation Female Surgical History: Section, Hysterectomy Other Surgical History: foot surgery, screw placed in left big toe, removal, and antibiotic bead placement. mult lt foot surgeries. LT BKA February 2019 - Social History Smoking Status: Current every day smoker How long have you smoked: "35 years" Exposure to second hand smoke: Yes Drug Use: none Patient Lives Alone: No Significant Family History: no pertinent family hx - Female History Hx Now: No - Nursing Vital Signs Nursing Vital Signs: Initial Vital Signs Temperature 98.1 F 04/13/20 18:45 Pulse Rate 110 H 04/13/20 18:45 Respiratory Rate 22 04/13/20 18:45 Blood Pressure 176/89 04/13/20 18:45 O2 Sat by Pulse Oximetry 94 L 04/13/20 18:45 Pain Scale Pain Intensity 0 - Physical Exam General Appearance: no apparent distress Eye Exam: PERRL/EOMI, eyes nml inspection Ears, Nose, Throat Exam: normal ENT inspection, TMs normal, pharynx normal, moist mucous membranes Neck Exam: normal inspection, non-tender, supple, full range of motion, No meningismus, No Brudzinski, No Kernig's Respiratory Exam: airway intact, rhonchi, wheezing, No respiratory distress Cardiovascular Exam: tachycardia Gastrointestinal/Abdomen Exam: soft, normal bowel sounds, tenderness Back Exam: normal inspection, normal range of motion, No CVA tenderness, No vertebral tenderness, No rash Extremity Exam: normal inspection, normal range of motion Neurologic Exam: alert, 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, cooperative, hardness tester II-XII nml as tested, normal mood/affect, nml station & gait, sensation nml, No motor deficits, No sensory deficit Skin Exam: normal color, warm, dry Lymphatic Exam: adenopathy SpO2 Interpretation: normal SpO2: 94 O2 Delivery: Room Air - Course Nursing assessment & vital signs reviewed: Yes - CT Exams Abdomen/Pelvis CT Interpretation: Tele-radiologist Report (Notrhing acute/Chronic ascites/splenomegaly/cirrhosis) Ordered Tests: Active Orders 24 hr Category Date Time Status ACCUCHECK [Accucheck] STAT Care 04/13/20 19:03 Completed Senior Qa Engineer STAT Care 04/13/20 19:00 Completed EKG-ER Only STAT Care 04/13/20 19:00 Completed IV Insertion STAT Care 04/13/20 19:00 Completed cath [Cath for Specimen-Straight] STAT Care 04/13/20 20:57 Completed ABDOMEN AND PELVIS W/0 CONTRAS [CT] Stat Exams 04/13/20 20:07 Taken AMYLASE Stat Lab 04/13/20 19:20 Completed CBC W DIFF Stat Lab 04/13/20 19:20 Completed CMP Stat Lab 04/13/20 19:20 Completed LIPASE Stat Lab 04/13/20 19:20 Completed TROPONIN Q3H Lab 04/13/20 19:30 Completed UA W/RFX UR CULTURE Stat Lab 04/13/20 Completed Urine Triage Profile Stat Lab 04/13/20 Completed Medication Summary Discontinued Medications Generic Name Dose Route Start Last Admin Trade Name Freq PRN Reason Stop Dose Admin Fentanyl Citrate 50 mcg 04/13/20 20:06 04/13/20 20:10 Sublimaze 100 Mcg/2 Ml IV 04/13/20 20:07 50 mcg STAT ONE Administration Fentanyl Citrate Confirm 04/13/20 20:07 Sublimaze 100 Mcg/2 Ml Administered 04/13/20 20:08 Dose 100 mcg .ROUTE .STK-MED ONE Sodium Chloride 1,000 mls @ 999 mls/hr 04/13/20 20:06 04/13/20 21:12 Sodium Chloride 0.9% 1000 Ml IV 04/13/20 21:06 Infused .Q1H1M STA Infusion Sodium Chloride Confirm 04/13/20 20:09 Sodium Chloride 0.9% 1000 Ml Administered 04/13/20 20:10 Dose 1,000 mls @ ud .ROUTE .STK-MED ONE Ondansetron HCl 4 mg 04/13/20 19:05 04/13/20 19:09 Zofran 4 Mg/2 Ml Vial IV 04/13/20 19:06 4 mg STAT ONE Administration Ondansetron HCl Confirm 04/13/20 19:08 Zofran 4 Mg/2 Ml Vial Administered 04/13/20 19:09 Dose 4 mg .ROUTE .STK-MED ONE Lab/Rad Data: Laboratory Result Diagrams 04/13/20 19:20 04/13/20 19:20 Laboratory Results 04/13/20 04/13/20 04/13/20 Range/Units Unknown Unknown 19:30 WBC (4.0-10.5) K/mm3 RBC (4.1-5.4) M/mm3 Hgb (12.0-16.0) gm/dl Hct (35-47) % MCV (78-100) fl MCH (26-32) pg MCHC (32-36) g/dl RDW (11.5-14.0) % Plt Count (150-450) K/mm3 MPV (7.5-11.0) fl Gran % (36.0-66.0) % Eos # (Auto) (0-0.5) Absolute Lymphs (auto) (1.0-4.6) Absolute Monos (auto) (0.0-1.3) Lymphocytes % (24.0-44.0) % Monocytes % (0.0-12.0) % Eosinophils % (0.00-5.0) % Basophils % (0.0-0.4) % Absolute Granulocytes (1.4-6.9) Basophils # (0-0.4) Sodium (137-145) mmol/L Potassium (3.5-5.1) mmol/L Chloride (98-107) mmol/L Carbon Dioxide (22-30) mmol/L Anion Gap (5-15) MEQ/L BUN (7-17) mg/dL Creatinine (0.52-1.04) mg/dL Estimated GFR ML/MIN Glucose (74-106) mg/dL Calcium (8.4-10.2) mg/dL Total Bilirubin (0.2-1.3) mg/dL AST (14-36) U/L ALT (0-35) U/L Alkaline Phosphatase (38-126) U/L Troponin I < 0.012 (0.000-0.034) ng/mL Serum Total Protein (6.3-8.2) g/dL Albumin (3.5-5.0) g/dL Amylase (30-110) U/L Lipase (23-300) U/L Urine Color YELLOW (YELLOW) Urine Appearance CLEAR (CLEAR) Urine pH 7.0 (5-6) Ur Specific [place] 1.012 (1.005-1.025) Urine Protein 100 (Negative) Urine Ketones NEGATIVE (NEGATIVE) Urine Blood NEGATIVE (0-5) Ubaldo/ul Urine Nitrite NEGATIVE (NEGATIVE) Urine Bilirubin NEGATIVE (NEGATIVE) Urine Urobilinogen NEGATIVE (0-1) mg/dL Ur Leukocyte Esterase NEGATIVE (NEGATIVE) Urine WBC (Auto) NONE (0-5) /HPF Urine RBC (Auto) 0-2 (0-2) /HPF U Epithel Cells (Auto) NONE (FEW) /HPF Urine Bacteria (Auto) NONE (NEGATIVE) /HPF Urine Culture Reflexed NO (NO) Urine Glucose 50 (NEGATIVE) mg/dL Urine Opiates Level POSITIVE (NEGATIVE) Ur Methadone NEGATIVE (NEGATIVE) Urine Barbiturates NEGATIVE (NEGATIVE) Ur Phencyclidine (PCP) NEGATIVE (NEGATIVE) Urine Amphetamine NEGATIVE (NEGATIVE) U Benzodiazepine Level NEGATIVE (NEGATIVE) Urine Cocaine NEGATIVE (NEGATIVE) Urine Marijuana (THC) NEGATIVE (NEGATIVE) 04/13/20 04/13/20 Range/Units 19:20 19:20 WBC 9.7 (4.0-10.5) K/mm3 RBC 3.50 L (4.1-5.4) M/mm3 Hgb 9.5 L (12.0-16.0) gm/dl Hct 29.1 L (35-47) % MCV 83.1 (78-100) fl MCH 27.1 (26-32) pg MCHC 32.6 (32-36) g/dl RDW 16.5 H (11.5-14.0) % Plt Count 187 (150-450) K/mm3 MPV 8.6 (7.5-11.0) fl Gran % 80.8 H (36.0-66.0) % Eos # (Auto) 0.11 (0-0.5) Absolute Lymphs (auto) 1.30 (1.0-4.6) Absolute Monos (auto) 0.43 (0.0-1.3) Lymphocytes % 13.4 L (24.0-44.0) % Monocytes % 4.4 (0.0-12.0) % Eosinophils % 1.1 (0.00-5.0) % Basophils % 0.3 (0.0-0.4) % Absolute Granulocytes 7.81 H (1.4-6.9) Basophils # 0.03 (0-0.4) Sodium 127 L (137-145) mmol/L Potassium 5.5 H (3.5-5.1) mmol/L Chloride 96 L (98-107) mmol/L Carbon Dioxide 24 (22-30) mmol/L Anion Gap 11.9 (5-15) MEQ/L BUN 15 (7-17) mg/dL Creatinine 1.06 H (0.52-1.04) mg/dL Estimated GFR 57.9 ML/MIN Glucose 176 H (74-106) mg/dL Calcium 8.6 (8.4-10.2) mg/dL Total Bilirubin 0.60 (0.2-1.3) mg/dL AST 23 (14-36) U/L ALT 12 (0-35) U/L Alkaline Phosphatase 230 H (38-126) U/L Troponin I (0.000-0.034) ng/mL Serum Total Protein 7.0 (6.3-8.2) g/dL Albumin 3.1 L (3.5-5.0) g/dL Amylase 46 (30-110) U/L Lipase 80 (23-300) U/L Urine Color (YELLOW) Urine Appearance (CLEAR) Urine pH (5-6) Ur Specific [place] (1.005-1.025) Urine Protein (Negative) Urine Ketones (NEGATIVE) Urine Blood (0-5) Ubaldo/ul Urine Nitrite (NEGATIVE) Urine Bilirubin (NEGATIVE) Urine Urobilinogen (0-1) mg/dL Ur Leukocyte Esterase (NEGATIVE) Urine WBC (Auto) (0-5) /HPF Urine RBC (Auto) (0-2) /HPF U Epithel Cells (Auto) (FEW) /HPF Urine Bacteria (Auto) (NEGATIVE) /HPF Urine Culture Reflexed (NO) Urine Glucose (NEGATIVE) mg/dL Urine Opiates Level (NEGATIVE) Ur Methadone (NEGATIVE) Urine Barbiturates (NEGATIVE) Ur Phencyclidine (PCP) (NEGATIVE) Urine Amphetamine (NEGATIVE) U Benzodiazepine Level (NEGATIVE) Urine Cocaine (NEGATIVE) Urine Marijuana (THC) (NEGATIVE) - Progress Progress: improved Progress Note: 04/13/20 22:10 Pain improved w 50mcg IV [id number] IV zofran/1L NS bolus 04/13/20 23:50 Counseled pt/family regarding: lab results, diagnosis, need for follow-up, rad results - Departure Departure Disposition: Home Clinical Impression: Abdominal pain, Cirrhosis of liver Condition: Stable Critical Care Time: No Referrals: SARAH AMIN, [Primary Care Provider] - Instructions: Acute Abdomen (Belly Pain), Adult (DC) Additional Instructions: Follow up with your family MD in AM Return to ER for increasing pain or temperature greater than 100.5
[2020-04-13 19:38] LABS: Absolute Neutrophil Ct (ANC) 7.81 (1.4-6.9); BASOPHIL % 0.3 % (0.0-0.4); Basophil (Absolute #) 0.03 (0-0.4); Eosinophil % 1.1 % (0.00-5.0); Eosinophil (Absolute #) 0.11 (0-0.5); Hematocrit 29.1 % (35-47); Hemoglobin 9.5 gm/dl (12.0-16.0); Lymphocytes % 13.4 % (24.0-44.0); Mean Cell Volume 83.1 fl (78-100); Mean Corpuscular Hemoglobin 27.1 pg (26-32); Mean Corpuscular Hgb Concent. 32.6 g/dl (32-36); Mean Platelet Volume 8.6 fl (7.5-11.0); Monocyte (Absolute #) 0.43 (0.0-1.3); Monocytes % 4.4 % (0.0-12.0); Neutrophil % 80.8 % (36.0-66.0); Platelet Count 187 K/mm3 (150-450); Red Cell Distribution Width 16.5 % (11.5-14.0); White Blood Count 9.7 K/mm3 (4.0-10.5)
[2020-04-13 19:43] LABS: ALBUMIN 3.1 g/dL (3.5-5.0); ANION GAP 11.9 MEQ/L (5-15); BILIRUBIN,TOTAL 0.6 mg/dL (0.2-1.3); Calcium 8.6 mg/dL (8.4-10.2); Creatinine 1 1.06 mg/dL (0.52-1.04); Potassium 5.5 mmol/L (3.5-5.1)
[2020-04-13] MEDS ORDERED: SUBLIMAZE 100 MCG/2 ML IV ONE (20:06)
[2020-04-13] MEDS ORDERED: Sodium Chloride 0.9% 1000 ML 1,000 ML IV STA (20:06)
[2020-04-13] MEDS ORDERED: SUBLIMAZE 100 MCG/2 ML ONE (20:07)
[2020-04-13] MEDS ORDERED: Sodium Chloride 0.9% 1000 ML 1,000 ML ONE (20:09)
[2020-04-13 21:31] LABS: Appearance CLEAR (CLEAR); Bilirubin NEGATIVE (NEGATIVE); Blood NEGATIVE Ery/ul (0-5); Glucose 50 mg/dL (NEGATIVE); Ketones NEGATIVE (NEGATIVE); Leukocyte Esterase NEGATIVE (NEGATIVE); Nitrite NEGATIVE (NEGATIVE); Protein,Urine Dip 100 (Negative); RBC 0-2 /HPF (0-2); Specific Gravity 1.012 (1.005-1.025); Urobilinogen NEGATIVE mg/dL (0-1)
[2020-04-13 21:44] LABS: Amphetamine,Urine NEGATIVE (NEGATIVE); Barbiturate,Urine NEGATIVE (NEGATIVE); Benzodiazepine,Urine NEGATIVE (NEGATIVE); Cocaine,Urine NEGATIVE (NEGATIVE); Methadone,Urine NEGATIVE (NEGATIVE); Opiate,Urine POSITIVE (NEGATIVE); PCP,Urine NEGATIVE (NEGATIVE); THC,Urine NEGATIVE (NEGATIVE)
[2020-04-13 22:09] VITALS: BP 164/108; PULSE 102
[2020-04-13 22:13] VITALS: O2SAT 94
--- NOTE | 2020-04-14 08:42 | XRAY ---
Exam: CT of the abdomen and pelvis without IV contrast from 04/13/2020. CTDI: 20.69 mGy Comparison: CT of the abdomen and pelvis without IV contrast from 03/27/2020. Indication: Abdominal and periumbilical pain, emesis, history of cirrhosis and fatty liver. The patient also has a history of prior cholecystectomy and hysterectomy. Technique: Non-IV contrast axial images were obtained through the abdomen and pelvis. Reconstructed coronal and sagittal images were created and reviewed. Findings: The lung bases again reveal scattered prominent interstitial and alveolar bibasilar opacities with extensive bronchiectasis. This is similar to 03/27/2020. No posterior pleural fluid is seen. The transverse heart size remains within normal limits. The liver again appears relatively small with an abnormal fine nodular contour consistent with advanced cirrhosis representing no change. No intrahepatic biliary duct distention is seen. Surgical clips consistent with prior cholecystectomy are seen. I also note at least moderate splenomegaly measuring 17.0 cm in length on coronal image #122. This appears relatively similar to the prior CAT scan on 03/27/2020. No focal splenic mass is seen. I again note numerous splenorenal varices within the midabdomen and left hemiabdomen. The spleen and adrenal glands appear unremarkable. The right kidney appears slightly smaller than the left kidney representing no change. The right kidney measures about 8.7 cm in length and the left kidney measures about 10.7 cm in length. No hydronephrosis is seen. There appears to be some mild vascular calcification within the right kidney. Moderate atherosclerotic calcification is seen within the distal abdominal aorta and iliac arteries. No abdominal aortic aneurysm or abnormal retroperitoneal lymphadenopathy is seen. I do note a few nonspecific shotty periaortic lymph nodes which I believe are unchanged. Incidentally, a portion of the skin line within the anterior left lateral aspect of the abdomen has been cut off from the CT [id number]. There is no free intraperitoneal air. However, there is massive ascites within the abdomen and pelvis, which I believe is slightly increased as compared to 03/27/2020. The bowel appears nonobstructed. I again note small umbilical and left periumbilical hernias containing fat and some ascites. Some varices are noted within the subcutaneous fat anteriorly within the left hemiabdomen. I see no evidence of appendicitis within the right lower quadrant. The uterus is surgically absent. The urinary bladder is moderately distended, but otherwise unremarkable. I again see the marked ascites within the pelvis. No enlarged pelvic lymph nodes are seen. There are some increased markings within the subcutaneous fat of the lower abdomen and pelvis which may reflect interstitial edema or bruising. Correlate clinically. The skeleton reveals no acute fracture or aggressive bone lesion. Mild diffuse degenerative changes are seen within the lower thoracic spine. There is also some anterior lateral osteophyte formation throughout the lumbar spine. Impression: 1. Compared to the prior CT study from 03/27/2020, there is massive ascites which I believe is slightly increased from the prior study. 2. Stable prominent bibasilar prominent interstitial/alveolar opacities with bronchiectasis, apparently chronic. 3. Hepatic cirrhosis, at least moderate splenomegaly, and numerous splenorenal varices are again seen. 4. I again see a nonobstructing umbilical hernia and a smaller left periumbilical hernia. Compared to the prior study, there are some increased markings within the lower anterior abdominal/pelvic subcutaneous fat which may relate to interstitial edema or bruising. Correlate clinically. 5. Status post cholecystectomy and hysterectomy. 6. No other acute process is seen within the abdomen or pelvis.
== END 2020-04-13 22:24 | disposition home or self-care (01) ==
LOC: ED 18:40
DX: R10.9 Unspecified abdominal pain (principal); K74.69 Other cirrhosis of liver; Z79.899 Other long term (current) drug therapy; J44.9 Chronic obstructive pulmonary disease, unspecified; E11.9 Type 2 diabetes mellitus without complications; E05.90 Thyrotoxicosis, unspecified without thyrotoxic crisis or storm; K21.9 Gastro-esophageal reflux disease without esophagitis
CPT/HCPCS: 36000; 36415; 74176; 80053; 80307; 81001; 82150; 82962; 83690; 84484; 85025; 93005; 93041; 96360; 96374; 96375; 99284; P9612; J2405; J3010

== ENCOUNTER 2020-06-01 15:16 | Emergency (ER) | payer MEDICARE ==
[2020-06-01] MEDS ORDERED: DUONEB 0.5-3 MG/3 ml Neb IH ONE ×2 (16:09→16:27)
[2020-06-01 16:15] LABS: Absolute Neutrophil Ct (ANC) 4.26 (1.4-6.9); BASOPHIL % 0.4 % (0.0-0.4); Basophil (Absolute #) 0.03 (0-0.4); Eosinophil % 3.2 % (0.00-5.0); Eosinophil (Absolute #) 0.22 (0-0.5); Hematocrit 30.4 % (35-47); Hemoglobin 9.8 gm/dl (12.0-16.0); Lymphocyte (Absolute #) 1.67 (1.0-4.6); Lymphocytes % 24.6 % (24.0-44.0); Mean Cell Volume 86.1 fl (78-100); Mean Corpuscular Hemoglobin 27.8 pg (26-32); Mean Corpuscular Hgb Concent. 32.2 g/dl (32-36); Mean Platelet Volume 9.6 fl (7.5-11.0); Monocytes % 8.8 % (0.0-12.0); Platelet Count 170 K/mm3 (150-450); Red Blood Count 3.53 M/mm3 (4.1-5.4); Red Cell Distribution Width 15.5 % (11.5-14.0); White Blood Count 6.8 K/mm3 (4.0-10.5)
--- NOTE | 2020-06-01 16:16 | ERPHSYRPT ---
- History of Present Illness Source: patient Exam Limitations: no limitations Patient Subjective Stated Complaint: pt here for increase sob, and dry cough, nonproductive, no fever, right leg swollen Triage Nursing Assessment: pt alert, arrived per wc, with face mask in place, has left AKA, able to get self out of wc and into bed, resp labored with movement, wheezes heard, lower right leg swollen Physician History: 55 yo wf w cp of dyspnea x2 days. Pt has had mild substernal pressure wo radiation. She has had N wo V/diaphoresis. Pt has a nonproductice cough/coryza wo ST/Fever/melena/hematochezia. Timing/Duration: other (2-3 days) Activities at Onset: rest Severity of Dyspnea-Max: mild Severity of Dyspnea-Current: mild Possible Cause: frequent episodes Modifying Factors: Improves With: activity Associated Symptoms: cough, chest pain/discomfort, No edema, No fever, No loss of appetite, No lightheadedness, No wheezing, No weakness, No ankle swelling, No chills, No hemoptysis, No calf pain, No dizziness, No heaviness, No heart racing, No lightheadedness, No leg swelling, No muscle spasms feet, No muscle spasms hands, No painful breathing, No productive cough, No sweating, No tightness, No tingling face Allergies/Adverse Reactions: adhesive tape Allergy (Mild, Verified 06/01/20 15:31) redness bee stings Allergy (Mild, Uncoded 06/01/20 15:31) Anaphylactic Reaction trouble breathing and swelling. Home Medications: Duloxetine HCl 30 mg [Cymbalta 30 MG Capsule] 30 mg PO BID 11/17/12 [Hi story] Albuterol Sulfate [Proair Hfa] 2 puff IH Q4HPRN PRN 04/21/15 [History] Omeprazole 20 MG [Prilosec 20 mg] 20 mg PO DAILY 04/21/15 [History] Pravastatin Sodium [Pravachol] 10 mg PO HS 02/07/16 [History] Gabapentin [Gralise] 600 mg PO TID 11/11/16 [History] Docusate Sodium 100 mg [Colace 100 MG] 100 mg PO HSPRN PRN 01/18/19 [History] Ergocalciferol (Vitamin D2) [Vitamin D] 50,000 units PO CHEW 01/18/19 [History] Ferrous Sulfate 325 mg PO BID 01/18/19 [History] Hydroxyzine HCl 10 mg PO BID 01/18/19 [History] Levothyroxine Sodium 25 Mcg [Synthroid 25 Mcg] 25 mcg PO DAILY 01/18/19 [ History] Insulin Glargine [Lantus Insulin] 30 units SQ HS 09/27/19 [History] Metoprolol Tartrate 25 mg [Lopressor 25MG Tab] 1 tab PO DAILY 09/27/19 [History] Tiotropium Gipsy [Spiriva Respimat] 1 puff IH DAILY 10/14/19 [History] Furosemide 40 mg [Lasix 40 MG] 40 mg PO BID 10/29/19 [History] Lactulose [Lactulose 20 gm/30Ml Ud Cup] 20 gm PO TID 10/29/19 [History] Insulin Lispro [Humalog Kwikpen U-100] 10 unit SQ TIDWMEALS 03/27/20 [History] Promethazine HCl 25 mg [Phenergan 25 mg] 25 mg PO Q6HPRN PRN 03/27/20 [History] Hydrocodone/Acetaminophen [Hydrocodone-Acetamin 10-325 mg] 1 ea DAILY 06/01/20 [History] Hx Tetanus, Diphtheria Vaccination/Date Given: Yes Hx Influenza Vaccination/Date Given: No Hx Pneumococcal Vaccination/Date Given: Yes Travel Risk - International Travel Have you traveled outside of the country in past 3 weeks: No - Coronavirus Screening Are you exhibiting any of the following symptoms?: No Close contact with a COVID-19 positive Pt in past 14-21 Days: No - Review of Systems Constitutional: No Symptoms Eyes: No Symptoms Ears, Nose, & Throat: No Symptoms Respiratory: Cough, Dyspnea, Dyspnea on Exertion ([place]) Cardiac: Chest Pain Abdominal/Gastrointestinal: Other (Ascites due to ORELLANA) Genitourinary Symptoms: No Symptoms Musculoskeletal: No Symptoms Skin: No Symptoms Neurological: No Symptoms Psychological: No Symptoms Endocrine: No Symptoms Hematologic/Lymphatic: No Symptoms Immunological/Allergic: No Symptoms - Past Medical History Pertinent Past Medical History: Yes Neurological History: No Pertinent History ENT History: No Pertinent History Cardiac History: Hypertension Respiratory History: Asthma, COPD, Pneumonia Endocrine Medical History: Diabetes Type II, Hyperthyroidism Musculoskeletal History: Fractures GI Medical History: GERD, Other History: No Pertinent History Psycho-Social History: Anxiety, Depression Female Reproductive Disorders: No Pertinent History Other Medical History: left ankle fx with mult surgeries, in February 2019 bka,. ascites. fatty liver - Past Surgical History Past Surgical History: Yes Neuro Surgical History: No Pertinent History Cardiac: No Pertinent History Respiratory: No Pertinent History Gastrointestinal: Cholecystectomy, Exploratory Laparoscopy Genitourinary: No Pertinent History Musculoskeletal: Amputation Female Surgical History: Section, Hysterectomy Other Surgical History: foot surgery, screw placed in left big toe, removal, and antibiotic bead placement. mult lt foot surgeries. LT BKA February 2019 - Social History Smoking Status: Current every day smoker How long have you smoked: "35 years" Exposure to second hand smoke: Yes Drug Use: none Patient Lives Alone: No Significant Family History: no pertinent family hx - Female History Hx Last Menstrual Period: post Hx Now: No - Nursing Vital Signs Nursing Vital Signs: Initial Vital Signs Temperature 97.2 F 06/01/20 15:21 Pulse Rate 102 H 06/01/20 15:21 Respiratory Rate 24 06/01/20 15:21 Blood Pressure 164/67 06/01/20 15:21 O2 Sat by Pulse Oximetry 100 06/01/20 15:21 Pain Scale Pain Intensity 0 - Physical Exam General Appearance: no apparent distress Eye Exam: PERRL/EOMI, eyes nml inspection Ears, Nose, Throat Exam: hearing grossly normal, normal ENT inspection, normal pharynx Neck Exam: normal inspection, non-tender, supple, full range of motion, No Brudzinski, No Kernig's, No meningismus Respiratory Exam: airway intact (Wheezes/Rhonchi B) Cardiovascular/Chest Exam: tachycardia (Mild), No murmur Abdominal/Gastrointestinal Exam: soft, distention Neurologic Exam: alert, 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, cooperative, library aide II-XII nml as tested, normal mood/affect, sensation nml, No motor deficits, No sensory deficit Skin Exam: normal color, warm, dry Lymphatic Exam: No adenopathy SpO2 Interpretation: normal SpO2: 100 O2 Delivery: Room Air - Course EKG Interpreted by Me: RATE (Sinus tach/low voltage/Normal QT-QTc) Ordered Tests: Active Orders 24 hr Category Date Time Status CHEST 1 VIEW (PORTABLE) Stat Exams 06/01/20 15:56 Completed BLOOD CULTURE Stat Lab 06/01/20 18:10 Received BMP Stat Lab 06/01/20 18:10 Completed BNP [NT PRO BNP] Stat Lab 06/01/20 16:13 Completed CBC W DIFF Stat Lab 06/01/20 16:13 Completed CMP Stat Lab 06/01/20 16:13 Completed D-DIMER QUANTITATIVE Stat Lab 06/01/20 16:13 Completed PROTIME WITH INR Stat Lab 06/01/20 16:13 Completed PTT Stat Lab 06/01/20 16:13 Completed TROPONIN Q3H Lab 06/01/20 16:13 Completed TROPONIN Q3H Lab 06/01/20 18:10 Completed TROPONIN Q3H Lab 06/01/20 23:00 Completed Respiratory Therapy Assessment DAILY RT 06/01/20 16:32 Completed Medication Summary Discontinued Medications Generic Name Dose Route Start Last Admin Trade Name Freq PRN Reason Stop Dose Admin Albuterol/Ipratropium 3 ml 06/01/20 16:09 06/01/20 16:30 Duoneb 0.5-3 Mg/3 Ml Neb IH 06/01/20 16:10 3 ml STAT ONE Administration Albuterol/Ipratropium Confirm 06/01/20 16:27 Duoneb 0.5-3 Mg/3 Ml Neb Administered 06/01/20 16:28 Dose 3 ml IH .STK-MED ONE Sodium Chloride 1,000 mls @ 999 mls/hr 06/01/20 16:49 06/01/20 18:23 Sodium Chloride 0.9% 1000 Ml IV 06/01/20 17:49 Infused .Q1H1M STA Infusion Sodium Chloride Confirm 06/01/20 16:49 Sodium Chloride 0.9% 1000 Ml Administered 06/01/20 16:50 Dose 1,000 mls @ ud .ROUTE .STK-MED ONE Ceftriaxone Sodium/Dextrose 1 g in 50 mls @ 100 mls/hr 06/01/20 19:13 06/01/20 20:04 Rocephin 1 Gm-D5w 50 Ml Bag IV 06/01/20 19:42 Infused STAT STA Infusion Ceftriaxone Sodium/Dextrose Confirm 06/01/20 19:29 Rocephin 1 Gm-D5w 50 Ml Bag Administered 06/01/20 19:30 Dose 1 g in 50 mls @ ud IV .STK-MED ONE Azithromycin 500 mg in 250 mls @ 250 mls/hr 06/01/20 20:41 06/01/20 21:59 Zithromax 500 Mg/ 250 Ml Nacl Premix IV 06/01/20 21:40 Infused STAT STA Infusion Azithromycin Confirm 06/01/20 20:47 Zithromax 500 Mg/ 250 Ml Nacl Premix Administered 06/01/20 20:48 Dose 500 mg in 250 mls @ ud IV .STK-MED ONE Morphine Sulfate 2 mg 06/01/20 21:00 06/01/20 21:05 Morphine Sulfate 2 Mg Inj IV 06/01/20 21:01 2 mg STAT ONE Administration Morphine Sulfate Confirm 06/01/20 21:04 Morphine Sulfate 2 Mg Inj Administered 06/01/20 21:05 Dose 2 mg .ROUTE .STK-MED ONE Lab/Rad Data: Laboratory Result Diagrams 06/01/20 16:13 06/01/20 18:10 Laboratory Results 06/01/20 06/01/20 06/01/20 Range/Units 23:00 18:10 18:10 WBC (4.0-10.5) K/mm3 RBC (4.1-5.4) M/mm3 Hgb (12.0-16.0) gm/dl Hct (35-47) % MCV (78-100) fl MCH (26-32) pg MCHC (32-36) g/dl RDW (11.5-14.0) % Plt Count (150-450) K/mm3 MPV (7.5-11.0) fl Gran % (36.0-66.0) % Eos # (Auto) (0-0.5) Absolute Lymphs (auto) (1.0-4.6) Absolute Monos (auto) (0.0-1.3) Lymphocytes % (24.0-44.0) % Monocytes % (0.0-12.0) % Eosinophils % (0.00-5.0) % Basophils % (0.0-0.4) % Absolute Granulocytes (1.4-6.9) Basophils # (0-0.4) PT (9.95-12.35) SECONDS INR (0.8-3.0) APTT (25.3-37.0) SECONDS D-Dimer (215-500) ng/mL Sodium 134 L (137-145) mmol/L Potassium 4.8 (3.5-5.1) mmol/L Chloride 106 (98-107) mmol/L Carbon Dioxide 26 (22-30) mmol/L Anion Gap 6.6 (5-15) MEQ/L BUN 12 (7-17) mg/dL Creatinine 1.28 H (0.52-1.04) mg/dL Estimated GFR 46.4 ML/MIN Glucose 78 (74-106) mg/dL Calcium 8.0 L (8.4-10.2) mg/dL Total Bilirubin (0.2-1.3) mg/dL AST (14-36) U/L ALT (0-35) U/L Alkaline Phosphatase (38-126) U/L Troponin I < 0.012 < 0.012 (0.000-0.034) ng/mL NT-Pro-B Natriuret Pep (0-900) pg/mL Serum Total Protein (6.3-8.2) g/dL Albumin (3.5-5.0) g/dL 06/01/20 06/01/20 06/01/20 Range/Units 16:13 16:13 16:13 WBC (4.0-10.5) K/mm3 RBC (4.1-5.4) M/mm3 Hgb (12.0-16.0) gm/dl Hct (35-47) % MCV (78-100) fl MCH (26-32) pg MCHC (32-36) g/dl RDW (11.5-14.0) % Plt Count (150-450) K/mm3 MPV (7.5-11.0) fl Gran % (36.0-66.0) % Eos # (Auto) (0-0.5) Absolute Lymphs (auto) (1.0-4.6) Absolute Monos (auto) (0.0-1.3) Lymphocytes % (24.0-44.0) % Monocytes % (0.0-12.0) % Eosinophils % (0.00-5.0) % Basophils % (0.0-0.4) % Absolute Granulocytes (1.4-6.9) Basophils # (0-0.4) PT 14.5 H (9.95-12.35) SECONDS INR 1.28 (0.8-3.0) APTT 32.8 (25.3-37.0) SECONDS D-Dimer 2986 H* (215-500) ng/mL Sodium (137-145) mmol/L Potassium (3.5-5.1) mmol/L Chloride (98-107) mmol/L Carbon Dioxide (22-30) mmol/L Anion Gap (5-15) MEQ/L BUN (7-17) mg/dL Creatinine (0.52-1.04) mg/dL Estimated GFR ML/MIN Glucose (74-106) mg/dL Calcium (8.4-10.2) mg/dL Total Bilirubin (0.2-1.3) mg/dL AST (14-36) U/L ALT (0-35) U/L Alkaline Phosphatase (38-126) U/L Troponin I < 0.012 (0.000-0.034) ng/mL NT-Pro-B Natriuret Pep 424 (0-900) pg/mL Serum Total Protein (6.3-8.2) g/dL Albumin (3.5-5.0) g/dL 06/01/20 06/01/20 Range/Units 16:13 16:13 WBC 6.8 (4.0-10.5) K/mm3 RBC 3.53 L (4.1-5.4) M/mm3 Hgb 9.8 L (12.0-16.0) gm/dl Hct 30.4 L (35-47) % MCV 86.1 (78-100) fl MCH 27.8 (26-32) pg MCHC 32.2 (32-36) g/dl RDW 15.5 H (11.5-14.0) % Plt Count 170 (150-450) K/mm3 MPV 9.6 (7.5-11.0) fl Gran % 63.0 (36.0-66.0) % Eos # (Auto) 0.22 (0-0.5) Absolute Lymphs (auto) 1.67 (1.0-4.6) Absolute Monos (auto) 0.60 (0.0-1.3) Lymphocytes % 24.6 (24.0-44.0) % Monocytes % 8.8 (0.0-12.0) % Eosinophils % 3.2 (0.00-5.0) % Basophils % 0.4 (0.0-0.4) % Absolute Granulocytes 4.26 (1.4-6.9) Basophils # 0.03 (0-0.4) PT (9.95-12.35) SECONDS INR (0.8-3.0) APTT (25.3-37.0) SECONDS D-Dimer (215-500) ng/mL Sodium 133 L (137-145) mmol/L Potassium 4.7 (3.5-5.1) mmol/L Chloride 105 (98-107) mmol/L Carbon Dioxide 24 (22-30) mmol/L Anion Gap 8.6 (5-15) MEQ/L BUN 11 (7-17) mg/dL Creatinine 1.31 H (0.52-1.04) mg/dL Estimated GFR 45.1 ML/MIN Glucose 89 (74-106) mg/dL Calcium 8.3 L (8.4-10.2) mg/dL Total Bilirubin 0.20 (0.2-1.3) mg/dL AST 19 (14-36) U/L ALT 8 (0-35) U/L Alkaline Phosphatase 165 H (38-126) U/L Troponin I (0.000-0.034) ng/mL NT-Pro-B Natriuret Pep (0-900) pg/mL Serum Total Protein 6.7 (6.3-8.2) g/dL Albumin 2.9 L (3.5-5.0) g/dL - Progress Progress: improved Air Movement: fair, good Progress Note: 06/01/20 18:40 GFR too low for CTA of chest. 1L NS bolus but GFR less than 50. Spoke w Dr. Kiser, wants to ship to [place] since GFR too low for CTA of chest at this facility. 06/01/20 19:[address] Irizarry at [facility]. No beds available at [facility]. 06/02/20 00:57 Pt given 1gm IV Rocephin/500mg IV Zithromax Pt stable throughout stay w good sats 06/02/20 00:58 Discussed with : Beka Counseled pt/family regarding: lab results, diagnosis, rad results - Departure Departure Disposition: Transfer Clinical Impression: Pneumonia, D-dimer, elevated Condition: Stable Critical Care Time: No Referrals: SARAH AMIN DO [Primary Care Provider] -
[2020-06-01 16:23] LABS: INR 1.28 (0.8-3.0); PROTIME 14.5 SECONDS (9.95-12.35)
[2020-06-01 16:25] LABS: PTT 32.8 SECONDS (25.3-37.0)
--- NOTE | 2020-06-01 16:29 | XRAY ---
Indication: Short of breath. Dyspnea. Chronic ascites. Comparison: March 27, 2020. Portable chest again demonstrates right base infiltrate/atelectasis. Remaining heart, left lung, and bony thorax unremarkable.
[2020-06-01 16:34] LABS: ALBUMIN 2.9 g/dL (3.5-5.0); ANION GAP 8.6 MEQ/L (5-15); BILIRUBIN,TOTAL 0.2 mg/dL (0.2-1.3); Calcium 8.3 mg/dL (8.4-10.2); Creatinine 1 1.31 mg/dL (0.52-1.04); EST GLOMERULAR FILTRATION RATE 45.1 ML/MIN; Potassium 4.7 mmol/L (3.5-5.1); Total Protein 6.7 g/dL (6.3-8.2)
[2020-06-01] MEDS ORDERED: Sodium Chloride 0.9% 1000 ML 1,000 ML IV STA (16:49)
[2020-06-01] MEDS ORDERED: Sodium Chloride 0.9% 1000 ML 1,000 ML ONE (16:49)
[2020-06-01 18:28] LABS: ANION GAP 6.6 MEQ/L (5-15); Creatinine 1 1.28 mg/dL (0.52-1.04); EST GLOMERULAR FILTRATION RATE 46.4 ML/MIN; Potassium 4.8 mmol/L (3.5-5.1)
[2020-06-01] MEDS ORDERED: ROCEPHIN 1 Gm-D5w 50 ml Bag** 1 G/50 ML IVPB IV STA (19:13)
[2020-06-01] MEDS ORDERED: ROCEPHIN 1 Gm-D5w 50 ml Bag** 1 G/50 ML IVPB IV ONE (19:29)
[2020-06-01] MEDS ORDERED: Zithromax 500 MG/ 250 ML NaCl Premix 500 MG/250 ML IVPB IV STA (20:41)
[2020-06-01] MEDS ORDERED: Zithromax 500 MG/ 250 ML NaCl Premix 500 MG/250 ML IVPB IV ONE (20:47)
[2020-06-01] MEDS ORDERED: MORPHINE SULFATE 2 MG INJ IV ONE (21:00)
[2020-06-01] MEDS ORDERED: MORPHINE SULFATE 2 MG INJ ONE (21:04)
[2020-06-02 01:00] VITALS: O2SAT 100
[2020-06-02 01:18] VITALS: BP 126/61; PULSE 86
== END 2020-06-02 01:15 | disposition short-term general hospital (02) ==
LOC: ED 15:16
DX: J18.9 Pneumonia, unspecified organism (principal); R06.02 Shortness of breath; R79.89 Other specified abnormal findings of blood chemistry
CPT/HCPCS: 36415; 71045; 80048; 80053; 83880; 84484; 85025; 85379; 85610; 85730; 87040; 94640; 96360; 96365; 96367; 96374; 99285; J0456; J0696; J2270; A9270-GY

== ENCOUNTER 2020-06-21 18:05 | Observation (INO) | payer MEDICARE ==
[~2020-06-21 18:05] MED LIST: ATARAX 25 MG PO SCH; LACTULOSE 20 GM/30ML UD CUP PO SCH; Norco 10/325 MG Tablet PO SCH
--- NOTE | 2020-06-21 18:39 | ERPHSYRPT ---
- History of Present Illness Source: patient Exam Limitations: no limitations Timing/Duration: day(s) (2-3 days) Associated Symptoms: shortness of breath, cough, rash (on right leg), No nausea, No vomiting, No abdominal pain, No chills, No chest pain, No fever Hx Tetanus, Diphtheria Vaccination/Date Given: Yes Hx Influenza Vaccination/Date Given: No Hx Pneumococcal Vaccination/Date Given: Yes <GENE LORENZ - Last Filed: 06/21/20 18:58> <BILL LUNA - Last Filed: 06/21/20 20:13> - History of Present Illness Time Seen by Provider: 06/21/20 18:35 Physician History: 55-year-old female with significant past medical history of type 2 diabetes mellitus s/p left below knee amputation history of pulmonary embolism abdominal ascites due to liver cirrhosis came with complaining of right lower extremity swelling and edema with some redness below the knee. Patient denies any fever chills nausea vomiting or diarrhea. Patient is getting abdominal ascites tapping every 3 weeks. Patient is also complaining of some shortness of breath and cough. (KELECHI,GENE) Allergies/Adverse Reactions: adhesive tape Allergy (Mild, Verified 06/21/20 18:37) redness bee stings Allergy (Mild, Uncoded 06/21/20 18:37) Anaphylactic Reaction trouble breathing and swelling. Home Medications: Duloxetine HCl 30 mg [Cymbalta 30 MG Capsule] 30 mg PO BID 11/17/12 [History] Albuterol Sulfate [Proair Hfa] 2 puff IH Q4HPRN PRN 04/21/15 [History] Omeprazole 20 MG [Prilosec 20 mg] 20 mg PO DAILY 04/21/15 [History] Pravastatin Sodium [Pravachol] 10 mg PO HS 02/07/16 [History] Gabapentin [Gralise] 600 mg PO TID 11/11/16 [History] Docusate Sodium 100 mg [Colace 100 MG] 100 mg PO HSPRN PRN 01/18/19 [History] Ergocalciferol (Vitamin D2) [Vitamin D] 50,000 units PO CHEW 01/18/19 [History] Ferrous Sulfate 325 mg PO BID 01/18/19 [History] Hydroxyzine HCl 10 mg PO BID 01/18/19 [History] Levothyroxine Sodium 25 Mcg [Synthroid 25 Mcg] 25 mcg PO DAILY 01/18/19 [History] Insulin Glargine [Lantus Insulin] 30 units SQ HS 09/27/19 [History] Metoprolol Tartrate 25 mg [Lopressor 25MG Tab] 1 tab PO DAILY 09/27/19 [History] Tiotropium [place] [Spiriva Respimat] 1 puff IH DAILY 10/14/19 [History] Furosemide 40 mg [Lasix 40 MG] 40 mg PO BID 10/29/19 [History] Lactulose [Lactulose 20 gm/30Ml Ud Cup] 20 gm PO TID 10/29/19 [History] Insulin Lispro [Humalog Kwikpen U-100] 10 unit SQ TIDWMEALS 03/27/20 [History] Promethazine HCl 25 mg [Phenergan 25 mg] 25 mg PO Q6HPRN PRN 03/27/20 [History] Hydrocodone/Acetaminophen [Hydrocodone-Acetamin 10-325 mg] 1 ea DAILY 06/01/20 [History] Apixaban [Eliquis] 5 mg PO DAILY 06/21/20 [History] Nicotine 14 mg [Nicoderm Cq 14 mg] 14 mg TD Q24H 06/21/20 [History] - Review of Systems Constitutional: Weakness, No Fever, No Chills Eyes: No Symptoms Ears, Nose, & Throat: No Symptoms Respiratory: Cough, Dyspnea on Exertion ([place]), No Dyspnea Cardiac: No Chest Pain, No Edema, No Syncope Abdominal/Gastrointestinal: Other (abdominal distension), No Abdominal Pain, No Nausea, No Vomiting, No Diarrhea Genitourinary Symptoms: No Dysuria Musculoskeletal: No Back Pain, No Neck Pain Skin: Cellulitis (right leg), No Rash Neurological: No Dizziness, No Focal Weakness, No Sensory Changes Psychological: No Symptoms Endocrine: No Symptoms All Other Systems: Reviewed and Negative <KELECHI,GENE - Last Filed: 06/21/20 18:58> - Past Medical History Pertinent Past Medical History: Yes Neurological History: No Pertinent History ENT History: No Pertinent History Cardiac History: Hypertension Respiratory History: Asthma, COPD, Pneumonia, Pulmonary Embolism Endocrine Medical History: Diabetes Type II, Hyperthyroidism, Hypoglycemia Musculoskeletal History: Fractures GI Medical History: GERD, Other History: No Pertinent History Psycho-Social History: Anxiety, Depression Female Reproductive Disorders: No Pertinent History Other Medical History: left ankle fx with mult surgeries, in February 2019 bka,. ascites. fatty liver - Past Surgical History Past Surgical History: Yes Neuro Surgical History: No Pertinent History Cardiac: No Pertinent History Respiratory: No Pertinent History Gastrointestinal: Cholecystectomy, Exploratory Laparoscopy Genitourinary: No Pertinent History Musculoskeletal: Amputation Female Surgical History: Section, Hysterectomy Other Surgical History: foot surgery, screw placed in left big toe, removal, and antibiotic bead placement. mult lt foot surgeries. LT BKA February 2019 - Social History Smoking Status: Current every day smoker How long have you smoked: "35 years" Exposure to second hand smoke: Yes Drug Use: none Patient Lives Alone: No Significant Family History: no pertinent family hx <KELECHI,GENE - Last Filed: 06/21/20 18:58> - Physical Exam General Appearance: mild distress, alert Eye Exam: PERRL/EOMI, eyes nml inspection Ears, Nose, Throat Exam: normal ENT inspection, TMs normal, pharynx normal, moist mucous membranes Neck Exam: normal inspection, non-tender, supple, full range of motion Respiratory Exam: diminished breath sounds, crackles/rales, rhonchi, wheezing, No respiratory distress Cardiovascular Exam: regular rate/rhythm, normal heart sounds, normal peripheral pulses Gastrointestinal/Abdomen Exam: soft, distention, No tenderness, No mass Back Exam: normal inspection, normal range of motion, No CVA tenderness, No vertebral tenderness Extremity Exam: normal inspection, normal range of motion, pelvis stable, inflammation, swelling, No dipak's sign, No joint swelling, No limited range of motion, No tenderness Neurologic Exam: alert, 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, cooperative, normal mood/affect, nml station & gait, sensation nml, No motor deficits Skin Exam: normal color, warm, dry, No rash Lymphatic Exam: No adenopathy <KELECHI,GENE - Last Filed: 06/21/20 18:58> - Nursing Vital Signs Nursing Vital Signs: Initial Vital Signs Temperature 97.1 F 06/21/20 18:16 Pulse Rate 108 H 06/21/20 18:16 Respiratory Rate 20 06/21/20 18:16 Blood Pressure 144/86 06/21/20 18:16 O2 Sat by Pulse Oximetry 97 06/21/20 18:16 Pain Scale Pain Intensity 0 - Course Nursing assessment & vital signs reviewed: Yes - Radiology Exams Chest X-ray Interpretation: Reviewed by me <GENE LORENZ - Last Filed: 06/21/20 18:58> Ordered Tests: Active Orders 24 hr Category Date Time Status Auto Headlight Mechanic STAT Care 06/21/20 18:47 Active Code Status Order ROUTINE Care 06/21/20 20:02 Ordered EKG-ER Only STAT Care 06/21/20 18:47 Active [place] [Catheter-Piggott Youngblood] STAT Care 06/21/20 19:24 Active IV Care Q6H Care 06/21/20 20:02 Ordered IV Insertion STAT Care 06/21/20 18:24 Active POCT Glucose Check STAT Care 06/21/20 18:[address] in Observation ROUTINE Care 06/21/20 20:02 Ordered Heart-Healthy Diet Diet 06/21/20 Breakfast Ordered CHEST 1 VIEW (PORTABLE) Stat Exams 06/21/20 18:48 Taken BLOOD CULTURE Stat Lab 06/21/20 18:49 Received CBC W DIFF AM.LAB Lab 06/22/20 04:00 Ordered CBC W DIFF Stat Lab 06/21/20 18:49 Completed CMP AM.LAB Lab 06/22/20 04:00 Ordered CMP Stat Lab 06/21/20 18:49 Completed CULTURE,URINE Stat Lab 06/21/20 19:32 Received Lactic Acid AM.LAB Lab 06/22/20 04:00 Ordered Lactic Acid Stat Lab 06/21/20 18:35 Completed POCT GLUCOSE Stat Lab 06/21/20 18:33 Completed UA W/RFX UR CULTURE Stat Lab 06/21/20 19:32 Completed Medication Summary Generic Name Dose Route Start Last Admin Trade Name Freq PRN Reason Stop Dose Admin Sodium Chloride 1,000 mls @ 100 mls/hr 06/21/20 18:30 06/21/20 18:43 Sodium Chloride 0.9% 1000 Ml IV 07/21/20 18:29 100 mls/hr .Q10H TISHA Administration Clindamycin HCl/Dextrose 600 mg in 50 mls @ 100 mls/hr 06/21/20 19:58 Clindamycin-D5w 600 Mg/50 Ml IV 06/21/20 20:27 STAT STA Lab/Rad Data: Laboratory Result Diagrams 06/21/20 18:49 06/21/20 18:49 Laboratory Results 06/21/20 06/21/20 06/21/20 Range/Units 19:32 18:49 18:49 WBC 9.8 (4.0-10.5) K/mm3 RBC 3.74 L (4.1-5.4) M/mm3 Hgb 10.5 L (12.0-16.0) gm/dl Hct 33.2 L (35-47) % MCV 88.8 (78-100) fl MCH 28.1 (26-32) pg MCHC 31.6 L (32-36) g/dl RDW 16.5 H (11.5-14.0) % Plt Count 145 L (150-450) K/mm3 MPV 10.2 (7.5-11.0) fl Gran % 72.8 H (36.0-66.0) % Eos # (Auto) 0.29 (0-0.5) Absolute Lymphs (auto) 1.62 (1.0-4.6) Absolute Monos (auto) 0.74 (0.0-1.3) Lymphocytes % 16.5 L (24.0-44.0) % Monocytes % 7.5 (0.0-12.0) % Eosinophils % 3.0 (0.00-5.0) % Basophils % 0.2 (0.0-0.4) % Absolute Granulocytes 7.14 H (1.4-6.9) Basophils # 0.02 (0-0.4) Sodium 130 L (137-145) mmol/L Potassium 5.2 H (3.5-5.1) mmol/L Chloride 101 (98-107) mmol/L Carbon Dioxide 28 (22-30) mmol/L Anion Gap 6.8 (5-15) MEQ/L BUN 42 H (7-17) mg/dL Creatinine 1.48 H (0.52-1.04) mg/dL Estimated GFR 39.2 ML/MIN Glucose 104 (74-106) mg/dL POC Glucometer (74 to 106) mg/dL Lactic Acid (0.4-2.0) Calcium 8.6 (8.4-10.2) mg/dL Total Bilirubin 0.60 (0.2-1.3) mg/dL AST 28 (14-36) U/L ALT 24 (0-35) U/L Alkaline Phosphatase 196 H (38-126) U/L Serum Total Protein 6.4 (6.3-8.2) g/dL Albumin 2.8 L (3.5-5.0) g/dL Urine Color YELLOW (YELLOW) Urine Appearance CLEAR (CLEAR) Urine pH 6.0 (5-6) Ur Specific [place] 1.006 (1.005-1.025) Urine Protein NEGATIVE (Negative) Urine Ketones NEGATIVE (NEGATIVE) Urine Blood NEGATIVE (0-5) Ubaldo/ul Urine Nitrite NEGATIVE (NEGATIVE) Urine Bilirubin NEGATIVE (NEGATIVE) Urine Urobilinogen NEGATIVE (0-1) mg/dL Ur Leukocyte Esterase NEGATIVE (NEGATIVE) Urine WBC (Auto) NONE (0-5) /HPF Urine RBC (Auto) NONE (0-2) /HPF U Epithel Cells (Auto) RARE (FEW) /HPF Urine Bacteria (Auto) NONE SEEN (NEGATIVE) /HPF Urine Culture Reflexed ORDERED SEPARATELY (NO) Urine Glucose NEGATIVE (NEGATIVE) mg/dL 06/21/20 06/21/20 Range/Units 18:35 18:33 WBC (4.0-10.5) K/mm3 RBC (4.1-5.4) M/mm3 Hgb (12.0-16.0) gm/dl Hct (35-47) % MCV (78-100) fl MCH (26-32) pg MCHC (32-36) g/dl RDW (11.5-14.0) % Plt Count (150-450) K/mm3 MPV (7.5-11.0) fl Gran % (36.0-66.0) % Eos # (Auto) (0-0.5) Absolute Lymphs (auto) (1.0-4.6) Absolute Monos (auto) (0.0-1.3) Lymphocytes % (24.0-44.0) % Monocytes % (0.0-12.0) % Eosinophils % (0.00-5.0) % Basophils % (0.0-0.4) % Absolute Granulocytes (1.4-6.9) Basophils # (0-0.4) Sodium (137-145) mmol/L Potassium (3.5-5.1) mmol/L Chloride (98-107) mmol/L Carbon Dioxide (22-30) mmol/L Anion Gap (5-15) MEQ/L BUN (7-17) mg/dL Creatinine (0.52-1.04) mg/dL Estimated GFR ML/MIN Glucose (74-106) mg/dL POC Glucometer 137 H (74 to 106) mg/dL Lactic Acid 1.3 (0.4-2.0) Calcium (8.4-10.2) mg/dL Total Bilirubin (0.2-1.3) mg/dL AST (14-36) U/L ALT (0-35) U/L Alkaline Phosphatase (38-126) U/L Serum Total Protein (6.3-8.2) g/dL Albumin (3.5-5.0) g/dL Urine Color (YELLOW) Urine Appearance (CLEAR) Urine pH (5-6) Ur Specific [place] (1.005-1.025) Urine Protein (Negative) Urine Ketones (NEGATIVE) Urine Blood (0-5) Ubaldo/ul Urine Nitrite (NEGATIVE) Urine Bilirubin (NEGATIVE) Urine Urobilinogen (0-1) mg/dL Ur Leukocyte Esterase (NEGATIVE) Urine WBC (Auto) (0-5) /HPF Urine RBC (Auto) (0-2) /HPF U Epithel Cells (Auto) (FEW) /HPF Urine Bacteria (Auto) (NEGATIVE) /HPF Urine Culture Reflexed (NO) Urine Glucose (NEGATIVE) mg/dL - Progress Progress: improved Discussed with : Italo Will see patient in: hospital (observation) Counseled pt/family regarding: drug and/or alcohol abuse, lab results, diagnosis <BILL LUNA - Last Filed: 06/21/20 20:13> - Progress Progress Note: 06/21/20 20:05 I took over patient from Dr. Pacheco. Patient is a uncontrolled diabetic with a right lower leg cellulitis today. She also states that she has some confusion and pain in her right leg. She states that she has missed no doses of her anticoagulation. On my exam the patient does have right lower leg redness, tenderness. I do believe patient would benefit from admission to the hospital for IV antibiotics. Patient's creatinine is 1.48. Patient also has known ascites and gets her ascites drained here. I discussed over the phone with the on-call physician, Dr. Martha Clemente. The decision to bring in the patient overnight. We will start basic fluids, clindamycin, close monitoring. (BILL LUNA) <GENE LORENZ - Last Filed: 06/21/20 18:58> - Departure Departure Disposition: Observation Critical Care Time: No <BILL LUNA - Last Filed: 06/21/20 20:13> - Departure Clinical Impression: Cellulitis Condition: Stable Referrals: SARAH AMIN DO [Primary Care Provider] -
[2020-06-21] MEDS: Sodium Chloride 0.9% 1000 ML 1,000 ML IV SCH (18:43)
[2020-06-21 18:49] LABS: Absolute Neutrophil Ct (ANC) 7.14 (1.4-6.9); BASOPHIL % 0.2 % (0.0-0.4); Basophil (Absolute #) 0.02 (0-0.4); Eosinophil (Absolute #) 0.29 (0-0.5); Hematocrit 33.2 % (35-47); Hemoglobin 10.5 gm/dl (12.0-16.0); Lymphocyte (Absolute #) 1.62 (1.0-4.6); Lymphocytes % 16.5 % (24.0-44.0); Mean Cell Volume 88.8 fl (78-100); Mean Corpuscular Hemoglobin 28.1 pg (26-32); Mean Corpuscular Hgb Concent. 31.6 g/dl (32-36); Mean Platelet Volume 10.2 fl (7.5-11.0); Monocyte (Absolute #) 0.74 (0.0-1.3); Monocytes % 7.5 % (0.0-12.0); Neutrophil % 72.8 % (36.0-66.0); Platelet Count 145 K/mm3 (150-450); Red Blood Count 3.74 M/mm3 (4.1-5.4); Red Cell Distribution Width 16.5 % (11.5-14.0); White Blood Count 9.8 K/mm3 (4.0-10.5)
[2020-06-21 19:35] LABS: ALBUMIN 2.8 g/dL (3.5-5.0); ANION GAP 6.8 MEQ/L (5-15); BILIRUBIN,TOTAL 0.6 mg/dL (0.2-1.3); Calcium 8.6 mg/dL (8.4-10.2); Creatinine 1 1.48 mg/dL (0.52-1.04); EST GLOMERULAR FILTRATION RATE 39.2 ML/MIN; Potassium 5.2 mmol/L (3.5-5.1); Total Protein 6.4 g/dL (6.3-8.2)
[2020-06-21 19:54] LABS: Appearance CLEAR (CLEAR); Bacteria NONE SEEN /HPF (NEGATIVE); Bilirubin NEGATIVE (NEGATIVE); Blood NEGATIVE Ery/ul (0-5); Epithelial Cells RARE /HPF (FEW); Glucose NEGATIVE (NEGATIVE); Ketones NEGATIVE (NEGATIVE); Leukocyte Esterase NEGATIVE (NEGATIVE); Nitrite NEGATIVE (NEGATIVE); Protein,Urine Dip NEGATIVE (Negative); Specific Gravity 1.006 (1.005-1.025); Urobilinogen NEGATIVE mg/dL (0-1)
[2020-06-21] MEDS ORDERED: CLINDAMYCIN-D5W 600 MG/50 ML*** 600 MG/50 ML BAG IV STA (19:58)
[2020-06-21] MEDS ORDERED: Zofran 4 MG/2 ML VIAL IV PRN (20:02)
[2020-06-21] MEDS ORDERED: CLINDAMYCIN-D5W 600 MG/50 ML*** 600 MG/50 ML BAG IV ONE (20:05)
[2020-06-21] MEDS ORDERED: Sodium Chloride 0.9% 1000 ML 1,000 ML IV SCH (20:15)
[2020-06-21] MEDS ORDERED: PROVENTIL 2.5 MG/3 ML NEB IH PRN (20:47)
[2020-06-21] MEDS ORDERED: PROVENTIL 2.5 MG/3 ML NEB IH ONE (20:48)
[2020-06-21] MEDS ORDERED: Lantus Insulin SQ SCH (22:00)
[2020-06-21] MEDS ORDERED: Zocor 10MG PO SCH (22:00)
[2020-06-21] MEDS ORDERED: NICODERM CQ 14 MG TOP SCH (22:30)
[2020-06-21] MEDS ORDERED: Norco 10/325 MG Tablet PO SCH (22:34)
[2020-06-21] MEDS ORDERED: ATARAX 25 MG PO SCH (22:34)
[2020-06-21] MEDS ORDERED: Cymbalta 30 MG Capsule ONE (22:39)
[2020-06-21] MEDS: Cymbalta 30 MG Capsule PO SCH (22:51)
[2020-06-21] MEDS: LACTULOSE 20 GM/30ML UD CUP PO SCH (22:51)
[2020-06-21] MEDS: Neurontin 400 MG PO SCH (22:51)
[2020-06-22] MEDS: CLINDAMYCIN-D5W 600 MG/50 ML*** 600 MG/50 ML BAG IV SCH ×2 (04:38→05:36)
[2020-06-22] MEDS: Sodium Chloride 0.9% 1000 ML 1,000 ML IV SCH (04:43)
[2020-06-22 06:01] LABS: Absolute Neutrophil Ct (ANC) 4.75 (1.4-6.9); BASOPHIL % 0.2 % (0.0-0.4); Basophil (Absolute #) 0.01 (0-0.4); Eosinophil % 1.8 % (0.00-5.0); Eosinophil (Absolute #) 0.12 (0-0.5); Hematocrit 29.8 % (35-47); Hemoglobin 9.2 gm/dl (12.0-16.0); Lymphocytes % 18.4 % (24.0-44.0); Mean Corpuscular Hemoglobin 27.8 pg (26-32); Mean Corpuscular Hgb Concent. 30.9 g/dl (32-36); Mean Platelet Volume 9.5 fl (7.5-11.0); Monocyte (Absolute #) 0.43 (0.0-1.3); Monocytes % 6.6 % (0.0-12.0); Platelet Count 121 K/mm3 (150-450); Red Blood Count 3.31 M/mm3 (4.1-5.4); Red Cell Distribution Width 16.1 % (11.5-14.0); White Blood Count 6.5 K/mm3 (4.0-10.5)
[2020-06-22 06:11] LABS: ALBUMIN 2.7 g/dL (3.5-5.0); ANION GAP 6.6 MEQ/L (5-15); BILIRUBIN,TOTAL 0.5 mg/dL (0.2-1.3); Calcium 8.4 mg/dL (8.4-10.2); Creatinine 1 1.48 mg/dL (0.52-1.04); EST GLOMERULAR FILTRATION RATE 39.2 ML/MIN; Potassium 5.7 mmol/L (3.5-5.1); Total Protein 6.1 g/dL (6.3-8.2)
[2020-06-22] MEDS: PROVENTIL 2.5 MG/3 ML NEB IH SCH ×4 (06:55→19:02)
--- NOTE | 2020-06-22 08:51 | XRAY ---
Indication: Cough and short of breath. Comparison: June 01, 2020. Portable chest unchanged again demonstrating diffuse bilateral interstitial opacities and focal right base infiltrate/atelectasis. Remaining heart, lungs, and bony thorax unremarkable.
[2020-06-22] MEDS: Cymbalta 30 MG Capsule PO SCH (09:59)
[2020-06-22] MEDS: Neurontin 400 MG PO SCH ×2 (09:59→14:26)
[2020-06-22] MEDS ORDERED: ATARAX 25 MG PO SCH (10:00)
[2020-06-22] MEDS: LACTULOSE 20 GM/30ML UD CUP PO SCH ×2 (10:01→14:26)
[2020-06-22] MEDS ORDERED: CLINDAMYCIN-D5W 600 MG/50 ML*** 600 MG/50 ML BAG IV SCH (14:00)
[2020-06-22] MEDS ORDERED: HUMALOG SQ PRN (15:30)
[2020-06-22] MEDS ORDERED: PHENERGAN 25 MG PO PRN (17:02)
[2020-06-22] MEDS ORDERED: Colace 100 MG PO PRN (17:02)
[2020-06-22] MEDS ORDERED: ZOFRAN ODT 4 MG PO PRN (17:02)
[2020-06-22] MEDS ORDERED: Zestril 5 MG PO SCH (17:15)
[2020-06-22] MEDS ORDERED: Protonix 40MG Tablet PO SCH (17:15)
[2020-06-22] MEDS ORDERED: Norco 10/325 MG Tablet PO PRN (17:18)
--- NOTE | 2020-06-22 18:05 | PCM.SSS ---
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 Patient presented to ER with swelling in her leg and stump and was admitted for cellulitis and started on IV Clindamycin. - Review of Systems Constitutional: Other (denies fever or chills) Eyes: No Symptoms Ears, Nose, & Throat: No Symptoms Respiratory: Wheezing (chronic) Cardiac: Edema, Other (tachycardia) Abdominal/Gastrointestinal: Other (swelling/ascites [facility] tap [facility] about 10 days ago) Genitourinary Symptoms: No Symptoms Skin: Other (redness and itching leg and stump since hospitalized) Neurological: No Symptoms Psychological: Anxiety Endocrine: Other (IDDM) Hematologic/Lymphatic: Anemia Medications & Allergies Home Medications: Home Medication List Duloxetine HCl 30 mg [Cymbalta 30 MG Capsule] 30 mg PO BID 11/17/12 [History Confirmed 06/21/20] Albuterol Sulfate [Proair Hfa] 2 puff IH Q4HPRN PRN 04/21/15 [History Confirmed 06/21/20] Omeprazole 20 MG [Prilosec 20 mg] 20 mg PO DAILY 04/21/15 [History Confirmed 06/21/20] Pravastatin Sodium [Pravachol] 10 mg PO HS 02/07/16 [History Confirmed 06/21/20] Gabapentin [Gralise] 400 mg PO TID 11/11/16 [History Confirmed 06/22/20] Docusate Sodium 100 mg [Colace 100 MG] 100 mg PO HSPRN PRN 01/18/19 [History Confirmed 06/21/20] Ergocalciferol (Vitamin D2) [Vitamin D] 50,000 units PO CHEW 01/18/19 [History Confirmed 06/21/20] Ferrous Sulfate 325 mg PO BID 01/18/19 [History Confirmed 06/21/20] Hydroxyzine HCl 10 mg PO BID 01/18/19 [History Confirmed 06/21/20] Levothyroxine Sodium 25 Mcg [Synthroid 25 Mcg] 25 mcg PO DAILY 01/18/19 [History Confirmed 06/21/20] Lisinopril 5 mg [Zestril 5 MG] 5 mg PO DAILY #90 tablet 01/21/19 [Rx Confirmed 06/21/20] Ondansetron ODT 4 MG [Zofran Odt 4 mg] 4 mg PO Q6H PRN PRN #10 tab.rapdis 07/11/19 [Rx Confirmed 06/21/20] Insulin Glargine [Lantus Insulin] 30 units SQ HS 09/27/19 [History Confirmed 06/21/20] Metoprolol Tartrate 25 mg [Lopressor 25MG Tab] 1 tab PO DAILY 09/27/19 [History Confirmed 06/21/20] Tiotropium [place] [Spiriva Respimat] 1 puff IH DAILY 10/14/19 [History Confirmed 06/21/20] Furosemide 40 mg [Lasix 40 MG] 40 mg PO BID 10/29/19 [History Confirmed 06/21/20] Lactulose [Lactulose 20 gm/30Ml Ud Cup] 20 gm PO TID 10/29/19 [History Confirmed 06/21/20] Insulin Lispro [Humalog Kwikpen U-100] 10 unit SQ TIDWMEALS 03/27/20 [History Confirmed 06/21/20] Promethazine HCl 25 mg [Phenergan 25 mg] 25 mg PO Q6HPRN PRN 03/27/20 [History Confirmed 06/21/20] Hydrocodone/Acetaminophen [Hydrocodone-Acetamin 10-325 mg] 1 ea BID 06/01/20 [History Confirmed 06/22/20] Apixaban [Eliquis] 5 mg PO DAILY 06/21/20 [History Confirmed 06/21/20] Nicotine 14 mg [Nicoderm Cq 14 mg] 14 mg TD Q24H 06/21/20 [History Confirmed 06/21/20] Allergies/Adverse Reactions: Allergies Allergy/AdvReac Type Severity Reaction Status Date / Time adhesive tape Allergy Mild Verified 06/21/20 18:37 bee stings Allergy Mild Anaphylactic Uncoded 06/21/20 18:37 Reaction - Past Medical History Past Medical History: Yes Neurological History: No Pertinent History ENT History: No Pertinent History Cardiac History: Hypertension Respiratory History: Asthma, COPD, Pneumonia, Pulmonary Embolism Endocrine Medical History: Diabetes Type II, Hypoglycemia, Hypothyroidism Musculoskelatal History: Fractures GI Medical History: GERD, Other History: Renal Disease Pyscho-Social History: Anxiety, Depression Reproductive Disorders: No Pertinent History Comment: left ankle fx with mult surgeries, in February 2019 bka,. ascites. fatty liver - Female History Are you now?: No - Past Surgical History Past Surgical History: Yes Neuro Surgical History: No Pertinent History Cardiac History: No Pertinent History Respiratory Surgery: No Pertinent History GI Surgical History: Cholecystectomy, Exploratory Laparoscopy Genitourinary Surgical Hx: No Pertinent History Musculskeletal Surgical Hx: Amputation Female Surgical History: Section, Hysterectomy Other Surgical History: foot surgery, screw placed in left big toe, removal, and antibiotic bead placement. mult lt foot surgeries. LT BKA February 2019 - Social History Smoking Status: Current every day smoker How long have you smoked: "35 years" Exposure to second hand smoke: No Alcohol: None Drug Use: none Significant Family History: no pertinent family hx - Physical Exam Vital Signs: Vital Signs - 24 hr Temp Pulse Resp BP Pulse Ox 06/22/20 16:00 98.6 F 115 H 16 112/61 99 06/22/20 14:55 113 H 18 92 L 06/22/20 11:44 99.3 F 107 H 18 140/69 97 06/22/20 10:59 104 H 20 98 06/22/20 07:14 98.2 F 89 16 137/66 100 06/22/20 06:56 92 H 18 99 06/22/20 04:00 97.5 F 90 17 120/67 100 06/21/20 21:14 97 H 20 96 06/21/20 21:08 97.5 F 96 H 22 139/68 97 06/21/20 20:24 99 H 18 131/77 97 06/21/20 19:58 102 H 20 109/69 98 06/21/20 18:16 97.1 F 108 H 20 144/86 97 Oxygen-Last 24 hours Oxygen Flowrate (L/min)-RT 2 General Appearance: mild distress (legs are itching) Neurologic Exam: alert, 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, cooperative, normal mood/affect Eye Exam: eyes nml inspection Ears, Nose, Throat Exam: normal ENT inspection Neck Exam: normal inspection Respiratory Exam: wheezing Cardiovascular Exam: tachycardia (regular,rate= 115) Gastrointestinal/Abdomen Exam: distention (due to ascites) Pelvic Exam: not done Rectal Exam: not done Back Exam: other (no vertebral tenderness) Extremity Exam: amputations (left AKA), swelling (edema 2+/4 pitting) Skin Exam: warm, dry, pale (dusky) Wound Assessment: Skin/Wound Assessment Wound/Incision Assessment Start: 06/21/20 20:00 Text: Status: Active Freq: Q6H Protocol: Document 06/22/20 14:00 LELIA (Rec: 06/22/20 15:44 JW [id number]) Wound/Incision Assessment rt lower leg Wound Assessment Shift Assessment Wound Type cellulitis Wound Stage Non Pressure Wound Drainage Amount None General Appearance Open to air Wound Bed Greatest Portion Red (Granulation),Shiny Surrounding Tissue Dark Red Comment barrier cream applied, elevated Wound Photo Photo Taken No Results - Labs Lab/Micro Results: Lab Results-Last 24 Hours 06/21/20 06/21/20 06/21/20 Range/Units 18:33 18:35 18:49 WBC 9.8 (4.0-10.5) K/mm3 RBC 3.74 L (4.1-5.4) M/mm3 Hgb 10.5 L (12.0-16.0) gm/dl Hct 33.2 L (35-47) % MCV 88.8 (78-100) fl MCH 28.1 (26-32) pg MCHC 31.6 L (32-36) g/dl RDW 16.5 H (11.5-14.0) % Plt Count 145 L (150-450) K/mm3 MPV 10.2 (7.5-11.0) fl Gran % 72.8 H (36.0-66.0) % Eos # (Auto) 0.29 (0-0.5) Absolute Lymphs (auto) 1.62 (1.0-4.6) Absolute Monos (auto) 0.74 (0.0-1.3) Lymphocytes % 16.5 L (24.0-44.0) % Monocytes % 7.5 (0.0-12.0) % Eosinophils % 3.0 (0.00-5.0) % Basophils % 0.2 (0.0-0.4) % Absolute Granulocytes 7.14 H (1.4-6.9) Basophils # 0.02 (0-0.4) Sodium (137-145) mmol/L Potassium (3.5-5.1) mmol/L Chloride (98-107) mmol/L Carbon Dioxide (22-30) mmol/L Anion Gap (5-15) MEQ/L BUN (7-17) mg/dL Creatinine (0.52-1.04) mg/dL Estimated GFR ML/MIN Glucose (74-106) mg/dL POC Glucometer 137 H (74 to 106) mg/dL Hemoglobin A1c (4.5-6.0) % Lactic Acid 1.3 (0.4-2.0) Calcium (8.4-10.2) mg/dL Total Bilirubin (0.2-1.3) mg/dL AST (14-36) U/L ALT (0-35) U/L Alkaline Phosphatase (38-126) U/L Serum Total Protein (6.3-8.2) g/dL Albumin (3.5-5.0) g/dL Urine Color (YELLOW) Urine Appearance (CLEAR) Urine pH (5-6) Ur Specific [place] (1.005-1.025) Urine Protein (Negative) Urine Ketones (NEGATIVE) Urine Blood (0-5) Ubaldo/ul Urine Nitrite (NEGATIVE) Urine Bilirubin (NEGATIVE) Urine Urobilinogen (0-1) mg/dL Ur Leukocyte Esterase (NEGATIVE) Urine WBC (Auto) (0-5) /HPF Urine RBC (Auto) (0-2) /HPF U Epithel Cells (Auto) (FEW) /HPF Urine Bacteria (Auto) (NEGATIVE) /HPF Urine Culture Reflexed (NO) Urine Glucose (NEGATIVE) mg/dL SARS-CoV-2 (PCR) (NEGATIVE) 06/21/20 06/21/20 06/21/20 Range/Units 18:49 19:32 22:30 WBC (4.0-10.5) K/mm3 RBC (4.1-5.4) M/mm3 Hgb (12.0-16.0) gm/dl Hct (35-47) % MCV (78-100) fl MCH (26-32) pg MCHC (32-36) g/dl RDW (11.5-14.0) % Plt Count (150-450) K/mm3 MPV (7.5-11.0) fl Gran % (36.0-66.0) % Eos # (Auto) (0-0.5) Absolute Lymphs (auto) (1.0-4.6) Absolute Monos (auto) (0.0-1.3) Lymphocytes % (24.0-44.0) % Monocytes % (0.0-12.0) % Eosinophils % (0.00-5.0) % Basophils % (0.0-0.4) % Absolute Granulocytes (1.4-6.9) Basophils # (0-0.4) Sodium 130 L (137-145) mmol/L Potassium 5.2 H (3.5-5.1) mmol/L Chloride 101 (98-107) mmol/L Carbon Dioxide 28 (22-30) mmol/L Anion Gap 6.8 (5-15) MEQ/L BUN 42 H (7-17) mg/dL Creatinine 1.48 H (0.52-1.04) mg/dL Estimated GFR 39.2 ML/MIN Glucose 104 (74-106) mg/dL POC Glucometer (74 to 106) mg/dL Hemoglobin A1c (4.5-6.0) % Lactic Acid (0.4-2.0) Calcium 8.6 (8.4-10.2) mg/dL Total Bilirubin 0.60 (0.2-1.3) mg/dL AST 28 (14-36) U/L ALT 24 (0-35) U/L Alkaline Phosphatase 196 H (38-126) U/L Serum Total Protein 6.4 (6.3-8.2) g/dL Albumin 2.8 L (3.5-5.0) g/dL Urine Color YELLOW (YELLOW) Urine Appearance CLEAR (CLEAR) Urine pH 6.0 (5-6) Ur Specific [place] 1.006 (1.005-1.025) Urine Protein NEGATIVE (Negative) Urine Ketones NEGATIVE (NEGATIVE) Urine Blood NEGATIVE (0-5) Ubaldo/ul Urine Nitrite NEGATIVE (NEGATIVE) Urine Bilirubin NEGATIVE (NEGATIVE) Urine Urobilinogen NEGATIVE (0-1) mg/dL Ur Leukocyte Esterase NEGATIVE (NEGATIVE) Urine WBC (Auto) NONE (0-5) /HPF Urine RBC (Auto) NONE (0-2) /HPF U Epithel Cells (Auto) RARE (FEW) /HPF Urine Bacteria (Auto) NONE SEEN (NEGATIVE) /HPF Urine Culture Reflexed ORDERED SEPARATELY (NO) Urine Glucose NEGATIVE (NEGATIVE) mg/dL SARS-CoV-2 (PCR) NEGATIVE (NEGATIVE) 06/22/20 06/22/20 06/22/20 Range/Units 05:00 06:03 06:03 WBC 6.5 (4.0-10.5) K/mm3 RBC 3.31 L (4.1-5.4) M/mm3 Hgb 9.2 L (12.0-16.0) gm/dl Hct 29.8 L (35-47) % MCV 90.0 (78-100) fl MCH 27.8 (26-32) pg MCHC 30.9 L (32-36) g/dl RDW 16.1 H (11.5-14.0) % Plt Count 121 L (150-450) K/mm3 MPV 9.5 (7.5-11.0) fl Gran % 73.0 H (36.0-66.0) % Eos # (Auto) 0.12 (0-0.5) Absolute Lymphs (auto) 1.20 (1.0-4.6) Absolute Monos (auto) 0.43 (0.0-1.3) Lymphocytes % 18.4 L (24.0-44.0) % Monocytes % 6.6 (0.0-12.0) % Eosinophils % 1.8 (0.00-5.0) % Basophils % 0.2 (0.0-0.4) % Absolute Granulocytes 4.75 (1.4-6.9) Basophils # 0.01 (0-0.4) Sodium (137-145) mmol/L Potassium (3.5-5.1) mmol/L Chloride (98-107) mmol/L Carbon Dioxide (22-30) mmol/L Anion Gap (5-15) MEQ/L BUN (7-17) mg/dL Creatinine (0.52-1.04) mg/dL Estimated GFR ML/MIN Glucose (74-106) mg/dL POC Glucometer (74 to 106) mg/dL Hemoglobin A1c 6.65 H (4.5-6.0) % Lactic Acid 0.5 (0.4-2.0) Calcium (8.4-10.2) mg/dL Total Bilirubin (0.2-1.3) mg/dL AST (14-36) U/L ALT (0-35) U/L Alkaline Phosphatase (38-126) U/L Serum Total Protein (6.3-8.2) g/dL Albumin (3.5-5.0) g/dL Urine Color (YELLOW) Urine Appearance (CLEAR) Urine pH (5-6) Ur Specific [place] (1.005-1.025) Urine Protein (Negative) Urine Ketones (NEGATIVE) Urine Blood (0-5) Ubaldo/ul Urine Nitrite (NEGATIVE) Urine Bilirubin (NEGATIVE) Urine Urobilinogen (0-1) mg/dL Ur Leukocyte Esterase (NEGATIVE) Urine WBC (Auto) (0-5) /HPF Urine RBC (Auto) (0-2) /HPF U Epithel Cells (Auto) (FEW) /HPF Urine Bacteria (Auto) (NEGATIVE) /HPF Urine Culture Reflexed (NO) Urine Glucose (NEGATIVE) mg/dL SARS-CoV-2 (PCR) (NEGATIVE) 06/22/20 06/22/20 06/22/20 Range/Units 06:03 07:01 07:49 WBC (4.0-10.5) K/mm3 RBC (4.1-5.4) M/mm3 Hgb (12.0-16.0) gm/dl Hct (35-47) % MCV (78-100) fl MCH (26-32) pg MCHC (32-36) g/dl RDW (11.5-14.0) % Plt Count (150-450) K/mm3 MPV (7.5-11.0) fl Gran % (36.0-66.0) % Eos # (Auto) (0-0.5) Absolute Lymphs (auto) (1.0-4.6) Absolute Monos (auto) (0.0-1.3) Lymphocytes % (24.0-44.0) % Monocytes % (0.0-12.0) % Eosinophils % (0.00-5.0) % Basophils % (0.0-0.4) % Absolute Granulocytes (1.4-6.9) Basophils # (0-0.4) Sodium 130 L (137-145) mmol/L Potassium 5.7 H (3.5-5.1) mmol/L Chloride 100 (98-107) mmol/L Carbon Dioxide 29 (22-30) mmol/L Anion Gap 6.6 (5-15) MEQ/L BUN 40 H (7-17) mg/dL Creatinine 1.48 H (0.52-1.04) mg/dL Estimated GFR 39.2 ML/MIN Glucose 55 L (74-106) mg/dL POC Glucometer 50 L 91 (74 to 106) mg/dL Hemoglobin A1c (4.5-6.0) % Lactic Acid (0.4-2.0) Calcium 8.4 (8.4-10.2) mg/dL Total Bilirubin 0.50 (0.2-1.3) mg/dL AST 30 (14-36) U/L ALT 22 (0-35) U/L Alkaline Phosphatase 185 H (38-126) U/L Serum Total Protein 6.1 L (6.3-8.2) g/dL Albumin 2.7 L (3.5-5.0) g/dL Urine Color (YELLOW) Urine Appearance (CLEAR) Urine pH (5-6) Ur Specific [place] (1.005-1.025) Urine Protein (Negative) Urine Ketones (NEGATIVE) Urine Blood (0-5) Ubaldo/ul Urine Nitrite (NEGATIVE) Urine Bilirubin (NEGATIVE) Urine Urobilinogen (0-1) mg/dL Ur Leukocyte Esterase (NEGATIVE) Urine WBC (Auto) (0-5) /HPF Urine RBC (Auto) (0-2) /HPF U Epithel Cells (Auto) (FEW) /HPF Urine Bacteria (Auto) (NEGATIVE) /HPF Urine Culture Reflexed (NO) Urine Glucose (NEGATIVE) mg/dL SARS-CoV-2 (PCR) (NEGATIVE) 06/22/20 06/22/20 Range/Units 11:29 16:43 WBC (4.0-10.5) K/mm3 RBC (4.1-5.4) M/mm3 Hgb (12.0-16.0) gm/dl Hct (35-47) % MCV (78-100) fl MCH (26-32) pg MCHC (32-36) g/dl RDW (11.5-14.0) % Plt Count (150-450) K/mm3 MPV (7.5-11.0) fl Gran % (36.0-66.0) % Eos # (Auto) (0-0.5) Absolute Lymphs (auto) (1.0-4.6) Absolute Monos (auto) (0.0-1.3) Lymphocytes % (24.0-44.0) % Monocytes % (0.0-12.0) % Eosinophils % (0.00-5.0) % Basophils % (0.0-0.4) % Absolute Granulocytes (1.4-6.9) Basophils # (0-0.4) Sodium (137-145) mmol/L Potassium (3.5-5.1) mmol/L Chloride (98-107) mmol/L Carbon Dioxide (22-30) mmol/L Anion Gap (5-15) MEQ/L BUN (7-17) mg/dL Creatinine (0.52-1.04) mg/dL Estimated GFR ML/MIN Glucose (74-106) mg/dL POC Glucometer 182 H 346 H (74 to 106) mg/dL Hemoglobin A1c (4.5-6.0) % Lactic Acid (0.4-2.0) Calcium (8.4-10.2) mg/dL Total Bilirubin (0.2-1.3) mg/dL AST (14-36) U/L ALT (0-35) U/L Alkaline Phosphatase (38-126) U/L Serum Total Protein (6.3-8.2) g/dL Albumin (3.5-5.0) g/dL Urine Color (YELLOW) Urine Appearance (CLEAR) Urine pH (5-6) Ur Specific [place] (1.005-1.025) Urine Protein (Negative) Urine Ketones (NEGATIVE) Urine Blood (0-5) Ubaldo/ul Urine Nitrite (NEGATIVE) Urine Bilirubin (NEGATIVE) Urine Urobilinogen (0-1) mg/dL Ur Leukocyte Esterase (NEGATIVE) Urine WBC (Auto) (0-5) /HPF Urine RBC (Auto) (0-2) /HPF U Epithel Cells (Auto) (FEW) /HPF Urine Bacteria (Auto) (NEGATIVE) /HPF Urine Culture Reflexed (NO) Urine Glucose (NEGATIVE) mg/dL SARS-CoV-2 (PCR) (NEGATIVE) Accuchecks Date 06/22/20 Date 06/22/20 Date 06/22/20 Date 06/22/20 Date 06/21/20 Time 16:58 Time 11:30 Time 07:23 Time 07:14 Time 18:36 - Radiology Impressions Radiology Exams & Impressions: Radiology Procedures Category Date Time Status CHEST 1 VIEW (PORTABLE) Stat Exams 06/21/20 18:48 Completed - Other Procedures and Tests Respiratory Therapy 06/21/20 21:14 Oxygen Nasal Cannula 2 lpm Respiratory Therapy Assessment DAILY 06/22/20 07:00 Peak Expiratory Flow Rate DAILY Assessment/Plan (1) Cellulitis, leg Current Visit: Yes Status: Acute Assessment & Plan: bilateral (2) Cellulitis Current Visit: Yes Status: Acute Qualifiers: Site of cellulitis of extremity: lower extremity Laterality: unspecified laterality Assessment & Plan: ER started patient IV Clindamycin now redness and itching Code(s): L03.90 - CELLULITIS, UNSPECIFIED (3) Edema of both lower extremities Current Visit: Yes Status: Acute Code(s): R60.0 - LOCALIZED EDEMA (4) Renal failure (ARF), acute on chronic Current Visit: Yes Status: Acute Code(s): N17.9 - ACUTE KIDNEY FAILURE, UNSPECIFIED; N18.9 - CHRONIC KIDNEY DISEASE, UNSPECIFIED (5) Abdominal ascites Current Visit: Yes Status: Chronic Qualifiers: Ascites type: other type Qualified Code(s): R18.8 - Other ascites Assessment & Plan: require peritoneal tap,[facility] less than 2 weeks ago. Code(s): R18.8 - OTHER ASCITES (6) Hyponatremia Current Visit: No Status: Acute Code(s): E87.1 - HYPO-OSMOLALITY AND HYPONATREMIA (7) Hyperkalemia Current Visit: No Status: Acute Code(s): E87.5 - HYPERKALEMIA (8) Tachycardia with heart rate 100-120 beats per minute Current Visit: Yes Status: Acute Code(s): R00.0 - TACHYCARDIA, UNSPECIFIED (9) Anemia Current Visit: No Status: Acute Qualifiers: Anemia type: other cause Code(s): D64.9 - ANEMIA, UNSPECIFIED (10) Rash due to allergy Current Visit: Yes Status: Acute Assessment & Plan: redness like sunburn and itching on legs since starting Clindamycin Code(s): T78.40XA - ALLERGY, UNSPECIFIED, INITIAL ENCOUNTER; R21 - RASH AND OTHER NONSPECIFIC SKIN ERUPTION Hospital Summary - Hospital Course Hospital Course: See HPI. Phone consult with [place] Inspector , Dr Thrasher who agreed to manage patient ,transferring to [facility]. - Vitals & Intake/Output Vital Signs: Vital Signs Temperature 98.6 F 06/22/20 16:00 Pulse Rate 115 H 06/22/20 16:00 Respiratory Rate 16 06/22/20 16:00 Blood Pressure 112/61 06/22/20 16:00 O2 Sat by Pulse Oximetry 99 06/22/20 16:00 Intake & Output: Intake & Output 06/20/20 06/21/20 06/22/20 06/23/20 11:59 11:59 11:59 11:59 Intake Total 1220 1471 Output Total 1150 Balance 70 1471 Weight 90.2 kg - Lab Result Diagrams: 06/22/20 06:03 06/22/20 06:03 Lab Results-Last 24 Hrs: Lab Results-Last 24 Hours 06/21/20 06/21/20 06/21/20 Range/Units 18:33 18:35 18:49 WBC 9.8 (4.0-10.5) K/mm3 RBC 3.74 L (4.1-5.4) M/mm3 Hgb 10.5 L (12.0-16.0) gm/dl Hct 33.2 L (35-47) % MCV 88.8 (78-100) fl MCH 28.1 (26-32) pg MCHC 31.6 L (32-36) g/dl RDW 16.5 H (11.5-14.0) % Plt Count 145 L (150-450) K/mm3 MPV 10.2 (7.5-11.0) fl Gran % 72.8 H (36.0-66.0) % Eos # (Auto) 0.29 (0-0.5) Absolute Lymphs (auto) 1.62 (1.0-4.6) Absolute Monos (auto) 0.74 (0.0-1.3) Lymphocytes % 16.5 L (24.0-44.0) % Monocytes % 7.5 (0.0-12.0) % Eosinophils % 3.0 (0.00-5.0) % Basophils % 0.2 (0.0-0.4) % Absolute Granulocytes 7.14 H (1.4-6.9) Basophils # 0.02 (0-0.4) Sodium (137-145) mmol/L Potassium (3.5-5.1) mmol/L Chloride (98-107) mmol/L Carbon Dioxide (22-30) mmol/L Anion Gap (5-15) MEQ/L BUN (7-17) mg/dL Creatinine (0.52-1.04) mg/dL Estimated GFR ML/MIN Glucose (74-106) mg/dL POC Glucometer 137 H (74 to 106) mg/dL Hemoglobin A1c (4.5-6.0) % Lactic Acid 1.3 (0.4-2.0) Calcium (8.4-10.2) mg/dL Total Bilirubin (0.2-1.3) mg/dL AST (14-36) U/L ALT (0-35) U/L Alkaline Phosphatase (38-126) U/L Serum Total Protein (6.3-8.2) g/dL Albumin (3.5-5.0) g/dL Urine Color (YELLOW) Urine Appearance (CLEAR) Urine pH (5-6) Ur Specific [place] (1.005-1.025) Urine Protein (Negative) Urine Ketones (NEGATIVE) Urine Blood (0-5) Ubaldo/ul Urine Nitrite (NEGATIVE) Urine Bilirubin (NEGATIVE) Urine Urobilinogen (0-1) mg/dL Ur Leukocyte Esterase (NEGATIVE) Urine WBC (Auto) (0-5) /HPF Urine RBC (Auto) (0-2) /HPF U Epithel Cells (Auto) (FEW) /HPF Urine Bacteria (Auto) (NEGATIVE) /HPF Urine Culture Reflexed (NO) Urine Glucose (NEGATIVE) mg/dL SARS-CoV-2 (PCR) (NEGATIVE) 06/21/20 06/21/20 06/21/20 Range/Units 18:49 19:32 22:30 WBC (4.0-10.5) K/mm3 RBC (4.1-5.4) M/mm3 Hgb (12.0-16.0) gm/dl Hct (35-47) % MCV (78-100) fl MCH (26-32) pg MCHC (32-36) g/dl RDW (11.5-14.0) % Plt Count (150-450) K/mm3 MPV (7.5-11.0) fl Gran % (36.0-66.0) % Eos # (Auto) (0-0.5) Absolute Lymphs (auto) (1.0-4.6) Absolute Monos (auto) (0.0-1.3) Lymphocytes % (24.0-44.0) % Monocytes % (0.0-12.0) % Eosinophils % (0.00-5.0) % Basophils % (0.0-0.4) % Absolute Granulocytes (1.4-6.9) Basophils # (0-0.4) Sodium 130 L (137-145) mmol/L Potassium 5.2 H (3.5-5.1) mmol/L Chloride 101 (98-107) mmol/L Carbon Dioxide 28 (22-30) mmol/L Anion Gap 6.8 (5-15) MEQ/L BUN 42 H (7-17) mg/dL Creatinine 1.48 H (0.52-1.04) mg/dL Estimated GFR 39.2 ML/MIN Glucose 104 (74-106) mg/dL POC Glucometer (74 to 106) mg/dL Hemoglobin A1c (4.5-6.0) % Lactic Acid (0.4-2.0) Calcium 8.6 (8.4-10.2) mg/dL Total Bilirubin 0.60 (0.2-1.3) mg/dL AST 28 (14-36) U/L ALT 24 (0-35) U/L Alkaline Phosphatase 196 H (38-126) U/L Serum Total Protein 6.4 (6.3-8.2) g/dL Albumin 2.8 L (3.5-5.0) g/dL Urine Color YELLOW (YELLOW) Urine Appearance CLEAR (CLEAR) Urine pH 6.0 (5-6) Ur Specific [place] 1.006 (1.005-1.025) Urine Protein NEGATIVE (Negative) Urine Ketones NEGATIVE (NEGATIVE) Urine Blood NEGATIVE (0-5) Ubaldo/ul Urine Nitrite NEGATIVE (NEGATIVE) Urine Bilirubin NEGATIVE (NEGATIVE) Urine Urobilinogen NEGATIVE (0-1) mg/dL Ur Leukocyte Esterase NEGATIVE (NEGATIVE) Urine WBC (Auto) NONE (0-5) /HPF Urine RBC (Auto) NONE (0-2) /HPF U Epithel Cells (Auto) RARE (FEW) /HPF Urine Bacteria (Auto) NONE SEEN (NEGATIVE) /HPF Urine Culture Reflexed ORDERED SEPARATELY (NO) Urine Glucose NEGATIVE (NEGATIVE) mg/dL SARS-CoV-2 (PCR) NEGATIVE (NEGATIVE) 06/22/20 06/22/20 06/22/20 Range/Units 05:00 06:03 06:03 WBC 6.5 (4.0-10.5) K/mm3 RBC 3.31 L (4.1-5.4) M/mm3 Hgb 9.2 L (12.0-16.0) gm/dl Hct 29.8 L (35-47) % MCV 90.0 (78-100) fl MCH 27.8 (26-32) pg MCHC 30.9 L (32-36) g/dl RDW 16.1 H (11.5-14.0) % Plt Count 121 L (150-450) K/mm3 MPV 9.5 (7.5-11.0) fl Gran % 73.0 H (36.0-66.0) % Eos # (Auto) 0.12 (0-0.5) Absolute Lymphs (auto) 1.20 (1.0-4.6) Absolute Monos (auto) 0.43 (0.0-1.3) Lymphocytes % 18.4 L (24.0-44.0) % Monocytes % 6.6 (0.0-12.0) % Eosinophils % 1.8 (0.00-5.0) % Basophils % 0.2 (0.0-0.4) % Absolute Granulocytes 4.75 (1.4-6.9) Basophils # 0.01 (0-0.4) Sodium (137-145) mmol/L Potassium (3.5-5.1) mmol/L Chloride (98-107) mmol/L Carbon Dioxide (22-30) mmol/L Anion Gap (5-15) MEQ/L BUN (7-17) mg/dL Creatinine (0.52-1.04) mg/dL Estimated GFR ML/MIN Glucose (74-106) mg/dL POC Glucometer (74 to 106) mg/dL Hemoglobin A1c 6.65 H (4.5-6.0) % Lactic Acid 0.5 (0.4-2.0) Calcium (8.4-10.2) mg/dL Total Bilirubin (0.2-1.3) mg/dL AST (14-36) U/L ALT (0-35) U/L Alkaline Phosphatase (38-126) U/L Serum Total Protein (6.3-8.2) g/dL Albumin (3.5-5.0) g/dL Urine Color (YELLOW) Urine Appearance (CLEAR) Urine pH (5-6) Ur Specific [place] (1.005-1.025) Urine Protein (Negative) Urine Ketones (NEGATIVE) Urine Blood (0-5) Ubaldo/ul Urine Nitrite (NEGATIVE) Urine Bilirubin (NEGATIVE) Urine Urobilinogen (0-1) mg/dL Ur Leukocyte Esterase (NEGATIVE) Urine WBC (Auto) (0-5) /HPF Urine RBC (Auto) (0-2) /HPF U Epithel Cells (Auto) (FEW) /HPF Urine Bacteria (Auto) (NEGATIVE) /HPF Urine Culture Reflexed (NO) Urine Glucose (NEGATIVE) mg/dL SARS-CoV-2 (PCR) (NEGATIVE) 06/22/20 06/22/20 06/22/20 Range/Units 06:03 07:01 07:49 WBC (4.0-10.5) K/mm3 RBC (4.1-5.4) M/mm3 Hgb (12.0-16.0) gm/dl Hct (35-47) % MCV (78-100) fl MCH (26-32) pg MCHC (32-36) g/dl RDW (11.5-14.0) % Plt Count (150-450) K/mm3 MPV (7.5-11.0) fl Gran % (36.0-66.0) % Eos # (Auto) (0-0.5) Absolute Lymphs (auto) (1.0-4.6) Absolute Monos (auto) (0.0-1.3) Lymphocytes % (24.0-44.0) % Monocytes % (0.0-12.0) % Eosinophils % (0.00-5.0) % Basophils % (0.0-0.4) % Absolute Granulocytes (1.4-6.9) Basophils # (0-0.4) Sodium 130 L (137-145) mmol/L Potassium 5.7 H (3.5-5.1) mmol/L Chloride 100 (98-107) mmol/L Carbon Dioxide 29 (22-30) mmol/L Anion Gap 6.6 (5-15) MEQ/L BUN 40 H (7-17) mg/dL Creatinine 1.48 H (0.52-1.04) mg/dL Estimated GFR 39.2 ML/MIN Glucose 55 L (74-106) mg/dL POC Glucometer 50 L 91 (74 to 106) mg/dL Hemoglobin A1c (4.5-6.0) % Lactic Acid (0.4-2.0) Calcium 8.4 (8.4-10.2) mg/dL Total Bilirubin 0.50 (0.2-1.3) mg/dL AST 30 (14-36) U/L ALT 22 (0-35) U/L Alkaline Phosphatase 185 H (38-126) U/L Serum Total Protein 6.1 L (6.3-8.2) g/dL Albumin 2.7 L (3.5-5.0) g/dL Urine Color (YELLOW) Urine Appearance (CLEAR) Urine pH (5-6) Ur Specific [place] (1.005-1.025) Urine Protein (Negative) Urine Ketones (NEGATIVE) Urine Blood (0-5) Ubaldo/ul Urine Nitrite (NEGATIVE) Urine Bilirubin (NEGATIVE) Urine Urobilinogen (0-1) mg/dL Ur Leukocyte Esterase (NEGATIVE) Urine WBC (Auto) (0-5) /HPF Urine RBC (Auto) (0-2) /HPF U Epithel Cells (Auto) (FEW) /HPF Urine Bacteria (Auto) (NEGATIVE) /HPF Urine Culture Reflexed (NO) Urine Glucose (NEGATIVE) mg/dL SARS-CoV-2 (PCR) (NEGATIVE) 06/22/20 06/22/20 Range/Units 11:29 16:43 WBC (4.0-10.5) K/mm3 RBC (4.1-5.4) M/mm3 Hgb (12.0-16.0) gm/dl Hct (35-47) % MCV (78-100) fl MCH (26-32) pg MCHC (32-36) g/dl RDW (11.5-14.0) % Plt Count (150-450) K/mm3 MPV (7.5-11.0) fl Gran % (36.0-66.0) % Eos # (Auto) (0-0.5) Absolute Lymphs (auto) (1.0-4.6) Absolute Monos (auto) (0.0-1.3) Lymphocytes % (24.0-44.0) % Monocytes % (0.0-12.0) % Eosinophils % (0.00-5.0) % Basophils % (0.0-0.4) % Absolute Granulocytes (1.4-6.9) Basophils # (0-0.4) Sodium (137-145) mmol/L Potassium (3.5-5.1) mmol/L Chloride (98-107) mmol/L Carbon Dioxide (22-30) mmol/L Anion Gap (5-15) MEQ/L BUN (7-17) mg/dL Creatinine (0.52-1.04) mg/dL Estimated GFR ML/MIN Glucose (74-106) mg/dL POC Glucometer 182 H 346 H (74 to 106) mg/dL Hemoglobin A1c (4.5-6.0) % Lactic Acid (0.4-2.0) Calcium (8.4-10.2) mg/dL Total Bilirubin (0.2-1.3) mg/dL AST (14-36) U/L ALT (0-35) U/L Alkaline Phosphatase (38-126) U/L Serum Total Protein (6.3-8.2) g/dL Albumin (3.5-5.0) g/dL Urine Color (YELLOW) Urine Appearance (CLEAR) Urine pH (5-6) Ur Specific [place] (1.005-1.025) Urine Protein (Negative) Urine Ketones (NEGATIVE) Urine Blood (0-5) Ubaldo/ul Urine Nitrite (NEGATIVE) Urine Bilirubin (NEGATIVE) Urine Urobilinogen (0-1) mg/dL Ur Leukocyte Esterase (NEGATIVE) Urine WBC (Auto) (0-5) /HPF Urine RBC (Auto) (0-2) /HPF U Epithel Cells (Auto) (FEW) /HPF Urine Bacteria (Auto) (NEGATIVE) /HPF Urine Culture Reflexed (NO) Urine Glucose (NEGATIVE) mg/dL SARS-CoV-2 (PCR) (NEGATIVE) Micro Results-Entire Visit: Accuchecks Date 06/22/20 Date 06/22/20 Date 06/22/20 Date 06/22/20 Date 06/21/20 Time 16:58 Time 11:30 Time 07:23 Time 07:14 Time 18:36 - Radiology Exams Ordered Rad Exams-Entire Visit: Radiology Procedures Category Date Time Status CHEST 1 VIEW (PORTABLE) Stat Exams 06/21/20 18:48 Completed - Procedures and Test Procedures and Tests throughout Hospitalization: Therapy Orders & Screens 06/21/20 21:14 Oxygen Nasal Cannula 2 lpm Comment: as per home use Diagnosis: cellulitis Respiratory Therapy Assessment DAILY Comment: Diagnosis: cellulitis 06/21/20 21:52 PT Screen per Nursing Assess ONCE Comment: Protocol Order Physician Instructions: Greater than 3 points order PT Admission Screenin Reason For Exam: Triggered on Admission Diagnosis: cellulitis Open Wound/Cellutlitis/Pressure Ulcers: Yes Acute Fx/ORIF/Change in wt bearing status: No Severe MUSCULOSKELETAL pain: No ADL Dysfunction: No Acute CVA w/Hemiparesis/Hemiplegia: No Decreased Functional Mobility/Strength: Yes Sprain/Strain: No Acute Post-op Mobility Dysfunction: No Total Points: 6 RT Screen per Nursing Assess ONCE Comment: Protocol Order Physician Instructions: Greater than 3 points order RT Admission Screen Reason For Exam: Triggered on Admission Diagnosis: cellulitis Diagnosis: cellulitis Pneumonia: No Home O2: Yes: 2L Asthma: Yes CHF: No Home CPAP/BIPAP: No Home Nebs/MDI: Yes Total Points: 14 Smoking Cessation Education ONCE Comment: Diagnosis: cellulitis Smoking Status: Current every day smoker How long have you smoked: "35 years" Have you smoked in the past 12 months: Yes Approximately how many cigarettes per day: 4 Do you dip or chew tobacco: No If,Former Smoker,when did you quit: 09/04/19 06/22/20 07:00 Peak Expiratory Flow Rate DAILY Comment: Reason For Exam: Diagnosis: cellulitis - Discharge Disposition: [facility] Condition: Stable Prescriptions: Continue Duloxetine HCl 30 mg [Cymbalta 30 MG Capsule] 30 mg PO BID Omeprazole 20 MG [Prilosec 20 mg] 20 mg PO DAILY Albuterol Sulfate [Proair Hfa] 2 puff IH Q4HPRN PRN PRN Reason: RESP Pravastatin Sodium [Pravachol] 10 mg PO HS Gabapentin [Gralise] 400 mg PO TID Docusate Sodium 100 mg [Colace 100 MG] 100 mg PO HSPRN PRN PRN Reason: Constipation Ergocalciferol (Vitamin D2) [Vitamin D] 50,000 units PO CHEW Hydroxyzine HCl 10 mg PO BID Ferrous Sulfate 325 mg PO BID Levothyroxine Sodium 25 Mcg [Synthroid 25 Mcg] 25 mcg PO DAILY Lisinopril 5 mg [Zestril 5 MG] 5 mg PO DAILY #90 tablet Ondansetron ODT 4 MG [Zofran Odt 4 mg] 4 mg PO Q6H PRN PRN #10 tab.rapdis PRN Reason: Vomiting Metoprolol Tartrate 25 mg [Lopressor 25MG Tab] 1 tab PO DAILY Insulin Glargine [Lantus Insulin] 30 units SQ HS Tiotropium [place] [Spiriva Respimat] 1 puff IH DAILY Lactulose [Lactulose 20 gm/30Ml Ud Cup] 20 gm PO TID Furosemide 40 mg [Lasix 40 MG] 40 mg PO BID Insulin Lispro [Humalog Kwikpen U-100] 10 unit SQ TIDWMEALS Promethazine HCl 25 mg [Phenergan 25 mg] 25 mg PO Q6HPRN PRN PRN Reason: Nausea/Vomiting Hydrocodone/Acetaminophen [Hydrocodone-Acetamin 10-325 mg] 1 ea BID Apixaban [Eliquis] 5 mg PO DAILY Nicotine 14 mg [Nicoderm Cq 14 mg] 14 mg TD Q24H Follow up with: SARAH AMIN DO [Primary Care Provider] - 1 Week
[2020-06-22] MEDS ORDERED: Spiriva 18 Mcg/Cap Inhaler IH ONE (19:11)
[2020-06-22 19:49] VITALS: BP 122/59; PULSE 116; O2SAT 94
[2020-06-22] MEDS ORDERED: BENADRYL 25 MG CAPSULE PO ONE (20:11)
[2020-06-22] MEDS ORDERED: BENADRYL 25 MG CAPSULE ONE (20:14)
[2020-06-22] MEDS ORDERED: NON-FORMULARY ITEM (Apixaban [Eliquis] 5 MG) PO SCH (22:00)
[2020-06-22] MEDS ORDERED: Lasix 40 MG PO SCH (22:00)
[2020-06-22] MEDS ORDERED: ELIQUIS 2.5 MG TABLET PO SCH (22:00)
[2020-06-22] MEDS ORDERED: Lantus Insulin SQ SCH (22:00)
[2020-06-22] MEDS ORDERED: FEOSOL 325 MG PO SCH (22:00)
[2020-06-23] MEDS ORDERED: Spiriva 18 Mcg/Cap Inhaler IH SCH (07:00)
[2020-06-23] MEDS ORDERED: HUMALOG SQ SCH (08:00)
[2020-06-23] MEDS ORDERED: INSULIN LISPRO 10 UNIT SQ SCH (08:00)
[2020-06-23] MEDS ORDERED: SYNTHROID 25 MCG PO SCH (10:00)
[2020-06-23] MEDS ORDERED: NON-FORMULARY ITEM (Omeprazole 20 Mg [Prilosec 20 Mg] 20 MG) PO SCH (10:00)
[2020-06-23] MEDS ORDERED: TIOTROPIUM BROMIDE IH SCH (10:00)
[2020-06-23] MEDS ORDERED: Lopressor 25MG Tab PO SCH (10:00)
[2020-06-28] MEDS ORDERED: VITAMIN D2 PO SCH (17:02)
== END 2020-06-22 21:20 | disposition home or self-care (01) ==
LOC: ED 18:05 → MED SURG 20:19
PROVIDERS: ADMIT Family Medicine; ATTEND Family Medicine
DX: L03.115 Cellulitis of right lower limb (principal); L03.116 Cellulitis of left lower limb; N17.9 Acute kidney failure, unspecified; E11.22 Type 2 diabetes mellitus with diabetic chronic kidney disease; I12.9 Hypertensive chronic kidney disease with stage 1 through stage 4 chronic kidney disease, or unspecified chronic kidney disease; R18.8 Other ascites; K74.60 Unspecified cirrhosis of liver; E87.1 Hypo-osmolality and hyponatremia; E87.5 Hyperkalemia; R00.0 Tachycardia, unspecified; D64.9 Anemia, unspecified; T78.40XA Allergy, unspecified, initial encounter; R21 Rash and other nonspecific skin eruption; Z79.899 Other long term (current) drug therapy; Z79.01 Long term (current) use of anticoagulants; Z86.711 Personal history of pulmonary embolism; Z89.512 Acquired absence of left leg below knee
CPT/HCPCS: 36000; 36415; 51701; 51702; 71045; 80053; 81001; 82962; 83036; 83605; 85025; 87040; 87086; 93005; 93041; 94150; 94640; 94760; 96360; 96365; 99285; J1817; J7609; U0003; A9270-GY; G0378

== ENCOUNTER 2020-07-16 17:47 | Inpatient (IN) | payer MEDICARE ==
--- NOTE | 2020-07-16 18:04 | ERPHSYRPT ---
- History of Present Illness Time Seen by Provider: 07/16/20 17:58 Source: patient Physician History: Patient is a 55-year-old female presents to our ED with complaints of shortness of breath. Patient has a history of hepatitis and recurrent ascites. Patient normally gets a paracentesis every 3 weeks. Her last paracentesis was 2 weeks ago. Patient states that she has been accumulating fluid more frequently and her radiologist advised her to obtain paracentesis every 2 weeks instead of ev ubaldo 3 weeks. Patient is currently on Xarelto due to a known PE. Patient denies chest pain. No nausea vomiting or diaphoresis. Symptoms are mild to moderate in intensity. No specific worsening or improving factors. Patient voices no other complaints or concerns at this time. Timing/Duration: today Severity: moderate Modifying Factors: Improves With: nothing Associated Symptoms: cough, No nausea, No vomiting, No abdominal pain Allergies/Adverse Reactions: adhesive tape Allergy (Mild, Verified 07/16/20 17:53) redness clindamycin Adverse Reaction (Verified 07/16/20 17:53) Skin Irritation sunburn like redness and itching bee stings Allergy (Mild, Uncoded 07/16/20 17:53) Anaphylactic Reaction trouble breathing and swelling. Home Medications: Duloxetine HCl 30 mg [Cymbalta 30 MG Capsule] 30 mg PO BID 11/17/12 [History] Albuterol Sulfate [Proair Hfa] 2 puff IH Q4HPRN PRN 04/21/15 [History] Omeprazole 20 MG [Prilosec 20 mg] 20 mg PO DAILY 04/21/15 [History] Pravastatin Sodium [Pravachol] 10 mg PO HS 02/07/16 [History] Gabapentin [Gralise] 400 mg PO TID 11/11/16 [History] Docusate Sodium 100 mg [Colace 100 MG] 100 mg PO HSPRN PRN 01/18/19 [History] Ergocalciferol (Vitamin D2) [Vitamin D] 50,000 units PO CHEW 01/18/19 [History] Ferrous Sulfate 325 mg PO BID 01/18/19 [History] Hydroxyzine HCl 10 mg PO BID 01/18/19 [History] Levothyroxine Sodium 25 Mcg [Synthroid 25 Mcg] 25 mcg PO DAILY 01/18/19 [History] Insulin Glargine [Lantus Insulin] 30 units SQ HS 09/27/19 [History] Metoprolol Tartrate 25 mg [Lopressor 25MG Tab] 1 tab PO DAILY 09/27/19 [History] Tiotropium [place] [Spiriva Respimat] 1 puff IH DAILY 10/14/19 [History] Furosemide 40 mg [Lasix 40 MG] 40 mg PO BID 10/29/19 [History] Lactulose [Lactulose 20 gm/30Ml Ud Cup] 20 gm PO TID 10/29/19 [History] Insulin Lispro [Humalog Kwikpen U-100] 10 unit SQ TIDWMEALS 03/27/20 [History] Promethazine HCl 25 mg [Phenergan 25 mg] 25 mg PO Q6HPRN PRN 03/27/20 [History] Hydrocodone/Acetaminophen [Hydrocodone-Acetamin 10-325 mg] 1 ea BID 06/01/20 [History] Apixaban [Eliquis] 5 mg PO DAILY 06/21/20 [History] Nicotine 14 mg [Nicoderm Cq 14 mg] 14 mg TD Q24H 06/21/20 [History] Hx Tetanus, Diphtheria Vaccination/Date Given: Yes Hx Influenza Vaccination/Date Given: No Hx Pneumococcal Vaccination/Date Given: Yes - Review of Systems Constitutional: No Symptoms, No Fever, No Chills Eyes: No Symptoms Ears, Nose, & Throat: No Symptoms Respiratory: No Symptoms, No Cough, No Dyspnea Cardiac: No Symptoms, No Chest Pain, No Edema, No Syncope Abdominal/Gastrointestinal: No Symptoms, No Abdominal Pain, No Nausea, No Vomiting, No Diarrhea Genitourinary Symptoms: No Symptoms, No Dysuria Musculoskeletal: No Symptoms, No Back Pain, No Neck Pain Skin: No Symptoms, No Rash Neurological: No Symptoms, No Dizziness, No Focal Weakness, No Sensory Changes Psychological: No Symptoms Endocrine: No Symptoms Hematologic/Lymphatic: No Symptoms Immunological/Allergic: No Symptoms All Other Systems: Reviewed and Negative - Past Medical History Pertinent Past Medical History: Yes Neurological History: No Pertinent History ENT History: No Pertinent History Cardiac History: Hypertension Respiratory History: Asthma, COPD, Pneumonia, Pulmonary Embolism Endocrine Medical History: Diabetes Type II, Hypoglycemia, Hypothyroidism Musculoskeletal History: Fractures GI Medical History: GERD, Other History: Renal Disease Psycho-Social History: Anxiety, Depression Female Reproductive Disorders: No Pertinent History Other Medical History: left ankle fx with mult surgeries, in February 2019 bka,. ascites. fatty liver - Past Surgical History Past Surgical History: Yes Neuro Surgical History: No Pertinent History Cardiac: No Pertinent History Respiratory: No Pertinent History Gastrointestinal: Cholecystectomy, Exploratory Laparoscopy Genitourinary: No Pertinent History Musculoskeletal: Amputation Female Surgical History: Section, Hysterectomy Other Surgical History: foot surgery, screw placed in left big toe, removal, and antibiotic bead placement. mult lt foot surgeries. LT BKA February 2019 - Social History Smoking Status: Current every day smoker How long have you smoked: "35 years" Exposure to second hand smoke: No Drug Use: none Patient Lives Alone: No Significant Family History: no pertinent family hx - Nursing Vital Signs Nursing Vital Signs: Initial Vital Signs Temperature 97.9 F 07/16/20 17:53 Pulse Rate 112 H 07/16/20 17:53 Respiratory Rate 20 07/16/20 17:53 Blood Pressure 107/86 07/16/20 17:53 O2 Sat by Pulse Oximetry 99 07/16/20 17:53 Pain Scale Pain Intensity 0 - Physical Exam General Appearance: no apparent distress, alert Eye Exam: PERRL/EOMI, eyes nml inspection Ears, Nose, Throat Exam: normal ENT inspection, TMs normal, pharynx normal, moist mucous membranes Neck Exam: normal inspection, non-tender, supple, full range of motion Respiratory Exam: normal breath sounds, other (Coarse breath sounds bilaterally. Diminished breath sounds.), No respiratory distress Cardiovascular Exam: regular rate/rhythm, normal heart sounds, normal peripheral pulses Gastrointestinal/Abdomen Exam: soft, normal bowel sounds, distention, other (Distended abdomen with a fluid wave.), No tenderness, No mass Back Exam: normal inspection, normal range of motion, No CVA tenderness, No vertebral tenderness Extremity Exam: normal inspection, normal range of motion, pelvis stable, other (Left [place] amputation) Neurologic Exam: alert, 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, cooperative, normal mood/affect, nml cerebellar function, nml station & gait, sensation nml, No motor deficits Skin Exam: normal color, warm, dry, No rash Lymphatic Exam: No adenopathy SpO2 Interpretation: normal SpO2: 99 O2 Delivery: Room Air - Course Nursing assessment & vital signs reviewed: Yes EKG Interpreted by Me: RATE (106), Sinus Tach, NORMAL AXIS, NORMAL INTERVALS - Radiology Exams Chest X-ray Interpretation: Teleradiologist Report (Change compared to 06/21/2020. Diffuse bilateral interstitial opacities and right base infiltrate versus atelectasis. Nothing new.) Ordered Tests: Active Orders 24 hr Category Date Time Status Liver Trimmer STAT Care 07/16/20 17:59 Active EKG-ER Only STAT Care 07/16/20 17:58 Active IV Insertion STAT Care 07/16/20 17:58 Active Pulse Oximetry (ED) STAT Care 07/16/20 17:58 Active CHEST 1 VIEW (PORTABLE) Stat Exams 07/16/20 18:04 Taken BLOOD CULTURE Stat Lab 07/16/20 19:40 Received BNP [NT PRO BNP] Stat Lab 07/16/20 19:30 Completed CBC W DIFF Stat Lab 07/16/20 18:05 Completed CMP Stat Lab 07/16/20 18:05 Completed CULTURE,URINE Stat Lab 07/16/20 17:59 Received MAGNESIUM Stat Lab 07/16/20 18:05 Completed TROPONIN Q3H Lab 07/16/20 18:05 Completed TROPONIN Q3H Lab 07/16/20 19:30 Completed TROPONIN Q3H Lab 07/17/20 00:00 Ordered TROPONIN Q3H Lab 07/17/20 03:00 Ordered TROPONIN Q3H Lab 07/17/20 06:00 Ordered UA W/RFX UR CULTURE Stat Lab 07/16/20 17:59 Completed Respiratory Therapy Assessment DAILY RT 07/16/20 20:44 Active Transfer Order Routine Transfer 07/16/20 Ordered Medication Summary Discontinued Medications Generic Name Dose Route Start Last Admin Trade Name Freq PRN Reason Stop Dose Admin Albuterol Sulfate 2.5 mg 07/16/20 19:40 07/16/20 20:29 Proventil 2.5 Mg/3 Ml Neb IH 07/16/20 19:41 2.5 mg STAT ONE Administration Albuterol Sulfate Confirm 07/16/20 20:25 Proventil 2.5 Mg/3 Ml Neb Administered 07/16/20 20:26 Dose 2.5 mg IH .STK-MED ONE Ceftriaxone Sodium/Dextrose 1 g in 50 mls @ 100 mls/hr 07/16/20 19:19 07/16/20 20:13 Rocephin 1 Gm-D5w 50 Ml Bag IV 07/16/20 19:48 Infused STAT STA Infusion Ceftriaxone Sodium/Dextrose Confirm 07/16/20 19:31 Rocephin 1 Gm-D5w 50 Ml Bag Administered 07/16/20 19:32 Dose 1 g in 50 mls @ ud IV .STK-MED ONE Lab/Rad Data: Laboratory Result Diagrams 07/16/20 18:05 07/16/20 18:05 Laboratory Results 07/16/20 07/16/20 07/16/20 Range/Units 20:32 19:30 19:30 WBC (4.0-10.5) K/mm3 RBC (4.1-5.4) M/mm3 Hgb (12.0-16.0) gm/dl Hct (35-47) % MCV (78-100) fl MCH (26-32) pg MCHC (32-36) g/dl RDW (11.5-14.0) % Plt Count (150-450) K/mm3 MPV (7.5-11.0) fl Gran % (36.0-66.0) % Eos # (Auto) (0-0.5) Absolute Lymphs (auto) (1.0-4.6) Absolute Monos (auto) (0.0-1.3) Lymphocytes % (24.0-44.0) % Monocytes % (0.0-12.0) % Eosinophils % (0.00-5.0) % Basophils % (0.0-0.4) % Absolute Granulocytes (1.4-6.9) Basophils # (0-0.4) Sodium (137-145) mmol/L Potassium (3.5-5.1) mmol/L Chloride (98-107) mmol/L Carbon Dioxide (22-30) mmol/L Anion Gap (5-15) MEQ/L BUN (7-17) mg/dL Creatinine (0.52-1.04) mg/dL Estimated GFR ML/MIN Glucose (74-106) mg/dL Calcium (8.4-10.2) mg/dL Magnesium (1.6-2.3) mg/dL Total Bilirubin (0.2-1.3) mg/dL AST (14-36) U/L ALT (0-35) U/L Alkaline Phosphatase (38-126) U/L Troponin I < 0.012 (0.000-0.034) ng/mL NT-Pro-B Natriuret Pep 341 (0-900) pg/mL Serum Total Protein (6.3-8.2) g/dL Albumin (3.5-5.0) g/dL Urine Color (YELLOW) Urine Appearance (CLEAR) Urine pH (5-6) Ur Specific [place] (1.005-1.025) Urine Protein (Negative) Urine Ketones (NEGATIVE) Urine Blood (0-5) Ubaldo/ul Urine Nitrite (NEGATIVE) Urine Bilirubin (NEGATIVE) Urine Urobilinogen (0-1) mg/dL Ur Leukocyte Esterase (NEGATIVE) Urine WBC (Auto) (0-5) /HPF Urine RBC (Auto) (0-2) /HPF U Epithel Cells (Auto) (FEW) /HPF Urine Bacteria (Auto) (NEGATIVE) /HPF Urine Mucus (Auto) (NEGATIVE) /HPF Urine Culture Reflexed (NO) Urine Glucose (NEGATIVE) mg/dL SARS-CoV-2 (PCR) NEGATIVE (NEGATIVE) 07/16/20 07/16/20 07/16/20 Range/Units 18:05 18:05 18:05 WBC 17.1 H (4.0-10.5) K/mm3 RBC 3.49 L (4.1-5.4) M/mm3 Hgb 10.0 L (12.0-16.0) gm/dl Hct 30.3 L (35-47) % MCV 86.8 (78-100) fl MCH 28.7 (26-32) pg MCHC 33.0 (32-36) g/dl RDW 17.2 H (11.5-14.0) % Plt Count 204 (150-450) K/mm3 MPV 9.2 (7.5-11.0) fl Gran % 86.2 H (36.0-66.0) % Eos # (Auto) 0.23 (0-0.5) Absolute Lymphs (auto) 1.41 (1.0-4.6) Absolute Monos (auto) 0.70 (0.0-1.3) Lymphocytes % 8.3 L (24.0-44.0) % Monocytes % 4.1 (0.0-12.0) % Eosinophils % 1.3 (0.00-5.0) % Basophils % 0.1 (0.0-0.4) % Absolute Granulocytes 14.71 H (1.4-6.9) Basophils # 0.02 (0-0.4) Sodium 131 L (137-145) mmol/L Potassium 4.5 (3.5-5.1) mmol/L Chloride 105 (98-107) mmol/L Carbon Dioxide 19 L (22-30) mmol/L Anion Gap 11.5 (5-15) MEQ/L BUN 27 H (7-17) mg/dL Creatinine 1.72 H (0.52-1.04) mg/dL Estimated GFR 33.0 ML/MIN Glucose 157 H (74-106) mg/dL Calcium 8.0 L (8.4-10.2) mg/dL Magnesium 1.6 (1.6-2.3) mg/dL Total Bilirubin 0.30 (0.2-1.3) mg/dL AST 24 (14-36) U/L ALT 11 (0-35) U/L Alkaline Phosphatase 203 H (38-126) U/L Troponin I < 0.012 (0.000-0.034) ng/mL NT-Pro-B Natriuret Pep (0-900) pg/mL Serum Total Protein 6.6 (6.3-8.2) g/dL Albumin 2.8 L (3.5-5.0) g/dL Urine Color (YELLOW) Urine Appearance (CLEAR) Urine pH (5-6) Ur Specific [place] (1.005-1.025) Urine Protein (Negative) Urine Ketones (NEGATIVE) Urine Blood (0-5) Ubaldo/ul Urine Nitrite (NEGATIVE) Urine Bilirubin (NEGATIVE) Urine Urobilinogen (0-1) mg/dL Ur Leukocyte Esterase (NEGATIVE) Urine WBC (Auto) (0-5) /HPF Urine RBC (Auto) (0-2) /HPF U Epithel Cells (Auto) (FEW) /HPF Urine Bacteria (Auto) (NEGATIVE) /HPF Urine Mucus (Auto) (NEGATIVE) /HPF Urine Culture Reflexed (NO) Urine Glucose (NEGATIVE) mg/dL SARS-CoV-2 (PCR) (NEGATIVE) 07/16/20 Range/Units 17:59 WBC (4.0-10.5) K/mm3 RBC (4.1-5.4) M/mm3 Hgb (12.0-16.0) gm/dl Hct (35-47) % MCV (78-100) fl MCH (26-32) pg MCHC (32-36) g/dl RDW (11.5-14.0) % Plt Count (150-450) K/mm3 MPV (7.5-11.0) fl Gran % (36.0-66.0) % Eos # (Auto) (0-0.5) Absolute Lymphs (auto) (1.0-4.6) Absolute Monos (auto) (0.0-1.3) Lymphocytes % (24.0-44.0) % Monocytes % (0.0-12.0) % Eosinophils % (0.00-5.0) % Basophils % (0.0-0.4) % Absolute Granulocytes (1.4-6.9) Basophils # (0-0.4) Sodium (137-145) mmol/L Potassium (3.5-5.1) mmol/L Chloride (98-107) mmol/L Carbon Dioxide (22-30) mmol/L Anion Gap (5-15) MEQ/L BUN (7-17) mg/dL Creatinine (0.52-1.04) mg/dL Estimated GFR ML/MIN Glucose (74-106) mg/dL Calcium (8.4-10.2) mg/dL Magnesium (1.6-2.3) mg/dL Total Bilirubin (0.2-1.3) mg/dL AST (14-36) U/L ALT (0-35) U/L Alkaline Phosphatase (38-126) U/L Troponin I (0.000-0.034) ng/mL NT-Pro-B Natriuret Pep (0-900) pg/mL Serum Total Protein (6.3-8.2) g/dL Albumin (3.5-5.0) g/dL Urine Color YELLOW (YELLOW) Urine Appearance SLIGHTLY CLOUDY (CLEAR) Urine pH 5.0 (5-6) Ur Specific [place] 1.012 (1.005-1.025) Urine Protein 30 (Negative) Urine Ketones NEGATIVE (NEGATIVE) Urine Blood MODERATE (0-5) Ubaldo/ul Urine Nitrite NEGATIVE (NEGATIVE) Urine Bilirubin NEGATIVE (NEGATIVE) Urine Urobilinogen NEGATIVE (0-1) mg/dL Ur Leukocyte Esterase SMALL (NEGATIVE) Urine WBC (Auto) 16-25 (0-5) /HPF Urine RBC (Auto) 26-50 (0-2) /HPF U Epithel Cells (Auto) RARE (FEW) /HPF Urine Bacteria (Auto) NONE (NEGATIVE) /HPF Urine Mucus (Auto) SLIGHT (NEGATIVE) /HPF Urine Culture Reflexed YES (NO) Urine Glucose NEGATIVE (NEGATIVE) mg/dL SARS-CoV-2 (PCR) (NEGATIVE) - Progress Progress: improved Progress Note: Patient reassessed. She is well. Patient breathing somewhat easier. However her shortness of breath is not completely resolved. Patient has large ascites in her abdomen. This may need to be drained to restore patient's breathing pattern. Patient normally gets her ascites tapped every 3 weeks. Patient was advised to get it tapped every 2 weeks due to the rapid accumulation of fluid. Patient has a urinary tract infection IV antibiotics infused. Leukocytosis may be related to the urinary tract infection we will admit patient for further evaluation and treatment. Dr. Forbes covering Dr. Kiser. Dr. Valentino accepts patient observation. Plan of care discussed with patient. She agrees to admission to [facility] for further evaluation and treatment. Patient voices no other complaints concerns at this time. 07/16/20 22:00 Discussed with : Jonel Will see patient in: hospital (observation) Counseled pt/family regarding: lab results, diagnosis, rad results - Departure Departure Disposition: Observation Clinical Impression: SOB (shortness of breath), Leukocytosis, UTI (urinary tract infection), Ascites, Acute renal injury Condition: Stable Critical Care Time: No Referrals: SARAH AMIN, [Primary Care Provider] -
[2020-07-16 18:19] LABS: Absolute Neutrophil Ct (ANC) 14.71 (1.4-6.9); BASOPHIL % 0.1 % (0.0-0.4); Basophil (Absolute #) 0.02 (0-0.4); Eosinophil % 1.3 % (0.00-5.0); Eosinophil (Absolute #) 0.23 (0-0.5); Hematocrit 30.3 % (35-47); Lymphocyte (Absolute #) 1.41 (1.0-4.6); Lymphocytes % 8.3 % (24.0-44.0); Mean Cell Volume 86.8 fl (78-100); Mean Corpuscular Hemoglobin 28.7 pg (26-32); Mean Platelet Volume 9.2 fl (7.5-11.0); Monocytes % 4.1 % (0.0-12.0); Neutrophil % 86.2 % (36.0-66.0); Platelet Count 204 K/mm3 (150-450); Red Blood Count 3.49 M/mm3 (4.1-5.4); Red Cell Distribution Width 17.2 % (11.5-14.0); White Blood Count 17.1 K/mm3 (4.0-10.5)
[2020-07-16 18:48] LABS: ALBUMIN 2.8 g/dL (3.5-5.0); ANION GAP 11.5 MEQ/L (5-15); BILIRUBIN,TOTAL 0.3 mg/dL (0.2-1.3); Creatinine 1 1.72 mg/dL (0.52-1.04); MAGNESIUM 1.6 mg/dL (1.6-2.3); Potassium 4.5 mmol/L (3.5-5.1); Total Protein 6.6 g/dL (6.3-8.2)
[2020-07-16 18:57] LABS: Appearance SLIGHTLY CLOUDY (CLEAR); Bilirubin NEGATIVE (NEGATIVE); Blood MODERATE Ery/ul (0-5); Epithelial Cells RARE /HPF (FEW); Glucose NEGATIVE (NEGATIVE); Ketones NEGATIVE (NEGATIVE); Leukocyte Esterase SMALL (NEGATIVE); Mucus SLIGHT /HPF (NEGATIVE); Nitrite NEGATIVE (NEGATIVE); Protein,Urine Dip 30 (Negative); RBC 26-50 /HPF (0-2); Specific Gravity 1.012 (1.005-1.025); Urobilinogen NEGATIVE mg/dL (0-1)
[2020-07-16] MEDS ORDERED: ROCEPHIN 1 Gm-D5w 50 ml Bag** 1 G/50 ML IVPB IV STA (19:19)
[2020-07-16] MEDS ORDERED: ROCEPHIN 1 Gm-D5w 50 ml Bag** 1 G/50 ML IVPB IV ONE (19:31)
[2020-07-16] MEDS ORDERED: PROVENTIL 2.5 MG/3 ML NEB IH ONE ×3 (19:40→23:40)
[2020-07-16] MEDS: MORPHINE SULFATE 2 MG INJ IV PRN (23:37)
[2020-07-16] MEDS ORDERED: PROVENTIL 2.5 MG/3 ML NEB IH PRN (23:54)
[2020-07-17 04:00] LABS: ALBUMIN 2.7 g/dL (3.5-5.0); ANION GAP 11.1 MEQ/L (5-15); BILIRUBIN,TOTAL 0.3 mg/dL (0.2-1.3); Calcium 7.8 mg/dL (8.4-10.2); Creatinine 1 1.88 mg/dL (0.52-1.04); EST GLOMERULAR FILTRATION RATE 29.8 ML/MIN; Potassium 5.7 mmol/L (3.5-5.1); Total Protein 6.1 g/dL (6.3-8.2)
[2020-07-17 04:24] LABS: Absolute Neutrophil Ct (ANC) 10.27 (1.4-6.9); BASOPHIL % 0.2 % (0.0-0.4); Basophil (Absolute #) 0.03 (0-0.4); Eosinophil % 1.7 % (0.00-5.0); Eosinophil (Absolute #) 0.23 (0-0.5); Hematocrit 28.9 % (35-47); Hemoglobin 9.2 gm/dl (12.0-16.0); Lymphocyte (Absolute #) 2.05 (1.0-4.6); Lymphocytes % 15.3 % (24.0-44.0); Mean Cell Volume 88.7 fl (78-100); Mean Corpuscular Hemoglobin 28.2 pg (26-32); Mean Corpuscular Hgb Concent. 31.8 g/dl (32-36); Mean Platelet Volume 9.6 fl (7.5-11.0); Monocyte (Absolute #) 0.84 (0.0-1.3); Monocytes % 6.3 % (0.0-12.0); Neutrophil % 76.5 % (36.0-66.0); Platelet Count 175 K/mm3 (150-450); Red Blood Count 3.26 M/mm3 (4.1-5.4); Red Cell Distribution Width 17.4 % (11.5-14.0); White Blood Count 13.4 K/mm3 (4.0-10.5)
[2020-07-17] MEDS: PROVENTIL 2.5 MG/3 ML NEB IH SCH ×4 (07:03→19:18)
--- NOTE | 2020-07-17 08:36 | XRAY ---
Indication: Short of breath. Comparison: June 21. Portable chest unchanged again demonstrating diffuse bilateral interstitial opacities and mild right base infiltrate/atelectasis. Heart and mediastinal structures within normal limits. No new cardiopulmonary abnormalities.
[2020-07-17] MEDS: Spiriva 18 Mcg/Cap Inhaler IH SCH (08:50)
[2020-07-17] MEDS: Kayexylate 15 GM/60 ML PO SCH ×3 (09:12→22:25)
[2020-07-17] MEDS: MORPHINE SULFATE 2 MG INJ IV PRN ×2 (09:15→14:45)
[2020-07-17] MEDS ORDERED: PHENERGAN 25 MG PO PRN (09:40)
[2020-07-17] MEDS ORDERED: ZOFRAN ODT 4 MG PO PRN (09:40)
[2020-07-17] MEDS ORDERED: Colace 100 MG PO PRN (09:40)
[2020-07-17] MEDS ORDERED: NON-FORMULARY ITEM (Hydroxyzine Hcl [Hydroxyzine Hcl] 10 MG) PO SCH (10:00)
[2020-07-17] MEDS ORDERED: NON-FORMULARY ITEM (Omeprazole 20 Mg [Prilosec 20 Mg] 20 MG) PO SCH (10:00)
[2020-07-17] MEDS ORDERED: GABAPENTIN 400 MG PO SCH (10:00)
[2020-07-17] MEDS ORDERED: NON-FORMULARY ITEM (Apixaban [Eliquis] 5 MG) PO SCH (10:00)
[2020-07-17] MEDS ORDERED: INSULIN LISPRO 10 UNIT SQ SCH (12:00)
[2020-07-17] MEDS: Norco 10/325 MG Tablet PO SCH ×2 (12:43→22:13)
[2020-07-17] MEDS: SYNTHROID 25 MCG PO SCH (12:43)
[2020-07-17] MEDS: Lopressor 25MG Tab PO SCH (12:43)
[2020-07-17] MEDS: Protonix 40MG Tablet PO SCH (12:43)
[2020-07-17] MEDS: FEOSOL 325 MG PO SCH ×2 (12:43→22:13)
[2020-07-17] MEDS: Cymbalta 30 MG Capsule PO SCH ×2 (12:43→22:13)
[2020-07-17] MEDS: Zestril 5 MG PO SCH (12:43)
[2020-07-17] MEDS: Neurontin 400 MG PO SCH ×3 (12:43→22:13)
[2020-07-17] MEDS: LACTULOSE 20 GM/30ML UD CUP PO SCH ×4 (12:44→22:46)
[2020-07-17] MEDS: NICODERM CQ 14 MG TD SCH (12:44)
[2020-07-17] MEDS: ATARAX 25 MG PO SCH ×2 (12:44→22:14)
[2020-07-17] MEDS: BUMEX 1 MG PO SCH ×2 (12:44→17:49)
[2020-07-17] MEDS: ELIQUIS 2.5 MG TABLET PO SCH ×2 (12:44→22:13)
[2020-07-17] MEDS: HUMALOG SQ SCH ×2 (12:45→17:49)
--- NOTE | 2020-07-17 13:31 | PCM.HP ---
History of Present Illness - Chief Complaint Chief Complaint: UTI, SOB, Ascites,Acute renal injury History of Present Illness: is a 55 year old female admitted through ER with exacerbation COPD and UTI. PMH Recent PE on Eliquis, Nonalcoholic cirrhosis with ascites ,IDDM2 with CKD stage3 . Patient requires peritoneal tap to remove ascitic fluid scheduled q [address] Back at [facility]. Patient developed sob and fatigue gradually wosening the day of admission. Medications & Allergies Home Medications: Home Medication List Duloxetine HCl 30 mg [Cymbalta 30 MG Capsule] 30 mg PO BID 11/17/12 [History Confirmed 07/16/20] Albuterol Sulfate [Proair Hfa] 2 puff IH Q4HPRN PRN 04/21/15 [History Confirmed 07/16/20] Omeprazole 20 MG [Prilosec 20 mg] 20 mg PO DAILY 04/21/15 [History Confirmed 07/17/20] Pravastatin Sodium [Pravachol] 10 mg PO HS 02/07/16 [History Confirmed 07/16/20] Gabapentin [Gralise] 400 mg PO TID 11/11/16 [History Confirmed 07/16/20] Docusate Sodium 100 mg [Colace 100 MG] 100 mg PO HSPRN PRN 01/18/19 [History Confirmed 07/16/20] Ergocalciferol (Vitamin D2) [Vitamin D] 50,000 units PO CHEW 01/18/19 [History Confirmed 07/16/20] Ferrous Sulfate 325 mg PO BID 01/18/19 [History Confirmed 07/16/20] Hydroxyzine HCl 10 mg PO BID 01/18/19 [History Confirmed 07/16/20] Levothyroxine Sodium 25 Mcg [Synthroid 25 Mcg] 25 mcg PO DAILY 01/18/19 [History Confirmed 07/16/20] Lisinopril 5 mg [Zestril 5 MG] 5 mg PO DAILY #90 tablet 01/21/19 [Rx Confirmed 07/16/20] Ondansetron ODT 4 MG [Zofran Odt 4 mg] 4 mg PO Q6H PRN PRN #10 tab.rapdis 07/11/19 [Rx Confirmed 07/16/20] Insulin Glargine [Lantus Insulin] 30 units SQ HS 09/27/19 [History Confirmed 07/16/20] Metoprolol Tartrate 25 mg [Lopressor 25MG Tab] 1 tab PO DAILY 09/27/19 [History Confirmed 07/16/20] Tiotropium [place] [Spiriva Respimat] 1 puff IH DAILY 10/14/19 [History Confirmed 07/16/20] Lactulose [Lactulose 20 gm/30Ml Ud Cup] 20 gm PO TID 10/29/19 [History Confirmed 07/16/20] Insulin Lispro [Humalog Kwikpen U-100] 10 unit SQ TIDWMEALS 03/27/20 [History Confirmed 07/16/20] Promethazine HCl 25 mg [Phenergan 25 mg] 25 mg PO Q6HPRN PRN 03/27/20 [History Confirmed 07/17/20] Hydrocodone/Acetaminophen [Hydrocodone-Acetamin 10-325 mg] 1 ea PO BID 06/01/20 [History Confirmed 07/16/20] Apixaban [Eliquis] 5 mg PO BID 06/21/20 [History Confirmed 07/16/20] Nicotine 14 mg [Nicoderm Cq 14 mg] 14 mg TD Q24H 06/21/20 [History Confirmed 07/17/20] Albuterol 2.5 mg/3 ml Neb [Proventil 2.5 mg/3 ml Neb] 1 ampul IH QID PRN 07/16/20 [History Confirmed 07/16/20] Bumetanide 1 mg [Bumex 1 mg] 1 mg PO BID 07/16/20 [History Confirmed 07/17/20] Allergies/Adverse Reactions: Allergies Allergy/AdvReac Type Severity Reaction Status Date / Time adhesive tape Allergy Mild Verified 07/16/20 17:53 clindamycin AdvReac Skin Verified 07/16/20 17:53 Irritation bee stings Allergy Mild Anaphylactic Uncoded 07/16/20 17:53 Reaction - Past Medical History Past Medical History: Yes Neurological History: No Pertinent History ENT History: No Pertinent History Cardiac History: Hypertension Respiratory History: Asthma, COPD, Pneumonia, Pulmonary Embolism Endocrine Medical History: Diabetes Type II, Hypoglycemia, Hypothyroidism Musculoskelatal History: Fractures GI Medical History: GERD, Other History: Renal Disease Pyscho-Social History: Anxiety, Depression Reproductive Disorders: No Pertinent History Comment: left ankle fx with mult surgeries, in February 2019 bka,. ascites. fatty liver - Female History Are you now?: No - Past Surgical History Past Surgical History: Yes Neuro Surgical History: No Pertinent History Cardiac History: No Pertinent History Respiratory Surgery: No Pertinent History GI Surgical History: Cholecystectomy, Exploratory Laparoscopy Genitourinary Surgical Hx: No Pertinent History Musculskeletal Surgical Hx: Amputation Female Surgical History: Section, Hysterectomy Other Surgical History: foot surgery, screw placed in left big toe, removal, and antibiotic bead placement. mult lt foot surgeries. LT BKA February 2019 - Social History Smoking Status: Current every day smoker How long have you smoked: 30+ Exposure to second hand smoke: Yes Alcohol: None Drug Use: none Significant Family History: no pertinent family hx - Physical Exam Vital Signs: Vital Signs - 24 hr Temp Pulse Resp BP Pulse Ox 07/17/20 12:00 97.6 F 98 H 19 118/64 99 07/17/20 07:47 98.1 F 94 H 20 111/52 100 07/17/20 07:05 85 16 99 07/17/20 04:00 97.8 F 96 H 18 135/56 99 07/16/20 23:45 93 H 20 95 07/16/20 22:46 97.9 F 96 H 18 112/56 99 07/16/20 22:02 99 07/16/20 21:09 95 H 17 105/61 97 07/16/20 20:29 94 H 20 97 07/16/20 20:10 99 H 18 106/60 99 07/16/20 19:16 102 H 21 101/57 95 07/16/20 18:03 99 07/16/20 17:53 97.9 F 112 H 28 H 107/86 99 General Appearance: no apparent distress Neurologic Exam: alert, 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, cooperative, normal mood/affect Eye Exam: PERRL/EOMI, eyes nml inspection Ears, Nose, Throat Exam: normal ENT inspection, moist mucous membranes Neck Exam: normal inspection Respiratory Exam: diminished breath sounds, wheezing (scattered eew) Cardiovascular Exam: regular rate/rhythm Gastrointestinal/Abdomen Exam: normal bowel sounds (due to ascitic fluid), distention (due to ascitic waves), hepatomegaly, other Extremity Exam: calf tenderness Skin Exam: warm, dry, pale Results - Labs Lab/Micro Results: Lab Results-Last 24 Hours 07/16/20 07/16/20 07/16/20 Range/Units 17:59 18:05 18:05 WBC 17.1 H (4.0-10.5) K/mm3 RBC 3.49 L (4.1-5.4) M/mm3 Hgb 10.0 L (12.0-16.0) gm/dl Hct 30.3 L (35-47) % MCV 86.8 (78-100) fl MCH 28.7 (26-32) pg MCHC 33.0 (32-36) g/dl RDW 17.2 H (11.5-14.0) % Plt Count 204 (150-450) K/mm3 MPV 9.2 (7.5-11.0) fl Gran % 86.2 H (36.0-66.0) % Eos # (Auto) 0.23 (0-0.5) Absolute Lymphs (auto) 1.41 (1.0-4.6) Absolute Monos (auto) 0.70 (0.0-1.3) Lymphocytes % 8.3 L (24.0-44.0) % Monocytes % 4.1 (0.0-12.0) % Eosinophils % 1.3 (0.00-5.0) % Basophils % 0.1 (0.0-0.4) % Absolute Granulocytes 14.71 H (1.4-6.9) Basophils # 0.02 (0-0.4) Sodium 131 L (137-145) mmol/L Potassium 4.5 (3.5-5.1) mmol/L Chloride 105 (98-107) mmol/L Carbon Dioxide 19 L (22-30) mmol/L Anion Gap 11.5 (5-15) MEQ/L BUN 27 H (7-17) mg/dL Creatinine 1.72 H (0.52-1.04) mg/dL Estimated GFR 33.0 ML/MIN Glucose 157 H (74-106) mg/dL POC Glucometer (74 to 106) mg/dL Calcium 8.0 L (8.4-10.2) mg/dL Magnesium 1.6 (1.6-2.3) mg/dL Total Bilirubin 0.30 (0.2-1.3) mg/dL AST 24 (14-36) U/L ALT 11 (0-35) U/L Alkaline Phosphatase 203 H (38-126) U/L Troponin I (0.000-0.034) ng/mL NT-Pro-B Natriuret Pep (0-900) pg/mL Serum Total Protein 6.6 (6.3-8.2) g/dL Albumin 2.8 L (3.5-5.0) g/dL 25-OH Vitamin D Total (30-100) ng/mL Urine Color YELLOW (YELLOW) Urine Appearance SLIGHTLY CLOUDY (CLEAR) Urine pH 5.0 (5-6) Ur Specific [place] 1.012 (1.005-1.025) Urine Protein 30 (Negative) Urine Ketones NEGATIVE (NEGATIVE) Urine Blood MODERATE (0-5) Ubaldo/ul Urine Nitrite NEGATIVE (NEGATIVE) Urine Bilirubin NEGATIVE (NEGATIVE) Urine Urobilinogen NEGATIVE (0-1) mg/dL Ur Leukocyte Esterase SMALL (NEGATIVE) Urine WBC (Auto) 16-25 (0-5) /HPF Urine RBC (Auto) 26-50 (0-2) /HPF U Epithel Cells (Auto) RARE (FEW) /HPF Urine Bacteria (Auto) NONE (NEGATIVE) /HPF Urine Mucus (Auto) SLIGHT (NEGATIVE) /HPF Urine Culture Reflexed YES (NO) Urine Glucose NEGATIVE (NEGATIVE) mg/dL SARS-CoV-2 (PCR) (NEGATIVE) 07/16/20 07/16/20 07/16/20 Range/Units 18:05 19:30 19:30 WBC (4.0-10.5) K/mm3 RBC (4.1-5.4) M/mm3 Hgb (12.0-16.0) gm/dl Hct (35-47) % MCV (78-100) fl MCH (26-32) pg MCHC (32-36) g/dl RDW (11.5-14.0) % Plt Count (150-450) K/mm3 MPV (7.5-11.0) fl Gran % (36.0-66.0) % Eos # (Auto) (0-0.5) Absolute Lymphs (auto) (1.0-4.6) Absolute Monos (auto) (0.0-1.3) Lymphocytes % (24.0-44.0) % Monocytes % (0.0-12.0) % Eosinophils % (0.00-5.0) % Basophils % (0.0-0.4) % Absolute Granulocytes (1.4-6.9) Basophils # (0-0.4) Sodium (137-145) mmol/L Potassium (3.5-5.1) mmol/L Chloride (98-107) mmol/L Carbon Dioxide (22-30) mmol/L Anion Gap (5-15) MEQ/L BUN (7-17) mg/dL Creatinine (0.52-1.04) mg/dL Estimated GFR ML/MIN Glucose (74-106) mg/dL POC Glucometer (74 to 106) mg/dL Calcium (8.4-10.2) mg/dL Magnesium (1.6-2.3) mg/dL Total Bilirubin (0.2-1.3) mg/dL AST (14-36) U/L ALT (0-35) U/L Alkaline Phosphatase (38-126) U/L Troponin I < 0.012 < 0.012 (0.000-0.034) ng/mL NT-Pro-B Natriuret Pep 341 (0-900) pg/mL Serum Total Protein (6.3-8.2) g/dL Albumin (3.5-5.0) g/dL 25-OH Vitamin D Total (30-100) ng/mL Urine Color (YELLOW) Urine Appearance (CLEAR) Urine pH (5-6) Ur Specific [place] (1.005-1.025) Urine Protein (Negative) Urine Ketones (NEGATIVE) Urine Blood (0-5) Ubaldo/ul Urine Nitrite (NEGATIVE) Urine Bilirubin (NEGATIVE) Urine Urobilinogen (0-1) mg/dL Ur Leukocyte Esterase (NEGATIVE) Urine WBC (Auto) (0-5) /HPF Urine RBC (Auto) (0-2) /HPF U Epithel Cells (Auto) (FEW) /HPF Urine Bacteria (Auto) (NEGATIVE) /HPF Urine Mucus (Auto) (NEGATIVE) /HPF Urine Culture Reflexed (NO) Urine Glucose (NEGATIVE) mg/dL SARS-CoV-2 (PCR) (NEGATIVE) 07/16/20 07/17/20 07/17/20 Range/Units 20:32 01:00 03:30 WBC (4.0-10.5) K/mm3 RBC (4.1-5.4) M/mm3 Hgb (12.0-16.0) gm/dl Hct (35-47) % MCV (78-100) fl MCH (26-32) pg MCHC (32-36) g/dl RDW (11.5-14.0) % Plt Count (150-450) K/mm3 MPV (7.5-11.0) fl Gran % (36.0-66.0) % Eos # (Auto) (0-0.5) Absolute Lymphs (auto) (1.0-4.6) Absolute Monos (auto) (0.0-1.3) Lymphocytes % (24.0-44.0) % Monocytes % (0.0-12.0) % Eosinophils % (0.00-5.0) % Basophils % (0.0-0.4) % Absolute Granulocytes (1.4-6.9) Basophils # (0-0.4) Sodium (137-145) mmol/L Potassium (3.5-5.1) mmol/L Chloride (98-107) mmol/L Carbon Dioxide (22-30) mmol/L Anion Gap (5-15) MEQ/L BUN (7-17) mg/dL Creatinine (0.52-1.04) mg/dL Estimated GFR ML/MIN Glucose (74-106) mg/dL POC Glucometer (74 to 106) mg/dL Calcium (8.4-10.2) mg/dL Magnesium (1.6-2.3) mg/dL Total Bilirubin (0.2-1.3) mg/dL AST (14-36) U/L ALT (0-35) U/L Alkaline Phosphatase (38-126) U/L Troponin I < 0.012 < 0.012 (0.000-0.034) ng/mL NT-Pro-B Natriuret Pep (0-900) pg/mL Serum Total Protein (6.3-8.2) g/dL Albumin (3.5-5.0) g/dL 25-OH Vitamin D Total (30-100) ng/mL Urine Color (YELLOW) Urine Appearance (CLEAR) Urine pH (5-6) Ur Specific [place] (1.005-1.025) Urine Protein (Negative) Urine Ketones (NEGATIVE) Urine Blood (0-5) Ubaldo/ul Urine Nitrite (NEGATIVE) Urine Bilirubin (NEGATIVE) Urine Urobilinogen (0-1) mg/dL Ur Leukocyte Esterase (NEGATIVE) Urine WBC (Auto) (0-5) /HPF Urine RBC (Auto) (0-2) /HPF U Epithel Cells (Auto) (FEW) /HPF Urine Bacteria (Auto) (NEGATIVE) /HPF Urine Mucus (Auto) (NEGATIVE) /HPF Urine Culture Reflexed (NO) Urine Glucose (NEGATIVE) mg/dL SARS-CoV-2 (PCR) NEGATIVE (NEGATIVE) 07/17/20 07/17/20 07/17/20 Range/Units 03:30 03:30 06:00 WBC 13.4 H (4.0-10.5) K/mm3 RBC 3.26 L (4.1-5.4) M/mm3 Hgb 9.2 L (12.0-16.0) gm/dl Hct 28.9 L (35-47) % MCV 88.7 (78-100) fl MCH 28.2 (26-32) pg MCHC 31.8 L (32-36) g/dl RDW 17.4 H (11.5-14.0) % Plt Count 175 (150-450) K/mm3 MPV 9.6 (7.5-11.0) fl Gran % 76.5 H (36.0-66.0) % Eos # (Auto) 0.23 (0-0.5) Absolute Lymphs (auto) 2.05 (1.0-4.6) Absolute Monos (auto) 0.84 (0.0-1.3) Lymphocytes % 15.3 L (24.0-44.0) % Monocytes % 6.3 (0.0-12.0) % Eosinophils % 1.7 (0.00-5.0) % Basophils % 0.2 (0.0-0.4) % Absolute Granulocytes 10.27 H (1.4-6.9) Basophils # 0.03 (0-0.4) Sodium 129 L (137-145) mmol/L Potassium 5.7 H D (3.5-5.1) mmol/L Chloride 104 (98-107) mmol/L Carbon Dioxide 19 L (22-30) mmol/L Anion Gap 11.1 (5-15) MEQ/L BUN 32 H (7-17) mg/dL Creatinine 1.88 H (0.52-1.04) mg/dL Estimated GFR 29.8 ML/MIN Glucose 171 H (74-106) mg/dL POC Glucometer (74 to 106) mg/dL Calcium 7.8 L (8.4-10.2) mg/dL Magnesium (1.6-2.3) mg/dL Total Bilirubin 0.30 (0.2-1.3) mg/dL AST 25 (14-36) U/L ALT 9 (0-35) U/L Alkaline Phosphatase 178 H (38-126) U/L Troponin I (0.000-0.034) ng/mL NT-Pro-B Natriuret Pep (0-900) pg/mL Serum Total Protein 6.1 L (6.3-8.2) g/dL Albumin 2.7 L (3.5-5.0) g/dL 25-OH Vitamin D Total 26.1 L (30-100) ng/mL Urine Color (YELLOW) Urine Appearance (CLEAR) Urine pH (5-6) Ur Specific [place] (1.005-1.025) Urine Protein (Negative) Urine Ketones (NEGATIVE) Urine Blood (0-5) Ubaldo/ul Urine Nitrite (NEGATIVE) Urine Bilirubin (NEGATIVE) Urine Urobilinogen (0-1) mg/dL Ur Leukocyte Esterase (NEGATIVE) Urine WBC (Auto) (0-5) /HPF Urine RBC (Auto) (0-2) /HPF U Epithel Cells (Auto) (FEW) /HPF Urine Bacteria (Auto) (NEGATIVE) /HPF Urine Mucus (Auto) (NEGATIVE) /HPF Urine Culture Reflexed (NO) Urine Glucose (NEGATIVE) mg/dL SARS-CoV-2 (PCR) (NEGATIVE) 07/17/20 07/17/20 07/17/20 Range/Units 06:10 07:23 11:51 WBC (4.0-10.5) K/mm3 RBC (4.1-5.4) M/mm3 Hgb (12.0-16.0) gm/dl Hct (35-47) % MCV (78-100) fl MCH (26-32) pg MCHC (32-36) g/dl RDW (11.5-14.0) % Plt Count (150-450) K/mm3 MPV (7.5-11.0) fl Gran % (36.0-66.0) % Eos # (Auto) (0-0.5) Absolute Lymphs (auto) (1.0-4.6) Absolute Monos (auto) (0.0-1.3) Lymphocytes % (24.0-44.0) % Monocytes % (0.0-12.0) % Eosinophils % (0.00-5.0) % Basophils % (0.0-0.4) % Absolute Granulocytes (1.4-6.9) Basophils # (0-0.4) Sodium (137-145) mmol/L Potassium (3.5-5.1) mmol/L Chloride (98-107) mmol/L Carbon Dioxide (22-30) mmol/L Anion Gap (5-15) MEQ/L BUN (7-17) mg/dL Creatinine (0.52-1.04) mg/dL Estimated GFR ML/MIN Glucose (74-106) mg/dL POC Glucometer 133 H 170 H (74 to 106) mg/dL Calcium (8.4-10.2) mg/dL Magnesium (1.6-2.3) mg/dL Total Bilirubin (0.2-1.3) mg/dL AST (14-36) U/L ALT (0-35) U/L Alkaline Phosphatase (38-126) U/L Troponin I < 0.012 (0.000-0.034) ng/mL NT-Pro-B Natriuret Pep (0-900) pg/mL Serum Total Protein (6.3-8.2) g/dL Albumin (3.5-5.0) g/dL 25-OH Vitamin D Total (30-100) ng/mL Urine Color (YELLOW) Urine Appearance (CLEAR) Urine pH (5-6) Ur Specific [place] (1.005-1.025) Urine Protein (Negative) Urine Ketones (NEGATIVE) Urine Blood (0-5) Ubaldo/ul Urine Nitrite (NEGATIVE) Urine Bilirubin (NEGATIVE) Urine Urobilinogen (0-1) mg/dL Ur Leukocyte Esterase (NEGATIVE) Urine WBC (Auto) (0-5) /HPF Urine RBC (Auto) (0-2) /HPF U Epithel Cells (Auto) (FEW) /HPF Urine Bacteria (Auto) (NEGATIVE) /HPF Urine Mucus (Auto) (NEGATIVE) /HPF Urine Culture Reflexed (NO) Urine Glucose (NEGATIVE) mg/dL SARS-CoV-2 (PCR) (NEGATIVE) Microbiology 07/16/20 17:59 Urine Culture - Preliminary Clean Catch Midstream GRAM NEGATIVE ID AND SENSITIVITY PENDING Accuchecks Date 07/17/20 Date 07/17/20 - Radiology Impressions Radiology Exams & Impressions: Radiology Procedures Category Date Time Status CHEST 1 VIEW (PORTABLE) Stat Exams 07/16/20 18:04 Completed - Other Procedures and Tests Respiratory Therapy 07/16/20 20:44 Respiratory Therapy Assessment DAILY 07/16/20 23:53 Oxygen Nasal Cannula 2 lpm Assessment/Plan (1) COPD exacerbation Current Visit: Yes Status: Acute Assessment & Plan: Neb tx albuterol,Resp Tech to moniter O2 sats and O2,IV Rocephin,. consider IV solumedrol Code(s): J44.1 - CHRONIC OBSTRUCTIVE PULMONARY DISEASE W (ACUTE) EXACERBATION (2) UTI (urinary tract infection) Current Visit: No Status: Acute Qualifiers: Indwelling urinary catheter type: unspecified Assessment & Plan: on IV Rocephin with WBC improved Code(s): N39.0 - URINARY TRACT INFECTION, SITE NOT SPECIFIED (3) Ascites Current Visit: No Status: Chronic Qualifiers: Ascites type: other type Qualified Code(s): R18.8 - Other ascites Assessment & Plan: cirrhosis nonalcoholic,fatty liver Code(s): R18.8 - OTHER ASCITES (4) Hx pulmonary embolism Current Visit: Yes Status: Chronic Assessment & Plan: maintain Eliquis Code(s): Z86.711 - PERSONAL HISTORY OF PULMONARY EMBOLISM (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
[2020-07-17] MEDS ORDERED: NON-FORMULARY ITEM (Pravastatin Sodium [Pravachol] 10 MG) PO SCH (22:00)
[2020-07-17] MEDS: ROCEPHIN 1 Gm-D5w 50 ml Bag** 1 G/50 ML IVPB IV SCH (22:12)
[2020-07-17] MEDS: Zocor 10MG PO SCH (22:13)
[2020-07-17] MEDS: Lantus Insulin SQ SCH ×2 (22:36→23:07)
[2020-07-18] MEDS: MORPHINE SULFATE 2 MG INJ IV PRN ×2 (04:58→16:32)
[2020-07-18 05:40] LABS: Absolute Neutrophil Ct (ANC) 9.18 (1.4-6.9); BASOPHIL % 0.2 % (0.0-0.4); Basophil (Absolute #) 0.03 (0-0.4); Eosinophil % 2.4 % (0.00-5.0); Hematocrit 27.4 % (35-47); Hemoglobin 8.8 gm/dl (12.0-16.0); Lymphocytes % 15.8 % (24.0-44.0); Mean Cell Volume 89.3 fl (78-100); Mean Corpuscular Hemoglobin 28.7 pg (26-32); Mean Corpuscular Hgb Concent. 32.1 g/dl (32-36); Mean Platelet Volume 9.1 fl (7.5-11.0); Monocyte (Absolute #) 1.16 (0.0-1.3); Monocytes % 9.2 % (0.0-12.0); Neutrophil % 72.4 % (36.0-66.0); Platelet Count 183 K/mm3 (150-450); Red Blood Count 3.07 M/mm3 (4.1-5.4); Red Cell Distribution Width 17.2 % (11.5-14.0); White Blood Count 12.7 K/mm3 (4.0-10.5)
[2020-07-18 06:05] LABS: ALBUMIN 2.6 g/dL (3.5-5.0); ANION GAP 11.1 MEQ/L (5-15); BILIRUBIN,TOTAL 0.2 mg/dL (0.2-1.3); Calcium 7.7 mg/dL (8.4-10.2); Creatinine 1 2.43 mg/dL (0.52-1.04); EST GLOMERULAR FILTRATION RATE 22.1 ML/MIN; Total Protein 5.9 g/dL (6.3-8.2)
[2020-07-18 06:10] LABS: Potassium 6.2 mmol/L (3.5-5.1)
[2020-07-18] MEDS ORDERED: Kayexylate 15 GM/60 ML PO ONE (06:32)
[2020-07-18] MEDS: PROVENTIL 2.5 MG/3 ML NEB IH SCH ×4 (07:06→19:33)
[2020-07-18] MEDS: Spiriva 18 Mcg/Cap Inhaler IH SCH (07:06)
[2020-07-18] MEDS: HUMALOG SQ SCH ×3 (09:10→17:31)
--- NOTE | 2020-07-18 10:19 | PCM.NOTE ---
Date and Time: 07/18/20 1015 Subjective Assessment: Pt notes feeling rough, but breathing is better. - Review of Systems Constitutional: Fatigue Eyes: No Symptoms Ears, Nose, & Throat: No Symptoms Respiratory: Cough, Short Of Breath Cardiac: No Symptoms Abdominal/Gastrointestinal: No Symptoms, Nausea Genitourinary Symptoms: No Symptoms Musculoskeletal: No Symptoms Skin: No Symptoms Objective Exam General Appearance: no apparent distress Neurologic Exam: alert, cooperative Skin Exam: normal color, warm, dry, No rash Eye Exam: eyes nml inspection Ears, Nose, Throat Exam: normal ENT inspection Neck Exam: normal inspection, non-tender, supple Respiratory Exam: normal breath sounds, diminished breath sounds, No chest tenderness Cardiovascular Exam: regular rate/rhythm, normal heart sounds Gastrointestinal/Abdomen Exam: distention Extremity Exam: normal inspection Pelvic Exam: deferred OBJECTIVE DATA Vital Signs: Vital Signs - 24 hr Temp Pulse Resp BP Pulse Ox 07/18/20 07:16 98.4 F 82 18 107/59 86 L 07/18/20 07:08 87 21 93 L 07/18/20 04:00 97.9 F 77 16 95/51 96 07/18/20 00:00 98.3 F 89 15 122/57 98 07/17/20 20:00 97.9 F 95 H 14 103/53 100 07/17/20 19:24 88 18 90 L 07/17/20 16:00 98.4 F 94 H 20 120/58 98 07/17/20 14:17 104 H 18 92 L 07/17/20 12:00 97.6 F 98 H 19 118/64 99 07/17/20 11:15 97 H 16 95 Pain Assessment - Last Documented Pain Intensity 6 Pain Scale Used 0-10 Pain Scale Intake and Output: Intake & Output 07/15/20 07/16/20 07/17/20 07/18/20 11:59 11:59 11:59 11:59 Intake Total 840 120 Output Total 300 550 Balance 540 -430 Weight 92.9 kg Lab Results: Lab Results-Last 24 Hours 07/17/20 07/17/20 07/17/20 Range/Units 11:51 15:46 20:41 WBC (4.0-10.5) K/mm3 RBC (4.1-5.4) M/mm3 Hgb (12.0-16.0) gm/dl Hct (35-47) % MCV (78-100) fl MCH (26-32) pg MCHC (32-36) g/dl RDW (11.5-14.0) % Plt Count (150-450) K/mm3 MPV (7.5-11.0) fl Gran % (36.0-66.0) % Eos # (Auto) (0-0.5) Absolute Lymphs (auto) (1.0-4.6) Absolute Monos (auto) (0.0-1.3) Lymphocytes % (24.0-44.0) % Monocytes % (0.0-12.0) % Eosinophils % (0.00-5.0) % Basophils % (0.0-0.4) % Absolute Granulocytes (1.4-6.9) Basophils # (0-0.4) Sodium (137-145) mmol/L Potassium (3.5-5.1) mmol/L Chloride (98-107) mmol/L Carbon Dioxide (22-30) mmol/L Anion Gap (5-15) MEQ/L BUN (7-17) mg/dL Creatinine (0.52-1.04) mg/dL Estimated GFR ML/MIN Glucose (74-106) mg/dL POC Glucometer 170 H 121 H 56 L (74 to 106) mg/dL Calcium (8.4-10.2) mg/dL Total Bilirubin (0.2-1.3) mg/dL AST (14-36) U/L ALT (0-35) U/L Alkaline Phosphatase (38-126) U/L Serum Total Protein (6.3-8.2) g/dL Albumin (3.5-5.0) g/dL 07/17/20 07/18/20 07/18/20 Range/Units 22:37 05:35 05:35 WBC 12.7 H (4.0-10.5) K/mm3 RBC 3.07 L (4.1-5.4) M/mm3 Hgb 8.8 L (12.0-16.0) gm/dl Hct 27.4 L (35-47) % MCV 89.3 (78-100) fl MCH 28.7 (26-32) pg MCHC 32.1 (32-36) g/dl RDW 17.2 H (11.5-14.0) % Plt Count 183 (150-450) K/mm3 MPV 9.1 (7.5-11.0) fl Gran % 72.4 H (36.0-66.0) % Eos # (Auto) 0.30 (0-0.5) Absolute Lymphs (auto) 2.00 (1.0-4.6) Absolute Monos (auto) 1.16 (0.0-1.3) Lymphocytes % 15.8 L (24.0-44.0) % Monocytes % 9.2 (0.0-12.0) % Eosinophils % 2.4 (0.00-5.0) % Basophils % 0.2 (0.0-0.4) % Absolute Granulocytes 9.18 H (1.4-6.9) Basophils # 0.03 (0-0.4) Sodium 132 L (137-145) mmol/L Potassium 6.2 H* (3.5-5.1) mmol/L Chloride 104 (98-107) mmol/L Carbon Dioxide 23 (22-30) mmol/L Anion Gap 11.1 (5-15) MEQ/L BUN 43 H (7-17) mg/dL Creatinine 2.43 H (0.52-1.04) mg/dL Estimated GFR 22.1 ML/MIN Glucose 134 H (74-106) mg/dL POC Glucometer 200 H (74 to 106) mg/dL Calcium 7.7 L (8.4-10.2) mg/dL Total Bilirubin 0.20 (0.2-1.3) mg/dL AST 26 (14-36) U/L ALT 10 (0-35) U/L Alkaline Phosphatase 178 H (38-126) U/L Serum Total Protein 5.9 L (6.3-8.2) g/dL Albumin 2.6 L (3.5-5.0) g/dL Radiology Exams: Radiology Procedures Category Date Time Status CHEST 1 VIEW (PORTABLE) Stat Exams 07/16/20 18:04 Completed Multi-Disciplinary Progress Notes: Multi-Disciplinary Progress Notes 07/17/20 10:51 Case Management Note by Makenzie Simpson PATIENT HAS ELDERS JOURNEY WELL. THEY WERE NOTIFIED PATIENT IS HERE. THEY WILL NEED NOTIFIED WHEN PATIENT DCS HOME AT [phone]. THEY WILL ALSO NEED FAXED THE DC INSTRUCTIONS, DC MED LIST AND DC SUMMARY (IF AVAILABLE) TO [phone] Initialized on 07/17/20 10:51 - END OF NOTE Assessment/Plan (1) Hyperkalemia, diminished renal excretion Current Visit: Yes Status: Acute Assessment & Plan: will adjust hydration, pt. has received kaexylate will give NS and lasix recheck in the am. Code(s): E87.5 - HYPERKALEMIA (2) COPD exacerbation Current Visit: Yes Status: Acute Assessment & Plan: subjectively improved Code(s): J44.1 - CHRONIC OBSTRUCTIVE PULMONARY DISEASE W (ACUTE) EXACERBATION (3) Abdominal ascites Current Visit: Yes Status: Chronic Qualifiers: Assessment & Plan: no plan or change at this time. Code(s): R18.8 - OTHER ASCITES
[2020-07-18] MEDS ORDERED: AlbuRx 25% 50ML VIAL*** 50 ML in Sodium Chloride 0.9% 250 ML 200 ML IV SCH (10:30)
[2020-07-18] MEDS: Norco 10/325 MG Tablet PO SCH ×2 (10:38→21:27)
[2020-07-18] MEDS: BUMEX 1 MG PO SCH ×2 (10:38→16:32)
[2020-07-18] MEDS: Neurontin 400 MG PO SCH ×3 (10:38→21:28)
[2020-07-18] MEDS: Lopressor 25MG Tab PO SCH (10:39)
[2020-07-18] MEDS: ATARAX 25 MG PO SCH ×2 (10:39→21:28)
[2020-07-18] MEDS: ELIQUIS 2.5 MG TABLET PO SCH ×2 (10:39→21:28)
[2020-07-18] MEDS: Cymbalta 30 MG Capsule PO SCH ×2 (10:40→21:28)
[2020-07-18] MEDS: FEOSOL 325 MG PO SCH ×2 (10:40→21:28)
[2020-07-18] MEDS: SYNTHROID 25 MCG PO SCH (10:40)
[2020-07-18] MEDS: NICODERM CQ 14 MG TD SCH (10:40)
[2020-07-18] MEDS: Protonix 40MG Tablet PO SCH (10:40)
[2020-07-18] MEDS: Zestril 5 MG PO SCH (10:40)
[2020-07-18] MEDS: LACTULOSE 20 GM/30ML UD CUP PO SCH ×3 (10:41→21:49)
[2020-07-18] MEDS: Lasix 20 MG/2 ML IV SCH (16:32)
[2020-07-18] MEDS: Zocor 10MG PO SCH (21:28)
[2020-07-18] MEDS: ROCEPHIN 1 Gm-D5w 50 ml Bag** 1 G/50 ML IVPB IV SCH (21:29)
[2020-07-18] MEDS: Lantus Insulin SQ SCH (21:35)
[2020-07-19] MEDS ORDERED: Sodium Chloride 0.9% 1000 ML 1,000 ML ONE (01:29)
[2020-07-19 06:45] LABS: Absolute Neutrophil Ct (ANC) 8.03 (1.4-6.9); BASOPHIL % 0.5 % (0.0-0.4); Basophil (Absolute #) 0.05 (0-0.4); Eosinophil % 2.6 % (0.00-5.0); Eosinophil (Absolute #) 0.28 (0-0.5); Hematocrit 27.8 % (35-47); Hemoglobin 9.1 gm/dl (12.0-16.0); Lymphocyte (Absolute #) 1.73 (1.0-4.6); Mean Corpuscular Hemoglobin 29.4 pg (26-32); Mean Corpuscular Hgb Concent. 32.7 g/dl (32-36); Mean Platelet Volume 9.9 fl (7.5-11.0); Monocyte (Absolute #) 0.74 (0.0-1.3); Monocytes % 6.8 % (0.0-12.0); Neutrophil % 74.1 % (36.0-66.0); Platelet Count 159 K/mm3 (150-450); Red Blood Count 3.09 M/mm3 (4.1-5.4); Red Cell Distribution Width 16.9 % (11.5-14.0); White Blood Count 10.8 K/mm3 (4.0-10.5)
[2020-07-19] MEDS: Spiriva 18 Mcg/Cap Inhaler IH SCH (07:08)
[2020-07-19] MEDS: PROVENTIL 2.5 MG/3 ML NEB IH SCH ×4 (07:08→19:37)
[2020-07-19 07:12] LABS: ALBUMIN 2.5 g/dL (3.5-5.0); ANION GAP 10.8 MEQ/L (5-15); BILIRUBIN,TOTAL 0.3 mg/dL (0.2-1.3); Calcium 7.2 mg/dL (8.4-10.2); Creatinine 1 2.21 mg/dL (0.52-1.04); EST GLOMERULAR FILTRATION RATE 24.7 ML/MIN; Potassium 5.4 mmol/L (3.5-5.1); Total Protein 5.7 g/dL (6.3-8.2)
[2020-07-19] MEDS ORDERED: Sodium Chloride 0.9% 1000 ML 1,000 ML IV SCH (08:00)
[2020-07-19] MEDS: HUMALOG SQ SCH ×3 (08:14→17:15)
[2020-07-19] MEDS ORDERED: VITAMIN D2 PO SCH (10:00)
[2020-07-19] MEDS: Neurontin 400 MG PO SCH ×2 (10:05→16:11)
[2020-07-19] MEDS: SYNTHROID 25 MCG PO SCH (10:05)
[2020-07-19] MEDS: ELIQUIS 2.5 MG TABLET PO SCH (10:05)
[2020-07-19] MEDS: Cymbalta 30 MG Capsule PO SCH (10:05)
[2020-07-19] MEDS: Protonix 40MG Tablet PO SCH (10:05)
[2020-07-19] MEDS: ATARAX 25 MG PO SCH (10:05)
[2020-07-19] MEDS: FEOSOL 325 MG PO SCH (10:06)
[2020-07-19] MEDS: NICODERM CQ 14 MG TD SCH (10:07)
[2020-07-19] MEDS: LACTULOSE 20 GM/30ML UD CUP PO SCH ×2 (10:07→16:11)
[2020-07-19] MEDS: Lopressor 25MG Tab PO SCH (10:08)
[2020-07-19] MEDS: Lasix 20 MG/2 ML IV SCH ×2 (10:08→10:41)
[2020-07-19] MEDS: Norco 10/325 MG Tablet PO SCH ×3 (10:08→16:15)
[2020-07-19] MEDS: Zestril 5 MG PO SCH (10:08)
[2020-07-19] MEDS: BUMEX 1 MG PO SCH ×2 (10:09→17:13)
--- NOTE | 2020-07-19 11:07 | PCM.NOTE ---
Date and Time: 07/19/20 1103 Subjective Assessment: Pt. notes hurts all over, abdomen seems more distended her kidney function seems more so today, her lungs are not as clear either. Pt. also noted to be slightly non symptomatic hypotension, we will hold bp medication - Review of Systems Constitutional: Malaise Eyes: No Symptoms Ears, Nose, & Throat: No Symptoms Respiratory: Cough, Short Of Breath Cardiac: No Symptoms Abdominal/Gastrointestinal: No Symptoms Genitourinary Symptoms: No Symptoms Musculoskeletal: No Symptoms Skin: No Symptoms Endocrine: No Symptoms Immunological/Allergic: No Symptoms Objective Exam General Appearance: no apparent distress Neurologic Exam: alert, cooperative Skin Exam: normal color, warm, dry, No rash Eye Exam: eyes nml inspection Ears, Nose, Throat Exam: normal ENT inspection Neck Exam: normal inspection Lymphatic Exam: No adenopathy Respiratory Exam: diminished breath sounds, rhonchi Cardiovascular Exam: regular rate/rhythm Gastrointestinal/Abdomen Exam: distention OBJECTIVE DATA Vital Signs: Vital Signs - 24 hr Temp Pulse Resp BP Pulse Ox 07/19/20 07:14 97.9 F 78 16 83/45 98 07/19/20 07:11 75 16 98 07/19/20 04:00 97.3 F 72 20 95/51 96 07/19/20 00:00 97.9 F 78 15 106/49 94 L 07/18/20 19:53 98.4 F 83 17 93/50 96 07/18/20 19:36 79 16 97 07/18/20 16:00 98.2 F 95 H 20 116/53 94 L 07/18/20 15:08 86 18 97 07/18/20 12:00 98.1 F 79 20 110/68 92 L Oxygen-Last 24 hours Oxygen Flowrate (L/min)-RT 2 Pain Assessment - Last Documented Pain Intensity 0 Pain Scale Used 0-10 Pain Scale Intake and Output: Intake & Output 07/16/20 07/17/20 07/18/20 07/19/20 11:59 11:59 11:59 11:59 Intake Total 593 867 8961 Output Total 300 550 Balance 540 -430 1757 Weight 92.9 kg Lab Results: Lab Results-Last 24 Hours 07/18/20 07/18/20 07/18/20 Range/Units 11:06 16:14 20:43 WBC (4.0-10.5) K/mm3 RBC (4.1-5.4) M/mm3 Hgb (12.0-16.0) gm/dl Hct (35-47) % MCV (78-100) fl MCH (26-32) pg MCHC (32-36) g/dl RDW (11.5-14.0) % Plt Count (150-450) K/mm3 MPV (7.5-11.0) fl Gran % (36.0-66.0) % Eos # (Auto) (0-0.5) Absolute Lymphs (auto) (1.0-4.6) Absolute Monos (auto) (0.0-1.3) Lymphocytes % (24.0-44.0) % Monocytes % (0.0-12.0) % Eosinophils % (0.00-5.0) % Basophils % (0.0-0.4) % Absolute Granulocytes (1.4-6.9) Basophils # (0-0.4) Sodium (137-145) mmol/L Potassium (3.5-5.1) mmol/L Chloride (98-107) mmol/L Carbon Dioxide (22-30) mmol/L Anion Gap (5-15) MEQ/L BUN (7-17) mg/dL Creatinine (0.52-1.04) mg/dL Estimated GFR ML/MIN Glucose (74-106) mg/dL POC Glucometer 112 H 169 H 78 (74 to 106) mg/dL Calcium (8.4-10.2) mg/dL Total Bilirubin (0.2-1.3) mg/dL AST (14-36) U/L ALT (0-35) U/L Alkaline Phosphatase (38-126) U/L Serum Total Protein (6.3-8.2) g/dL Albumin (3.5-5.0) g/dL 07/19/20 07/19/20 07/19/20 Range/Units 06:20 06:20 06:47 WBC 10.8 H (4.0-10.5) K/mm3 RBC 3.09 L (4.1-5.4) M/mm3 Hgb 9.1 L (12.0-16.0) gm/dl Hct 27.8 L (35-47) % MCV 90.0 (78-100) fl MCH 29.4 (26-32) pg MCHC 32.7 (32-36) g/dl RDW 16.9 H (11.5-14.0) % Plt Count 159 (150-450) K/mm3 MPV 9.9 (7.5-11.0) fl Gran % 74.1 H (36.0-66.0) % Eos # (Auto) 0.28 (0-0.5) Absolute Lymphs (auto) 1.73 (1.0-4.6) Absolute Monos (auto) 0.74 (0.0-1.3) Lymphocytes % 16.0 L (24.0-44.0) % Monocytes % 6.8 (0.0-12.0) % Eosinophils % 2.6 (0.00-5.0) % Basophils % 0.5 (0.0-0.4) % Absolute Granulocytes 8.03 H (1.4-6.9) Basophils # 0.05 (0-0.4) Sodium 129 L (137-145) mmol/L Potassium 5.4 H (3.5-5.1) mmol/L Chloride 105 (98-107) mmol/L Carbon Dioxide 19 L (22-30) mmol/L Anion Gap 10.8 (5-15) MEQ/L BUN 48 H (7-17) mg/dL Creatinine 2.21 H (0.52-1.04) mg/dL Estimated GFR 24.7 ML/MIN Glucose 88 (74-106) mg/dL POC Glucometer 86 (74 to 106) mg/dL Calcium 7.2 L (8.4-10.2) mg/dL Total Bilirubin 0.30 (0.2-1.3) mg/dL AST 40 H (14-36) U/L ALT 15 (0-35) U/L Alkaline Phosphatase 183 H (38-126) U/L Serum Total Protein 5.7 L (6.3-8.2) g/dL Albumin 2.5 L (3.5-5.0) g/dL /15/20 Range/Units 10:41 WBC (4.0-10.5) K/mm3 RBC (4.1-5.4) M/mm3 Hgb (12.0-16.0) gm/dl Hct (35-47) % MCV (78-100) fl MCH (26-32) pg MCHC (32-36) g/dl RDW (11.5-14.0) % Plt Count (150-450) K/mm3 MPV (7.5-11.0) fl Gran % (36.0-66.0) % Eos # (Auto) (0-0.5) Absolute Lymphs (auto) (1.0-4.6) Absolute Monos (auto) (0.0-1.3) Lymphocytes % (24.0-44.0) % Monocytes % (0.0-12.0) % Eosinophils % (0.00-5.0) % Basophils % (0.0-0.4) % Absolute Granulocytes (1.4-6.9) Basophils # (0-0.4) Sodium (137-145) mmol/L Potassium (3.5-5.1) mmol/L Chloride (98-107) mmol/L Carbon Dioxide (22-30) mmol/L Anion Gap (5-15) MEQ/L BUN (7-17) mg/dL Creatinine (0.52-1.04) mg/dL Estimated GFR ML/MIN Glucose (74-106) mg/dL POC Glucometer 100 (74 to 106) mg/dL Calcium (8.4-10.2) mg/dL Total Bilirubin (0.2-1.3) mg/dL AST (14-36) U/L ALT (0-35) U/L Alkaline Phosphatase (38-126) U/L Serum Total Protein (6.3-8.2) g/dL Albumin (3.5-5.0) g/dL Assessment/Plan (1) Hyperkalemia, diminished renal excretion Current Visit: Yes Status: Acute Assessment & Plan: improved down to 5.4, kidney function also improved, but now hypotensive. Code(s): E87.5 - HYPERKALEMIA (2) COPD exacerbation Current Visit: Yes Status: Acute Assessment & Plan: continue current treatment plan Code(s): J44.1 - CHRONIC OBSTRUCTIVE PULMONARY DISEASE W (ACUTE) EXACERBATION (3) Abdominal ascites Current Visit: Yes Status: Chronic Qualifiers: Assessment & Plan: will schedule for paracentisis Code(s): R18.8 - OTHER ASCITES
[2020-07-20] MEDS: ROCEPHIN 1 Gm-D5w 50 ml Bag** 1 G/50 ML IVPB IV SCH ×2 (01:31→21:40)
[2020-07-20] MEDS: Neurontin 400 MG PO SCH ×4 (01:31→21:38)
[2020-07-20] MEDS: Zocor 10MG PO SCH ×2 (01:31→21:39)
[2020-07-20] MEDS: ELIQUIS 2.5 MG TABLET PO SCH (01:32)
[2020-07-20] MEDS: Cymbalta 30 MG Capsule PO SCH ×3 (01:32→21:36)
[2020-07-20] MEDS: ATARAX 25 MG PO SCH ×3 (01:32→21:36)
[2020-07-20] MEDS: FEOSOL 325 MG PO SCH ×3 (01:33→21:36)
[2020-07-20] MEDS: Norco 10/325 MG Tablet PO SCH ×3 (01:34→21:38)
[2020-07-20] MEDS: LACTULOSE 20 GM/30ML UD CUP PO SCH ×4 (01:34→21:37)
[2020-07-20] MEDS: Lantus Insulin SQ SCH ×2 (01:34→21:37)
[2020-07-20] MEDS: Sodium Chloride 0.9% 10 ML FLUSH Syringe IV SCH ×4 (01:35→21:39)
[2020-07-20 05:16] LABS: Absolute Neutrophil Ct (ANC) 5.37 (1.4-6.9); BASOPHIL % 0.5 % (0.0-0.4); Basophil (Absolute #) 0.04 (0-0.4); Eosinophil % 2.4 % (0.00-5.0); Eosinophil (Absolute #) 0.18 (0-0.5); Hematocrit 24.9 % (35-47); Lymphocyte (Absolute #) 1.31 (1.0-4.6); Lymphocytes % 17.4 % (24.0-44.0); Mean Cell Volume 89.6 fl (78-100); Mean Corpuscular Hemoglobin 28.8 pg (26-32); Mean Corpuscular Hgb Concent. 32.1 g/dl (32-36); Mean Platelet Volume 9.6 fl (7.5-11.0); Monocyte (Absolute #) 0.64 (0.0-1.3); Monocytes % 8.5 % (0.0-12.0); Neutrophil % 71.2 % (36.0-66.0); Platelet Count 139 K/mm3 (150-450); Red Blood Count 2.78 M/mm3 (4.1-5.4); Red Cell Distribution Width 16.4 % (11.5-14.0); White Blood Count 7.5 K/mm3 (4.0-10.5)
[2020-07-20] MEDS: PROVENTIL 2.5 MG/3 ML NEB IH SCH ×4 (05:38→19:29)
[2020-07-20] MEDS: Spiriva 18 Mcg/Cap Inhaler IH SCH (05:40)
[2020-07-20 06:01] LABS: ALBUMIN 2.4 g/dL (3.5-5.0); ANION GAP 11.9 MEQ/L (5-15); BILIRUBIN,TOTAL 0.2 mg/dL (0.2-1.3); Calcium 7.4 mg/dL (8.4-10.2); Creatinine 1 2.57 mg/dL (0.52-1.04); EST GLOMERULAR FILTRATION RATE 20.7 ML/MIN; Potassium 4.9 mmol/L (3.5-5.1); Total Protein 5.5 g/dL (6.3-8.2)
[2020-07-20] MEDS: Lopressor 25MG Tab PO SCH (08:58)
[2020-07-20] MEDS: HUMALOG SQ SCH ×4 (08:58→18:25)
[2020-07-20] MEDS: Zestril 5 MG PO SCH (08:58)
[2020-07-20] MEDS: SYNTHROID 25 MCG PO SCH (11:32)
[2020-07-20] MEDS: BUMEX 1 MG PO SCH ×2 (11:32→18:25)
[2020-07-20] MEDS: NICODERM CQ 14 MG TD SCH (11:33)
[2020-07-20] MEDS: Protonix 20MG Tablet PO SCH (13:00)
[2020-07-20] MEDS: Protonix 40MG Tablet PO SCH (13:07)
--- NOTE | 2020-07-20 13:30 | PCM.NOTE ---
Date and Time: 07/20/20 1324 Subjective Assessment: Patient has been lethargic. Glucose was 37 at bedtime last night. Insulin was held. Patient reports not breathing well. Appetite is down. Ascites fluid makes it difficult to take a deep breath. States had tried up in the chair yesterday but had to get back in bed because of feeling weak. Patient is on Eliquis for PE in MAY 2020. Eliquis held starting this morning for Peritoneal tap tomorrow. Lovenox 80 mg sq to be given following the proceedure tomorrow and restart Eliquis 5mg bid 07/22/2020 am. Objective Exam General Appearance: mild distress (weak,short of breath while trying to eat), lethargy Neurologic Exam: alert, 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, normal mood/affect, other (no focal neuro changes) Skin Exam: warm, dry, pale Eye Exam: PERRL, EOMI Neck Exam: normal inspection Respiratory Exam: diminished breath sounds, rhonchi (scattered), wheezing (scattered) Cardiovascular Exam: tachycardia Gastrointestinal/Abdomen Exam: distention (due to magdalene ascites) Extremity Exam: other (left LE amputee,right LE pitting edema 1-2+/4) OBJECTIVE DATA Vital Signs: Vital Signs - 24 hr Temp Pulse Resp BP Pulse Ox 07/20/20 12:00 98.2 F 96 H 19 129/58 99 07/20/20 10:58 89 18 97 07/20/20 08:00 98.3 F 82 19 98/52 99 07/20/20 05:55 82 14 97 07/20/20 04:00 98.4 F 81 18 105/54 96 07/19/20 23:54 97.9 F 83 16 139/53 93 L 07/19/20 20:00 98.3 F 77 18 93/54 93 L 07/19/20 19:40 74 14 94 L 07/19/20 16:00 98.1 F 75 18 93/50 95 07/19/20 14:53 70 20 93 L Oxygen-Last 24 hours Oxygen Flowrate (L/min)-RT 2 Oxygen Flowrate (L/min)-RT 2 Oxygen Flowrate (L/min)-RT 2 Pain Assessment - Last Documented Pain Intensity 9 Pain Scale Used 0-10 Pain Scale Intake and Output: Intake & Output 11/14/07/19/20 07/20/20 07/21/20 11:59 11:59 11:59 11:59 Intake Total 120 1757 796 Output Total 550 600 Balance -430 1757 196 Weight 92.9 kg Lab Results: Lab Results-Last 24 Hours 07/19/20 07/19/20 07/20/20 Range/Units 16:10 23:40 00:08 WBC (4.0-10.5) K/mm3 RBC (4.1-5.4) M/mm3 Hgb (12.0-16.0) gm/dl Hct (35-47) % MCV (78-100) fl MCH (26-32) pg MCHC (32-36) g/dl RDW (11.5-14.0) % Plt Count (150-450) K/mm3 MPV (7.5-11.0) fl Gran % (36.0-66.0) % Eos # (Auto) (0-0.5) Absolute Lymphs (auto) (1.0-4.6) Absolute Monos (auto) (0.0-1.3) Lymphocytes % (24.0-44.0) % Monocytes % (0.0-12.0) % Eosinophils % (0.00-5.0) % Basophils % (0.0-0.4) % Absolute Granulocytes (1.4-6.9) Basophils # (0-0.4) Sodium (137-145) mmol/L Potassium (3.5-5.1) mmol/L Chloride (98-107) mmol/L Carbon Dioxide (22-30) mmol/L Anion Gap (5-15) MEQ/L BUN (7-17) mg/dL Creatinine (0.52-1.04) mg/dL Estimated GFR ML/MIN Glucose (74-106) mg/dL POC Glucometer 185 H 37 L* 54 L (74 to 106) mg/dL Calcium (8.4-10.2) mg/dL Total Bilirubin (0.2-1.3) mg/dL AST (14-36) U/L ALT (0-35) U/L Alkaline Phosphatase (38-126) U/L Serum Total Protein (6.3-8.2) g/dL Albumin (3.5-5.0) g/dL 07/20/20 07/20/20 07/20/20 Range/Units 00:35 01:30 04:40 WBC (4.0-10.5) K/mm3 RBC (4.1-5.4) M/mm3 Hgb (12.0-16.0) gm/dl Hct (35-47) % MCV (78-100) fl MCH (26-32) pg MCHC (32-36) g/dl RDW (11.5-14.0) % Plt Count (150-450) K/mm3 MPV (7.5-11.0) fl Gran % (36.0-66.0) % Eos # (Auto) (0-0.5) Absolute Lymphs (auto) (1.0-4.6) Absolute Monos (auto) (0.0-1.3) Lymphocytes % (24.0-44.0) % Monocytes % (0.0-12.0) % Eosinophils % (0.00-5.0) % Basophils % (0.0-0.4) % Absolute Granulocytes (1.4-6.9) Basophils # (0-0.4) Sodium (137-145) mmol/L Potassium (3.5-5.1) mmol/L Chloride (98-107) mmol/L Carbon Dioxide (22-30) mmol/L Anion Gap (5-15) MEQ/L BUN (7-17) mg/dL Creatinine (0.52-1.04) mg/dL Estimated GFR ML/MIN Glucose (74-106) mg/dL POC Glucometer 87 189 H 144 H (74 to 106) mg/dL Calcium (8.4-10.2) mg/dL Total Bilirubin (0.2-1.3) mg/dL AST (14-36) U/L ALT (0-35) U/L Alkaline Phosphatase (38-126) U/L Serum Total Protein (6.3-8.2) g/dL Albumin (3.5-5.0) g/dL 07/20/20 07/20/20 07/20/20 Range/Units 04:45 04:45 07:02 WBC 7.5 (4.0-10.5) K/mm3 RBC 2.78 L (4.1-5.4) M/mm3 Hgb 8.0 L (12.0-16.0) gm/dl Hct 24.9 L (35-47) % MCV 89.6 (78-100) fl MCH 28.8 (26-32) pg MCHC 32.1 (32-36) g/dl RDW 16.4 H (11.5-14.0) % Plt Count 139 L (150-450) K/mm3 MPV 9.6 (7.5-11.0) fl Gran % 71.2 H (36.0-66.0) % Eos # (Auto) 0.18 (0-0.5) Absolute Lymphs (auto) 1.31 (1.0-4.6) Absolute Monos (auto) 0.64 (0.0-1.3) Lymphocytes % 17.4 L (24.0-44.0) % Monocytes % 8.5 (0.0-12.0) % Eosinophils % 2.4 (0.00-5.0) % Basophils % 0.5 (0.0-0.4) % Absolute Granulocytes 5.37 (1.4-6.9) Basophils # 0.04 (0-0.4) Sodium 128 L (137-145) mmol/L Potassium 4.9 (3.5-5.1) mmol/L Chloride 100 (98-107) mmol/L Carbon Dioxide 20 L (22-30) mmol/L Anion Gap 11.9 (5-15) MEQ/L BUN 53 H (7-17) mg/dL Creatinine 2.57 H (0.52-1.04) mg/dL Estimated GFR 20.7 ML/MIN Glucose 162 H (74-106) mg/dL POC Glucometer 151 H (74 to 106) mg/dL Calcium 7.4 L (8.4-10.2) mg/dL Total Bilirubin 0.20 (0.2-1.3) mg/dL AST 44 H (14-36) U/L ALT 12 (0-35) U/L Alkaline Phosphatase 164 H (38-126) U/L Serum Total Protein 5.5 L (6.3-8.2) g/dL Albumin 2.4 L (3.5-5.0) g/dL 11/16/20 Range/Units 11:28 WBC (4.0-10.5) K/mm3 RBC (4.1-5.4) M/mm3 Hgb (12.0-16.0) gm/dl Hct (35-47) % MCV (78-100) fl MCH (26-32) pg MCHC (32-36) g/dl RDW (11.5-14.0) % Plt Count (150-450) K/mm3 MPV (7.5-11.0) fl Gran % (36.0-66.0) % Eos # (Auto) (0-0.5) Absolute Lymphs (auto) (1.0-4.6) Absolute Monos (auto) (0.0-1.3) Lymphocytes % (24.0-44.0) % Monocytes % (0.0-12.0) % Eosinophils % (0.00-5.0) % Basophils % (0.0-0.4) % Absolute Granulocytes (1.4-6.9) Basophils # (0-0.4) Sodium (137-145) mmol/L Potassium (3.5-5.1) mmol/L Chloride (98-107) mmol/L Carbon Dioxide (22-30) mmol/L Anion Gap (5-15) MEQ/L BUN (7-17) mg/dL Creatinine (0.52-1.04) mg/dL Estimated GFR ML/MIN Glucose (74-106) mg/dL POC Glucometer 258 H (74 to 106) mg/dL Calcium (8.4-10.2) mg/dL Total Bilirubin (0.2-1.3) mg/dL AST (14-36) U/L ALT (0-35) U/L Alkaline Phosphatase (38-126) U/L Serum Total Protein (6.3-8.2) g/dL Albumin (3.5-5.0) g/dL Radiology Exams: Radiology Procedures Category Date Time Status ABDOMINAL PARACENTESIS [US] Routine Exams 07/21/20 Ordered Multi-Disciplinary Progress Notes: Multi-Disciplinary Progress Notes 07/20/20 09:58 Case Management Note by Makenzie Simpson NO CHANGE IN DC PLANS AT THIS TIME- PATIENT PLANS TO RETURN HOME TO PRIOR LEVEL OF FUNCTION WITH HER [facility] SERVICES TO CONTINUE Initialized on 07/20/20 09:58 - END OF NOTE Assessment/Plan (1) COPD exacerbation Current Visit: Yes Status: Acute Assessment & Plan: not improving,will add Solumedrol and check BNP. Ascites make it difficult to take deep breath. Code(s): J44.1 - CHRONIC OBSTRUCTIVE PULMONARY DISEASE W (ACUTE) EXACERBATION (2) UTI (urinary tract infection) Current Visit: No Status: Acute Qualifiers: Indwelling urinary catheter type: unspecified Code(s): N39.0 - URINARY TRACT INFECTION, SITE NOT SPECIFIED (3) Ascites Current Visit: No Status: Chronic Qualifiers: Ascites type: other type Qualified Code(s): R18.8 - Other ascites Assessment & Plan: paracentisis for tomorrow morning,Eliquis on hold since this morning Code(s): R18.8 - OTHER ASCITES (4) Hx pulmonary embolism Current Visit: Yes Status: Chronic Code(s): Z86.711 - PERSONAL HISTORY OF PULMONARY EMBOLISM (5) assisted current use of anticoagulant Current Visit: Yes Status: Chronic Code(s): Z79.01 - SITE INTERPRETER (CURRENT) USE OF ANTICOAGULANTS (6) Diabetes type 2, controlled Current Visit: No Status: Chronic Qualifiers: Diabetes mellitus airport location manager insulin use: with airport location manager use Diabetes mellitus complication status: with circulatory complication Diabetes mellitus complication detail: with other circulatory complications Qualified Code(s): E11.59 - Type 2 diabetes mellitus with other circulatory complications; Z79.4 - assisted (current) use of insulin Code(s): E11.9 - TYPE 2 DIABETES MELLITUS WITHOUT COMPLICATIONS (7) Hyperkalemia Current Visit: No Status: Resolved Code(s): E87.5 - HYPERKALEMIA (8) Hypoglycemia associated with diabetes Current Visit: No Status: Acute Assessment & Plan: insulin dose adjusted down by 1/2 Code(s): E11.649 - TYPE 2 DIABETES MELLITUS WITH HYPOGLYCEMIA WITHOUT COMA
[2020-07-20] MEDS: solu-MEDROL 125 MG IV SCH ×2 (14:10→19:29)
[2020-07-21] MEDS: solu-MEDROL 125 MG IV SCH ×4 (00:23→17:59)
[2020-07-21 05:23] LABS: Absolute Neutrophil Ct (ANC) 3.42 (1.4-6.9); BASOPHIL % 0.3 % (0.0-0.4); Basophil (Absolute #) 0.01 (0-0.4); Eosinophil % 0.3 % (0.00-5.0); Eosinophil (Absolute #) 0.01 (0-0.5); Hematocrit 26.8 % (35-47); Hemoglobin 8.8 gm/dl (12.0-16.0); Lymphocyte (Absolute #) 0.42 (1.0-4.6); Lymphocytes % 10.8 % (24.0-44.0); Mean Cell Volume 87.3 fl (78-100); Mean Corpuscular Hemoglobin 28.7 pg (26-32); Mean Corpuscular Hgb Concent. 32.8 g/dl (32-36); Mean Platelet Volume 10.1 fl (7.5-11.0); Monocyte (Absolute #) 0.04 (0.0-1.3); Neutrophil % 87.6 % (36.0-66.0); Platelet Count 137 K/mm3 (150-450); Red Blood Count 3.07 M/mm3 (4.1-5.4); Red Cell Distribution Width 15.8 % (11.5-14.0); White Blood Count 3.9 K/mm3 (4.0-10.5)
[2020-07-21 05:36] LABS: INR 1.45 (0.8-3.0); PROTIME 16.5 SECONDS (9.95-12.35)
[2020-07-21 05:50] LABS: ALBUMIN 2.4 g/dL (3.5-5.0); BILIRUBIN,TOTAL 0.2 mg/dL (0.2-1.3); Calcium 7.6 mg/dL (8.4-10.2); Creatinine 1 2.53 mg/dL (0.52-1.04); EST GLOMERULAR FILTRATION RATE 21.1 ML/MIN; Total Protein 5.5 g/dL (6.3-8.2)
[2020-07-21 06:00] LABS: Slide Review 1 YES
[2020-07-21] MEDS: Sodium Chloride 0.9% 10 ML FLUSH Syringe IV SCH ×4 (06:28→22:38)
[2020-07-21] MEDS: HUMALOG SQ SCH ×3 (07:33→17:08)
[2020-07-21] MEDS: PROVENTIL 2.5 MG/3 ML NEB IH SCH ×4 (08:34→19:49)
[2020-07-21] MEDS: Spiriva 18 Mcg/Cap Inhaler IH SCH (08:42)
[2020-07-21] MEDS: Cymbalta 30 MG Capsule PO SCH ×2 (11:24→22:02)
[2020-07-21] MEDS: Protonix 20MG Tablet PO SCH (11:24)
[2020-07-21] MEDS: Neurontin 400 MG PO SCH ×3 (11:24→22:01)
[2020-07-21] MEDS: BUMEX 1 MG PO SCH ×2 (11:24→17:08)
[2020-07-21] MEDS: SYNTHROID 25 MCG PO SCH (11:24)
[2020-07-21] MEDS: FEOSOL 325 MG PO SCH ×2 (11:24→22:01)
[2020-07-21] MEDS: ATARAX 25 MG PO SCH ×2 (11:25→22:02)
[2020-07-21] MEDS: Norco 10/325 MG Tablet PO SCH ×2 (11:25→22:01)
[2020-07-21] MEDS: LACTULOSE 20 GM/30ML UD CUP PO SCH ×3 (11:25→18:00)
[2020-07-21] MEDS: Lopressor 25MG Tab PO SCH (11:26)
[2020-07-21] MEDS: NICODERM CQ 14 MG TD SCH (11:26)
--- NOTE | 2020-07-21 11:57 | XRAY ---
Indication: Ascites. Informed consent obtained. Patient placed supine. Initial 4 quadrant abdominal ultrasound performed for localization. Largest pocket in the left lower quadrant. The abdominal wall was prepped and draped in sterile fashion. 1% lidocaine plain was used for local anesthesia. Tiny skin incision made. 5 [place] paracentesis needle/catheter was then percutaneously inserted. Once fluid was aspirating, the outer catheter was then advanced with the inner needle removed. Catheter was connected to a Vacutainer. Approximately 8 L of clear almaz colored transudative fluid aspirated and disposed of properly. Repeat sonogram demonstrates marked improvement with small residual. Catheter removed. Due to previous documented leaking fluid from paracentesis site, a single suture was placed using 4-0 Prolene. Band-Aid applied over the puncture site. Previous sutures I placed July 07, 2020 were also removed. Patient was discharged to her room in good condition. Impression: Technically successful ultrasound guided abdominal paracentesis for therapeutic purpose. No immediate complications or blood loss.
[2020-07-21] MEDS: Zestril 5 MG PO SCH (14:29)
[2020-07-21] MEDS: ELIQUIS 2.5 MG TABLET PO SCH (17:37)
--- NOTE | 2020-07-21 17:37 | PCM.NOTE ---
Date and Time: 07/21/201736 Subjective Assessment: Patient had paracentesis today ,8 liters of fluid was removed. She is weak and glassy eyed trying to eat . She has a fork full of mashed potatoes but is starring off into the room. Patient's BNP is elevated = 3,980 but sodium is low =129 and gfr is 21. She complains it hurts and feels tight mid chest when taking a deep breath. Proposal Development Manager , Dr Thrasher follow patient for CKD and labs were faxed to him for help with fliuid management electrolyte imbalance. Patient does not see a Printed Circuit Board Preassembler except when she was hospitalized for DVT and PE MAY 2020, she saw Dr Bowman. She was not aware of CHF dg and an ECHO will be done in the morning. Dr Valencia follows for Cirrhosis and she missed her appt with him this hospitalization. Objective Exam General Appearance: lethargy Neurologic Exam: 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, cooperative, intoxicated appearance, other (slow speech but speech is clear ,no focal neuro defecits) Skin Exam: warm, dry, pale Eye Exam: PERRL, EOMI (glassy eyed) Ears, Nose, Throat Exam: normal ENT inspection Neck Exam: normal inspection (no JVD) Respiratory Exam: rhonchi (mid chest bilaterally) Cardiovascular Exam: tachycardia (regular rhythm) Gastrointestinal/Abdomen Exam: soft (tende S/P paracentesis) Extremity Exam: other (pitting edema RLE 1-2+/4,LLE amputee) Back Exam: normal inspection OBJECTIVE DATA Vital Signs: Vital Signs - 24 hr Temp Pulse Resp BP Pulse Ox 07/21/20 16:00 97.9 F 89 20 121/70 95 07/21/20 15:51 100 H 20 07/21/20 12:51 97 H 20 07/21/20 12:00 98.0 F 83 18 134/63 93 L 07/21/20 08:35 97 H 22 98 07/21/20 07:26 98.5 F 90 18 130/61 97 07/21/20 04:00 97.6 F 91 H 16 139/65 96 07/21/20 00:00 97.3 F 98 H 22 120/56 97 07/20/20 20:00 98.3 F 102 H 17 112/54 97 07/20/20 19:30 101 H 22 97 Pain Assessment - Last Documented Pain Intensity 0 Pain Scale Used 0-10 Pain Scale Intake and Output: Intake & Output 07/19/20 07/20/20 07/21/20 07/22/20 11:59 11:59 11:59 11:59 Intake Total 1756 796 360 480 Output Total 600 1200 Balance 3219 196 -840 480 Weight 92.9 kg 89.6 kg Lab Results: Lab Results-Last 24 Hours 07/20/20 07/21/20 07/21/20 Range/Units 20:50 04:50 04:50 WBC 3.9 L (4.0-10.5) K/mm3 RBC 3.07 L (4.1-5.4) M/mm3 Hgb 8.8 L (12.0-16.0) gm/dl Hct 26.8 L (35-47) % MCV 87.3 (78-100) fl MCH 28.7 (26-32) pg MCHC 32.8 (32-36) g/dl RDW 15.8 H (11.5-14.0) % Plt Count 137 L (150-450) K/mm3 MPV 10.1 (7.5-11.0) fl Gran % 87.6 H (36.0-66.0) % Eos # (Auto) 0.01 (0-0.5) Absolute Lymphs (auto) 0.42 L (1.0-4.6) Absolute Monos (auto) 0.04 (0.0-1.3) Lymphocytes % 10.8 L (24.0-44.0) % Monocytes % 1.0 (0.0-12.0) % Eosinophils % 0.3 (0.00-5.0) % Basophils % 0.3 (0.0-0.4) % Absolute Granulocytes 3.42 (1.4-6.9) Basophils # 0.01 (0-0.4) PT 16.5 H (9.95-12.35) SECONDS INR 1.45 (0.8-3.0) Sodium (137-145) mmol/L Potassium (3.5-5.1) mmol/L Chloride (98-107) mmol/L Carbon Dioxide (22-30) mmol/L Anion Gap (5-15) MEQ/L BUN (7-17) mg/dL Creatinine (0.52-1.04) mg/dL Estimated GFR ML/MIN Glucose (74-106) mg/dL POC Glucometer 323 H (74 to 106) mg/dL Calcium (8.4-10.2) mg/dL Total Bilirubin (0.2-1.3) mg/dL AST (14-36) U/L ALT (0-35) U/L Alkaline Phosphatase (38-126) U/L NT-Pro-B Natriuret Pep (0-900) pg/mL Serum Total Protein (6.3-8.2) g/dL Albumin (3.5-5.0) g/dL Slides for Path Review YES 07/21/20 07/21/20 07/21/20 Range/Units 04:50 06:57 12:27 WBC (4.0-10.5) K/mm3 RBC (4.1-5.4) M/mm3 Hgb (12.0-16.0) gm/dl Hct (35-47) % MCV (78-100) fl MCH (26-32) pg MCHC (32-36) g/dl RDW (11.5-14.0) % Plt Count (150-450) K/mm3 MPV (7.5-11.0) fl Gran % (36.0-66.0) % Eos # (Auto) (0-0.5) Absolute Lymphs (auto) (1.0-4.6) Absolute Monos (auto) (0.0-1.3) Lymphocytes % (24.0-44.0) % Monocytes % (0.0-12.0) % Eosinophils % (0.00-5.0) % Basophils % (0.0-0.4) % Absolute Granulocytes (1.4-6.9) Basophils # (0-0.4) PT (9.95-12.35) SECONDS INR (0.8-3.0) Sodium 129 L (137-145) mmol/L Potassium 5.0 (3.5-5.1) mmol/L Chloride 101 (98-107) mmol/L Carbon Dioxide 18 L (22-30) mmol/L Anion Gap 15.0 (5-15) MEQ/L BUN 55 H (7-17) mg/dL Creatinine 2.53 H (0.52-1.04) mg/dL Estimated GFR 21.1 ML/MIN Glucose 347 H (74-106) mg/dL POC Glucometer 328 H 318 H (74 to 106) mg/dL Calcium 7.6 L (8.4-10.2) mg/dL Total Bilirubin 0.20 (0.2-1.3) mg/dL AST 21 (14-36) U/L ALT 15 (0-35) U/L Alkaline Phosphatase 172 H (38-126) U/L NT-Pro-B Natriuret Pep 3980 H (0-900) pg/mL Serum Total Protein 5.5 L (6.3-8.2) g/dL Albumin 2.4 L (3.5-5.0) g/dL Slides for Path Review 07/21/20 Range/Units 16:34 WBC (4.0-10.5) K/mm3 RBC (4.1-5.4) M/mm3 Hgb (12.0-16.0) gm/dl Hct (35-47) % MCV (78-100) fl MCH (26-32) pg MCHC (32-36) g/dl RDW (11.5-14.0) % Plt Count (150-450) K/mm3 MPV (7.5-11.0) fl Gran % (36.0-66.0) % Eos # (Auto) (0-0.5) Absolute Lymphs (auto) (1.0-4.6) Absolute Monos (auto) (0.0-1.3) Lymphocytes % (24.0-44.0) % Monocytes % (0.0-12.0) % Eosinophils % (0.00-5.0) % Basophils % (0.0-0.4) % Absolute Granulocytes (1.4-6.9) Basophils # (0-0.4) PT (9.95-12.35) SECONDS INR (0.8-3.0) Sodium (137-145) mmol/L Potassium (3.5-5.1) mmol/L Chloride (98-107) mmol/L Carbon Dioxide (22-30) mmol/L Anion Gap (5-15) MEQ/L BUN (7-17) mg/dL Creatinine (0.52-1.04) mg/dL Estimated GFR ML/MIN Glucose (74-106) mg/dL POC Glucometer 348 H (74 to 106) mg/dL Calcium (8.4-10.2) mg/dL Total Bilirubin (0.2-1.3) mg/dL AST (14-36) U/L ALT (0-35) U/L Alkaline Phosphatase (38-126) U/L NT-Pro-B Natriuret Pep (0-900) pg/mL Serum Total Protein (6.3-8.2) g/dL Albumin (3.5-5.0) g/dL Slides for Path Review Radiology Exams: Radiology Procedures Category Date Time Status ABDOMINAL PARACENTESIS [US] Routine Exams 07/21/20 11:26 Completed Multi-Disciplinary Progress Notes: Multi-Disciplinary Progress Notes 07/21/20 12:28 Case Management Note by Makenzie Simpson PATIENT CONTINUES TO DENY ANY NEEDS REGARDING DC AT THIS TIME. Initialized on 07/21/20 12:28 - END OF NOTE Assessment/Plan (1) COPD exacerbation Current Visit: Yes Status: Acute Assessment & Plan: solumedrol was started ,wheezing improved but ronchi centrally sticky mucus,hydration should help,IV NS x 1 liter started. Code(s): J44.1 - CHRONIC OBSTRUCTIVE PULMONARY DISEASE W (ACUTE) EXACERBATION (2) UTI (urinary tract infection) Current Visit: No Status: Resolved Qualifiers: Indwelling urinary catheter type: unspecified Assessment & Plan: culture grew Klebsiela sens to Ceftriaxone started on admission Code(s): N39.0 - URINARY TRACT INFECTION, SITE NOT SPECIFIED (3) Ascites Current Visit: No Status: Chronic Qualifiers: Ascites type: other type Qualified Code(s): R18.8 - Other ascites Assessment & Plan: paracentesis today . 8L fluid removed. Code(s): R18.8 - OTHER ASCITES (4) Hx pulmonary embolism Current Visit: Yes Status: Chronic Assessment & Plan: Eliquis was held for proceedure ,Lovenox given post proceedure. 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 Code(s): I50.9 - HEART FAILURE, UNSPECIFIED (9) Hyponatremia Current Visit: No Status: Acute Assessment & Plan: Dr Thrasher follows ,sent labs for him to review and advise,started IV NS x 1 liter. Code(s): E87.1 - HYPO-OSMOLALITY AND HYPONATREMIA
[2020-07-21] MEDS ORDERED: ENOXAPARIN SODIUM SQ ONE (17:40)
[2020-07-21] MEDS: Sodium Chloride 0.9% 1000 ML 1,000 ML IV SCH (17:59)
[2020-07-21] MEDS ORDERED: Mucomyst 200 MG/ML IH SCH (22:00)
[2020-07-21] MEDS: ROCEPHIN 1 Gm-D5w 50 ml Bag** 1 G/50 ML IVPB IV SCH (22:01)
[2020-07-21] MEDS: Zocor 10MG PO SCH (22:01)
[2020-07-21] MEDS: Lantus Insulin SQ SCH (22:03)
[2020-07-22] MEDS: solu-MEDROL 125 MG IV SCH ×2 (00:37→07:23)
[2020-07-22] MEDS ORDERED: Lantus Insulin SQ ONE (01:56)
[2020-07-22] MEDS ORDERED: HUMALOG SQ ONE (02:05)
[2020-07-22] MEDS: HUMALOG SQ PRN ×3 (03:24→11:04)
[2020-07-22 05:28] LABS: Absolute Neutrophil Ct (ANC) 3.52 (1.4-6.9); Basophil (Absolute #) 0 (0-0.4); Eosinophil (Absolute #) 0 (0-0.5); Hemoglobin 8.1 gm/dl (12.0-16.0); Lymphocyte (Absolute #) 0.34 (1.0-4.6); Lymphocytes % 8.5 % (24.0-44.0); Mean Corpuscular Hemoglobin 29.3 pg (26-32); Mean Corpuscular Hgb Concent. 33.8 g/dl (32-36); Mean Platelet Volume 9.9 fl (7.5-11.0); Monocyte (Absolute #) 0.15 (0.0-1.3); Monocytes % 3.7 % (0.0-12.0); Neutrophil % 87.8 % (36.0-66.0); Platelet Count 126 K/mm3 (150-450); Red Blood Count 2.76 M/mm3 (4.1-5.4)
[2020-07-22 05:58] LABS: ALBUMIN 2.2 g/dL (3.5-5.0); ANION GAP 14.2 MEQ/L (5-15); BILIRUBIN,TOTAL 0.1 mg/dL (0.2-1.3); Calcium 7.4 mg/dL (8.4-10.2); Creatinine 1 2.36 mg/dL (0.52-1.04); EST GLOMERULAR FILTRATION RATE 22.9 ML/MIN; Potassium 4.4 mmol/L (3.5-5.1); Total Protein 5.1 g/dL (6.3-8.2)
[2020-07-22] MEDS ORDERED: Mucomyst 200 MG/ML IH SCH ×2 (07:00→07:15)
[2020-07-22] MEDS: PROVENTIL 2.5 MG/3 ML NEB IH SCH ×3 (07:10→14:55)
[2020-07-22] MEDS: Sodium Chloride 0.9% 10 ML FLUSH Syringe IV SCH ×2 (07:23→14:29)
[2020-07-22] MEDS: Sodium Chloride 0.9% 1000 ML 1,000 ML IV SCH (07:31)
[2020-07-22] MEDS: HUMALOG SQ SCH ×2 (08:19→11:03)
[2020-07-22 09:07] LABS: Slide Review 1 YES
[2020-07-22] MEDS: Spiriva 18 Mcg/Cap Inhaler IH SCH (09:17)
[2020-07-22] MEDS: ELIQUIS 2.5 MG TABLET PO SCH (09:43)
[2020-07-22] MEDS: Protonix 20MG Tablet PO SCH (09:43)
[2020-07-22] MEDS: ATARAX 25 MG PO SCH (09:43)
[2020-07-22] MEDS: Lopressor 25MG Tab PO SCH (09:43)
[2020-07-22] MEDS: Cymbalta 30 MG Capsule PO SCH (09:43)
[2020-07-22] MEDS: Zestril 5 MG PO SCH (09:44)
[2020-07-22] MEDS: SYNTHROID 25 MCG PO SCH (09:44)
[2020-07-22] MEDS: LACTULOSE 20 GM/30ML UD CUP PO SCH ×2 (09:44→14:30)
[2020-07-22] MEDS: BUMEX 1 MG PO SCH (09:44)
[2020-07-22] MEDS: FEOSOL 325 MG PO SCH (09:44)
[2020-07-22] MEDS: Neurontin 400 MG PO SCH ×2 (09:44→14:30)
[2020-07-22] MEDS: NICODERM CQ 14 MG TD SCH (09:44)
[2020-07-22 11:05] VITALS: BP 136/63
[2020-07-22 11:07] VITALS: O2SAT 99
[2020-07-22 14:59] VITALS: PULSE 91
--- NOTE | 2020-07-24 09:28 | ECHO ---
DATE OF PROCEDURE: 07/22/2020 CLINICAL INFORMATION: Elevated BNP. The M-mode 2D, and Doppler echocardiogram including color flow Doppler shows the left ventricle is normal in size at 2.7 cm. There is accentuated contractility of the left ventricle with an ejection fraction is estimated to be 65 to 70%. There is no thrombus present. The septal wall thickness is increased at 1.5 cm. The left ventricular posterior wall thickness is increased at 2.1 cm. The right ventricle is grossly normal. The left atrium is normal at 3.2 cm. The interatrial septum is intact. The right atrium is normal. The aortic valve opens well. There is mild aortic regurgitation. There is mitral valve leaflet thickening associated with mild mitral regurgitation. There is mild tricuspid regurgitation. The right ventricular systolic pressure is elevated at 46 mm of Mercury. The pulmonic valve is not well visualized. The aortic root is normal at 2.7 cm. There is no pericardial effusion present. IMPRESSION: 1) ACCENTUATED CONTRACTILITY OF THE LEFT VENTRICLE. 2) SEVERE ASYMMETRIC LEFT VENTRICULAR HYPERTROPHY. 3) MILD MITRAL REGURGITATION. 4) MILD TRICUSPID REGURGITATION. 5) MODERATE PULMONARY HYPERTENSION. 6) MILD AORTIC REGURGITATION.
== END 2020-07-22 15:37 | disposition home or self-care (01) | DRG 191 ==
LOC: ED 17:47 → MED SURG 22:27 → OBSVTOIN 07-18 10:15
PROVIDERS: ADMIT Family Medicine; ATTEND Family Medicine
DX: J44.1 Chronic obstructive pulmonary disease with (acute) exacerbation (principal); N39.0 Urinary tract infection, site not specified; R18.8 Other ascites; Z86.711 Personal history of pulmonary embolism; Z79.01 Long term (current) use of anticoagulants; Z79.899 Other long term (current) drug therapy; E03.9 Hypothyroidism, unspecified; K74.60 Unspecified cirrhosis of liver; E11.22 Type 2 diabetes mellitus with diabetic chronic kidney disease; I12.9 Hypertensive chronic kidney disease with stage 1 through stage 4 chronic kidney disease, or unspecified chronic kidney disease; N18.30 Chronic kidney disease, stage 3 unspecified; E87.5 Hyperkalemia; Z89.512 Acquired absence of left leg below knee; E11.649 Type 2 diabetes mellitus with hypoglycemia without coma; I50.9 Heart failure, unspecified; E87.1 Hypo-osmolality and hyponatremia; E78.1 Pure hyperglyceridemia
CPT/HCPCS: 36000; 36415; 49083; 71045; 80053; 81001; 82140; 82306; 82947; 83735; 83880; 84484; 85025; 85610; 87040; 87077; 87086; 87186; 93005; 93041; 93306; 94640; 94760; 94762; 96365; 99285; G0378; U0003; J0696; J1650; J1817; J1940; J2270; J2930; J7609; P9047; A9270-GY

== ENCOUNTER 2020-09-30 11:30 | Emergency (ER) | payer MEDICARE ==
[2020-09-30] MEDS ORDERED: DUONEB 0.5-3 MG/3 ml Neb IH ONE (12:20)
[2020-09-30] MEDS: DUONEB 0.5-3 MG/3 ml Neb IH ONE (12:26)
[2020-09-30] MEDS ORDERED: BABY ASPIRIN 81 MG CHEW ONE (12:29)
[2020-09-30] MEDS ORDERED: solu-MEDROL 125 MG ONE (12:30)
[2020-09-30] MEDS: BABY ASPIRIN 81 MG CHEW PO ONE (12:32)
[2020-09-30] MEDS: solu-MEDROL 125 MG IV ONE (12:32)
--- NOTE | 2020-09-30 12:43 | XRAY ---
Indication: Short of breath and cough. Comparison: July 16, 2020. Portable chest demonstrates worsening diffuse bilateral interstitial alveolar opacities, especially left midlung. No consolidation/large effusion. Heart not enlarged with new right double lumen dialysis catheter.
[2020-09-30 12:58] LABS: Absolute Neutrophil Ct (ANC) 8.73 (1.4-6.9); BASOPHIL % 0.3 % (0.0-0.4); Basophil (Absolute #) 0.03 (0-0.4); Eosinophil % 4.3 % (0.00-5.0); Eosinophil (Absolute #) 0.49 (0-0.5); Hematocrit 25.5 % (35-47); Lymphocyte (Absolute #) 1.28 (1.0-4.6); Lymphocytes % 11.2 % (24.0-44.0); Mean Cell Volume 87.9 fl (78-100); Mean Corpuscular Hemoglobin 27.6 pg (26-32); Mean Corpuscular Hgb Concent. 31.4 g/dl (32-36); Mean Platelet Volume 9.3 fl (7.5-11.0); Monocyte (Absolute #) 0.91 (0.0-1.3); Neutrophil % 76.2 % (36.0-66.0); Platelet Count 248 K/mm3 (150-450); Red Cell Distribution Width 15.2 % (11.5-14.0); White Blood Count 11.4 K/mm3 (4.0-10.5)
[2020-09-30 13:27] LABS: ALBUMIN 2.6 g/dL (3.5-5.0); ANION GAP 7.3 MEQ/L (5-15); BILIRUBIN,TOTAL 0.7 mg/dL (0.2-1.3); Calcium 8.1 mg/dL (8.4-10.2); Creatinine 1 1.91 mg/dL (0.52-1.04); EST GLOMERULAR FILTRATION RATE 29.2 ML/MIN; MAGNESIUM 1.9 mg/dL (1.6-2.3); Potassium 4.3 mmol/L (3.5-5.1); Total Protein 6.3 g/dL (6.3-8.2)
--- NOTE | 2020-09-30 14:09 | ERPHSYRPT ---
- History of Present Illness Time Seen by Provider: 09/30/20 11:32 Source: patient Exam Limitations: no limitations Patient Subjective Stated Complaint: Pt went to dialysis and her blood pressure kept dropping so she was told to come to the ER, pt c/o of shortness of breath as she is do for a pericentisis tomorrow Triage Nursing Assessment: Pt was brought to the ER by her daughter, tachycardic, tachypnea, denies pain, crackles throughout, due for pericentisis tomorrow, skin jaundice in color/w/d Physician History: 55 years old female with history of diabetes mellitus, left below-knee amputation, chronic kidney disease, hypertension, hyperlipidemia, COPD, tobacco abuse sent in ER from dialysis with low blood pressure and 90s systolic. Patient reports she is having shortness of breath for almost 1 week with pro gressive worsening associated with cough productive of yellow-green sputum and more wheezing and crackling than usual. Patient does have history of cirrhosis and goes for paracentesis regularly and is scheduled to have paracentesis done tomorrow. Patient denies any fever chills or sick contact. Denies any chest pain but has tightness and pressure feeling with shortness of breath. Blood pressure readings in 110s systolic on presentation in the ER. Timing/Duration: week(s) (1), gradual onset, worse Activities at Onset: activity, rest Severity of Dyspnea-Max: moderate Severity of Dyspnea-Current: moderate Possible Cause: occasional episodes Modifying Factors: Improves With: rest. Worsens With: coughing, exertion Associated Symptoms: cough, chest pain/discomfort, edema, wheezing, leg swelling, productive cough Allergies/Adverse Reactions: adhesive tape Allergy (Mild, Verified 09/30/20 12:00) redness clindamycin Adverse Reaction (Verified 09/30/20 12:00) Skin Irritation sunburn like redness and itching bee stings Allergy (Mild, Uncoded 09/30/20 12:00) Anaphylactic Reaction trouble breathing and swelling. Home Medications: Duloxetine HCl 30 mg [Cymbalta 30 MG Capsule] 30 mg PO BID 11/17/12 [History] Albuterol Sulfate [Proair Hfa] 2 puff IH Q4HPRN PRN 04/21/15 [History] Omeprazole 20 MG [Prilosec 20 mg] 20 mg PO DAILY 04/21/15 [History] Pravastatin Sodium [Pravachol] 10 mg PO HS 02/07/16 [History] Gabapentin [Gralise] 400 mg PO TID 11/11/16 [History] Docusate Sodium 100 mg [Colace 100 MG] 100 mg PO HSPRN PRN 01/18/19 [Hist ory] Ergocalciferol (Vitamin D2) [Vitamin D] 50,000 units PO CHEW 01/18/19 [History] Ferrous Sulfate 325 mg PO BID 01/18/19 [History] Hydroxyzine HCl 10 mg PO BID 01/18/19 [History] Levothyroxine Sodium 25 Mcg [Synthroid 25 Mcg] 25 mcg PO DAILY 01/18/19 [History] Insulin Glargine [Lantus Insulin] 30 units SQ HS 09/27/19 [History] Tiotropium [place] [Spiriva Respimat] 1 puff IH DAILY 10/14/19 [History] Lactulose [Lactulose 20 gm/30Ml Ud Cup] 20 gm PO TID 10/29/19 [History] Insulin Lispro [Humalog Kwikpen U-100] 10 unit SQ TIDWMEALS 03/27/20 [History] Promethazine HCl 25 mg [Phenergan 25 mg] 25 mg PO Q6HPRN PRN 03/27/20 [History] Hydrocodone/Acetaminophen [Hydrocodone-Acetamin 10-325 mg^^^] 1 ea PO BID 06/01/20 [History] Apixaban [Eliquis] 5 mg PO BID 06/21/20 [History] Nicotine 14 mg [Nicoderm Cq 14 mg] 14 mg TD Q24H 06/21/20 [History] Albuterol 2.5 mg/3 ml Neb [Proventil 2.5 mg/3 ml Neb] 1 ampul IH QID PRN 07/16/20 [History] Midodrine HCl 10 mg PO QID 09/30/20 [History] Hx Tetanus, Diphtheria Vaccination/Date Given: Yes Hx Influenza Vaccination/Date Given: No Hx Pneumococcal Vaccination/Date Given: Yes Travel Risk - International Travel Have you traveled outside of the country in past 3 weeks: No - Coronavirus Screening Are you exhibiting any of the following symptoms?: No - Review of Systems Constitutional: Fatigue Eyes: No Symptoms Ears, Nose, & Throat: No Symptoms Respiratory: Cough, Dyspnea, Dyspnea on Exertion ([place]), Wheezing Cardiac: Orthopnea Abdominal/Gastrointestinal: Abdominal Pain Genitourinary Symptoms: No Symptoms Musculoskeletal: Deformity Skin: No Symptoms Neurological: No Symptoms Psychological: Anxiety, Depression Endocrine: No Symptoms Hematologic/Lymphatic: No Symptoms Immunological/Allergic: No Symptoms - Past Medical History Pertinent Past Medical History: Yes Neurological History: No Pertinent History ENT History: No Pertinent History Cardiac History: Hypertension Respiratory History: Asthma, COPD, Pneumonia, Pulmonary Embolism Endocrine Medical History: Diabetes Type II, Hypoglycemia, Hypothyroidism Musculoskeletal History: Fractures GI Medical History: GERD, Other History: Renal Disease Psycho-Social History: Anxiety, Depression Female Reproductive Disorders: No Pertinent History Other Medical History: left ankle fx with mult surgeries, in February 2019 bka,. ascites. fatty liver - Past Surgical History Past Surgical History: Yes Neuro Surgical History: No Pertinent History Cardiac: No Pertinent History Respiratory: No Pertinent History Gastrointestinal: Cholecystectomy, Exploratory Laparoscopy Genitourinary: No Pertinent History Musculoskeletal: Amputation Female Surgical History: Section, Hysterectomy Other Surgical History: foot surgery, screw placed in left big toe, removal, and antibiotic bead placement. mult lt foot surgeries. LT BKA February 2019 - Social History Smoking Status: Current every day smoker How long have you smoked: 30+ Exposure to second hand smoke: Yes Drug Use: none Patient Lives Alone: Yes Significant Family History: no pertinent family hx - Female History Hx Now: No - Nursing Vital Signs Nursing Vital Signs: Initial Vital Signs Temperature 97.7 F 09/30/20 11:44 Pulse Rate 104 H 09/30/20 11:44 Respiratory Rate 24 09/30/20 11:44 Blood Pressure 133/63 09/30/20 11:44 O2 Sat by Pulse Oximetry 95 09/30/20 11:44 Pain Scale Pain Intensity 5 - Physical Exam General Appearance: no apparent distress Eye Exam: eyes nml inspection Ears, Nose, Throat Exam: hearing grossly normal, normal ENT inspection, normal pharynx Neck Exam: normal inspection, non-tender, supple, full range of motion Respiratory Exam: diminished breath sounds, crackles/rales, rhonchi, wheezing Cardiovascular/Chest Exam: normal heart sounds, regular rate/rhythm Abdominal/Gastrointestinal Exam: soft, normal bowel sounds, distention, other (Abdominal patient with fluid thrill), No tenderness Extremity Exam: calf tenderness Neurologic Exam: alert, 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, cooperative, peoplesoft developer II-XII nml as tested Skin Exam: normal color SpO2 Interpretation: normal SpO2: 96 O2 Delivery: Room Air - Course EKG Interpreted by Me: RATE ([id number]), Sinus Tach, NORMAL AXIS, NORMAL INTERVALS, NORMAL QRS Ordered Tests: Active Orders 24 hr Category Date Time Status [employer] Switchman STAT Care 09/30/20 12:15 Completed EKG-ER Only STAT Care 09/30/20 12:15 Completed IV Insertion STAT Care 09/30/20 12:15 Completed CHEST 1 VIEW (PORTABLE) Stat Exams 09/30/20 12:32 Completed BLOOD CULTURE Stat Lab 09/30/20 12:50 Received CBC W DIFF Stat Lab 09/30/20 12:35 Completed CMP Stat Lab 09/30/20 12:35 Completed Lactic Acid Stat Lab 09/30/20 12:33 Completed MAGNESIUM Stat Lab 09/30/20 12:35 Completed NT PRO BNP Stat Lab 09/30/20 12:35 Completed TROPONIN Q3H Lab 09/30/20 12:35 Completed TROPONIN Q3H Lab 09/30/20 15:30 Completed TROPONIN Q3H Lab 09/30/20 18:15 Completed Respiratory Therapy Assessment DAILY RT 09/30/20 12:23 Completed Medication Summary Discontinued Medications Generic Name Dose Route Start Last Admin Trade Name Freq PRN Reason Stop Dose Admin Albuterol/Ipratropium 3 ml 09/30/20 12:15 09/30/20 12:26 Duoneb 0.5-3 Mg/3 Ml Neb IH 09/30/20 12:16 3 ml STAT ONE Administration Albuterol/Ipratropium Confirm 09/30/20 12:20 Duoneb 0.5-3 Mg/3 Ml Neb Administered 09/30/20 12:21 Dose 3 ml IH .STK-MED ONE Aspirin 324 mg 09/30/20 12:16 09/30/20 12:32 Baby Aspirin 81 Mg Chew PO 09/30/20 12:17 324 mg STAT ONE Administration Aspirin Confirm 09/30/20 12:29 Baby Aspirin 81 Mg Chew Administered 09/30/20 12:30 Dose 324 mg .ROUTE .STK-MED ONE Azithromycin 500 mg in 250 mls @ 250 mls/hr 09/30/20 13:53 09/30/20 17:22 Zithromax 500 Mg/ 250 Ml Nacl Premix IV 09/30/20 14:52 Infused STAT STA Infusion Ceftriaxone Sodium/Dextrose 1 g in 50 mls @ 100 mls/hr 09/30/20 13:53 09/30/20 15:59 Rocephin 1 Gm-D5w 50 Ml Bag IV 09/30/20 14:22 Infused STAT STA Infusion Ceftriaxone Sodium/Dextrose Confirm 09/30/20 14:55 Rocephin 1 Gm-D5w 50 Ml Bag Administered 09/30/20 14:56 Dose 1 g in 50 mls @ ud IV .STK-MED ONE Azithromycin Confirm 09/30/20 15:30 Zithromax 500 Mg/ 250 Ml Nacl Premix Administered 09/30/20 15:31 Dose 500 mg in 250 mls @ ud IV .STK-MED ONE Methylprednisolone Sodium Succinate 125 mg 09/30/20 12:15 09/30/20 12:32 Solu-Medrol 125 Mg IV 09/30/20 12:16 125 mg STAT ONE Administration Methylprednisolone Sodium Succinate Confirm 09/30/20 12:30 Solu-Medrol 125 Mg Administered 09/30/20 12:31 Dose 125 mg .ROUTE .STK-MED ONE Lab/Rad Data: Laboratory Result Diagrams 09/30/20 12:35 09/30/20 12:35 Laboratory Results 09/30/20 09/30/20 09/30/20 Range/Units 18:15 15:30 12:35 WBC (4.0-10.5) K/mm3 RBC (4.1-5.4) M/mm3 Hgb (12.0-16.0) gm/dl Hct (35-47) % MCV (78-100) fl MCH (26-32) pg MCHC (32-36) g/dl RDW (11.5-14.0) % Plt Count (150-450) K/mm3 MPV (7.5-11.0) fl Gran % (36.0-66.0) % Eos # (Auto) (0-0.5) Absolute Lymphs (auto) (1.0-4.6) Absolute Monos (auto) (0.0-1.3) Lymphocytes % (24.0-44.0) % Monocytes % (0.0-12.0) % Eosinophils % (0.00-5.0) % Basophils % (0.0-0.4) % Absolute Granulocytes (1.4-6.9) Basophils # (0-0.4) Sodium 126 L (137-145) mmol/L Potassium 4.3 (3.5-5.1) mmol/L Chloride 90 L (98-107) mmol/L Carbon Dioxide 34 H (22-30) mmol/L Anion Gap 7.3 (5-15) MEQ/L BUN 20 H (7-17) mg/dL Creatinine 1.91 H (0.52-1.04) mg/dL Estimated GFR 29.2 ML/MIN Glucose 86 (74-106) mg/dL Lactic Acid (0.4-2.0) Calcium 8.1 L (8.4-10.2) mg/dL Magnesium 1.9 (1.6-2.3) mg/dL Total Bilirubin 0.70 (0.2-1.3) mg/dL AST 38 H (14-36) U/L ALT 16 (0-35) U/L Alkaline Phosphatase 296 H (38-126) U/L Troponin I < 0.012 < 0.012 (0.000-0.034) ng/mL NT-Pro-B Natriuret Pep 1970 H (0-900) pg/mL Serum Total Protein 6.3 (6.3-8.2) g/dL Albumin 2.6 L (3.5-5.0) g/dL 09/30/20 09/30/20 09/30/20 Range/Units 12:35 12:35 12:33 WBC 11.4 H (4.0-10.5) K/mm3 RBC 2.90 L (4.1-5.4) M/mm3 Hgb 8.0 L (12.0-16.0) gm/dl Hct 25.5 L (35-47) % MCV 87.9 (78-100) fl MCH 27.6 (26-32) pg MCHC 31.4 L (32-36) g/dl RDW 15.2 H (11.5-14.0) % Plt Count 248 (150-450) K/mm3 MPV 9.3 (7.5-11.0) fl Gran % 76.2 H (36.0-66.0) % Eos # (Auto) 0.49 (0-0.5) Absolute Lymphs (auto) 1.28 (1.0-4.6) Absolute Monos (auto) 0.91 (0.0-1.3) Lymphocytes % 11.2 L (24.0-44.0) % Monocytes % 8.0 (0.0-12.0) % Eosinophils % 4.3 (0.00-5.0) % Basophils % 0.3 (0.0-0.4) % Absolute Granulocytes 8.73 H (1.4-6.9) Basophils # 0.03 (0-0.4) Sodium (137-145) mmol/L Potassium (3.5-5.1) mmol/L Chloride (98-107) mmol/L Carbon Dioxide (22-30) mmol/L Anion Gap (5-15) MEQ/L BUN (7-17) mg/dL Creatinine (0.52-1.04) mg/dL Estimated GFR ML/MIN Glucose (74-106) mg/dL Lactic Acid 1.7 (0.4-2.0) Calcium (8.4-10.2) mg/dL Magnesium (1.6-2.3) mg/dL Total Bilirubin (0.2-1.3) mg/dL AST (14-36) U/L ALT (0-35) U/L Alkaline Phosphatase (38-126) U/L Troponin I < 0.012 (0.000-0.034) ng/mL NT-Pro-B Natriuret Pep (0-900) pg/mL Serum Total Protein (6.3-8.2) g/dL Albumin (3.5-5.0) g/dL - Progress Progress: improved Air Movement: fair Progress Note: 09/30/20 14:33 55 years old is evaluated for increasing shortness of breath and getting hypotensive at dialysis. Patient was not hypotensive on presentation in the ER. Although she had a diffuse wheezing and crackling. She is given breathing treatment and Solu-Medrol. Chest x-ray findings consistent with pneumonia and started on Rocephin and Zithromax. Patient has anemia which is chronic and stable around hemoglobin of 8. She also has hyponatremia of 126 but review of labs shows patient runs usually just below 130s. She is not having any neuro symptoms. She has a chronic kidney disease which is stable. Discussed with Dr. Murray who has seen patient multiple times and have admitted here, recommended transfer to facility with nephrology services as patient usually is starts getting third spacing after few days of hospitalization. I have discussed with patient about possible transfer and she is okay with going to [facility]. [facility] transfer [facility] is called. 09/30/20 15:08 Patient is getting hypoxic to 87% on room air. Placed on [address] Mcgill at [facility] and patient is accepted for transfer. Blood Culture(s) Obtained: Yes Antibiotics given: Yes Discussed with DrJace: Bek[place], Other Counseled pt/family regarding: lab results, diagnosis, rad results - Departure Departure Disposition: Transfer Clinical Impression: Hyponatremia, Anemia of chronic disease Cirrhosis of liver with ascites Qualifiers: Hepatic cirrhosis type: unspecified hepatic cirrhosis Qualified Code(s): K74.60 - Unspecified cirrhosis of liver Pneumonia Qualifiers: Pneumonia type: due to unspecified organism Laterality: left Lung location: unspecified part of lung Qualified Code(s): J18.9 - Pneumonia, unspecified organism Respiratory failure Qualifiers: Chronicity: acute Respiratory failure complication: hypoxia Qualified Code(s): J96.01 - Acute respiratory failure with hypoxia CHF (congestive heart failure) Qualifiers: Heart failure type: unspecified Heart failure chronicity: acute on chronic Qualified Code(s): I50.9 - Heart failure, unspecified Condition: Fair Critical Care Time: Yes Critical Care Time(excluding separately billable procedures): Critical 30-74 mins Referrals: SARAH AMIN DO [Primary Care Provider] - Instructions: Heart Failure
[2020-09-30] MEDS ORDERED: ROCEPHIN 1 Gm-D5w 50 ml Bag** 1 G/50 ML IVPB IV ONE (14:55)
[2020-09-30] MEDS: ROCEPHIN 1 Gm-D5w 50 ml Bag** 1 G/50 ML IVPB IV STA (15:05)
[2020-09-30] MEDS ORDERED: Zithromax 500 MG/ 250 ML NaCl Premix 500 MG/250 ML IVPB IV ONE (15:30)
[2020-09-30] MEDS: Zithromax 500 MG/ 250 ML NaCl Premix 500 MG/250 ML IVPB IV STA (15:33)
[2020-09-30 19:19] VITALS: BP 116/74; PULSE 101
[2020-09-30 20:48] VITALS: O2SAT 96
== END 2020-09-30 19:50 | disposition critical access hospital (66) ==
LOC: ED 11:30
DX: I95.9 Hypotension, unspecified (principal); E87.1 Hypo-osmolality and hyponatremia; D64.9 Anemia, unspecified; I50.9 Heart failure, unspecified; K74.60 Unspecified cirrhosis of liver; J96.01 Acute respiratory failure with hypoxia; J18.9 Pneumonia, unspecified organism; E11.9 Type 2 diabetes mellitus without complications; N18.9 Chronic kidney disease, unspecified; I10 Essential (primary) hypertension; E78.5 Hyperlipidemia, unspecified; J44.9 Chronic obstructive pulmonary disease, unspecified; R05 Cough; R07.9 Chest pain, unspecified; Z79.899 Other long term (current) drug therapy; F17.200 Nicotine dependence, unspecified, uncomplicated
CPT/HCPCS: 36000; 36415; 71045; 80053; 83605; 83735; 83880; 84484; 85025; 87040; 93005; 93041; 94640; 96365; 96367; 96374; 99285; J0456; J0696; J2930; A9270-GY

== ENCOUNTER 2020-11-23 09:40 | Emergency (ER) | payer MEDICARE ==
[2020-11-23 10:04] LABS: Absolute Neutrophil Ct (ANC) 10.04 (1.4-6.9); BASOPHIL % 0.2 % (0.0-0.4); Basophil (Absolute #) 0.03 (0-0.4); Eosinophil % 1.4 % (0.00-5.0); Eosinophil (Absolute #) 0.17 (0-0.5); Hematocrit 34.8 % (35-47); Hemoglobin 11.2 gm/dl (12.0-16.0); Lymphocyte (Absolute #) 1.27 (1.0-4.6); Lymphocytes % 10.5 % (24.0-44.0); Mean Corpuscular Hgb Concent. 32.2 g/dl (32-36); Mean Platelet Volume 9.7 fl (7.5-11.0); Monocyte (Absolute #) 0.53 (0.0-1.3); Monocytes % 4.4 % (0.0-12.0); Neutrophil % 83.5 % (36.0-66.0); Platelet Count 196 K/mm3 (150-450); Red Cell Distribution Width 17.3 % (11.5-14.0)
--- NOTE | 2020-11-23 10:07 | XRAY ---
Indication: Short of breath and dizziness. Known chronic ascites. Comparison: September 30, 2020. Portable chest again demonstrates diffuse bilateral interstitial opacities with new right base infiltrate versus atelectasis. Heart is not enlarged with stable right large bore double-lumen dialysis catheter. Bony thorax intact.
[2020-11-23 10:11] LABS: INR 1.31 (0.8-3.0); PROTIME 14.8 SECONDS (9.95-12.35)
[2020-11-23 10:14] LABS: PTT 37.1 SECONDS (25.3-37.0)
[2020-11-23 10:15] LABS: ANION GAP 14.4 MEQ/L (5-15); BILIRUBIN,TOTAL 0.6 mg/dL (0.2-1.3); Calcium 8.1 mg/dL (8.4-10.2); Creatinine 1 1.74 mg/dL (0.52-1.04); EST GLOMERULAR FILTRATION RATE 32.5 ML/MIN; Total Protein 6.6 g/dL (6.3-8.2)
--- NOTE | 2020-11-23 10:24 | ERPHSYRPT ---
- History of Present Illness Source: patient, EMS Exam Limitations: no limitations Patient Subjective Stated Complaint: Patient reports feeling sob since Monday. Also c/o headache. Triage Nursing Assessment: Pt presents to ED by EMS from dialysis center. Pt did NOT have run of dialysis. EMS was called due to sob. Pt reports she goes MWF, did not have a full run on Monday. 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 Pt reports recent cough (x1 month) with yellow sputum. Denies covid exposure or fever. Hx COPD. Tachycardia noted, rate 118. Sat's WNL on RA. Pt able to speak in full sentencews. BP stable. Skin PWD. Physician History: 55 yo wf w ESRD presents from dialysis w dyspnea x3 days. Pt gets dialysis M/W/Fr, but her session was cut short by 40min on Ft. She states that she has a cough x1+ months and was treated for pneumonia about 6 wks ago. Cough is non- productive, and fever is denied. She has a MOBLEY/N wo vomiting/diarrhea/melena/hematochezia. Timing/Duration: day(s) (3) Activities at Onset: rest Severity of Dyspnea-Max: mild Severity of Dyspnea-Current: mild Possible Cause: frequent episodes Modifying Factors: Improves With: exertion Associated Symptoms: wheezing, weakness, No chest pain/discomfort, No edema, No fever, No insomnia, No loss of appetite, No lightheadedness, No ankle swelling, No chills, No hemoptysis, No calf pain, No dizziness, No heaviness, No heart racing, No lightheadedness, No leg swelling, No muscle spasms feet, No muscle spasms hands, No painful breathing, No productive cough, No sweating, No tightness Allergies/Adverse Reactions: adhesive tape Allergy (Mild, Verified 11/23/20 09:56) redness clindamycin Adverse Reaction (Verified 11/23/20 09:56) Skin Irritation sunburn like redness and itching bee stings Allergy (Mild, Uncoded 11/23/20 09:56) Anaphylactic Reaction trouble breathing and swelling. Home Medications: Duloxetine HCl 30 mg [Cymbalta 30 MG Capsule] 30 mg PO BID 11/17/12 [History] Albuterol Sulfate [Proair Hfa] 2 puff IH Q4HPRN PRN 08/18/15 [History] Omeprazole 20 MG [Prilosec 20 mg] 20 mg PO DAILY 04/21/15 [History] Pravastatin Sodium [Pravachol] 10 mg PO HS 02/07/16 [History] Gabapentin [Gralise] 400 mg PO TID 11/11/16 [History] Docusate Sodium 100 mg [Colace 100 MG] 100 mg PO HSPRN PRN 01/18/19 [History] Ergocalciferol (Vitamin D2) [Vitamin D] 50,000 units PO CHEW 01/18/19 [History] Ferrous Sulfate 325 mg PO BID 01/18/19 [History] Hydroxyzine HCl 10 mg PO BID 01/18/19 [History] Levothyroxine Sodium 25 Mcg [Synthroid 25 Mcg] 25 mcg PO DAILY 01/18/19 [History] Insulin Glargine [Lantus Insulin] 30 units SQ HS 09/27/19 [History] Tiotropium [place] [Spiriva Respimat] 1 puff IH DAILY 10/14/19 [History] Lactulose [Lactulose 20 gm/30Ml Ud Cup] 20 gm PO TID 10/29/19 [History] Insulin Lispro [Humalog Kwikpen U-100] 10 unit SQ TIDWMEALS 03/27/20 [History] Promethazine HCl 25 mg [Phenergan 25 mg] 25 mg PO Q6HPRN PRN 03/27/20 [History] Hydrocodone/Acetaminophen [Hydrocodone-Acetamin 10-325 mg^^^] 1 ea PO BID 06/01/20 [History] Apixaban [Eliquis] 5 mg PO BID 06/21/20 [History] Nicotine 14 mg [Nicoderm Cq 14 mg] 14 mg TD Q24H 06/21/20 [History] Albuterol 2.5 mg/3 ml Neb [Proventil 2.5 mg/3 ml Neb] 1 ampul IH QID PRN 07/16/20 [History] Midodrine HCl 10 mg PO QID 09/30/20 [History] Hx Tetanus, Diphtheria Vaccination/Date Given: Yes Hx Influenza Vaccination/Date Given: No Hx Pneumococcal Vaccination/Date Given: Yes Travel Risk - International Travel Have you traveled outside of the country in past 3 weeks: No - Coronavirus Screening Are you exhibiting any of the following symptoms?: No Close contact with a COVID-19 positive Pt in past 14-21 Days: No - Review of Systems Constitutional: No Symptoms, Lethargy, Weakness Eyes: No Symptoms Ears, Nose, & Throat: No Symptoms Respiratory: Cough, Dyspnea, Dyspnea on Exertion ([place]) Cardiac: No Symptoms Abdominal/Gastrointestinal: No Symptoms Genitourinary Symptoms: No Symptoms Musculoskeletal: No Symptoms Skin: No Symptoms Neurological: No Symptoms Psychological: No Symptoms Endocrine: No Symptoms Hematologic/Lymphatic: No Symptoms Immunological/Allergic: No Symptoms - Past Medical History Pertinent Past Medical History: Yes Neurological History: No Pertinent History ENT History: No Pertinent History Cardiac History: Hypertension Respiratory History: Asthma, COPD, Pneumonia, Pulmonary Embolism Endocrine Medical History: Diabetes Type II, Hypoglycemia, Hypothyroidism Musculoskeletal History: Fractures GI Medical History: GERD, Other History: Renal Disease Psycho-Social History: Anxiety, Depression Female Reproductive Disorders: No Pertinent History Other Medical History: left ankle fx with mult surgeries, in February 2019 bka,. ascites. fatty liver - Past Surgical History Past Surgical History: Yes Neuro Surgical History: No Pertinent History Cardiac: No Pertinent History Respiratory: No Pertinent History Gastrointestinal: Cholecystectomy, Exploratory Laparoscopy Genitourinary: No Pertinent History Musculoskeletal: Amputation Female Surgical History: Section, Hysterectomy Other Surgical History: foot surgery, screw placed in left big toe, removal, and antibiotic bead placement. mult lt foot surgeries. LT BKA February 2019 - Social History Smoking Status: Current every day smoker How long have you smoked: 30+ Exposure to second hand smoke: Yes Drug Use: none Patient Lives Alone: Yes Significant Family History: no pertinent family hx - Female History Hx Last Menstrual Period: Hysterectomy - Nursing Vital Signs Nursing Vital Signs: Initial Vital Signs Temperature 97.7 F 11/23/20 09:47 Pulse Rate 119 H 11/23/20 09:47 Respiratory Rate 20 11/23/20 09:47 Blood Pressure 164/84 11/23/20 09:47 O2 Sat by Pulse Oximetry 94 L 11/23/20 09:47 Pain Scale Pain Intensity 0 - Physical Exam General Appearance: no apparent distress Eye Exam: PERRL/EOMI, eyes nml inspection Ears, Nose, Throat Exam: hearing grossly normal, normal ENT inspection, normal pharynx, No abnormal TM (R), No abnormal TM (L) Neck Exam: normal inspection, non-tender, supple, full range of motion, other (R IJ dialysis catheter), No Brudzinski, No Kernig's, No meningismus, No carotid bruit, No JVD, No limited range of motion Respiratory Exam: airway intact (Rales 1/2 up B, scattered wheezes) Cardiovascular/Chest Exam: tachycardia (Tachy wo M) Abdominal/Gastrointestinal Exam: soft, normal bowel sounds, No tenderness Extremity Exam: non-tender (L BKA) Neurologic Exam: alert, 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, 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, 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, normal mood/affect, No motor deficits, No sensory deficit Skin Exam: normal color, warm, dry SpO2 Interpretation: normal SpO2: 95 O2 Delivery: Room Air - Course Nursing assessment & vital signs reviewed: Yes EKG Interpreted by Me: RATE (Sinus tach/R113/Poor R wave progression/Normal QT- QTc) - Radiology Exams Chest X-ray Interpretation: Discussed w/ radiologist (B interstitual opacities w possible RLL infiltrate) Ordered Tests: Active Orders 24 hr Category Date Time Status EKG-ER Only STAT Care 11/23/20 10:43 Completed CHEST 1 VIEW (PORTABLE) Stat Exams 11/23/20 09:44 Completed BLOOD CULTURE Stat Lab 11/23/20 11:40 Received CBC W DIFF Stat Lab 11/23/20 09:55 Completed CMP Stat Lab 11/23/20 09:55 Completed Lactic Acid Stat Lab 11/23/20 10:09 Completed PROTIME WITH INR Stat Lab 11/23/20 09:55 Completed PTT Stat Lab 11/23/20 09:55 Completed Medication Summary Discontinued Medications Generic Name Dose Route Start Last Admin Trade Name Freq PRN Reason Stop Dose Admin Ceftriaxone Sodium/Dextrose 1 g in 50 mls @ 100 mls/hr 11/23/20 11:19 11/23/20 12:09 Rocephin 1 Gm-D5w 50 Ml Bag IV 11/23/20 11:48 Infused STAT STA Infusion Vancomycin HCl 1 gm in 200 mls @ 125 mls/hr 11/23/20 11:21 11/23/20 12:07 Vancomycin 1 Gram/200 Ml Bag IV 11/23/20 12:56 125 mls/hr STAT ONE 125 mls/hr Administration Ceftriaxone Sodium/Dextrose Confirm 11/23/20 11:28 Rocephin 1 Gm-D5w 50 Ml Bag Administered 11/23/20 11:29 Dose 1 g in 50 mls @ ud IV .STK-MED ONE Vancomycin HCl Confirm 11/23/20 11:48 Vancomycin 1 Gram/200 Ml Bag Administered 11/23/20 11:49 Dose 1 gm in 200 mls @ ud IV .STK-MED ONE Lab/Rad Data: Laboratory Result Diagrams 11/23/20 09:55 11/23/20 09:55 Laboratory Results 11/23/20 11/23/20 11/23/20 Range/Units 10:09 09:55 09:55 WBC (4.0-10.5) K/mm3 RBC (4.1-5.4) M/mm3 Hgb (12.0-16.0) gm/dl Hct (35-47) % MCV (78-100) fl MCH (26-32) pg MCHC (32-36) g/dl RDW (11.5-14.0) % Plt Count (150-450) K/mm3 MPV (7.5-11.0) fl Gran % (36.0-66.0) % Eos # (Auto) (0-0.5) Absolute Lymphs (auto) (1.0-4.6) Absolute Monos (auto) (0.0-1.3) Lymphocytes % (24.0-44.0) % Monocytes % (0.0-12.0) % Eosinophils % (0.00-5.0) % Basophils % (0.0-0.4) % Absolute Granulocytes (1.4-6.9) Basophils # (0-0.4) PT 14.8 H (9.95-12.35) SECONDS INR 1.31 (0.8-3.0) APTT 37.1 H (25.3-37.0) SECONDS Sodium (137-145) mmol/L Potassium (3.5-5.1) mmol/L Chloride (98-107) mmol/L Carbon Dioxide (22-30) mmol/L Anion Gap (5-15) MEQ/L BUN (7-17) mg/dL Creatinine (0.52-1.04) mg/dL Estimated GFR ML/MIN Glucose (74-106) mg/dL Lactic Acid 1.6 (0.4-2.0) Calcium (8.4-10.2) mg/dL Total Bilirubin (0.2-1.3) mg/dL AST (14-36) U/L ALT (0-35) U/L Alkaline Phosphatase (38-126) U/L Troponin 0.01 (0.00-0.03) ng/mL Serum Total Protein (6.3-8.2) g/dL Albumin (3.5-5.0) g/dL 11/23/20 11/23/20 Range/Units 09:55 09:55 WBC 12.0 H (4.0-10.5) K/mm3 RBC 4.00 L (4.1-5.4) M/mm3 Hgb 11.2 L (12.0-16.0) gm/dl Hct 34.8 L (35-47) % MCV 87.0 (78-100) fl MCH 28.0 (26-32) pg MCHC 32.2 (32-36) g/dl RDW 17.3 H (11.5-14.0) % Plt Count 196 (150-450) K/mm3 MPV 9.7 (7.5-11.0) fl Gran % 83.5 H (36.0-66.0) % Eos # (Auto) 0.17 (0-0.5) Absolute Lymphs (auto) 1.27 (1.0-4.6) Absolute Monos (auto) 0.53 (0.0-1.3) Lymphocytes % 10.5 L (24.0-44.0) % Monocytes % 4.4 (0.0-12.0) % Eosinophils % 1.4 (0.00-5.0) % Basophils % 0.2 (0.0-0.4) % Absolute Granulocytes 10.04 H (1.4-6.9) Basophils # 0.03 (0-0.4) PT (9.95-12.35) SECONDS INR (0.8-3.0) APTT (25.3-37.0) SECONDS Sodium 121 L (137-145) mmol/L Potassium 5.0 (3.5-5.1) mmol/L Chloride 84 L (98-107) mmol/L Carbon Dioxide 28 (22-30) mmol/L Anion Gap 14.4 (5-15) MEQ/L BUN 35 H (7-17) mg/dL Creatinine 1.74 H (0.52-1.04) mg/dL Estimated GFR 32.5 ML/MIN Glucose 315 H (74-106) mg/dL Lactic Acid (0.4-2.0) Calcium 8.1 L (8.4-10.2) mg/dL Total Bilirubin 0.60 (0.2-1.3) mg/dL AST 34 (14-36) U/L ALT 17 (0-35) U/L Alkaline Phosphatase 357 H (38-126) U/L Troponin (0.00-0.03) ng/mL Serum Total Protein 6.6 (6.3-8.2) g/dL Albumin 3.0 L (3.5-5.0) g/dL - Progress Progress Note: 11/23/20 11:[address] Kilpatrick at [facility]. 11/23/20 20:20 1gm IV Rocephin/!gm IV Vanc before transfer Pt in stable condition when care assumed by ambulance crew Counseled pt/family regarding: lab results, diagnosis - Departure Departure Disposition: Transfer Clinical Impression: Pneumonia, Fluid overload Condition: Stable Critical Care Time: No Referrals: SARAH AMIN DO [Primary Care Provider] -
[2020-11-23] MEDS ORDERED: ROCEPHIN 1 Gm-D5w 50 ml Bag** 1 G/50 ML IVPB IV STA (11:19)
[2020-11-23] MEDS ORDERED: VANCOMYCIN 1 GRAM/200 ML BAG 1 GM/200 ML PIGGYBACK IV ONE ×2 (11:21→11:48)
[2020-11-23] MEDS ORDERED: ROCEPHIN 1 Gm-D5w 50 ml Bag** 1 G/50 ML IVPB IV ONE (11:28)
[2020-11-23 12:05] VITALS: BP 156/89; PULSE 113
[2020-11-23 20:21] VITALS: O2SAT 95
== END 2020-11-23 12:17 | disposition short-term general hospital (02) ==
LOC: ED 09:40
DX: J18.9 Pneumonia, unspecified organism (principal)
CPT/HCPCS: 36000; 36415; 71045; 80053; 83605; 84484; 85025; 85610; 85730; 87040; 93005; 96365; 99285; J0696; J3370

== ENCOUNTER 2020-11-29 12:27 | Observation (INO) | payer MEDICARE ==
[2020-11-29] MEDS ORDERED: Lasix 40 MG/4 ML IV ONE (12:45)
[2020-11-29] MEDS ORDERED: Sodium Chloride 0.9% 1000 ML 1,000 ML IV SCH (12:45)
[2020-11-29] MEDS ORDERED: Lasix 40 MG/4 ML ONE (12:50)
--- NOTE | 2020-11-29 12:56 | ERPHSYRPT ---
- History of Present Illness Time Seen by Provider: 11/29/20 12:52 Source: patient Exam Limitations: no limitations Patient Subjective Stated Complaint: dizziness Triage Nursing Assessment: Patient brought back to ED via w/c and transferred to bed with assist of 1. Patient A+O X 3. Patient's skin pink, warm and dry. Patient complains of dizziness and increased SOB upon waking up this am. Patient is a dialysis patient and missed last monday's treatment, but was able to go on Monday. Patient's abdomen distended and hard with BS X 4. Patients has dx of ascites and is due to be tapped this coming . Lungs noted to have wheezing noted throughout. Patient denies pain or discomfort. Physician History: Patient is 55-year-old female with significant past medical history of chronic ascites COPD chronic renal failure for which patient is on dialysis was admitted at [facility] week ago with diagnosis of pneumonia and on further work-up it was found to have a more scar tissue in her lungs. Patient is undergoing weekly paracentesis for therapeutic purpose. Last paracentesis was 1 week ago. 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 She denies any fever chills nausea vomiting or chest pain. Timing/Duration: today Activities at Onset: none Severity of Dyspnea-Max: mild Severity of Dyspnea-Current: mild Possible Cause: frequent episodes Associated Symptoms: edema, wheezing, lightheadedness, No fever, No weakness Allergies/Adverse Reactions: adhesive tape Allergy (Mild, Verified 11/29/20 12:31) redness clindamycin Adverse Reaction (Verified 11/29/20 12:31) Skin Irritation sunburn like redness and itching bee stings Allergy (Mild, Uncoded 11/29/20 12:31) Anaphylactic Reaction trouble breathing and swelling. Home Medications: Duloxetine HCl 30 mg [Cymbalta 30 MG Capsule] 30 mg PO BID 11/17/12 [History] Albuterol Sulfate [Proair Hfa] 2 puff IH Q4HPRN PRN 04/21/15 [History] Omeprazole 20 MG [Prilosec 20 mg] 20 mg PO DAILY 04/21/15 [History] Pravastatin Sodium [Pravachol] 10 mg PO HS 02/07/16 [History] Gabapentin [Gralise] 400 mg PO TID 11/11/16 [History] Docusate Sodium 100 mg [Colace 100 MG] 100 mg PO HSPRN PRN 01/18/19 [History] Ergocalciferol (Vitamin D2) [Vitamin D] 50,000 units PO CHEW 01/18/19 [History] Ferrous Sulfate 325 mg PO BID 01/18/19 [History] Hydroxyzine HCl 10 mg PO BID 01/18/19 [History] Levothyroxine Sodium 25 Mcg [Synthroid 25 Mcg] 25 mcg PO DAILY 01/18/19 [History] Insulin Glargine [Lantus Insulin] 30 units SQ HS 09/27/19 [History] Tiotropium [place] [Spiriva Respimat] 1 puff IH DAILY 10/14/19 [History] Lactulose [Lactulose 20 gm/30Ml Ud Cup] 20 gm PO TID 10/29/19 [History] Insulin Lispro [Humalog Kwikpen U-100] 10 unit SQ TIDWMEALS 03/27/20 [History] Promethazine HCl 25 mg [Phenergan 25 mg] 25 mg PO Q6HPRN PRN 03/27/20 [History] Hydrocodone/Acetaminophen [Hydrocodone-Acetamin 10-325 mg^^^] 1 ea PO BID 06/01/20 [History] Apixaban [Eliquis] 5 mg PO BID 06/21/20 [History] Nicotine 14 mg [Nicoderm Cq 14 mg] 14 mg TD Q24H 06/21/20 [History] Albuterol 2.5 mg/3 ml Neb [Proventil 2.5 mg/3 ml Neb] 1 ampul IH QID PRN 07/16/20 [History] Midodrine HCl 10 mg PO QID 09/30/20 [History] Hx Tetanus, Diphtheria Vaccination/Date Given: Yes Hx Influenza Vaccination/Date Given: No Hx Pneumococcal Vaccination/Date Given: Yes Immunizations Up to Date: Yes Travel Risk - International Travel Have you traveled outside of the country in past 3 weeks: No - Coronavirus Screening Are you exhibiting any of the following symptoms?: No Close contact with a COVID-19 positive Pt in past 14-21 Days: No - Review of Systems Constitutional: Lethargy, Weakness Eyes: No Symptoms Ears, Nose, & Throat: No Symptoms Respiratory: Dyspnea, Dyspnea on Exertion ([place]), Wheezing Cardiac: No Symptoms Abdominal/Gastrointestinal: No Symptoms Genitourinary Symptoms: No Symptoms Musculoskeletal: No Symptoms Skin: No Symptoms Neurological: No Symptoms Psychological: No Symptoms Endocrine: No Symptoms - Past Medical History Pertinent Past Medical History: Yes Neurological History: No Pertinent History ENT History: No Pertinent History Cardiac History: Hypertension Respiratory History: Asthma, COPD, Pneumonia, Pulmonary Embolism Endocrine Medical History: Diabetes Type II, Hypoglycemia, Hypothyroidism Musculoskeletal History: Fractures GI Medical History: GERD, Other History: Renal Disease Psycho-Social History: Anxiety, Depression Female Reproductive Disorders: No Pertinent History Other Medical History: left ankle fx with mult surgeries, in February 2019 bka,. ascites. fatty liver - Past Surgical History Past Surgical History: Yes Neuro Surgical History: No Pertinent History Cardiac: No Pertinent History Respiratory: No Pertinent History Gastrointestinal: Cholecystectomy, Exploratory Laparoscopy Genitourinary: No Pertinent History Musculoskeletal: Amputation Female Surgical History: Section, Hysterectomy Other Surgical History: foot surgery, screw placed in left big toe, removal, and antibiotic bead placement. mult lt foot surgeries. LT BKA February 2019 - Social History Smoking Status: Current every day smoker How long have you smoked: 30+ Exposure to second hand smoke: Yes Drug Use: none Patient Lives Alone: Yes Significant Family History: no pertinent family hx - Female History Hx Now: No - Nursing Vital Signs Nursing Vital Signs: Initial Vital Signs Temperature 98.0 F 11/29/20 12:31 Pulse Rate 112 H 11/29/20 12:31 Respiratory Rate 32 H 11/29/20 12:31 Blood Pressure 182/90 11/29/20 12:31 O2 Sat by Pulse Oximetry 91 L 11/29/20 12:31 Pain Scale Pain Intensity 2 - Physical Exam General Appearance: moderate distress Eye Exam: PERRL/EOMI Ears, Nose, Throat Exam: hearing grossly normal Neck Exam: normal inspection Respiratory Exam: diminished breath sounds, crackles/rales, rhonchi, wheezing Cardiovascular/Chest Exam: tachycardia Abdominal/Gastrointestinal Exam: soft, distention, No mass, No guarding Rectal Exam: deferred Extremity Exam: normal inspection Neurologic Exam: alert, 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 Skin Exam: normal color SpO2 Interpretation: normal SpO2: 91 O2 Delivery: Room Air - Course Nursing assessment & vital signs reviewed: Yes - Radiology Exams Chest X-ray Interpretation: Reviewed by me (bibasilar scarring, moderate pleural effusion) Ordered Tests: Active Orders 24 hr Category Date Time Status EKG-ER Only STAT Care 11/29/20 12:45 Active CHEST 1 VIEW (PORTABLE) Stat Exams 11/29/20 12:46 Taken CBC W DIFF Stat Lab 11/29/20 13:19 Completed CMP Stat Lab 11/29/20 13:19 Completed Lactic Acid Stat Lab 11/29/20 13:19 Completed MAGNESIUM Stat Lab 11/29/20 13:19 Completed TROPONIN Stat Lab 11/29/20 13:19 Completed Medication Summary Generic Name Dose Route Start Last Admin Trade Name Freq PRN Reason Stop Dose Admin Sodium Chloride 1,000 mls @ 50 mls/hr 11/29/20 12:45 11/29/20 12:55 Sodium Chloride 0.9% 1000 Ml IV 12/29/20 12:44 50 mls/hr .Q20H TISHA Administration Discontinued Medications Generic Name Dose Route Start Last Admin Trade Name Freq PRN Reason Stop Dose Admin Furosemide 40 mg 11/29/20 12:45 11/29/20 12:56 Lasix 40 Mg/4 Ml IV 11/29/20 12:46 40 mg STAT ONE Administration Furosemide Confirm 11/29/20 12:50 Lasix 40 Mg/4 Ml Administered 11/29/20 12:51 Dose 40 mg .ROUTE .[facility] ONE Lab/Rad Data: Laboratory Result Diagrams 11/29/20 13:19 11/29/20 13:19 Laboratory Results 11/29/20 11/29/20 11/29/20 Range/Units 13:19 13:19 13:19 WBC 12.1 H (4.0-10.5) K/mm3 RBC 3.39 L (4.1-5.4) M/mm3 Hgb 9.6 L (12.0-16.0) gm/dl Hct 30.0 L (35-47) % MCV 88.5 (78-100) fl MCH 28.3 (26-32) pg MCHC 32.0 (32-36) g/dl RDW 16.6 H (11.5-14.0) % Plt Count 218 (150-450) K/mm3 MPV 9.4 (7.5-11.0) fl Gran % 83.0 H (36.0-66.0) % Eos # (Auto) 0.25 (0-0.5) Absolute Lymphs (auto) 0.99 L (1.0-4.6) Absolute Monos (auto) 0.77 (0.0-1.3) Lymphocytes % 8.2 L (24.0-44.0) % Monocytes % 6.3 (0.0-12.0) % Eosinophils % 2.1 (0.00-5.0) % Basophils % 0.4 (0.0-0.4) % Absolute Granulocytes 10.07 H (1.4-6.9) Basophils # 0.05 (0-0.4) Sodium 121 L (137-145) mmol/L Potassium 4.7 (3.5-5.1) mmol/L Chloride 85 L (98-107) mmol/L Carbon Dioxide 28 (22-30) mmol/L Anion Gap 12.3 (5-15) MEQ/L BUN 27 H (7-17) mg/dL Creatinine 1.42 H (0.52-1.04) mg/dL Estimated GFR 41.1 ML/MIN Glucose 414 H (74-106) mg/dL Lactic Acid 1.4 (0.4-2.0) Calcium 8.0 L (8.4-10.2) mg/dL Magnesium 1.7 (1.6-2.3) mg/dL Total Bilirubin 0.40 (0.2-1.3) mg/dL AST 24 (14-36) U/L ALT 22 (0-35) U/L Alkaline Phosphatase 306 H (38-126) U/L Ammonia (9-30) umol/L Troponin I < 0.012 (0.000-0.034) ng/mL Serum Total Protein 5.9 L (6.3-8.2) g/dL Albumin 2.7 L (3.5-5.0) g/dL 11/29/20 Range/Units 13:18 WBC (4.0-10.5) K/mm3 RBC (4.1-5.4) M/mm3 Hgb (12.0-16.0) gm/dl Hct (35-47) % MCV (78-100) fl MCH (26-32) pg MCHC (32-36) g/dl RDW (11.5-14.0) % Plt Count (150-450) K/mm3 MPV (7.5-11.0) fl Gran % (36.0-66.0) % Eos # (Auto) (0-0.5) Absolute Lymphs (auto) (1.0-4.6) Absolute Monos (auto) (0.0-1.3) Lymphocytes % (24.0-44.0) % Monocytes % (0.0-12.0) % Eosinophils % (0.00-5.0) % Basophils % (0.0-0.4) % Absolute Granulocytes (1.4-6.9) Basophils # (0-0.4) Sodium (137-145) mmol/L Potassium (3.5-5.1) mmol/L Chloride (98-107) mmol/L Carbon Dioxide (22-30) mmol/L Anion Gap (5-15) MEQ/L BUN (7-17) mg/dL Creatinine (0.52-1.04) mg/dL Estimated GFR ML/MIN Glucose (74-106) mg/dL Lactic Acid (0.4-2.0) Calcium (8.4-10.2) mg/dL Magnesium (1.6-2.3) mg/dL Total Bilirubin (0.2-1.3) mg/dL AST (14-36) U/L ALT (0-35) U/L Alkaline Phosphatase (38-126) U/L Ammonia < 9 L (9-30) umol/L Troponin I (0.000-0.034) ng/mL Serum Total Protein (6.3-8.2) g/dL Albumin (3.5-5.0) g/dL - Progress Progress: unchanged Air Movement: fair Blood Culture(s) Obtained: No Antibiotics given: No Discussed with Dr.: Beka Puckett Will see patient in: hospital (observation) Counseled pt/family regarding: lab results, diagnosis, need for follow-up, rad results - Departure Departure Disposition: Observation Clinical Impression: Shortness of breath, Hyponatremia Renal failure (ARF), acute on chronic Qualifiers: Acute renal failure type: unspecified Chronic kidney disease stage: on chronic dialysis Qualified Code(s): N17.9 - Acute kidney failure, unspecified; N18.9 - Chronic kidney disease, unspecified; Z99.2 - Dependence on renal dialysis Condition: Fair Critical Care Time: Yes Critical Care Time(excluding separately billable procedures): Critical 30-74 mins Referrals: SARAH AMIN DO [Primary Care Provider] -
[2020-11-29 13:30] LABS: Absolute Neutrophil Ct (ANC) 10.07 (1.4-6.9); BASOPHIL % 0.4 % (0.0-0.4); Basophil (Absolute #) 0.05 (0-0.4); Eosinophil % 2.1 % (0.00-5.0); Eosinophil (Absolute #) 0.25 (0-0.5); Hemoglobin 9.6 gm/dl (12.0-16.0); Lymphocyte (Absolute #) 0.99 (1.0-4.6); Lymphocytes % 8.2 % (24.0-44.0); Mean Cell Volume 88.5 fl (78-100); Mean Corpuscular Hemoglobin 28.3 pg (26-32); Mean Platelet Volume 9.4 fl (7.5-11.0); Monocyte (Absolute #) 0.77 (0.0-1.3); Monocytes % 6.3 % (0.0-12.0); Platelet Count 218 K/mm3 (150-450); Red Blood Count 3.39 M/mm3 (4.1-5.4); Red Cell Distribution Width 16.6 % (11.5-14.0); White Blood Count 12.1 K/mm3 (4.0-10.5)
[2020-11-29 13:42] LABS: ALBUMIN 2.7 g/dL (3.5-5.0); ALKALINE PHOSPHATASE 306 U/L (38-126); ANION GAP 12.3 MEQ/L (5-15); BLOOD UREA NITROGEN 27 mg/dL (7-17); CHLORIDE 85 mmol/L (98-107); Carbon Dioxide 28 mmol/L (22-30); Creatinine 1 1.42 mg/dL (0.52-1.04); EST GLOMERULAR FILTRATION RATE 41.1 ML/MIN; Glucose 414 mg/dL (74-106); MAGNESIUM 1.7 mg/dL (1.6-2.3); Potassium 4.7 mmol/L (3.5-5.1); SGOT/AST 24 U/L (14-36); SGPT/ALT 22 U/L (0-35); SODIUM 121 mmol/L (137-145); TROPONIN < 0.012 ng/mL (0.000-0.034); Total Protein 5.9 g/dL (6.3-8.2)
[2020-11-29 14:55] LABS: INFLUENZA A NEGATIVE (NEGATIVE); INFLUENZA B NEGATIVE (NEGATIVE); RESPIRATORY SYNCTIAL VIRUS NEGATIVE (Negative)
[2020-11-29] MEDS ORDERED: PROVENTIL 2.5 MG/3 ML NEB IH PRN (15:53)
[2020-11-29] MEDS ORDERED: HUMALOG SQ PRN (16:48)
[2020-11-29] MEDS ORDERED: ZOFRAN ODT 4 MG PO PRN (16:51)
[2020-11-29] MEDS ORDERED: Colace 100 MG PO PRN (16:51)
[2020-11-29] MEDS ORDERED: PHENERGAN 25 MG PO PRN (16:51)
[2020-11-29] MEDS ORDERED: NICODERM CQ 14 MG TD SCH (17:00)
[2020-11-29] MEDS ORDERED: MIDODRINE HCL 10 MG PO SCH (17:00)
[2020-11-29] MEDS ORDERED: INSULIN LISPRO 10 UNIT SQ SCH (17:00)
[2020-11-29] MEDS: HUMALOG SQ SCH (17:17)
--- NOTE | 2020-11-29 18:36 | XRAY ---
Indication: Short of breath. Comparison: November 23, 2020. Portable chest unchanged again demonstrating diffuse bilateral interstitial opacities with right base infiltrate/atelectasis. Heart is not enlarged with stable right double-lumen dialysis catheter. No new cardiopulmonary abnormalities.
[2020-11-29 18:48] LABS: INR 1.66 (0.8-3.0); PROTIME 18.8 SECONDS (9.95-12.35)
[2020-11-29] MEDS: PROVENTIL 2.5 MG/3 ML NEB IH SCH (19:25)
[2020-11-29] MEDS: Lantus Insulin SQ SCH (20:59)
[2020-11-29] MEDS: Cymbalta 30 MG Capsule PO SCH (21:01)
[2020-11-29] MEDS: HYDROCODONE-ACETAMIN 10-325 MG PO SCH (21:01)
[2020-11-29] MEDS: FEOSOL 325 MG PO SCH (21:01)
[2020-11-29] MEDS: ATARAX 25 MG PO SCH (21:01)
[2020-11-29] MEDS: Neurontin 400 MG PO SCH (21:02)
[2020-11-29] MEDS: PROAMATINE 5 MG PO SCH (21:03)
[2020-11-29] MEDS: OMNICEF 300 MG PO SCH (21:03)
[2020-11-29] MEDS ORDERED: ELIQUIS 2.5 MG TABLET PO SCH (22:00)
[2020-11-29] MEDS ORDERED: GABAPENTIN 400 MG PO SCH (22:00)
[2020-11-29] MEDS ORDERED: CEFDINIR 300 MG PO SCH (22:00)
[2020-11-29] MEDS ORDERED: NON-FORMULARY ITEM (Apixaban [Eliquis] 5 MG) PO SCH (22:00)
[2020-11-29] MEDS ORDERED: NON-FORMULARY ITEM (Hydroxyzine Hcl [Hydroxyzine Hcl] 10 MG) PO SCH (22:00)
[2020-11-30 05:01] LABS: Absolute Neutrophil Ct (ANC) 7.16 (1.4-6.9); BASOPHIL % 0.3 % (0.0-0.4); Basophil (Absolute #) 0.03 (0-0.4); Eosinophil % 2.1 % (0.00-5.0); Hematocrit 29.1 % (35-47); Hemoglobin 9.3 gm/dl (12.0-16.0); Lymphocyte (Absolute #) 1.56 (1.0-4.6); Lymphocytes % 16.2 % (24.0-44.0); Mean Corpuscular Hemoglobin 28.4 pg (26-32); Mean Platelet Volume 9.2 fl (7.5-11.0); Monocyte (Absolute #) 0.67 (0.0-1.3); Neutrophil % 74.4 % (36.0-66.0); Platelet Count 211 K/mm3 (150-450); Red Blood Count 3.27 M/mm3 (4.1-5.4); Red Cell Distribution Width 16.6 % (11.5-14.0); White Blood Count 9.6 K/mm3 (4.0-10.5)
[2020-11-30 05:28] LABS: ANION GAP 17.4 MEQ/L (5-15); Calcium 7.9 mg/dL (8.4-10.2); Creatinine 1 1.26 mg/dL (0.52-1.04); EST GLOMERULAR FILTRATION RATE 47.2 ML/MIN; PHOSPHOROUS 4.2 mg/dL (2.5-4.5); Potassium 4.3 mmol/L (3.5-5.1)
[2020-11-30] MEDS: PROVENTIL 2.5 MG/3 ML NEB IH SCH ×2 (06:48→11:16)
[2020-11-30] MEDS: Spiriva 18 Mcg/Cap Inhaler IH SCH ×2 (06:48→09:25)
[2020-11-30] MEDS ORDERED: SYNTHROID 25 MCG PO SCH ×2 (07:00→10:00)
[2020-11-30] MEDS: HUMALOG SQ SCH ×2 (07:20→12:18)
[2020-11-30] MEDS: Lantus Insulin SQ SCH ×2 (07:20→12:19)
[2020-11-30] MEDS: ATARAX 25 MG PO SCH (08:57)
[2020-11-30] MEDS: Neurontin 400 MG PO SCH (08:57)
[2020-11-30] MEDS: FEOSOL 325 MG PO SCH (08:58)
[2020-11-30] MEDS: Cymbalta 30 MG Capsule PO SCH (08:58)
[2020-11-30] MEDS: OMNICEF 300 MG PO SCH (08:59)
[2020-11-30] MEDS: PROAMATINE 5 MG PO SCH ×2 (08:59→12:14)
[2020-11-30] MEDS: HYDROCODONE-ACETAMIN 10-325 MG PO SCH (09:02)
[2020-11-30] MEDS ORDERED: DELTASONE 10 MG PO SCH (10:00)
[2020-11-30] MEDS ORDERED: Protonix 40MG Tablet PO SCH (10:00)
[2020-11-30] MEDS ORDERED: NON-FORMULARY ITEM (Omeprazole 20 Mg [Prilosec 20 Mg] 20 MG) PO SCH (10:00)
[2020-11-30 11:22] VITALS: O2SAT 99
[2020-11-30 11:41] VITALS: BP 162/70; PULSE 105
--- NOTE | 2020-11-30 12:02 | XRAY ---
Indication: Chronic ascites. Bedside paracentesis was performed. Informed consent obtained. Patient placed supine. Initial 4 quadrant abdominal ultrasound performed for localization. Largest pocket identified in the right midabdomen. The abdominal wall was prepped and draped in sterile fashion. 1% lidocaine plain was used for local anesthesia. Tiny skin incision made. 5 [employer] paracentesis needle/catheter was then percutaneously inserted. Once fluid was aspirating, the outer catheter was then advanced with the inner needle removed. Catheter was connected to a Vacutainer. Approximately 8.4 L of clear almaz colored transudative fluid aspirated and disposed of properly. Repeat sonogram demonstrates marked improvement with very tiny residual. Catheter removed. Steri-Strips and Band-Aid applied over the puncture site. Impression: Technically successful ultrasound guided abdominal paracentesis for therapeutic purpose. No immediate complications or blood loss.
--- NOTE | 2020-11-30 12:10 | PCM.DCORD ---
- Discharge Disposition: HOME HEALTH SERVICE Condition: Fair Prescriptions: Continue Duloxetine HCl 30 mg [Cymbalta 30 MG Capsule] 30 mg PO BID Omeprazole 20 MG [Prilosec 20 mg] 20 mg PO DAILY Albuterol Sulfate [Proair Hfa] 2 puff IH Q4HPRN PRN PRN Reason: RESP Pravastatin Sodium [Pravachol] 10 mg PO HS Gabapentin [Gralise] 400 mg PO TID Docusate Sodium 100 mg [Colace 100 MG] 100 mg PO HSPRN PRN PRN Reason: Constipation Ergocalciferol (Vitamin D2) [Vitamin D] 50,000 units PO CHEW Hydroxyzine HCl 10 mg PO BID Ferrous Sulfate 325 mg PO BID Levothyroxine Sodium 25 Mcg [Synthroid 25 Mcg] 25 mcg PO DAILY Ondansetron ODT 4 MG [Zofran Odt 4 mg] 4 mg PO Q6H PRN PRN #10 tab.rapdis PRN Reason: Vomiting Insulin Glargine [Lantus Insulin] 20 units SQ BID Tiotropium [place] [Spiriva Respimat] 1 puff IH DAILY Insulin Lispro [Humalog Kwikpen U-100] 10 unit SQ TIDWMEALS Promethazine HCl 25 mg [Phenergan 25 mg] 25 mg PO Q6HPRN PRN PRN Reason: Nausea/Vomiting Hydrocodone/Acetaminophen [Hydrocodone-Acetamin 10-325 mg^^^] 1 ea PO BID Apixaban [Eliquis] 5 mg PO BID Nicotine 14 mg [Nicoderm Cq 14 mg] 14 mg TD Q24H Albuterol 2.5 mg/3 ml Neb [Proventil 2.5 mg/3 ml Neb] 1 ampul IH QID PRN Midodrine HCl 10 mg PO QID Prednisone 10 mg [Deltasone 10 mg] 10 mg PO DAILY Cefdinir [Omnicef 300 mg] 300 mg PO BID Instructions: Chronic Kidney Disease Follow up with: SARAH AMIN DO [Primary Care Provider] -
--- NOTE | 2020-11-30 12:16 | PCM.SSS ---
History of Present Illness - Chief Complaint Chief Complaint: severe hypontremia, ac renal failure, CHF History of Present Illness: is a 55 year old female who presented to ER with dyspnea,increase in ascities. Was discharged from [facility] less than a week ago treated for COPD exacerbation/acute bronchitis. 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,COPD oxygen dependent,HTN ,S/P LBKA, Medications & Allergies Home Medications: Home Medication List Duloxetine HCl 30 mg [Cymbalta 30 MG Capsule] 30 mg PO BID 11/17/12 [History Confirmed 11/29/20] Albuterol Sulfate [Proair Hfa] 2 puff IH Q4HPRN PRN 04/21/15 [History Confirmed 11/29/20] Omeprazole 20 MG [Prilosec 20 mg] 20 mg PO DAILY 04/21/15 [History Confirmed 11/29/20] Pravastatin Sodium [Pravachol] 10 mg PO HS 02/07/16 [History Confirmed 11/29/20] Gabapentin [Gralise] 400 mg PO TID 11/11/16 [History Confirmed 11/29/20] Docusate Sodium 100 mg [Colace 100 MG] 100 mg PO HSPRN PRN 01/18/19 [History Confirmed 11/29/20] Ergocalciferol (Vitamin D2) [Vitamin D] 50,000 units PO CHEW 01/18/19 [History Confirmed 11/29/20] Ferrous Sulfate 325 mg PO BID 01/18/19 [History Confirmed 11/29/20] Hydroxyzine HCl 10 mg PO BID 01/18/19 [History Confirmed 11/29/20] Levothyroxine Sodium 25 Mcg [Synthroid 25 Mcg] 25 mcg PO DAILY 01/18/19 [History Confirmed 11/29/20] Ondansetron ODT 4 MG [Zofran Odt 4 mg] 4 mg PO Q6H PRN PRN #10 tab.rapdis 07/11/19 [Rx Confirmed 11/29/20] Insulin Glargine [Lantus Insulin] 20 units SQ BID 09/27/19 [History Confirmed 11/29/20] Tiotropium [place] [Spiriva Respimat] 1 puff IH DAILY 10/14/19 [History Confirmed 11/29/20] Insulin Lispro [Humalog Kwikpen U-100] 10 unit SQ TIDWMEALS 03/27/20 [History Confirmed 11/29/20] Promethazine HCl 25 mg [Phenergan 25 mg] 25 mg PO Q6HPRN PRN 03/27/20 [History Confirmed 11/29/20] Hydrocodone/Acetaminophen [Hydrocodone-Acetamin 10-325 mg^^^] 1 ea PO BID 06/01/20 [History Confirmed 11/29/20] Apixaban [Eliquis] 5 mg PO BID 06/21/20 [History Confirmed 11/29/20] Nicotine 14 mg [Nicoderm Cq 14 mg] 14 mg TD Q24H 06/21/20 [History Confirmed 11/29/20] Albuterol 2.5 mg/3 ml Neb [Proventil 2.5 mg/3 ml Neb] 1 ampul IH QID PRN 07/16/20 [History Confirmed 11/29/20] Midodrine HCl 10 mg PO QID 09/30/20 [History Confirmed 11/29/20] Cefdinir [Omnicef 300 mg] 300 mg PO BID 11/29/20 [History Confirmed 11/29/20] Prednisone 10 mg [Deltasone 10 mg] 10 mg PO DAILY 11/29/20 [History Confirmed 11/29/20] Allergies/Adverse Reactions: Allergies Allergy/AdvReac Type Severity Reaction Status Date / Time adhesive tape Allergy Mild Verified 11/29/20 12:31 clindamycin AdvReac Skin Verified 11/29/20 12:31 Irritation bee stings Allergy Mild Anaphylactic Uncoded 11/29/20 12:31 Reaction - Past Medical History Past Medical History: Yes Neurological History: Peripheral Neuropathy ENT History: No Pertinent History Cardiac History: Deep Vein Thrombosis, Hypertension Respiratory History: Asthma, CHF, COPD, Pneumonia, Pulmonary Embolism Endocrine Medical History: Diabetes Type II, Hypoglycemia, Hypothyroidism Musculoskelatal History: Fractures GI Medical History: GERD, Other History: Renal Disease Pyscho-Social History: Anxiety, Depression Reproductive Disorders: Fibroids Comment: left ankle fx with mult surgeries, in February 2019 bka,. ascites. fatty liver - Female History Are you now?: No - Past Surgical History Past Surgical History: Yes Neuro Surgical History: No Pertinent History Cardiac History: No Pertinent History Respiratory Surgery: No Pertinent History GI Surgical History: Cholecystectomy, Exploratory Laparoscopy Genitourinary Surgical Hx: No Pertinent History Musculskeletal Surgical Hx: Amputation Female Surgical History: Section, Hysterectomy Other Surgical History: foot surgery, screw placed in left big toe, removal, and antibiotic bead placement. mult lt foot surgeries. LT BKA February 2019 - Social History Smoking Status: Current every day smoker How long have you smoked: "35 years" Exposure to second hand smoke: Yes Alcohol: None Drug Use: none Significant Family History: no pertinent family hx - Physical Exam Vital Signs: Vital Signs - 24 hr Temp Pulse Resp BP Pulse Ox 11/30/20 11:35 98.4 F 105 H 16 162/70 99 11/30/20 11:19 102 H 18 99 11/30/20 07:42 97.9 F 101 H 18 145/67 100 11/30/20 06:51 100 H 16 98 11/30/20 04:00 97.7 F 97 H 20 131/68 94 L 11/29/20 23:38 98.4 F 101 H 24 162/74 97 11/29/20 20:00 98.0 F 109 H 22 158/70 97 11/29/20 19:25 110 H 24 97 11/29/20 17:56 98.4 F 98 H 24 180/77 97 11/29/20 16:24 109 H 24 97 11/29/20 14:05 91 L 11/29/20 13:37 108 H 24 155/65 98 11/29/20 12:31 98.0 F 112 H 32 H 182/90 91 L Oxygen-Last 24 hours Oxygen Flowrate (L/min)-RT 2 Results - Labs Lab/Micro Results: Lab Results-Last 24 Hours 11/29/20 11/29/20 11/29/20 Range/Units 12:45 13:18 13:19 WBC 12.1 H (4.0-10.5) K/mm3 RBC 3.39 L (4.1-5.4) M/mm3 Hgb 9.6 L (12.0-16.0) gm/dl Hct 30.0 L (35-47) % MCV 88.5 (78-100) fl MCH 28.3 (26-32) pg MCHC 32.0 (32-36) g/dl RDW 16.6 H (11.5-14.0) % Plt Count 218 (150-450) K/mm3 MPV 9.4 (7.5-11.0) fl Gran % 83.0 H (36.0-66.0) % Eos # (Auto) 0.25 (0-0.5) Absolute Lymphs (auto) 0.99 L (1.0-4.6) Absolute Monos (auto) 0.77 (0.0-1.3) Lymphocytes % 8.2 L (24.0-44.0) % Monocytes % 6.3 (0.0-12.0) % Eosinophils % 2.1 (0.00-5.0) % Basophils % 0.4 (0.0-0.4) % Absolute Granulocytes 10.07 H (1.4-6.9) Basophils # 0.05 (0-0.4) PT (9.95-12.35) SECONDS INR (0.8-3.0) Sodium (137-145) mmol/L Potassium (3.5-5.1) mmol/L Chloride (98-107) mmol/L Carbon Dioxide (22-30) mmol/L Anion Gap (5-15) MEQ/L BUN (7-17) mg/dL Creatinine (0.52-1.04) mg/dL Estimated GFR ML/MIN Glucose (74-106) mg/dL POC Glucometer (74 to 106) mg/dL Hemoglobin A1c 6.48 H (4.5-6.0) % Lactic Acid (0.4-2.0) Calcium (8.4-10.2) mg/dL Phosphorus (2.5-4.5) mg/dL Magnesium (1.6-2.3) mg/dL Total Bilirubin (0.2-1.3) mg/dL AST (14-36) U/L ALT (0-35) U/L Alkaline Phosphatase (38-126) U/L Ammonia < 9 L (9-30) umol/L Troponin I (0.000-0.034) ng/mL Serum Total Protein (6.3-8.2) g/dL Albumin (3.5-5.0) g/dL Prealbumin (17.6-36.0) mg/dL Influenza Type A Ag (NEGATIVE) Influenza Type B Ag (NEGATIVE) RSV (PCR) (Negative) SARS-CoV-2 (PCR) (NEGATIVE) 11/29/20 11/29/20 11/29/20 Range/Units 13:19 13:19 13:39 WBC (4.0-10.5) K/mm3 RBC (4.1-5.4) M/mm3 Hgb (12.0-16.0) gm/dl Hct (35-47) % MCV (78-100) fl MCH (26-32) pg MCHC (32-36) g/dl RDW (11.5-14.0) % Plt Count (150-450) K/mm3 MPV (7.5-11.0) fl Gran % (36.0-66.0) % Eos # (Auto) (0-0.5) Absolute Lymphs (auto) (1.0-4.6) Absolute Monos (auto) (0.0-1.3) Lymphocytes % (24.0-44.0) % Monocytes % (0.0-12.0) % Eosinophils % (0.00-5.0) % Basophils % (0.0-0.4) % Absolute Granulocytes (1.4-6.9) Basophils # (0-0.4) PT (9.95-12.35) SECONDS INR (0.8-3.0) Sodium 121 L (137-145) mmol/L Potassium 4.7 (3.5-5.1) mmol/L Chloride 85 L (98-107) mmol/L Carbon Dioxide 28 (22-30) mmol/L Anion Gap 12.3 (5-15) MEQ/L BUN 27 H (7-17) mg/dL Creatinine 1.42 H (0.52-1.04) mg/dL Estimated GFR 41.1 ML/MIN Glucose 414 H (74-106) mg/dL POC Glucometer (74 to 106) mg/dL Hemoglobin A1c (4.5-6.0) % Lactic Acid 1.4 (0.4-2.0) Calcium 8.0 L (8.4-10.2) mg/dL Phosphorus (2.5-4.5) mg/dL Magnesium 1.7 (1.6-2.3) mg/dL Total Bilirubin 0.40 (0.2-1.3) mg/dL AST 24 (14-36) U/L ALT 22 (0-35) U/L Alkaline Phosphatase 306 H (38-126) U/L Ammonia (9-30) umol/L Troponin I < 0.012 (0.000-0.034) ng/mL Serum Total Protein 5.9 L (6.3-8.2) g/dL Albumin 2.7 L (3.5-5.0) g/dL Prealbumin 7.91 L (17.6-36.0) mg/dL Influenza Type A Ag (NEGATIVE) Influenza Type B Ag (NEGATIVE) RSV (PCR) (Negative) SARS-CoV-2 (PCR) (NEGATIVE) 11/29/20 11/29/20 11/29/20 Range/Units 13:39 14:11 16:29 WBC (4.0-10.5) K/mm3 RBC (4.1-5.4) M/mm3 Hgb (12.0-16.0) gm/dl Hct (35-47) % MCV (78-100) fl MCH (26-32) pg MCHC (32-36) g/dl RDW (11.5-14.0) % Plt Count (150-450) K/mm3 MPV (7.5-11.0) fl Gran % (36.0-66.0) % Eos # (Auto) (0-0.5) Absolute Lymphs (auto) (1.0-4.6) Absolute Monos (auto) (0.0-1.3) Lymphocytes % (24.0-44.0) % Monocytes % (0.0-12.0) % Eosinophils % (0.00-5.0) % Basophils % (0.0-0.4) % Absolute Granulocytes (1.4-6.9) Basophils # (0-0.4) PT 18.8 H (9.95-12.35) SECONDS INR 1.66 (0.8-3.0) Sodium (137-145) mmol/L Potassium (3.5-5.1) mmol/L Chloride (98-107) mmol/L Carbon Dioxide (22-30) mmol/L Anion Gap (5-15) MEQ/L BUN (7-17) mg/dL Creatinine (0.52-1.04) mg/dL Estimated GFR ML/MIN Glucose (74-106) mg/dL POC Glucometer 342 H (74 to 106) mg/dL Hemoglobin A1c (4.5-6.0) % Lactic Acid (0.4-2.0) Calcium (8.4-10.2) mg/dL Phosphorus (2.5-4.5) mg/dL Magnesium (1.6-2.3) mg/dL Total Bilirubin (0.2-1.3) mg/dL AST (14-36) U/L ALT (0-35) U/L Alkaline Phosphatase (38-126) U/L Ammonia (9-30) umol/L Troponin I (0.000-0.034) ng/mL Serum Total Protein (6.3-8.2) g/dL Albumin (3.5-5.0) g/dL Prealbumin (17.6-36.0) mg/dL Influenza Type A Ag NEGATIVE (NEGATIVE) Influenza Type B Ag NEGATIVE (NEGATIVE) RSV (PCR) NEGATIVE (Negative) SARS-CoV-2 (PCR) NEGATIVE (NEGATIVE) 11/29/20 11/30/20 11/30/20 Range/Units 20:28 04:20 04:20 WBC 9.6 (4.0-10.5) K/mm3 RBC 3.27 L (4.1-5.4) M/mm3 Hgb 9.3 L (12.0-16.0) gm/dl Hct 29.1 L (35-47) % MCV 89.0 (78-100) fl MCH 28.4 (26-32) pg MCHC 32.0 (32-36) g/dl RDW 16.6 H (11.5-14.0) % Plt Count 211 (150-450) K/mm3 MPV 9.2 (7.5-11.0) fl Gran % 74.4 H (36.0-66.0) % Eos # (Auto) 0.20 (0-0.5) Absolute Lymphs (auto) 1.56 (1.0-4.6) Absolute Monos (auto) 0.67 (0.0-1.3) Lymphocytes % 16.2 L (24.0-44.0) % Monocytes % 7.0 (0.0-12.0) % Eosinophils % 2.1 (0.00-5.0) % Basophils % 0.3 (0.0-0.4) % Absolute Granulocytes 7.16 H (1.4-6.9) Basophils # 0.03 (0-0.4) PT (9.95-12.35) SECONDS INR (0.8-3.0) Sodium 123 L (137-145) mmol/L Potassium 4.3 (3.5-5.1) mmol/L Chloride 86 L (98-107) mmol/L Carbon Dioxide 23 (22-30) mmol/L Anion Gap 17.4 H (5-15) MEQ/L BUN 33 H (7-17) mg/dL Creatinine 1.26 H (0.52-1.04) mg/dL Estimated GFR 47.2 ML/MIN Glucose 266 H (74-106) mg/dL POC Glucometer 428 H (74 to 106) mg/dL Hemoglobin A1c (4.5-6.0) % Lactic Acid (0.4-2.0) Calcium 7.9 L (8.4-10.2) mg/dL Phosphorus 4.2 (2.5-4.5) mg/dL Magnesium (1.6-2.3) mg/dL Total Bilirubin (0.2-1.3) mg/dL AST (14-36) U/L ALT (0-35) U/L Alkaline Phosphatase (38-126) U/L Ammonia (9-30) umol/L Troponin I (0.000-0.034) ng/mL Serum Total Protein (6.3-8.2) g/dL Albumin 3.0 L (3.5-5.0) g/dL Prealbumin (17.6-36.0) mg/dL Influenza Type A Ag (NEGATIVE) Influenza Type B Ag (NEGATIVE) RSV (PCR) (Negative) SARS-CoV-2 (PCR) (NEGATIVE) 11/30/20 11/30/20 Range/Units 07:15 11:10 WBC (4.0-10.5) K/mm3 RBC (4.1-5.4) M/mm3 Hgb (12.0-16.0) gm/dl Hct (35-47) % MCV (78-100) fl MCH (26-32) pg MCHC (32-36) g/dl RDW (11.5-14.0) % Plt Count (150-450) K/mm3 MPV (7.5-11.0) fl Gran % (36.0-66.0) % Eos # (Auto) (0-0.5) Absolute Lymphs (auto) (1.0-4.6) Absolute Monos (auto) (0.0-1.3) Lymphocytes % (24.0-44.0) % Monocytes % (0.0-12.0) % Eosinophils % (0.00-5.0) % Basophils % (0.0-0.4) % Absolute Granulocytes (1.4-6.9) Basophils # (0-0.4) PT (9.95-12.35) SECONDS INR (0.8-3.0) Sodium (137-145) mmol/L Potassium (3.5-5.1) mmol/L Chloride (98-107) mmol/L Carbon Dioxide (22-30) mmol/L Anion Gap (5-15) MEQ/L BUN (7-17) mg/dL Creatinine (0.52-1.04) mg/dL Estimated GFR ML/MIN Glucose (74-106) mg/dL POC Glucometer 186 H 155 H (74 to 106) mg/dL Hemoglobin A1c (4.5-6.0) % Lactic Acid (0.4-2.0) Calcium (8.4-10.2) mg/dL Phosphorus (2.5-4.5) mg/dL Magnesium (1.6-2.3) mg/dL Total Bilirubin (0.2-1.3) mg/dL AST (14-36) U/L ALT (0-35) U/L Alkaline Phosphatase (38-126) U/L Ammonia (9-30) umol/L Troponin I (0.000-0.034) ng/mL Serum Total Protein (6.3-8.2) g/dL Albumin (3.5-5.0) g/dL Prealbumin (17.6-36.0) mg/dL Influenza Type A Ag (NEGATIVE) Influenza Type B Ag (NEGATIVE) RSV (PCR) (Negative) SARS-CoV-2 (PCR) (NEGATIVE) Microbiology 11/29/20 14:00 Urine Culture - Preliminary Urine, Indwelling Catheter NO GROWTH TO DATE Accuchecks Date 11/30/20 Date 11/30/20 Date 11/29/20 Time 11:19 - Radiology Impressions Radiology Exams & Impressions: Radiology Procedures Category Date Time Status ABDOMINAL PARACENTESIS [US] Routine Exams 11/30/20 07:10 Taken CHEST 1 VIEW (PORTABLE) Stat Exams 11/29/20 12:46 Completed - Other Procedures and Tests Respiratory Therapy 11/29/20 15:50 Oxygen Nasal Cannula 2 lpm 11/29/20 16:05 Respiratory Therapy Assessment DAILY Hospital Summary - Vitals & Intake/Output Vital Signs: Vital Signs Temperature 98.4 F 11/30/20 11:35 Pulse Rate 105 H 11/30/20 11:35 Respiratory Rate 16 11/30/20 11:35 Blood Pressure 162/70 11/30/20 11:35 O2 Sat by Pulse Oximetry 99 11/30/20 11:35 Intake & Output: Intake & Output 11/28/20 11/29/20 11/30/20 12/01/20 11:59 11:59 11:59 11:59 Intake Total 400 Output Total 45098 Balance -9700 Weight 90.1 kg - Lab Result Diagrams: 11/30/20 04:20 11/30/20 04:20 Lab Results-Last 24 Hrs: Lab Results-Last 24 Hours 11/29/20 11/29/20 11/29/20 Range/Units 12:45 13:18 13:19 WBC 12.1 H (4.0-10.5) K/mm3 RBC 3.39 L (4.1-5.4) M/mm3 Hgb 9.6 L (12.0-16.0) gm/dl Hct 30.0 L (35-47) % MCV 88.5 (78-100) fl MCH 28.3 (26-32) pg MCHC 32.0 (32-36) g/dl RDW 16.6 H (11.5-14.0) % Plt Count 218 (150-450) K/mm3 MPV 9.4 (7.5-11.0) fl Gran % 83.0 H (36.0-66.0) % Eos # (Auto) 0.25 (0-0.5) Absolute Lymphs (auto) 0.99 L (1.0-4.6) Absolute Monos (auto) 0.77 (0.0-1.3) Lymphocytes % 8.2 L (24.0-44.0) % Monocytes % 6.3 (0.0-12.0) % Eosinophils % 2.1 (0.00-5.0) % Basophils % 0.4 (0.0-0.4) % Absolute Granulocytes 10.07 H (1.4-6.9) Basophils # 0.05 (0-0.4) PT (9.95-12.35) SECONDS INR (0.8-3.0) Sodium (137-145) mmol/L Potassium (3.5-5.1) mmol/L Chloride (98-107) mmol/L Carbon Dioxide (22-30) mmol/L Anion Gap (5-15) MEQ/L BUN (7-17) mg/dL Creatinine (0.52-1.04) mg/dL Estimated GFR ML/MIN Glucose (74-106) mg/dL POC Glucometer (74 to 106) mg/dL Hemoglobin A1c 6.48 H (4.5-6.0) % Lactic Acid (0.4-2.0) Calcium (8.4-10.2) mg/dL Phosphorus (2.5-4.5) mg/dL Magnesium (1.6-2.3) mg/dL Total Bilirubin (0.2-1.3) mg/dL AST (14-36) U/L ALT (0-35) U/L Alkaline Phosphatase (38-126) U/L Ammonia < 9 L (9-30) umol/L Troponin I (0.000-0.034) ng/mL Serum Total Protein (6.3-8.2) g/dL Albumin (3.5-5.0) g/dL Prealbumin (17.6-36.0) mg/dL Influenza Type A Ag (NEGATIVE) Influenza Type B Ag (NEGATIVE) RSV (PCR) (Negative) SARS-CoV-2 (PCR) (NEGATIVE) 11/29/20 11/29/20 11/29/20 Range/Units 13:19 13:19 13:39 WBC (4.0-10.5) K/mm3 RBC (4.1-5.4) M/mm3 Hgb (12.0-16.0) gm/dl Hct (35-47) % MCV (78-100) fl MCH (26-32) pg MCHC (32-36) g/dl RDW (11.5-14.0) % Plt Count (150-450) K/mm3 MPV (7.5-11.0) fl Gran % (36.0-66.0) % Eos # (Auto) (0-0.5) Absolute Lymphs (auto) (1.0-4.6) Absolute Monos (auto) (0.0-1.3) Lymphocytes % (24.0-44.0) % Monocytes % (0.0-12.0) % Eosinophils % (0.00-5.0) % Basophils % (0.0-0.4) % Absolute Granulocytes (1.4-6.9) Basophils # (0-0.4) PT (9.95-12.35) SECONDS INR (0.8-3.0) Sodium 121 L (137-145) mmol/L Potassium 4.7 (3.5-5.1) mmol/L Chloride 85 L (98-107) mmol/L Carbon Dioxide 28 (22-30) mmol/L Anion Gap 12.3 (5-15) MEQ/L BUN 27 H (7-17) mg/dL Creatinine 1.42 H (0.52-1.04) mg/dL Estimated GFR 41.1 ML/MIN Glucose 414 H (74-106) mg/dL POC Glucometer (74 to 106) mg/dL Hemoglobin A1c (4.5-6.0) % Lactic Acid 1.4 (0.4-2.0) Calcium 8.0 L (8.4-10.2) mg/dL Phosphorus (2.5-4.5) mg/dL Magnesium 1.7 (1.6-2.3) mg/dL Total Bilirubin 0.40 (0.2-1.3) mg/dL AST 24 (14-36) U/L ALT 22 (0-35) U/L Alkaline Phosphatase 306 H (38-126) U/L Ammonia (9-30) umol/L Troponin I < 0.012 (0.000-0.034) ng/mL Serum Total Protein 5.9 L (6.3-8.2) g/dL Albumin 2.7 L (3.5-5.0) g/dL Prealbumin 7.91 L (17.6-36.0) mg/dL Influenza Type A Ag (NEGATIVE) Influenza Type B Ag (NEGATIVE) RSV (PCR) (Negative) SARS-CoV-2 (PCR) (NEGATIVE) 11/29/20 11/29/20 11/29/20 Range/Units 13:39 14:11 16:29 WBC (4.0-10.5) K/mm3 RBC (4.1-5.4) M/mm3 Hgb (12.0-16.0) gm/dl Hct (35-47) % MCV (78-100) fl MCH (26-32) pg MCHC (32-36) g/dl RDW (11.5-14.0) % Plt Count (150-450) K/mm3 MPV (7.5-11.0) fl Gran % (36.0-66.0) % Eos # (Auto) (0-0.5) Absolute Lymphs (auto) (1.0-4.6) Absolute Monos (auto) (0.0-1.3) Lymphocytes % (24.0-44.0) % Monocytes % (0.0-12.0) % Eosinophils % (0.00-5.0) % Basophils % (0.0-0.4) % Absolute Granulocytes (1.4-6.9) Basophils # (0-0.4) PT 18.8 H (9.95-12.35) SECONDS INR 1.66 (0.8-3.0) Sodium (137-145) mmol/L Potassium (3.5-5.1) mmol/L Chloride (98-107) mmol/L Carbon Dioxide (22-30) mmol/L Anion Gap (5-15) MEQ/L BUN (7-17) mg/dL Creatinine (0.52-1.04) mg/dL Estimated GFR ML/MIN Glucose (74-106) mg/dL POC Glucometer 342 H (74 to 106) mg/dL Hemoglobin A1c (4.5-6.0) % Lactic Acid (0.4-2.0) Calcium (8.4-10.2) mg/dL Phosphorus (2.5-4.5) mg/dL Magnesium (1.6-2.3) mg/dL Total Bilirubin (0.2-1.3) mg/dL AST (14-36) U/L ALT (0-35) U/L Alkaline Phosphatase (38-126) U/L Ammonia (9-30) umol/L Troponin I (0.000-0.034) ng/mL Serum Total Protein (6.3-8.2) g/dL Albumin (3.5-5.0) g/dL Prealbumin (17.6-36.0) mg/dL Influenza Type A Ag NEGATIVE (NEGATIVE) Influenza Type B Ag NEGATIVE (NEGATIVE) RSV (PCR) NEGATIVE (Negative) SARS-CoV-2 (PCR) NEGATIVE (NEGATIVE) 11/29/20 11/30/20 11/30/20 Range/Units 20:28 04:20 04:20 WBC 9.6 (4.0-10.5) K/mm3 RBC 3.27 L (4.1-5.4) M/mm3 Hgb 9.3 L (12.0-16.0) gm/dl Hct 29.1 L (35-47) % MCV 89.0 (78-100) fl MCH 28.4 (26-32) pg MCHC 32.0 (32-36) g/dl RDW 16.6 H (11.5-14.0) % Plt Count 211 (150-450) K/mm3 MPV 9.2 (7.5-11.0) fl Gran % 74.4 H (36.0-66.0) % Eos # (Auto) 0.20 (0-0.5) Absolute Lymphs (auto) 1.56 (1.0-4.6) Absolute Monos (auto) 0.67 (0.0-1.3) Lymphocytes % 16.2 L (24.0-44.0) % Monocytes % 7.0 (0.0-12.0) % Eosinophils % 2.1 (0.00-5.0) % Basophils % 0.3 (0.0-0.4) % Absolute Granulocytes 7.16 H (1.4-6.9) Basophils # 0.03 (0-0.4) PT (9.95-12.35) SECONDS INR (0.8-3.0) Sodium 123 L (137-145) mmol/L Potassium 4.3 (3.5-5.1) mmol/L Chloride 86 L (98-107) mmol/L Carbon Dioxide 23 (22-30) mmol/L Anion Gap 17.4 H (5-15) MEQ/L BUN 33 H (7-17) mg/dL Creatinine 1.26 H (0.52-1.04) mg/dL Estimated GFR 47.2 ML/MIN Glucose 266 H (74-106) mg/dL POC Glucometer 428 H (74 to 106) mg/dL Hemoglobin A1c (4.5-6.0) % Lactic Acid (0.4-2.0) Calcium 7.9 L (8.4-10.2) mg/dL Phosphorus 4.2 (2.5-4.5) mg/dL Magnesium (1.6-2.3) mg/dL Total Bilirubin (0.2-1.3) mg/dL AST (14-36) U/L ALT (0-35) U/L Alkaline Phosphatase (38-126) U/L Ammonia (9-30) umol/L Troponin I (0.000-0.034) ng/mL Serum Total Protein (6.3-8.2) g/dL Albumin 3.0 L (3.5-5.0) g/dL Prealbumin (17.6-36.0) mg/dL Influenza Type A Ag (NEGATIVE) Influenza Type B Ag (NEGATIVE) RSV (PCR) (Negative) SARS-CoV-2 (PCR) (NEGATIVE) 11/30/20 11/30/20 Range/Units 07:15 11:10 WBC (4.0-10.5) K/mm3 RBC (4.1-5.4) M/mm3 Hgb (12.0-16.0) gm/dl Hct (35-47) % MCV (78-100) fl MCH (26-32) pg MCHC (32-36) g/dl RDW (11.5-14.0) % Plt Count (150-450) K/mm3 MPV (7.5-11.0) fl Gran % (36.0-66.0) % Eos # (Auto) (0-0.5) Absolute Lymphs (auto) (1.0-4.6) Absolute Monos (auto) (0.0-1.3) Lymphocytes % (24.0-44.0) % Monocytes % (0.0-12.0) % Eosinophils % (0.00-5.0) % Basophils % (0.0-0.4) % Absolute Granulocytes (1.4-6.9) Basophils # (0-0.4) PT (9.95-12.35) SECONDS INR (0.8-3.0) Sodium (137-145) mmol/L Potassium (3.5-5.1) mmol/L Chloride (98-107) mmol/L Carbon Dioxide (22-30) mmol/L Anion Gap (5-15) MEQ/L BUN (7-17) mg/dL Creatinine (0.52-1.04) mg/dL Estimated GFR ML/MIN Glucose (74-106) mg/dL POC Glucometer 186 H 155 H (74 to 106) mg/dL Hemoglobin A1c (4.5-6.0) % Lactic Acid (0.4-2.0) Calcium (8.4-10.2) mg/dL Phosphorus (2.5-4.5) mg/dL Magnesium (1.6-2.3) mg/dL Total Bilirubin (0.2-1.3) mg/dL AST (14-36) U/L ALT (0-35) U/L Alkaline Phosphatase (38-126) U/L Ammonia (9-30) umol/L Troponin I (0.000-0.034) ng/mL Serum Total Protein (6.3-8.2) g/dL Albumin (3.5-5.0) g/dL Prealbumin (17.6-36.0) mg/dL Influenza Type A Ag (NEGATIVE) Influenza Type B Ag (NEGATIVE) RSV (PCR) (Negative) SARS-CoV-2 (PCR) (NEGATIVE) Micro Results-Entire Visit: Microbiology 11/29/20 14:00 Urine Culture - Preliminary Urine, Indwelling Catheter NO GROWTH TO DATE Accuchecks Date 11/30/20 Date 11/30/20 Date 11/29/20 Time 11:19 - Radiology Exams Ordered Rad Exams-Entire Visit: Radiology Procedures Category Date Time Status ABDOMINAL PARACENTESIS [US] Routine Exams 11/30/20 07:10 Taken CHEST 1 VIEW (PORTABLE) Stat Exams 11/29/20 12:46 Completed - Procedures and Test Procedures and Tests throughout Hospitalization: Therapy Orders & Screens 11/29/20 15:50 Oxygen Nasal Cannula 2 lpm Comment: 11/29/20 16:05 Respiratory Therapy Assessment DAILY Comment: Diagnosis: severe hypontremia, ac renal failure, CHF 11/29/20 18:20 RT Screen per Nursing Assess ONCE Comment: Protocol Order Physician Instructions: Greater than 3 points order RT Admission Screen Reason For Exam: Triggered on Admission Diagnosis: severe hypontremia, ac renal failure, CHF Diagnosis: severe hypontremia, ac renal failure, CHF Pneumonia: No Home O2: Yes Asthma: No CHF: Yes Home CPAP/BIPAP: No Home Nebs/MDI: Yes Total Points: 13 Smoking Cessation Education ONCE Comment: Diagnosis: severe hypontremia, ac renal failure, CHF Smoking Status: Current every day smoker How long have you smoked: "35 years" Have you smoked in the past 12 months: Yes Approximately how many cigarettes per day: 3 Do you dip or chew tobacco: No If,Former Smoker,when did you quit: 09/04/19 - Discharge Disposition: HOME HEALTH SERVICE Condition: Fair Prescriptions: Continue Duloxetine HCl 30 mg [Cymbalta 30 MG Capsule] 30 mg PO BID Omeprazole 20 MG [Prilosec 20 mg] 20 mg PO DAILY Albuterol Sulfate [Proair Hfa] 2 puff IH Q4HPRN PRN PRN Reason: RESP Pravastatin Sodium [Pravachol] 10 mg PO HS Gabapentin [Gralise] 400 mg PO TID Docusate Sodium 100 mg [Colace 100 MG] 100 mg PO HSPRN PRN PRN Reason: Constipation Ergocalciferol (Vitamin D2) [Vitamin D] 50,000 units PO CHEW Hydroxyzine HCl 10 mg PO BID Ferrous Sulfate 325 mg PO BID Levothyroxine Sodium 25 Mcg [Synthroid 25 Mcg] 25 mcg PO DAILY Ondansetron ODT 4 MG [Zofran Odt 4 mg] 4 mg PO Q6H PRN PRN #10 tab.rapdis PRN Reason: Vomiting Insulin Glargine [Lantus Insulin] 20 units SQ BID Tiotropium [place] [Spiriva Respimat] 1 puff IH DAILY Insulin Lispro [Humalog Kwikpen U-100] 10 unit SQ TIDWMEALS Promethazine HCl 25 mg [Phenergan 25 mg] 25 mg PO Q6HPRN PRN PRN Reason: Nausea/Vomiting Hydrocodone/Acetaminophen [Hydrocodone-Acetamin 10-325 mg^^^] 1 ea PO BID Apixaban [Eliquis] 5 mg PO BID Nicotine 14 mg [Nicoderm Cq 14 mg] 14 mg TD Q24H Albuterol 2.5 mg/3 ml Neb [Proventil 2.5 mg/3 ml Neb] 1 ampul IH QID PRN Midodrine HCl 10 mg PO QID Prednisone 10 mg [Deltasone 10 mg] 10 mg PO DAILY Cefdinir [Omnicef 300 mg] 300 mg PO BID Instructions: Chronic Kidney Disease Follow up with: SARAH AMIN DO [Primary Care Provider] -
[2020-12-06] MEDS ORDERED: VITAMIN D2 PO SCH (10:00)
== END 2020-11-30 13:32 | disposition home health service (06) ==
LOC: ED 12:27 → MED SURG 15:42
PROVIDERS: ADMIT Family Medicine; ATTEND Family Medicine
DX: E87.1 Hypo-osmolality and hyponatremia (principal); N17.9 Acute kidney failure, unspecified; E11.22 Type 2 diabetes mellitus with diabetic chronic kidney disease; I13.2 Hypertensive heart and chronic kidney disease with heart failure and with stage 5 chronic kidney disease, or end stage renal disease; N18.6 End stage renal disease; I50.9 Heart failure, unspecified; R18.8 Other ascites; Z99.2 Dependence on renal dialysis; Z79.899 Other long term (current) drug therapy; J44.9 Chronic obstructive pulmonary disease, unspecified; Z20.828 Contact with and (suspected) exposure to other viral communicable diseases; Z79.01 Long term (current) use of anticoagulants; Z99.81 Dependence on supplemental oxygen; Z89.512 Acquired absence of left leg below knee; Z86.711 Personal history of pulmonary embolism; E03.9 Hypothyroidism, unspecified
CPT/HCPCS: 0241U; 36000; 36415; 49083; 51702; 71045; 80053; 80069; 82140; 82947; 83036; 83605; 83735; 84134; 84484; 85025; 85610; 87086; 93005; 93268; 94640; 94760; 96360; 96374; 99285; 99291; G0378; J1817; J1940; J7609; A9270-GY

== ENCOUNTER 2020-12-18 18:19 | Emergency (ER) | payer MEDICARE ==
[2020-12-18] MEDS ORDERED: Sodium Chloride 0.9% 1000 ML 1,000 ML ONE (18:41)
[2020-12-18] MEDS ORDERED: Hydromorphone 1 mg/ml Injection ONE ×2 (18:41→19:35)
[2020-12-18] MEDS ORDERED: Zofran 4 MG/2 ML VIAL ONE (18:41)
[2020-12-18] MEDS: Sodium Chloride 0.9% 1000 ML 1,000 ML IV SCH (18:45)
[2020-12-18] MEDS: Zofran 4 MG/2 ML VIAL IV ONE (18:45)
[2020-12-18] MEDS: Hydromorphone 1 mg/ml Injection IV ONE ×2 (18:45→19:37)
--- NOTE | 2020-12-18 19:03 | ERPHSYRPT ---
- History of Present Illness Time Seen by Provider: 12/18/20 18:30 Historian: patient Exam Limitations: no limitations Patient Subjective Stated Complaint: vomiting, abd pain x 1 week Triage Nursing Assessment: pt to ED c/o vomiting and abd pain 10/10 x 1 week. pt reportes she is not able to keep down medications or po fluids today. Physician History: Is a 55-year-old female who has end-stage renal disease and is on dialysis Monday and Monday except that she did miss today. She says she has had severe abdominal pain repeated nausea and vomiting for a week. She did not make it to dialysis today because she was too sick. She complains of nausea and vomiting she also had paracentesis on Monday. She denies any fever chills or sweats. She describes the epigastric abdominal pain as severe 10 of 10. She has severe COPD she has a history of pulmonary embolus she is on Eliquis. She has hypothyroidism. And she has fatty liver with ascites. Timing/Duration: week(s) Activities at Onset: none Quality: cramping, sharpness, throbbing Abdominal Pain Onset Location: epigastric Pain Radiation: periumbilical Severity of Pain-Max: severe Severity of Pain-Current: moderate Modifying Factors: Improves With: vomiting Associated Symptoms: loss of appetite, nausea, vomiting, No fever/chills Previous symptoms: same symptoms as today Allergies/Adverse Reactions: adhesive tape Allergy (Mild, Verified 12/18/20 18:26) redness clindamycin Adverse Reaction (Verified 12/18/20 18:26) Skin Irritation sunburn like redness and itching bee stings Allergy (Mild, Uncoded 12/18/20 18:26) Anaphylactic Reaction trouble breathing and swelling. Home Medications: Duloxetine HCl 30 mg [Cymbalta 30 MG Capsule] 30 mg PO BID 11/17/12 [History] Albuterol Sulfate [Proair Hfa] 2 puff IH Q4HPRN PRN 04/21/15 [History] Omeprazole 20 MG [Prilosec 20 mg] 20 mg PO DAILY 04/21/15 [History] Pravastatin Sodium [Pravachol] 10 mg PO HS 02/07/16 [History] Gabapentin [Gralise] 400 mg PO TID 11/11/16 [History] Docusate Sodium 100 mg [Colace 100 MG] 100 mg PO HSPRN PRN 01/18/19 [History] Ergocalciferol (Vitamin D2) [Vitamin D] 50,000 units PO CHEW 01/18/19 [History] Ferrous Sulfate 325 mg PO BID 01/18/19 [History] Hydroxyzine HCl 10 mg PO BID 01/18/19 [History] Levothyroxine Sodium 25 Mcg [Synthroid 25 Mcg] 25 mcg PO DAILY 01/18/19 [History] Insulin Glargine [Lantus Insulin] 20 units SQ BID 09/27/19 [History] Tiotropium [place] [Spiriva Respimat] 1 puff IH DAILY 10/14/19 [History] Insulin Lispro [Humalog Kwikpen U-100] 10 unit SQ TIDWMEALS 03/27/20 [History] Promethazine HCl 25 mg [Phenergan 25 mg] 25 mg PO Q6HPRN PRN 03/27/20 [History] Hydrocodone/Acetaminophen [Hydrocodone-Acetamin 10-325 mg^^^] 1 ea PO BID 06/01/20 [History] Apixaban [Eliquis] 5 mg PO BID 06/21/20 [History] Nicotine 14 mg [Nicoderm Cq 14 mg] 14 mg TD Q24H 06/21/20 [History] Albuterol 2.5 mg/3 ml Neb [Proventil 2.5 mg/3 ml Neb] 1 ampul IH QID PRN 07/16/20 [History] Midodrine HCl 10 mg PO QID 09/30/20 [History] Cefdinir [Omnicef 300 mg] 300 mg PO BID 11/29/20 [History] Prednisone 10 mg [Deltasone 10 mg] 10 mg PO DAILY 11/29/20 [History] Hx Tetanus, Diphtheria Vaccination/Date Given: Yes Hx Influenza Vaccination/Date Given: Yes Hx Pneumococcal Vaccination/Date Given: Yes Immunizations Up to Date: Yes Travel Risk - International Travel Have you traveled outside of the country in past 3 weeks: No - Coronavirus Screening Are you exhibiting any of the following symptoms?: Yes Symptoms: Vomiting/Diarrhea Close contact with a COVID-19 positive Pt in past 14-21 Days: No - Vaccine Status Have you recieved a Covid-19 vaccination: No 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 - Vaccination Dates Date of 2cond Vaccination (if applicable): 12/04/20 - Review of Systems Constitutional: Malaise, Weakness Eyes: No Symptoms Ears, Nose, & Throat: No Symptoms Respiratory: Cough, Dyspnea, Wheezing Cardiac: No Chest Pain, No Edema, No Syncope Abdominal/Gastrointestinal: Abdominal Pain, Nausea, Vomiting Musculoskeletal: Joint Pain Skin: No Rash Neurological: No Dizziness, No Focal Weakness, No Sensory Changes Psychological: No Symptoms Endocrine: No Symptoms Hematologic/Lymphatic: No Symptoms Immunological/Allergic: No Symptoms - Past Medical History Pertinent Past Medical History: Yes Neurological History: Peripheral Neuropathy ENT History: No Pertinent History Cardiac History: Deep Vein Thrombosis, Hypertension Respiratory History: Asthma, CHF, COPD, Pneumonia, Pulmonary Embolism Endocrine Medical History: Diabetes Type II, Hypoglycemia, Hypothyroidism Musculoskeletal History: Fractures GI Medical History: GERD, Other History: Renal Disease Psycho-Social History: Anxiety, Depression Female Reproductive Disorders: Fibroids Other Medical History: left ankle fx with mult surgeries, in February 2019 bka,. ascites. fatty liver - Past Surgical History Past Surgical History: Yes Neuro Surgical History: No Pertinent History Cardiac: No Pertinent History Respiratory: No Pertinent History Gastrointestinal: Cholecystectomy, Exploratory Laparoscopy Genitourinary: No Pertinent History Musculoskeletal: Amputation Female Surgical History: Section, Hysterectomy Other Surgical History: foot surgery, screw placed in left big toe, removal, and antibiotic bead placement. mult lt foot surgeries. LT BKA February 2019 - Social History Smoking Status: Current every day smoker How long have you smoked: "35 years" Exposure to second hand smoke: Yes Drug Use: none Patient Lives Alone: Yes Significant Family History: no pertinent family hx - Nursing Vital Signs Nursing Vital Signs: Initial Vital Signs Temperature 97.7 F 12/18/20 18:27 Pulse Rate 110 H 12/18/20 18:27 Respiratory Rate 24 12/18/20 18:27 Blood Pressure 154/73 12/18/20 18:27 O2 Sat by Pulse Oximetry 98 12/18/20 18:27 Pain Scale Pain Intensity 5 - Physical Exam General Appearance: mild distress Eye Exam: PERRL/EOMI, eyes nml inspection Ears, Nose, Throat Exam: normal ENT inspection, pharynx normal, moist mucous membranes Neck Exam: normal inspection, non-tender, supple, full range of motion Respiratory Exam: respiratory distress, crackles/rales, rhonchi, wheezing Cardiovascular Exam: regular rate/rhythm, normal heart sounds Gastrointestinal/Abdomen Exam: tenderness, distention, guarding Pelvic Exam: not done Rectal Exam: deferred Back Exam: normal inspection Extremity Exam: other (Left lower extremity BKA) Neurologic Exam: alert, 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, cooperative, normal mood/affect, nml cerebellar function, sensation nml, No motor deficits Skin Exam: normal color, warm, dry Lymphatic Exam: adenopathy SpO2 Interpretation: normal SpO2: 98 O2 Delivery: Room Air - Course Nursing assessment & vital signs reviewed: Yes EKG Interpreted by Me: RATE (110), Sinus Tach, NORMAL AXIS, NORMAL INTERVALS, NORMAL QRS, NORMAL ST-T - CT Exams Abdomen/Pelvis CT Interpretation: Other (The scan of the abdomen pelvis shows recurrent ascites thickening of the bladder wall consistent with cystitis.) Ordered Tests: Active Orders 24 hr Category Date Time Status EKG-ER Only STAT Care 12/18/20 18:32 Active IV Insertion STAT Care 12/18/20 18:32 Active ABDOMEN AND PELVIS W/0 CONTRAS [CT] Stat Exams 12/18/20 18:33 Taken CHEST 1 VIEW (PORTABLE) Stat Exams 12/18/20 18:32 Taken AMYLASE Stat Lab 12/18/20 18:57 Completed BLOOD CULTURE Stat Lab 12/18/20 18:59 Received BNP [NT PRO BNP] Stat Lab 12/18/20 18:57 Completed CBC W DIFF Stat Lab 12/18/20 18:57 Completed CMP Stat Lab 12/18/20 18:57 Completed CULTURE,URINE Stat Lab 12/18/20 18:45 Received LIPASE Stat Lab 12/18/20 18:57 Completed Lactic Acid Stat Lab 12/18/20 18:55 Completed MAGNESIUM Stat Lab 12/18/20 18:57 Completed PROTIME WITH INR Stat Lab 12/18/20 18:57 Completed TROPONIN Q3H Lab 12/18/20 18:59 Completed TROPONIN Q3H Lab 12/18/20 21:45 Ordered TROPONIN Q3H Lab 12/19/20 00:45 Ordered TROPONIN Q3H Lab 12/19/20 03:45 Ordered TROPONIN Q3H Lab 12/19/20 06:45 Ordered UA W/RFX UR CULTURE Stat Lab 12/18/20 18:45 Completed Medication Summary Generic Name Dose Route Start Last Admin Trade Name Allan PRN Reason Stop Dose Admin Sodium Chloride 1,000 mls @ 25 mls/hr 12/18/20 18:45 12/18/20 18:45 Sodium Chloride 0.9% 1000 Ml IV 01/17/21 18:44 25 mls/hr .Q24H TISHA Administration Discontinued Medications Generic Name Dose Route Start Last Admin Trade Name Allan PRN Reason Stop Dose Admin Hydromorphone HCl 0.5 mg 12/18/20 18:32 12/18/20 18:45 Hydromorphone 1 Mg/Ml Injection IV 12/18/20 18:33 0.5 mg STAT ONE Administration Hydromorphone HCl Confirm 12/18/20 18:41 Hydromorphone 1 Mg/Ml Injection Administered 12/18/20 18:42 Dose 1 mg .ROUTE .STK-MED ONE Hydromorphone HCl 1 mg 12/18/20 19:35 12/18/20 19:37 Hydromorphone 1 Mg/Ml Injection IV 12/18/20 19:36 1 mg STAT ONE Administration Hydromorphone HCl Confirm 12/18/20 19:35 Hydromorphone 1 Mg/Ml Injection Administered 12/18/20 19:36 Dose 1 mg .ROUTE .STK-MED ONE Ondansetron HCl 4 mg 12/18/20 18:32 12/18/20 18:45 Zofran 4 Mg/2 Ml Vial IV 12/18/20 18:33 4 mg STAT ONE Administration Ondansetron HCl Confirm 12/18/20 18:41 Zofran 4 Mg/2 Ml Vial Administered 12/18/20 18:42 Dose 4 mg .ROUTE .STK-MED ONE Lab/Rad Data: Laboratory Result Diagrams 12/18/20 18:57 12/18/20 18:57 Laboratory Results 12/18/20 12/18/20 12/18/20 Range/Units 18:59 18:57 18:57 WBC (4.0-10.5) K/mm3 RBC (4.1-5.4) M/mm3 Hgb (12.0-16.0) gm/dl Hct (35-47) % MCV (78-100) fl MCH (26-32) pg MCHC (32-36) g/dl RDW (11.5-14.0) % Plt Count (150-450) K/mm3 MPV (7.5-11.0) fl Gran % (36.0-66.0) % Eos # (Auto) (0-0.5) Absolute Lymphs (auto) (1.0-4.6) Absolute Monos (auto) (0.0-1.3) Lymphocytes % (24.0-44.0) % Monocytes % (0.0-12.0) % Eosinophils % (0.00-5.0) % Basophils % (0.0-0.4) % Absolute Granulocytes (1.4-6.9) Basophils # (0-0.4) PT (9.95-12.35) SECONDS INR (0.8-3.0) Sodium (137-145) mmol/L Potassium (3.5-5.1) mmol/L Chloride (98-107) mmol/L Carbon Dioxide (22-30) mmol/L Anion Gap (5-15) MEQ/L BUN (7-17) mg/dL Creatinine (0.52-1.04) mg/dL Estimated GFR ML/MIN Glucose (74-106) mg/dL Lactic Acid (0.4-2.0) Calcium (8.4-10.2) mg/dL Magnesium (1.6-2.3) mg/dL Total Bilirubin (0.2-1.3) mg/dL AST (14-36) U/L ALT (0-35) U/L Alkaline Phosphatase (38-126) U/L Ammonia 11 (9-30) umol/L Troponin I < 0.012 (0.000-0.034) ng/mL NT-Pro-B Natriuret Pep 374 (0-900) pg/mL Serum Total Protein (6.3-8.2) g/dL Albumin (3.5-5.0) g/dL Amylase (30-110) U/L Lipase (23-300) U/L Urine Color (YELLOW) Urine Appearance (CLEAR) Urine pH (5-6) Ur Specific [place] (1.005-1.025) Urine Protein (Negative) Urine Ketones (NEGATIVE) Urine Blood (0-5) Ubaldo/ul Urine Nitrite (NEGATIVE) Urine Bilirubin (NEGATIVE) Urine Urobilinogen (0-1) mg/dL Ur Leukocyte Esterase (NEGATIVE) Urine WBC (Auto) (0-5) /HPF Urine RBC (Auto) (0-2) /HPF U Epithel Cells (Auto) (FEW) /HPF Urine Bacteria (Auto) (NEGATIVE) /HPF Urine Mucus (Auto) (NEGATIVE) /HPF Urine Yeast (Budding) (NEGATIVE) /HPF Urine Culture Reflexed (NO) Urine Glucose (NEGATIVE) mg/dL 12/18/20 12/18/20 12/18/20 Range/Units 18:57 18:57 18:57 WBC 11.6 H (4.0-10.5) K/mm3 RBC 4.02 L (4.1-5.4) M/mm3 Hgb 11.4 L (12.0-16.0) gm/dl Hct 34.7 L (35-47) % MCV 86.3 (78-100) fl MCH 28.4 (26-32) pg MCHC 32.9 (32-36) g/dl RDW 15.0 H (11.5-14.0) % Plt Count 171 (150-450) K/mm3 MPV 9.9 (7.5-11.0) fl Gran % 76.0 H (36.0-66.0) % Eos # (Auto) 0.28 (0-0.5) Absolute Lymphs (auto) 1.80 (1.0-4.6) Absolute Monos (auto) 0.67 (0.0-1.3) Lymphocytes % 15.5 L (24.0-44.0) % Monocytes % 5.8 (0.0-12.0) % Eosinophils % 2.4 (0.00-5.0) % Basophils % 0.3 (0.0-0.4) % Absolute Granulocytes 8.79 H (1.4-6.9) Basophils # 0.04 (0-0.4) PT 14.6 H (9.95-12.35) SECONDS INR 1.29 (0.8-3.0) Sodium 118 L* (137-145) mmol/L Potassium 4.2 (3.5-5.1) mmol/L Chloride 85 L (98-107) mmol/L Carbon Dioxide 26 (22-30) mmol/L Anion Gap 11.0 (5-15) MEQ/L BUN 23 H (7-17) mg/dL Creatinine 1.77 H (0.52-1.04) mg/dL Estimated GFR 31.9 ML/MIN Glucose 402 H (74-106) mg/dL Lactic Acid (0.4-2.0) Calcium 8.2 L (8.4-10.2) mg/dL Magnesium 1.5 L (1.6-2.3) mg/dL Total Bilirubin 0.50 (0.2-1.3) mg/dL AST 29 (14-36) U/L ALT 18 (0-35) U/L Alkaline Phosphatase 278 H (38-126) U/L Ammonia (9-30) umol/L Troponin I (0.000-0.034) ng/mL NT-Pro-B Natriuret Pep (0-900) pg/mL Serum Total Protein 6.6 (6.3-8.2) g/dL Albumin 3.0 L (3.5-5.0) g/dL Amylase 43 (30-110) U/L Lipase 241 (23-300) U/L Urine Color (YELLOW) Urine Appearance (CLEAR) Urine pH (5-6) Ur Specific [place] (1.005-1.025) Urine Protein (Negative) Urine Ketones (NEGATIVE) Urine Blood (0-5) Ubaldo/ul Urine Nitrite (NEGATIVE) Urine Bilirubin (NEGATIVE) Urine Urobilinogen (0-1) mg/dL Ur Leukocyte Esterase (NEGATIVE) Urine WBC (Auto) (0-5) /HPF Urine RBC (Auto) (0-2) /HPF U Epithel Cells (Auto) (FEW) /HPF Urine Bacteria (Auto) (NEGATIVE) /HPF Urine Mucus (Auto) (NEGATIVE) /HPF Urine Yeast (Budding) (NEGATIVE) /HPF Urine Culture Reflexed (NO) Urine Glucose (NEGATIVE) mg/dL 12/18/20 12/18/20 Range/Units 18:55 18:45 WBC (4.0-10.5) K/mm3 RBC (4.1-5.4) M/mm3 Hgb (12.0-16.0) gm/dl Hct (35-47) % MCV (78-100) fl MCH (26-32) pg MCHC (32-36) g/dl RDW (11.5-14.0) % Plt Count (150-450) K/mm3 MPV (7.5-11.0) fl Gran % (36.0-66.0) % Eos # (Auto) (0-0.5) Absolute Lymphs (auto) (1.0-4.6) Absolute Monos (auto) (0.0-1.3) Lymphocytes % (24.0-44.0) % Monocytes % (0.0-12.0) % Eosinophils % (0.00-5.0) % Basophils % (0.0-0.4) % Absolute Granulocytes (1.4-6.9) Basophils # (0-0.4) PT (9.95-12.35) SECONDS INR (0.8-3.0) Sodium (137-145) mmol/L Potassium (3.5-5.1) mmol/L Chloride (98-107) mmol/L Carbon Dioxide (22-30) mmol/L Anion Gap (5-15) MEQ/L BUN (7-17) mg/dL Creatinine (0.52-1.04) mg/dL Estimated GFR ML/MIN Glucose (74-106) mg/dL Lactic Acid 1.7 (0.4-2.0) Calcium (8.4-10.2) mg/dL Magnesium (1.6-2.3) mg/dL Total Bilirubin (0.2-1.3) mg/dL AST (14-36) U/L ALT (0-35) U/L Alkaline Phosphatase (38-126) U/L Ammonia (9-30) umol/L Troponin I (0.000-0.034) ng/mL NT-Pro-B Natriuret Pep (0-900) pg/mL Serum Total Protein (6.3-8.2) g/dL Albumin (3.5-5.0) g/dL Amylase (30-110) U/L Lipase (23-300) U/L Urine Color JOJO (YELLOW) Urine Appearance TURBID (CLEAR) Urine pH 5.0 (5-6) Ur Specific [place] 1.010 (1.005-1.025) Urine Protein 100 (Negative) Urine Ketones NEGATIVE (NEGATIVE) Urine Blood MODERATE (0-5) Ubaldo/ul Urine Nitrite NEGATIVE (NEGATIVE) Urine Bilirubin NEGATIVE (NEGATIVE) Urine Urobilinogen NEGATIVE (0-1) mg/dL Ur Leukocyte Esterase LARGE (NEGATIVE) Urine WBC (Auto) >100 (0-5) /HPF Urine RBC (Auto) 51-100 (0-2) /HPF U Epithel Cells (Auto) RARE (FEW) /HPF Urine Bacteria (Auto) MODERATE (NEGATIVE) /HPF Urine Mucus (Auto) SLIGHT (NEGATIVE) /HPF Urine Yeast (Budding) Moderate (NEGATIVE) /HPF Urine Culture Reflexed YES (NO) Urine Glucose >=500 (NEGATIVE) mg/dL - Progress Progress: unchanged Progress Note: 12/18/20 1 12/18/20 20:17 Patient was found to have a urinary tract infection she has pseudohyponatremia hyperglycemia and end-stage renal disease and we discussed the case with Dr. Snyder her stadium manager he accepted her in transfer to [facility]. - Departure Departure Disposition: Transfer Clinical Impression: Hyponatremia, Diabetes type 2, controlled, Nausea and vomiting, Ascites of liver, Chronic kidney disease, stage 3 (moderate), Hypomagnesemia, Hyperglycemia, Abdominal pain Condition: Fair Critical Care Time: No Referrals: SARAH AMIN DO [Primary Care Provider] -
[2020-12-18 19:07] LABS: Absolute Neutrophil Ct (ANC) 8.79 (1.4-6.9); BASOPHIL % 0.3 % (0.0-0.4); Basophil (Absolute #) 0.04 (0-0.4); Eosinophil % 2.4 % (0.00-5.0); Eosinophil (Absolute #) 0.28 (0-0.5); Hematocrit 34.7 % (35-47); Hemoglobin 11.4 gm/dl (12.0-16.0); Lymphocytes % 15.5 % (24.0-44.0); Mean Cell Volume 86.3 fl (78-100); Mean Corpuscular Hemoglobin 28.4 pg (26-32); Mean Corpuscular Hgb Concent. 32.9 g/dl (32-36); Mean Platelet Volume 9.9 fl (7.5-11.0); Monocyte (Absolute #) 0.67 (0.0-1.3); Monocytes % 5.8 % (0.0-12.0); Platelet Count 171 K/mm3 (150-450); Red Blood Count 4.02 M/mm3 (4.1-5.4); White Blood Count 11.6 K/mm3 (4.0-10.5)
[2020-12-18 19:11] LABS: INR 1.29 (0.8-3.0); PROTIME 14.6 SECONDS (9.95-12.35)
[2020-12-18 19:15] LABS: BILIRUBIN,TOTAL 0.5 mg/dL (0.2-1.3); Calcium 8.2 mg/dL (8.4-10.2); Creatinine 1 1.77 mg/dL (0.52-1.04); EST GLOMERULAR FILTRATION RATE 31.9 ML/MIN; MAGNESIUM 1.5 mg/dL (1.6-2.3); Potassium 4.2 mmol/L (3.5-5.1); Total Protein 6.6 g/dL (6.3-8.2)
[2020-12-18 19:15] LABS: Appearance TURBID (CLEAR); Bacteria MODERATE /HPF (NEGATIVE); Bilirubin NEGATIVE (NEGATIVE); Blood MODERATE Ery/ul (0-5); Epithelial Cells RARE /HPF (FEW); Glucose >=500 mg/dL (NEGATIVE); Ketones NEGATIVE (NEGATIVE); Leukocyte Esterase LARGE (NEGATIVE); Mucus SLIGHT /HPF (NEGATIVE); Nitrite NEGATIVE (NEGATIVE); Protein,Urine Dip 100 (Negative); RBC 51-100 /HPF (0-2); Urobilinogen NEGATIVE mg/dL (0-1); WBC >100 /HPF (0-5)
[2020-12-18 19:17] LABS: Budding Yeast Moderate /HPF (NEGATIVE)
[2020-12-18] MEDS ORDERED: BENADRYL 50 MG/ML ONE ×2 (21:51→22:39)
[2020-12-18] MEDS: BENADRYL 50 MG/ML IV ONE ×2 (21:52→22:40)
--- NOTE | 2020-12-18 22:00 | XRAY ---
Indication: Pain. Ascites. Comparison: November 29, 2020. Portable chest unchanged again demonstrating diffuse bilateral interstitial opacities with right base infiltrate/atelectasis. Heart not enlarged with stable right double-lumen dialysis catheter. No new cardiopulmonary abnormalities.
--- NOTE | 2020-12-18 22:06 | XRAY ---
Indication: Abdominal and chest pain. Nausea and vomiting. Headache and diarrhea. Multiple contiguous axial images obtained through the abdomen and pelvis without contrast. Comparison: April 13, 2020. Lung bases demonstrates grossly stable diffuse bilateral interstitial alveolar opacities without effusion. Heart is not enlarged with new partially visualized dialysis catheter. Noncontrasted stomach and bowel loops remain nonobstructed. Grossly stable cirrhotic liver, splenomegaly, splenorenal varices, and large abdomen/pelvic ascites. No free air. New urinary bladder circumferential wall thickening either incomplete distention versus cystitis. Again previous hysterectomy and cholecystectomy. Remaining pancreas, adrenal glands, kidneys, and ureters are unremarkable for noncontrast exam. There remains mild scattered aortoiliac calcifications without AAA. Osseous structures intact again with minimal degenerative changes throughout the spine. Impression: 1. New urinary bladder circumferential wall thickening either incomplete distention versus cystitis. 2. Grossly stable cirrhotic liver, splenomegaly, splenorenal varices, and large ascites. 3. Grossly stable bibasilar interstitial alveolar opacities. Comment: Preliminary interpretation was made by [facility]. No critical discrepancy.
[2020-12-19 00:07] VITALS: BP 118/64; PULSE 104; O2SAT 95
== END 2020-12-19 00:25 | disposition short-term general hospital (02) ==
LOC: ED 18:19
DX: E87.1 Hypo-osmolality and hyponatremia (principal); E11.65 Type 2 diabetes mellitus with hyperglycemia; R11.2 Nausea with vomiting, unspecified; N39.0 Urinary tract infection, site not specified; R18.8 Other ascites; N18.30 Chronic kidney disease, stage 3 unspecified; E83.42 Hypomagnesemia; R10.9 Unspecified abdominal pain
CPT/HCPCS: 36000; 36415; 71045; 74176; 80053; 81001; 82140; 82150; 83605; 83690; 83735; 83880; 84484; 85025; 85610; 87040; 87077; 87086; 87186; 93005; 96360; 96361; 96374; 96375; 96376; 99285; J1170; J1200; J2405

== ENCOUNTER 2020-12-29 19:19 | Emergency (ER) | payer MEDICARE ==
--- NOTE | 2020-12-29 20:15 | ERPHSYRPT ---
- History of Present Illness Time Seen by Provider: 12/29/20 19:45 Source: patient Exam Limitations: no limitations Patient Subjective Stated Complaint: Patient states " I haven't been feeliong well and been vomiting times 2 days and I am just not feeling any better". Triage Nursing Assessment: . Physician History: Patient is a 55-year-old female with a history of diabetes, end-stage renal disease on hemodialysis Monday, patient still produces urine. Patient presents to our ED with complaints of generalized weakness malaise nausea and vomiting for the last 2 days. Patient was observed to be mildly hypoxic in our ED. Her O2 sat was 88%. Patient was put on 2 L. O2 sat increased 98%. Patient has not missed a dialysis session. Patient denies chest pain. Mild shortness of breath. No diaphoresis Timing/Duration: today, day(s) Severity: moderate Modifying Factors: Improves With: nothing Associated Symptoms: denies symptoms Allergies/Adverse Reactions: adhesive tape Allergy (Mild, Verified 12/29/20 19:43) Blisters redness clindamycin Adverse Reaction (Mild, Verified 12/29/20 19:43) Skin Irritation sunburn like redness and itching bee stings Allergy (Mild, Uncoded 12/29/20 19:43) Anaphylactic Reaction trouble breathing and swelling. Home Medications: Duloxetine HCl 30 mg [Cymbalta 30 MG Capsule] 30 mg PO BID 11/17/12 [History] Albuterol Sulfate [Proair Hfa] 2 puff IH Q4HPRN PRN 04/21/15 [History] Omeprazole 20 MG [Prilosec 20 mg] 20 mg PO DAILY 04/21/15 [History] Pravastatin Sodium [Pravachol] 10 mg PO HS 02/07/16 [History] Gabapentin [Gralise] 400 mg PO TID 11/11/16 [History] Docusate Sodium 100 mg [Colace 100 MG] 100 mg PO HSPRN PRN 01/18/19 [History] Ergocalciferol (Vitamin D2) [Vitamin D] 50,000 units PO CHEW 01/18/19 [History] Ferrous Sulfate 325 mg PO BID 01/18/19 [History] Hydroxyzine HCl 10 mg PO BID 01/18/19 [History] Levothyroxine Sodium 25 Mcg [Synthroid 25 Mcg] 25 mcg PO DAILY 01/18/19 [History] Insulin Glargine [Lantus Insulin] 20 units SQ BID 09/27/19 [History] Tiotropium Bejou [Spiriva Respimat] 1 puff IH DAILY 10/14/19 [History] Insulin Lispro [Humalog Kwikpen U-100] 10 unit SQ TIDWMEALS 03/27/20 [History] Promethazine HCl 25 mg [Phenergan 25 mg] 25 mg PO Q6HPRN PRN 03/27/20 [History] Hydrocodone/Acetaminophen [Hydrocodone-Acetamin 10-325 mg^^^] 1 ea PO BID 06/01/20 [History] Nicotine 14 mg [Nicoderm Cq 14 mg] 14 mg TD Q24H 06/21/20 [History] Albuterol 2.5 mg/3 ml Neb [Proventil 2.5 mg/3 ml Neb] 1 ampul IH QID PRN 07/16/20 [History] Midodrine HCl 10 mg PO QID 09/30/20 [History] Cefdinir [Omnicef 300 mg] 300 mg PO BID 11/29/20 [History] Prednisone 10 mg [Deltasone 10 mg] 10 mg PO DAILY 11/29/20 [History] Hx Tetanus, Diphtheria Vaccination/Date Given: Yes Hx Influenza Vaccination/Date Given: Yes Hx Pneumococcal Vaccination/Date Given: Yes Immunizations Up to Date: Yes Travel Risk - International Travel Have you traveled outside of the country in past 3 weeks: No - Coronavirus Screening Are you exhibiting any of the following symptoms?: No Close contact with a COVID-19 positive Pt in past 14-21 Days: No - Vaccine Status Have you recieved a Covid-19 vaccination: Yes Program Support Specialist: Moderna - Vaccination Dates Date of 2cond Vaccination (if applicable): 12/04/20 - Review of Systems Constitutional: No Symptoms, No Fever, No Chills Eyes: No Symptoms Ears, Nose, & Throat: No Symptoms Respiratory: No Symptoms, No Cough, No Dyspnea Cardiac: No Symptoms, No Chest Pain, No Edema, No Syncope Abdominal/Gastrointestinal: No Symptoms, No Abdominal Pain, No Nausea, No Vomiting, No Diarrhea Genitourinary Symptoms: No Symptoms, No Dysuria Musculoskeletal: No Symptoms, No Back Pain, No Neck Pain Skin: No Symptoms, No Rash Neurological: No Symptoms, No Dizziness, No Focal Weakness, No Sensory Changes Psychological: No Symptoms Endocrine: No Symptoms Hematologic/Lymphatic: No Symptoms Immunological/Allergic: No Symptoms All Other Systems: Reviewed and Negative - Past Medical History Pertinent Past Medical History: Yes Neurological History: Peripheral Neuropathy ENT History: No Pertinent History Cardiac History: Deep Vein Thrombosis, Hypertension Respiratory History: Asthma, CHF, COPD, Pneumonia, Pulmonary Embolism Endocrine Medical History: Diabetes Type II, Hypoglycemia, Hypothyroidism Musculoskeletal History: Fractures GI Medical History: GERD, Other History: Renal Disease Psycho-Social History: Anxiety, Depression Female Reproductive Disorders: Fibroids Other Medical History: Left Ankle FX with multiple surgeries, 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 HX ascites. DX fatty liver - Past Surgical History Past Surgical History: Yes Neuro Surgical History: No Pertinent History Cardiac: No Pertinent History Respiratory: No Pertinent History Gastrointestinal: Cholecystectomy, Exploratory Laparoscopy Genitourinary: No Pertinent History Musculoskeletal: Amputation Female Surgical History: Section, Hysterectomy Other Surgical History: foot surgery, screw placed in left big toe, removal, and HX antibiotic bead placement. mult lt foot surgeries. LT BKA February 2019. Dialysis M,W,F - Social History Smoking Status: Current every day smoker How long have you smoked: 36 years Exposure to second hand smoke: Yes Drug Use: none Patient Lives Alone: Yes Significant Family History: no pertinent family hx - Female History Hx Last Menstrual Period: Hysterectomy Hx Now: No - Nursing Vital Signs Nursing Vital Signs: Initial Vital Signs Temperature 98.2 F 12/29/20 19:40 Pulse Rate 109 H 12/29/20 19:40 Respiratory Rate 22 12/29/20 19:40 Blood Pressure 131/73 12/29/20 19:40 O2 Sat by Pulse Oximetry 86 L 12/29/20 19:40 Pain Scale Pain Intensity 2 - Physical Exam General Appearance: no apparent distress, alert Eye Exam: PERRL/EOMI, eyes nml inspection Ears, Nose, Throat Exam: normal ENT inspection, TMs normal, pharynx normal, moist mucous membranes Neck Exam: normal inspection, non-tender, supple, full range of motion Respiratory Exam: normal breath sounds, other (Mildly coarse breath sounds bilaterally.), No respiratory distress Cardiovascular Exam: regular rate/rhythm, normal heart sounds, normal peripheral pulses Gastrointestinal/Abdomen Exam: soft, normal bowel sounds, No tenderness, No mass Back Exam: normal inspection, normal range of motion, No CVA tenderness, No vertebral tenderness Extremity Exam: normal inspection, normal range of motion, pelvis stable, other (Left below knee amputation) Neurologic Exam: alert, 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, cooperative, normal mood/affect, nml cerebellar function, nml station & gait, sensation nml, No motor deficits Skin Exam: normal color, warm, dry, No rash Lymphatic Exam: No adenopathy SpO2 Interpretation: normal SpO2: 86 O2 Delivery: Room Air - Course Nursing assessment & vital signs reviewed: Yes EKG Interpreted by Me: RATE (106), Sinus Tach, NORMAL AXIS, NORMAL INTERVALS - Radiology Exams Chest X-ray Interpretation: Teleradiologist Report (Bilateral mixed interstitial and airspace infiltrates right greater than left somewhat more prominent compared to prior exam. Right central venous catheter) - CT Exams Abdomen/Pelvis CT Interpretation: Tele-radiologist Report Ordered Tests: Active Orders 24 hr Category Date Time Status Rn Women Services STAT Care 12/29/20 20:13 Active EKG-ER Only STAT Care 12/29/20 20:12 Active IV Insertion STAT Care 12/29/20 20:12 Active Pulse Oximetry (ED) STAT Care 12/29/20 20:12 Active CHEST 1 VIEW (PORTABLE) Stat Exams 12/29/20 20:34 Taken CBC W DIFF Stat Lab 12/29/20 21:10 Completed CMP Stat Lab 12/29/20 21:10 Completed CULTURE,URINE Stat Lab 12/29/20 20:22 Received MAGNESIUM Stat Lab 12/29/20 21:10 Completed NT PRO BNP Stat Lab 12/29/20 21:10 Completed TROPONIN Q3H Lab 12/29/20 21:01 Completed TROPONIN Q3H Lab 12/29/20 23:36 Completed TROPONIN Q3H Lab 12/30/20 02:10 Completed TROPONIN Q3H Lab 12/30/20 05:15 Ordered TROPONIN Q3H Lab 12/30/20 08:15 Ordered UA W/RFX UR CULTURE Stat Lab 12/29/20 20:22 Completed Medication Summary Generic Name Dose Route Start Last Admin Trade Name Freq PRN Reason Stop Dose Admin Magnesium Sulfate/Dextrose 100 mls @ 100 mls/hr 12/30/20 01:00 12/30/20 02:23 Magnesium 1 Gm / 100 Ml D5w IV 12/30/20 02:59 100 mls/hr Q1H TISHA Administration Discontinued Medications Generic Name Dose Route Start Last Admin Trade Name Freq PRN Reason Stop Dose Admin Enoxaparin Sodium 80 mg 12/30/20 03:27 12/30/20 03:30 Enoxaparin Sodium SQ 12/30/20 03:28 80 mg STAT ONE Administration Enoxaparin Sodium Confirm 12/30/20 03:30 Enoxaparin Sodium Administered 12/30/20 03:31 Dose 80 mg SQ .STK-MED ONE Sodium Chloride 500 mls @ 500 mls/hr 12/30/20 00:51 12/30/20 03:24 Sodium Chloride 0.9% 500 Ml IV 12/30/20 01:50 250 mls/hr .Q1H ONE Infusion Ceftriaxone Sodium/Dextrose 1 g in 50 mls @ 100 mls/hr 12/30/20 00:53 12/30/20 03:24 Rocephin 1 Gm-D5w 50 Ml Bag IV 12/30/20 01:22 Infused STAT STA Infusion Ceftriaxone Sodium/Dextrose Confirm 12/30/20 00:58 Rocephin 1 Gm-D5w 50 Ml Bag Administered 12/30/20 00:59 Dose 1 g in 50 mls @ ud IV .STK-MED ONE Sodium Chloride Confirm 12/30/20 00:58 Sodium Chloride 0.9% 500 Ml Administered 12/30/20 00:59 Dose 500 mls @ ud IV .STK-MED ONE Azithromycin 500 mg in 250 mls @ 250 mls/hr 12/30/20 03:13 12/30/20 03:29 Zithromax 500 Mg/ 250 Ml Nacl Premix IV 12/30/20 04:12 250 mls/hr STAT ONE Administration Azithromycin Confirm 12/30/20 03:28 Zithromax 500 Mg/ 250 Ml Nacl Premix Administered 12/30/20 03:29 Dose 500 mg in 250 mls @ ud IV .STK-MED ONE Ondansetron HCl 4 mg 12/30/20 00:06 12/30/20 00:17 Zofran 4 Mg/2 Ml Vial IV 12/30/20 00:07 4 mg STAT ONE Administration Ondansetron HCl Confirm 12/30/20 00:08 Zofran 4 Mg/2 Ml Vial Administered 12/30/20 00:09 Dose 4 mg .ROUTE .STK-MED ONE Lab/Rad Data: Laboratory Result Diagrams 12/29/20 21:10 12/29/20 21:10 Laboratory Results 12/30/20 12/30/20 12/29/20 Range/Units 02:29 02:10 23:36 WBC (4.0-10.5) K/mm3 RBC (4.1-5.4) M/mm3 Hgb (12.0-16.0) gm/dl Hct (35-47) % MCV (78-100) fl MCH (26-32) pg MCHC (32-36) g/dl RDW (11.5-14.0) % Plt Count (150-450) K/mm3 MPV (7.5-11.0) fl Gran % (36.0-66.0) % Eos # (Auto) (0-0.5) Absolute Lymphs (auto) (1.0-4.6) Absolute Monos (auto) (0.0-1.3) Lymphocytes % (24.0-44.0) % Monocytes % (0.0-12.0) % Eosinophils % (0.00-5.0) % Basophils % (0.0-0.4) % Absolute Granulocytes (1.4-6.9) Basophils # (0-0.4) Sodium (137-145) mmol/L Potassium (3.5-5.1) mmol/L Chloride (98-107) mmol/L Carbon Dioxide (22-30) mmol/L Anion Gap (5-15) MEQ/L BUN (7-17) mg/dL Creatinine (0.52-1.04) mg/dL Estimated GFR ML/MIN Glucose (74-106) mg/dL Calcium (8.4-10.2) mg/dL Magnesium (1.6-2.3) mg/dL Total Bilirubin (0.2-1.3) mg/dL AST (14-36) U/L ALT (0-35) U/L Alkaline Phosphatase (38-126) U/L Troponin I < 0.012 < 0.012 (0.000-0.034) ng/mL NT-Pro-B Natriuret Pep (0-900) pg/mL Serum Total Protein (6.3-8.2) g/dL Albumin (3.5-5.0) g/dL Urine Color (YELLOW) Urine Appearance (CLEAR) Urine pH (5-6) Ur Specific [place] (1.005-1.025) Urine Protein (Negative) Urine Ketones (NEGATIVE) Urine Blood (0-5) Ubaldo/ul Urine Nitrite (NEGATIVE) Urine Bilirubin (NEGATIVE) Urine Urobilinogen (0-1) mg/dL Ur Leukocyte Esterase (NEGATIVE) Urine WBC (Auto) (0-5) /HPF Urine RBC (Auto) (0-2) /HPF U Epithel Cells (Auto) (FEW) /HPF Urine Bacteria (Auto) (NEGATIVE) /HPF U Non-Squamous Epi Cells (FEW) /HPF Amorphous Crystals (NEGATIVE) /HPF Urine Culture Reflexed (NO) Urine Glucose (NEGATIVE) mg/dL SARS-CoV-2 Ag (Rapid) NEGATIVE (NEGATIVE) 12/29/20 12/29/20 12/29/20 Range/Units 21:10 21:10 21:01 WBC 8.3 (4.0-10.5) K/mm3 RBC 3.44 L (4.1-5.4) M/mm3 Hgb 9.7 L (12.0-16.0) gm/dl Hct 30.2 L (35-47) % MCV 87.8 (78-100) fl MCH 28.2 (26-32) pg MCHC 32.1 (32-36) g/dl RDW 15.7 H (11.5-14.0) % Plt Count 143 L (150-450) K/mm3 MPV 9.5 (7.5-11.0) fl Gran % 70.0 H (36.0-66.0) % Eos # (Auto) 0.22 (0-0.5) Absolute Lymphs (auto) 1.54 (1.0-4.6) Absolute Monos (auto) 0.71 (0.0-1.3) Lymphocytes % 18.5 L (24.0-44.0) % Monocytes % 8.5 (0.0-12.0) % Eosinophils % 2.6 (0.00-5.0) % Basophils % 0.4 (0.0-0.4) % Absolute Granulocytes 5.83 (1.4-6.9) Basophils # 0.03 (0-0.4) Sodium 124 L (137-145) mmol/L Potassium 5.0 (3.5-5.1) mmol/L Chloride 88 L (98-107) mmol/L Carbon Dioxide 29 (22-30) mmol/L Anion Gap 11.9 (5-15) MEQ/L BUN 27 H (7-17) mg/dL Creatinine 1.95 H (0.52-1.04) mg/dL Estimated GFR 28.5 ML/MIN Glucose 245 H (74-106) mg/dL Calcium 7.9 L (8.4-10.2) mg/dL Magnesium 1.5 L (1.6-2.3) mg/dL Total Bilirubin 0.40 (0.2-1.3) mg/dL AST 27 (14-36) U/L ALT 14 (0-35) U/L Alkaline Phosphatase 236 H (38-126) U/L Troponin I < 0.012 (0.000-0.034) ng/mL NT-Pro-B Natriuret Pep 591 (0-900) pg/mL Serum Total Protein 5.3 L (6.3-8.2) g/dL Albumin 2.4 L (3.5-5.0) g/dL Urine Color (YELLOW) Urine Appearance (CLEAR) Urine pH (5-6) Ur Specific [place] (1.005-1.025) Urine Protein (Negative) Urine Ketones (NEGATIVE) Urine Blood (0-5) Ubaldo/ul Urine Nitrite (NEGATIVE) Urine Bilirubin (NEGATIVE) Urine Urobilinogen (0-1) mg/dL Ur Leukocyte Esterase (NEGATIVE) Urine WBC (Auto) (0-5) /HPF Urine RBC (Auto) (0-2) /HPF U Epithel Cells (Auto) (FEW) /HPF Urine Bacteria (Auto) (NEGATIVE) /HPF U Non-Squamous Epi Cells (FEW) /HPF Amorphous Crystals (NEGATIVE) /HPF Urine Culture Reflexed (NO) Urine Glucose (NEGATIVE) mg/dL SARS-CoV-2 Ag (Rapid) (NEGATIVE) 12/29/20 Range/Units 20:22 WBC (4.0-10.5) K/mm3 RBC (4.1-5.4) M/mm3 Hgb (12.0-16.0) gm/dl Hct (35-47) % MCV (78-100) fl MCH (26-32) pg MCHC (32-36) g/dl RDW (11.5-14.0) % Plt Count (150-450) K/mm3 MPV (7.5-11.0) fl Gran % (36.0-66.0) % Eos # (Auto) (0-0.5) Absolute Lymphs (auto) (1.0-4.6) Absolute Monos (auto) (0.0-1.3) Lymphocytes % (24.0-44.0) % Monocytes % (0.0-12.0) % Eosinophils % (0.00-5.0) % Basophils % (0.0-0.4) % Absolute Granulocytes (1.4-6.9) Basophils # (0-0.4) Sodium (137-145) mmol/L Potassium (3.5-5.1) mmol/L Chloride (98-107) mmol/L Carbon Dioxide (22-30) mmol/L Anion Gap (5-15) MEQ/L BUN (7-17) mg/dL Creatinine (0.52-1.04) mg/dL Estimated GFR ML/MIN Glucose (74-106) mg/dL Calcium (8.4-10.2) mg/dL Magnesium (1.6-2.3) mg/dL Total Bilirubin (0.2-1.3) mg/dL AST (14-36) U/L ALT (0-35) U/L Alkaline Phosphatase (38-126) U/L Troponin I (0.000-0.034) ng/mL NT-Pro-B Natriuret Pep (0-900) pg/mL Serum Total Protein (6.3-8.2) g/dL Albumin (3.5-5.0) g/dL Urine Color JOJO (YELLOW) Urine Appearance TURBID (CLEAR) Urine pH 6.0 (5-6) Ur Specific [place] 1.011 (1.005-1.025) Urine Protein 30 (Negative) Urine Ketones NEGATIVE (NEGATIVE) Urine Blood MODERATE (0-5) Ubaldo/ul Urine Nitrite NEGATIVE (NEGATIVE) Urine Bilirubin NEGATIVE (NEGATIVE) Urine Urobilinogen NEGATIVE (0-1) mg/dL Ur Leukocyte Esterase LARGE (NEGATIVE) Urine WBC (Auto) >100 (0-5) /HPF Urine RBC (Auto) 26-50 (0-2) /HPF U Epithel Cells (Auto) RARE (FEW) /HPF Urine Bacteria (Auto) MODERATE (NEGATIVE) /HPF U Non-Squamous Epi Cells RARE (FEW) /HPF Amorphous Crystals FEW (NEGATIVE) /HPF Urine Culture Reflexed YES (NO) Urine Glucose 50 (NEGATIVE) mg/dL SARS-CoV-2 Ag (Rapid) (NEGATIVE) - Progress Progress: improved Progress Note: Patient reassessed. She feels much better. Patient received fluids. To address hyponatremia of 124. Magnesium was replaced. Antibiotic infused for urinary tract infection. Patient's chart initially reflected Eliquis, so a D- dimer was not ordered. patient later informed us that she has been off of Eliquis for 1 month due to plans to create an AV fistula on 19 January. Patient was on Eliquis due to a PE. In light of patient's hypoxia upon initial presentation we administered a dose of Lovenox. UA reveals a urinary tract infection. Patient received a dose of Rocephin. Patient's chest x-ray showed bilateral mixed interstitial and airspace infiltrates right greater than left somewhat more prominent compared to prior exam. Is unclear whether this represents a pneumonia however we added additional coverage with azithromycin. Case discussed with Dr. Alberto hospitalist at [facility] who accepts admission ER to ER. Dr. Alberto requested a Covid test. Covid test was performed and was negative. 12/30/20 03:30 Counseled pt/family regarding: lab results, diagnosis, rad results - Departure Departure Disposition: Transfer Clinical Impression: Hypoxia, Normocytic anemia, Thrombocytopenia, Hyponatremia, Hyperglycemia, Hypomagnesemia, ESRD (end stage renal disease) Condition: Stable Critical Care Time: No Referrals: SARAH AMIN DO [Primary Care Provider] -
[2020-12-29 20:47] LABS: Amourphous Crystal FEW /HPF (NEGATIVE); Appearance TURBID (CLEAR); Bacteria MODERATE /HPF (NEGATIVE); Bilirubin NEGATIVE (NEGATIVE); Blood MODERATE Ery/ul (0-5); Epithelial Cells RARE /HPF (FEW); Glucose 50 mg/dL (NEGATIVE); Ketones NEGATIVE (NEGATIVE); Leukocyte Esterase LARGE (NEGATIVE); Nitrite NEGATIVE (NEGATIVE); Non-Squamous Epithelial Cells RARE /HPF (FEW); Protein,Urine Dip 30 (Negative); RBC 26-50 /HPF (0-2); Specific Gravity 1.011 (1.005-1.025); Urobilinogen NEGATIVE mg/dL (0-1); WBC >100 /HPF (0-5)
[2020-12-29 21:33] LABS: Absolute Neutrophil Ct (ANC) 5.83 (1.4-6.9); BASOPHIL % 0.4 % (0.0-0.4); Basophil (Absolute #) 0.03 (0-0.4); Eosinophil % 2.6 % (0.00-5.0); Eosinophil (Absolute #) 0.22 (0-0.5); Hematocrit 30.2 % (35-47); Hemoglobin 9.7 gm/dl (12.0-16.0); Lymphocyte (Absolute #) 1.54 (1.0-4.6); Lymphocytes % 18.5 % (24.0-44.0); Mean Cell Volume 87.8 fl (78-100); Mean Corpuscular Hemoglobin 28.2 pg (26-32); Mean Corpuscular Hgb Concent. 32.1 g/dl (32-36); Mean Platelet Volume 9.5 fl (7.5-11.0); Monocyte (Absolute #) 0.71 (0.0-1.3); Monocytes % 8.5 % (0.0-12.0); Platelet Count 143 K/mm3 (150-450); Red Blood Count 3.44 M/mm3 (4.1-5.4); Red Cell Distribution Width 15.7 % (11.5-14.0); White Blood Count 8.3 K/mm3 (4.0-10.5)
[2020-12-29 21:57] LABS: ALBUMIN 2.4 g/dL (3.5-5.0); ANION GAP 11.9 MEQ/L (5-15); BILIRUBIN,TOTAL 0.4 mg/dL (0.2-1.3); Calcium 7.9 mg/dL (8.4-10.2); Creatinine 1 1.95 mg/dL (0.52-1.04); EST GLOMERULAR FILTRATION RATE 28.5 ML/MIN; MAGNESIUM 1.5 mg/dL (1.6-2.3); Total Protein 5.3 g/dL (6.3-8.2)
[2020-12-30] MEDS ORDERED: Zofran 4 MG/2 ML VIAL IV ONE (00:06)
[2020-12-30] MEDS ORDERED: Zofran 4 MG/2 ML VIAL ONE (00:08)
[2020-12-30] MEDS ORDERED: Sodium Chloride 0.9% 500 ML 500 ML IV ONE ×2 (00:51→00:58)
[2020-12-30] MEDS ORDERED: ROCEPHIN 1 Gm-D5w 50 ml Bag** 1 G/50 ML IVPB IV STA (00:53)
[2020-12-30] MEDS ORDERED: ROCEPHIN 1 Gm-D5w 50 ml Bag** 1 G/50 ML IVPB IV ONE (00:58)
[2020-12-30] MEDS ORDERED: Magnesium 1 Gm / 100 Ml D5W*** 100 ML IV ONE ×2 (00:58→02:20)
[2020-12-30] MEDS: Magnesium 1 Gm / 100 Ml D5W*** 100 ML IV SCH ×2 (01:47→02:23)
[2020-12-30 02:51] LABS: COVID AG -BINAX NOW RAPID TEST NEGATIVE (NEGATIVE)
[2020-12-30] MEDS ORDERED: Zithromax 500 MG/ 250 ML NaCl Premix 500 MG/250 ML IVPB IV ONE ×2 (03:13→03:28)
[2020-12-30] MEDS ORDERED: ENOXAPARIN SODIUM SQ ONE ×2 (03:27→03:30)
[2020-12-30 04:06] VITALS: BP 136/75; PULSE 97
[2020-12-30 04:32] VITALS: O2SAT 86
--- NOTE | 2020-12-30 16:25 | XRAY ---
Exam: AP upright portable chest film from 12/29/2020. Comparison: AP portable chest film from 12/18/2020 and 11/29/2020. Indication: Shortness of breath; patient has dialysis port. Findings: The transverse heart size is not enlarged. I note bilateral mixed interstitial and alveolar opacities, most prominent at the right lung base and left perihilar projection. These latter sites appear somewhat more prominent than that seen on 12/18/2020. Correlate clinically regarding pneumonia. The lungs are mildly hypoinflated. There is no pneumothorax or significant pleural effusion. A right jugular dialysis catheter is seen with the tip near the SVC/right atrium junction pointing inferiorly. This is unchanged. No acute osseous process is seen. Impression: 1. Bilateral mixed interstitial/alveolar opacities are noted, most prominent overlying the right lung base and left perihilar region extending into the mid left lung base. These latter findings appear somewhat more prominent as compared to 12/18/2020. Correlate clinically regarding pneumonia. 2. The heart size remains normal, and I see no significant pleural effusion. 3. Right-sided dialysis catheter is again seen.
== END 2020-12-30 04:35 | disposition short-term general hospital (02) ==
LOC: ED 19:19
DX: R09.02 Hypoxemia (principal)
CPT/HCPCS: 36000; 36415; 71045; 80053; 81001; 83735; 83880; 84484; 85025; 87086; 93005; 93041; 94760; 96360; 96372; 96374; 99000; 99285; J0456; J0696; J1650; J2405; J3475

== ENCOUNTER 2021-01-14 12:50 | Emergency (ER) | payer MEDICARE ==
[2021-01-14] MEDS ORDERED: PROTONIX 40 MG IV IV ONE ×2 (13:20→13:26)
[2021-01-14] MEDS ORDERED: Compazine 10 MG/2 ML IV ONE (13:20)
[2021-01-14 13:26] LABS: Absolute Neutrophil Ct (ANC) 13.71 (1.4-6.9); BASOPHIL % 0.3 % (0.0-0.4); Basophil (Absolute #) 0.05 (0-0.4); Eosinophil % 0.6 % (0.00-5.0); Eosinophil (Absolute #) 0.09 (0-0.5); Hematocrit 40.7 % (35-47); Hemoglobin 13.3 gm/dl (12.0-16.0); Lymphocyte (Absolute #) 1.64 (1.0-4.6); Lymphocytes % 10.1 % (24.0-44.0); Mean Corpuscular Hemoglobin 27.8 pg (26-32); Mean Corpuscular Hgb Concent. 32.7 g/dl (32-36); Monocyte (Absolute #) 0.74 (0.0-1.3); Monocytes % 4.6 % (0.0-12.0); Neutrophil % 84.4 % (36.0-66.0); Platelet Count 184 K/mm3 (150-450); Red Blood Count 4.79 M/mm3 (4.1-5.4); Red Cell Distribution Width 15.5 % (11.5-14.0); White Blood Count 16.2 K/mm3 (4.0-10.5)
[2021-01-14] MEDS ORDERED: Sodium Chloride 0.9% 1000 ML 1,000 ML ONE (13:26)
[2021-01-14] MEDS ORDERED: Compazine 10 MG/2 ML ONE ×2 (13:26→13:40)
[2021-01-14] MEDS ORDERED: Sodium Chloride 0.9% 1000 ML 1,000 ML IV SCH (13:30)
[2021-01-14 14:04] LABS: VBG BASE EXCESS 10.2 (-2.0-2.0); VBG CARBOXYHEMOGLOBIN 4.3 % T HGB (0.0-6.9); VBG HCO3- 37.9 meq/L (22-28); VBG HEMOGLOBIN 14.2; VBG pH 7.38 (7.32-7.42)
[2021-01-14 14:06] LABS: VBG POTASSIUM 7.7 (3.5-5.1)
[2021-01-14] MEDS ORDERED: HUMULIN R IV ONE (14:18)
[2021-01-14] MEDS ORDERED: VELTASSA PO STA (14:19)
[2021-01-14] MEDS ORDERED: Lasix 40 MG/4 ML IV ONE (14:19)
[2021-01-14] MEDS ORDERED: CALCIUM CHLORIDE 10% 1000 MG IV ONE (14:19)
[2021-01-14 14:32] LABS: INFLUENZA A NEGATIVE (NEGATIVE); INFLUENZA B NEGATIVE (NEGATIVE)
--- NOTE | 2021-01-14 14:34 | ERPHSYRPT ---
- History of Present Illness Time Seen by Provider: 01/14/21 12:50 Source: patient Exam Limitations: clinical condition Patient Subjective Stated Complaint: "I keep throwing up and can't keep anything down." Triage Nursing Assessment: This 55 y/o female reported having URQ/ULQ abdominal pain onset three days prior. She reported history of liver and kidney problems and goes to dialysis M//. She did have a complete dialysis session on Monday. She reported having vomiting after meals and fluid intake. Denied headache, dizziness, chest pain, shortness of breath, fevers, chills, cold- sweats. Pupils 3mm bilateral. EOMs intact. Oral mucosa pink/dry. neck supple non-tender without lymphadenopathy. Symmetrical chest excursion. Heart tones S1 /S2 without extra sounds. Lungs vesicular with adequate airflow. Abdomen obese non-distended with normal bowel sounds. Mild diffuse tenderness to palpation. Peripheral pulses +3 bilateral. Patient has a left BKA with a wound visible. The wound is roughly 3 x 4 cm without exudate, edema, or erythema. Patient reported it is secondary to hitting her leg on a chair at home. Physician History: This is a 55-year-old white female who presents with 3-day history of vomiting a nd bilateral upper quadrant abdominal pain. She is a patient of Dr. Magallanes. She was seen here on 12/18/2020 and 12/29/2020 for the same symptoms. [facility]. Patient has what appears to be intractable, intermittent, chronic vomiting episodes and may have a gastroparesis. She has been seen by pin cleaner Dr. Valencia in the past. She has an appointment to see a new pin cleaner in [place] in February 2021. Patient has multiple medical problems including insulin-dependent diabetes, COPD, pulmonary embolism, deep venous thromboses, gastroesophageal reflux disease, end-stage renal disease with dialysis on Wednesdays and Fridays. She does produce urine. She also has a history of chronic anemia and hypothyroidism. She also complains of some generalized weakness. The patient was transferred out of this emergency department on 12/29/2020 to [facility]. She was in that hospital for 3 days and then discharged to home. Allergies/Adverse Reactions: adhesive tape Allergy (Mild, Verified 01/14/21 12:56) Blisters redness clindamycin Adverse Reaction (Mild, Verified 01/14/21 12:56) Skin Irritation sunburn like redness and itching bee stings Allergy (Mild, Uncoded 01/14/21 12:56) Anaphylactic Reaction trouble breathing and swelling. Home Medications: Duloxetine HCl 30 mg [Cymbalta 30 MG Capsule] 30 mg PO BID 11/17/12 [Hi story] Albuterol Sulfate [Proair Hfa] 2 puff IH Q4HPRN PRN 04/21/15 [History] Omeprazole 20 MG [Prilosec 20 mg] 20 mg PO DAILY 04/21/15 [History] Pravastatin Sodium [Pravachol] 10 mg PO HS 02/07/16 [History] Gabapentin [Gralise] 400 mg PO TID 11/11/16 [History] Docusate Sodium 100 mg [Colace 100 MG] 100 mg PO HSPRN PRN 01/18/19 [History] Ergocalciferol (Vitamin D2) [Vitamin D] 50,000 units PO CHEW 01/18/19 [History] Ferrous Sulfate 325 mg PO BID 01/18/19 [History] Hydroxyzine HCl 10 mg PO BID 01/18/19 [History] Levothyroxine Sodium 25 Mcg [Synthroid 25 Mcg] 25 mcg PO DAILY 01/18/19 [ History] Insulin Glargine [Lantus Insulin] 20 units SQ BID 09/27/19 [History] Tiotropium [place] [Spiriva Respimat] 1 puff IH DAILY 10/14/19 [History] Insulin Lispro [Humalog Kwikpen U-100] 10 unit SQ TIDWMEALS 03/27/20 [History] Promethazine HCl 25 mg [Phenergan 25 mg] 25 mg PO Q6HPRN PRN 03/27/20 [History] Hydrocodone/Acetaminophen [Hydrocodone-Acetamin 10-325 mg^^^] 1 ea PO BID [History] Nicotine 14 mg [Nicoderm Cq 14 mg] 14 mg TD Q24H 06/21/20 [History] Albuterol 2.5 mg/3 ml Neb [Proventil 2.5 mg/3 ml Neb] 1 ampul IH QID PRN 07/16/20 [History] Midodrine HCl 10 mg PO QID 09/30/20 [History] Hx Tetanus, Diphtheria Vaccination/Date Given: Yes Hx Influenza Vaccination/Date Given: Yes Hx Pneumococcal Vaccination/Date Given: Yes Travel Risk - International Travel Have you traveled outside of the country in past 3 weeks: No - Coronavirus Screening Are you exhibiting any of the following symptoms?: No Close contact with a COVID-19 positive Pt in past 14-21 Days: No - Vaccine Status Have you recieved a Covid-19 vaccination: Yes Wire Inspector: Moderna - Vaccination Dates Date of 2cond Vaccination (if applicable): 12/04/20 - Past Medical History Pertinent Past Medical History: Yes Neurological History: Peripheral Neuropathy ENT History: No Pertinent History Cardiac History: Deep Vein Thrombosis, Hypertension Respiratory History: Asthma, CHF, COPD, Pneumonia, Pulmonary Embolism Endocrine Medical History: Diabetes Type II, Hypoglycemia, Hypothyroidism Musculoskeletal History: Fractures GI Medical History: GERD, Other History: Renal Disease Psycho-Social History: Anxiety, Depression Female Reproductive Disorders: Fibroids Other Medical History: Left Ankle FX with multiple surgeries, 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 HX ascites. DX fatty liver - Past Surgical History Past Surgical History: Yes Neuro Surgical History: No Pertinent History Cardiac: No Pertinent History Respiratory: No Pertinent History Gastrointestinal: Cholecystectomy, Exploratory Laparoscopy Genitourinary: No Pertinent History Musculoskeletal: Amputation Female Surgical History: Section, Hysterectomy Other Surgical History: foot surgery, screw placed in left big toe, removal, and HX antibiotic bead placement. mult lt foot surgeries. LT BKA February 2019. Dialysis M,W,F - Social History Smoking Status: Current every day smoker How long have you smoked: 36 years Exposure to second hand smoke: Yes Drug Use: none Patient Lives Alone: No Significant Family History: no pertinent family hx - Female History Hx Now: No - Nursing Vital Signs Nursing Vital Signs: Initial Vital Signs Temperature 97.9 F 01/14/21 12:50 Pulse Rate 114 H 01/14/21 12:50 Respiratory Rate 24 01/14/21 12:50 Blood Pressure 169/126 01/14/21 12:50 O2 Sat by Pulse Oximetry 96 01/14/21 12:50 Pain Scale Pain Intensity 4 - Physical Exam SpO2: 98 - Course Nursing assessment & vital signs reviewed: Yes Ordered Tests: Active Orders 24 hr Category Date Time Status IV Insertion STAT Care 01/14/21 13:20 Active ABDOMEN AND PELVIS W/0 CONTRAS [CT] Stat Exams 01/14/21 13:21 Completed AMYLASE Stat Lab 01/14/21 14:00 Completed BLOOD CULTURE Stat Lab 01/14/21 14:10 Received CBC W DIFF Stat Lab 01/14/21 13:20 Completed CMP Stat Lab 01/14/21 14:00 Completed INFLUENZA A+B ABBEY Stat Lab 01/14/21 13:40 Completed LIPASE Stat Lab 01/14/21 14:00 Completed Lactic Acid Stat Lab 01/14/21 13:20 Completed Lactic Acid Stat Lab 01/14/21 15:52 Completed MAG [MAGNESIUM] Stat Lab 01/14/21 14:00 Completed UA W/RFX UR CULTURE Stat Lab 01/14/21 13:21 Ordered VBG [VENOUS BLOOD GAS] Stat Lab 01/14/21 14:03 Completed Medication Summary Generic Name Dose Route Start Last Admin Trade Name Freq PRN Reason Stop Dose Admin Sodium Chloride 1,000 mls @ 100 mls/hr 01/14/21 13:30 01/14/21 13:28 Sodium Chloride 0.9% 1000 Ml IV 02/13/21 13:29 100 mls/hr .Q10H TISHA Administration Discontinued Medications Generic Name Dose Route Start Last Admin Trade Name Freq PRN Reason Stop Dose Admin Calcium Chloride 1,000 mg 01/14/21 14:19 01/14/21 14:55 Calcium Chloride 10% 1000 Mg IV 01/14/21 14:20 Not Given STAT ONE Furosemide 40 mg 01/14/21 14:19 01/14/21 14:55 Lasix 40 Mg/4 Ml IV 01/14/21 14:20 Not Given STAT ONE Magnesium Sulfate/Dextrose 100 mls @ 200 mls/hr 01/14/21 15:15 01/14/21 15:28 Magnesium 1 Gm / 100 Ml D5w IV 01/14/21 15:44 200 mls/hr STAT ONE Administration Magnesium Sulfate/Dextrose Confirm 01/14/21 15:25 Magnesium 1 Gm / 100 Ml D5w Administered 01/14/21 15:26 Dose 100 mls @ ud IV .STK-MED ONE Ceftriaxone Sodium/Dextrose 1 g in 50 mls @ 100 mls/hr 01/14/21 16:08 01/14/21 17:00 Rocephin 1 Gm-D5w 50 Ml Bag IV 01/14/21 16:37 100 ml/hr STAT STA 100 mls/hr Administration Ceftriaxone Sodium/Dextrose Confirm 01/14/21 16:59 Rocephin 1 Gm-D5w 50 Ml Bag Administered 01/14/21 17:00 Dose 1 g in 50 mls @ ud IV .[facility] ONE Insulin Human Regular 15 unit 01/14/21 14:18 01/14/21 14:54 Humulin R IV 01/14/21 14:19 Not Given STAT ONE Pantoprazole Sodium 40 mg 01/14/21 13:20 01/14/21 13:28 Protonix 40 Mg Iv IV 01/14/21 13:21 40 mg STAT ONE Administration Pantoprazole Sodium Confirm 01/14/21 13:26 Protonix 40 Mg Iv Administered 01/14/21 13:27 Dose [address] ONE Patiromer 8.4 gm 01/14/21 14:19 01/14/21 14:55 [place] PO 01/14/21 14:20 Not Given STAT STA Prochlorperazine Edisylate 10 mg 01/14/21 13:20 01/14/21 13:41 Compazine 10 Mg/2 Ml IV 01/14/21 13:21 10 mg STAT ONE Administration Prochlorperazine Edisylate Confirm 01/14/21 13:26 Compazine 10 Mg/2 Ml Administered 01/14/21 13:27 Dose 10 mg .ROUTE .[facility] ONE Prochlorperazine Edisylate Confirm 01/14/21 13:40 Compazine 10 Mg/2 Ml Administered 01/14/21 13:41 Dose 10 mg .ROUTE .[facility] ONE Lab/Rad Data: Laboratory Result Diagrams 01/14/21 13:20 01/14/21 14:00 Laboratory Results 01/14/21 01/14/21 01/14/21 Range/Units 15:52 14:03 14:00 WBC (4.0-10.5) K/mm3 RBC (4.1-5.4) M/mm3 Hgb (12.0-16.0) gm/dl Hct (35-47) % MCV (78-100) fl MCH (26-32) pg MCHC (32-36) g/dl RDW (11.5-14.0) % Plt Count (150-450) K/mm3 MPV (7.5-11.0) fl Gran % (36.0-66.0) % Eos # (Auto) (0-0.5) Absolute Lymphs (auto) (1.0-4.6) Absolute Monos (auto) (0.0-1.3) Lymphocytes % (24.0-44.0) % Monocytes % (0.0-12.0) % Eosinophils % (0.00-5.0) % Basophils % (0.0-0.4) % Absolute Granulocytes (1.4-6.9) Basophils # (0-0.4) pO2/FiO2 Ratio 21.0 % VBG pH 7.38 (7.32-7.42) VBG pCO2 at Pat Temp 64 H* (42-55) mm/Hg VBG pO2 at Pat Temp 26 (25-40) mm/Hg VBG HCO3 37.9 H* (22-28) meq/L VBG O2 Sat (Radha) 38.0 L (95-100) VBG Base Excess 10.2 H (-2.0-2.0) VBG Hemoglobin 14.2 VBG Carboxyhemoglobin 4.3 (0.0-6.9) % T HGB POC Potassium 7.7 H* (3.5-5.1) Sodium (137-145) mmol/L Potassium (3.5-5.1) mmol/L Chloride (98-107) mmol/L Carbon Dioxide (22-30) mmol/L Anion Gap (5-15) MEQ/L BUN (7-17) mg/dL Creatinine (0.52-1.04) mg/dL Estimated GFR ML/MIN Glucose (74-106) mg/dL Lactic Acid 1.6 (0.4-2.0) Calcium (8.4-10.2) mg/dL Magnesium 1.5 L (1.6-2.3) mg/dL Total Bilirubin (0.2-1.3) mg/dL AST (14-36) U/L ALT (0-35) U/L Alkaline Phosphatase (38-126) U/L Serum Total Protein (6.3-8.2) g/dL Albumin (3.5-5.0) g/dL Amylase (30-110) U/L Lipase (23-300) U/L Influenza Type A Ag (NEGATIVE) Influenza Type B Ag (NEGATIVE) 01/14/21 01/14/21 01/14/21 Range/Units 14:00 13:40 13:20 WBC (4.0-10.5) K/mm3 RBC (4.1-5.4) M/mm3 Hgb (12.0-16.0) gm/dl Hct (35-47) % MCV (78-100) fl MCH (26-32) pg MCHC (32-36) g/dl RDW (11.5-14.0) % Plt Count (150-450) K/mm3 MPV (7.5-11.0) fl Gran % (36.0-66.0) % Eos # (Auto) (0-0.5) Absolute Lymphs (auto) (1.0-4.6) Absolute Monos (auto) (0.0-1.3) Lymphocytes % (24.0-44.0) % Monocytes % (0.0-12.0) % Eosinophils % (0.00-5.0) % Basophils % (0.0-0.4) % Absolute Granulocytes (1.4-6.9) Basophils # (0-0.4) pO2/FiO2 Ratio % VBG pH (7.32-7.42) VBG pCO2 at Pat Temp (42-55) mm/Hg VBG pO2 at Pat Temp (25-40) mm/Hg VBG HCO3 (22-28) meq/L VBG O2 Sat (Radha) (95-100) VBG Base Excess (-2.0-2.0) VBG Hemoglobin VBG Carboxyhemoglobin (0.0-6.9) % T HGB POC Potassium (3.5-5.1) Sodium 126 L (137-145) mmol/L Potassium 3.5 (3.5-5.1) mmol/L Chloride 86 L (98-107) mmol/L Carbon Dioxide 34 H (22-30) mmol/L Anion Gap 9.3 (5-15) MEQ/L BUN 14 (7-17) mg/dL Creatinine 1.80 H (0.52-1.04) mg/dL Estimated GFR 31.3 ML/MIN Glucose 315 H (74-106) mg/dL Lactic Acid 2.7 H (0.4-2.0) Calcium 7.9 L (8.4-10.2) mg/dL Magnesium (1.6-2.3) mg/dL Total Bilirubin 0.60 (0.2-1.3) mg/dL AST 27 (14-36) U/L ALT 14 (0-35) U/L Alkaline Phosphatase 219 H (38-126) U/L Serum Total Protein 6.6 (6.3-8.2) g/dL Albumin 3.1 L (3.5-5.0) g/dL Amylase 31 (30-110) U/L Lipase 30 (23-300) U/L Influenza Type A Ag NEGATIVE (NEGATIVE) Influenza Type B Ag NEGATIVE (NEGATIVE) 01/14/21 Range/Units 13:20 WBC 16.2 H (4.0-10.5) K/mm3 RBC 4.79 (4.1-5.4) M/mm3 Hgb 13.3 (12.0-16.0) gm/dl Hct 40.7 (35-47) % MCV 85.0 (78-100) fl MCH 27.8 (26-32) pg MCHC 32.7 (32-36) g/dl RDW 15.5 H (11.5-14.0) % Plt Count 184 (150-450) K/mm3 MPV 10.0 (7.5-11.0) fl Gran % 84.4 H (36.0-66.0) % Eos # (Auto) 0.09 (0-0.5) Absolute Lymphs (auto) 1.64 (1.0-4.6) Absolute Monos (auto) 0.74 (0.0-1.3) Lymphocytes % 10.1 L (24.0-44.0) % Monocytes % 4.6 (0.0-12.0) % Eosinophils % 0.6 (0.00-5.0) % Basophils % 0.3 (0.0-0.4) % Absolute Granulocytes 13.71 H (1.4-6.9) Basophils # 0.05 (0-0.4) pO2/FiO2 Ratio % VBG pH (7.32-7.42) VBG pCO2 at Pat Temp (42-55) mm/Hg VBG pO2 at Pat Temp (25-40) mm/Hg VBG HCO3 (22-28) meq/L VBG O2 Sat (Radha) (95-100) VBG Base Excess (-2.0-2.0) VBG Hemoglobin VBG Carboxyhemoglobin (0.0-6.9) % T HGB POC Potassium (3.5-5.1) Sodium (137-145) mmol/L Potassium (3.5-5.1) mmol/L Chloride (98-107) mmol/L Carbon Dioxide (22-30) mmol/L Anion Gap (5-15) MEQ/L BUN (7-17) mg/dL Creatinine (0.52-1.04) mg/dL Estimated GFR ML/MIN Glucose (74-106) mg/dL Lactic Acid (0.4-2.0) Calcium (8.4-10.2) mg/dL Magnesium (1.6-2.3) mg/dL Total Bilirubin (0.2-1.3) mg/dL AST (14-36) U/L ALT (0-35) U/L Alkaline Phosphatase (38-126) U/L Serum Total Protein (6.3-8.2) g/dL Albumin (3.5-5.0) g/dL Amylase (30-110) U/L Lipase (23-300) U/L Influenza Type A Ag (NEGATIVE) Influenza Type B Ag (NEGATIVE) - Progress Progress: improved, re-examined Progress Note: 01/14/21 16:06 CAT scan of the abdomen pelvis shows a cirrhotic liver, splenorenal varices, intra-abdominal ascites, bibasilar interstitial/alveolar opacities. 01/14/21 16:09 The patient had initial labs drawn which showed elevated potassium and other significantly abnormal labs. I put orders in to help lower the elevated potassium. However, after I put the orders in, laboratory came down to redraw since the specimen was hemolyzed. Therefore, the orders were canceled and not given to the patient. 01/14/21 17:18 Medical decision making: This patient needs admission into a hospital facility that can perform hemodialysis. Patient is scheduled for hemodialysis tomorrow. She also has leukocytosis, abdominal pain, recurrent abdominal ascites, hyponatr emia and hypomagnesemia. Originally discussed with the patient possible transfer to [facility] in [place]. She just was discharged from there within the last couple of weeks. Patient refuses to go back to that facility. I contacted [facility] and spoke with the emergency department physician Dr. Bradshaw. I reviewed the patient history, results of laboratory work-up and results of radiographic work-up with him. He accepts the patient in transfer. Patient is agreeable to transfer to [facility] in [facility]. Counseled pt/family regarding: lab results, diagnosis, rad results - Departure Departure Disposition: Transfer Clinical Impression: Intractable vomiting, Hyponatremia, Hypomagnesemia, Leukocytosis, Ascites Condition: Fair Critical Care Time: No Referrals: SARAH AMIN, [Primary Care Provider] -
[2021-01-14 14:39] LABS: ALBUMIN 3.1 g/dL (3.5-5.0); ANION GAP 9.3 MEQ/L (5-15); BILIRUBIN,TOTAL 0.6 mg/dL (0.2-1.3); Calcium 7.9 mg/dL (8.4-10.2); Creatinine 1 1.8 mg/dL (0.52-1.04); EST GLOMERULAR FILTRATION RATE 31.3 ML/MIN; Potassium 3.5 mmol/L (3.5-5.1); Total Protein 6.6 g/dL (6.3-8.2)
[2021-01-14] MEDS ORDERED: Magnesium 1 Gm / 100 Ml D5W*** 100 ML IV ONE ×2 (15:15→15:25)
--- NOTE | 2021-01-14 15:29 | XRAY ---
Exam: CT of the abdomen and pelvis without IV contrast from 01/14/2021. Comparison: CT of the abdomen and pelvis without IV contrast from 12/18/2020. Indication: 55-year-old female with bilateral upper abdominal pain; nausea and vomiting 2 days with weakness. The patient has a history of prior cholecystectomy and hysterectomy. Technique: Non-IV contrast axial images were obtained through the abdomen and pelvis. Reconstructed coronal and sagittal images were created and reviewed. Findings: The lung bases again reveal moderate bilateral scattered interstitial/alveolar opacities with bronchiectasis representing no significant interval change from 12/18/2020. There appears to be a catheter extending into the right atrium. The liver appears relatively small and has a nodular contour suggestive of cirrhosis. A definite focal hepatic mass or intrahepatic biliary duct distention is not seen. Surgical clips consistent with prior cholecystectomy are again seen within the right upper quadrant. The spleen is enlarged measuring up to 14.7 cm in maximum transverse diameter and 15.2 cm in craniocaudal dimension. In addition, I again note multiple varicosities medial to the spleen and anterior to the left kidney. There is also a large amount of scattered ascites throughout the abdomen and pelvis. This appears relatively similar to 12/18/2020. The findings are suggestive of portal hypertension. The pancreas and adrenal glands appear unremarkable. Subtle scattered calcifications are seen within the kidneys which are likely vascular, although tiny nonobstructing stones are difficult to entirely exclude. There is no hydronephrosis or definite renal mass. The right kidney is smaller than the left kidney. The right kidney measures 8.2 cm in length on coronal image #104, and the left kidney measures 9.7 cm in length on coronal image #109. Atherosclerotic vascular calcification is seen within the abdominal aorta and iliac arteries. No evidence of abdominal aortic aneurysm or abnormal retroperitoneal lymphadenopathy is seen. A retroaortic left renal vein is again seen. I see no free intraperitoneal air. I again see a fat-containing umbilical hernia. In addition, just inferior to this and to the left of midline, I see another smaller fat-containing ventral hernia which is unchanged. Increased markings are seen superficially within the lower abdominal subcutaneous fat representing no change. This may be due to edema or bruising/induration. I see no definite findings to suggest appendicitis within the right lower quadrant. The bowel is not distended. The uterus is surgically absent. The urinary bladder is mildly distended. Urinary bladder wall thickness is less pronounced. No other pelvic mass or abnormal pelvic lymphadenopathy is seen. The skeleton reveals no acute fracture or aggressive bone lesion. Mild diffuse degenerative changes are seen within the lower thoracic spine. Impression: 1. The bowel gas pattern appears unremarkable. There is no evidence of bowel obstruction or free intraperitoneal air. 2. I again see a cirrhotic liver, moderate splenomegaly with splenorenal varices, and a large amount of ascites within the abdomen and pelvis. There is likely portal venous hypertension. 3. Other incidental abdominal/pelvic findings, as discussed above, representing no significant change. 4. Chronic scattered bibasilar interstitial/alveolar opacities with concomitant bronchiectasis.
[2021-01-14] MEDS ORDERED: ROCEPHIN 1 Gm-D5w 50 ml Bag** 1 G/50 ML IVPB IV STA (16:08)
[2021-01-14] MEDS ORDERED: ROCEPHIN 1 Gm-D5w 50 ml Bag** 1 G/50 ML IVPB IV ONE (16:59)
[2021-01-14 19:01] VITALS: BP 92/61; PULSE 100; O2SAT 97
== END 2021-01-14 20:15 | disposition short-term general hospital (02) ==
LOC: ED 12:50
DX: R11.10 Vomiting, unspecified (principal); E87.1 Hypo-osmolality and hyponatremia; E83.42 Hypomagnesemia; D72.829 Elevated white blood cell count, unspecified; R18.8 Other ascites
CPT/HCPCS: 36000; 36415; 74176; 80053; 82150; 82805; 83605; 83690; 83735; 85025; 87040; 87400; 96360; 96361; 96365; 96367; 96374; 96375; 99285; J0696; J3475

== ENCOUNTER 2021-01-24 19:13 | Emergency (ER) | payer MEDICARE ==
--- NOTE | 2021-01-24 19:16 | ERPHSYRPT ---
- History of Present Illness Time Seen by Provider: 01/24/21 19:15 Source: patient, family Exam Limitations: no limitations Physician History: This is a 55-year-old white female who continues to smoke and has a history of COPD, CHF, recurrent bronchitis, insulin-dependent diabetes, chronic hyponatremia, chronic anemia, chronic kidney disease requiring hemodialysis ay Monday and Monday as well as cirrhosis, gastroesophageal reflux disease elevated cholesterol and hypothyroidism. Patient has history of DVT and pulmonary embolism in the past. Patient underwent a paracentesis yesterday and they removed ascitic fluid in her abdominal cavity. Today she became short of breath and she thought it would get better but it has not improved. She has dialysis tomorrow. Patient states that she does use 2 L of oxygen wearing it today. Activities at Onset: none Severity of Dyspnea-Max: mild Severity of Dyspnea-Current: mild Possible Cause: frequent episodes Allergies/Adverse Reactions: adhesive tape Allergy (Mild, Verified 01/24/21 19:15) Blisters redness clindamycin Adverse Reaction (Mild, Verified 01/24/21 19:15) Skin Irritation sunburn like redness and itching bee stings Allergy (Mild, Uncoded 01/24/21 19:15) Anaphylactic Reaction trouble breathing and swelling. Home Medications: Duloxetine HCl 30 mg [Cymbalta 30 MG Capsule] 30 mg PO BID 11/17/12 [History] Albuterol Sulfate [Proair Hfa] 2 puff IH Q4HPRN PRN 04/21/15 [History] Omeprazole 20 MG [Prilosec 20 mg] 20 mg PO DAILY 04/21/15 [History] Pravastatin Sodium [Pravachol] 10 mg PO HS 02/07/16 [History] Gabapentin [Gralise] 400 mg PO TID 11/11/16 [History] Docusate Sodium 100 mg [Colace 100 MG] 100 mg PO HSPRN PRN 01/18/19 [History] Ergocalciferol (Vitamin D2) [Vitamin D] 50,000 units PO CHEW 01/18/19 [History] Ferrous Sulfate 325 mg PO BID 01/18/19 [History] Hydroxyzine HCl 10 mg PO BID 01/18/19 [History] Levothyroxine Sodium 25 Mcg [Synthroid 25 Mcg] 25 mcg PO DAILY 01/18/19 [History] Insulin Glargine [Lantus Insulin] 20 units SQ BID 09/27/19 [History] Tiotropium Picher [Spiriva Respimat] 1 puff IH DAILY 10/14/19 [History] Insulin Lispro [Humalog Kwikpen U-100] 10 unit SQ TIDWMEALS 03/27/20 [History] Promethazine HCl 25 mg [Phenergan 25 mg] 25 mg PO Q6HPRN PRN 03/27/20 [History] Hydrocodone/Acetaminophen [Hydrocodone-Acetamin 10-325 mg^^^] 1 ea PO BID 06/01/20 [History] Nicotine 14 mg [Nicoderm Cq 14 mg] 14 mg TD Q24H 06/21/20 [History] Albuterol 2.5 mg/3 ml Neb [Proventil 2.5 mg/3 ml Neb] 1 ampul IH QID PRN 07/16/20 [History] Midodrine HCl 10 mg PO QID 09/30/20 [History] Hx Tetanus, Diphtheria Vaccination/Date Given: Yes Hx Influenza Vaccination/Date Given: Yes Hx Pneumococcal Vaccination/Date Given: Yes Travel Risk - Vaccine Status Have you recieved a Covid-19 vaccination: Yes Line Locator: Moderna - Vaccination Dates Date of 2cond Vaccination (if applicable): 12/04/20 - Past Medical History Pertinent Past Medical History: Yes Neurological History: Peripheral Neuropathy ENT History: No Pertinent History Cardiac History: Deep Vein Thrombosis, Hypertension Respiratory History: Asthma, CHF, COPD, Pneumonia, Pulmonary Embolism Endocrine Medical History: Diabetes Type II, Hypoglycemia, Hypothyroidism Musculoskeletal History: Fractures GI Medical History: GERD, Other History: Renal Disease Psycho-Social History: Anxiety, Depression Female Reproductive Disorders: Fibroids Other Medical History: Left Ankle FX with multiple surgeries, 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 HX ascites. DX fatty liver - Past Surgical History Past Surgical History: Yes Neuro Surgical History: No Pertinent History Cardiac: No Pertinent History Respiratory: No Pertinent History Gastrointestinal: Cholecystectomy, Exploratory Laparoscopy Genitourinary: No Pertinent History Musculoskeletal: Amputation Female Surgical History: Section, Hysterectomy Other Surgical History: foot surgery, screw placed in left big toe, removal, and HX antibiotic bead placement. mult lt foot surgeries. LT BKA February 2019. Dialysis M,W,F - Social History Smoking Status: Current every day smoker How long have you smoked: 36 years Exposure to second hand smoke: Yes Drug Use: none Patient Lives Alone: No Significant Family History: no pertinent family hx - Nursing Vital Signs Nursing Vital Signs: Initial Vital Signs Pulse Rate 99 H 01/24/21 19:15 Respiratory Rate 36 H 01/24/21 19:15 Blood Pressure 111/60 01/24/21 19:15 O2 Sat by Pulse Oximetry 95 01/24/21 19:15 Pain Scale Pain Intensity 0 - Course Nursing assessment & vital signs reviewed: Yes EKG Interpreted by Me: RATE ([id number]), Sinus Rhythm, NORMAL AXIS, NORMAL INTERVALS, NORMAL QRS, NORMAL ST-T, Other (There are no acute ischemic changes on today's EKG. The tachycardia that was present on 12/29/2020 has now resolved.) Ordered Tests: Active Orders 24 hr Category Date Time Status EKG-ER Only STAT Care 01/24/21 19:25 Active IV Insertion STAT Care 01/24/21 19:25 Active Pulse Oximetry (ED) STAT Care 01/24/21 19:25 Active CHEST 1 VIEW (PORTABLE) Stat Exams 01/24/21 19:24 Taken ARTERIAL BLOOD GASES Stat Lab 01/24/21 19:35 Completed BLOOD CULTURE Stat Lab 01/24/21 20:10 Received CBC W DIFF Stat Lab 01/24/21 19:30 Completed CMP Stat Lab 01/24/21 19:30 Completed Lactic Acid Stat Lab 01/24/21 19:35 Completed MAGNESIUM Stat Lab 01/24/21 19:30 Completed NT PRO BNP Stat Lab 01/24/21 19:30 Completed TROPONIN Q3H Lab 01/24/21 19:30 Completed TROPONIN Q3H Lab 01/24/21 22:30 Ordered TROPONIN Q3H Lab 01/25/21 01:30 Ordered TROPONIN Q3H Lab 01/25/21 04:30 Ordered TROPONIN Q3H Lab 01/25/21 07:30 Ordered Medication Summary Discontinued Medications Generic Name Dose Route Start Last Admin Trade Name Freq PRN Reason Stop Dose Admin Methylprednisolone Sodium Succinate 125 mg 01/24/21 19:25 01/24/21 20:23 Solu-Medrol 125 Mg IV 01/24/21 19:26 125 mg STAT ONE Administration Methylprednisolone Sodium Succinate Confirm 01/24/21 20:20 Solu-Medrol 125 Mg Administered 01/24/21 20:21 Dose 125 mg .ROUTE .STK-MED ONE Lab/Rad Data: Laboratory Result Diagrams 01/24/21 19:30 01/24/21 19:30 Laboratory Results 01/24/21 01/24/21 01/24/21 Range/Units 19:35 19:30 19:30 WBC (4.0-10.5) K/mm3 RBC (4.1-5.4) M/mm3 Hgb (12.0-16.0) gm/dl Hct (35-47) % MCV (78-100) fl MCH (26-32) pg MCHC (32-36) g/dl RDW (11.5-14.0) % Plt Count (150-450) K/mm3 MPV (7.5-11.0) fl Gran % (36.0-66.0) % Eos # (Auto) (0-0.5) Absolute Lymphs (auto) (1.0-4.6) Absolute Monos (auto) (0.0-1.3) Lymphocytes % (24.0-44.0) % Monocytes % (0.0-12.0) % Eosinophils % (0.00-5.0) % Basophils % (0.0-0.4) % Absolute Granulocytes (1.4-6.9) Basophils # (0-0.4) Puncture Site LEFT BRACHIAL pCO2 35 (35-45) mmHg pO2 70 L (75-100) mmHg Base Excess 4.9 H (-2.0-2.0) O2 Saturation 91.1 L (94-100) g/dF ABG pH 7.51 H (7.35-7.45) ABG HCO3 27.9 (22-28) ABG O2 Sat (Measured) 95.8 (95-100) % Des Test NOT APPLICABLE A-a Gradient 36 a/A Ratio 0.66 Hemoglobin 11.4 Carboxyhemoglobin 3.9 (0.0-6.9) % THgb Methemoglobin 1.0 L (1.4-1.5) % Temperature 37.0 C POC O2 Flow Rate 21 % Sodium 119 L* (137-145) mmol/L Potassium 4.7 5.1 (3.5-5.1) mmol/L Chloride 86 L (98-107) mmol/L Carbon Dioxide 26 (22-30) mmol/L Anion Gap 11.7 (5-15) MEQ/L BUN 37 H (7-17) mg/dL Creatinine 1.46 H (0.52-1.04) mg/dL Estimated GFR 39.8 ML/MIN Glucose 290 H (74-106) mg/dL Lactic Acid 1.8 (0.4-2.0) Calcium 7.7 L (8.4-10.2) mg/dL Magnesium 1.6 (1.6-2.3) mg/dL Total Bilirubin 0.70 (0.2-1.3) mg/dL AST 49 H (14-36) U/L ALT 14 (0-35) U/L Alkaline Phosphatase 206 H (38-126) U/L Troponin I < 0.012 (0.000-0.034) ng/mL NT-Pro-B Natriuret Pep 823 (0-900) pg/mL Serum Total Protein 6.0 L (6.3-8.2) g/dL Albumin 2.7 L (3.5-5.0) g/dL 01/24/21 Range/Units 19:30 WBC 15.5 H (4.0-10.5) K/mm3 RBC 4.14 (4.1-5.4) M/mm3 Hgb 11.5 L (12.0-16.0) gm/dl Hct 35.0 (35-47) % MCV 84.5 (78-100) fl MCH 27.8 (26-32) pg MCHC 32.9 (32-36) g/dl RDW 15.8 H (11.5-14.0) % Plt Count 135 L (150-450) K/mm3 MPV 10.6 (7.5-11.0) fl Gran % 82.2 H (36.0-66.0) % Eos # (Auto) 0.22 (0-0.5) Absolute Lymphs (auto) 1.53 (1.0-4.6) Absolute Monos (auto) 0.98 (0.0-1.3) Lymphocytes % 9.9 L (24.0-44.0) % Monocytes % 6.3 (0.0-12.0) % Eosinophils % 1.4 (0.00-5.0) % Basophils % 0.2 (0.0-0.4) % Absolute Granulocytes 12.73 H (1.4-6.9) Basophils # 0.03 (0-0.4) Puncture Site pCO2 (35-45) mmHg pO2 (75-100) mmHg Base Excess (-2.0-2.0) O2 Saturation (94-100) g/dF ABG pH (7.35-7.45) ABG HCO3 (22-28) ABG O2 Sat (Measured) (95-100) % Des Test A-a Gradient a/A Ratio Hemoglobin Carboxyhemoglobin (0.0-6.9) % THgb Methemoglobin (1.4-1.5) % Temperature C POC O2 Flow Rate % Sodium (137-145) mmol/L Potassium (3.5-5.1) mmol/L Chloride (98-107) mmol/L Carbon Dioxide (22-30) mmol/L Anion Gap (5-15) MEQ/L BUN (7-17) mg/dL Creatinine (0.52-1.04) mg/dL Estimated GFR ML/MIN Glucose (74-106) mg/dL Lactic Acid (0.4-2.0) Calcium (8.4-10.2) mg/dL Magnesium (1.6-2.3) mg/dL Total Bilirubin (0.2-1.3) mg/dL AST (14-36) U/L ALT (0-35) U/L Alkaline Phosphatase (38-126) U/L Troponin I (0.000-0.034) ng/mL NT-Pro-B Natriuret Pep (0-900) pg/mL Serum Total Protein (6.3-8.2) g/dL Albumin (3.5-5.0) g/dL - Progress Progress: improved, re-examined Air Movement: good Progress Note: 01/24/21 20:34 Chest x-ray shows right basilar fluid versus early infiltrate. There is significant improvement of this site when compared to chest x-rays dated 12/29/2020 and 12/18/2020 01/24/21 21:50 Medical decision making: This patient has chronic kidney disease and has dialysis scheduled Monday. She has chronic hyponatremia as well. Patient wears 2 L oxygen nasal cannula ordinarily but has not been we aring it today. When we placed 2 L nasal cannula on her, her oxygen level went to 99 to this 100%. Patient states that she is breathing better now. Her heart rate is in the 80s and its normal sinus rhythm. Her respiratory rate is 18-20. She has no chest pain. Her white count on 01/14/2021 was 16.2 and today is 15.5. Her chest x-ray has also improved from prior to chest x-rays. I had respira tory therapy evaluate this patient and they feel that the patient has fluid in the lungs. Her BNP is normal as is her troponin level. I believe the patient is in need of her dialysis. She is stable for discharge to home and desires to go home. 01/24/21 21:53 Blood Culture(s) Obtained: Yes Antibiotics given: Yes Counseled pt/family regarding: lab results, diagnosis, need for follow-up, rad results - Departure Departure Disposition: Home Clinical Impression: Chronic renal failure, Fluid overload Condition: Stable Referrals: SARAH AMIN DO [Primary Care Provider] - Additional Instructions: Take all your medications as prescribed. Make sure that you go to your dialysis session tomorrow morning. Follow-up with your water conservationist and shift mgr for further management.
[2021-01-24 19:41] LABS: A-aADO2 36; ABG HEMOGLOBIN 11.4; ABG POTASSIUM 4.7 (3.5-5.1); ABG SITE LEFT BRACHIAL; ARTERIAL BLD GAS O2 SATURATION 95.8 % (95-100); ARTERIAL BLOOD GAS BASE EXCESS 4.9 (-2.0-2.0); ARTERIAL BLOOD GAS FIO2 21 %; ARTERIAL BLOOD GAS PCO2 35 mmHg (35-45); ARTERIAL BLOOD GAS PO2 70 mmHg (75-100); ARTERIAL BLOOD GAS pH 7.51 (7.35-7.45); CARBOXYHEMOGLOBIN 3.9 % THgb (0.0-6.9); HCO3- 27.9 (22-28); HGB O2 SAT 91.1 g/dF (94-100); Lactic Acid 1.8 (0.4-2.0)
[2021-01-24 20:18] LABS: Absolute Neutrophil Ct (ANC) 12.73 (1.4-6.9); BASOPHIL % 0.2 % (0.0-0.4); Basophil (Absolute #) 0.03 (0-0.4); Eosinophil % 1.4 % (0.00-5.0); Eosinophil (Absolute #) 0.22 (0-0.5); Hemoglobin 11.5 gm/dl (12.0-16.0); Lymphocyte (Absolute #) 1.53 (1.0-4.6); Lymphocytes % 9.9 % (24.0-44.0); Mean Cell Volume 84.5 fl (78-100); Mean Corpuscular Hemoglobin 27.8 pg (26-32); Mean Corpuscular Hgb Concent. 32.9 g/dl (32-36); Mean Platelet Volume 10.6 fl (7.5-11.0); Monocyte (Absolute #) 0.98 (0.0-1.3); Monocytes % 6.3 % (0.0-12.0); Neutrophil % 82.2 % (36.0-66.0); Platelet Count 135 K/mm3 (150-450); Red Blood Count 4.14 M/mm3 (4.1-5.4); Red Cell Distribution Width 15.8 % (11.5-14.0); White Blood Count 15.5 K/mm3 (4.0-10.5)
[2021-01-24] MEDS ORDERED: solu-MEDROL 125 MG ONE (20:20)
[2021-01-24] MEDS: solu-MEDROL 125 MG IV ONE (20:23)
[2021-01-24 20:38] LABS: ALBUMIN 2.7 g/dL (3.5-5.0); ANION GAP 11.7 MEQ/L (5-15); BILIRUBIN,TOTAL 0.7 mg/dL (0.2-1.3); Calcium 7.7 mg/dL (8.4-10.2); Creatinine 1 1.46 mg/dL (0.52-1.04); EST GLOMERULAR FILTRATION RATE 39.8 ML/MIN; MAGNESIUM 1.6 mg/dL (1.6-2.3); Potassium 5.1 mmol/L (3.5-5.1)
[2021-01-24 22:01] VITALS: BP 106/62; PULSE 89; O2SAT 99
--- NOTE | 2021-01-25 08:41 | XRAY ---
Indication: Short of breath. Comparison: December 29, 2020. Portable chest again demonstrates chronic diffuse bilateral interstitial opacities with right base infiltrate/atelectasis. Heart not enlarged with stable right double-lumen dialysis catheter. No new cardiopulmonary abnormalities.
== END 2021-01-24 22:04 | disposition home or self-care (01) ==
LOC: ED 19:13
DX: I12.9 Hypertensive chronic kidney disease with stage 1 through stage 4 chronic kidney disease, or unspecified chronic kidney disease (principal); E87.70 Fluid overload, unspecified; G62.9 Polyneuropathy, unspecified; Z86.718 Personal history of other venous thrombosis and embolism; I50.9 Heart failure, unspecified; J44.9 Chronic obstructive pulmonary disease, unspecified; Z86.711 Personal history of pulmonary embolism; E11.649 Type 2 diabetes mellitus with hypoglycemia without coma; E03.9 Hypothyroidism, unspecified
CPT/HCPCS: 36000; 36415; 36600; 71045; 80053; 82375; 82803; 83605; 83735; 83880; 84484; 85025; 87040; 93005; 94760; 96374; 99284; J2930

== ENCOUNTER 2021-03-30 12:45 | Emergency (ER) | payer MEDICARE ==
[2021-03-30 14:36] LABS: Absolute Neutrophil Ct (ANC) 5.62 (1.4-6.9); BASOPHIL % 0.4 % (0.0-0.4); Basophil (Absolute #) 0.03 (0-0.4); Eosinophil % 3.5 % (0.00-5.0); Eosinophil (Absolute #) 0.28 (0-0.5); Hematocrit 32.2 % (35-47); Hemoglobin 10.5 gm/dl (12.0-16.0); Lymphocyte (Absolute #) 1.49 (1.0-4.6); Lymphocytes % 18.5 % (24.0-44.0); Mean Cell Volume 86.1 fl (78-100); Mean Corpuscular Hemoglobin 28.1 pg (26-32); Mean Corpuscular Hgb Concent. 32.6 g/dl (32-36); Mean Platelet Volume 9.5 fl (7.5-11.0); Monocyte (Absolute #) 0.65 (0.0-1.3); Monocytes % 8.1 % (0.0-12.0); Neutrophil % 69.5 % (36.0-66.0); Platelet Count 196 K/mm3 (150-450); Red Blood Count 3.74 M/mm3 (4.1-5.4); Red Cell Distribution Width 15.8 % (11.5-14.0); White Blood Count 8.1 K/mm3 (4.0-10.5)
[2021-03-30 14:47] LABS: ALBUMIN 2.6 g/dL (3.5-5.0); ANION GAP 11.5 MEQ/L (5-15); BILIRUBIN,TOTAL 0.3 mg/dL (0.2-1.3); Calcium 7.9 mg/dL (8.4-10.2); Creatinine 1 1.96 mg/dL (0.52-1.04); EST GLOMERULAR FILTRATION RATE 28.4 ML/MIN; Potassium 3.5 mmol/L (3.5-5.1)
--- NOTE | 2021-03-30 16:29 | XRAY ---
Indication: Lung crackles on physical exam. Comparison: January 24, 2021. Portable chest unchanged again demonstrating chronic diffuse interstitial alveolar opacities with right base infiltrate/atelectasis. Heart not enlarged again with right double-lumen dialysis catheter. Bony thorax intact. No new cardiopulmonary abnormalities.
--- NOTE | 2021-03-30 16:33 | XRAY ---
Indication: Stomach pain. Chronic ascites. Multiple contiguous axial images obtained through the abdomen and pelvis without contrast. Comparison: January 14, 2021. Lung bases again demonstrates diffuse bilateral interstitial liver opacities without effusion. Heart not enlarged again with partially visualized dialysis catheter tip at the aortocaval junction. Noncontrasted stomach and bowel loops remain nonobstructed. Urinary bladder is now markedly distended concerning for outlet obstruction versus neurogenic bladder. Stable cirrhotic liver, splenomegaly, splenorenal varices, large abdomen/pelvic ascites, cholecystitis, and hysterectomy. No free air. Remaining pancreas, adrenal glands, kidneys, and ureters are unremarkable for noncontrast exam. Stable mild scattered aortoiliac calcifications without AAA. Osseous structures intact again with minimal degenerative changes throughout the spine. There remains mild diffuse anasarca. Impression: 1. New markedly distended urinary bladder. Rule out outlet obstruction versus neurogenic bladder. 2. Again chronic findings including bibasilar interstitial opacities, cirrhosis, splenomegaly, splenorenal varices, and large ascites.
--- NOTE | 2021-03-30 16:45 | ERPHSYRPT ---
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 Triage Nursing Assessment: to er with noted abd distention, audible coarse wheezing, pale/w/d resp easy and nonlabored a @ox3 Physician History: Patient is a 55-year-old female with history of end-stage renal disease on dialysis presents to our ED with nausea vomiting abdominal pain. Patient also f eels short of breath. Vomiting started 4 days ago. Vomiting has been intermittent. Patient last had hemodialysis yesterday. Patient states she has a history of cirrhosis. She also receives paracentesis. Last paracentesis was performed 2 weeks ago. No fevers. No trauma. Symptoms are mild to moderate in intensity. No specific worsening improving factors. Patient voices no other complaints or concerns at this time. Timing/Duration: today Severity: mild Modifying Factors: Improves With: nothing Associated Symptoms: denies symptoms, No diaphoresis, No chills, No fever, No headaches, No weakness Allergies/Adverse Reactions: adhesive tape Allergy (Mild, Verified 01/24/21 19:15) Blisters redness clindamycin Adverse Reaction (Mild, Verified 01/24/21 19:15) Skin Irritation sunburn like redness and itching bee stings Allergy (Mild, Uncoded 01/24/21 19:15) Anaphylactic Reaction trouble breathing and swelling. Home Medications: Duloxetine HCl 30 mg [Cymbalta 30 MG Capsule] 30 mg PO BID 11/17/12 [History] Albuterol Sulfate [Proair Hfa] 2 puff IH Q4HPRN PRN 04/21/15 [History] Omeprazole 20 MG [Prilosec 20 mg] 20 mg PO DAILY 04/21/15 [History] Pravastatin Sodium [Pravachol] 10 mg PO HS 02/07/16 [History] Gabapentin [Gralise] 400 mg PO TID 11/11/16 [History] Docusate Sodium 100 mg [Colace 100 MG] 100 mg PO HSPRN PRN 01/18/19 [History] Ergocalciferol (Vitamin D2) [Vitamin D] 50,000 units PO CHEW 01/18/19 [History] Ferrous Sulfate 325 mg PO BID 01/18/19 [History] Hydroxyzine HCl 10 mg PO BID 01/18/19 [History] Levothyroxine Sodium 25 Mcg [Synthroid 25 Mcg] 25 mcg PO DAILY 01/18/19 [History] Insulin Glargine [Lantus Insulin] 20 units SQ BID 09/27/19 [History] Tiotropium [place] [Spiriva Respimat] 1 puff IH DAILY 10/14/19 [History] Insulin Lispro [Humalog Kwikpen U-100] 10 unit SQ TIDWMEALS 03/27/20 [History] Promethazine HCl 25 mg [Phenergan 25 mg] 25 mg PO Q6HPRN PRN 03/27/20 [History] Hydrocodone/Acetaminophen [Hydrocodone-Acetamin 10-325 mg^^^] 1 ea PO BID 06/01/20 [History] Nicotine 14 mg [Nicoderm Cq 14 mg] 14 mg TD Q24H 06/21/20 [History] Albuterol 2.5 mg/3 ml Neb [Proventil 2.5 mg/3 ml Neb] 1 ampul IH QID PRN 07/16/20 [History] Midodrine HCl 10 mg PO QID 09/30/20 [History] Aspirin EC 81 mg [Ecotrin 81 mg] 81 mg PO DAILY 03/30/21 [History] Hx Tetanus, Diphtheria Vaccination/Date Given: Yes Hx Influenza Vaccination/Date Given: Yes Hx Pneumococcal Vaccination/Date Given: Yes Travel Risk - International Travel Have you traveled outside of the country in past 3 weeks: No - Coronavirus Screening Are you exhibiting any of the following symptoms?: Yes Symptoms: Shortness of Breath, Vomiting/Diarrhea Close contact with a COVID-19 positive Pt in past 14-21 Days: No - Vaccine Status Have you recieved a Covid-19 vaccination: Yes 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 - Vaccination Dates Date of 2cond Vaccination (if applicable): 12/04/20 - Review of Systems Constitutional: No Symptoms, No Fever, No Chills Eyes: No Symptoms Ears, Nose, & Throat: No Symptoms Respiratory: No Symptoms, No Cough, No Dyspnea Cardiac: No Symptoms, No Chest Pain, No Edema, No Syncope Abdominal/Gastrointestinal: No Symptoms, No Abdominal Pain, No Nausea, No Vomiting, No Diarrhea Genitourinary Symptoms: No Symptoms, No Dysuria Musculoskeletal: No Symptoms, No Back Pain, No Neck Pain Skin: No Symptoms, No Rash Neurological: No Symptoms, No Dizziness, No Focal Weakness, No Sensory Changes Psychological: No Symptoms Endocrine: No Symptoms Hematologic/Lymphatic: No Symptoms Immunological/Allergic: No Symptoms All Other Systems: Reviewed and Negative - Past Medical History Pertinent Past Medical History: Yes Neurological History: Peripheral Neuropathy ENT History: No Pertinent History Cardiac History: Deep Vein Thrombosis, Hypertension Respiratory History: Asthma, CHF, COPD, Pneumonia, Pulmonary Embolism Endocrine Medical History: Diabetes Type II, Hypoglycemia, Hypothyroidism Musculoskeletal History: Fractures GI Medical History: GERD, Other History: Renal Disease Psycho-Social History: Anxiety, Depression Female Reproductive Disorders: Fibroids Other Medical History: Left Ankle FX with multiple surgeries, 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 HX ascites. DX fatty liver - Past Surgical History Past Surgical History: Yes Neuro Surgical History: No Pertinent History Cardiac: No Pertinent History Respiratory: No Pertinent History Gastrointestinal: Cholecystectomy, Exploratory Laparoscopy Genitourinary: No Pertinent History Musculoskeletal: Amputation Female Surgical History: Section, Hysterectomy Other Surgical History: foot surgery, screw placed in left big toe, removal, and HX antibiotic bead placement. mult lt foot surgeries. LT BKA February 2019. Dialysis M,W,F - Social History Smoking Status: Current every day smoker How long have you smoked: 36 years Exposure to second hand smoke: Yes Drug Use: none Patient Lives Alone: No Significant Family History: no pertinent family hx - Nursing Vital Signs Nursing Vital Signs: Initial Vital Signs Temperature 97.5 F 03/30/21 13:10 Pulse Rate 101 H 03/30/21 13:10 Respiratory Rate 18 03/30/21 13:10 Blood Pressure 138/62 03/30/21 13:10 O2 Sat by Pulse Oximetry 96 03/30/21 13:10 Pain Scale Pain Intensity 6 - Physical Exam General Appearance: no apparent distress, alert Eye Exam: PERRL/EOMI, eyes nml inspection Ears, Nose, Throat Exam: normal ENT inspection, TMs normal, pharynx normal, moist mucous membranes Neck Exam: normal inspection, non-tender, supple, full range of motion Respiratory Exam: normal breath sounds, lungs clear, No respiratory distress Cardiovascular Exam: regular rate/rhythm, normal heart sounds, normal peripheral pulses, other (Coarse breath sounds with crackles.) Gastrointestinal/Abdomen Exam: soft, normal bowel sounds, No tenderness, No mass Back Exam: normal inspection, normal range of motion, No CVA tenderness, No vertebral tenderness Extremity Exam: normal inspection, normal range of motion, pelvis stable, other (Left below-knee amputation.) Neurologic Exam: alert, 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, cooperative, normal mood/affect, sensation nml, No motor deficits Skin Exam: normal color, warm, dry, No rash Lymphatic Exam: No adenopathy SpO2 Interpretation: normal SpO2: 98 O2 Delivery: Room Air - Course Nursing assessment & vital signs reviewed: Yes EKG Interpreted by Me: RATE, Sinus Rhythm, NORMAL AXIS, NORMAL INTERVALS - Radiology Exams Chest X-ray Interpretation: Teleradiologist Report (Audible chest unchanged demonstrating chronic diffuse interstitial alveolar opacities with right base infiltrate versus atelectasis. Heart not enlarged again with right double-lumen dialysis catheter Bony thorax intact no new cardiopulmonary abnormalities) - CT Exams Abdomen/Pelvis CT Interpretation: Tele-radiologist Report (No markedly distended urinary bladder. Rule out outlet obstruction versus neurogenic bladder. Chronic findings including bibasilar interstitial patient these, cirrhosis, splenomegaly, splenorenal varices and large ascites.) Ordered Tests: Active Orders 24 hr Category Date Time Status EKG-ER Only STAT Care 03/30/21 14:00 Active [place] [Catheter-[place]] STAT Care 03/30/21 16:59 Active IV Insertion STAT Care 03/30/21 14:00 Active ABDOMEN AND PELVIS W/0 CONTRAS [CT] Stat Exams 03/30/21 14:00 Completed CHEST 1 VIEW (PORTABLE) Stat Exams 03/30/21 14:00 Completed BNP [NT PRO BNP] Stat Lab 03/30/21 14:15 Completed CBC W DIFF Stat Lab 03/30/21 14:15 Completed CMP Stat Lab 03/30/21 14:15 Completed CULTURE,URINE Stat Lab 03/30/21 16:59 Received LIPASE Stat Lab 03/30/21 14:15 Completed TROPONIN Q3H Lab 03/30/21 14:15 Completed TROPONIN Q3H Lab 03/30/21 18:00 Completed TROPONIN Q3H Lab 03/31/21 02:00 Ordered UA W/RFX UR CULTURE Stat Lab 03/30/21 16:59 Completed Medication Summary Generic Name Dose Route Start Last Admin Trade Name Allan PRN Reason Stop Dose Admin Vancomycin HCl 2 gm in 400 mls @ 133.333 mls/hr 03/30/21 19:16 03/30/21 19:33 Vancomycin 2 Gram/400 Ml Bag IV 03/30/21 22:15 133.3 ml/hr STAT ONE 133.3 mls/hr Administration Discontinued Medications Generic Name Dose Route Start Last Admin Trade Name Allan PRN Reason Stop Dose Admin Vancomycin HCl Confirm 03/30/21 19:30 Vancomycin 2 Gram/400 Ml Bag Administered 03/30/21 19:31 Dose 2 gm in 400 mls @ ud IV .STK-MED ONE Vancomycin HCl Confirm 03/30/21 19:32 Vancomycin 2 Gram/400 Ml Bag Administered 03/30/21 19:33 Dose 2 gm in 400 mls @ ud IV .STK-MED ONE Morphine Sulfate 2 mg 03/30/21 20:07 03/30/21 20:26 Morphine Sulfate 2 Mg Inj IV 03/30/21 20:08 2 mg STAT ONE Administration Morphine Sulfate Confirm 03/30/21 20:09 Morphine Sulfate 2 Mg Inj Administered 03/30/21 20:10 Dose 2 mg .ROUTE .STK-MED ONE Ondansetron HCl 4 mg 03/30/21 20:07 03/30/21 20:26 Zofran 4 Mg/2 Ml Vial IV 03/30/21 20:08 4 mg STAT ONE Administration Ondansetron HCl Confirm 03/30/21 20:09 Zofran 4 Mg/2 Ml Vial Administered 03/30/21 20:10 Dose 4 mg .ROUTE .STK-MED ONE Lab/Rad Data: Laboratory Result Diagrams 03/30/21 14:15 03/30/21 14:15 Laboratory Results 03/30/21 03/30/21 03/30/21 Range/Units 18:00 16:59 14:15 WBC (4.0-10.5) K/mm3 RBC (4.1-5.4) M/mm3 Hgb (12.0-16.0) gm/dl Hct (35-47) % MCV (78-100) fl MCH (26-32) pg MCHC (32-36) g/dl RDW (11.5-14.0) % Plt Count (150-450) K/mm3 MPV (7.5-11.0) fl Gran % (36.0-66.0) % Eos # (Auto) (0-0.5) Absolute Lymphs (auto) (1.0-4.6) Absolute Monos (auto) (0.0-1.3) Lymphocytes % (24.0-44.0) % Monocytes % (0.0-12.0) % Eosinophils % (0.00-5.0) % Basophils % (0.0-0.4) % Absolute Granulocytes (1.4-6.9) Basophils # (0-0.4) Sodium (137-145) mmol/L Potassium (3.5-5.1) mmol/L Chloride (98-107) mmol/L Carbon Dioxide (22-30) mmol/L Anion Gap (5-15) MEQ/L BUN (7-17) mg/dL Creatinine (0.52-1.04) mg/dL Estimated GFR ML/MIN Glucose (74-106) mg/dL Calcium (8.4-10.2) mg/dL Total Bilirubin (0.2-1.3) mg/dL AST (14-36) U/L ALT (0-35) U/L Alkaline Phosphatase (38-126) U/L Troponin I < 0.012 (0.000-0.034) ng/mL NT-Pro-B Natriuret Pep 1780 H (0-900) pg/mL Serum Total Protein (6.3-8.2) g/dL Albumin (3.5-5.0) g/dL Lipase (23-300) U/L Urine Color JOJO (YELLOW) Urine Appearance SLIGHTLY CLOUDY (CLEAR) Urine pH 5.0 (5-6) Ur Specific [place] 1.016 (1.005-1.025) Urine Protein 100 (Negative) Urine Ketones NEGATIVE (NEGATIVE) Urine Blood SMALL (0-5) Ubaldo/ul Urine Nitrite NEGATIVE (NEGATIVE) Urine Bilirubin NEGATIVE (NEGATIVE) Urine Urobilinogen NEGATIVE (0-1) mg/dL Ur Leukocyte Esterase MODERATE (NEGATIVE) Urine WBC (Auto) >100 (0-5) /HPF Urine RBC (Auto) 3-5 (0-2) /HPF U Epithel Cells (Auto) NONE (FEW) /HPF Urine Bacteria (Auto) RARE (NEGATIVE) /HPF Urine Mucus (Auto) SLIGHT (NEGATIVE) /HPF Urine Yeast (Budding) Rare (NEGATIVE) /HPF Urine Culture Reflexed YES (NO) Urine Glucose NEGATIVE (NEGATIVE) mg/dL 03/30/21 03/30/21 03/30/21 Range/Units 14:15 14:15 14:15 WBC 8.1 (4.0-10.5) K/mm3 RBC 3.74 L (4.1-5.4) M/mm3 Hgb 10.5 L (12.0-16.0) gm/dl Hct 32.2 L (35-47) % MCV 86.1 (78-100) fl MCH 28.1 (26-32) pg MCHC 32.6 (32-36) g/dl RDW 15.8 H (11.5-14.0) % Plt Count 196 (150-450) K/mm3 MPV 9.5 (7.5-11.0) fl Gran % 69.5 H (36.0-66.0) % Eos # (Auto) 0.28 (0-0.5) Absolute Lymphs (auto) 1.49 (1.0-4.6) Absolute Monos (auto) 0.65 (0.0-1.3) Lymphocytes % 18.5 L (24.0-44.0) % Monocytes % 8.1 (0.0-12.0) % Eosinophils % 3.5 (0.00-5.0) % Basophils % 0.4 (0.0-0.4) % Absolute Granulocytes 5.62 (1.4-6.9) Basophils # 0.03 (0-0.4) Sodium 123 L (137-145) mmol/L Potassium 3.5 (3.5-5.1) mmol/L Chloride 85 L (98-107) mmol/L Carbon Dioxide 29 (22-30) mmol/L Anion Gap 11.5 (5-15) MEQ/L BUN 11 (7-17) mg/dL Creatinine 1.96 H (0.52-1.04) mg/dL Estimated GFR 28.4 ML/MIN Glucose 173 H (74-106) mg/dL Calcium 7.9 L (8.4-10.2) mg/dL Total Bilirubin 0.30 (0.2-1.3) mg/dL AST 24 (14-36) U/L ALT 10 (0-35) U/L Alkaline Phosphatase 158 H (38-126) U/L Troponin I < 0.012 (0.000-0.034) ng/mL NT-Pro-B Natriuret Pep (0-900) pg/mL Serum Total Protein 6.0 L (6.3-8.2) g/dL Albumin 2.6 L (3.5-5.0) g/dL Lipase 25 (23-300) U/L Urine Color (YELLOW) Urine Appearance (CLEAR) Urine pH (5-6) Ur Specific [place] (1.005-1.025) Urine Protein (Negative) Urine Ketones (NEGATIVE) Urine Blood (0-5) Ubaldo/ul Urine Nitrite (NEGATIVE) Urine Bilirubin (NEGATIVE) Urine Urobilinogen (0-1) mg/dL Ur Leukocyte Esterase (NEGATIVE) Urine WBC (Auto) (0-5) /HPF Urine RBC (Auto) (0-2) /HPF U Epithel Cells (Auto) (FEW) /HPF Urine Bacteria (Auto) (NEGATIVE) /HPF Urine Mucus (Auto) (NEGATIVE) /HPF Urine Yeast (Budding) (NEGATIVE) /HPF Urine Culture Reflexed (NO) Urine Glucose (NEGATIVE) mg/dL - Progress Progress: improved Progress Note: 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 Patient will be transferred to [facility]. He requested a 1 g dose of vancomycin for UTI. Plan of care discussed with patient. She agrees to transfer to [facility] for further evaluation and treatment. 03/30/21 19:17 03/30/21 20:48 Counseled pt/family regarding: lab results, diagnosis, rad results - Departure Departure Disposition: Transfer Clinical Impression: Ascites, Anasarca, Urinary bladder distention, Hyponatremia, Hypocalcemia, UTI (urinary tract infection) Condition: Stable Critical Care Time: No Referrals: SARAH MAIN DO [Primary Care Provider] -
[2021-03-30 18:31] LABS: Appearance SLIGHTLY CLOUDY (CLEAR); Bacteria RARE /HPF (NEGATIVE); Bilirubin NEGATIVE (NEGATIVE); Blood SMALL Ery/ul (0-5); Glucose NEGATIVE (NEGATIVE); Ketones NEGATIVE (NEGATIVE); Leukocyte Esterase MODERATE (NEGATIVE); Mucus SLIGHT /HPF (NEGATIVE); Nitrite NEGATIVE (NEGATIVE); Protein,Urine Dip 100 (Negative); Specific Gravity 1.016 (1.005-1.025); Urobilinogen NEGATIVE mg/dL (0-1); WBC >100 /HPF (0-5)
[2021-03-30 18:33] LABS: Budding Yeast Rare /HPF (NEGATIVE)
[2021-03-30] MEDS ORDERED: VANCOMYCIN 2 GRAM/400 ML BAG 2 GM/400 ML PIGGYBACK IV ONE ×2 (19:16→19:32)
[2021-03-30] MEDS ORDERED: VANCOMYCIN IV ONE (19:30)
[2021-03-30] MEDS ORDERED: PIGGYBACK IV ONE (19:30)
[2021-03-30 20:06] VITALS: BP 125/72; PULSE 90
[2021-03-30] MEDS ORDERED: Zofran 4 MG/2 ML VIAL IV ONE (20:07)
[2021-03-30] MEDS ORDERED: MORPHINE SULFATE 2 MG INJ IV ONE (20:07)
[2021-03-30] MEDS ORDERED: Zofran 4 MG/2 ML VIAL ONE (20:09)
[2021-03-30] MEDS ORDERED: MORPHINE SULFATE 2 MG INJ ONE (20:09)
[2021-03-30 20:48] VITALS: O2SAT 98
== END 2021-03-30 20:59 | disposition short-term general hospital (02) ==
LOC: ED 12:45
DX: R18.8 Other ascites (principal); N32.89 Other specified disorders of bladder; E87.1 Hypo-osmolality and hyponatremia; E83.51 Hypocalcemia; N39.0 Urinary tract infection, site not specified
CPT/HCPCS: 36000; 36415; 51702; 71045; 74176; 80053; 81001; 83690; 83880; 84484; 85025; 87086; 93005; 96365; 96374; 96375; 99285; J2270; J2405; J3370

== ENCOUNTER 2021-04-11 14:53 | Observation (INO) | payer MEDICARE ==
--- NOTE | 2021-04-11 15:24 | ERPHSYRPT ---
- History of Present Illness Patient Subjective Stated Complaint: Patient states she has been short of breath x1 week. States it became worse this morning. Triage Nursing Assessment: Patient to ED with shortness of breath. Expiratory wheezes present. Skin color pale, yellow. 3L O2 applied per vs of 88% on room air. Allergies/Adverse Reactions: adhesive tape Allergy (Mild, Verified 04/07/21 14:46) Blisters redness clindamycin Adverse Reaction (Mild, Verified 04/07/21 14:46) Skin Irritation sunburn like redness and itching bee stings Allergy (Mild, Uncoded 01/24/21 19:15) Anaphylactic Reaction trouble breathing and swelling. Home Medications: Duloxetine HCl 30 mg [Cymbalta 30 MG Capsule] 30 mg PO BID 11/17/12 [History] Albuterol Sulfate [Proair Hfa] 2 puff IH Q4HPRN PRN 04/21/15 [History] Omeprazole 20 MG [Prilosec 20 mg] 20 mg PO DAILY 04/21/15 [History] Pravastatin Sodium [Pravachol] 10 mg PO HS 02/07/16 [History] Gabapentin [Gralise] 400 mg PO TID 11/11/16 [History] Docusate Sodium 100 mg [Colace 100 MG] 100 mg PO HSPRN PRN 01/18/19 [History] Ergocalciferol (Vitamin D2) [Vitamin D] 50,000 units PO CHEW 01/18/19 [History] Ferrous Sulfate 325 mg PO BID 01/18/19 [History] Hydroxyzine HCl 10 mg PO BID 01/18/19 [History] Levothyroxine Sodium 25 Mcg [Synthroid 25 Mcg] 25 mcg PO DAILY 01/18/19 [History] Insulin Glargine [Lantus Insulin] 20 units SQ BID 09/27/19 [History] Tiotropium [place] [Spiriva Respimat] 1 puff IH DAILY 10/14/19 [History] Insulin Lispro [Humalog Kwikpen U-100] 10 unit SQ TIDWMEALS 03/27/20 [History] Promethazine HCl 25 mg [Phenergan 25 mg] 25 mg PO Q6HPRN PRN 03/27/20 [History] Hydrocodone/Acetaminophen [Hydrocodone-Acetamin 10-325 mg^^^] 1 ea PO BID 06/01/20 [History] Nicotine 14 mg [Nicoderm Cq 14 mg] 14 mg TD Q24H 06/21/20 [History] Albuterol 2.5 mg/3 ml Neb [Proventil 2.5 mg/3 ml Neb] 1 ampul IH QID PRN 07/16/20 [History] Midodrine HCl 10 mg PO QID 09/30/20 [History] Aspirin EC 81 mg [Ecotrin 81 mg] 81 mg PO DAILY 03/30/21 [History] Hx Tetanus, Diphtheria Vaccination/Date Given: Yes Hx Influenza Vaccination/Date Given: Yes Hx Pneumococcal Vaccination/Date Given: Yes Immunizations Up to Date: Yes Travel Risk - International Travel Have you traveled outside of the country in past 3 weeks: No - Coronavirus Screening Symptoms: Shortness of Breath - Vaccine Status Have you recieved a Covid-19 vaccination: Yes 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 - Vaccination Dates Date of 2cond Vaccination (if applicable): 12/04/20 - Past Medical History Pertinent Past Medical History: Yes Neurological History: Peripheral Neuropathy ENT History: No Pertinent History Cardiac History: Deep Vein Thrombosis, Hypertension Respiratory History: Asthma, CHF, COPD, Pneumonia, Pulmonary Embolism Endocrine Medical History: Diabetes Type II, Hypoglycemia, Hypothyroidism Musculoskeletal History: Fractures GI Medical History: GERD, Other History: Renal Disease Psycho-Social History: Anxiety, Depression Female Reproductive Disorders: Fibroids Other Medical History: Left Ankle FX with multiple surgeries, 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 HX ascites. DX fatty liver - Past Surgical History Past Surgical History: Yes Neuro Surgical History: No Pertinent History Cardiac: No Pertinent History Respiratory: No Pertinent History Gastrointestinal: Cholecystectomy, Exploratory Laparoscopy Genitourinary: No Pertinent History Musculoskeletal: Amputation Female Surgical History: Section, Hysterectomy Other Surgical History: foot surgery, screw placed in left big toe, removal, and HX antibiotic bead placement. mult lt foot surgeries. LT BKA February 2019. Dialysis M,W,F, UTI infusions currently - Social History Smoking Status: Current every day smoker How long have you smoked: 36 years Exposure to second hand smoke: Yes Drug Use: none Patient Lives Alone: No Significant Family History: no pertinent family hx - Female History Hx Now: No - Nursing Vital Signs Nursing Vital Signs: Initial Vital Signs Temperature 97.9 F 04/11/21 14:54 Pulse Rate 102 H 04/11/21 14:54 Respiratory Rate 18 04/11/21 14:54 Blood Pressure 194/97 04/11/21 14:54 O2 Sat by Pulse Oximetry 89 L 04/11/21 14:54 Pain Scale Pain Intensity 8 - Departure Referrals: SARAH AMIN DO [Primary Care Provider] -
--- NOTE | 2021-04-11 16:12 | ERPHSYRPT ---
- History of Present Illness Time Seen by Provider: 04/11/21 15:08 Source: patient Exam Limitations: no limitations Patient Subjective Stated Complaint: Patient states she has been short of breath x1 week. States it became worse this morning. Triage Nursing Assessment: Patient to ED with shortness of breath. Expiratory wheezes present. Skin color pale, yellow. 3L O2 applied per vs of 88% on room air. Physician History: 55 years old female with multiple medical problems including diabetes mellitus, end-stage renal disease on dialysis 3 times a week, hypertension, hyperlipidemia, COPD, tobacco abuse, below knee amputation presented in the ER with almost 1 week history of increasing shortness of breath initially with activity and now even at resting. Patient reports she feels tightness in the chest and despite using 2 L oxygen she is short of breath. On presentation she is maintaining oxygen saturation around 89% on 2 L, increased to 3 L and currently around 97%. Reports minimal productive cough which is not worse than usual. Also complaining of bilateral lower extremity swelling and some abdominal distention. Does have history of paracentesis in the past. No fever. Did receive Covid vaccine. She has UTI and receiving IV antibiotics outpatient but has not received for 2 days as she did not have a ride. Timing/Duration: week(s) (1), intermittent, gradual onset, worse Activities at Onset: rest Severity of Dyspnea-Max: moderate Severity of Dyspnea-Current: moderate Possible Cause: occasional episodes Modifying Factors: Improves With: oxygen. Worsens With: activity, coughing, exertion Associated Symptoms: cough, chest pain/discomfort, edema, leg swelling, productive cough, tightness, No fever Allergies/Adverse Reactions: adhesive tape Allergy (Mild, Verified 04/07/21 14:46) Blisters redness clindamycin Adverse Reaction (Mild, Verified 04/07/21 14:46) Skin Irritation sunburn like redness and itching bee stings Allergy (Mild, Uncoded 01/24/21 19:15) Anaphylactic Reaction trouble breathing and swelling. Home Medications: Duloxetine HCl 30 mg [Cymbalta 30 MG Capsule] 30 mg PO BID 11/17/12 [History] Albuterol Sulfate [Proair Hfa] 2 puff IH Q4HPRN PRN 04/21/15 [History] Omeprazole 20 MG [Prilosec 20 mg] 20 mg PO DAILY 04/21/15 [History] Pravastatin Sodium [Pravachol] 10 mg PO HS 02/07/16 [History] Gabapentin [Gralise] 400 mg PO TID 11/11/16 [History] Docusate Sodium 100 mg [Colace 100 MG] 100 mg PO HSPRN PRN 01/18/19 [History] Ergocalciferol (Vitamin D2) [Vitamin D] 50,000 units PO CHEW 01/18/19 [History] Ferrous Sulfate 325 mg PO BID 01/18/19 [History] Hydroxyzine HCl 10 mg PO BID 01/18/19 [History] Levothyroxine Sodium 25 Mcg [Synthroid 25 Mcg] 25 mcg PO DAILY 01/18/19 [History] Insulin Glargine [Lantus Insulin] 20 units SQ BID 09/27/19 [History] Tiotropium [place] [Spiriva Respimat] 1 puff IH DAILY 10/14/19 [History] Insulin Lispro [Humalog Kwikpen U-100] 10 unit SQ TIDWMEALS 03/27/20 [History] Promethazine HCl 25 mg [Phenergan 25 mg] 25 mg PO Q6HPRN PRN 03/27/20 [History] Hydrocodone/Acetaminophen [Hydrocodone-Acetamin 10-325 mg^^^] 1 ea PO BID 06/01/20 [History] Nicotine 14 mg [Nicoderm Cq 14 mg] 14 mg TD Q24H 06/21/20 [History] Albuterol 2.5 mg/3 ml Neb [Proventil 2.5 mg/3 ml Neb] 1 ampul IH QID PRN 07/16/20 [History] Midodrine HCl 10 mg PO QID 09/30/20 [History] Aspirin EC 81 mg [Ecotrin 81 mg] 81 mg PO DAILY 03/30/21 [History] Hx Tetanus, Diphtheria Vaccination/Date Given: Yes Hx Influenza Vaccination/Date Given: Yes Hx Pneumococcal Vaccination/Date Given: Yes Immunizations Up to Date: Yes Travel Risk - International Travel Have you traveled outside of the country in past 3 weeks: No - Coronavirus Screening Symptoms: Shortness of Breath - Vaccine Status Have you recieved a Covid-19 vaccination: Yes [employer] 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 - Vaccination Dates Date of 2cond Vaccination (if applicable): 12/04/20 - Review of Systems Constitutional: Fatigue, Weakness Eyes: No Symptoms Ears, Nose, & Throat: No Symptoms Respiratory: Cough, Dyspnea, Dyspnea on Exertion ([place]), Wheezing Cardiac: Chest Pain Abdominal/Gastrointestinal: No Symptoms Genitourinary Symptoms: No Symptoms Musculoskeletal: Myalgias Skin: No Symptoms Neurological: No Symptoms Psychological: Anxiety Endocrine: No Symptoms Hematologic/Lymphatic: No Symptoms Immunological/Allergic: No Symptoms - Past Medical History Pertinent Past Medical History: Yes Neurological History: Peripheral Neuropathy ENT History: No Pertinent History Cardiac History: Deep Vein Thrombosis, Hypertension Respiratory History: Asthma, CHF, COPD, Pneumonia, Pulmonary Embolism Endocrine Medical History: Diabetes Type II, Hypoglycemia, Hypothyroidism Musculoskeletal History: Fractures GI Medical History: GERD, Other History: Renal Disease Psycho-Social History: Anxiety, Depression Female Reproductive Disorders: Fibroids Other Medical History: Left Ankle FX with multiple surgeries, 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 HX ascites. DX fatty liver - Past Surgical History Past Surgical History: Yes Neuro Surgical History: No Pertinent History Cardiac: No Pertinent History Respiratory: No Pertinent History Gastrointestinal: Cholecystectomy, Exploratory Laparoscopy Genitourinary: No Pertinent History Musculoskeletal: Amputation Female Surgical History: Section, Hysterectomy Other Surgical History: foot surgery, screw placed in left big toe, removal, and HX antibiotic bead placement. mult lt foot surgeries. LT BKA February 2019. Dialysis M,W,F, UTI infusions currently - Social History Smoking Status: Current every day smoker How long have you smoked: 36 years Exposure to second hand smoke: Yes Drug Use: none Patient Lives Alone: No Significant Family History: no pertinent family hx - Female History Hx Now: No - Nursing Vital Signs Nursing Vital Signs: Initial Vital Signs Temperature 97.9 F 04/11/21 14:54 Pulse Rate 102 H 04/11/21 14:54 Respiratory Rate 18 04/11/21 14:54 Blood Pressure 194/97 04/11/21 14:54 O2 Sat by Pulse Oximetry 89 L 04/11/21 14:54 Pain Scale Pain Intensity 7 - Physical Exam General Appearance: no apparent distress, alert, anxiety Eye Exam: PERRL/EOMI, eyes nml inspection Ears, Nose, Throat Exam: hearing grossly normal, normal ENT inspection, normal pharynx Neck Exam: normal inspection, supple, full range of motion Respiratory Exam: diminished breath sounds, wheezing, No respiratory distress, No accessory muscle use Cardiovascular/Chest Exam: normal heart sounds, regular rate/rhythm Abdominal/Gastrointestinal Exam: soft, normal bowel sounds, No tenderness Extremity Exam: non-tender, normal range of motion Neurologic Exam: alert, 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, cooperative Skin Exam: normal color SpO2 Interpretation: normal SpO2: 100 O2 Delivery: Nasal Cannula - Course EKG Interpreted by Me: RATE ([id number]), Sinus Tach, NORMAL AXIS, NORMAL INTERVALS, Non-specific ST Changes Ordered Tests: Medication Summary Discontinued Medications Generic Name Dose Route Start Last Admin Trade Name Freq PRN Reason Stop Dose Admin Acetaminophen 650 mg 04/11/21 20:35 Tylenol 325 Mg PO 05/11/21 20:34 Q4H PRN PRN PAIN AND/OR FEVER Hydrocodone Bitart/Acetaminophen 1 tablet 04/11/21 22:00 04/12/21 22:51 Hydrocodone-Acetamin 10-325 Mg PO 04/16/21 21:59 1 tablet BID TISHA Administration Albuterol Sulfate 2.5 mg 04/12/21 07:00 04/13/21 06:49 Proventil 2.5 Mg/3 Ml Neb IH 05/12/21 06:59 2.5 mg QIDRT TISHA Administration Albuterol Sulfate 2.5 mg 04/11/21 21:58 04/11/21 23:22 Proventil 2.5 Mg/3 Ml Neb IH 05/11/21 21:57 2.5 mg Q4H PRN PRN Administration SHORTNESS OF BREATH/WHEEZING Albuterol/Ipratropium 3 ml 04/11/21 16:42 04/11/21 17:47 Duoneb 0.5-3 Mg/3 Ml Neb IH 04/11/21 16:43 3 ml STAT ONE Administration Albuterol/Ipratropium Confirm 04/11/21 17:29 Duoneb 0.5-3 Mg/3 Ml Neb Administered 04/11/21 17:30 Dose 3 ml IH .STK-MED ONE Albuterol/Ipratropium 3 ml 04/11/21 20:35 Duoneb 0.5-3 Mg/3 Ml Neb IH 05/11/21 20:34 QIDRT TISHA Aspirin 81 mg 04/12/21 10:00 04/12/21 09:36 Ecotrin 81 Mg PO 05/12/21 09:59 81 mg DAILY TISHA Administration Methylprednisolone Sodium 0 mg 04/11/21 16:42 04/11/21 17:13 Succinate 80 mg/ Sterile Water IV 04/11/21 16:43 80 mg 2 ml STAT ONE Administration Dextrose 50 ml 04/13/21 07:32 04/13/21 07:39 D50w 50 Ml Abboject IV 04/13/21 07:33 50 ml STAT ONE Administration Docusate Sodium 100 mg 04/12/21 07:11 Colace 100 Mg PO 05/12/21 07:10 HSPRN PRN CONSTIPATION Duloxetine HCl 30 mg 04/11/21 22:00 04/12/21 22:50 Cymbalta 30 Mg Capsule PO 05/11/21 21:59 30 mg BID TISHA Administration Ergocalciferol 50,000 unit 04/18/21 10:00 Vitamin D2 PO 05/18/21 09:59 CHEW TISHA Famotidine 20 mg 04/11/21 22:00 04/12/21 22:52 Pepcid 20 Mg Vial IV 05/11/21 21:59 20 mg Q12HT TISHA Administration Ferrous Sulfate 325 mg 04/12/21 10:00 04/12/21 22:51 Feosol 325 Mg PO 05/12/21 09:59 325 mg BID TISHA Administration Gabapentin 400 mg 04/12/21 10:00 04/12/21 22:51 Neurontin 400 Mg PO 05/12/21 09:59 400 mg TID TISHA Administration Hydroxyzine HCl 12.5 mg 04/12/21 10:00 04/12/21 22:50 Atarax 25 Mg PO 05/12/21 09:59 12.5 mg BID TISHA Administration Ceftriaxone Sodium/Dextrose 2 g in 50 mls @ 100 mls/hr 04/11/21 17:36 04/11/21 18:43 Rocephin 2 Gm-D5w 50ml Bag IV 04/11/21 18:05 Infused STAT STA Infusion Azithromycin 500 mg in 250 mls @ 250 mls/hr 04/11/21 17:36 04/11/21 18:57 Zithromax 500 Mg/ 250 Ml Nacl Premix IV 04/11/21 18:35 250 ml/hr STAT STA 250 mls/hr Administration Ceftriaxone Sodium/Dextrose Confirm 04/11/21 18:07 Rocephin 2 Gm-D5w 50ml Bag Administered 04/11/21 18:08 Dose 2 g in 50 mls @ ud IV .STK-MED ONE Azithromycin Confirm 04/11/21 18:54 Zithromax 500 Mg/ 250 Ml Nacl Premix Administered 04/11/21 18:55 Dose 500 mg in 250 mls @ ud IV .STK-MED ONE Sodium Chloride 1,000 mls @ 75 mls/hr 04/11/21 20:35 04/12/21 16:43 Sodium Chloride 0.9% 1000 Ml IV 05/11/21 20:34 75 mls/hr .[id number] TISHA Administration Azithromycin 500 mg in 250 mls @ 250 mls/hr 04/12/21 10:00 04/12/21 09:33 Zithromax 500 Mg/ 250 Ml Nacl Premix IV 05/12/21 09:59 250 mls/hr Q24H10 TISHA Administration Ceftriaxone Sodium/Dextrose 1 g in 50 mls @ 100 mls/hr 04/12/21 10:00 04/12/21 09:30 Rocephin 1 Gm-D5w 50 Ml Bag IV 04/15/21 09:59 100 mls/hr Q24H10 TISHA Administration Insulin Glargine 20 unit 04/11/21 22:00 04/11/21 22:37 Lantus Insulin SQ 05/11/21 21:59 20 unit BID TISHA Administration Insulin Glargine 20 unit 04/12/21 08:00 04/12/21 20:02 Lantus Insulin SQ 05/12/21 07:59 20 unit BID@0800,2000 TISHA Administration Insulin Human Lispro 0 unit 04/11/21 20:35 04/12/21 18:09 Humalog SQ 05/11/21 20:34 2 unit UD PRN Administration HYPERGLYCEMIA Insulin Human Lispro 10 unit 04/12/21 08:00 04/12/21 18:08 Humalog SQ 05/12/21 07:59 10 unit TIDWMEALS TISHA Administration Levothyroxine Sodium 25 mcg 04/12/21 10:00 04/12/21 09:35 Synthroid 25 Mcg PO 05/12/21 09:59 25 mcg DAILY TISHA Administration Methylprednisolone Sodium Succinate Confirm 04/11/21 17:11 Solu-Medrol Administered 04/11/21 17:12 Dose 125 mg .ROUTE .STK-MED ONE Midodrine 10 mg 04/11/21 22:00 04/12/21 23:09 Proamatine 5 Mg PO 05/11/21 21:59 Not Given QID TISHA Nicotine 14 mg 04/11/21 22:15 04/11/21 22:38 Nicoderm Cq 14 Mg TOP 05/11/21 22:14 14 mg Q24H TISHA Administration Nicotine 14 mg 04/12/21 22:00 04/12/21 22:52 Nicoderm Cq 14 Mg TOP 05/12/21 21:59 14 mg Q24H22 TISHA Administration Pantoprazole Sodium 40 mg 04/12/21 10:00 04/12/21 09:36 Protonix 40mg Tablet PO 05/12/21 09:59 40 mg DAILY TISHA Administration Promethazine HCl 25 mg 04/12/21 07:11 04/12/21 10:29 Phenergan 25 Mg PO 05/12/21 07:10 25 mg Q6HPRN PRN Administration NAUSEA/VOMITING Simvastatin 10 mg 04/12/21 22:00 04/12/21 22:52 Zocor 10mg PO 05/12/21 21:59 10 mg HS TISHA Administration Sterile Water Confirm 04/11/21 17:11 Sterile H2o 10 Ml Administered 04/11/21 17:12 Dose 10 ml IJ .STK-MED ONE Tiotropium [place] 1 ea 04/12/21 10:00 04/13/21 07:50 Spiriva 18 Mcg/Cap Inhaler IH 05/12/21 09:59 1 ea DAILY TISHA Administration Lab/Rad Data: Laboratory Result Diagrams 04/11/21 17:10 04/11/21 17:10 Laboratory Results 04/11/21 04/11/21 04/11/21 Range/Units 19:45 18:39 17:10 WBC (4.0-10.5) K/mm3 RBC (4.1-5.4) M/mm3 Hgb (12.0-16.0) gm/dl Hct (35-47) % MCV (78-100) fl MCH (26-32) pg MCHC (32-36) g/dl RDW (11.5-14.0) % Plt Count (150-450) K/mm3 MPV (7.5-11.0) fl Gran % (36.0-66.0) % Eos # (Auto) (0-0.5) Absolute Lymphs (auto) (1.0-4.6) Absolute Monos (auto) (0.0-1.3) Lymphocytes % (24.0-44.0) % Monocytes % (0.0-12.0) % Eosinophils % (0.00-5.0) % Basophils % (0.0-0.4) % Absolute Granulocytes (1.4-6.9) Basophils # (0-0.4) Sodium 121 L (137-145) mmol/L Potassium 3.5 (3.5-5.1) mmol/L Chloride 86 L (98-107) mmol/L Carbon Dioxide 29 (22-30) mmol/L Anion Gap 9.1 (5-15) MEQ/L BUN 17 (7-17) mg/dL Creatinine 1.70 H (0.52-1.04) mg/dL Estimated GFR 33.4 ML/MIN Glucose 338 H (74-106) mg/dL Lactic Acid (0.4-2.0) Calcium 7.5 L (8.4-10.2) mg/dL Magnesium 1.7 (1.6-2.3) mg/dL Total Bilirubin 0.20 (0.2-1.3) mg/dL AST 24 (14-36) U/L ALT 12 (0-35) U/L Alkaline Phosphatase 155 H (38-126) U/L Troponin I < 0.012 (0.000-0.034) ng/mL NT-Pro-B Natriuret Pep 3350 H (0-900) pg/mL Serum Total Protein 5.6 L (6.3-8.2) g/dL Albumin 2.3 L (3.5-5.0) g/dL SARS-CoV-2 (PCR) NEGATIVE (NEGATIVE) 04/11/21 04/11/21 04/11/21 Range/Units 17:10 16:45 16:42 WBC 8.8 (4.0-10.5) K/mm3 RBC 3.09 L (4.1-5.4) M/mm3 Hgb 8.6 L (12.0-16.0) gm/dl Hct 27.3 L (35-47) % MCV 88.3 (78-100) fl MCH 27.8 (26-32) pg MCHC 31.5 L (32-36) g/dl RDW 16.4 H (11.5-14.0) % Plt Count 164 (150-450) K/mm3 MPV 8.7 (7.5-11.0) fl Gran % 73.1 H (36.0-66.0) % Eos # (Auto) 0.24 (0-0.5) Absolute Lymphs (auto) 1.50 (1.0-4.6) Absolute Monos (auto) 0.57 (0.0-1.3) Lymphocytes % 17.1 L (24.0-44.0) % Monocytes % 6.5 (0.0-12.0) % Eosinophils % 2.7 (0.00-5.0) % Basophils % 0.6 (0.0-0.4) % Absolute Granulocytes 6.43 (1.4-6.9) Basophils # 0.05 (0-0.4) Sodium (137-145) mmol/L Potassium (3.5-5.1) mmol/L Chloride (98-107) mmol/L Carbon Dioxide (22-30) mmol/L Anion Gap (5-15) MEQ/L BUN (7-17) mg/dL Creatinine (0.52-1.04) mg/dL Estimated GFR ML/MIN Glucose (74-106) mg/dL Lactic Acid 1.1 (0.4-2.0) Calcium (8.4-10.2) mg/dL Magnesium (1.6-2.3) mg/dL Total Bilirubin (0.2-1.3) mg/dL AST (14-36) U/L ALT (0-35) U/L Alkaline Phosphatase (38-126) U/L Troponin I < 0.012 (0.000-0.034) ng/mL NT-Pro-B Natriuret Pep (0-900) pg/mL Serum Total Protein (6.3-8.2) g/dL Albumin (3.5-5.0) g/dL SARS-CoV-2 (PCR) (NEGATIVE) - Progress Progress: improved Air Movement: fair Progress Note: 04/11/21 18:08 Years old is evaluated for increasing shortness of breath despite being on oxygen and worsening cough. Patient continues to smoke. She is maintaining sats around upper 90s with 3 L oxygen. Chest x-ray showed bilateral airspace disease with a infiltrative process on the right side. Started on Zithromax and Rocephin. Patient has normal white count, chronic anemia. Chemistry profile showed hyponatremia 121 and has stable renal functions. Patient does make urine. After discussion with , started on 75 mill per hour of normal saline, restricting free water intake and will be reevaluated later. Patient has nonfocal neuro exam. With her stable renal functions and being a dialysis patient supposed to be on tomorrow, discussed with who thinks it would be okay to delay her dialysis for 1 day as patient wants to stay here rather than going to any other facility. Blood Culture(s) Obtained: Yes Antibiotics given: Yes Discussed with : Kishore Will see patient in: hospital (observation) Counseled pt/family regarding: lab results, diagnosis, rad results, smoking cessation - Departure Departure Disposition: Observation Clinical Impression: Hyponatremia Pneumonia Qualifiers: Pneumonia type: due to unspecified organism Laterality: right Lung location: lower lobe of lung Qualified Code(s): J18.9 - Pneumonia, unspecified organism Respiratory failure Qualifiers: Chronicity: acute on chronic Respiratory failure complication: hypoxia Qualified Code(s): J96.21 - Acute and chronic respiratory failure with hypoxia Condition: Stable Critical Care Time: No
[2021-04-11] MEDS ORDERED: DUONEB 0.5-3 MG/3 ml Neb IH ONE ×2 (16:42→17:29)
[2021-04-11] MEDS ORDERED: solu-MEDROL 80 MG, Sterile H2O 10 ml 2 ML IV ONE ×2 (16:42)
[2021-04-11] MEDS ORDERED: solu-MEDROL ONE (17:11)
[2021-04-11] MEDS ORDERED: Sterile H2O 10 ml IJ ONE (17:11)
[2021-04-11 17:20] LABS: Absolute Neutrophil Ct (ANC) 6.43 (1.4-6.9); BASOPHIL % 0.6 % (0.0-0.4); Basophil (Absolute #) 0.05 (0-0.4); Eosinophil % 2.7 % (0.00-5.0); Eosinophil (Absolute #) 0.24 (0-0.5); Hematocrit 27.3 % (35-47); Hemoglobin 8.6 gm/dl (12.0-16.0); Lymphocytes % 17.1 % (24.0-44.0); Mean Cell Volume 88.3 fl (78-100); Mean Corpuscular Hemoglobin 27.8 pg (26-32); Mean Corpuscular Hgb Concent. 31.5 g/dl (32-36); Mean Platelet Volume 8.7 fl (7.5-11.0); Monocyte (Absolute #) 0.57 (0.0-1.3); Monocytes % 6.5 % (0.0-12.0); Neutrophil % 73.1 % (36.0-66.0); Platelet Count 164 K/mm3 (150-450); Red Blood Count 3.09 M/mm3 (4.1-5.4); Red Cell Distribution Width 16.4 % (11.5-14.0); White Blood Count 8.8 K/mm3 (4.0-10.5)
[2021-04-11] MEDS ORDERED: Zithromax 500 MG/ 250 ML NaCl Premix 500 MG/250 ML IVPB IV STA (17:36)
[2021-04-11] MEDS ORDERED: ROCEPHIN 2 Gm-D5w 50ML BAG** 2 G/50 ML IVPB IV STA (17:36)
[2021-04-11 17:41] LABS: ALBUMIN 2.3 g/dL (3.5-5.0); ANION GAP 9.1 MEQ/L (5-15); BILIRUBIN,TOTAL 0.2 mg/dL (0.2-1.3); Calcium 7.5 mg/dL (8.4-10.2); Creatinine 1 1.7 mg/dL (0.52-1.04); EST GLOMERULAR FILTRATION RATE 33.4 ML/MIN; MAGNESIUM 1.7 mg/dL (1.6-2.3); Potassium 3.5 mmol/L (3.5-5.1); Total Protein 5.6 g/dL (6.3-8.2)
[2021-04-11] MEDS ORDERED: ROCEPHIN 2 Gm-D5w 50ML BAG** 2 G/50 ML IVPB IV ONE (18:07)
[2021-04-11] MEDS ORDERED: Zithromax 500 MG/ 250 ML NaCl Premix 500 MG/250 ML IVPB IV ONE (18:54)
[2021-04-11] MEDS ORDERED: DUONEB 0.5-3 MG/3 ml Neb IH SCH (20:35)
[2021-04-11] MEDS ORDERED: TYLENOL 325 MG PO PRN (20:35)
[2021-04-11] MEDS ORDERED: PROVENTIL 2.5 MG/3 ML NEB IH PRN (21:58)
[2021-04-11] MEDS ORDERED: Lantus Insulin SQ SCH (22:00)
[2021-04-11] MEDS ORDERED: NICODERM CQ 14 MG TOP SCH (22:15)
[2021-04-11] MEDS: HYDROCODONE-ACETAMIN 10-325 MG PO SCH (22:37)
[2021-04-11] MEDS: Cymbalta 30 MG Capsule PO SCH (22:37)
[2021-04-11] MEDS: Pepcid 20 MG VIAL IV SCH (22:38)
[2021-04-11] MEDS: PROAMATINE 5 MG PO SCH (22:38)
[2021-04-11] MEDS: Sodium Chloride 0.9% 1000 ML 1,000 ML IV SCH (22:39)
[2021-04-12 05:51] LABS: Absolute Neutrophil Ct (ANC) 4.75 (1.4-6.9); BASOPHIL % 0.2 % (0.0-0.4); Basophil (Absolute #) 0.01 (0-0.4); Eosinophil % 0.2 % (0.00-5.0); Eosinophil (Absolute #) 0.01 (0-0.5); Hematocrit 28.6 % (35-47); Lymphocyte (Absolute #) 0.53 (1.0-4.6); Lymphocytes % 9.7 % (24.0-44.0); Mean Cell Volume 89.4 fl (78-100); Mean Corpuscular Hemoglobin 28.1 pg (26-32); Mean Corpuscular Hgb Concent. 31.5 g/dl (32-36); Mean Platelet Volume 8.8 fl (7.5-11.0); Monocyte (Absolute #) 0.14 (0.0-1.3); Monocytes % 2.6 % (0.0-12.0); Neutrophil % 87.3 % (36.0-66.0); Platelet Count 145 K/mm3 (150-450); Red Cell Distribution Width 16.4 % (11.5-14.0); White Blood Count 5.4 K/mm3 (4.0-10.5)
[2021-04-12 06:17] LABS: Slide Review 1 YES
[2021-04-12 06:23] LABS: ALBUMIN 2.5 g/dL (3.5-5.0); ANION GAP 12.3 MEQ/L (5-15); BILIRUBIN,TOTAL 0.1 mg/dL (0.2-1.3); Calcium 7.3 mg/dL (8.4-10.2); Creatinine 1 1.69 mg/dL (0.52-1.04); EST GLOMERULAR FILTRATION RATE 33.6 ML/MIN; Potassium 4.4 mmol/L (3.5-5.1); Total Protein 5.8 g/dL (6.3-8.2)
[2021-04-12] MEDS: PROVENTIL 2.5 MG/3 ML NEB IH SCH ×4 (06:52→19:31)
[2021-04-12] MEDS: Spiriva 18 Mcg/Cap Inhaler IH SCH (06:52)
[2021-04-12] MEDS ORDERED: Colace 100 MG PO PRN (07:11)
[2021-04-12] MEDS ORDERED: PHENERGAN 25 MG PO PRN (07:11)
[2021-04-12] MEDS ORDERED: INSULIN LISPRO 10 UNIT SQ SCH (08:00)
[2021-04-12] MEDS: HUMALOG SQ SCH ×3 (08:11→18:08)
[2021-04-12] MEDS: Lantus Insulin SQ SCH ×2 (08:12→20:02)
[2021-04-12] MEDS: HUMALOG SQ PRN ×3 (08:12→18:09)
[2021-04-12 08:14] LABS: Appearance SLIGHTLY CLOUDY (CLEAR); Bilirubin NEGATIVE (NEGATIVE); Blood NEGATIVE Ery/ul (0-5); Glucose >=500 mg/dL (NEGATIVE); Ketones NEGATIVE (NEGATIVE); Leukocyte Esterase SMALL (NEGATIVE); Nitrite NEGATIVE (NEGATIVE); Protein,Urine Dip NEGATIVE (Negative); Urobilinogen NEGATIVE mg/dL (0-1); WBC 26-50 /HPF (0-5)
[2021-04-12 08:15] LABS: Bacteria FEW /HPF (NEGATIVE); Epithelial Cells FEW /HPF (FEW); Non-Squamous Epithelial Cells OCCASIONAL /HPF (FEW)
--- NOTE | 2021-04-12 08:58 | XRAY ---
Indication: Short of breath. Dialysis patient. Comparison: March 30, 2021. Portable chest demonstrates interval dialysis catheter removal. Stable chronic diffuse bilateral interstitial alveolar opacities with right base infiltrate/atelectasis. Heart not enlarged. No new cardiopulmonary abnormalities.
[2021-04-12] MEDS: Pepcid 20 MG VIAL IV SCH ×2 (09:34→22:52)
[2021-04-12] MEDS: FEOSOL 325 MG PO SCH ×2 (09:35→22:51)
[2021-04-12] MEDS: Neurontin 400 MG PO SCH ×3 (09:35→22:51)
[2021-04-12] MEDS: Cymbalta 30 MG Capsule PO SCH ×2 (09:36→22:50)
[2021-04-12] MEDS: PROAMATINE 5 MG PO SCH ×4 (09:36→23:09)
[2021-04-12] MEDS: ATARAX 25 MG PO SCH ×2 (09:37→22:50)
[2021-04-12] MEDS: HYDROCODONE-ACETAMIN 10-325 MG PO SCH ×2 (09:42→22:51)
[2021-04-12] MEDS ORDERED: Zithromax 500 MG/ 250 ML NaCl Premix 500 MG/250 ML IVPB IV SCH (10:00)
[2021-04-12] MEDS ORDERED: SYNTHROID 25 MCG PO SCH (10:00)
[2021-04-12] MEDS ORDERED: ECOTRIN 81 MG PO SCH (10:00)
[2021-04-12] MEDS ORDERED: NON-FORMULARY ITEM (Hydroxyzine Hcl [Hydroxyzine Hcl] 10 MG) PO SCH (10:00)
[2021-04-12] MEDS ORDERED: Protonix 40MG Tablet PO SCH (10:00)
[2021-04-12] MEDS ORDERED: ROCEPHIN 1 Gm-D5w 50 ml Bag** 1 G/50 ML IVPB IV SCH (10:00)
[2021-04-12] MEDS ORDERED: NON-FORMULARY ITEM (Omeprazole 20 Mg [Prilosec 20 Mg] 20 MG) PO SCH (10:00)
--- NOTE | 2021-04-12 13:04 | PCM.HP ---
History of Present Illness - Chief Complaint Chief Complaint: weakness for 1-2 days, shortness of breath for 1 day History of Present Illness: is a 55 year old female.with multiple medical problems including diabetes mellitus, end-stage renal disease on dialysis 3 times a week, hypert ension, hyperlipidemia, COPD, tobacco abuse, below knee amputation presented in the ER with almost 1 week history of increasing shortness of breath initially with activity and now even at resting. Patient reports she feels tightness in the chest and despite using 2 L oxygen she is short of breath. On presentation she is maintaining oxygen saturation around 89% on 2 L, increased to 3 L and currently around 97%. Reports minimal productive cough which is not worse than usual. Also complaining of bilateral lower extremity swelling and some abdominal distention. Does have history of paracentesis in the past. No fever. Did receive Covid vaccine. She has UTI and receiving IV antibiotics outpatient but has not received for 2 days as she did not have a ride. Timing/Duration: week(s) (1), intermittent, gradual onset, worse Activities at Onset: rest Severity of Dyspnea-Max: moderate Severity of Dyspnea-Current: moderate Possible Cause: occasional episodes Modifying Factors: Improves With: oxygen. Worsens With: activity, coughing, exertion Associated Symptoms: cough, chest pain/discomfort, edema, leg swelling, productive cough, tightness, No fever - Review of Systems Constitutional: Weakness, No Fever, No Chills Eyes: No Symptoms Ears, Nose, & Throat: No Symptoms Respiratory: Cough, Orthopnea, Short Of Breath, Wheezing Cardiac: No Chest Pain, No Edema, No Syncope Abdominal/Gastrointestinal: No Abdominal Pain, No Nausea, No Vomiting, No Velia rrhea Genitourinary Symptoms: No Dysuria Musculoskeletal: No Back Pain, No Neck Pain Skin: No Rash Neurological: No Dizziness, No Focal Weakness, No Sensory Changes Psychological: No Symptoms Endocrine: No Symptoms Hematologic/Lymphatic: No Symptoms Immunological/Allergic: No Symptoms Medications & Allergies Home Medications: Home Medication List Duloxetine HCl 30 mg [Cymbalta 30 MG Capsule] 30 mg PO BID 11/17/12 [History Confirmed 04/11/21] Albuterol Sulfate [Proair Hfa] 2 puff IH Q4HPRN PRN 04/21/15 [History Confirmed 04/11/21] Omeprazole 20 MG [Prilosec 20 mg] 20 mg PO DAILY 04/21/15 [History Confirmed 04/11/21] Pravastatin Sodium [Pravachol] 10 mg PO HS 02/07/16 [History Confirmed 04/11/21] Gabapentin [Gralise] 400 mg PO TID 11/11/16 [History Confirmed 04/11/21] Docusate Sodium 100 mg [Colace 100 MG] 100 mg PO HSPRN PRN 01/18/19 [History Confirmed 04/11/21] Ergocalciferol (Vitamin D2) [Vitamin D] 50,000 units PO CHEW 01/18/19 [History Confirmed 04/11/21] Ferrous Sulfate 325 mg PO BID 01/18/19 [History Confirmed 04/11/21] Hydroxyzine HCl 10 mg PO BID 01/18/19 [History Confirmed 04/11/21] Levothyroxine Sodium 25 Mcg [Synthroid 25 Mcg] 25 mcg PO DAILY 01/18/19 [History Confirmed 04/11/21] Insulin Glargine [Lantus Insulin] 20 units SQ BID 09/27/19 [History Confirmed 04/11/21] Tiotropium [place] [Spiriva Respimat] 1 puff IH DAILY 10/14/19 [History Confirmed 04/11/21] Insulin Lispro [Humalog Kwikpen U-100] 10 unit SQ TIDWMEALS 03/27/20 [History Confirmed 04/11/21] Promethazine HCl 25 mg [Phenergan 25 mg] 25 mg PO Q6HPRN PRN 03/27/20 [History Confirmed 04/11/21] Hydrocodone/Acetaminophen [Hydrocodone-Acetamin 10-325 mg^^^] 1 ea PO BID 06/01/20 [History Confirmed 04/11/21] Nicotine 14 mg [Nicoderm Cq 14 mg] 14 mg TD Q24H 06/21/20 [History Confirmed 04/11/21] Albuterol 2.5 mg/3 ml Neb [Proventil 2.5 mg/3 ml Neb] 1 ampul IH QID PRN 07/16/20 [History Confirmed 04/11/21] Midodrine HCl 10 mg PO QID 09/30/20 [History Confirmed 04/11/21] Aspirin EC 81 mg [Ecotrin 81 mg] 81 mg PO DAILY 03/30/21 [History Confirmed 04/11/21] Allergies/Adverse Reactions: Allergies Allergy/AdvReac Type Severity Reaction Status Date / Time adhesive tape Allergy Mild Blisters Verified 04/07/21 14:46 clindamycin AdvReac Mild Skin Verified 04/07/21 14:46 Irritation bee stings Allergy Mild Anaphylactic Uncoded 01/24/21 19:15 Reaction - Past Medical History Past Medical History: Yes Neurological History: Peripheral Neuropathy ENT History: No Pertinent History Cardiac History: Congestive Heart Failure, Deep Vein Thrombosis, Hypertension Respiratory History: Asthma, CHF, COPD, Pneumonia, Pulmonary Embolism Endocrine Medical History: Diabetes Type II, Hypoglycemia, Hypothyroidism Musculoskelatal History: Fractures GI Medical History: GERD, Other History: Renal Disease Pyscho-Social History: Anxiety, Depression Reproductive Disorders: Fibroids Comment: Left Ankle FX with multiple surgeries, 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 HX ascites. DX fatty liver - Female History Are you now?: No - Past Surgical History Past Surgical History: Yes Neuro Surgical History: No Pertinent History Cardiac History: No Pertinent History Respiratory Surgery: No Pertinent History GI Surgical History: Cholecystectomy, Exploratory Laparoscopy Genitourinary Surgical Hx: No Pertinent History Musculskeletal Surgical Hx: Amputation Female Surgical History: Section, Hysterectomy Other Surgical History: foot surgery, screw placed in left big toe, removal, and HX antibiotic bead placement. mult lt foot surgeries. LT BKA February 2019. Dialysis M,W,F, UTI infusions currently - Social History Smoking Status: Current every day smoker How long have you smoked: 36 years Exposure to second hand smoke: Yes Alcohol: None Drug Use: none Significant Family History: no pertinent family hx - Physical Exam Vital Signs: Vital Signs - 24 hr Temp Pulse Resp BP Pulse Ox 04/12/21 11:38 97.9 F 106 H 18 151/79 100 04/12/21 10:50 106 H 18 97 04/12/21 07:11 98.2 F 98 H 22 145/90 92 L 04/12/21 06:56 97 H 22 99 04/12/21 03:34 97.9 F 96 H 18 162/79 100 04/12/21 00:00 97.7 F 81 18 140/67 96 04/11/21 23:22 102 H 18 98 04/11/21 22:30 97.7 F 100 H 19 138/71 100 04/11/21 20:32 98 H 19 99 04/11/21 20:00 100 H 20 134/84 99 04/11/21 19:00 104 H 20 169/108 99 04/11/21 18:13 100 04/11/21 17:47 96 H 22 100 04/11/21 17:00 92 H 18 182/95 99 04/11/21 16:02 100 H 15 169/86 100 04/11/21 15:24 100 04/11/21 14:54 97.9 F 102 H 18 194/97 100 General Appearance: no apparent distress, alert Neurologic Exam: alert, 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, cooperative, normal mood/affect, nml cerebellar function, nml station & gait, sensation nml, No motor deficits Eye Exam: PERRL/EOMI, eyes nml inspection Ears, Nose, Throat Exam: normal ENT inspection, TMs normal, pharynx normal, moist mucous membranes Neck Exam: normal inspection, non-tender, supple, full range of motion Respiratory Exam: diminished breath sounds, No respiratory distress Cardiovascular Exam: regular rate/rhythm, normal heart sounds, normal peripheral pulses Gastrointestinal/Abdomen Exam: soft, normal bowel sounds, No tenderness, No mass Back Exam: normal inspection, normal range of motion, No CVA tenderness, No vertebral tenderness Extremity Exam: normal inspection, normal range of motion, pelvis stable Skin Exam: normal color, warm, dry, No rash Lymphatic Exam: No adenopathy Results - Labs Lab/Micro Results: Lab Results-Last 24 Hours 04/11/21 04/11/21 04/11/21 Range/Units 16:42 16:45 17:10 WBC 8.8 (4.0-10.5) K/mm3 RBC 3.09 L (4.1-5.4) M/mm3 Hgb 8.6 L (12.0-16.0) gm/dl Hct 27.3 L (35-47) % MCV 88.3 (78-100) fl MCH 27.8 (26-32) pg MCHC 31.5 L (32-36) g/dl RDW 16.4 H (11.5-14.0) % Plt Count 164 (150-450) K/mm3 MPV 8.7 (7.5-11.0) fl Gran % 73.1 H (36.0-66.0) % Eos # (Auto) 0.24 (0-0.5) Absolute Lymphs (auto) 1.50 (1.0-4.6) Absolute Monos (auto) 0.57 (0.0-1.3) Lymphocytes % 17.1 L (24.0-44.0) % Monocytes % 6.5 (0.0-12.0) % Eosinophils % 2.7 (0.00-5.0) % Basophils % 0.6 (0.0-0.4) % Absolute Granulocytes 6.43 (1.4-6.9) Basophils # 0.05 (0-0.4) Sodium (137-145) mmol/L Potassium (3.5-5.1) mmol/L Chloride (98-107) mmol/L Carbon Dioxide (22-30) mmol/L Anion Gap (5-15) MEQ/L BUN (7-17) mg/dL Creatinine (0.52-1.04) mg/dL Estimated GFR ML/MIN Glucose (74-106) mg/dL POC Glucometer (74 to 106) mg/dL Hemoglobin A1c (4.5-6.0) % Lactic Acid 1.1 (0.4-2.0) Calcium (8.4-10.2) mg/dL Magnesium (1.6-2.3) mg/dL Total Bilirubin (0.2-1.3) mg/dL AST (14-36) U/L ALT (0-35) U/L Alkaline Phosphatase (38-126) U/L Troponin I < 0.012 (0.000-0.034) ng/mL NT-Pro-B Natriuret Pep (0-900) pg/mL Serum Total Protein (6.3-8.2) g/dL Albumin (3.5-5.0) g/dL Urine Color (YELLOW) Urine Appearance (CLEAR) Urine pH (5-6) Ur Specific [place] (1.005-1.025) Urine Protein (Negative) Urine Ketones (NEGATIVE) Urine Blood (0-5) Ubaldo/ul Urine Nitrite (NEGATIVE) Urine Bilirubin (NEGATIVE) Urine Urobilinogen (0-1) mg/dL Ur Leukocyte Esterase (NEGATIVE) Urine WBC (Auto) (0-5) /HPF Urine RBC (Auto) (0-2) /HPF U Hyaline Cast (Auto) (0-2) /LPF U Epithel Cells (Auto) (FEW) /HPF Urine Bacteria (Auto) (NEGATIVE) /HPF U Non-Squamous Epi Cells (FEW) /HPF Urine Culture Reflexed (NO) Urine Glucose (NEGATIVE) mg/dL SARS-CoV-2 (PCR) (NEGATIVE) Slides for Path Review 04/11/21 04/11/21 04/11/21 Range/Units 17:10 18:39 19:45 WBC (4.0-10.5) K/mm3 RBC (4.1-5.4) M/mm3 Hgb (12.0-16.0) gm/dl Hct (35-47) % MCV (78-100) fl MCH (26-32) pg MCHC (32-36) g/dl RDW (11.5-14.0) % Plt Count (150-450) K/mm3 MPV (7.5-11.0) fl Gran % (36.0-66.0) % Eos # (Auto) (0-0.5) Absolute Lymphs (auto) (1.0-4.6) Absolute Monos (auto) (0.0-1.3) Lymphocytes % (24.0-44.0) % Monocytes % (0.0-12.0) % Eosinophils % (0.00-5.0) % Basophils % (0.0-0.4) % Absolute Granulocytes (1.4-6.9) Basophils # (0-0.4) Sodium 121 L (137-145) mmol/L Potassium 3.5 (3.5-5.1) mmol/L Chloride 86 L (98-107) mmol/L Carbon Dioxide 29 (22-30) mmol/L Anion Gap 9.1 (5-15) MEQ/L BUN 17 (7-17) mg/dL Creatinine 1.70 H (0.52-1.04) mg/dL Estimated GFR 33.4 ML/MIN Glucose 338 H (74-106) mg/dL POC Glucometer (74 to 106) mg/dL Hemoglobin A1c (4.5-6.0) % Lactic Acid (0.4-2.0) Calcium 7.5 L (8.4-10.2) mg/dL Magnesium 1.7 (1.6-2.3) mg/dL Total Bilirubin 0.20 (0.2-1.3) mg/dL AST 24 (14-36) U/L ALT 12 (0-35) U/L Alkaline Phosphatase 155 H (38-126) U/L Troponin I < 0.012 (0.000-0.034) ng/mL NT-Pro-B Natriuret Pep 3350 H (0-900) pg/mL Serum Total Protein 5.6 L (6.3-8.2) g/dL Albumin 2.3 L (3.5-5.0) g/dL Urine Color (YELLOW) Urine Appearance (CLEAR) Urine pH (5-6) Ur Specific [place] (1.005-1.025) Urine Protein (Negative) Urine Ketones (NEGATIVE) Urine Blood (0-5) Ubaldo/ul Urine Nitrite (NEGATIVE) Urine Bilirubin (NEGATIVE) Urine Urobilinogen (0-1) mg/dL Ur Leukocyte Esterase (NEGATIVE) Urine WBC (Auto) (0-5) /HPF Urine RBC (Auto) (0-2) /HPF U Hyaline Cast (Auto) (0-2) /LPF U Epithel Cells (Auto) (FEW) /HPF Urine Bacteria (Auto) (NEGATIVE) /HPF U Non-Squamous Epi Cells (FEW) /HPF Urine Culture Reflexed (NO) Urine Glucose (NEGATIVE) mg/dL SARS-CoV-2 (PCR) NEGATIVE (NEGATIVE) Slides for Path Review 04/11/21 04/11/21 04/12/21 Range/Units 21:00 22:53 01:53 WBC (4.0-10.5) K/mm3 RBC (4.1-5.4) M/mm3 Hgb (12.0-16.0) gm/dl Hct (35-47) % MCV (78-100) fl MCH (26-32) pg MCHC (32-36) g/dl RDW (11.5-14.0) % Plt Count (150-450) K/mm3 MPV (7.5-11.0) fl Gran % (36.0-66.0) % Eos # (Auto) (0-0.5) Absolute Lymphs (auto) (1.0-4.6) Absolute Monos (auto) (0.0-1.3) Lymphocytes % (24.0-44.0) % Monocytes % (0.0-12.0) % Eosinophils % (0.00-5.0) % Basophils % (0.0-0.4) % Absolute Granulocytes (1.4-6.9) Basophils # (0-0.4) Sodium (137-145) mmol/L Potassium (3.5-5.1) mmol/L Chloride (98-107) mmol/L Carbon Dioxide (22-30) mmol/L Anion Gap (5-15) MEQ/L BUN (7-17) mg/dL Creatinine (0.52-1.04) mg/dL Estimated GFR ML/MIN Glucose (74-106) mg/dL POC Glucometer 276 H (74 to 106) mg/dL Hemoglobin A1c (4.5-6.0) % Lactic Acid (0.4-2.0) Calcium (8.4-10.2) mg/dL Magnesium (1.6-2.3) mg/dL Total Bilirubin (0.2-1.3) mg/dL AST (14-36) U/L ALT (0-35) U/L Alkaline Phosphatase (38-126) U/L Troponin I < 0.012 < 0.012 (0.000-0.034) ng/mL NT-Pro-B Natriuret Pep (0-900) pg/mL Serum Total Protein (6.3-8.2) g/dL Albumin (3.5-5.0) g/dL Urine Color (YELLOW) Urine Appearance (CLEAR) Urine pH (5-6) Ur Specific [place] (1.005-1.025) Urine Protein (Negative) Urine Ketones (NEGATIVE) Urine Blood (0-5) Ubaldo/ul Urine Nitrite (NEGATIVE) Urine Bilirubin (NEGATIVE) Urine Urobilinogen (0-1) mg/dL Ur Leukocyte Esterase (NEGATIVE) Urine WBC (Auto) (0-5) /HPF Urine RBC (Auto) (0-2) /HPF U Hyaline Cast (Auto) (0-2) /LPF U Epithel Cells (Auto) (FEW) /HPF Urine Bacteria (Auto) (NEGATIVE) /HPF U Non-Squamous Epi Cells (FEW) /HPF Urine Culture Reflexed (NO) Urine Glucose (NEGATIVE) mg/dL SARS-CoV-2 (PCR) (NEGATIVE) Slides for Path Review 04/12/21 04/12/21 04/12/21 Range/Units 04:40 04:40 04:40 WBC 5.4 (4.0-10.5) K/mm3 RBC 3.20 L (4.1-5.4) M/mm3 Hgb 9.0 L (12.0-16.0) gm/dl Hct 28.6 L (35-47) % MCV 89.4 (78-100) fl MCH 28.1 (26-32) pg MCHC 31.5 L (32-36) g/dl RDW 16.4 H (11.5-14.0) % Plt Count 145 L (150-450) K/mm3 MPV 8.8 (7.5-11.0) fl Gran % 87.3 H (36.0-66.0) % Eos # (Auto) 0.01 (0-0.5) Absolute Lymphs (auto) 0.53 L (1.0-4.6) Absolute Monos (auto) 0.14 (0.0-1.3) Lymphocytes % 9.7 L (24.0-44.0) % Monocytes % 2.6 (0.0-12.0) % Eosinophils % 0.2 (0.00-5.0) % Basophils % 0.2 (0.0-0.4) % Absolute Granulocytes 4.75 (1.4-6.9) Basophils # 0.01 (0-0.4) Sodium 117 L* (137-145) mmol/L Potassium 4.4 D (3.5-5.1) mmol/L Chloride 84 L (98-107) mmol/L Carbon Dioxide 25 (22-30) mmol/L Anion Gap 12.3 (5-15) MEQ/L BUN 19 H (7-17) mg/dL Creatinine 1.69 H (0.52-1.04) mg/dL Estimated GFR 33.6 ML/MIN Glucose 494 H (74-106) mg/dL POC Glucometer (74 to 106) mg/dL Hemoglobin A1c (4.5-6.0) % Lactic Acid (0.4-2.0) Calcium 7.3 L (8.4-10.2) mg/dL Magnesium (1.6-2.3) mg/dL Total Bilirubin 0.10 L (0.2-1.3) mg/dL AST 25 (14-36) U/L ALT 14 (0-35) U/L Alkaline Phosphatase 159 H (38-126) U/L Troponin I < 0.012 (0.000-0.034) ng/mL NT-Pro-B Natriuret Pep (0-900) pg/mL Serum Total Protein 5.8 L (6.3-8.2) g/dL Albumin 2.5 L (3.5-5.0) g/dL Urine Color (YELLOW) Urine Appearance (CLEAR) Urine pH (5-6) Ur Specific [place] (1.005-1.025) Urine Protein (Negative) Urine Ketones (NEGATIVE) Urine Blood (0-5) Ubaldo/ul Urine Nitrite (NEGATIVE) Urine Bilirubin (NEGATIVE) Urine Urobilinogen (0-1) mg/dL Ur Leukocyte Esterase (NEGATIVE) Urine WBC (Auto) (0-5) /HPF Urine RBC (Auto) (0-2) /HPF U Hyaline Cast (Auto) (0-2) /LPF U Epithel Cells (Auto) (FEW) /HPF Urine Bacteria (Auto) (NEGATIVE) /HPF U Non-Squamous Epi Cells (FEW) /HPF Urine Culture Reflexed (NO) Urine Glucose (NEGATIVE) mg/dL SARS-CoV-2 (PCR) (NEGATIVE) Slides for Path Review YES 04/12/21 04/12/21 04/12/21 Range/Units 06:00 06:27 06:38 WBC (4.0-10.5) K/mm3 RBC (4.1-5.4) M/mm3 Hgb (12.0-16.0) gm/dl Hct (35-47) % MCV (78-100) fl MCH (26-32) pg MCHC (32-36) g/dl RDW (11.5-14.0) % Plt Count (150-450) K/mm3 MPV (7.5-11.0) fl Gran % (36.0-66.0) % Eos # (Auto) (0-0.5) Absolute Lymphs (auto) (1.0-4.6) Absolute Monos (auto) (0.0-1.3) Lymphocytes % (24.0-44.0) % Monocytes % (0.0-12.0) % Eosinophils % (0.00-5.0) % Basophils % (0.0-0.4) % Absolute Granulocytes (1.4-6.9) Basophils # (0-0.4) Sodium (137-145) mmol/L Potassium (3.5-5.1) mmol/L Chloride (98-107) mmol/L Carbon Dioxide (22-30) mmol/L Anion Gap (5-15) MEQ/L BUN (7-17) mg/dL Creatinine (0.52-1.04) mg/dL Estimated GFR ML/MIN Glucose (74-106) mg/dL POC Glucometer 412 H (74 to 106) mg/dL Hemoglobin A1c 5.82 (4.5-6.0) % Lactic Acid (0.4-2.0) Calcium (8.4-10.2) mg/dL Magnesium (1.6-2.3) mg/dL Total Bilirubin (0.2-1.3) mg/dL AST (14-36) U/L ALT (0-35) U/L Alkaline Phosphatase (38-126) U/L Troponin I (0.000-0.034) ng/mL NT-Pro-B Natriuret Pep (0-900) pg/mL Serum Total Protein (6.3-8.2) g/dL Albumin (3.5-5.0) g/dL Urine Color YELLOW (YELLOW) Urine Appearance SLIGHTLY CLOUDY (CLEAR) Urine pH 5.0 (5-6) Ur Specific [place] 1.010 (1.005-1.025) Urine Protein NEGATIVE (Negative) Urine Ketones NEGATIVE (NEGATIVE) Urine Blood NEGATIVE (0-5) Ubaldo/ul Urine Nitrite NEGATIVE (NEGATIVE) Urine Bilirubin NEGATIVE (NEGATIVE) Urine Urobilinogen NEGATIVE (0-1) mg/dL Ur Leukocyte Esterase SMALL (NEGATIVE) Urine WBC (Auto) 26-50 (0-5) /HPF Urine RBC (Auto) 3-5 (0-2) /HPF U Hyaline Cast (Auto) 3-5 (0-2) /LPF U Epithel Cells (Auto) FEW (FEW) /HPF Urine Bacteria (Auto) FEW (NEGATIVE) /HPF U Non-Squamous Epi Cells OCCASIONAL (FEW) /HPF Urine Culture Reflexed YES (NO) Urine Glucose >=500 (NEGATIVE) mg/dL SARS-CoV-2 (PCR) (NEGATIVE) Slides for Path Review 04/12/21 Range/Units 11:34 WBC (4.0-10.5) K/mm3 RBC (4.1-5.4) M/mm3 Hgb (12.0-16.0) gm/dl Hct (35-47) % MCV (78-100) fl MCH (26-32) pg MCHC (32-36) g/dl RDW (11.5-14.0) % Plt Count (150-450) K/mm3 MPV (7.5-11.0) fl Gran % (36.0-66.0) % Eos # (Auto) (0-0.5) Absolute Lymphs (auto) (1.0-4.6) Absolute Monos (auto) (0.0-1.3) Lymphocytes % (24.0-44.0) % Monocytes % (0.0-12.0) % Eosinophils % (0.00-5.0) % Basophils % (0.0-0.4) % Absolute Granulocytes (1.4-6.9) Basophils # (0-0.4) Sodium (137-145) mmol/L Potassium (3.5-5.1) mmol/L Chloride (98-107) mmol/L Carbon Dioxide (22-30) mmol/L Anion Gap (5-15) MEQ/L BUN (7-17) mg/dL Creatinine (0.52-1.04) mg/dL Estimated GFR ML/MIN Glucose (74-106) mg/dL POC Glucometer 397 H (74 to 106) mg/dL Hemoglobin A1c (4.5-6.0) % Lactic Acid (0.4-2.0) Calcium (8.4-10.2) mg/dL Magnesium (1.6-2.3) mg/dL Total Bilirubin (0.2-1.3) mg/dL AST (14-36) U/L ALT (0-35) U/L Alkaline Phosphatase (38-126) U/L Troponin I (0.000-0.034) ng/mL NT-Pro-B Natriuret Pep (0-900) pg/mL Serum Total Protein (6.3-8.2) g/dL Albumin (3.5-5.0) g/dL Urine Color (YELLOW) Urine Appearance (CLEAR) Urine pH (5-6) Ur Specific [place] (1.005-1.025) Urine Protein (Negative) Urine Ketones (NEGATIVE) Urine Blood (0-5) Ubaldo/ul Urine Nitrite (NEGATIVE) Urine Bilirubin (NEGATIVE) Urine Urobilinogen (0-1) mg/dL Ur Leukocyte Esterase (NEGATIVE) Urine WBC (Auto) (0-5) /HPF Urine RBC (Auto) (0-2) /HPF U Hyaline Cast (Auto) (0-2) /LPF U Epithel Cells (Auto) (FEW) /HPF Urine Bacteria (Auto) (NEGATIVE) /HPF U Non-Squamous Epi Cells (FEW) /HPF Urine Culture Reflexed (NO) Urine Glucose (NEGATIVE) mg/dL SARS-CoV-2 (PCR) (NEGATIVE) Slides for Path Review Accuchecks Date 04/12/21 Date 04/11/21 Time 07:09 Time 22:00 - Radiology Impressions Radiology Exams & Impressions: Radiology Procedures Category Date Time Status CHEST 1 VIEW (PORTABLE) Stat Exams 04/11/21 17:13 Completed - Other Procedures and Tests Respiratory Therapy 04/11/21 21:18 Oxygen NASAL CANNULA 2 lpm Respiratory Therapy Assessment DAILY Assessment/Plan (1) Hyponatremia Current Visit: Yes Status: Acute Assessment & Plan: Chief Complaint Diagnosis hypo natrimia, pneu Allergies Allergy/AdvReac Type Severity Reaction Status Date / Time adhesive tape Allergy Mild Blisters Verified 04/07/21 14:46 clindamycin AdvReac Mild Skin Verified 04/07/21 14:46 Irritation bee stings Allergy Mild Anaphylactic Uncoded 01/24/21 19:15 Reaction Vital Signs (Last 24 hours) Temp Pulse Resp BP Pulse Ox 04/12/21 11:38 97.9 F 106 H 18 151/79 100 04/12/21 10:50 106 H 18 97 04/12/21 07:11 98.2 F 98 H 22 145/90 92 L 04/12/21 06:56 97 H 22 99 04/12/21 03:34 97.9 F 96 H 18 162/79 100 04/12/21 00:00 97.7 F 81 18 140/67 96 04/11/21 23:22 102 H 18 98 04/11/21 22:30 97.7 F 100 H 19 138/71 100 04/11/21 20:32 98 H 19 99 04/11/21 20:00 100 H 20 134/84 99 04/11/21 19:00 104 H 20 169/108 99 04/11/21 18:13 100 04/11/21 17:47 96 H 22 100 04/11/21 17:00 92 H 18 182/95 99 04/11/21 16:02 100 H 15 169/86 100 04/11/21 15:24 100 04/11/21 14:54 97.9 F 102 H 18 194/97 100 Current Medications Generic Name Dose Route Start Last Admin Trade Name Freq PRN Reason Stop Dose Admin Acetaminophen 650 mg 04/11/21 20:35 Tylenol 325 Mg PO 05/11/21 20:34 Q4H PRN PRN PAIN AND/OR FEVER Hydrocodone Bitart/Acetaminophen 1 tablet 04/11/21 22:00 04/12/21 09:42 Hydrocodone-Acetamin 10-325 Mg PO 04/16/21 21:59 1 tablet BID TISHA Administration Albuterol Sulfate 2.5 mg 04/12/21 07:00 04/12/21 10:49 Proventil 2.5 Mg/3 Ml Neb IH 05/12/21 06:59 2.5 mg QIDRT TISHA Administration Albuterol Sulfate 2.5 mg 04/11/21 21:58 04/11/21 23:22 Proventil 2.5 Mg/3 Ml Neb IH 05/11/21 21:57 2.5 mg Q4H PRN PRN Administration SHORTNESS OF BREATH/WHEEZING Aspirin 81 mg 04/12/21 10:00 04/12/21 09:36 Ecotrin 81 Mg PO 05/12/21 09:59 81 mg DAILY TISHA Administration Docusate Sodium 100 mg 04/12/21 07:11 Colace 100 Mg PO 05/12/21 07:10 HSPRN PRN CONSTIPATION Duloxetine HCl 30 mg 04/11/21 22:00 04/12/21 09:36 Cymbalta 30 Mg Capsule PO 05/11/21 21:59 30 mg BID TISHA Administration Ergocalciferol 50,000 unit 04/18/21 10:00 Vitamin D2 PO 05/18/21 09:59 CHEW TISHA Famotidine 20 mg 04/11/21 22:00 04/12/21 09:34 Pepcid 20 Mg Vial IV 05/11/21 21:59 20 mg Q12HT TISHA Administration Ferrous Sulfate 325 mg 04/12/21 10:00 04/12/21 09:35 Feosol 325 Mg PO 05/12/21 09:59 325 mg BID TISHA Administration Gabapentin 400 mg 04/12/21 10:00 04/12/21 09:35 Neurontin 400 Mg PO 05/12/21 09:59 400 mg TID TISHA Administration Hydroxyzine HCl 12.5 mg 04/12/21 10:00 04/12/21 09:37 Atarax 25 Mg PO 05/12/21 09:59 12.5 mg BID TISHA Administration Sodium Chloride 1,000 mls @ 75 mls/hr 04/11/21 20:35 04/11/21 22:39 Sodium Chloride 0.9% 1000 Ml IV 05/11/21 20:34 75 mls/hr .[id number] TISHA Administration Azithromycin 500 mg in 250 mls @ 250 mls/hr 04/12/21 10:00 04/12/21 09:33 Zithromax 500 Mg/ 250 Ml Nacl Premix IV 05/12/21 09:59 250 mls/hr Q24H10 TISHA Administration Ceftriaxone Sodium/Dextrose 1 g in 50 mls @ 100 mls/hr 04/12/21 10:00 04/12/21 09:30 Rocephin 1 Gm-D5w 50 Ml Bag IV 04/15/21 09:59 100 mls/hr Q24H10 TISHA Administration Insulin Glargine 20 unit 04/12/21 08:00 04/12/21 08:12 Lantus Insulin SQ 05/12/21 07:59 20 unit BID@0800,2000 TISHA Administration Insulin Human Lispro 0 unit 04/11/21 20:35 04/12/21 08:12 Humalog SQ 05/11/21 20:34 10 unit UD PRN Administration HYPERGLYCEMIA Insulin Human Lispro 10 unit 04/12/21 08:00 04/12/21 08:11 Humalog SQ 05/12/21 07:59 10 unit TIDWMEALS TISHA Administration Levothyroxine Sodium 25 mcg 04/12/21 10:00 04/12/21 09:35 Synthroid 25 Mcg PO 05/12/21 09:59 25 mcg DAILY TISHA Administration Midodrine 10 mg 04/11/21 22:00 04/12/21 09:36 Proamatine 5 Mg PO 05/11/21 21:59 10 mg QID TISHA Administration Nicotine 14 mg 04/12/21 22:00 Nicoderm Cq 14 Mg TOP 05/12/21 21:59 Q24H22 TISHA Pantoprazole Sodium 40 mg 04/12/21 10:00 04/12/21 09:36 Protonix 40mg Tablet PO 05/12/21 09:59 40 mg DAILY TISHA Administration Promethazine HCl 25 mg 04/12/21 07:11 04/12/21 10:29 Phenergan 25 Mg PO 05/12/21 07:10 25 mg Q6HPRN PRN Administration NAUSEA/VOMITING Simvastatin 10 mg 04/12/21 22:00 Zocor 10mg PO 05/12/21 21:59 HS TISHA Tiotropium [place] 1 ea 04/12/21 10:00 04/12/21 06:52 Spiriva 18 Mcg/Cap Inhaler IH 05/12/21 09:59 1 ea DAILY TISHA Administration Discontinued Medications Generic Name Dose Route Start Last Admin Trade Name Freq PRN Reason Stop Dose Admin Albuterol/Ipratropium 3 ml 04/11/21 16:42 04/11/21 17:47 Duoneb 0.5-3 Mg/3 Ml Neb IH 04/11/21 16:43 3 ml STAT ONE Administration Albuterol/Ipratropium Confirm 04/11/21 17:29 Duoneb 0.5-3 Mg/3 Ml Neb Administered 04/11/21 17:30 Dose 3 ml IH .STK-MED ONE Albuterol/Ipratropium 3 ml 04/11/21 20:35 Duoneb 0.5-3 Mg/3 Ml Neb IH 05/11/21 20:34 QIDRT TISHA Methylprednisolone Sodium 0 mg 04/11/21 16:42 04/11/21 17:13 Succinate 80 mg/ Sterile Water IV 04/11/21 16:43 80 mg 2 ml STAT ONE Administration Ceftriaxone Sodium/Dextrose 2 g in 50 mls @ 100 mls/hr 04/11/21 17:36 04/11/21 18:43 Rocephin 2 Gm-D5w 50ml Bag IV 04/11/21 18:05 Infused STAT STA Infusion Azithromycin 500 mg in 250 mls @ 250 mls/hr 04/11/21 17:36 04/11/21 18:57 Zithromax 500 Mg/ 250 Ml Nacl Premix IV 04/11/21 18:35 250 ml/hr STAT STA 250 mls/hr Administration Ceftriaxone Sodium/Dextrose Confirm 04/11/21 18:07 Rocephin 2 Gm-D5w 50ml Bag Administered 04/11/21 18:08 Dose 2 g in 50 mls @ ud IV .STK-MED ONE Azithromycin Confirm 04/11/21 18:54 Zithromax 500 Mg/ 250 Ml Nacl Premix Administered 04/11/21 18:55 Dose 500 mg in 250 mls @ ud IV .STK-MED ONE Insulin Glargine 20 unit 04/11/21 22:00 04/11/21 22:37 Lantus Insulin SQ 05/11/21 21:59 20 unit BID TISHA Administration Methylprednisolone Sodium Succinate Confirm 04/11/21 17:11 Solu-Medrol Administered 04/11/21 17:12 Dose 125 mg .ROUTE .STK-MED ONE Nicotine 14 mg 04/11/21 22:15 04/11/21 22:38 Nicoderm Cq 14 Mg TOP 05/11/21 22:14 14 mg Q24H TISHA Administration Sterile Water Confirm 04/11/21 17:11 Sterile H2o 10 Ml Administered 04/11/21 17:12 Dose 10 ml IJ .STK-MED ONE Intake & Output (Last 24 hours) 04/10/21 04/11/21 04/12/21 04/13/21 11:59 11:59 11:59 11:59 Intake Total 1778 Balance 1778 Weight 75.9 kg Microbiology Results (Last 24 hours) 04/12/21 06:27 Clean Catch Midstream Urine Culture - Pending 04/11/21 17:10 Blood Blood Culture Gram Stain - Pending 04/11/21 17:10 Blood Blood Culture - Pending Laboratory Results (Last 24 hours) 04/12/21 04/12/21 04/12/21 11:34 06:38 06:27 WBC RBC Hgb Hct MCV MCH MCHC RDW Plt Count MPV Gran % Eos # (Auto) Absolute Lymphs (auto) Absolute Monos (auto) Lymphocytes % Monocytes % Eosinophils % Basophils % Absolute Granulocytes Basophils # Sodium Potassium Chloride Carbon Dioxide Anion Gap BUN Creatinine Estimated GFR Glucose POC Glucometer 397 H 412 H Hemoglobin A1c Lactic Acid Calcium Magnesium Total Bilirubin AST ALT Alkaline Phosphatase Troponin I NT-Pro-B Natriuret Pep Serum Total Protein Albumin Urine Color YELLOW Urine Appearance SLIGHTLY CLOUDY Urine pH 5.0 Ur Specific [place] 1.010 Urine Protein NEGATIVE Urine Ketones NEGATIVE Urine Blood NEGATIVE Urine Nitrite NEGATIVE Urine Bilirubin NEGATIVE Urine Urobilinogen NEGATIVE Ur Leukocyte Esterase SMALL Urine WBC (Auto) 26-50 Urine RBC (Auto) 3-5 U Hyaline Cast (Auto) 3-5 U Epithel Cells (Auto) FEW Urine Bacteria (Auto) FEW U Non-Squamous Epi Cells OCCASIONAL Urine Culture Reflexed YES Urine Glucose >=500 SARS-CoV-2 (PCR) Slides for Path Review 04/12/21 04/12/21 04/12/21 06:00 04:40 04:40 WBC 5.4 RBC 3.20 L Hgb 9.0 L Hct 28.6 L MCV 89.4 MCH 28.1 MCHC 31.5 L RDW 16.4 H Plt Count 145 L MPV 8.8 Gran % 87.3 H Eos # (Auto) 0.01 Absolute Lymphs (auto) 0.53 L Absolute Monos (auto) 0.14 Lymphocytes % 9.7 L Monocytes % 2.6 Eosinophils % 0.2 Basophils % 0.2 Absolute Granulocytes 4.75 Basophils # 0.01 Sodium 117 L* Potassium 4.4 D Chloride 84 L Carbon Dioxide 25 Anion Gap 12.3 BUN 19 H Creatinine 1.69 H Estimated GFR 33.6 Glucose 494 H POC Glucometer Hemoglobin A1c 5.82 Lactic Acid Calcium 7.3 L Magnesium Total Bilirubin 0.10 L AST 25 ALT 14 Alkaline Phosphatase 159 H Troponin I NT-Pro-B Natriuret Pep Serum Total Protein 5.8 L Albumin 2.5 L Urine Color Urine Appearance Urine pH Ur Specific [place] Urine Protein Urine Ketones Urine Blood Urine Nitrite Urine Bilirubin Urine Urobilinogen Ur Leukocyte Esterase Urine WBC (Auto) Urine RBC (Auto) U Hyaline Cast (Auto) U Epithel Cells (Auto) Urine Bacteria (Auto) U Non-Squamous Epi Cells Urine Culture Reflexed Urine Glucose SARS-CoV-2 (PCR) Slides for Path Review YES 04/12/21 04/12/21 04/11/21 04:40 01:53 22:53 WBC RBC Hgb Hct MCV MCH MCHC RDW Plt Count MPV Gran % Eos # (Auto) Absolute Lymphs (auto) Absolute Monos (auto) Lymphocytes % Monocytes % Eosinophils % Basophils % Absolute Granulocytes Basophils # Sodium Potassium Chloride Carbon Dioxide Anion Gap BUN Creatinine Estimated GFR Glucose POC Glucometer Hemoglobin A1c Lactic Acid Calcium Magnesium Total Bilirubin AST ALT Alkaline Phosphatase Troponin I < 0.012 < 0.012 < 0.012 NT-Pro-B Natriuret Pep Serum Total Protein Albumin Urine Color Urine Appearance Urine pH Ur Specific [place] Urine Protein Urine Ketones Urine Blood Urine Nitrite Urine Bilirubin Urine Urobilinogen Ur Leukocyte Esterase Urine WBC (Auto) Urine RBC (Auto) U Hyaline Cast (Auto) U Epithel Cells (Auto) Urine Bacteria (Auto) U Non-Squamous Epi Cells Urine Culture Reflexed Urine Glucose SARS-CoV-2 (PCR) Slides for Path Review 04/11/21 04/11/21 04/11/21 21:00 19:45 18:39 WBC RBC Hgb Hct MCV MCH MCHC RDW Plt Count MPV Gran % Eos # (Auto) Absolute Lymphs (auto) Absolute Monos (auto) Lymphocytes % Monocytes % Eosinophils % Basophils % Absolute Granulocytes Basophils # Sodium Potassium Chloride Carbon Dioxide Anion Gap BUN Creatinine Estimated GFR Glucose POC Glucometer 276 H Hemoglobin A1c Lactic Acid Calcium Magnesium Total Bilirubin AST ALT Alkaline Phosphatase Troponin I < 0.012 NT-Pro-B Natriuret Pep Serum Total Protein Albumin Urine Color Urine Appearance Urine pH Ur Specific [place] Urine Protein Urine Ketones Urine Blood Urine Nitrite Urine Bilirubin Urine Urobilinogen Ur Leukocyte Esterase Urine WBC (Auto) Urine RBC (Auto) U Hyaline Cast (Auto) U Epithel Cells (Auto) Urine Bacteria (Auto) U Non-Squamous Epi Cells Urine Culture Reflexed Urine Glucose SARS-CoV-2 (PCR) NEGATIVE Slides for Path Review 04/11/21 04/11/21 04/11/21 17:10 17:10 16:45 WBC 8.8 RBC 3.09 L Hgb 8.6 L Hct 27.3 L MCV 88.3 MCH 27.8 MCHC 31.5 L RDW 16.4 H Plt Count 164 MPV 8.7 Gran % 73.1 H Eos # (Auto) 0.24 Absolute Lymphs (auto) 1.50 Absolute Monos (auto) 0.57 Lymphocytes % 17.1 L Monocytes % 6.5 Eosinophils % 2.7 Basophils % 0.6 Absolute Granulocytes 6.43 Basophils # 0.05 Sodium 121 L Potassium 3.5 Chloride 86 L Carbon Dioxide 29 Anion Gap 9.1 BUN 17 Creatinine 1.70 H Estimated GFR 33.4 Glucose 338 H POC Glucometer Hemoglobin A1c Lactic Acid Calcium 7.5 L Magnesium 1.7 Total Bilirubin 0.20 AST 24 ALT 12 Alkaline Phosphatase 155 H Troponin I < 0.012 NT-Pro-B Natriuret Pep 3350 H Serum Total Protein 5.6 L Albumin 2.3 L Urine Color Urine Appearance Urine pH Ur Specific [place] Urine Protein Urine Ketones Urine Blood Urine Nitrite Urine Bilirubin Urine Urobilinogen Ur Leukocyte Esterase Urine WBC (Auto) Urine RBC (Auto) U Hyaline Cast (Auto) U Epithel Cells (Auto) Urine Bacteria (Auto) U Non-Squamous Epi Cells Urine Culture Reflexed Urine Glucose SARS-CoV-2 (PCR) Slides for Path Review 04/11/21 16:42 WBC RBC Hgb Hct MCV MCH MCHC RDW Plt Count MPV Gran % Eos # (Auto) Absolute Lymphs (auto) Absolute Monos (auto) Lymphocytes % Monocytes % Eosinophils % Basophils % Absolute Granulocytes Basophils # Sodium Potassium Chloride Carbon Dioxide Anion Gap BUN Creatinine Estimated GFR Glucose POC Glucometer Hemoglobin A1c Lactic Acid 1.1 Calcium Magnesium Total Bilirubin AST ALT Alkaline Phosphatase Troponin I NT-Pro-B Natriuret Pep Serum Total Protein Albumin Urine Color Urine Appearance Urine pH Ur Specific [place] Urine Protein Urine Ketones Urine Blood Urine Nitrite Urine Bilirubin Urine Urobilinogen Ur Leukocyte Esterase Urine WBC (Auto) Urine RBC (Auto) U Hyaline Cast (Auto) U Epithel Cells (Auto) Urine Bacteria (Auto) U Non-Squamous Epi Cells Urine Culture Reflexed Urine Glucose SARS-CoV-2 (PCR) Slides for Path Review Orders (Last 24 hours) Category Date Time Status Bedrest ROUTINE Activity 04/11/21 20:35 Active Up With Assistance ROUTINE Activity 04/11/21 20:35 Active Shear Grinder Operator Helper STAT Care 04/11/21 16:43 Completed Code Status Order ROUTINE Care 04/11/21 20:35 Active EKG-ER Only STAT Care 04/11/21 16:42 Completed Fall Protocol Q1H Care 04/11/21 20:35 Active IV Care Q6H Care 04/11/21 20:35 Active IV Insertion STAT Care 04/11/21 16:42 Completed Neuro Checks Q1H Care 04/11/21 20:35 Active Nursing [Miscellaneous Nursing Order] ROUTINE Care 04/12/21 10:35 Active Oxygen-ED Only Nasal Cannula 3 lpm Care 04/11/21 17:27 Completed POCT Glucose Check ACHS Care 04/11/21 20:[address] in Observation ROUTINE Care 04/11/21 20:35 Active Tenzin Avelar ROUTINE Care 04/11/21 20:35 Active Telemetry q6h Care 04/11/21 20:35 Active Cardio-Pulmonary Rehab .as ordered Cons 04/11/21 21:08 Active News Clipping Cutter/Discharge Plan ROUTINE Cons 04/12/21 01:20 Active Nutritional Admission Screen ONCE Diet 04/12/21 01:20 Active CHEST 1 VIEW (PORTABLE) Stat Exams 04/11/21 17:13 Completed BLOOD CULTURE Stat Lab 04/11/21 16:43 Received CBC W DIFF AM.LAB Lab 04/12/21 04:40 Completed CBC W DIFF Stat Lab 04/11/21 17:10 Completed CMP AM.LAB Lab 04/12/21 04:40 Completed CMP Stat Lab 04/11/21 17:10 Completed CULTURE,URINE Stat Lab 04/12/21 06:27 Received HEMOGLOBIN A1C Urgent Lab 04/12/21 06:00 Completed Lactic Acid Stat Lab 04/11/21 16:42 Completed MAGNESIUM Stat Lab 04/11/21 17:10 Completed NT PRO BNP Stat Lab 04/11/21 17:10 Completed POCT GLUCOSE Stat Lab 04/11/21 21:00 Completed POCT GLUCOSE Stat Lab 04/12/21 06:38 Completed POCT GLUCOSE Stat Lab 04/12/21 11:34 Completed SARS-CoV-2 Xpert Express Stat Lab 04/11/21 18:39 Completed TROPONIN Q3H Lab 04/11/21 16:45 Completed TROPONIN Q3H Lab 04/11/21 19:45 Completed TROPONIN Q3H Lab 04/11/21 22:53 Completed TROPONIN Q3H Lab 04/12/21 01:53 Completed TROPONIN Q3H Lab 04/12/21 04:40 Completed UA W/RFX UR CULTURE Stat Lab 04/12/21 06:27 Completed Acetaminophen 325 mg [Tylenol 325 mg] Med 04/11/21 20:35 Active 650 mg PO Q4H PRN PRN Albuterol 2.5 mg/3 ml Neb [Proventil 2.5 mg/3 ml Neb Med 04/11/21 21:58 Active ] 2.5 mg IH Q4H PRN PRN Albuterol 2.5 mg/3 ml Neb [Proventil 2.5 mg/3 ml Neb Med 04/12/21 07:00 Active ] 2.5 mg IH QIDRT Albuterol/Ipratropium 3ml Neb* [DUONEB 0.5-3 MG/3 ml Med 04/11/21 17:29 Discontinued Neb] 3 ml IH .STK-MED ONE Albuterol/Ipratropium 3ml Neb* [DUONEB 0.5-3 MG/3 ml Med 04/11/21 20:35 Discontinued Neb] 3 ml IH QIDRT Albuterol/Ipratropium 3ml Neb* [DUONEB 0.5-3 MG/3 ml Med 04/11/21 16:42 Discontinued Neb] 3 ml IH STAT ONE Aspirin EC 81 mg [Ecotrin 81 mg] Med 04/12/21 10:00 Active 81 mg PO DAILY Azithromycin 500 mg/250 ml [Zithromax 500 MG/ 250 ML Med 04/12/21 10:00 Active NaCl Premix] 500 mg in 250 ml IV Q24H10 Azithromycin 500 mg/250 ml [Zithromax 500 MG/ 250 ML Med 04/11/21 17:36 Discontinued NaCl Premix] 500 mg in 250 ml IV STAT Azithromycin 500 mg/250 ml [Zithromax 500 MG/ 250 ML Med 04/11/21 18:54 Discontinued NaCl Premix] 500 mg in 250 ml IV UD Ceftriaxone 1 GM/50 ML PREMIX* [ROCEPHIN 1 Gm-D5w 50 ml Med 04/12/21 10:00 Active Bag] 1 g in 50 ml IV Q24H10 Ceftriaxone 2 GM/50 ML PREMIX* [ROCEPHIN 2 Gm-D5w 50ML Med 04/11/21 17:36 Discontinued BAG] 2 g in 50 ml IV STAT Ceftriaxone 2 GM/50 ML PREMIX* [ROCEPHIN 2 Gm-D5w 50ML Med 04/11/21 18:07 Discontinued BAG] 2 g in 50 ml IV UD Docusate Sodium 100 mg [Colace 100 MG] Med 04/12/21 07:11 Active 100 mg PO HSPRN PRN Duloxetine HCl 30 mg [Cymbalta 30 MG Capsule] Med 04/11/21 22:00 Active 30 mg PO BID Ergocalciferol (Vitamin D2) [Vitamin D2] Med 04/18/21 10:00 Active 50,000 unit PO CHEW Famotidine 20 mg Vial [Pepcid 20 MG VIAL] Med 04/11/21 22:00 Active 20 mg IV Q12HT Ferrous Sulfate 325 mg [Feosol 325 mg] Med 04/12/21 10:00 Active 325 mg PO BID Gabapentin 400 mg [Neurontin 400 MG] Med 04/12/21 10:00 Active 400 mg PO TID Hydrocodone/Acetaminophen [Hydrocodone-Acetamin 10-325 Med 04/11/21 22:00 Active mg] 1 tablet PO BID Hydroxyzine HCl 25 mg [Atarax 25 mg] Med 04/12/21 10:00 Active 12.5 mg PO BID Insulin Glargine [Lantus Insulin] Med 04/11/21 22:00 Discontinued 20 unit SQ BID Insulin Glargine [Lantus Insulin] Med 04/12/21 08:00 Active 20 unit SQ BID@0800,2000 Insulin Lispro [Humalog] Med 04/12/21 08:00 Active 10 unit SQ TIDWMEALS Insulin Lispro [Humalog] Med 04/11/21 20:35 Active See Dose Instructions SQ UD PRN Levothyroxine Sodium 25 Mcg [Synthroid 25 Mcg] Med 04/12/21 10:00 Active 25 mcg PO DAILY Methylprednis Sod Succ 125 mg* [solu-MEDROL] Med 04/11/21 17:11 Discontinued 125 mg .ROUTE .STK-MED ONE Methylprednis Sod Succ 125 mg* [solu-MEDROL] 80 mg Med 04/11/21 16:42 Discontinued Water For Injection,Sterile [Sterile H2O 10 ml] 2 ml IV STAT Midodrine HCl 5 mg [Proamatine 5 mg] Med 04/11/21 22:00 Active 10 mg PO QID NaCl 0.9% 1000 ml [Sodium Chloride 0.9% 1000 ML] 1,000 Med 04/11/21 20:35 Active ml IV 75 mls/hr Nicotine 14 mg [Nicoderm Cq 14 mg] Med 04/11/21 22:15 Discontinued 14 mg TOP Q24H Nicotine 14 mg [Nicoderm Cq 14 mg] Med 04/12/21 22:00 Active 14 mg TOP Q24H22 PANTOPRAZOLE 40 mg Tablet [Protonix 40MG Tablet] Med 04/12/21 10:00 Active 40 mg PO DAILY Promethazine HCl 25 mg [Phenergan 25 mg] Med 04/12/21 07:11 Active 25 mg PO Q6HPRN PRN Simvastatin 10 mg [Zocor 10MG] Med 04/12/21 22:00 Active 10 mg PO HS Tiotropium [place] Inhaler [Spiriva 18 Mcg/Cap Med 04/12/21 10:00 Active Inhaler] 1 ea IH DAILY Water For Injection,Sterile [Sterile H2O 10 ml] Med 04/11/21 17:11 Discontinued 10 ml IJ .STK-MED ONE Oxygen NASAL CANNULA 2 lpm RT 04/11/21 21:18 Active Pulse Oximetry .continuos RT 04/11/21 21:51 Active RT Screen per Nursing Assess ONCE RT 04/12/21 01:20 Completed Respiratory Therapy Assessment DAILY RT 04/11/21 17:46 Completed Respiratory Therapy Assessment DAILY RT 04/11/21 21:18 Active Smoking Cessation Education ONCE RT 04/12/21 01:20 Completed Patient Care Notes (Last 24 hours) 04/12/21 11:25 Case Management Note by Makenzie Simpson WILL DEFER CASE MANAGEMENT ASSESSMENT- PATIENT TO TRANSFER TO [facility] UNDER DR. MCGILL Initialized on 04/12/21 11:25 - END OF NOTE 04/12/21 11:07 Nursing Note by Chan Kurtz SPOKE WITH NABILA FROM DR MCGILL OFFICE STATING DR MCGILL HAS ACCEPTED PT AND PLACED HER ON WAITING LIST FOR A BED AT [place]. [facility] HAS OPEN BEDS BUT SHE STATED HE DOES NOT GO TO [facility] AND THATS WHY HE PLACED HER ON WAITING LIST FOR [place] SO HE CAN FOLLOW HER. SHE STATED IF WE DO NOT HEAR BACK FROM [place] WITH A BED BY [address] MCGILL OFFICE BACK Initialized on 04/12/21 11:07 - END OF NOTE 04/12/21 10:35 Case Management Note by Makenzie Simpson S/W DR. LORENZ- NOTIFIED OF CRITICAL NA LEVEL AND DUE FOR DIALYSIS TODAY. HE WOULD LIKE TO SEE IF NEPHROLOGY WILL TAKE HER AT [facility]. CALLED AND S/W DR. CHICAS NURSE (THAT IS HER CUSTOM FRAMING SPECIALIST)- SHE WAS GIVEN INFORMATION AND WILL CALL US BACK Initialized on 04/12/21 10:35 - END OF NOTE 04/12/21 09:07 Nursing Note by Chan Kurtz CALLED DR CANALES NURSE, INFORMED PT DIALYSIS TIME, STATES SHE WILL SEE PT AT NOON Initialized on 04/12/21 09:07 - END OF NOTE 04/12/21 08:52 Nursing Note by Chan Kurtz PT HAS DIALYSIS AT [facility] PT STATES HER SCHED TIME IS [id number] Initialized on 04/12/21 08:52 - END OF NOTE Patient does need dialysis. Dr Mcgill contacted. He is accepting patient at [facility]. Awaiting bed at [facility] Code(s): E87.1 - HYPO-OSMOLALITY AND HYPONATREMIA (2) Acute renal insufficiency Current Visit: No Status: Acute Code(s): N28.9 - DISORDER OF KIDNEY AND URETER, UNSPECIFIED (3) Anemia of chronic disease Current Visit: No Status: Acute Code(s): D63.8 - ANEMIA IN OTHER CHRONIC DISEASES CLASSIFIED ELSEWHERE (4) COPD (chronic obstructive pulmonary disease) Current Visit: No Status: Acute (5) COPD exacerbation Current Visit: No Status: Acute Code(s): J44.1 - CHRONIC OBSTRUCTIVE PULMONARY DISEASE W (ACUTE) EXACERBATION (6) Diabetes mellitus type 2, uncontrolled Current Visit: No Status: Acute Code(s): E11.65 - TYPE 2 DIABETES MELLITUS WITH HYPERGLYCEMIA (7) ESRD (end stage renal disease) Current Visit: No Status: Acute Code(s): N18.6 - END STAGE RENAL DISEASE
[2021-04-12] MEDS: Sodium Chloride 0.9% 1000 ML 1,000 ML IV SCH (16:43)
[2021-04-12] MEDS ORDERED: NICODERM CQ 14 MG TOP SCH (22:00)
[2021-04-12] MEDS ORDERED: Zocor 10MG PO SCH (22:00)
[2021-04-13] MEDS: PROVENTIL 2.5 MG/3 ML NEB IH SCH (06:49)
[2021-04-13 06:52] VITALS: PULSE 92
[2021-04-13 07:05] VITALS: BP 156/90
[2021-04-13] MEDS ORDERED: D50W 50 ml Abboject IV ONE (07:32)
[2021-04-13] MEDS: Spiriva 18 Mcg/Cap Inhaler IH SCH (07:50)
[2021-04-13 18:45] VITALS: O2SAT 100
[2021-04-18] MEDS ORDERED: VITAMIN D2 PO SCH (10:00)
== END 2021-04-13 08:48 | disposition short-term general hospital (02) ==
LOC: ED 14:53 → MED SURG 20:20
PROVIDERS: ADMIT Family Medicine; ATTEND Family Medicine
DX: E87.1 Hypo-osmolality and hyponatremia (principal); R06.02 Shortness of breath; E11.22 Type 2 diabetes mellitus with diabetic chronic kidney disease; I12.0 Hypertensive chronic kidney disease with stage 5 chronic kidney disease or end stage renal disease; N18.6 End stage renal disease; E87.6 Hypokalemia; Z99.2 Dependence on renal dialysis; N39.0 Urinary tract infection, site not specified; E11.65 Type 2 diabetes mellitus with hyperglycemia; E78.5 Hyperlipidemia, unspecified; Z89.519 Acquired absence of unspecified leg below knee; R07.9 Chest pain, unspecified; M79.89 Other specified soft tissue disorders; Z79.899 Other long term (current) drug therapy; Z86.718 Personal history of other venous thrombosis and embolism; F17.200 Nicotine dependence, unspecified, uncomplicated; R53.1 Weakness; D63.8 Anemia in other chronic diseases classified elsewhere; J44.1 Chronic obstructive pulmonary disease with (acute) exacerbation; Z20.822 Contact with and (suspected) exposure to COVID-19
CPT/HCPCS: 36000; 36415; 71045; 80053; 81001; 82947; 83036; 83605; 83735; 83880; 84484; 85025; 87040; 87086; 93005; 93041; 93268; 94640; 94762; 96374; 99285; G0378; U0003; J0456; J0696; J1817; J2930; J7609; A9270-GY